=== PATIENT | male | born 1960 | race Caucasian/White ===

== ENCOUNTER 2018-11-24 15:53 | Emergency (ER) | payer BC, SELFPAY ==
[2018-11-24 16:02] VITALS: BP 199/86; PULSE 47; RESP 18; TEMP 36.5; O2SAT 98
--- NOTE | 2018-11-24 16:02 | DI.COMBO_ITS ---
SYMPTOM/DIAGNOSIS: SOB, ELEVATED D DIMER, ? PE PE CHEST CT: CT scan of the chest was performed according to the pulmonary embolus protocol. There are no priors for comparison. The thoracic aorta is intact. There is mild ectasia. No evidence of thoracic aortic dissection is seen. There is no evidence of a pulmonary embolus. Heart size is within normal limits. No significant pericardial effusion is seen. No evidence of right ventricular dysfunction is present. No thoracic adenopathy, pleural effusion or pneumothorax is present. In the lungs, there are ground glass opacities in the right upper lobe anteriorly with a tree and bud configuration noted. There is a 1 cm., pleural based nodular opacity in the right lower lobe laterally. There is a mild surrounding patchy ground glass opacity associated with it. The tracheobronchial tree is unremarkable. Upper abdominal images show small amount of abdominal ascites in the perihepatic region in the gallbladder fossa. No acute osseous abnormality is identified. IMPRESSION: 1. No evidence of a pulmonary embolus or thoracic aortic dissection. 2. Ground glass opacity in the anterior aspect of the right upper lobe suspicious for an infectious bronchiolitis. 3. Indeterminate 1 cm. pleural based density. Differential considerations include focal atelectasis or pneumonia. Neoplasm cannot be excluded. 4. Small amount of abdominal ascites. PA AND LATERAL CHEST: Comparison is made with 07/21/17. The heart is normal in size. The lungs are clear. The mediastinal structures and pleura appear intact. CONCLUSION: Normal chest.
--- NOTE | 2018-11-24 16:25 | ED.GENADUL_ITS ---
Discharge Plan Disposition Patient Disposition: HOME Condition: Good Discharge Details Chief Complaint: GenMedical Clinical Impression: Atypical pneumonia, Bradycardia, Breath shortness, Acute kidney injury, Incidental pulmonary nodule Primary Care Provider: Sonal Sorensen ED Provider: Ynois Rodriges Home Meds and New Rx's Prescriptions: New prednisone 20 mg tablet 40 mg PO DAILY 4 Days Qty: 8 RF: 0 azithromycin 250 mg tablet 250 mg PO DAILY 4 Days Qty: 4 RF: 0 No Action ibuprofen 200 MG tablet 200 mg PO DIRECTED PRNRF: 0 Discharge Instructions Instructions: Pulmonary Nodules (ED), Pneumonia (ED) Additional Instructions: You will be contacted tomorrow for the administration of Zio patch. Please take the antibiotic and the steroid as directed. Please follow-up with your primary care provider for reevaluation. Please drink 10-12 cups of water minimum per day to stay well-hydrated. You will need your renal function rechecked by your PCP and your prompt follow-up. If you notice any worsening of your symptoms any lightheadedness, dizziness, fainting, chest pain, worsening shortness of breath, fever, chills, vomiting, diarrhea, or abdominal pain, please return immediately for reassessment. As always is a pleasure participating in your care today. Referrals: Sonal Sorensen, [facility] [Primary Care Provider] - Medical Decision Making This is a 58-year-old male with no past medical history who presents today for evaluation of subjective shortness of breath over the last 2 days. He states that the symptoms came on suddenly, he has no associated cough, pleuritic chest pain, arm neck or shoulder pain. He denies a history of cardiac disease but does have a notable family history of cardiac disease. He has no significant PE risk factors. Patient symptoms are not necessarily worsened by exertion. Physical exam is otherwise benign, lungs are clear, no swelling or calf tenderness. No other abnormality. Differential is broad but includes atypical cardiac etiology, pulmonary embolism, or musculoskeletal component. We will get a d-dimer, evaluate for cardiology components, get a chest x-ray and reassess. 6:33 PM Patient's laboratory workup has returned, troponin is normal, d-dimer is notably elevated at 1100, pro BNP is also elevated at 1000 which is atypical for the patient. Unexpectedly the patient's creatinine is notably high at 1.91, with a GFR of 36.37. This does not appear to be in his normal range compared to his previous creatinine of 0.9 in 2017. The patient has not had any excessive NSAIDs, and denies any other significant risk factors that could have caused th is. He denies any wood alcohol ingestion, or other potential toxic component. While waiting for the repeat 4-hour troponin we will notably rehydrate the patient with 2 L normal saline. I did discuss with the patient the risks and benefits of his elevated d-dimer, concern for potential PE. We will reassess the creatinine after rehydration. Additionally we did contact radiology and we do not have the availability of VQ scan at this time. 9:22 PM Patient was rehydrated with 2.5 L of normal saline, repeat labs demonstrate a notable improvement in his renal function, GFR has improved over 40, creatinine is 1.7, I had a repeat long discussion with the patient regarding the risks and benefits of radiographic CT imaging in the risk of contrast, as well as the new literature within the past 5 years demonstrating that there is a minimal risk with IV contrast the scenarios. We also discussed the risks and benefits of missing a potential pulmonary embolism. There is shared decision-making process between the risks and benefits we have decided to go ahead with a CT scan. We will continue to rehydrate the patient with a total of 3 L. Repeat troponin is normal, repeat EKG continues to be benign with continue mild bradycardia of 55. CT scan results have returned and does show evidence of infectious bronchiolitis, as well as patchy groundglass nodular component in the right lower lobe with a differential including atelectasis, small infiltrate, and a vascular anomaly or neoplasm. Notable recommendation for CT follow-up for reevaluation in 3 months. There is also a small amount of abdominal ascites. Repeat abdominal exam continues to demonstrate no significant pain or tenderness. No guarding or rebound or signs of an acute abdomen. Patient's blood pressure is notably improved here in the ED. His pulse continues to be in the mid 40s. He will occasionally jump up to the 60s, while laying in bed. He continues to deny any symptoms of syncope or significant lightheadedness. He did get up and ambulate well without any signs of lightheadedness or near syncope. Although the patient's bradycardia is certainly atypical, do not feel that he needs emergent cardiac evaluation at this time, however he certainly does require close follow-up. We will place a zio patch on the patient, he does have close follow-up scheduled with his PCP we will place him on the referral list for this. I do suspect that this bradycardia may be secondary to an atypical bacterial etiology causing his CT scan findings in conjunction with his shortness of breath. We will add azithromycin for coverage of atypical component, as well as short dose of burst steroids. First dose of azithromycin and prednisone will be given here in the ED. With the patient having a low risk heart score category, as well as negative serial troponins and serial EKGs, I do feel that it is reasonable for discharge with close follow-up with his PCP. In regards to the patient's acute kidney injury I did further discuss his regular fluid intake he states that he really only drinks 2-3 cups of fluid per day at max. Feels that this may be because of his mild kidney injury, as he had a notable improvement with the IV hydration here. I discussed with the patient the importance of regular hydration drinking of 10-12 cups of fluid per day minimum. Also discussed with him the importance of close follow-up with his PCP for repeat CT scan in 3 months to evaluate for any change in the atypical lesion in his lungs. On discussion with him regarding red flags for which to return, the importance of close follow-up, and having a low threshold for return and the patient understands. I have extensively reviewed the treatment plan and discharge instructions with the patient. I have addressed all patient concerns at this time. The patient was made aware of what symptoms to monitor for that would warrant a return to the emergency department. Discussed the plan with the patient, they demonstrate verbal understanding and agreement with our assessment and plan at this time. EKG 16: 11 Rate 58, intervals normal, sinus bradycardia, no evidence of block, no significant ST elevations or depressions inverted T wave in V1 which is normal. No Q waves. No evidence of STEMI EKG 19: 37 Rate 54, intervals normal, sinus bradycardia, no significant ST elevations or depressions, inverted T waves in V1 consistent with prior EKG, no Q waves. No signs of MA prolongation, first-degree block, second-degree block or third- degree block. No evidence of STEMI. IMPRESSION: 1. No pulmonary arterial embolism. 2. Findings suspicious for infectious bronchiolitis within the anterior segment of the right upper lobe. 3. Indeterminate pleural-based density with patchy groundglass and nodular components within the right lower lobe. Differential diagnosis includes atelectasis, small infiltrate, vascular anomaly and neoplasm. Followup CT scan in 3 months is recommended. 4. Small abdominal ascites. Thank you for allowing us to participate in the care of your patient. Dictated and Authenticated by: Michael Hunt MD [facility] General Date/Time Provider Initiated Documentation: 11/24/18 15:58 . HPI Narrative: This is a he does admit to mild abdominal bloating but denies any significant abdominal pain, nausea vomiting or diarrhea. Patient also admits to palpating a notably decreased heart rate at home in the 40s over the last 2 days which he says is very atypical for him. He exercises 3 times per day, he does drink 2 beers per night but denies any alcohol otherwise or IV or illicit drug use. He did take naproxen 48 hours ago but that was the only use of NSAIDs at that time. He denies any previous history of cardiac disease or stroke. He denies any history of blood clots or PEs denies PE risk factors such as recent long car rides, immobilization, recent surgery, prior history of DVT or PE, family history of PE or DVT, morbid obesity, exogenous estrogen and smoking, hemoptysis, history of cancer. Made to a strong family history of cardiac disease in his father had a CABG at the age of 52. His uncle also of a massive heart attack at the age of 50. Patient does not smoke. He has no other complaints or modifying factors. He denies any fevers, chills, numbness, tin gling or weakness. He denies any tearing sensation in his chest or abdomen. 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 . Related Data Home Medications Medication Instructions Recorded Confirmed ibuprofen 200 mg PO DIRECTED PRN 09/27/13 11/24/18 azithromycin 250 mg PO DAILY 4 Days #4 tab 11/24/18 prednisone 40 mg PO DAILY 4 Days #8 tab 11/24/18 Previous Rx's Medication Instructions Recorded azithromycin 250 mg PO DAILY 4 Days #4 tab 11/24/18 prednisone 40 mg PO DAILY 4 Days #8 tab 11/24/18 Allergies Allergy/AdvReac Type Severity Reaction Status Date / Time pseudoephedrine HCl Allergy Heart Unverified 07/21/17 13:13 [From Sudafed] palpatations Review of Systems Review of Systems All systems reviewed & are unremarkable except as noted in HPI and below PFSH Family History Mother Essential hypertension Father Essential hypertension Heart disease Sister No problems noted. Sister No problems noted. Brother No problems noted. Social History Smoking/Tobacco Use Status: Never Substance use type: does not use Do you feel safe at home: Yes Do you feel safe in your relationship?: Yes Exam Narrative Exam Narrative: 1.Const: Well-nourished, Well-developed, appearing stated age 2.Eyes: PERRL, no conjunctival injection, and symmetrical lids. 3.ENT: Atraumatic external nose and ears. Moist MM. Neck: Symmetric, trachea midline, No thyromegaly. 4.CVS: +S1/S2, No murmurs or gallops. Peripheral pulses 2+ and equal in all extremities. Brisk capillary refill in all extremities. Radial pulses are +2 and equal bilaterally. 5.RESP: Unlabored respiratory effort. Clear to auscultation bilaterally. No wheezes rales or rhonchi 6.GI: Soft, Nontender/Nondistended, No hepatosplenomegaly. No guarding or rebound. No pulsatile abdominal mass, or significant abdominal tenderness. 7.MSK: Normocephalic/Atraumatic, Extremities w/o deformity or ttp No cyanosis or clubbing, Normal movement of all extremities. No calf swelling or tenderness. 8.Skin: Warm, Dry. No rashes or lesions. 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 Sensation grossly intact, no focal neurologic deficits. 10.Psych: (AAO) x3. Appropriate mood and affect
[2018-11-24 16:41] LABS: Abs Immature Grans 0.01 k/cumm (0.0-0.09); Absolute Basophil Count 0.04 k/cumm (0.0-0.2); Absolute Eosinophil Count 0.16 k/cumm (0.0-0.7); Absolute Neutrophil Count 2.95 k/cumm (1.2-6.7); Basophils % 0.7; Eosinophils % 2.9; HCT 39.8 % (40.0-50.0); HGB 13.6 g/dL (13.5-17.5); Immature Grans % 0.2; Lymphocytes % 29.3; Mean Corp. HGB Concentration 34.2 g/dL (32.0-36.0); Mean Corpuscular Hemoglobin 31.3 pg (27.0-33.0); Mean Corpuscular Volume 91.5 fL (80-95); Mean Platelet Volume 11.7 fL (8.0-11.0); Monocytes % 12.8; Neutrophils % 54.1; Platelet Count 128 x1000/uL (130-400); RBC 4.35 m/cumm (4.50-6.00); RBC Distribution Width 12.2 % (11.8-14.1); White Blood Cell Count 5.46 k/cumm (4.4-10.8)
[2018-11-24 17:03] LABS: ALT 27 U/L (12-78); AST 23 U/L (15-37); Albumin 3.9 g/dL (3.4-5.0); Alkaline Phosphatase 68 U/L (46-116); Anion Gap 9.3 mmol/L (3-11); BUN 23 mg/dL (7-18); Bilirubin, Total 0.8 mg/dL (0.2-1.0); CO2 28.7 mmol/L (21.0-32.0); CREATININE 1.91 mg/dL (0.70-1.30); Calcium 8.8 mg/dL (8.5-10.1); Chloride 102 mmol/L (98-107); Estimated GFR 36.37 (mL/min/1.73m2); Glucose 75 mg/dL (70-100); Magnesium 2.2 mg/dL (1.8-2.4); Potassium 3.5 mmol/L (3.5-5.1); Sodium 140 mmol/L (136-145); Total Protein 6.8 g/dL (6.4-8.2)
--- NOTE | 2018-11-24 17:12 | DI.VRAD_ITS ---
EXAM: XR Chest, 2 Views EXAM DATE/TIME: 11/24/2018 4:18 PM CLINICAL HISTORY: 58 years old, male; Signs and symptoms; Shortness of breath; Patient HX: PT sts SOB upon resting for 2 days, non smoker. TECHNIQUE: Imaging protocol: XR of the chest, 2 views. COMPARISON: CR CHEST 2 VIEWS PA,LAT 07/21/2017 2:39 PM FINDINGS: The cardiomediastinal silhouette and pulmonary vasculature are within normal limits. The lungs are clear. No pleural effusion or pneumothorax is identified. IMPRESSION: No acute process. Dictated and Authenticated by: Michael Hunt MD. Ordering:EDGAR Somers MD
[2018-11-24 17:14] LABS: D-Dimer 1110 ng/mlFEU (<500)
[2018-11-24 17:17] LABS: Troponin I < 0.02 ng/mL (0.00-0.06)
[2018-11-24] MEDS: Normal Saline 1,000 ML 1000 ML IV ×3 (17:34→19:25)
[2018-11-24 17:52] LABS: NT-proBNP 1057 pg/mL
[2018-11-24 17:53] LABS: Bilirubin Negative (Negative); Blood Negative (Negative); Clarity Clear; Glucose Negative (Negative); Ketones Negative (Negative); Leukocyte Esterase Negative (Negative); Nitrite Negative (Negative); Urobilinogen 0.2 EU/dL (Up TO 0.2)
[2018-11-24 19:51] LABS: ALT 24 U/L (12-78); AST 21 U/L (15-37); Albumin 3.4 g/dL (3.4-5.0); Alkaline Phosphatase 62 U/L (46-116); Anion Gap 8.3 mmol/L (3-11); BUN 23 mg/dL (7-18); Bilirubin, Total 0.7 mg/dL (0.2-1.0); CO2 26.7 mmol/L (21.0-32.0); Chloride 105 mmol/L (98-107); Glucose 110 mg/dL (70-100); Potassium 4.2 mmol/L (3.5-5.1); Sodium 140 mmol/L (136-145)
[2018-11-24 19:52] LABS: Troponin I < 0.02 ng/mL (0.00-0.06)
[2018-11-24 19:55] VITALS: BP 134/80; PULSE 46; RESP 16; TEMP 36.6; O2SAT 100
[2018-11-24] MEDS: Omnipaque 350 MG/ML 100 ML BTL IJ (20:24)
--- NOTE | 2018-11-24 20:46 | DI.VRAD_ITS ---
EXAM: CT Angiography Chest With Contrast EXAM DATE/TIME: 11/24/2018 8:09 PM CLINICAL HISTORY: 58 years old, male; Signs and symptoms; Shortness of breath; Patient HX: Elevated d-dimer TECHNIQUE: Imaging protocol: Axial computed tomographic angiography images of the chest with intravenous contrast using CT angiography protocol. Coronal and sagittal reformatted images were created and reviewed. 3D rendering: MIP reconstructed images were created and reviewed. Radiation optimization: All CT scans at this facility use at least one of these dose optimization techniques: automated exposure control; mA and/or kV adjustment per patient size (includes targeted exams where dose is matched to clinical indication); or iterative reconstruction. Contrast material: [id number] Contrast volume: 61 ml Contrast route: iv COMPARISON: CR XR CHEST 2V PA LATERAL 11/24/2018 4:59 PM FINDINGS: Pulmonary arteries: Normal. No pulmonary emboli. Aorta: Mild atherosclerosis of the thoracic aorta. Mild dilatation of the ascending thoracic aorta, measuring 3.6 cm in AP diameter. No aortic dissection. Lungs: Small patchy density and micronodules with a tree in bud configuration within the anterior right upper lobe on axial images 42-45, which is likely secondary to infectious bronchiolitis. Pleural-based density with patchy groundglass and nodular components within the posterior lateral right lower lobe on axial images 86 through 98 is nonspecific and may be secondary to atelectasis, small infiltrate, vascular anomaly and neoplasm. Followup CT scan in 3 months is recommended. Pleural space: Normal. No pneumothorax. No pleural effusion. Heart: Normal. No cardiomegaly. No pericardial effusion. Intraperitoneal space: Limited scans of the upper abdomen demonstrate a small amount of ascites beneath the right diaphragm, within the dante hepatis and within the fissure for the ligamentum teres. Lymph nodes: Unremarkable. No enlarged lymph nodes. Bones/joints: Unremarkable. No acute fracture. Soft tissues: Unremarkable. IMPRESSION: 1. No pulmonary arterial embolism. 2. Findings suspicious for infectious bronchiolitis within the anterior segment of the right upper lobe. 3. Indeterminate pleural-based density with patchy groundglass and nodular components within the right lower lobe. Differential diagnosis includes atelectasis, small infiltrate, vascular anomaly and neoplasm. Followup CT scan in 3 months is recommended. 4. Small abdominal ascites. Dictated and Authenticated by: Michael Hunt MD. Ordering:EDGAR Somers MD
[2018-11-24] MEDS: predniSONE 20 MG TAB 40 MG PO (21:26)
[2018-11-24] MEDS: Azithromycin 250 MG TAB 500 MG PO (21:26)
[2018-11-24 21:40] VITALS: BP 154/91; PULSE 42; RESP 16; TEMP 36.8; O2SAT 99
--- NOTE | 2018-11-25 08:19 | PDOC.ERCMPRO ---
Care Management Progress Note 11/25-Dr. Rodriges requested assistance with a PCP (Cody) f/u within two weeks for shortness of breath, holter monitor and lung infection. Referral faxed to [facility] this am.
--- NOTE | 2018-11-26 00:19 | W.ED.FU ---
Date of service: 11/24/18 Follow Up Plan: Patient called ED requesting callback from doctor. Patient was seen on the . I have reviewed Dr. Rodriges's notes. When I contacted the patient he was concerned because he is gained about 10 pounds. He feels like his belly is bloated but he is not having pain, vomiting or diarrhea. He feels that his breathing is stable. He has had no fever. He has had no chest pain or pressure. He continues to make urine. He did get a fairly significant saline load because of his elevated creatinine and the need to get CTA of the chest. Suspect that this will redistribute and patient should normalize his fluid balance over the next day. As he has had no increase in shortness of breath, chest pain/pressure, abdominal pain and continues to make urine, I have asked him to see how he does overnight into tomorrow. If there is any issues especially decreased urination, increasing shortness of breath or chest pain then he should return to the ED this weekend.
== END 2018-11-24 21:43 | disposition home or self-care (01) ==
PROVIDERS: Emergency Provider Student in an Organized Health Care Education/Training Program; PCP Nurse Practitioner Family
DX: J18.9 Pneumonia, unspecified organism (principal); R00.1 Bradycardia, unspecified; R06.02 Shortness of breath; R91.1 Solitary pulmonary nodule; N17.9 Acute kidney failure, unspecified; I10 Essential (primary) hypertension
CPT/HCPCS: 36415; 71275; 80053; 93005; 96360; 96361; 99285; 71046; 81003; 83735; 83880; 84484; 85025; 85379; 93010; J3490; J7512

== ENCOUNTER 2018-11-26 15:01 | Observation (INO) | payer BC, SELFPAY ==
[2018-11-26 15:13] VITALS: BP 165/89; PULSE 58; RESP 16; TEMP 37.4; O2SAT 100
--- NOTE | 2018-11-26 15:30 | W.ED.GENAD ---
Discharge Plan Disposition Patient Disposition: [facility] INPATIENT Condition: Stable Discharge Details Chief Complaint: FlankPain Clinical Impression: Acute kidney injury, Body fluid retention Primary Care Provider: Sonal Sorensen ED Provider: Yonis Rodriges Home Meds and New Rx's Prescriptions: No Action ibuprofen 200 MG tablet 200 mg PO DIRECTED PRNRF: 0 prednisone 20 mg tablet 40 mg PO DAILY 4 Days Qty: 8 RF: 0 azithromycin 250 mg tablet 250 mg PO DAILY 4 Days Qty: 4 RF: 0 Medical Decision Making This is a 58-year-old male with no significant past medical history who presented here 2 days ago for evaluation of shortness of breath, who was noted to have an acute kidney injury, which improved with IV fluids, however his d-dimer was notably elevated at that time, after discussing the risks and benefits through shared decision making process it was decided to perform a CT angiogram, which showed evidence of pneumonia as well as a questionable pulmonary nodule, atypical vasculature, or atypical secondary pneumonia component. Because of the patient's acute kidney injury he was given 3 L of normal saline total for rehydration. He was discharged with an order for outpatient placement of a zio patch, recommendations for close follow-up with his PCP and repeat CT scan in 3 months. The patient did note a 10-12 pound which would correlate nearly exactly with the 3 L of normal saline which would equal roughly 12-1/2 pounds of additional weight. He called the emergency department yesterday out of concern for this, was instructed to come back in the morning if he had continued concern. At the time of the phone, the patient had no other complaints of chest pain significant abdominal pain, shortness of breath, and was still urinating well. This morning the patient noted a 2-3 pound weight loss, still urinating well. He does complain of mild epigastric and right-sided abdominal pain, worse with movement, made slightly worse with yogurt this morning. He does feel mild bloating in his abdomen. Physical exam demonstrates mild epigastric and right upper quadrant tenderness. Minimal trace edema in the right lower extremity, no signs of anasarca or severe bloating. No severe ascites on exam. Patient's mild abdominal pain we will get a CT scan to rule out any other acute process, will repeat laboratory workup to reassess kidney function was improving last time on reexam. Will assess for any significant urinary abnormalities. 4:17 PM Laboratory workup is returned, creatinine is still elevated at 1.97, BUN is 25, electrolytes are normal except for slightly low potassium at 3.2. AST, ALT, and lipase are all within normal limits. ProBNP is elevated at 3000, however with the patient's continued urination, and decrease in weight this morning, I do not think that diuretics would be indicated due to his elevated creatinine. Still pending CT results at this time. 7:[address] scan results have returned, findings are notably atypical with evidence of trace pleural effusions, moderate ascites, and also interestingly there is notable contrast still present in the left kidney only. Additionally the patients urine has returned and there is no evidence of casts, significant proteinuria, altered urine specific gravity, or large hemoglobin. There is trace lysed hemoglobin, however this seems to not correlate well with severe microangiopathic hemolytic anemia certainly no RBC casts, or other significant abnormalities. With the CT scan findings, the patient's unexpected return of elevated creatinine levels in spite of excellent fluid rehydration at home and is previously improving creatinine levels, I did contact nephrology at [facility] and discussed the case with Dr Ernie Garrett. After a long discussion the differential remains broad, however he was concerned with the patient's increasing renal function and recommended admission at our facility with close nephrology consult at [facility]. He does not recommend immediate transfer to [facility] at this time. Differential includes renal artery stenosis causing the unilateral retention of contrast media in the renal cortex, which would explain his elevated blood pressure. However differential certainly includes vasculitis versus infectious etiology. Dr. Garrett was also concerned that the pulmonary findings found on the previous CT may in fact actually be a vasculitis component reflective of pulmonary renal syndrome. He recommended ordering complement factors, DELON, ANCA, sed rate, CRP, hepatitis profile, with repeat urinalysis and repeat chest x-ray tomorrow. He requests to be called back at [facility] Wednesday or Wednesday when the results have returned. He would like to be kept in the loop for the patient. I did discuss this with the patient and he agrees with the plan. I contacted Dr. Mccartney, he agrees the assessment and plan. I have extensively reviewed the treatment plan with the patient. I have addressed all patient concerns at this time. I have also discussed the plan with the admitting physician and they agree with the current assessment and plan and have agreed to assume responsibility for the patient. All parties demonstrate verbal understanding and agreement with our assessment and plan at this time. FINDINGS: Lower thorax: Trace pleural effusions and bibasilar atelectasis. Moderate scrotal hydrocele. ABDOMEN: Liver: Normal. No mass. Gallbladder and bile ducts: There is vicarious gallbladder contrast excretion. Pancreas: Normal. No ductal dilation. Spleen: Normal. No splenomegaly. Adrenals: Normal. No mass. Kidneys and ureters: Contrast material in the left kidney presumably related to end-stage renal disease. Moderate volume of ascites. Bilateral renal cortical atrophy. There is no hydronephrosis. Stomach and bowel: Normal. No obstruction. No mucosal thickening. Appendix: A normal appendix is identified. PELVIS: Bladder: Unremarkable as visualized. Reproductive: See Lower Thorax Finding. ABDOMEN and PELVIS: Intraperitoneal space: See Kidneys And Ureters Finding. No free air. Bones/joints: No acute fracture. No dislocation. Soft tissues: Unremarkable. Vasculature: Normal. No abdominal aortic aneurysm. Lymph nodes: Normal. No enlarged lymph nodes. IMPRESSION: Fluid overload with trace pleural effusions and moderate ascites secondary to renal failure. No other acute findings. Thank you for allowing us to participate in the care of your patient. Dictated and Authenticated by: Lola Lombardi MD 11/26/2018 5:15 PM Eastern Time ([place] & [place]) HPI General Date/Time Provider Initiated Documentation: 11/26/18 15:05. HPI Narrative: This is a 58-year-old male with no significant past medical history who presented here 2 days ago for evaluation of shortness of breath, who was noted to have an acute kidney injury, which improved with IV fluids, however his d-dimer was notably elevated at that time, after discussing the risks and benefits through shared decision making process it was decided to perform a CT angiogram, which showed evidence of pneumonia as well as a questionable pulmonary nodule, atypical vasculature, or atypical secondary pneumonia component. Because of the patient's acute kidney injury he was given 3 L of normal saline total for rehydration. He was discharged with an order for outpatient placement of a zio patch, recommendations for close follow-up with his PCP and repeat CT scan in 3 months. The patient did note a 10-12 pound which would correlate nearly exactly with the 3 L of normal saline which would equal roughly 12-1/2 pounds of additional weight. He called the emergency department yesterday out of concern for this, was instructed to come back in the morning if he had continued concern. At the time of the phone, the patient had no other complaints of chest pain significant abdominal pain, shortness of breath, and was still urinating well. This morning the patient noted a 2-3 pound weight loss, still urinating well. He does complain of mild epigastric and right-sided abdominal pain, worse with movement, made slightly worse with yogurt this morning. He does feel mild bloating in his abdomen. Patient denies any other complaints. He states that his shortness of breath has improved. He is taking the antibiotic as directed. And is continuing to take the steroids as directed. Patient denies any other complaints at this time. No other modifying factors. Related Data Home Medications Medication Instructions Recorded Confirmed ibuprofen 200 mg PO DIRECTED PRN 09/27/13 11/26/18 azithromycin 250 mg PO DAILY 4 Days #4 tab 11/24/18 11/26/18 prednisone 40 mg PO DAILY 4 Days #8 tab 11/24/18 11/26/18 Previous Rx's Medication Instructions Recorded azithromycin 250 mg PO DAILY 4 Days #4 tab 11/24/18 prednisone 40 mg PO DAILY 4 Days #8 tab 11/24/18 Allergies Allergy/AdvReac Type Severity Reaction Status Date / Time pseudoephedrine HCl Allergy Heart Unverified 11/26/18 15:37 [From [facility]] palpatations General Stated Complaint: FlankPain IVETTE: 3 Review of Systems Review of Systems All systems reviewed & are unremarkable except as noted in HPI and below PFSH Family History Mother Essential hypertension Father Essential hypertension Heart disease Sister No problems noted. Sister No problems noted. Brother No problems noted. Social History Smoking/Tobacco Use Status: Never Substance use type: does not use Do you feel safe at home: Yes Do you feel safe in your relationship?: Yes Exam Narrative Exam Narrative: 1.Const: Well-nourished, Well-developed, appearing stated age 2.Eyes: PERRL, no conjunctival injection, and symmetrical lids. 3.ENT: Atraumatic external nose and ears. Moist MM. Neck: Symmetric, trachea midline, No thyromegaly. 4.CVS: +S1/S2, No murmurs or gallops. Peripheral pulses 2+ and equal in all extremities. Brisk capillary refill in all extremities. 5.RESP: Unlabored respiratory effort. Clear to auscultation bilaterally. No wheezes rales or rhonchi 6.GI: Soft, Nondistended, No hepatosplenomegaly. No guarding or rebound. No signs of abdominal distention or severe ascites. Mild pain in the epigastric region, and right upper quadrant. No pain at McBurney's point, negative Simpson sign. No flank or CVA tenderness. No evidence of anasarca 7.MSK: Normocephalic/Atraumatic, Extremities w/o deformity or ttp No cyanosis or clubbing, Normal movement of all extremities. Minimal trace pitting edema in the right bates. No calf tenderness. No significant pitting edema on the left bates. 8.Skin: Warm, Dry. No rashes or lesions. 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 Sensation grossly intact, no focal neurologic deficits. 10.Psych: (AAO) x3. Appropriate mood and affect Course Vital Signs Temperature 37.4 C 11/26/18 15:13 Pulse 58 L 11/26/18 15:13 Respiratory Rate 16 11/26/18 15:13 Blood Pressure 165/89 H 11/26/18 15:13 Pulse Oximetry 100 11/26/18 15:13 Temperature 37.4 C 11/26/18 15:13 Temperature Source Skin 11/26/18 15:13 Pulse 58 L 11/26/18 15:13 Respiratory Rate 16 11/26/18 15:13 Blood Pressure 165/89 H 11/26/18 15:13 Blood Pressure Position Sitting 11/26/18 15:13 Pulse Oximetry 100 11/26/18 15:13 Oxygen Delivery Method Room Air 11/26/18 15:13 Oxygen Flow Rate 0 11/26/18 15:13
[2018-11-26 15:32] LABS: Bilirubin Negative (Negative); Blood Trace-lysed (Negative); Clarity Clear; Glucose Negative (Negative); Ketones Negative (Negative); Leukocyte Esterase Negative (Negative); Nitrite Negative (Negative); Specific Gravity <= 1.005 (1.005-1.025); Urobilinogen 0.2 EU/dL (Up TO 0.2)
[2018-11-26 15:38] LABS: Abs Immature Grans 0.03 k/cumm (0.0-0.09); HCT 37.8 % (40.0-50.0); HGB 13.3 g/dL (13.5-17.5); Mean Corp. HGB Concentration 35.2 g/dL (32.0-36.0); Mean Corpuscular Hemoglobin 32.2 pg (27.0-33.0); Mean Corpuscular Volume 91.5 fL (80-95); Mean Platelet Volume 11.9 fL (8.0-11.0); RBC 4.13 m/cumm (4.50-6.00); RBC Distribution Width 12.3 % (11.8-14.1); White Blood Cell Count 10.68 k/cumm (4.4-10.8)
[2018-11-26 15:46] LABS: Bacteria Negative HPF (Negative); C & S Indicated? No; Casts Negative LPF (Negative); Crystals Negative HPF (Negative); Epithelial Cells Negative HPF (Negative); Mucus Negative (Negative); RBC 0-2 (0-2); WBC Negative HPF (0-5)
[2018-11-26 15:59] LABS: ALT 32 U/L (12-78); AST 35 U/L (15-37); Alkaline Phosphatase 63 U/L (46-116); Anion Gap 8.5 mmol/L (3-11); BUN 25 mg/dL (7-18); Bilirubin, Total 0.8 mg/dL (0.2-1.0); CO2 26.5 mmol/L (21.0-32.0); CREATININE 1.97 mg/dL (0.70-1.30); Calcium 8.9 mg/dL (8.5-10.1); Chloride 103 mmol/L (98-107); Glucose 92 mg/dL (70-100); Lipase 214 U/L (73-393); NT-proBNP 3360 pg/mL; Sodium 138 mmol/L (136-145); Total Protein 6.7 g/dL (6.4-8.2)
[2018-11-26 16:02] LABS: Platelet Count 116 x1000/uL (130-400)
[2018-11-26 16:03] LABS: Absolute Lymphocyte Count 2.24 k/cumm (1.2-3.4); Absolute Monocyte Count 1.28 k/cumm (0.11-0.7); Absolute Neutrophil Count 7.16 k/cumm (1.2-6.7); Atypical Lymphocytes % 6
[2018-11-26 16:13] LABS: Potassium 3.2 mmol/L (3.5-5.1)
--- NOTE | 2018-11-26 16:49 | DI.CT_ITS ---
SYMPTOMS/DIAGNOSIS: BLOATING, RIGHT-SIDED ABDOMINAL PAIN CT OF THE ABDOMEN AND PELVIS: A noncontrast exam was performed. The patient had a PE chest CT November,. There is residual contrast seen within the left renal parenchyma on the current exam. A severe stenosis of the origin of the left renal artery is noted on the prior PE CT. No hydronephrosis or perinephric collections are seen. There is a moderate quantity of ascites seen around the liver, as well as spleen and within the mesentery and pelvis. The liver, spleen, adrenals and pancreas are unremarkable. The appendix appears normal. The prostate is mildly enlarged. The urinary bladder is unremarkable. There is a small fatty-containing left inguinal hernia. The lung bases show tiny effusions and minimal dependent changes. IMPRESSION: 1. Residual contrast in the left renal parenchyma. No contrast excretion into the collecting system is seen at this time. A severe stenosis of the proximal left renal artery was demonstrated on the previous chest CT. 2. Ascites. No evidence of bowel obstruction or appendicitis.
--- NOTE | 2018-11-26 17:15 | DI.VRAD_ITS ---
EXAM: CT Abdomen and Pelvis Without Contrast EXAM DATE/TIME: 11/26/2018 4:49 PM CLINICAL HISTORY: 58 years old, male; Pain; Abdominal pain; Flank; Right; Patient HX: Bloating, right sided abdominal pain. TECHNIQUE: Imaging protocol: Axial computed tomography images of the abdomen and pelvis without contrast. Coronal and sagittal reformatted images were created and reviewed. Radiation optimization: All CT scans at this facility use at least one of these dose optimization techniques: automated exposure control; mA and/or kV adjustment per patient size (includes targeted exams where dose is matched to clinical indication); or iterative reconstruction. COMPARISON: No relevant prior studies available. FINDINGS: Lower thorax: Trace pleural effusions and bibasilar atelectasis. Moderate scrotal hydrocele. ABDOMEN: Liver: Normal. No mass. Gallbladder and bile ducts: There is vicarious gallbladder contrast excretion. Pancreas: Normal. No ductal dilation. Spleen: Normal. No splenomegaly. Adrenals: Normal. No mass. Kidneys and ureters: Contrast material in the left kidney presumably related to end-stage renal disease. Moderate volume of ascites. Bilateral renal cortical atrophy. There is no hydronephrosis. Stomach and bowel: Normal. No obstruction. No mucosal thickening. Appendix: A normal appendix is identified. PELVIS: Bladder: Unremarkable as visualized. Reproductive: See Lower Thorax Finding. ABDOMEN and PELVIS: Intraperitoneal space: See Kidneys And Ureters Finding. No free air. Bones/joints: No acute fracture. No dislocation. Soft tissues: Unremarkable. Vasculature: Normal. No abdominal aortic aneurysm. Lymph nodes: Normal. No enlarged lymph nodes. IMPRESSION: Fluid overload with trace pleural effusions and moderate ascites secondary to renal failure. No other acute findings. Dictated and Authenticated by: Lola Lombardi MD. Ordering:EDGAR Somers MD
--- NOTE | 2018-11-26 18:38 | HPE_ITS ---
Date of service: 11/26/18 Time of Service: 18:38 Assessment and Plan (1) MUSA (acute kidney injury): Start date: 11/26/18 Current visit: No Status: Acute This is a 58-year-old gentleman who has new onset increase in creatinine which was not responding to IV fluid resuscitation by ED visit previously and was to be observed with nephrology to follow-up by phone consultation in the morning. He did not want to stay at this facility and was leaving AMA to be seen at [facility] with his friends and family to bring him to the ED at that facility. I did discuss the safety of this and the rationale of staying for observation with him by phone and wished him a safe travels with the knowledge that after being seen at [facility] ED he may not be admitted directly. (2) Acute right flank pain: Start date: 11/26/18 Current visit: No Status: Acute The patient was having waxing and waning right flank pain which was what concerned him about staying at [facility] rather than being at a tertiary care center facility. (3) HTN (hypertension): Start date: 11/26/18 Current visit: No Status: Chronic Patient did not have a history of hypertension as an outpatient and this may be associated with his right kidney dysfunction as seen by retained IV contrast indicating some dysfunction without obstruction. He need to be evaluated for renal artery stenosis. 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 He agreed to stay for observation simply to monitor his blood pressure and follow-up on his lab with rediscussion with a tertiary care center in the morning. He was on prednisone and Zithromax for bronchitis and groundglass lung opacities which were found at his first emergency room visit. With his right flank discomfort persisting he return to the ER for evaluation was found to have probable decreased function of the right kidney with no obstructive signs by CT scan. His creatinine was rising rather than decreased after IV fluid resuscitation with his previous ER visit. The ER physician did consult with nephrology who wanted us to observe him overnight with no further IV fluid resuscitation or diuresis and continue coverage for his probable bronchitis and lung opacities. Once patient came to the floor and had talked to his family and friends, he decided to sign out AGAINST MEDICAL ADVICE with persistence after conversing with me by phone as to his rationale. His friends told him that he should be at [facility] in case something emergent happened that could not be taken care of at this hospital. He did not feel comfortable staying at [facility] with observation and was to have his friends drive him to [facility] emergency room for evaluation. I told him that is not a guarantee that he would be admitted but at least they can evaluate him further with nephrology services available and possible imaging of his right kidney available at their facility that could not be done at [facility] as to whether he had renal artery stenosis, though this would not be deemed an emergency. What was concerning him was his recurrent right flank pain which was not subsiding and present when I was conversing with him. If this was from his right kidney dysfunction, more emergent evaluation is not unreasonable, though the dowel pin man by consultation with our ED physician did not think it was emergent. The patient left the facility after his conversation with me by phone and without being physically seen or evaluated by me. It was AGAINST MEDICAL ADVICE since he had already been admitted for observation. [facility] Family History Mother Essential hypertension Father Essential hypertension Heart disease Sister No problems noted. Sister No problems noted. Brother No problems noted. Social History Smoking/Tobacco Use Status: Never Substance use type: does not use Do you feel safe at home: Yes Do you feel safe in your relationship?: Yes Meds Home Medications Medication Instructions Recorded Confirmed Type ibuprofen 200 mg PO DIRECTED PRN 09/27/13 11/26/18 History azithromycin 250 mg PO DAILY 4 Days #4 tab 11/24/18 11/26/18 Rx prednisone 40 mg PO DAILY 4 Days #8 tab 11/24/18 11/26/18 Rx Allergies Allergy/AdvReac Type Severity Reaction Status Date / Time pseudoephedrine HCl Allergy Heart Unverified 11/26/18 15:37 [From [facility]] palpatations Results Labs : 11/26/18 15:35 11/26/18 15:35 Laboratory Results - last 24 hr 11/26/18 11/26/18 11/26/18 15:17 15:35 15:35 WBC 10.68 RBC 4.13 L Hgb 13.3 L Hct 37.8 L MCV 91.5 MCH 32.2 MCHC 35.2 RDW 12.3 Plt Count 116 L MPV 11.9 H Immature Gran % 0.0 Neutrophils % 66.0 Band Neutrophils % 1.0 Lymphocytes % 15.0 Atypical Lymphs % 6 Monocytes % 12.0 Eosinophils % 0.0 Basophils % 0.0 Absolute Neutrophils 7.16 H Absolute Lymphocytes 2.24 Absolute Monocytes 1.28 H Absolute Eosinophils 0.00 Absolute Basophils 0.00 Sodium 138 Potassium 3.2 L D Chloride 103 Carbon Dioxide 26.5 Anion Gap 8.5 BUN 25 H Creatinine 1.97 H Estimated GFR/1.73 m2 35.10 Glucose 92 Calcium 8.9 Total Bilirubin 0.8 AST 35 ALT 32 Alkaline Phosphatase 63 NT-Pro-B Natriuret Pep 3360 H Total Protein 6.7 Albumin 4.0 Lipase 214 Urine Color Yellow Urine Clarity Clear Urine pH 6.0 Ur Specific [place] <= 1.005 Urine Protein Negative Urine Ketones Negative Urine Blood Trace-lysed H Urine Nitrite Negative Urine Bilirubin Negative Urine Urobilinogen 0.2 Ur Leukocyte Esterase Negative Urine RBC 0-2 Urine WBC Negative Ur Epithelial Cells Negative Urine Crystals Negative Urine Bacteria Negative Urine Casts Negative Urine Mucus Negative Ur Culture Indicated? No Urine Glucose Negative Last Vital Signs Temp 37.4 C 11/26/18 15:13 Pulse 58 L 11/26/18 15:13 Resp 16 11/26/18 15:13 BP 165/89 H 11/26/18 15:13 Pulse Ox 100 11/26/18 15:13
[2018-11-26 18:46] LABS: C-Reactive Protein 0.19 mg/dL (0.0-0.3)
[2018-11-26] MEDS: Acetaminophen 325 MG TAB PO (18:50)
[2018-11-26 19:09] VITALS: BP 160/94; PULSE 61; RESP 16; TEMP 37.4; O2SAT 97
[2018-11-26 19:28] LABS: ESR 9 MM/HR (1-20); FREE T4 0.84 ng/dL (0.76-1.46)
--- NOTE | 2018-11-28 08:09 | PDOC.ERCMPRO ---
Care Management Progress Note 11/28-Dr. Rodriges requested assistance with a PCP ([facility]) f/u this week for acute kidney injury. Patient was admitted observation to the med/surg unit. Referral faxed to [facility] this am.
[2018-11-28 10:04] LABS: C3 Complement 92 mg/dL (81-157); C4 Complement 32 mg/dL (13-39)
[2018-11-28 12:13] LABS: Hepatitis A Antibody IgM Negative (NEGAT); Hepatitis B Core Antibody Negative (NEGAT); Hepatitis B surface Ag Negative (NEGAT); Hepatitis C Ab w Rflx HCV PCR Negative (NEGAT)
[2018-11-28 14:40] LABS: ANA Interpretation Negative (NEGAT)
[2018-11-28 16:25] LABS: Myeloperoxidase Ab IgG <0.2 U; Proteinase 3 Ab (PR3) <0.2 U
[2018-11-29 13:23] LABS: Complement C1q, S 17 mg/dL (12 - 22)
[2018-11-29 17:15] LABS: C2 Complement, Functional 67 U/mL (25 - 47); C4 Complement,Functional 54 U/mL (22 - 45); Complement, Total >75 U/mL (30 - 75)
== END 2018-11-26 19:45 | disposition left against medical advice (07) ==
LOC: ER 19:13 → MS 19:17
PROVIDERS: Admitting Provider Family Medicine; Emergency Provider Student in an Organized Health Care Education/Training Program; PCP Nurse Practitioner Family; Visit Provider Family Medicine
DX: N17.9 Acute kidney failure, unspecified (principal); R10.12 Left upper quadrant pain; R03.0 Elevated blood-pressure reading, without diagnosis of hypertension; R93.422 Abnormal radiologic findings on diagnostic imaging of left kidney; R18.8 Other ascites; Z53.29 Procedure and treatment not carried out because of patient's decision for other reasons
CPT/HCPCS: 36415; 80053; 83690; 85652; 86161; 86704; 86709; 86803; 87340; 99284; 74176; 81003; 81015; 83516; 83880; 84439; 84443; 85025; 86038; 86140; 86160; 86162; 99285; G0378

== ENCOUNTER 2020-08-12 12:45 | Outpatient (REF) | payer BC, SELFPAY ==
[2020-08-14 09:42] LABS: COVID-19 RT-PCR Result NEGATIVE (Negative)
== END 2020-08-12 13:05 ==
LOC: LBO 12:45
PROVIDERS: PCP Pediatrics; Visit Provider Pediatrics
DX: Z03.818 Encounter for observation for suspected exposure to other biological agents ruled out (principal)
CPT/HCPCS: U0003

== ENCOUNTER 2021-10-20 01:37 | Outpatient (CLI) | payer BC, SELFPAY | END 2021-10-20 01:38 | disposition home or self-care (01) | LOC: LBO 01:38 | PROVIDERS: Visit Provider Internal Medicine Nephrology ==

== ENCOUNTER 2021-11-07 03:53 | Outpatient (CLI) | payer BC, SELFPAY ==
[2021-11-07 16:22] LABS: Abs Immature Grans 0.01 10^3/uL (0.0-0.06); Absolute Basophil Count 0.06 10^3/uL (0.0-0.2); Absolute Eosinophil Count 0.15 10^3/uL (0.0-0.7); Absolute Monocyte Count 0.59 10^3/uL (0.1-0.8); Absolute Neutrophil Count 2.75 10^3/uL (1.2-6.7); Basophils % 1.2; Eosinophils % 2.9; HCT 42.1 % (40.0-50.0); Immature Grans % 0.2; MCH 31.2 pg (27.0-33.0); MCHC 33.3 % (32.0-36.0); MCV 93.8 fL (80-95); MPV 10.8 fL (8.0-11.0); Monocytes % 11.4; Neutrophils % 53.3; Nucleated RBC 0 %; Platelet Count 169 10^3/uL (130-400); RBC 4.49 10^6/uL (4.36-5.78); RDW-SD 41.6 fL; WBC 5.16 10^3/uL (4.4-10.8)
[2021-11-07 16:26] LABS: Bilirubin Negative (Negative); Blood Negative (Negative); Clarity Clear (Clear); Glucose Negative (Negative); Ketones Negative (Negative); Leukocyte Esterase Negative (Negative); Nitrite Negative (Negative); Urobilinogen 0.2 EU/dL (Up TO 0.2)
[2021-11-07 17:17] LABS: Anion Gap 5.4 mmol/L (3-11); BUN 17 mg/dL (7-18); CO2 29.6 mmol/L (21.0-32.0); CREATININE 1.5 mg/dL (0.70-1.30); Calcium 8.7 mg/dL (8.5-10.1); Chloride 107 mmol/L (98-107); Estimated GFR 47.58 (mL/min/1.73m2); Glucose 131 mg/dL (74-106); Potassium 4.6 mmol/L (3.5-5.1); Sodium 142 mmol/L (136-145)
[2021-11-07 17:18] LABS: COMMENT (LAB VIEW ONLY) 73.21 mg/dL; PROTEIN 10.1 mg/dL; Prot/Crea Ur Ratio 0.13
== END 2021-11-07 03:54 | disposition home or self-care (01) ==
LOC: LBO 03:53
PROVIDERS: Visit Provider Nurse Practitioner
DX: N28.0 Ischemia and infarction of kidney (principal)
CPT/HCPCS: 36415; 80048; 81003; 82565; 84156; 85025

== ENCOUNTER 2022-04-23 03:49 | Outpatient (CLI) | payer BC, SELFPAY ==
[2022-04-23 07:50] LABS: Abs Immature Grans 0.01 10^3/uL (0.0-0.06); Absolute Basophil Count 0.09 10^3/uL (0.0-0.2); Absolute Eosinophil Count 0.36 10^3/uL (0.0-0.7); Absolute Lymphocyte Count 1.78 10^3/uL (1.2-3.4); Absolute Monocyte Count 0.69 10^3/uL (0.1-0.8); Absolute Neutrophil Count 2.86 10^3/uL (1.2-6.7); Basophils % 1.6; Eosinophils % 6.2; HCT 47.2 % (40.0-50.0); HGB 15.6 g/dL (13.5-17.5); Immature Grans % 0.2; Lymphocytes % 30.7; MCH 31.1 pg (27.0-33.0); MCHC 33.1 % (32.0-36.0); MCV 94 fL (80-95); Monocytes % 11.9; Neutrophils % 49.4; Platelet Count 170 10^3/uL (130-400); RBC 5.02 10^6/uL (4.36-5.78); RDW 11.9 % (11.8-14.1); RDW-SD 41.4 fL; WBC 5.79 10^3/uL (4.4-10.8)
[2022-04-23 08:22] LABS: ALT 27 U/L (16-63); AST 23 U/L (15-37); Albumin 4.2 g/dL (3.4-5.0); Alkaline Phosphatase 72 U/L (46-116); Anion Gap 8.8 mmol/L (3-11); BUN 19 mg/dL (7-18); Bilirubin, Total 0.6 mg/dL (0.2-1.0); CO2 30.2 mmol/L (21.0-32.0); CREATININE 1.4 mg/dL (0.70-1.30); Calcium 9.1 mg/dL (8.5-10.1); Calculated LDL 126 mg/dL (<100); Chloride 103 mmol/L (98-107); Cholesterol 200 mg/dL (<200); Estimated GFR 51.52 (mL/min/1.73m2); Glucose 97 mg/dL (74-106); HDL Cholesterol 62 mg/dL (40-60); Potassium 4.4 mmol/L (3.5-5.1); Sodium 142 mmol/L (136-145); Total Protein 7.7 g/dL (6.4-8.2); Triglyceride 60 mg/dL (<150)
[2022-04-24 09:29] LABS: Hepatitis B Surface Ag Negative (Negative)
[2022-04-24 10:21] LABS: Hepatitis C Ab w Rflx HCV PCR Negative (Negative)
[2022-04-24 10:32] LABS: HIV-1/2 Ag & Ab Screen Negative (Negative)
[2022-04-24 19:08] LABS: Syphilis IgG w/Reflex Nonreactive (Nonreactive)
[2022-04-27 12:51] LABS: TB Interpretation Negative (Negative)
== END 2022-04-23 03:50 | disposition home or self-care (01) ==
LOC: LBO 03:50
PROVIDERS: Visit Provider Student in an Organized Health Care Education/Training Program
DX: Z00.00 Encounter for general adult medical examination without abnormal findings (principal); Z11.3 Encounter for screening for infections with a predominantly sexual mode of transmission; Z11.59 Encounter for screening for other viral diseases; Z01.84 Encounter for antibody response examination; Z11.4 Encounter for screening for human immunodeficiency virus [HIV]; Z11.1 Encounter for screening for respiratory tuberculosis; Z13.220 Encounter for screening for lipoid disorders; Z13.0 Encounter for screening for diseases of the blood and blood-forming organs and certain disorders involving the immune mechanism; Z13.228 Encounter for screening for other metabolic disorders
CPT/HCPCS: 36415; 80053; 80061; 86803; 87340; 87389; 85025; 86480; 86780

== ENCOUNTER 2022-06-24 02:43 | Outpatient (CLI) | payer BC, SELFPAY ==
[2022-06-24 16:49] LABS: Bilirubin Negative (Negative); Blood Negative (Negative); Clarity Clear (Clear); Glucose Negative (Negative); Ketones Negative (Negative); Leukocyte Esterase Negative (Negative); Nitrite Negative (Negative); Specific Gravity 1.015 (1.005-1.025); Urobilinogen 0.2 EU/dL (Up TO 0.2); pH 6.5 (5-8)
[2022-06-24 17:09] LABS: COMMENT (LAB VIEW ONLY) 45.41 mg/dL; PROTEIN < 6.0 mg/dL
[2022-06-26 09:58] LABS: HIV-1/2 Ag & Ab Screen Negative (Negative)
== END 2022-06-24 02:44 | disposition home or self-care (01) ==
PROVIDERS: Visit Provider Student in an Organized Health Care Education/Training Program
DX: N28.0 Ischemia and infarction of kidney (principal); Z00.00 Encounter for general adult medical examination without abnormal findings; Z11.4 Encounter for screening for human immunodeficiency virus [HIV]
CPT/HCPCS: 36415; 87389; 81003; 82565; 84156

== ENCOUNTER 2023-01-15 17:34 | Outpatient (CLI) | payer BC, SELFPAY ==
[2023-01-15 17:01] LABS: Abs Immature Grans 0.01 10^3/uL (0.0-0.06); Absolute Basophil Count 0.08 10^3/uL (0.0-0.2); Absolute Eosinophil Count 0.29 10^3/uL (0.0-0.7); Absolute Monocyte Count 0.61 10^3/uL (0.1-0.8); Absolute Neutrophil Count 2.85 10^3/uL (1.2-6.7); Basophils % 1.4; Eosinophils % 5.1; HCT 43.6 % (40.0-50.0); HGB 14.8 g/dL (13.5-17.5); Immature Grans % 0.2; Lymphocytes % 31.9; MCH 31.4 pg (27.0-33.0); MCHC 33.9 % (32.0-36.0); MCV 93 fL (80-95); MPV 10.5 fL (8.0-11.0); Monocytes % 10.8; Neutrophils % 50.6; Platelet Count 172 10^3/uL (130-400); RBC 4.71 10^6/uL (4.36-5.78); RDW-SD 41.5 fL; WBC 5.64 10^3/uL (4.4-10.8)
[2023-01-15 17:03] LABS: Bilirubin Negative (Negative); Blood Negative (Negative); Clarity Clear (Clear); Glucose Negative (Negative); Ketones Negative (Negative); Leukocyte Esterase Negative (Negative); Nitrite Negative (Negative); Specific Gravity 1.015 (1.005-1.025); Urobilinogen 0.2 mg/dL (Up to 0.2)
[2023-01-15 17:39] LABS: COMMENT (LAB VIEW ONLY) 101.04 mg/dL; PROTEIN 7.9 mg/dL; Prot/Crea Ur Ratio 0.07
[2023-01-15 17:41] LABS: Albumin 3.9 g/dL (3.4-5.0); Anion Gap 5.8 mmol/L (3-11); BUN 25 mg/dL (7-18); CO2 30.2 mmol/L (21.0-32.0); CREATININE 1.7 mg/dL (0.70-1.30); Chloride 106 mmol/L (98-107); Estimated GFR 45.02 (mL/min/1.73m2); Glucose 126 mg/dL (74-106); PHOSPHORUS 3.7 mg/dL (2.6-4.7); Potassium 4.4 mmol/L (3.5-5.1); Sodium 142 mmol/L (136-145)
[2023-01-15 17:41] LABS: COMMENT (LAB VIEW ONLY) 100.62 mg/dL; Microalb ug/mg Crea 4.4 ug/mg Cr
[2023-01-15 18:30] LABS: Vitamin D 25 Total 28.6 ng/mL (30-100)
[2023-01-18 10:22] LABS: Parathyroid Hormone,Intact 65 pg/mL (19-88)
== END 2023-01-15 17:35 | disposition home or self-care (01) ==
LOC: LBO 17:35
PROVIDERS: Visit Provider Nurse Practitioner
DX: I70.1 Atherosclerosis of renal artery (principal); R79.89 Other specified abnormal findings of blood chemistry; E55.9 Vitamin D deficiency, unspecified; R73.09 Other abnormal glucose; I10 Essential (primary) hypertension
CPT/HCPCS: 36415; 80048; 82306; 81003; 82040; 82043; 82565; 82570; 83970; 84100; 84156; 85025

== ENCOUNTER 2024-03-03 01:38 | Outpatient (CLI) | payer BC, SELFPAY ==
[2024-03-03 11:35] LABS: Calculated LDL 65 mg/dL (<100); Cholesterol 134 mg/dL (<200); HDL Cholesterol 60 mg/dL (40-60); Triglyceride 49 mg/dL (<150)
== END 2024-03-03 01:39 | disposition home or self-care (01) ==
LOC: LBO 01:38
PROVIDERS: Visit Provider Internal Medicine Cardiovascular Disease
DX: I10 Essential (primary) hypertension (principal); I77.819 Aortic ectasia, unspecified site
CPT/HCPCS: 36415; 80061

== ENCOUNTER 2024-06-09 02:50 | Outpatient (CLI) | payer BC, SELFPAY ==
--- OUTSIDE RECORDS SUMMARY | 2024-06-09 02:52 | XMS_ITS | Encounter Summary ---
Author Organization [facility] Address [address] [place] [address] Care Team Providers Care Hoistman Name Role Phone Unavailable Primary Care Provider Unavailabl e Encounter Details Date Type Department Care Team (Late st Contact Info) Description 04/24/2022 Lab Requisition [facility] Pathology & Laboratory Medicine - [facility] [address] [place] [address] Outr Resulting Lab, Provider Social History Tobacco Use Types Packs/Day Years Used Date Smoking Tobacco: Never Assessed Interpersonal Safety Answer Date Record ed Physically Hurt Never 08/14/2020 Verbally Threaten Not on file 08/14/2020 Sex and Gender Information Value Date Recorded Sex Assigned at Not on file Gender Identity Not on file Sexual Orientation Not on file documented as of this encounter Plan of Treatment Not on file documented as of this encounter Procedures Procedure Name Priority Date/Time Associated Diagnosis Comments QUANTIFERON MITOGEN (PERFORMABLE) Today 04/23/2022 7:37 EDT QUANTIFERON TB2 (PERFORMABLE) Today 04/23/2022 7:37 EDT QUANTIFERON TB1 (PERFORMABLE) Today 04/23/2022 7:37 EDT QUANTIFERON NIL (PERFORMABLE) Today 04/23/2022 7:37 EDT QUANTIFERON INTERPRETATION (PERFORMABLE) Today 04/23/2022 7:37 EDT QUANTIFERON TB GOLD PLUS Routine 04/23/2022 7:37 EDT documented in this encounter Results * QUANTIFERON INTERPRETATION (PERFORMABLE) (04/23/2022 7:37 EDT) Quantiferon Interpretation Negative Negative 04/27/2022 12:46 EDT [facility] Comment:No interferon-gamma response to M. tuberculosis antigens was detected. ??Infection with M. tuberculosis is unlikely. A single negative result does not exclude infection with M. tuberculosis. ??In patients at high risk for M. tuberculosis infection, a second test should be considered. TB1 Ag minus Nil 0.00 IU/ml 04/27/20 12:46 EDT [facility] TB2 Ag minus Nil 0.00 IU/mL 04/27/20 12:46 EDT [facility] Blood VENOUS BLOOD / Unknown 04/23/2022 7:37 EDT 04/27/2022 12:38 EDT Narrative [facility] - 04/27/2022 12:46 EDT Results were obtained with the Qiagen QuantiFERON-TB Gold Plus CLIA. New platform in use 05/14/2021 Provider Outr Resulting Lab IMMUNOLOGY A ND SEROLOGY ORDERABLES Performing Organization Address [facility] [[email or web address]] de Phone Number [facility] [address] [place] [address] * QUANTIFERON MITOGEN (PERFORMABLE) (04/23/2022 7:37 EDT) Blood VENOUS BLOOD / Unknown 04/23/2022 7:37 EDT 04/24/2022 17:16 EDT Provider Outr Resulting Lab IMMUNOLOGY A ND SEROLOGY ORDERABLES Performing Organization Address [facility] Co de Phone Number [facility] [address] [place] [phone] * QUANTIFERON TB2 (PERFORMABLE) (04/23/2022 7:37 EDT) Blood VENOUS BLOOD / Unknown 04/23/2022 7:37 EDT 04/24/2022 17:16 EDT Provider Outr Resulting Lab IMMUNOLOGY A ND SEROLOGY ORDERABLES Performing Organization Address [facility] Co de Phone Number [facility] [address] [place] [phone] * QUANTIFERON TB1 (PERFORMABLE) (04/23/2022 7:37 EDT) Blood VENOUS BLOOD / Unknown 04/23/2022 7:37 EDT 04/24/2022 17:16 EDT Provider Outr Resulting Lab IMMUNOLOGY A ND SEROLOGY ORDERABLES Performing Organization Address [facility] Co de Phone Number [facility] [address] [place] [address] * QUANTIFERON NIL (PERFORMABLE) (04/23/2022 7:37 EDT) Blood VENOUS BLOOD / Unknown 04/23/2022 7:37 EDT 04/24/2022 17:16 EDT Provider Outr Resulting Lab IMMUNOLOGY A ND SEROLOGY ORDERABLES Performing Organization Address [facility] Co de Phone Number [facility] [address] [place] [address] documented in this encounter Visit Diagnoses Not on filedocumented in this encounter
--- OUTSIDE RECORDS SUMMARY | 2024-06-09 02:52 | XMS_ITS | Encounter Summary ---
Author Organization [facility] Address [address] [place] [address] Care Team Providers Care Paper Processing Machine Helper Name Role Phone Unavailable Primary Care Provider Unavailabl e Encounter Details Date Type Department Care Team (Late st Contact Info) Description 06/25/2022 Lab Requisition [facility] Pathology & Laboratory Medicine - [facility] [address] [place] [address] Outr Resulting Lab, Provider Social History Tobacco [...] Procedure Name Priority Date/Time Associated Diagnosis Comments HIV 1/2 ANTIGEN AND ANTIBODY, 4TH GENERATION Routine 06/24/2022 16:38 EDT documented in this encounter Results * HIV 1/2 ANTIGEN AND ANTIBODY, 4TH GENERATION (06/24/2022 16:38 EDT) HIV 1 and 2 Antibody/p24 Antigen, 4th Generation Negative Negative 06/26/2022 9:53 EDT [facility] Comment:If acute HIV-1 infec tion is suspected in a high risk patient, submit plasma specimen for HIV-1 RNA quantitation test. Blood VENOUS BLOOD / Unknown 06/24/2022 16:38 EDT 06/25/2022 17:08 EDT Narrative [facility] - 06/26/2022 9:53 EDT Fourth Generation assay performed on the Siemens Beepaur XPT. Provider Outr Resulting Lab IMMUNOLOGY A ND SEROLOGY ORDERABLES [facility] [address] [place] [address] documented in this encounter Visit Diagnoses Not on filedocumented in this encounter
--- OUTSIDE RECORDS SUMMARY | 2024-06-09 02:52 | XMS_ITS | Encounter Summary ---
Author Organization [facility] Address [address] [place] [address] Care Team Providers Care Transportation Broker Name Role Phone Unavailable Primary Care Provider Unavailabl e Encounter Details Date Type Department Care Team (Late st Contact Info) Description 01/16/2023 Lab Requisition [facility] Pathology & Laboratory Medicine - [facility] [address] [place] [address] Outr Resulting Lab, Provider Social History Tobacco [...] Procedure Name Priority Date/Time Associated Diagnosis Comments PTH INTACT Routine 01/15/2023 16:53 EDT documented in this encounter Results * PTH INTACT (01/15/2023 16:53 EDT) Intact PTH 65 19 - 88 pg/mL 01/18/2023 10:17 EDT [facility] Blood VENOUS BLOOD / Unknown 01/15/2023 16:53 EDT 01/16/2023 21:42 EDT Provider Outr Resulting Lab CHEMISTRY & BLOOD GAS ORDERABLES [facility] [address] [place] [address] documented in this encounter Visit Diagnoses Not on filedocumented in this encounter
--- OUTSIDE RECORDS SUMMARY | 2024-06-09 02:52 | XMS_ITS | Clinical Summary ---
Author Organization [facility] Address [address] [place] [address] Care Team Providers Care Casing Builder Name Role Phone Unavailable Primary Care Provider Unavailabl e Social History Tobacco Use Types Packs/Day Years Used Date Smoking Tobacco: Never Assessed Interpersonal Safety Answer Date Record ed Physically Hurt Never 08/14/2020 Verbally Threaten Not on file 08/14/2020 Sex and Gender Information Value Date Recorded Sex Assigned at Not on file Gender Identity Not on file Sexual Orientation Not on file Plan of Treatment Health Maintenance Due Date Last Done Comments RSV Immunization ( o r 60+ Years) (1 - 1-dose 60+ series) 2020 COVID-19 Vaccine (2022-24 season) 2023 Hepatitis C Screen Completed 04/23/2022 Procedures Procedure Name Priority Date/Time Associated Diagnosis Comments HEPATITIS C AB W REFLEX TO HCV RNA BY PCR Routine 04/23/2022 7:37 EDT from Last 3 Months or Most Recently Relevant to Health Maintenance Results * HEPATITIS C AB W REFLEX TO HCV RNA BY PCR (04/23/2022 7:37 EDT) Hep C Antibody Negative Negative 04/24/2022 10:17 EDT [facility] Blood VENOUS BLOOD / Unknown 04/23/2022 7:37 EDT 04/23/2022 17:19 EDT Provider Outr Resulting Lab CHEMISTRY & BLOOD GAS ORDERABLES [facility] [address] [place] [address] from Last 3 Months or Most Recently Relevant to Health Maintenance
--- OUTSIDE RECORDS SUMMARY | 2024-06-09 02:52 | XMS_ITS | Referral Summary ---
Author Organization [facility] Address [address] [place] [address] Care Team Providers Care Dump Attendant Name Role Phone Unavailable Primary Care Provider [...] Orientation Not on file Plan of Treatment Not on file Procedures Procedure Name Priority Date/Time Associated Diagnosis Comments HEPATITIS C AB W REFLEX TO HCV RNA BY PCR Routine 04/23/2022 7:37 EDT from Last 3 Months or Most Recently Relevant to Health Maintenance Results * HEPATITIS C AB W REFLEX TO HCV RNA BY PCR (04/23/2022 7:37 EDT) Hep C Antibody Negative Negative 04/24/2022 10:17 EDT [facility] Blood VENOUS BLOOD / Unknown 04/23/2022 7:37 EDT 04/23/2022 17:19 EDT Provider Outr Resulting Lab CHEMISTRY & BLOOD GAS ORDERABLES [facility] [address] [place] [address] from Last 3 Months or Most Recently Relevant to Health Maintenance
--- OUTSIDE RECORDS SUMMARY | 2024-06-09 02:53 | XMS_ITS | Clinical Summary ---
Author Organization [facility] Address [facility] [place] [address] Care Team Providers Care [employer] Group Leader Name Role Phone Andi Thomas MD Primary Care Provider [phone] Allergies Active Allergy Reactions Criticality Noted Date Comments Amlodipine Other (See Comments) 02/14/2019 CHEST DISCOMFORT Pseudoephedrine Hcl Other (See Comments) 2013 Heart races Medications Medication Sig Dispensed Refills Start Date End Date Status ibuprofen (Advil) 200 mg tablet Take 200 mg by mouth every 6 hours as needed for Pain. Active cholecalciferol, Vitamin D3, 25 mcg (1,000 unit) Capsule Take 1 capsule by mouth daily. 90 capsule 3 01/23/2023 Active aspirin EC 81 mg EC (DR) tabletIndications: Atypical chest pain Take 1 tablet by mouth daily. 90 tablet 5 07/03/2023 Active oxyCODONE (Roxicodone) 5 mg tablet Take 1 tablet by mouth every 6 hours as needed for Pain. 10 tablet 11/26/2023 Active Additional Information Patient not taking.Reported on 01/24/2024 atorvastatin (Lipitor) 20 mg tablet Take 1 tablet by mouth daily. 90 tablet 3 01/31/2024 Active lisinopriL (Zestril) 10 mg tablet Take 1 tablet by mouth daily. 90 tablet 3 06/05/2024 Active Active Problems Problem Noted Date Diagnosed Date Stage 3a chronic kidney disease (CKD) 01/23/2023 HTN (hypertension) 11/14/2021 Lung nodule, solitary 08/12/2019 Overview (08/12/2019): RLL, seen incidentally on CT chest 11/2018. 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 Etiology unclear, with no evidence of embolic source or vasculitis and no other significant arterial stenosis on MRA head/neck/chest/abdomen. Nevus 10/31/2013 Family history of malignant melanoma 10/31/2013 Resolved Problems Problem Noted Date Diagnosed Date Resolved Date Flank pain 11/27/2018 08/12/2019 Encounters Date Type Department Care Team Description 06/02/2024 [place] [address] Andi Thomas MD 04/27/2024 Refill Cardiology at [address] [address] Owen Correia MD Medication Refill 04/27/2024 Telephone [place] [address] Anitra Sherman from Last 3 Months Immunizations Name Administration Dates Next Due Influenza (FluBlok) Trivalent, Preservative Free 07/01/2022 Influenza Quadrivalent, Preservative Free 2018 Tdap 02/22/2020 Zoster (ShingRix), Recombinant 02/22/2020,2019 Family History Medical History Relation Comments Myocardial Infarction Father Relation Status Comments Father Social History Tobacco Use Types Packs/Day Years Used Date Smoking Tobacco: Never Smokeless Tobacco: Never Alcohol Use Standard Drinks/Week Comments Yes 7 (1 standard drink = 0.6 oz pur e alcohol) Overall Financial Resource Strain (CARDIA) Answe r Date Recorded How hard is it for you to pa y for the very basics like food, housing, medical care, and heating? Not very hard 04/11/2022 Exercise Vital Sign Answer Date Recorde d On average, how many days pe r week do you engage in moderate to strenuous exercise (like a brisk walk)? 4 days 04/11/2022 On average, how many minutes do you engage in exercise at this level? 40 min 04/11/2022 Hunger Vital Sign Answer Date Recorded Within the past 12 months, y ou worried that your food would run out before you got the money to buy more. Never true 04/11/20 22 Within the past 12 months, t he food you bought just didn't last and you didn't have money to get more. Never true 04/11/2022 PRAPARE - Transportation Answer Date Re corded In the past 12 months, has l ack of transportation kept you from medical appointments or from getting medications? No 02/2022 In the past 12 months, has l ack of transportation kept you from meetings, work, or from getting things needed for daily living? No 04/11/2022 Housing Stability Vital Sign Answer David e Recorded In the last 12 months, was t here a time when you were not able to pay the mortgage or rent on time? No 04/11/2022 In the last 12 months, how many places have you lived? 1 04/11/2022 In the last 12 months, was t here a time when you did not have a steady place to sleep or slept in a fpc (including now)? No 04/11/2022 DH IPV Inpatient Questions Answer Date Recorded Does Anyone Try to Keep You From Having Contact with Others or Doing Things Outside Your Home? no 11/26/2023 Feels Threatened by Someone no 11/05 Feels Unsafe at Home or Work/School no 11/26/2023 Physical Signs of Abuse Present no 11/26/2023 Sex and Gender Information Value Date Recorded Sex Assigned at Not on file Gender Identity Not on file Sexual Orientation Not on file Last Filed Vital Signs Vital Sign Reading Time Taken Comments Blood Pressure 125/79 01/24/2024 4:04 PM EDT Pulse 56 01/24/2024 4:04 PM EDT Temperature 36 ??C (96.8 ??F) 11/26/2023 1:55 PM EDT Respiratory Rate 16 11/26/2023 2:30 PM EDT Oxygen Saturation 100% 01/24/2024 4:04 PM EDT Inhaled Oxygen Concentration - - Weight 61.7 kg (136 lb) 01/24/2024 4:04 PM EDT Height 170.2 cm (5' 7) 01/24/2024 4:04 PM EDT Body Mass Index 21.3 01/24/2024 4:04 PM EDT Plan of Treatment Upcoming Encounters Date Type Department Care Team (Late st Contact Info) Description 06/16/2024 4:00 PM EDT Office Visit [place]ph[place] [phone] Betzaida Cope, [facility] [place] [address] 06/23/2024 2:00 PM EDT Appointment [place] [address] Owen Correia MD [facility] [place], [place] [id number] Health Maintenance Due Date Last Done Comments CT Colonography 1960 FIT DNA 1960 FIT 1960 Sigmoidoscopy 1960 Covid-19 Vaccine (1 - season) 2024 Influenza (Flu) vaccine (1 o f 1 - Influenza standard series) 05/07/2024 07/01/2022, 08/11/2019 Tetanus/Diphtheria/Pertussis Vaccines (2 - Td or Tdap) 02/21/2030 02/22/2020 Colonoscopy 03/05/2030 03/05/2020, 03/05/2020 Colorectal Cancer Screening 03/05/2030 Sigmoidoscopy (10 year) with FIT yearly 03/05/2030 0 03/05/2020, 03/05/2020 Hepatitis C Screening Completed 11/28/2018, 019 Zoster vaccine Completed 02/22/2020, 10/31/2019 HIV screen Completed 12/08/2023 Lipid Screening Discontinued 12/08/2023, 11/27/2018 Procedures Procedure Name Priority Date/Time Associated Diagnosis Comments HIV SCREEN, 4TH GENERATION ([facility]/CGP/APD/NLH) Routine 12/08/2023 1:56 PM EDT Healthcare maintenance LIPID PANEL (REFLEX DIRECT LDL) Routine 12/08/2023 1:56 PM EDT Healthcare maintenance COLONOSCOPY Routine 03/05/2020 1:38 PM EDT HEPATITIS C ANTIBODY Routine 11/28/2018 6:56 AM EDT from Last 3 Months or Most Recently Relevant to Health Maintenance Results * HIV Screen, 4th Generation ([facility]/CGP/APD/NLH) (12/08/2023 1:56 PM EDT) [facility] HIV Ab/Ag Screen Negative Negative [facility] Comment: This 4th Generation HIV test screens for the presence of the HIV-1 p24 antigen as well as antibodies reactive against HIV-1 and HIV-2. A negative screen does not rule out an acute HIV infection. If acute HIV infection is suspected, testing should be repeated in 2 - 3 weeks or HIV nucleic acid testing performed. HIV Comment Low Risk of HIV Infection [facility] Blood 12/08/2023 1:56 PM EDT 12/08/2023 2:02 PM EDT Narrative Resulting Agency Comment Spec In Lab Zahraa Hansen MD CHEMISTRY ORDERABLES [facility] [place] [address] * Lipid Panel (Reflex Direct LDL) (12/08/2023 1:56 PM EDT) Pathologist [facility] Cholesterol, Total 202 mg/dL [facility] Comment: Desirable: ? <200 mg/dL Borderline High: 200-239 mg/dL Higher: ?>nc=239 mg/dL Triglyceride 90 mg/dL [facility] Comment: Normal: ?<150 mg/dL Borderline High: 150-199 mg/dL High: ?200-499 mg/dL Very High: ? >bi=257 mg/dL HDL Cholesterol 52 mg/dL [facility] Comment: Females: High Risk: <50 mg/dL Males: High Risk: <40 mg/dL LDL Cholesterol 132 mg/dL [facility] Comment: Desirable: ? <100 mg/dL Above Desirable: 100-129 mg/dL Borderline High: 130-159 mg/dL High: ?160-189 mg/dL Very High: ? >xq=959 mg/dL Lipid Interpretation See Note [facility] Comment: It is important to review the results of your lipid panel with your health care provider. You can compare your lipid results to the ranges below and whether they are in the desirable range. These ranges are only meant to be used for people without known cardiac disease, history of stroke, or peripheral vascular disease (blockages in the leg arteries or diabetes). If ??you have one of these conditions, your desirable LDL-C (bad cholesterol) will likely be even lower. ACC/AHA Guidelines (most recently Toma et al. [facility] 06/09/22): For individuals with atherosclerotic cardiovascular disease (ASCVD)or LDL >tw=329 mg/dL, use a high-intensity statin (40-80 mg atorvastatin or 20-40 mg rosuvastatin with goal >or=50% LDL reduction) For individuals with diabetes, age 40-75 without ASCVD, moderate-intensity statin (goal 30-49% LDL reduction); consider high intensity statin for those with increased risk. For adults without diabetes or ASCVD, aged 40-75 with LDL 70-189 mg/dL, estimate 10 year ASCVD risk with smartphrase .ASCVDRISK or Dynamed Decisions. If 10 year risk is 7.5%-19.9% (intermediate risk), consider moderate intensity statin based on risk enhancers and patient preference. Consider coronary artery calcium test (CT) if there is concern regarding the benefit of a statin. If ten year risk is >or=20%, initiate high-intensity statin. Evaluate for secondary causes of triglycerides >500 mg/dL or LDL >190 mg/dL. Lifestyle modification is a critical component of ASCVD risk reduction. If not reaching LDL goals on maximally tolerated statin, consider ezetimibe and/or a PCSK9 inhibitor: Target for primary prevention: LDL<100 Target for those with ASCVD or diabetes and 10-year risk >or=20%: LDL<70 Target for those with very high risk ASCVD: LDL<55 (Very high risk being the presence of 2 or more of: recent acute coronary syndrome, past myocardial infarction, ischemic stroke, symptomatic peripheral artery disease) Blood 12/08/2023 1:56 PM EDT 12/08/2023 2:02 PM EDT Narrative Resulting Agency Comment Spec In Lab Zahraa Hansen MD CHEMISTRY ORDERABLES [facility] [place] [address] * COLONOSCOPY (03/05/2020 1:38 PM EDT) COLONOSCOPY [facility] Endoscopy Procedure Date: 03/05/2020 1:38 PM ? Patient Name: Moshe Castillo ? N: [id number] ? Date of : 1960 ? Age: 59 ? Order #: [id number] ? Instrument Name: [id number] ? Procedure: ? Colonoscopy Indications: ? Screening for colorectal malignant ? neoplasm Providers: ? Damion Mike MD, Arley Valdivia ? Moshe Coffey Autumn ? Zackery Reyes MD: ?Luther Garrison Medicines: ? Midazolam 4 mg IV, Fentanyl 200 ? micrograms IV Complications: ? No immediate complications. Procedure: ? Pre-Anesthesia Assessment: ? - Prior to the procedure, a History ? and Physical was performed, and ? patient medications and allergies ? were reviewed. The patient is ? competent. The risks and benefits of ? the procedure and the sedation ? options and risks were discussed with ? the patient. All questions were ? answered and informed consent was ? obtained. Patient identification and ? proposed procedure were verified by ? the physician in the pre-procedure ? area in the endoscopy suite. Mental ? Status Examination: alert and ? oriented. Airway Examination: normal ? oropharyngeal airway and neck ? mobility. Respiratory Examination: ? clear to auscultation. CV ? Examination: normal. ASA Grade ? Assessment: II - A patient with mild ? systemic disease. After reviewing the ? risks and benefits, the patient was ? deemed in satisfactory condition to ? undergo the procedure. The anesthesia ? plan was to use moderate sedation / ? analgesia (conscious sedation). ? Immediately prior to administration ? of medications, the patient was ? re-assessed for adequacy to receive ? sedatives. The heart rate, ? respiratory rate, oxygen saturations, ? blood pressure, adequacy of pulmonary ? ventilation, and response to care ? were monitored throughout the ? procedure. The physical status of the ? patient was re-assessed after the ? procedure. ? The procedure, indications, benefits, ? risks and alternatives were explained ? to the patient. Specifically ? discussed were potential ? complications including, but not ? limited to, bleeding, perforation, ? infection, missing a cancer, and ? adverse medication reactions. The ? patient was placed in the left ? lateral decubitus position, and a ? digital rectal exam was performed. ? The Colonoscope was inserted in the ? anus and under direct visualization, ? advanced to the terminal ileum, with ? identification of the appendiceal ? orifice and IC valve. Careful ? inspection was made as the ? colonoscope was withdrawn. The ? colonoscopy was performed without ? difficulty. The patient tolerated the ? procedure well. The quality of the ? bowel preparation was evaluated using ? the BBPS ([place] Bowel Preparation ? Scale) with scores of: Right Colon = ? 3 (entire mucosa seen well with no ? residual staining, small fragments of ? stool or opaque liquid), Transverse ? Colon = 3 (entire mucosa seen well ? with no residual staining, small ? fragments of stool or opaque liquid) ? and Left Colon = 3 (entire mucosa ? seen well with no residual staining, ? small fragments of stool or opaque ? liquid). The total BBPS score equals ? 9. The quality of the bowel ? preparation was excellent. Scope ? withdrawal time was 12 minutes. ? Findings: ? Skin tags were found on perianal exam. ? The exam was otherwise normal throughout the examined ? colon. ? The terminal ileum appeared normal. ? Moderate Sedation: ? I was present during the intraservice time as ? documented by the sedation RN. Impression: ?- Perianal skin tags found on ? perianal exam. ? - The examined portion of the ileum ? was normal. ? - No specimens collected. Recommendation: ?- Repeat colonoscopy in 10 years for ? screening purposes. ? Attending Participation: ? I personally performed the entire procedure. ? __ L. Willam Mike MD 03/05/2020 2:27:02 PM Number of Addenda: 0 Note Initiated On: 03/05/2020 1:38 PM PROVATION 03/05/2020 1:38 PM EDT Luther Garrison DO GENERAL SURGICAL ORD ERABLES [employer]ATION * Hepatitis C Antibody (11/28/2018 6:56 AM EDT) Hepatitis C Antibody Negative Negative [facility] Blood specimen (specimen) 11/28/2018 6:56 AM EDT 11/28/2018 7:11 AM EDT Narrative Resulting Agency Comment Spec In Lab Parth Frias MD CHEMISTRY ORDERABLES [facility] [place] [address] from Last 3 Months or Most Recently Relevant to Health Maintenance Advance Directives Documents on File Type Date Recorded Patient Portainer Operator Expl anation Advance Directives and Living Will 09/01/2019 12:57 PM 09/01/2019 Personal Portainer Operator 08/11/2019 8:13 AM gardenia castillo * Full Code (Latest Code Status on File) Date Activated Date Inactivated Comments 12/18/2018 10:01 PM 12/19/2018 1:55 PM Question Answer Comments Does patient have capacity to make decision: Yes * Full Code Date Activated Date Inactivated Comments 11/27/2018 4:48 AM 12/01/2018 5:11 PM Question Answer Comments Does patient have capacity to make decision: Yes Care Teams [employer] Group Leader Relationship Specialty Start Date End Date Andi Thomas MD [facility] [place] [address] PCP - General General Internal Medicine 03/01/22
--- OUTSIDE RECORDS SUMMARY | 2024-06-09 02:53 | XMS_ITS | Encounter Summary ---
Author Organization [facility] Address [address] [place] [address] Care Team Providers Care Dairy Helper Name Role Phone Unavailable Primary Care Provider Unavailabl e Encounter Details Date Type Department Care Team (Late st Contact Info) Description 08/12/2020 Lab Requisition [facility] Pathology & Laboratory Medicine - [facility] [address] [place] [address] Outr Resulting Lab, Provider Social History Tobacco [...] Procedure Name Priority Date/Time Associated Diagnosis Comments DO NOT ORDER STANDALONE - [facility] COVID TEST Today 08/12/2020 10:20 EST COVID-19 TESTING Routine 08/12/2020 10:2 0 EST documented in this encounter Results * DO NOT ORDER STANDALONE - [facility] COVID TEST (08/12/2020 10:20 EST) COVID-19 rt-PCR Result NEGATIVE Negative 08/14/2020 9:36 EST [facility] Comment: 2019-novel Coronavirus (2019-nCoV) not detected by the qRT-PCR assay. Consider testing for other respiratory viruses or re-collecting for 2019-nCoV testing. Note: Optimum timing for peak viral levels during infections caused by 2019-nCoV have not been determined. Collection of multiple specimens from the same patient may be necessary to detect the virus. Limitations Positive results are indicative of active infection with SARS-CoV-2 but do not rule out bacterial infection or co-infection with other viruses. The agent detected may not be the definite cause of disease. In addition, detection of viral RNA may not indicate the presence of infectious virus or that SARS-CoV-2 is the causative agent for clinical symptoms. Negative results do not preclude SARS-CoV-2 infection and should not be used as the sole basis for patient management decisions. Negative results must be combined with clinical observations, patient history, and epidemiological information. False negative results may also occur if amplification inhibitors are present in the specimen or if inadequate numbers of organisms are present in the specimen. Optimum specimen types and timing for peak viral levels during infections caused by SARS-CoV-2 have not been fully determined. Collection of multiple specimens (types and time points) from the same patient may be necessary to detect the virus. The test was validated for use with upper respiratory specimens obtained via nasopharyngeal or oropharyngeal swabs in VTM, UTM, M4, M5, M6, saline, and MTM media. The performance of this test has not been established for other specimens. Specimens collected using other FDA recommended Specimen Collection Materials listed in the FDA COVID-19 [employer] communication (November 30, 2019) are processed with the caveat that they were not all validated for use with this test and the result must be interpreted in this context. Furthermore, a false negative results may occur if a specimen is improperly collected, transported or handled. If the virus mutates in the RT-PCR target region, SARS-CoV-2 may not be detected or may be detected less predictably. Inhibitors or other types of interference may produce a false negative result. An interference study evaluating the effect of common cold medications was not performed. This test is not FDA-cleared but its performance characteristics were established by our CLIA-certified, CAP-accredited, high complexity laboratory in accordance with CLIA regulations, [employer] [place] [employer] (CAP) guidelines (Nov 23, 2019), and FDA guidance (Nov 04, 2019). This test is only for use under the Food and Drug Administration's Emergency Use Authorization. Swab ENTIRE NASOPHARYNX / Unknown 08/12/2020 10:20 EST 08/12/2020 21:11 EST Provider Outr Resulting Lab MICROBIOLOGY - GENERAL ORDERABLES [place] * COVID-19 TESTING (08/12/2020 10:20 EST) [facility] COVID-19 rt-PCR Result NEGATIVE Negative 08/14/2020 9:36 EST [facility] Comment: 2019-novel Coronavirus (2019-nCoV) not detected by the qRT-PCR assay. Consider testing for other respiratory viruses or re-collecting for 2019-nCoV testing. Note: Optimum timing for peak viral levels during infections caused by 2019-nCoV have not been determined. Collection of multiple specimens from the same patient may be necessary to detect the virus. Limitations Positive results are indicative of active infection with SARS-CoV-2 but do not rule out bacterial infection or co-infection with other viruses. The agent detected may not be the definite cause of disease. In addition, detection of viral RNA may not indicate the presence of infectious virus or that SARS-CoV-2 is the causative agent for clinical symptoms. Negative results do not preclude SARS-CoV-2 infection and should not be used as the sole basis for patient management decisions. Negative results must be combined with clinical observations, patient history, and epidemiological information. False negative results may also occur if amplification inhibitors are present in the specimen or if inadequate numbers of organisms are present in the specimen. Optimum specimen types and timing for peak viral levels during infections caused by SARS-CoV-2 have not been fully determined. Collection of multiple specimens (types and time points) from the same patient may be necessary to detect the virus. The test was validated for use with upper respiratory specimens obtained via nasopharyngeal or oropharyngeal swabs in VTM, UTM, M4, M5, M6, saline, and MTM media. The performance of this test has not been established for other specimens. Specimens collected using other FDA recommended Specimen Collection Materials listed in the FDA COVID-19 [employer] communication (November 30, 2019) are processed with the caveat that they were not all validated for use with this test and the result must be interpreted in this context. Furthermore, a false negative results may occur if a specimen is improperly collected, transported or handled. If the virus mutates in the RT-PCR target region, SARS-CoV-2 may not be detected or may be detected less predictably. Inhibitors or other types of interference may produce a false negative result. An interference study evaluating the effect of common cold medications was not performed. This test is not FDA-cleared but its performance characteristics were established by our CLIA-certified, CAP-accredited, high complexity laboratory in accordance with CLIA regulations, [employer] [place] [employer] (CAP) guidelines (Nov 23, 2019), and FDA guidance (Nov 04, 2019). This test is only for use under the Food and Drug Administration's Emergency Use Authorization. Performing Lab [facility] [place] 08/14/2020 9:36 EST [facility] Swab 08/12/2020 10:2 0 EST 08/12/2020 21:11 EST Provider Outr Resulting Lab MICROBIOLOGY - GENERAL ORDERABLES [facility] [address] [place] [address] [facility] [place] documented in this encounter Visit Diagnoses Not on filedocumented in this encounter
--- OUTSIDE RECORDS SUMMARY | 2024-06-09 02:53 | XMS_ITS | Encounter Summary ---
Author Organization [facility] Address [address] [place] [address] Care Team Providers Care Warp Knitter Helper Name Role Phone Unavailable Primary Care Provider Unavailabl e Encounter Details Date Type Department Care Team (Late st Contact Info) Description 04/23/2022 Lab Requisition [facility] Pathology & Laboratory Medicine - [address] [address] Outr Resulting Lab, Provider Social History Tobacco [...] RNA BY PCR Routine 04/23/2022 7:37 EDT HEPATITIS B SURFACE ANTIGEN Routine 04/23/2022 7:37 EDT documented in this encounter Results * HEPATITIS B SURFACE ANTIGEN (04/23/2022 7:37 EDT) Hep B Surface Ag Negative Negative 04/24/2022 9:23 EDT [facility] Blood VENOUS BLOOD / Unknown 04/23/2022 7:37 EDT 04/23/2022 17:19 EDT Provider Outr Resulting Lab CHEMISTRY & BLOOD GAS ORDERABLES [facility] [address] [place] [address] * HEPATITIS C AB W REFLEX TO HCV RNA BY PCR (04/23/2022 7:37 EDT) Hep C Antibody Negative Negative 04/24/2022 10:17 EDT [facility] Blood VENOUS BLOOD / Unknown 04/23/2022 7:37 EDT 04/23/2022 17:19 EDT Provider Outr Resulting Lab CHEMISTRY & BLOOD GAS ORDERABLES [facility] [address] [place] [address] documented in this encounter Visit Diagnoses Not on filedocumented in this encounter
--- OUTSIDE RECORDS SUMMARY | 2024-06-09 02:53 | XMS_ITS | Encounter Summary ---
[place] [address] Care Team Providers Care Ebay Reseller Name Role Phone Andi Thomas MD Primary Care Provider [phone] Encounter Details Date Type Department Care Team (Latest Contact Info) Description 12/08/2023 1:50 PM EDT Laboratory Appointment Lab [address] [place] [phone] Healthcare maintenance Social History Tobacco Use Types Packs/Day Years [...] place to sleep or slept in a correction (including now)? No 04/11/2022 IPV Inpatient Questions Answer Date Recorded Does [...] on file documented as of this encounter Progress Notes * Andi Thomas MD - 12/08/2023 1:50 PM EDT Hi, We have received the lab results. The HIV screen was negative. The current levels of cholesterol will place the risk of strokes/heart attacks or other atherosclerotic cardiovascular risks in the next10 years to be 9.8%. At this point we recommend starting a medication call atorvastatin to help lower this risk. We can discuss further on risks and benefit with you in an appointment. Sincerely, Andi Thomas MD documented in this encounter Plan of Treatment Upcoming Encounters Date Type Department Care Team (Late st Contact Info) Description 06/16/2024 4:00 PM EDT Office Visit Ne[place] [address] Betzaida Cope APRN [facility] [place] [address] 06/23/2024 2:00 PM EDT Appointment [place] [address] Owen Correia MD [facility] [place] [address] documented as of this encounter Procedures Procedure Name Priority Date/Time Associated Diagnosis Comments HIV SCREEN, 4TH GENERATION ([facility]/CGP/APD/NLH) Routine 12/08/2023 1:56 PM EDT Healthcare maintenance LIPID PANEL (REFLEX DIRECT LDL) Routine 12/08/2023 1:56 PM EDT Healthcare maintenance documented in this encounter Results * HIV Screen, 4th Generation ([facility]/CGP/APD/NLH) (12/08/2023 1:56 PM EDT) Pathologist [facility] HIV Ab/Ag Screen Negative Negative [facility] Comment: This 4th Generation HIV test [...] HIV Comment Low Risk of HIV Infection [facility] Blood 12/08/2023 1:56 PM EDT 12/08/2023 2:02 PM EDT Narrative Resulting Agency Comment Spec In Lab Zahraa Hansen MD CHEMISTRY ORDERABLES [facility] [place] [address] * Lipid Panel (Reflex Direct LDL) (12/08/2023 1:56 PM EDT) Pathologist [facility] Cholesterol, Total 202 mg/dL [facility] Comment: Desirable: ? <200 mg/dL Borderline High: 200-239 mg/dL Higher: ?>hj=784 mg/dL Triglyceride 90 mg/dL [facility] Comment: Normal: ?<150 mg/dL Borderline High: 150-199 mg/dL High: ?200-499 mg/dL Very High: ? >xl=446 mg/dL HDL Cholesterol 52 mg/dL [facility] Comment: Females: High Risk: <50 mg/dL Males: High Risk: <40 mg/dL LDL Cholesterol 132 mg/dL [facility] Comment: Desirable: ? <100 mg/dL Above Desirable: 100-129 mg/dL Borderline High: 130-159 mg/dL High: ?160-189 mg/dL Very High: ? >rf=367 mg/dL Lipid Interpretation See Note [facility] Comment: It is important to review [...] ACC/AHA Guidelines (most recently Toma et al. [facility] 06/09/22): For individuals with atherosclerotic cardiovascular disease (ASCVD)or LDL >qf=905 mg/dL, use a high-intensity statin (40-80 mg [...] In Lab Zahraa Hansen MD CHEMISTRY ORDERABLES [facility] [place] [address] documented in this encounter Visit Diagnoses Diagnosis Healthcare maintenance Routine general medical examination at a health care facility documented in this encounter Care Teams Ebay Reseller Relationship Specialty Start Date End Date Andi Thomas MD [facility] GENERAL [place] [address] PCP - General General Internal Medicine 03/01/22 documented as of this encounter
--- OUTSIDE RECORDS SUMMARY | 2024-06-09 02:53 | XMS_ITS | Encounter Summary ---
Author Organization [facility] Address [facility] [place] [address] Care Team Providers Care Bag Shaker Name Role Phone Andi Thomas MD Primary Care Provider [phone] Reason for Visit * Reason Onset Date Comments Medication Refill 06/02/2024 Encounter Details Date Type Department Care Team (Late st Contact Info) Description 06/02/2024 [place] [address] Andi Thomas MD [facility] [place] [address] Social History Tobacco Use Types Packs/Day Years [...] money to buy more. Never true 04/11/20 Within the past 12 months, t he [...] place to sleep or slept in a assisted (including now)? No 04/11/2022 DH IPV Inpatient [...] on file documented as of this encounter Miscellaneous Notes * Telephone Encounter - Arline Benoit CCMA - 06/05/2024 8:24 AM EDT Prescription Renewal Request Name: Moshe Castillo : 1960 Prescription(s) Requested: Requested Prescriptions Pending Prescriptions Disp Refills lisinopriL (Zestril) 10 mg tablet 90 tablet 3 Sig: Take 1 tablet by mouth daily. Date of Encounter last in This Dept (If need an appointment send to secretaries to schedule): 09/15/23 Next Encounter in This Dept: Visit date not found Date of Last Refill (for each medication): 05/25/23 90x3 Medication category requirements (labs etc): Lab Results Component Value Date NA 139 11/24/2023 K 4.3 11/24/2023 CL 103 11/24/2023 CO2 26 11/24/2023 BUN 16 11/24/2023 CREATININE 1.37 11/24/2023 GLUCOSE 91 11/24/2023 GLUCFASTING 111 (H) 12/01/2018 CALCIUM 9.5 11/24/2023 ESTGFR 58 (L) 11/24/2023 Status of request: Pended Allergies Allergen Reactions Amlodipine Other (See Comments) CHEST DISCOMFORT Pseudafen [Pseudoephedrine Hcl] Other (See Comments) Heart races TITI Garza 06/05/24 8:24 AM documented in this encounter Plan of Treatment Upcoming Encounters Date Type Department Care Team (Late st Contact Info) Description 06/16/2024 4:00 PM EDT Office Visit Nephrology Hypertension at [place] [phone] Betzaida Cope, [facility] [place] [address] 06/23/2024 2:00 PM EDT Appointment Non-Invasive [place] [address] Owen Correia MD [facility] [place] [address] documented as of this encounter Visit Diagnoses Not on filedocumented in this encounter Care Teams Bag Shaker Relationship Specialty Start Date End Date Andi Thomas MD [facility] [place] [address] PCP - General General Internal Medicine 03/01/22 documented as of this encounter
--- OUTSIDE RECORDS SUMMARY | 2024-06-09 02:53 | XMS_ITS | Encounter Summary ---
[place] [address] Care Team Providers Care Intermodal Owner Operator Truck Driver Name Role Phone nAdi Thomas MD Primary Care Provider [phone] Reason for Referral * Diagnostic Test (Routine) - Closed Specialty Diagnoses / Procedures Referred By Contac t Referred To Contact Radiology Diagnoses Chronic pain of left knee Procedures MRI Knee wo Contrast Left (Generic) Dwayne Galicia MD [facility] [place] [address] [place] [address] Referral ID Status Reason Start Date Expiration Date V isits Requested Visits Authorized [id number] Closed Specialty Service Requested 09/15/2023 03/15/2025 1 1 Reason for Visit * Diagnostic Test (Routine) - Closed Specialty Diagnoses / Procedures Referred By Contac t Referred To Contact Radiology Diagnoses Chronic pain of left knee Procedures MRI Knee wo Contrast Left (Generic) Dwayne Galicia MD [facility] [place] [address] [place] [address] Referral ID Status Reason Start Date Expiration Date V isits Requested Visits Authorized [id number] Closed Specialty Service Requested 09/15/2023 03/15/2025 1 1 Encounter Details Date Type Department Care Team (Latest Contact Info) Description 10/13/2023 11:47 AM EST - 10/13/2023 11:59 PM EST Hospital Encounter MRI at [facility] [place] [address] Sotero Gr MD [facility] [place] [address] Chronic pain of left knee Discharge Disposition: Home Social History Tobacco Use Types Packs/Day Years [...] place to sleep or slept in a [place] health care facility (including now)? No 04/11/2022 Sex and Gender Information Value Date Recorded Sex Assigned at Not on file Gender Identity Not on file Sexual Orientation Not on file documented as of this encounter Medications at Time of Discharge Medication Sig Dispensed Refills Start Date End Date aspirin EC 81 mg EC () tabletIndications:Atypi dave chest pain Take 1 tablet by mouth daily. 90 tablet 5 07/03/2023 cholecalciferol, Vitamin D3, 25 mcg (1,000 unit) Capsule Take 1 capsule by mouth daily. 90 capsule 3 01/23/2023 ibuprofen (Advil) 200 mg tablet Take 200 mg by mouth every 6 hours as needed for Pain. lisinopriL (Zestril) 10 mg tablet TAKE 1 TABLET BY MOUTH DAILY 90 tablet 3 05/25/2023 06/02/2024 documented as of this encounter Plan of Treatment Upcoming Encounters Date Type Department Care Team (Late st Contact Info) Description 06/16/2024 4:00 PM EDT Office Visit [place] [phone] Betzaida Cope APRN [facility] [place] [address] 06/23/2024 2:00 PM EDT Appointment Non-[place] [phone] Owen Correia MD [facility] [place] [address] documented as of this encounter Procedures Procedure Name Priority Date/Time Associated Diagnosis Comments MRI KNEE LEFT WO CONTRAST Routine 10/13/2023 1:01 PM EST Chronic pain of left knee documented in this encounter Results * MRI Knee wo Contrast Left (Generic) (10/13/2023 1:01 PM EST) Anatomical Region Laterality Modality Knee Left Magnetic Resonan ce Impressions 10/13/2023 5:33 PM EST 1. ??Large complex tear of the medial meniscus extending from body into the entirety of the posterior horn. ??The posterior root is intact 2. ??Well-corticated ossification in the superolateral patellar pole with adjacent quadriceps tendinosis. ??This could represent a bipartite patella, or old injury to the patella, or the quadriceps tendon. ??No marrow edema of the ossification. 3. 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 I have personally reviewed the image(s) and the resident's interpretation and agree with the findings, Vasuqez Santos MD at 10/13/2023 5:33 PM Thank you for letting us participate in the care of this patient. ??If you are a health care provider and have any questions regarding this report, please contact the number below. ??For patients who have questions please contact the health day care worker that requested your imaging first. ? Electronically signed by: Vasquez Santos MD, [facility] ([phone]), at 10/13/2023 5:33 PM Narrative 10/13/2023 5:33 PM EST EXAMINATION: MRI KNEE WO CONTRAST LEFT (GENERIC) CLINICAL HISTORY: L knee c/f meniscal injury M25.562, Pain in left knee - G89.29, Other chronic pain TECHNIQUE: Noncontrast MRI of the left knee was performed using axial T1, T2 FS; coronal PD, PD FS; sagittal PD and PD FS sequences. COMPARISON: Left knee radiograph 09/10/2023 FINDINGS: Limitation: Study is degraded by motion artifact ACL: Intact PCL: Intact MCL: Intact LCL: Intact. Medial Meniscus: A large complex tear of the medial meniscus extending from the meniscal body into the entirety of the posterior horn. ??The posterior root is intact Lateral Meniscus: Intact Extensor Mechanism: Quadriceps insertional tendinosis with an adjacent the well-corticated ossific body measuring. Normal patellar tendon. Normal bilateral retinacula. Posterolateral Corner: Intact Posteromedial Corner: Intact. No Stacy cyst. Bone: Well-corticated 1.6 cm ossification immediately adjacent to the superior patellar pole, correlating with radiographic findings. ??No acute fracture.No marrow edema Cartilage: Patellofemoral: Diffuse low-grade chondral thinning, and surface fraying. ??No focal full-thickness chondral defect Medial: Diffuse chondral thinning along the weightbearing aspect of the femoral condyle and tibial plateau Lateral: Intact Tibiofibular: Intact Effusion: No joint effusion or edema of Hoffa fat pad. Muscle: Normal bulk and signal. Neurovascular Structures: Normal course, caliber and signal. Procedure Note Vasquez Santos MD - 10/13/2023 EXAMINATION: MRI KNEE WO CONTRAST LEFT (GENERIC) CLINICAL HISTORY: L knee c/f meniscal injury M25.562, Pain in left knee - G89.29, Other chronic pain TECHNIQUE: Noncontrast MRI of the left knee was performed using axial T1,T2 FS; coronal PD, PD FS; sagittal PD and PD FS sequences. COMPARISON: Left knee radiograph 09/10/2023 FINDINGS: Limitation: Study is degraded by motion artifact ACL: Intact PCL: Intact MCL: Intact LCL: Intact. Medial Meniscus: A large complex tear of the medial meniscus extendingfrom the meniscal body into the entirety of the posterior horn. The posterior rootis intact Lateral Meniscus: Intact Extensor Mechanism: Quadriceps insertional tendinosis with an adjacentthe well-corticated ossific body measuring. Normal patellar tendon. Normalbilateral retinacula. Posterolateral Corner: Intact Posteromedial Corner: Intact. No Stacy cyst. Bone: Well-corticated 1.6 cm ossification immediately adjacent to thesuperior patellar pole, correlating with radiographic findings. No acutefracture.No marrow edema Cartilage: Patellofemoral: Diffuse low-grade chondral thinning, and surface fraying.No focal full-thickness chondral defect Medial: Diffuse chondral thinning along the weightbearing aspect of thefemoral condyle and tibial plateau Lateral: Intact Tibiofibular: Intact Effusion: No joint effusion or edema of Hoffa fat pad. Muscle: Normal bulk and signal. Neurovascular Structures: Normal course, caliber and signal. IMPRESSION 1. Large complex tear of the medial meniscus extending from body intothe entirety of the posterior horn. The posterior root is intact 2. Well-corticated ossification in the superolateral patellar pole with adjacent quadriceps tendinosis. This could represent a bipartite patella,or old injury to the patella, or the quadriceps tendon. No marrow edema ofthe ossification. 3. 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 I have personally reviewed the image(s) and the resident's interpretationand agree with the findings, Vasquez Santos MD at 10/13/2023 5:33 PM Thank you for letting us participate in the care of this patient. If youare a health care provider and have any questions regarding this report,please contact the number below. For patients who have questions please contactthe health day care worker that requested your imaging first. Electronically signed by: Vasquez Santos MD, [facility]([phone]), at 10/13/2023 5:33 PM Sotero Gr MD IMG MRI ORDERABLES documented in this encounter Visit Diagnoses Diagnosis Chronic pain of left knee Pain in joint, lower leg documented in this encounter Care Teams Intermodal Owner Operator Truck Driver Relationship Specialty Start Date End Date Andi Thomas MD [facility] [place] [address] PCP - General General Internal Medicine 03/01/22 documented as of this encounter
--- OUTSIDE RECORDS SUMMARY | 2024-06-09 02:53 | XMS_ITS | Encounter Summary ---
Author Organization [facility] Address [facility] [place] [address] Care Team Providers Care Mailroom Personnel Name Role Phone Andi Thomas MD Primary Care Provider [phone] Encounter Details Date Type Department Care Team (Latest Contact Info) Description 11/24/2023 Travel Social History Tobacco Use Types Packs/Day Years [...] place to sleep or slept in a long term (including now)? No 04/11/2022 Sex and Gender Information Value Date Recorded Sex Assigned at Not on file Gender Identity Not on file Sexual Orientation Not on file documented as of this encounter Plan of Treatment Upcoming Encounters Date Type Department Care Team (Late st Contact Info) Description 06/16/2024 4:00 PM EDT Office Visit Neph[place] [phone] Betzaida Cope APRN [facility] [place] [address] 06/23/2024 2:00 PM EDT Appointment Non-Invasive Cardiology Lab [place] [phone] Owen Correia MD [facility] [place] [address] documented as of this encounter Visit Diagnoses Not on filedocumented in this encounter Additional Health Concerns Infection Onset Date Last Indicated Resolved Time Rule Out Respiratory 11/24/2023 11/25/2023 024 2:51 AM EDT Rule Out COVID-19 11/24/2023 11/25/2023 11/25/2023 2:51 AM EDT documented as of this encounter Care Teams Mailroom Personnel Relationship Specialty Start Date End Date Andi Thomas MD [facility] [place] [address] PCP - General General Internal Medicine 03/01/22 documented as of this encounter
--- OUTSIDE RECORDS SUMMARY | 2024-06-09 02:53 | XMS_ITS | Encounter Summary ---
Author Organization [facility] Address [facility] [place] [address] Care Team Providers Care Cool Roofing Installer Name Role Phone Andi Thomas MD Primary Care Provider [phone] Reason for Visit * Reason Onset Date Comments Medication Refill 04/27/2024 Encounter Details Date Type Department Care Team (Late st Contact Info) Description 04/27/2024 Refill Cardiology at [address] [address] Owen Correia MD [facility] [place] [address] Medication Refill Social History Tobacco Use Types Packs/Day Years [...] place to sleep or slept in a residential (including now)? No 04/11/2022 IPV Inpatient Questions [...] PM EDT Office Visit [place] [address] Betzaida Cope APRN [facility] [place] [address] 06/23/2024 2:00 PM EDT Appointment Non-[place] [address] Owen Correia MD [facility] [place] [address] documented as of this encounter Visit Diagnoses Not on filedocumented in this encounter Care Teams Cool Roofing Installer Relationship Specialty Start Date End Date Andi Thomas MD [facility] [place] [address] PCP - General General Internal Medicine 03/01/22 documented as of this encounter
--- OUTSIDE RECORDS SUMMARY | 2024-06-09 02:53 | XMS_ITS | Encounter Summary ---
Author Organization [facility] Address [facility] [place] [address] Care Team Providers Care Wreath And Garland Maker Name Role Phone Andi Thomas MD Primary Care Provider [phone] Encounter Details Date Type Department Care Team (Latest Contact Info) Description 09/15/2023 Travel Social History Tobacco Use Types Packs/Day [...] in a correction (including now)? No 04/11/2022 Sex and Gender Information Value Date Recorded Sex Assigned at Not on file Gender Identity Not on file Sexual Orientation Not on file documented as of this encounter Plan of Treatment Upcoming Encounters Date Type Department Care Team (Late st Contact Info) Description 06/16/2024 4:00 PM EDT Office Visit Nephrology Hypertension at [place] [phone] Betzaida Cope APRN [facility] [place] [address] 06/23/2024 2:00 PM EDT Appointment Non-Invasive Cardiology Lab [address] Owen Correia MD [facility] [place] [address] documented as of this encounter Visit Diagnoses Not on filedocumented in this encounter Care Teams Wreath And Garland Maker Relationship Specialty Start Date End Date Andi Thomas MD [facility] GENERAL [place] [address] PCP - General General Internal Medicine 03/01/22 documented as of this encounter
--- OUTSIDE RECORDS SUMMARY | 2024-06-09 02:53 | XMS_ITS | Encounter Summary ---
Author Organization [facility] Address [facility] [place] [address] Care Team Providers Care Clinical Assistant Name Role Phone Andi Thomas MD Primary Care Provider [phone] Reason for Visit * Reason Onset Date Comments Medication Refill 01/24/2024 Encounter Details Date Type Department Care Team (Late st Contact Info) Description 01/24/2024 Refill Cardiology at [address] [address] Owen Correia MD [facility] [place] [address] Medication Refill Social History Tobacco Use Types [...] place to sleep or slept in a penitentiary (including now)? No 04/11/2022 IPV Inpatient Questions [...] PM EDT Office Visit Nephrology [place] [address] Betzaida Cope APRN [facility] [place] [address] 06/23/2024 2:00 PM EDT Appointment Non[place] [address] Owen Correia MD [facility] [place] [address] documented as of this encounter Visit Diagnoses Not on filedocumented in this encounter Care Teams Clinical Assistant Relationship Specialty Start Date End Date Andi Thomas MD [facility] GENERAL [place] [address] PCP - General General Internal Medicine 03/01/22 documented as of this encounter
--- OUTSIDE RECORDS SUMMARY | 2024-06-09 02:53 | XMS_ITS | Encounter Summary ---
Author Organization [facility] Address [facility] [place] [address] Care Team Providers Care Dog Food Dough Mixer Name Role Phone Andi Thomas MD Primary Care Provider [phone] Encounter Details Date Type Department Care Team (Latest Contact Info) Description 12/08/2023 Travel Social History Tobacco Use Types Packs/Day [...] PM EDT Office Visit [place] [address] Betzaida Cope APRN [facility] [place] [address] 06/23/2024 2:00 PM EDT Appointment Non-[place] [address] Owen Correia MD [facility] [place] [address] documented as of this encounter Visit Diagnoses Not on filedocumented in this encounter Care Teams Dog Food Dough Mixer Relationship Specialty Start Date End Date Andi Thomas MD [facility] [place] [address] PCP - General General Internal Medicine 03/01/22 documented as of this encounter
--- OUTSIDE RECORDS SUMMARY | 2024-06-09 02:53 | XMS_ITS | Encounter Summary ---
Author Organization [facility] Address [facility] [place] [address] Care Team Providers Care Meeting Planner Name Role Phone Andi Thomas MD Primary Care Provider [phone] Encounter Details Date Type Department Care Team (Late st Contact Info) Description 11/26/2023 Interpretation Only Radiology 1 [facility] [place] [phone] Unknown None Social History Tobacco Use Types Packs/Day Years [...] place to sleep or slept in a usp (including now)? No 04/11/2022 DH IPV Inpatient [...] PM EDT Office Visit Ne[place] [phone] Betzaida Cope APRN [facility] [place] [address] 06/23/2024 2:00 PM EDT Appointment Non-[place] [phone] Owen Correia MD [facility] [place] [address] documented as of this encounter Procedures Procedure Name Priority Date/Time Associated Diagnosis Comments DH OR ENDOSCOPY Routine 11/26/2023 documented in this encounter Results * DH OR Endoscopy (11/26/2023) Anatomical Region Laterality Modality Other 11/26/2023 Narrative 11/26/2023 12:00 AM EDT Photographs - Images Procedure Note Unknown - 11/29/2023 Photographs - Images Unknown EA IMAGES documented in this encounter Visit Diagnoses Not on filedocumented in this encounter Care Teams Meeting Planner Relationship Specialty Start Date End Date Andi Thomas MD [facility] [place] [address] PCP - General General Internal Medicine 03/01/22 documented as of this encounter
--- OUTSIDE RECORDS SUMMARY | 2024-06-09 02:53 | XMS_ITS | Encounter Summary ---
[place] [address] Care Team Providers Care Block Bolter Mule Operator Name Role Phone Andi Thomas MD Primary Care Provider [phone] Reason for Visit * Reason Onset Date Comments Tachycardia 11/24/2023 Encounter Details Date Type Department Care Team (Late st Contact Info) Description 11/24/2023 Nurse [place]riage [place] [phone] Krystyna Adler RN Tachycardia Social History Tobacco Use Types Packs/Day Years [...] place to sleep or slept in a long-term (including now)? No 04/11/2022 Sex and Gender Information Value Date Recorded Sex Assigned at Not on file Gender Identity Not on file Sexual Orientation Not on file documented as of this encounter Miscellaneous Notes * Telephone Encounter - Krystyna Adler RN - 11/24/2023 4:44 PM EDT Reason for Call: Tachycardia Brief Health History (Onset, Location, Duration, Characteristics, Aggravating Factors, Relieving Factors/Radiation,Timing, and Severity): Live call Spoke with patient who reports last night in the middle of the night after going to the bathroom and getting back into bed his heart started racing, he didn't check HR but thinks it was going at least double his usual HR 60. He got dressed and went downstairs thinking of going to ED, he sat and waited and after 45 mins-1 hr it went away, hasn't happened again. He is also currently having a headache all day, brain fogginess doesn't feel totally with it, feelsa little bit off, not having chest pain but he does report chest feels odd since last night, hard to explain but doesn't feel quite normal. Also reports for the past 5 days has been having a constant sensation in pelvic area like a hummingor vibrating feeling, like a cat purring, feels like soft muscle spasms deep inside, not painful. He is scheduled for surgery Wednesday morning for a knee, he called surgeon and they advised he would need to be evaluated to determine if they can proceed with surgery as scheduled. Denies palpitations, SOB, weakness, dizziness, any other symptoms at this time. Worsening Symptoms: Emphasized symptoms that require emergent/urgent care according to EPIC protocol utilized or other documented decision support tool. Patient able to teach back worsening symptoms and action to take. Patient/Caregiver demonstrates understanding via teach back: Yes Disposition: See Today in Office With odd chest sensation, headache, and foggy feeling recommend ED eval now instead of waiting for OV tomorrow, he verbalized understanding and agrees with plan. Reason for Disposition Heart beating very rapidly (e.g., > 140 / minute) and not present now (Exception: During exercise.) Protocols used: Heart Rate and Heartbeat [id number] documented in this encounter Plan of Treatment Upcoming Encounters Date Type Department Care Team (Late st Contact Info) Description 06/16/2024 4:00 PM EDT Office Visit Nephrology Hypertension at [place] [phone] Betzaida Cope APRN [facility] [place] [address] 06/23/2024 2:00 PM EDT Appointment Non-Invasive Cardiology Lab [place] [phone] Owen Correia MD [facility] [place] [address] documented as of this encounter Visit Diagnoses Not on filedocumented in this encounter Care Teams Block Bolter Mule Operator Relationship Specialty Start Date End Date Andi Thomas MD [facility] [place] [address] PCP - General General Internal Medicine 03/01/22 documented as of this encounter
--- OUTSIDE RECORDS SUMMARY | 2024-06-09 02:53 | XMS_ITS | Encounter Summary ---
[place] [address] Care Team Providers Care Television Maintenance Man Name Role Phone Andi Thomas MD Primary Care Provider [phone] Reason for Referral * Diagnostic Test (Routine) - Closed Specialty Diagnoses / Procedures Referred By Contac t Referred To Contact Cardiology Diagnoses Palpitations Procedures Ziopatch 48 Hrs-15 Days Kelvin Mesa MD [facility] DR [place]ER[place] [address] [facility] [place] [address] Referral ID Status Reason Start Date Expiration Date V isits Requested Visits Authorized [id number] Closed Specialty Service Requested 11/25/2023 11/24/2024 1 1 Reason for Visit * Diagnostic Test (Routine) - Closed Specialty Diagnoses / Procedures Referred By Contac t Referred To Contact Cardiology Diagnoses Palpitations Procedures Ziopatch 48 Hrs-15 Days Kelvin Mesa MD [facility] [address] [place] [address] [facility] [place] [address] Referral ID Status Reason Start Date Expiration Date V isits Requested Visits Authorized [id number] Closed Specialty Service Requested 11/25/2023 11/24/2024 1 1 Encounter Details Date Type Department Care Team (Latest Contact Info) Description 12/16/2023 6:29 AM EDT - 12/16/2023 11:59 PM EDT Hospital Encounter Non-[place] [address] Jp Cardozo MD [address] [place] [address] Palpitations Discharge Disposition: Home Social History Tobacco Use [...] place to sleep or slept in a custodial (including now)? No 04/11/2022 IPV Inpatient Questions [...] Sig Dispensed Refills Start Date End Date oxyCODONE (Roxicodone) 5 mg tablet Take 1 tablet by mouth every 6 hours as needed for Pain. 10 tablet 11/26/2023 aspirin EC 81 mg EC () tabletIndications:Atypi [...] PM EDT Office Visit [place] [address] Betzaida Cope, CABLE OPERATOR [facility] NEPHROLOGY [place], [place] [phone] 06/23/2024 2:00 PM EDT Appointment Non-[place] [address] Owen Correia MD [facility] [place] [address] documented as of this encounter Procedures Procedure Name Priority Date/Time Associated Diagnosis Comments ZIOPATCH 48 HRS-15 DAYS Routine 12/16/2023 6:30 AM EDT Palpitations documented in this encounter Results * Ziopatch 48 Hrs-15 Days (12/16/2023 6:30 AM EDT) Total Enrollment Period [id number] Anatomical Region Laterality Modality Other 12/16/2023 Narrative 01/15/2024 9:43 PM EDT [facility] ? Zio Patch? Ambulatory Cardiac Event Monitor Report Duration of recordin days, 8 hours Summary Data Predominant rhythm: ??Sinus bradycardia Minimum sinus rate: 36 Maximum sinus rate: 140 Average heart rate: 58 Atrial fibrillation: None Pauses: ?? None Ectopic beats Isolated SVEs were rare (<1.0%), SVE Couplets were rare (<1.0%), and SVE Triplets were rare (<1.0%). Isolated VEs were rare (<1.0%), and no VE Couplets or VE Triplets were present. Abnormal Tachycardias 1 run of Supraventricular Tachycardia occurred lasting 4 beats with a max rate of 146 bpm (avg 137 bpm). Triggered and Patient Diary Events There were 2 triggered and 0 patient diary events. Both triggered events were associated with a normal sinus rhythm. Conclusion(s): ?? Rare ectopic beats. No reported symptoms. 2 triggered events associated with a normal sinus rhythm. Dominant rhythm was a sinus bradycardia. Jp Cardozo MD [facility] ORD ERABLES documented in this encounter Visit Diagnoses Diagnosis Palpitations documented in this encounter Care Teams Television Maintenance Man Relationship Specialty Start Date End Date Andi Tohmas MD [facility] GENERAL [place] [address] PCP - General General Internal Medicine 03/01/22 documented as of this encounter
--- OUTSIDE RECORDS SUMMARY | 2024-06-09 02:53 | XMS_ITS | Encounter Summary ---
Author Organization [facility] Address [facility] [place] [address] Care Team Providers Care Circulation Supervisor Name Role Phone Andi Thomas MD Primary Care Provider [phone] Encounter Details Date Type Department Care Team (Latest Contact Info) Description 09/10/2023 Travel Social History Tobacco Use Types Packs/Day [...] in a custodial (including now)? No 04/11/2022 Sex and Gender Information Value Date Recorded Sex Assigned at Not on file Gender Identity Not on file Sexual Orientation Not on file documented as of this encounter Plan of Treatment Upcoming Encounters Date Type Department Care Team (Late st Contact Info) Description 06/16/2024 4:00 PM EDT Office Visit Nephrology Hypertension at [place] [phone] Betzaida Cope APRN [facility] [place] [address] 06/23/2024 2:00 PM EDT Appointment Non-Invasive Cardiology Lab [address] Owen Correia MD [facility] [place] [address] documented as of this encounter Visit Diagnoses Not on filedocumented in this encounter Care Teams Circulation Supervisor Relationship Specialty Start Date End Date Andi Thomas MD [facility] GENERAL [place] [address] PCP - General General Internal Medicine 03/01/22 documented as of this encounter
--- OUTSIDE RECORDS SUMMARY | 2024-06-09 02:53 | XMS_ITS | Encounter Summary ---
Author Organization [facility] [place] [address] Care Team Providers Care Brim Plater Name Role Phone Andi Thomas MD Primary Care Provider Encounter Details Date Type Department Care Team (Late st Contact Info) Description 12/30/2023 Telephone Cardiology at [address] [address] Zandra Clark Social History Tobacco Use Types Packs/Day Years [...] a long term (including now)? No 04/11/2022 IPV Inpatient Questions [...] encounter Miscellaneous Notes * Telephone Encounter - Zandra Clark - 12/30/2023 8:12 AM EDT Insurance approval for Zio faxed to [facility] at [phone]. Zandra Clark Sr. Clinical Procedure Job Press Operator/Stitcher Hand documented in this encounter Plan of Treatment Upcoming Encounters Date Type Department Care Team (Late st Contact Info) Description 06/16/2024 4:00 PM EDT Office Visit [place] [address] Betzaida Cope APRN [facility] [place] [address] 06/23/2024 2:00 PM EDT Appointment Non-Invasive [place] [address] Owen Correia MD [facility] [place] [address] documented as of this encounter Visit Diagnoses Not on filedocumented in this encounter Care Teams Brim Plater Relationship Specialty Start Date End Date Andi Thomas MD [facility] [place] [address] PCP - General General Internal Medicine 03/01/22 documented as of this encounter
--- OUTSIDE RECORDS SUMMARY | 2024-06-09 02:53 | XMS_ITS | Encounter Summary ---
Author Organization [facility] [place] [address] Care Team Providers Care Sock Liner Name Role Phone Andi Thomas MD Primary Care Provider [phone] Encounter Details Date Type Department Care Team (Late st Contact Info) Description 10/15/2023 Telephone [place] [phone] Sotero Gr MD [facility] [place] [address] Social History Tobacco Use Types Packs/Day Years [...] place to sleep or slept in a snf (including now)? No 04/11/2022 Sex and Gender Information Value Date Recorded Sex Assigned at Not on file Gender Identity Not on file Sexual Orientation Not on file documented as of this encounter Miscellaneous Notes * Telephone Encounter - Zahraa Zarate - 10/15/2023 9:24 AM EST Left a message to schedule surgery with Dr Gr documented in this encounter Plan of Treatment Upcoming Encounters Date Type Department Care Team (Late st Contact Info) Description 06/16/2024 4:00 PM EDT Office Visit [place] [address] Betzaida Cope APRN [facility] [place] [address] 06/23/2024 2:00 PM EDT Appointment Non[place] [address] Owen Correia MD [facility] [place] [address] documented as of this encounter Visit Diagnoses Not on filedocumented in this encounter Care Teams Sock Liner Relationship Specialty Start Date End Date Andi Thomas MD [facility] GENERAL [place] [address] PCP - General General Internal Medicine 03/01/22 documented as of this encounter
--- OUTSIDE RECORDS SUMMARY | 2024-06-09 02:53 | XMS_ITS | Encounter Summary ---
Author Organization [facility] [place] [address] Care Team Providers Care Payroll Consultant Name Role Phone Andi Thomas MD Primary Care Provider [phone] Reason for Referral * Consultation (Urgent) - Closed Specialty Diagnoses / Procedures Referred By Contac t Referred To Contact Cardiology Diagnoses Palpitations S/P ED @ for palpitations. Ziopatch pending. PMH left renal infarct and hypertension. Former [place] pt, last seen 02/11/22. Kelvin Mesa MD [facility] [address] [place] [address] [facility] Card[facility] [address] [place] [phone] Referral ID Status Reason Start Date Expiration Date V isits Requested Visits Authorized [id number] Closed Consult, Test & Treat 11/25/2023 11/24/2024 1 1 * Diagnostic Test (Routine) - Closed Specialty Diagnoses / Procedures Referred By Contac t Referred To Contact Cardiology Diagnoses Palpitations Procedures Ziopatch 48 Hrs-15 Days Kelvin Mesa MD [facility] [place] [address] [facility] [place] [address] Referral ID Status Reason Start Date Expiration Date V isits Requested Visits Authorized [id number] Closed Specialty Service Requested 11/25/2023 11/24/2024 1 1 Reason for Visit * Reason Comments Palpitations Headache Encounter Details Date Type Department Care Team (Late st Contact Info) Description 11/24/2023 9:05 PM EDT - 11/25/2023 12:53 AM EDT [place] [address] Jp Cardozo MD [address] [place] [address] Palpitations (Primary Dx) Discharge Disposition: Home Social History Tobacco Use [...] place to sleep or slept in a mcc (including now)? No 04/11/2022 IPV Inpatient Questions [...] on file documented as of this encounter Last Filed Vital Signs Vital Sign Reading Time Taken Comments Blood Pressure 106/93 11/25/2023 12:42 AM EDT Pulse 46 11/24/2023 10:48 PM EDT Temperature 36.7 ??C (98.1 ??F) 11/24/2023 7:14 PM ED T Respiratory Rate 18 11/24/2023 10:48 PM EDT Oxygen Saturation 100% 11/24/2023 10:48 PM EDT Inhaled Oxygen Concentration - - Weight 61.2 kg (135 lb) 11/24/2023 7:14 PM EDT Height - - Body Mass Index 21.19 09/15/2023 2:56 PM EST documented in this encounter Discharge Instructions * Discharge Instructions* Kelvin Mesa MD - 11/25/2023 12:17 AM EDT You were seen in the emergency department for palpitations. Please return to the emergency department if you have worsening or continuous palpitations, shortness of breath, lightheadedness, or any other symptoms that are concerning to you. We have ordered a ZioPatch which you can forklift picker at [facility] clinics. Please call to discuss where to pick this up. Please call you primary care provider to schedule a follow up appointment and if you need a pre-op evaluation. * Attachments The following attachments cannot be sent through Care Everywhere. * Palpitations (Kenyan) documented in this encounter Medications at Time of Discharge Medication Sig Dispensed Refills Start Date End Date oxyCODONE (Roxicodone) 5 mg tablet Take 1 tablet by mouth every 6 hours as needed for Pain. 10 tablet 11/26/2023 aspirin EC 81 mg EC (DR) tabletIndications:Atypi dave chest pain Take 1 tablet by mouth daily. 90 tablet 5 07/03/2023 cholecalciferol, Vitamin D3, 25 mcg (1,000 unit) Capsule Take 1 capsule by mouth daily. 90 capsule 3 01/23/2023 ibuprofen (Advil) 200 mg tablet Take 200 mg by mouth every 6 hours as needed for Pain. aspirin EC 81 mg EC (DR) tablet Take 1 tablet by mouth 2 times daily for 14 days. 28 tablet 11/26/2023 12/10/2023 lisinopriL (Zestril) 10 mg tablet TAKE 1 TABLET BY MOUTH DAILY 90 tablet 3 05/25/2023 06/02/2024 documented as of this encounter ED Notes * Marya Brennan RN - 11/25/2023 12:44 AM EDT Pt up for d/c at this time. MD at bedside reviewing d/c instructions. Instructions reviewed by MD and RN. Pt declines any questions or concerns. IV removed prior to d/c. * Jp Cardozo MD - 11/24/2023 11:54 PM EDT ED Attending Brief Note The patient was seen in conjunction with the resident physician. I have independently performed thekey portions of the history and physical exam. I have reviewed the diagnostic studies including labs, imaging studies and EKGs. I have discussed the details of the case with the resident. Brief Summary: 63 y.o. male with mild thoracic aortic dilation, renal artery stenosis who is presenting with episode of palpitations. Patient states he woke up to use the restroom overnight and began having palpitations. Alleene his pulse was in the 120s. This lasted for 30 to 60 minutes and then resolved spontaneously. He denied any associated chest pain, abdominal pain, back pain, shortness of breath, dizziness,lightheadedness, unusual numbness/tingling/weakness during this episode. He states that today he felt a little more fatigued, but otherwise no additional symptoms other than he reports having roughlya week of a vibratory sensation in his groin. There is no pain or diminished sensation with the vibr atory sensation and he has no issues with urination or bowel function. No saddle anesthesia. No testicular or scrotal pain. On exam, well-appearing. Cardiopulmonary exam unremarkable. exam showed testicles with normal lie, no scrotal erythema/edema, no palpable masses and cremasteric reflexes were present bilaterally. Abdomen soft nontender. Peripheral pulses intact bilaterally. EKG showed mild sinus bradycardia without evidence of acute ischemic changes specifically no ST elevation/ST depression/T wave inversion. No evidence of dysrhythmia, epsilon wave, delta wave, Brugada pattern. Blood work thus far has been unremarkable and reassuring waiting on a delta troponin. Chest x-ray was unremarkable my dependent review confirmed by radiology. At this point has been asymptomatic with regards to his palpitations since this morning. 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 If delta troponin is flat then anticipate he can be discharged home with order for Holter and PCP follow-up. Repeat troponin was flat in the limb out for ACS/AMI. At this point, patient okay for discharge home. Following discharge his viral testing was subsequently negative. Did this case involve critical care? No Jp Cardozo MD 11/25/23 1448 documented in this encounter Plan of Treatment Upcoming Encounters Date Type Department Care Team (Late st Contact Info) Description 06/16/2024 4:00 PM EDT Office Visit Neph[place] [address] Betzaida Cope, [facility] [place] [address] 06/23/2024 2:00 PM EDT Appointment Non-[place] [phone] Owen Correia MD [facility] [place] [address] Scheduled Referrals Name Type Priority Associated Diagnoses Order Schedule Referral to Cardiology Outpatient Referral Urgent Palpitations Ordered: 11/25/2023 documented as of this encounter Procedures Procedure Name Priority Date/Time Associated Diagnosis Comments RAPID COVID-19 PCR ([facility]/APD/NL) STAT 11/25/2023 12:01 AM EDT RAPID INFLUENZA A/B AND RSV PCR ([facility]/P/APD/NL) STAT 11/25/2023 12:01 AM EDT HC TROPONIN T STAT 11/24/2023 11:19 PM EDT URINALYSIS WITH REFLEX CULTURE STAT 11/24/2023 7:37 PM EDT HC TROPONIN T STAT 11/24/2023 7:32 PM EDT HEMOGRAM STAT 11/24/2023 7:32 PM EDT DIFFERENTIAL, AUTOMATED STAT 11/24/2023 7:32 PM EDT CBC (WITH DIFF) STAT 11/24/2023 7:32 PM EDT TSH STAT 11/24/2023 7:32 PM EDT MAGNESIUM STAT 11/24/2023 7:32 PM EDT COMPREHENSIVE METABOLIC PANEL STAT 11/24/2023 7:32 PM EDT XR CHEST ONE VIEW STAT 11/24/2023 7:2 6 PM EDT EKG 12-LEAD STAT 11/24/2023 7:16 PM EDT documented in this encounter Results * Ziopatch 48 Hrs-15 Days (12/16/2023 6:30 AM EDT) Total Enrollment Period [id number] IRHYTHM Anatomical Region Laterality Modality Other 12/16/2023 Narrative 01/15/2024 9:43 PM EDT [facility] ? Zio Patch? Ambulatory Cardiac Event [...] Jp Cardozo MD CARDIAC SERVICES ORD ERABLES * COVID-19 PCR (11/25/2023 12:01 AM EDT) SARS-CoV-2 RNA (Rapid) Not Detected Not Detected [facility] Comment: This result should be interpreted in combination with the clinical observations, patient history and epidemiological information. For testing of asymptomatic individuals, assay performance characteristics and clinical utility have not been evaluated. Testing for SARS-CoV-2 (Severe acute respiratory syndrome coronavirus 2, formerly known as 2019 novel coronavirus or 2019-nCoV) to aid in the diagnosis of COVID-19 is performed using the Aviacodea COVID-19 Direct Assay by shenzhoufu as authorized by the FDA issued Emergency Use Authorization (EUA). This assay is intended for In-vitro Diagnostic (IVD) use with nasopharyngeal swabs collected from individuals meeting the CDC criteria for testing. The assay is performed based on the instructions for use and additional guidance provided by the FDA. Testing is performed in the Microbiology Laboratory within the Department of Pathology and Laboratory Medicine at [facility], certified under the Clinical Laboratory Improvement Amendments of 1988 (CLIA), 42 U.S.C. section 263a, to perform high complexity tests. Assay performance has been verified according to clinical laboratory regulatory requirements. Test results are provided above. A result of Not Detected indicates that the viral RNA target is not present but does not preclude SARS-CoV-2 infection. False negative results may occur if a specimen is improperly collected, transported or handled; if amplification inhibitors are present; or if inadequate numbers of viral particles are present in the specimen. A result of Detected suggests a current or recent infection and the patient is presumed to be infected. Positive and negative predictive values for this test are highly dependent on disease prevalence. A result of Invalid indicates the inability to conclusively determine the presence or absence of SARS-CoV-2 RNA in the sample which can be due to a variety of factors. Recollection is recommended in the case of an invalid result. CDC COVID-19 criteria for testing on human specimens and clinical management guidance information are available at the CDC Coronavirus Disease 2019 (COVID-19) webpage under Information for Healthcare Professionals (https://www.cdc.gov/coronavirus/2019-ncov/hcp/index.html). Additional information about this and other EUA tests can be found in provider and patient fact sheets at the following FDA website: https://www.fda.gov/medical-devices/nfsrcjfoiwk-swiwojh-1049-uhdmm-91-bzmlijyuo- use-a ekvjblddzjfxg-oyoqkid-fbzliqn/ulkpk-gxzwqvnlrxz-ubne SARS-CoV-2 Source EMPLOYEE'S REPRESENTATIVE Swab [facility] Nasopharyngeal Swab 11/25/19 12:01 AM EDT 11/25/2023 1:08 AM EDT Comment:Symptoms->Fever / Re spiratory Symptoms Narrative Resulting Agency Comment Spec In Lab Jp Cardozo MD MICROBIOLOGY - GENER AL ORDERABLES [facility] [place] [address] * Rapid Influenza A/B and RSV PCR ([facility]/APD/NLH) (11/25/2023 12:01 AM EDT) Influenza A PCR Not Detected Not Detected [facility] Influenza B PCR Not Detected Not Detected [facility] RSV PCR Not Detected Not Detected [facility] Resp PCR Source [employer]OYEE[employer]S REPRESENT[employer] Swab [facility] Nasopharyngeal Swab 11/25/19 12:01 AM EDT 11/25/2023 1:08 AM EDT Narrative Resulting Agency Comment Spec In Lab Jp Cardozo MD MICROBIOLOGY - GENER AL ORDERABLES Performing Organization Address City/[facility]/ZIP Co de Phone Number [facility] [place] [address] * Troponin (11/24/2023 11:19 PM EDT) Troponin-T, High Sensitivity 15 <=22 ng/L [facility] Comment: This patient's troponin T concentration was determined using the Deion 5th Generation troponin T assay. The 99th percentile for Troponin T for this test is 14 ng/L for females, and 22 ng/L for males. According to the fourth universal definition of myocardial infarction, the term acute myocardial infarction should be used when there is acute myocardial injury with clinical evidence of acute myocardial ischemia and with detection of a rise and/or fall of cardiac troponin values with at least one value above the 99th percentile and at least one of the following: - Symptoms of myocardial ischemia; - New ischemic ECG changes; - Development of pathological Q waves; - Imaging evidence of new loss of viable myocardium or new regional wall motion abnormality in a pattern consistent with an ischemic etiology; - Identification of a coronary thrombus by angiography or autopsy (not for type 2 or 3 MIs) Serial measurement of troponin and the change in troponin concentration over time (delta) is crucial for the diagnosis of acute myocardial infarction. Guidance on the interpretation of the new 5th Generation Troponin T values and the delta troponin value can be found in the [facility] Test Catalog Troponin - [facility] Test Catalog Reference: Fourth [place] Definition of Myocardial Infarction. Journal of the [place] College [employer] 2018;72:0924-0566 Blood 11/24/2023 11:1 9 PM EDT 11/24/2023 11:24 PM EDT Narrative Resulting Agency Comment Spec In Lab Jp Cardozo MD CHEMISTRY ORDERABLES Performing Organization Address [facility]/ZIP Co de Phone Number [facility] [place] [address] * Urinalysis with reflex Culture (11/24/2023 7:37 PM EDT) Glucose, Urine Dipstick Negative Negative mg/dL [facility] Protein, Urine Dipstick Negative Negative mg/dL [facility] Bilirubin, Urine Dipstick Negative Negative mg/dL [facility] Comment: Clinical correlation required for positive Urine Bilirubin results as false positive may occur with some drugs and drug related products. If a false positive is suspected a serum total bilirubin should be considered if clinically indicated. Urobilinogen, Urine Dipstick Normal Normal mg/dL [facility] pH, Urn (dipstick) 7.0 5.0 - 8.0 [facility] Blood, Urine Dipstick Negative Negative mg/dL [facility] Ketone, Urine Dipstick Negative Negative mg/dL [facility] Nitrite, Urine Dipstick Negative Negative [facility] Leukocytes, Urine Dipstick Negative Negative mcL [facility] Appearance, Urine Dipstick Clear Clear [facility] Specific [place] Urine Automated 1.006 1.005 - 1.030 [facility] Color, Urine Dipstick Yellow Yellow [facility] Reflex to Culture No [facility] Urine 11/24/2023 7:37 PM EDT 11/24/2023 7:42 PM EDT Narrative Resulting Agency Comment Spec In Lab Brian Euceda APRN URINE ORDERABLES Performing Organization Address [facility]/ZIP Co de Phone Number [facility] [place] [address] * Differential, Automated (11/24/2023 7:32 PM EDT) Neutrophil % 52.1 % [facility] Neutrophil Absolute 2.85 1.70 - 6.10 x10(3)/[facility] LABOR[facility] Lymph % 29.9 % [facility] Lymphocytes Abs 1.6 0.9 - 3.2 x10(3)/[facility] LABOR[facility] Monocyte % 12.0 % [facility] Monocyte Abs 0.7 0.3 - 0.9 x10(3)/[facility] LAB[facility] Eos % 4.0 % [facility] Eosinophils Abs 0.2 0.0 - 0.4 x10(3)/[facility] LAB[facility] Basophil % 1.8 % [facility] Baso Absolute 0.1 0.0 - 0.1 x10(3)/[facility] LABORATORY Immature Gran % 0.20 % [facility] Comment: Immature granulocytes(IG's)percentage and absolute count will include metamyelocytes, myelocytes, and promyelocytes. Blood smears from CBCs yielding IG's will be scanned manually for concordance. If this scan disagrees with the automated IG or if promyelocytes are noted, a manual differential will be performed. Immature Gran Absolute 0.01 0.00 - 0.04 x10(3)/[facility] LAB[facility] Blood 11/24/2023 7:32 PM EDT 11/24/2023 7:38 PM EDT Narrative Resulting Agency Comment Spec In Lab Brian Euceda TRAFFIC CONTROL SIGNALER HEMATOLOGY ORDERABLE S [facility] [place] [address] * (ABNORMAL) Hemogram (11/24/2023 7:32 PM EDT) Pathologist [facility] White Blood Cell 5.5 4.0 - 9.5 x10(3)/mc L [facility] Red Blood Cell 4.55(L) 4.58 - 5.54 x10(6)/mc L [facility] Hemoglobin 14.5 13.7 - 16.5 g/dL [facility] Hematocrit 41.6 40.5 - 48.5 % [facility] Mean Cell Volume 91.4 82.9 - 93.1 fL [facility] Mean Cell Hemoglobin 31.9 27.5 - 32.1 pg [facility] Mean Cell Hemoglobin Concentration 34.9 32.0 - 35.7 g/dL [facility] Platelet 168 145 - 357 x10(3)/mc L [facility] RDW Standard Deviation 40.4 36.0 - 45.0 fL [facility] RDW coefficient of variation 12.0 11.4 - 13.8 % [facility] Mean Platelet Volume 11.3 7.6 - 12.9 fL [facility] NRBC% auto 0.0 % [facility] NRBC Absolute 0.000 0.000 - 0.000 x10(3)/mc L [facility] Blood 11/24/2023 7:32 PM EDT 11/24/2023 7:38 PM EDT Narrative Resulting Agency Comment Spec In Lab Brian Euceda TRAFFIC CONTROL SIGNALER HEMATOLOGY ORDERABLE S Performing Organization Address City/State/[facility] Co de Phone Number [facility] [place] [address] * Troponin (11/24/2023 7:32 PM EDT) Troponin-T, High Sensitivity 13 <=22 ng/L [facility] Comment: This patient's troponin T concentration was determined using the Deion 5th Generation troponin T assay. The 99th percentile for Troponin T for this test is 14 ng/L for females, and 22 ng/L for males. According to the fourth universal definition of myocardial infarction, the term acute myocardial infarction should be used when there is acute myocardial injury with clinical evidence of acute myocardial ischemia and with detection of a rise and/or fall of cardiac troponin values with at least one value above the 99th percentile and at least one of the following: - Symptoms of myocardial ischemia; - New ischemic ECG changes; - Development of pathological Q waves; - Imaging evidence of new loss of viable myocardium or new regional wall motion abnormality in a pattern consistent with an ischemic etiology; - Identification of a coronary thrombus by angiography or autopsy (not for type 2 or 3 MIs) Serial measurement of troponin and the change in troponin concentration over time (delta) is crucial for the diagnosis of acute myocardial infarction. Guidance on the interpretation of the new 5th Generation Troponin T values and the delta troponin value can be found in the [facility] Test Catalog Troponin - [facility] Test Catalog Reference: Fourth [place] Definition of Myocardial Infarction. Journal of the [place] College [employer] 2018;72:0599-5178 Blood 11/24/2023 7:32 PM EDT 11/24/2023 7:38 PM EDT Narrative Resulting Agency Comment Spec In Lab Brian [place] Ok HENDERSON CHEMISTRY ORDERABLES [facility] [place] [address] * Magnesium (11/24/2023 7:32 PM EDT) Magnesium 0.99 0.69 - 1.07 mmol/L [facility] Blood 11/24/2023 7:32 PM EDT 11/24/2023 7:38 PM EDT Narrative Resulting Agency Comment Spec In Lab Brian Bartholomew Ok HENDERSON CHEMISTRY ORDERABLES Performing Organization Address [facility] Co de Phone Number [facility] [place] [address] * TSH (11/24/2023 7:32 PM EDT) Thyroid Stimulating Hormone 2.30 0.27 - 4.20 mcIU/mL [facility] Comment: Reference Interval (mcIU/mL): Females: ??First Trimester: 0.23-3.88 ??Second Trimester: 0.22-3.90 ??Third Trimester: 0.44-4.66 Blood 11/24/2023 7:32 PM EDT 11/24/2023 7:38 PM EDT Narrative Resulting Agency Comment Spec In Lab Brian Euceda SANTIAGO CHEMISTRY ORDERABLES Performing Organization Address City/[facility]/ZIP Co de Phone Number [facility] [place] [address] * (ABNORMAL) Comprehensive metabolic panel (non-fasting) (11/24/2023 7:32 PM EDT) Glucose 91 65 - 199 mg/dL [facility] Comment:Diabetes: >=200 mg/d L plus symptoms Blood Urea Nitrogen 16 10 - 20 mg/dL [facility] Creatinine 1.37 0.80 - 1.50 mg/dL [facility] Sodium 139 135 - 145 mmol/L [facility] Potassium 4.3 3.5 - 5.0 mmol/L [facility] Comment: Please note: ??Patients with WBC >100,000 may have falsely elevated Potassium levels. ??For accurate Potassium quantification in these patients send serum separator tube (gold top) for subsequent determinations. ??Contact the Clinical Chemistry Laboratory if there are any questions. Chloride 103 98 - 107 mmol/L [facility] Carbon Dioxide 26 22 - 31 mmol/L [facility] Anion Gap 10 5 - 15 mmol/L [facility] Calcium 9.5 8.5 - 10.5 mg/dL [facility] Protein, Total 6.6 6.1 - 8.0 g/dL [facility] Albumin 4.5 3.2 - 5.2 g/dL [facility] Aspartate Aminotransferase 21 0 - 39 unit/L [facility] Alanine Aminotransferase 13 0 - 55 unit/L [facility] Alkaline Phosphatase 65 40 - 130 unit/L [facility] Bilirubin, Total 0.4 0.2 - 1.3 mg/dL [facility] Est Glomerular Filtration Rate 58(L) >=60 mL/min/1. 73 m?? [facility] Comment: This patient's estimated GFR was calculated using the 2020 CKD-EPI equation. The estimated GFR can vary from the measured GFR by up to 30% in the absence of rapidly changing kidney function. Assessment of the estimated GFR is not appropriate when creatinine concentrations are rapidly changing. For clinical situations in which a more precise estimate of GFR is necessary, consider alternative methods of GFR estimation such as a 24-hour urine creatinine clearance. Assignment of CKD stage 1-5 for patients with an eGFR near the transition point between stages may be based on clinical assessment of muscle mass and symptoms in addition to eGFR. Blood 11/24/2023 7:32 PM EDT 11/24/2023 7:38 PM EDT Narrative Resulting Agency Comment Spec In Lab Brian Euceda TRAFFIC CONTROL SIGNALER [place] [address] * XR Chest One View (11/24/2023 7:26 PM EDT) Anatomical Region Laterality Modality Chest N/A Digital Radiogra phy Impressions 11/24/2023 7:37 PM EDT No acute abnormality. Thank you for letting us participate in the care of this patient. ??If you are a health care provider and have any questions regarding this report, please contact the number below. ??For patients who have questions please contact the health infant caregiver that requested your imaging first. ? Electronically signed by: Savannah Voss MD, [facility] ([phone]), at 11/24/2023 7:37 PM Narrative 11/24/2023 7:37 PM EDT EXAMINATION: XR CHEST ONE VIEW CLINICAL HISTORY: CP TECHNIQUE: 1 view of the chest , PA standing COMPARISON: 09/13/2021 FINDINGS: The lungs are well-inflated. No focal airspace opacity, nodule or interstitial abnormality. Linear density in the inferolateral right lung base is unchanged and may be scarring. Normal heart size. Normal, stable mediastinal configuration. Normal hilar structures. No acute osseous findings. Procedure Note Savannah Voss MD - 11/24/2023 EXAMINATION: XR CHEST ONE VIEW CLINICAL HISTORY: CP TECHNIQUE: 1 view of the chest , PA standing COMPARISON: 09/13/2021 FINDINGS: The lungs are well-inflated. No focal airspace opacity, nodule orinterstitial abnormality. Linear density in the inferolateral right lung base isunchanged and may be scarring. Normal heart size. Normal, stable mediastinal configuration. Normalhilar structures. No acute osseous findings. IMPRESSION No acute abnormality. Thank you for letting us participate in the care of this patient. If youare a health care provider and have any questions regarding this report,please contact the number below. For patients who have questions please contactthe health infant caregiver that requested your imaging first. Electronically signed by: Savannah Voss MD, [facility]([phone]), at 11/24/2023 7:37 PM Brian Euceda APRN IMG DX ORDERABLES * EKG 12 Lead (11/24/2023 7:16 PM EDT) Ventricular rate 54 BPM MUSE SYSTEM Atrial Rate 54 BPM MUSE SYSTEM P-R Interval 150 ms MUSE SYSTEM QRS Duration 86 ms MUSE SYSTEM Q-T Interval 424 ms MUSE SYSTEM QTC Calculated (Bezet) 402 ms MUSE SYSTEM Calculated P [place] 74 degrees MUSE SYSTEM Calculated R [place] 76 degrees MUSE SYSTEM Calculated T [place] 50 degrees MUSE SYSTEM INTERPRETATION Sinus bradycardia Otherwise normal ECG When compared with ECG of 13-SEP-2021 10:31, No significant change was found Confirmed by MD Lucinda, Venu ([id number]) on 11/25/2023 5:04:59 PM MUSE SYSTEM 11/24/2023 7:16 PM EDT 11/25/2023 5:04 PM EDT Brian Euceda APRN ECG ORDERABLES MUSE SYSTEM documented in this encounter Visit Diagnoses Diagnosis Palpitations- Primary Palpitations documented in this encounter Additional Health Concerns Infection Onset Date Last Indicated Resolved Time Rule Out Respiratory 11/24/2023 11/25/2023 024 2:51 AM EDT Rule Out COVID-19 11/24/2023 11/25/2023 11/25/2023 2:51 AM EDT documented as of this encounter Care Teams Payroll Consultant Relationship Specialty Start Date End Date Andi Thomas MD [facility] [place] [address] PCP - General General Internal Medicine 03/01/22 documented as of this encounter
--- OUTSIDE RECORDS SUMMARY | 2024-06-09 02:53 | XMS_ITS | Encounter Summary ---
[place] [address] Care Team Providers Care Regional Clinical Research Associate Name Role Phone Andi Thomas MD Primary Care Provider [phone] Reason for Visit * Reason Onset Date Comments Bumped Appointment 12/06/2023 Encounter Details Date Type Department Care Team (Late st Contact Info) Description 12/06/2023 Telephone [place] [address] Clinic, Dr Gr Team None Bumped Appointment Social History Tobacco Use Types Packs/Day Years [...] a long term (including now)? No 04/11/2022 DH IPV Inpatient [...] encounter Miscellaneous Notes * Telephone Encounter - Soto Lopez - 12/06/2023 12:56 PM EDT Moshe called back and rescheduled fo rthis week on Wed in the noon hour. * Telephone Encounter - Brneda Zarco - 12/06/2023 11:09 AM EDT LM#1 to reschedule bumped appointment with [facility] scheduled on 12/08/23. Please reschedule to SAME Day noon hour if slots are still available or with florencio 12/13,12/14,12/15 inheld slot. documented in this encounter Plan of Treatment Upcoming Encounters Date Type Department Care Team (Late st Contact Info) Description 06/16/2024 4:00 PM EDT Office Visit Nephrology [place] [phone] Betzaida Cope APRN [facility] [address] 06/23/2024 2:00 PM EDT Appointment Non-Invasive [place] [phone] Owen Correia MD [facility] [place] [address] documented as of this encounter Visit Diagnoses Not on filedocumented in this encounter Care Teams Regional Clinical Research Associate Relationship Specialty Start Date End Date Andi Thomas MD [facility] [place] [address] PCP - General General Internal Medicine 03/01/22 documented as of this encounter
--- OUTSIDE RECORDS SUMMARY | 2024-06-09 02:53 | XMS_ITS | Encounter Summary ---
[place] [address] Care Team Providers Care Typo Machine Operator Name Role Phone Andi Thomas MD Primary Care Provider [phone] Reason for Visit * Auth/Cert (Routine) Specialty Diagnoses / Procedures Referred By Contac t Referred To Contact Diagnoses Acute medial meniscus tear of left knee, sequela Mensicus tear Procedures PRO KNEE SCOPE, MED/LAT MENISECTOMY ARTHROSCOPY KNEE, MENISCECTOMY SINGLE W/ SHAVING (WRVU 7.03) Sotero Gr MD [facility] [place] [address] [facility] Referral ID Status Reason Start Date Expiration Date Visits Re quested Visits Authorized [id number] 1 1 Encounter Details Date Type Department Care Team (Late st Contact Info) Description 11/26/2023 1:05 PM EDT Anesthesia Event [place] [address] Benigno Borja MD [facility] [place] [address] Anesthesia Record Procedure Summary Procedure Name Responsible Anesthesiologist Anesthesia Start Time Anesthesia Stop Time ARTHROSCOPY KNEE, MENISCECTOMY SINGLE W/ SHAVING (WRVU 7.03) (Left: Knee) Benigno Borja MD 11/26/23 1305 11/26/23 1359 Events Date Time Event Comment 11/26/2023 0729 1305 Start 1309 AN Verify 1309 An Start Data 1313 An Induction 1314 An Intubation 1315 Anesthesia Ready 1330 Procedure Start 1354 an stop data 1359 Recovery or ICU Handoff Cata ent care was transferred to the destination unit staff after review of the patient's medical history, current anesthetic/surgical status and plan, according to the Provider Handoff Checklist. 1359 Stop Meds Name Total Propofol 200 mg Propofol INF 94.86 mg fentaNYL 50 mcg Midazolam 2 mg IV Lidocaine 100 mg Dexamethasone 8 mg Ondansetron 8 mg ceFAZolin (Ancef) (100 mg/mL) injection solution 2 g 2 g ketorolac 30 mg lactated ringers infusion 600 mL * Agents Name O2 * Blood No blood administrations on file. Lines, Drains, and Airways Type Details Placement Removal Supraglottic Mask Ventilation: No t Attempted (0); LMA Type: iGel; LMA Size: 4; Inserted by: Nestor Augustin CRNA 11/26/23 1314 by Nestor Augustin CRNA Incision 11/26/23; 1330; Left , anterior; knee 11/26/23 1330 by Janelle Aguirre RN PIV 11/26/23; 1210; 20 g auge; cephalic vein (lateral side of arm), right; Anatomical Landmarks; Sandra Chu RN; distraction, topical anesthetic spray applied, tolerated well, appears comfortable; 0; no longer indicated; 11/26/23; 1505 11/26/23 1210 by Ashwin Chu RN 11/26/23 1505 by Ida Goldberg RN documented in this encounter Social History Tobacco Use Types Packs/Day Years [...] in a snf (including now)? No 04/11/2022 DH IPV Inpatient [...] on file documented as of this encounter OR Notes * Anesthesia Postprocedure Evaluation - Benigno Borja MD - 11/26/2023 2:16 PM EDT Department of Anesthesiology Post-procedure Note Patient: Moshe Castillo Procedure Summary Date: 11/26/23 Room / Location: [address] [facility] Anesthesia Start: 1305 Anesthesia Stop: 1359 Procedure: ARTHROSCOPY KNEE, MENISCECTOMY SINGLE W/ SHAVING (WRVU 7.03) (Left: Knee) Diagnosis: Acute medial meniscus tear of left knee, sequela (Mensicus tear) Surgeons: Sotero Gr MD Responsible Provider: Benigno Borja MD Anesthesia Type: general ASA Status: 3 All Anesthesia Providers: Anesthesiologist: Benigno Borja MD RETAIL ASSISTANT MANAGER: Nestor Augustin CRNA Vitals Value Taken Time BP 108/74 11/26/23 1411 Temp 36 ??C (96.8 ??F) 11/26/23 1355 Pulse 56 11/26/23 1415 Resp 16 11/26/23 1355 SpO2 98 % 11/26/23 1415 Pain Level 0 11/26/23 1355 Vitals shown include unfiled device data. Patient Location: PACU[facility] Level of Consciousness: Awake and Alert Pain Management: Satisfactory Analgesia PONV: None Cardiovascular Status: At Baseline and Hemodynamically Stable Respiratory Status: At Baseline and Room Air Postoperative Fluid Status: Intravascular EUvolemia Possible Anesthetic Complications: NONE apparent at time of evaluation Final Primary Anesthesia Type: General (The anesthetic type performed was the same as planned.) Comments: Benigno Borja MD * Anesthesia Preprocedure Evaluation - Benigno Borja MD - 11/26/2023 7:27 AM EDT Pre-Anesthesia Evaluation for: Moshe Castillo a 63 y.o. male. Procedure(s): ARTHROSCOPY KNEE, MENISCECTOMY SINGLE W/ SHAVING (WRVU 7.03) Patient Active Problem List Diagnosis Date Noted ??? Stage 3a chronic kidney disease (CKD) 01/23/2023 ??? HTN (hypertension) 11/14/2021 ??? Lung nodule, solitary 08/12/2019 ??? Atypical chest pain 12/18/2018 ??? Elevated serum creatinine 11/27/2018 ??? Renal artery stenosis 11/27/2018 ??? Nevus 10/31/2013 ??? Family history of malignant melanoma 10/31/2013 Past Medical History: Diagnosis Date ??? 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 HTN (hypertension) ??? Renal artery stenosis left renal artery Past Surgical History: Procedure Laterality Date ??? PRO COLONOSCOPY, DIAGNOSTIC N/A 03/05/2020 COLONOSCOPY, DIAGNOSTIC performed by Sonny Mike MD at [facility] Social History Tobacco Use ??? Smoking status: Never ??? Smokeless tobacco: Never Substance Use Topics ??? Alcohol use: Yes Alcohol/week: 7.0 standard drinks of alcohol Types: 7 Cans of beer per week Social History Substance and Sexual Activity Drug Use Never Allergies Allergen Reactions ??? Amlodipine Other (See Comments) CHEST DISCOMFORT ??? Pseudafen [Pseudoephedrine Hcl] Other (See Comments) Heart races Medications: MAR and/or home medications have been reviewed. Physical Exam: Preprocedure Vitals Current as of 11/26/23 0727 No BP, pulse, respiration, SpO2, or temperature recorded. Height: Weight: BMI: IBW: Airway Assessment: Mallampati: II TM distance: <3 FB Neck ROM: full Cardiovascular Assessment: Rhythm: regular Rate: normal system normal Pulmonary Assessment: unlabored breathing pulmonary exam normal Dental Assessment: - normal exam Misc Assessment: Patient is wearing No contact(s). IV access: Peripheral line Last Filed Perioperative Cognitive Screening None Anesthesia Plan: ASA 3 general, with a(n) intravenous induction 63-year-old 61.2 kg M with PMH: HTN (lisinopril), renal artery stenosis, patient presents here today for arthroscopy and meniscectomy of his left knee. Allergies: Amlodipine, Sudafed [pseudoephedrine HCl] NPO status: Appropriate Plan: GA LMA, PIV x 1, standard ASA monitors, GETA backup Region - Other Informed Consent: Anesthetic plan and risks discussed with patient. Plan discussed with RETAIL ASSISTANT MANAGER and attending. Anesthesia Screening documented in this encounter Plan of Treatment Upcoming Encounters Date Type Department Care Team (Late st Contact Info) Description 06/16/2024 4:00 PM EDT Office Visit Ne[place] [phone] Betzaida Cope, [facility] [place] [address] 06/23/2024 2:00 PM EDT Appointment Non-Invasive Cardiology [place] [address] Owen Correia MD [facility] [place] [address] documented as of this encounter Visit Diagnoses Not on filedocumented in this encounter Administered Medications Inactive Administered Medications - up to 3 most recent administrations Medication Order MAR Action Action Date Dose Rate Site ceFAZolin (Ancef) (100 mg/mL) injection solution 2 g 2 g, Intravenous, EVERY 4 HOURS, 1 dose, First dose on Wed11/26/23 at 1145, Redose after 4 hours. To be prepared by and administered by Anesthesia. Reconstitute each ceFAZolin 1 gram vial with 10 mL of NS or SWFI = 100 mg/mL May inject IV without further dilution over 3 to 5 minutes., Day of Surgery (Day of Procedure), Indication for (Active or Suspected): Prophylaxis Given 11/26/2023 1:17 PM EDT 2 g dexAMETHasone (Decadron) injection Intravenous, PRN, Starting on Wed11/26/23 at 1315, Until Wed11/26/23 at 1359, Anesthesia Intra-op, Routine Given 11/26/2023 1:15 PM EDT 8 mg fentaNYL (pf) (50 mcg/mL) multi-dose injection Intravenous, PRN, Starting on Wed11/26/23 at 1305, Until Wed11/26/23 at 1359, Anesthesia Intra-op, Routine Given 11/26/2023 1:30 PM EDT 25 mcg Given 11/26/2023 1:05 PM EDT 25 mcg ketorolac (Toradol) (30 mg/mL) injection Intravenous, PRN, Starting on Wed11/26/23 at 1346, Until Wed11/26/23 at 1359, Anesthesia Intra-op, Routine Given 11/26/2023 1:46 PM EDT 30 mg lactated ringers infusion 1,000 mL, at 100 mL/hr, Intravenous, CONTINUOUS, Starting on Wed11/26/23 at 1145, Until Wed11/26/23 at 1510, Day of Surgery (Day of Procedure) New Bag 11/26/2023 1:05 PM EDT lidocaine (pf) (Xylocaine) (20 mg/mL) 2% injection syringe Intravenous, PRN, Starting on Wed11/26/23 at 1313, Until Wed11/26/23 at 1359, Anesthesia Intra-op, Routine Given 11/26/2023 1:13 PM EDT 100 mg midazolam (pf) (Versed) (1 mg/mL) multi-dose injection Intravenous, PRN, Starting on Wed11/26/23 at 1305, Until Wed11/26/23 at 1359, Anesthesia Intra-op, Routine Given 11/26/2023 1:05 PM EDT 2 mg ondansetron (pf) (Zofran) (2 mg/mL) injection Intravenous, PRN, Starting on Wed11/26/23 at 1315, Until Wed11/26/23 at 1359, Anesthesia Intra-op, Routine Given 11/26/2023 1:46 PM EDT 4 mg Given 11/26/2023 1:15 PM EDT 4 mg propofoL (Diprivan) (10 mg/mL) infusion Intravenous, CONTINUOUS PRN, Starting on Wed11/26/23 at 1315, Until Wed11/26/23 at 1359, Anesthesia Intra-op, Routine New Bag 11/26/2023 1:15 PM EDT 50 mcg/kg/min 18.36 mL/hr propofoL (Diprivan) 10 mg/mL bolus injection (Anesthesia) Intravenous, PRN, Starting on Wed11/26/23 at 1313, Until Wed11/26/23 at 1359, Anesthesia Intra-op Given 11/26/2023 1:13 PM EDT 200 mg documented in this encounter Care Teams Typo Machine Operator Relationship Specialty Start Date End Date Andi Thomas MD [facility] [place] [address] PCP - General General Internal Medicine 03/01/22 documented as of this encounter
--- OUTSIDE RECORDS SUMMARY | 2024-06-09 02:53 | XMS_ITS | Encounter Summary ---
Author Organization [facility] [place] [address] Care Team Providers Care Hotel Recreational Facilities Manager Name Role Phone Andi Thomas MD Primary Care Provider [phone] Encounter Details Date Type Department Care Team (Latest Contact Info) Description 01/24/2024 Travel Social History Tobacco Use Types Packs/Day [...] place to sleep or slept in a detention (including now)? No 04/11/2022 IPV Inpatient Questions [...] PM EDT Office Visit [place] [address] Betzaida Cope APRN [facility] [place] [address] 06/23/2024 2:00 PM EDT Appointment Non-Invasive [place] [address] Owen Correia MD [facility] [place] [address] documented as of this encounter Visit Diagnoses Not on filedocumented in this encounter Care Teams Hotel Recreational Facilities Manager Relationship Specialty Start Date End Date Andi Thomas MD [facility] [place] [address] PCP - General General Internal Medicine 03/01/22 documented as of this encounter
--- OUTSIDE RECORDS SUMMARY | 2024-06-09 02:53 | XMS_ITS | Encounter Summary ---
[place] [address] Care Team Providers Care Financial Reporting Director Name Role Phone Andi Thomas MD Primary Care Provider [phone] Reason for Visit * Reason Comments Follow-up MRI L KNEE MRI RE VIEW Encounter Details Date Type Department Care Team (Late st Contact Info) Description 10/13/2023 2:00 PM EST Office [place] [phone] Clinic, Dr Gr Team None Acute medial meniscus tear of left knee, sequela; Pain of left lower extremity Social History Tobacco Use Types Packs/Day Years [...] place to sleep or slept in a care home (including now)? No 04/11/2022 Sex and Gender Information Value Date Recorded Sex Assigned at Not on file Gender Identity Not on file Sexual Orientation Not on file documented as of this encounter Progress Notes * Sotero Gr MD - 10/13/2023 2:00 PM EST Patient ID: Moshe Castillo Chief Complaint Patient presents with Follow-up MRI L KNEE MRI REVIEW HPI the patient is here today for follow-up of his knee. He did obtain his MR and presents for discussion on the findings and potential interventions. His knee does continue to bother him at this point and he feels like it is limiting. For review of his previous history:He states that he injured his right knee originally from October 2022 playing basketball when he states that he sustained an extension and twisting injury of the left knee which resulted in immediate onset of posterior thigh/knee pain which persisted for several weeks at which point he began to notice medial sided knee pain in the posterior knee/thigh pain began to subside. The left medial sided knee pain has persisted up till the present time and has worsened. He has remained extremely active and continues playing basketball and running up to 3 miles at a time, however has had increasing difficulty over the past couple months with these activities due tothe pain. She has done physical therapy since April which she says has helped moderately. Has not used any medications or received any injections. He saw his PCP several times for this issue and hisPCP believes that he had evidence of a meniscal injury and an MRI was ordered but not performed as the patient's insurance would not cover the MRI because x-ray had not been done yet. Patient Active Problem List Diagnosis Code Nevus D22.9 Family history of malignant melanoma Z80.8 Elevated serum creatinine R79.89 Renal artery stenosis I70.1 Atypical chest pain R07.89 Lung nodule, solitary R91.1 HTN (hypertension) I10 Stage 3a chronic kidney disease (CKD) N18.31 Allergies Allergen Reactions Amlodipine Other (See Comments) CHEST DISCOMFORT Pseudafen [Pseudoephedrine Hcl] Other (See Comments) Heart races Current Outpatient Medications on File Prior to Visit Medication Sig Dispense Refill aspirin EC 81 mg EC (DR) tablet Take 1 tablet by mouth daily. 90 tablet 5 lisinopriL (Zestril) 10 mg tablet TAKE 1 TABLET BY MOUTH DAILY 90 tablet 3 cholecalciferol, Vitamin D3, 25 mcg (1,000 unit) Capsule Take 1 capsule by mouth daily. 90 capsule 3 ibuprofen (Advil) 200 mg tablet Take 200 mg by mouth every 6 hours as needed for Pain. No current facility-administered medications on file prior to visit. Review of Systems 09/15/2023 [facility] Non-surgical Followup Visit PROMIS-10 General Health Very Good PROMIS-10 Quality of Life Very Good PROMIS-10 Physical Health Very Good PROMIS-10 Mental Health Very Good PROMIS-10 Social Activity Very Good PROMIS-10 Everyday Activities Mostly PROMIS-10 Pain 2 PROMIS-10 Fatigue None PROMIS-10 Social Roles Excellent PROMIS-10 Anxious or Depressed Never PROMIS PHYSICAL SCORE (range 16-68) 54.1 PROMIS MENTAL SCORE (range 21-68) 56 Treatments Tried Regular exercise Physical therapy Over the counter anti-inflammatory drugs (e.g Advil, Aspirin, Aleve) KOOS JRScores 61.58 TKA Grade 2 09/15/2023 [facility] Response KOOS JR Scores 61.58 09/15/2023 [facility] Response KOOS JR Scores 61.58 Objective There were no vitals taken for this visit. Physical Exam No change in his physical exam. Small effusion present. Range of motion: 0-115. No calf tenderness Distal motor and sensory exams intact. Imaging: Multiple radiographic views were obtained at my request. I personally reviewed the images and shared them with the patient. The MRI reveals minimal degenerative changes present with no bone edema though some thinning of cartilage. He has a complex medial meniscus tear with a small effusionpresent. Assessment & Plan Left Knee Medial meniscus tear The patient I reviewed the findings together. I reviewed the images with him. I showed him what a normal meniscus looks like on the lateral side of his knee compared to the torn meniscus on the medial side. He feels that he has been trying to treat this nonoperatively for quite some time and he continues to be limited by that. We did review his previous patient reported outcome measures which confirm a poor functioning knee. We talked about the potential of having more arthritic change in the knee than what is evidenced onthe MR and that he may not see the same significant benefit from meniscal debridement as a younger person without changes. We also talked about the fact that the meniscal intervention would not change the natural history which is progression of arthritic change in his knee. The reason to do the arthroscopy is to decrease his pain and dysfunction. Discussed risks, The risks and benefits of the procedure were discussed with the patient. We discussed: bleeding, infection, blood clots, scar formation, persistent pain, stiffness, bursitis, fracture, nerve palsy, compartment syndrome, skin numbness, need for further surgery, prominent hardware, an esthetic risk and/or medical complications. The need for participation in PT and additional hard work on his/her own was discussed. He would not be a candidate for the ICG meniscal study given his single kidney. Discussed [id number] Discussed some early recovery SILVA done in case he would like to proceed documented in this encounter Plan of Treatment Upcoming Encounters Date Type Department Care Team (Late st Contact Info) Description 06/16/2024 4:00 PM EDT Office Visit Neph[place] [phone] Betzaida Cope APRN [facility] [place] [address] 06/23/2024 2:00 PM EDT Appointment Non-[place]vasive [place] [address] Owen Correia MD [facility] [place] [address] documented as of this encounter Visit Diagnoses Diagnosis Acute medial meniscus tear of left knee, sequela Pain of left lower extremity documented in this encounter Care Teams Financial Reporting Director Relationship Specialty Start Date End Date Andi Thomas MD [facility] [place] [address] PCP - General General Internal Medicine 03/01/22 documented as of this encounter
--- OUTSIDE RECORDS SUMMARY | 2024-06-09 02:53 | XMS_ITS | Encounter Summary ---
Author Organization [facility] Address [facility] [place] [address] Care Team Providers Care Ski Technician Name Role Phone Andi Thomas MD Primary Care Provider [phone] Encounter Details Date Type Department Care Team (Latest Contact Info) Description 10/13/2023 Travel Social History Tobacco Use Types Packs/Day [...] PM EDT Office Visit Nephrology Hypertension at [place] [phone] Betzaida Cope APRN [facility] [address] 06/23/2024 2:00 PM EDT Appointment Non-Invasive Cardiology Lab [address] Owen Correia MD [facility] [place] [address] documented as of this encounter Visit Diagnoses Not on filedocumented in this encounter Care Teams Ski Technician Relationship Specialty Start Date End Date Andi Thomas MD [facility] [place] [address] PCP - General General Internal Medicine 03/01/22 documented as of this encounter
--- OUTSIDE RECORDS SUMMARY | 2024-06-09 02:53 | XMS_ITS | Encounter Summary ---
[place] [address] Care Team Providers Care Estimator Project Manager Name Role Phone Andi Thomas MD Primary Care Provider [phone] Reason for Referral * Diagnostic Test (Routine) - Closed Specialty Diagnoses / Procedures Referred By Contac t Referred To Contact Radiology Diagnoses Chronic pain of left knee Procedures MRI Knee wo Contrast Left (Generic) Dwayne Longoria MD [facility] OR[place]OP[place]IC [place] [address] [place] [address] Referral ID Status Reason Start Date Expiration Date V isits Requested Visits Authorized [id number] Closed Specialty Service Requested 09/15/2023 03/15/2025 1 1 Reason for Visit * Reason Comments Left Knee Pain LEFT KNEE MENISCUS I NJURY DOI ~OCT 2022 * Surgical (Routine) - Closed Specialty Diagnoses / Procedures Referred By Contac t Referred To Contact Orthopaedics Diagnoses Injury of meniscus of left knee, initial encounter Andi Thomas MD [facility] GENERAL INTER[place] [address] [facility] [address] [place] [id number] Referral ID Status Reason Start Date Expiration Date V isits Requested Visits Authorized [id number] Closed Specialty Service Requested 08/31/2023 08/30/2024 1 1 Encounter Details Date Type Department Care Team (Raphael st Contact Info) Description 09/15/2023 1:40 PM EST Office Visit Orthopaedics at [facility] [place] [address] Clinic, Dr Gr Team None Chronic pain of left knee Social History Tobacco Use Types Packs/Day Years [...] place to sleep or slept in a skilled nursing (including now)? No 04/11/2022 Sex and Gender Information Value Date Recorded Sex Assigned at Not on file Gender Identity Not on file Sexual Orientation Not on file documented as of this encounter Last Filed Vital Signs Vital Sign Reading Time Taken Comments Blood Pressure - - Pulse - - Temperature - - Respiratory Rate - - Oxygen Saturation - - Inhaled Oxygen Concentration - - Weight 61.2 kg (135 lb) 09/15/2023 1:27 PM EST Height 170.2 cm (5' 7) 09/15/2023 1:27 PM EST Body Mass Index 21.14 09/15/2023 1:27 PM EST documented in this encounter Progress Notes * Dwayne Longoria MD - 09/15/2023 1:40 PM EST Images from the original note were not included. Department of Orthopaedics Division of Adult Joint Reconstructive Surgery Subjective: RE: Moshe Castillo CC: Chief Complaint Patient presents with Left Knee Pain LEFT KNEE MENISCUS INJURY DOI ~OCT 2022 DIAGNOSIS: Pain, RIGHT knee. ARTHROPLASTY PROCEDURES: (mm/dd/yyyy: left/right procedure, hospital, surgeon) None Moshe Castillo was referred from Andi Thomas MD [facility] [place] [address] HISTORY OF PRESENT ILLNESS: Moshe Castillo who is a 62 y.o. male TAA tx w/ serial monitoring, renal a stenosis s/p infarction w/1 functional kidney currently, who has a history of right knee pain over the past year. He states that he injured his right knee [...] past couple months with these activities due to the pain. She has done physical therapy since April which she says has helped moderately. Has not used any medications or received any injections. He saw his PCP several times for this issue and his PCP believes that he had evidence of a meniscal injury and an MRI was ordered but not performed as the patient's insurance would not cover the MRIbecause x-ray had not been done yet. X-ray today shows evidence of mild osteoarthritis of the left knee with significant patellofemoral disease. Patient denies fevers, chills, night sweats, nausea, or vomiting. He does not endorse a history of DVT/PE or clotting disorder. QUESTIONNAIRE RESPONSES: 09/15/2023 General Health, Prior Treatments, PreExisting Condition, Health Habits, About You PROMIS-10 General Health Very Good PROMIS-10 Quality [...] anti-inflammatory drugs (e.g Advil, Aspirin, Aleve) KOOS JR Scores 61.58 TKA Grade 2 Alzheimers or dementia No Cirrohosis or liver disease No HIV/AIDS No Pain in more than one joint in legs No Back or neck pain Yes Heart attack No Heart failure No Unclog/bypass leg arteries No Stroke, blood clot, TIA No Asthma No Emphysema, chronic bronchities, or COPD No Stomach ulcers/peptic ulcer disease No Diabetes No Poor kidney function Yes Dialysis No Kidney transplant No Rheumatic condtions No Cancer No Weight (lbs) 135 Height (feet) 5 feet Height (Inches) 7 BMI 21.14 (Normal) Ever used tobacco products No Ever used alcoholic beverages Yes Alcohol frequency Daily or almost daily WHO - Alcohol Advice 6 (You are at risk of health and other problems from your current pattern of alcohol use.) Live Alone No Marital situation Schooling More than 4 - year college Combined Household Income $75,000 or more # People Supported 3 Mongolian, , No, not Mongolian// Race White Health Literacy Extremely Currently working Yes Current job situation Full-time 09/15/2023 [facility] Response KOOS JR Scores 61.58 09/15/2023 [facility] Response KOOS JR Scores 61.58 ALLERGIES: Allergies Allergen Reactions Amlodipine Other (See Comments) CHEST DISCOMFORT Pseudafen [Pseudoephedrine Hcl] Other (See Comments) Heart races SOCIAL HISTORY: reports that he has never smoked. He has never used smokeless tobacco. He reports current alcohol use of about 7.0 standard drinks of alcohol per week. He reports that he does not usedrugs. SIGNIFICANT MEDICAL COMORBIDITIES: Patient Active Problem List Diagnosis Code Nevus D22.9 Family history of malignant melanoma Z80.8 Elevated serum creatinine R79.89 Renal artery stenosis I70.1 Atypical chest pain R07.89 Lung nodule, solitary R91.1 HTN (hypertension) I10 Stage 3a chronic kidney disease (CKD) N18.31 Past Surgical History: Procedure Laterality Date PRO COLONOSCOPY, DIAGNOSTIC N/A 03/05/2020 COLONOSCOPY, DIAGNOSTIC performed by Sonny Mike MD at [facility] ENDOSCOPY FAMILY HISTORY: Family history was reviewed with patient and is as listed below. There is not a family history of bleeding or anesthetic complications. Family History Problem Relation Age of Onset Myocardial Infarction Father 52 REVIEW OF SYSTEMS: A detailed review of systems was performed and is as reviewed with the patient and indicated in thechart. Review of Systems Constitutional: Negative. HENT: Negative. Eyes: Negative. Respiratory: Negative. Negative for shortness of breath. Cardiovascular: Negative for chest pain. Gastrointestinal: Negative. Genitourinary: Negative. Musculoskeletal: Positive for joint pain. Skin: Negative. Neurological: Negative. Endo/Heme/Allergies: Negative. Psychiatric/Behavioral: Negative. All other systems reviewed and are negative. Patient denies fevers, chills, night sweats, nausea, or vomiting. Objective: VITALS: BP Readings from Last 1 Encounters: 04/08/23 108/79 Pulse Readings from Last 1 Encounters: 04/08/23 63 Height: 170.2 cm (5' 7) Weight: 61.2 kg (135 lb) Body mass index is 21.14 kg/m??. PHYSICAL EXAMINATION: Constitution: Moshe Castillo sits in the clinic today alert, appears stated age, and cooperative. Heis alert and oriented. I have made the following determinations: Walks with a Normal gait. Knee Exam: LEFT Prior surgery on this joint: No Knee ROM: Extension:0 Flexion: 140 Alignment: 0-4 degrees Neutral Stability: A/P Translation <5mm. Varus (lateral stability) <5mm Valgus (medial stability) <5mm Extension La degrees or less Patella Tracking: Normal Skin Integrity: Normal Pulses Palpable: Right PT: Yes Right DP:Yes Motor/Sensory: Distal Motor: Normal Distal Sensory: Normal Quadriceps Strength: 5 Knee Effusion: None. Ecchymosis: none Tenderness: Mild medial sided TTP IMAGING: I personally reviewed and interpreted the radiographs obtained on 09/15/23 of the left knee which showed mild osteoarthritis with medial joint space narrowing and significant patellofemoral arthritis. REVIEW OF OUTSIDE RECORDS: None Assessment & Plan: IMPRESSION: Mr. Castillo is a 62 y.o. year old male with mild osteoarthritis of his LEFT knee. He has been referred to [facility] for possible meniscal injury in the setting of his approximately 1 year history of medial sided left knee pain. Patient does have a positive Homer's test illustrated by ability to reproduce his medial sided pain on exam in the absence of catching or locking. X-rays as above with mild OA. He is yet to obtain an MRI but hopefully will have this done soon pending insurance authorization (Ordered by me today 09/15/23), and we discussed that this is the next step to evaluate for meniscal pathology. We discussed managing his pain conservatively in the interim with continuation of PT, OTC medications with Tylenol and NSAIDs (discussed risks of NSAIDS in age >50). He may be considered for steroid injection down the line as well. Discussed with patient obtaining MRI L knee and following up in afternoon following completion of that study. We discussed that it is unlikely that he would have meniscal pathology amenable to repair, more likely would be pathology amenable to debridement or conservative management. He confirmed understanding and agreed to proceed with MRI and f/u after completion. PLAN: - AAT - MRI L knee to eval for meniscal pathology - Clinic f/u in afternoon following MRI to discuss results -Conservative measures for pain management in the interim as above, continuation of PT and additionof Tylenol/NSAIDs (discussed risks of NSAIDS in age >50) STACEY Longoria MD * Rony Gr MD - 09/15/2023 1:40 PM EST I saw and evaluated the patient. I was integral in formulating the plan as outlined. RONY GR MD documented in this encounter Miscellaneous Notes * Addendum Note - Dwayne Longoria MD - 09/15/2023 1:40 PM ESTAddended by: DWAYNE LONGORIA on: 09/15/2023 02:33 PM Modules accepted: Orders documented in this encounter Plan of Treatment Upcoming Encounters Date Type Department Care Team (Late st Contact Info) Description 06/16/2024 4:00 PM EDT Office Visit Nephrology [place] [phone] Betzaida Cope APRN [facility] [place] [address] 06/23/2024 2:00 PM EDT Appointment Non-Invasive [place] [phone] Owen Correia MD [facility] [place] [address] documented as of this encounter Results * MRI Knee wo [...] resident's interpretation and agree with the findings, Vasquez Santos MD at 10/13/2023 5:33 PM Thank you for letting us participate in the care of this patient. ??If you are a health care provider and have any questions regarding this report, please contact the number below. ??For patients who have questions please contact the health wound care specialist that requested your imaging first. ? Electronically signed by: Vasquez Santos MD, [facility] ([phone]), at 10/13/2023 5:33 PM Narrative 10/13/2023 5:33 [...] patients who have questions please contactthe health wound care specialist that requested your imaging first. Rony Gr MD IMG MRI ORDERABLES documented in this encounter Visit Diagnoses Diagnosis Chronic pain of left knee Pain in joint, lower leg Chronic pain of left knee Pain in joint, lower leg documented in this encounter Care Teams Estimator Project Manager Relationship Specialty Start Date End Date Andi Thomas MD [facility] GENERAL [place] [address] PCP - General General Internal Medicine 03/01/22 documented as of this encounter
--- OUTSIDE RECORDS SUMMARY | 2024-06-09 02:53 | XMS_ITS | Encounter Summary ---
Author Organization [facility] Address [address] [place] [address] Care Team Providers Care Podiatric Foot And Ankle Specialist Name Role Phone Unavailable Primary Care Provider Unavailabl e Encounter Details Date Type Department Care Team (Late st Contact Info) Description 04/23/2022 Lab Requisition [facility] Pathology & Laboratory Medicine - [facility] [address] [place], [place] [phone] Outr Resulting Lab, Provider Social History Tobacco [...] 1/2 ANTIGEN AND ANTIBODY, 4TH GENERATION Routine 04/23/2022 7:37 EDT documented in this encounter Results * HIV 1/2 ANTIGEN AND ANTIBODY, 4TH GENERATION (04/23/2022 7:37 EDT) HIV 1 and 2 Antibody/p24 Antigen, 4th Generation Negative Negative 04/24/2022 10:27 EDT [facility] Comment:If acute HIV-1 infec tion is suspected in a high risk patient, submit plasma specimen for HIV-1 RNA quantitation test. Blood VENOUS BLOOD / Unknown 04/23/2022 7:37 EDT 04/23/2022 17:18 EDT Narrative [facility] - 04/24/2022 10:27 EDT Fourth Generation assay performed on the [employer] XPT. Provider Outr Resulting Lab IMMUNOLOGY A ND SEROLOGY ORDERABLES [facility] [address] [place] [address] documented in this encounter Visit Diagnoses Not on filedocumented in this encounter
--- OUTSIDE RECORDS SUMMARY | 2024-06-09 02:53 | XMS_ITS | Encounter Summary ---
Author Organization [facility] Address [facility] [place] [address] Care Team Providers Care Quality Assurance Engineer Name Role Phone Andi Thomas MD Primary Care Provider [phone] Encounter Details Date Type Department Care Team (Late st Contact Info) Description 11/24/2023 Telephone [place] [phone] Jj, VAL Fernández [facility] [place] [address] Social History Tobacco Use Types Packs/Day Years [...] in a penitentiary (including now)? No 04/11/2022 Sex and Gender Information Value Date Recorded Sex Assigned at Not on file Gender Identity Not on file Sexual Orientation Not on file documented as of this encounter Miscellaneous Notes * Telephone Encounter - Patsy Hong - 11/24/2023 4:11 PM EDT Reached out to Moshe once more through his work number. I was able to get in touch with him. He states his normal resting HR is about 60, but it was double at 120. He is feeling a cat purring/motor like feeling at the center of his torso up to his chest. It's not painful, but it's just a sensation of vibration like a motor. He doesn't feel quite as lucid and present as he normally doeswith a slight headache. Wants some advice. Reviewed with Dr. Gr who recommended further workup with PCP or urgent care for his symptoms prior to moving forward with surgery. He is going to follow up with PCP office by calling adam. Pending further workup prior to surgery on 11/26/23. I will follow up with Moshe tomorrow for an update. * Telephone Encounter - Patsy Hong - 11/24/2023 3:49 PM EDT Received message from OR schedulers who got a call from [facility] nursing. Said that when she called him he told her he was having palpitations. She's unsure if the patient should have surgery on Wednesday ,she said he also talks very slow and is hard to understand. LVM for Moshe on mobile number for call back. No answer on work number. Called spouse (emergency contact) and spoke to Katrina. She reports that he woke up 11/24/23 AM with palpitations and heart racing. He did go to work. He has had this happen before and was seen at [facility]. Anxiety due to chest pain and possible pinched nerve in back. She is going to email my direct phone number to Moshe for him to call for further discussion. documented in this encounter Plan of Treatment Upcoming Encounters Date Type Department Care Team (Late st Contact Info) Description 06/16/2024 4:00 PM EDT Office Visit Nephrology Hypertension at [place] [phone] Betzaida Cope APRN [facility] [place] [address] 06/23/2024 2:00 PM EDT Appointment Non-Invasive Cardiology Lab [place] [phone] Owen Correia MD [facility] [place] [address] documented as of this encounter Visit Diagnoses Not on filedocumented in this encounter Care Teams Quality Assurance Engineer Relationship Specialty Start Date End Date Andi Thomas MD [facility] [place] [address] PCP - General General Internal Medicine 03/01/22 documented as of this encounter
--- OUTSIDE RECORDS SUMMARY | 2024-06-09 02:53 | XMS_ITS | Encounter Summary ---
[place] [address] Care Team Providers Care Member Service Representative Name Role Phone Andi Thomas MD Primary Care Provider [phone] Reason for Referral * Diagnostic Test (Routine) - Authorized Specialty Diagnoses / Procedures Referred By Contac t Referred To Contact Cardiology Diagnoses Primary hypertension Aortic dilatation Procedures Echocardiogram Transthoracic Owen Correia MD [facility] [place] [address] [facility] [place] [address] Referral ID Status Reason Start Date Expiration Date Visits Requested Visits Authorized [id number] Authorized Specialty Service Requested 06/07/2024 08/05/2024 1 1 Encounter Details Date Type Department Care Team (Late st Contact Info) Description 01/24/2024 4:20 PM EDT Office Visit Cardiology at [address] [address] Owen Correia MD [facility] [place] [address] Primary hypertension; Aortic dilatation Social History Tobacco Use Types Packs/Day Years [...] place to sleep or slept in a nursing home (including now)? No 04/11/2022 DH IPV Inpatient [...] Pulse 56 01/24/2024 4:04 PM EDT Temperature - - Respiratory Rate - - Oxygen Saturation 100% 01/24/2024 4:04 PM EDT Inhaled Oxygen Concentration - - Weight 61.7 kg (136 lb) 01/24/2024 4:04 PM EDT Height 170.2 cm (5' 7) 01/24/2024 4:04 PM EDT Body Mass Index 21.3 01/24/2024 4:04 PM EDT documented in this encounter Progress Notes * Owen Correia MD - 01/24/2024 4:20 PM EDT HPI: Moshe Castillo is a 63 y.o. 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 Previous patient of Dr. Phan'margo. Comes in for follow up today. Creatinine @ 1.37cm on november 2023. PMHX Patient Active Problem List Diagnosis Code Nevus D22.9 Family history of malignant melanoma Z80.8 Elevated serum creatinine R79.89 Renal artery stenosis I70.1 Atypical chest pain R07.89 Lung nodule, solitary R91.1 HTN (hypertension) I10 Stage 3a chronic kidney disease (CKD) N18.31 MEDS: Current Outpatient Medications on File Prior to [...] every 6 hours as needed for Pain. oxyCODONE (Roxicodone) 5 mg tablet Take 1 tablet by mouth every 6 hours as needed for Pain. (Patient not taking: Reported on 01/24/2024) 10 tablet 0 No current facility-administered medications on file prior to visit. reviewed ROS Negative for blood in stool or urine. No fevers or chills. No recent syncope. Otherwise all other systems were reviewed and found to be negative. Physical Examination Patient Vitals for the past 24 hrs: Pulse BP SpO2 01/24/24 1604 56 125/79 100 % General: no acute distress Behavioral: Alert and oriented to person place and time Heent: Cranial nerves 2-12 grossly intact, JVP not elevated, no carotid bruits CV: RRR normal s1 and s2 without murmurs present Lungs: CTA bilaterally Abd: soft, nt, bs positive, no pulsatile masses Extrem: no lower extremity edema Pulses: radial Pulses = bilaterally Skin: warm, dry without rashes Neuro: muscle strength grossly = bilaterally Assessement and Plan: 63 year old male with left renal infarct and stenosis coming in for follow up today. Hx of ascending aorta enlargement @ 4.1cm. Hx of renal stenosis s/p infarction HTN: Continue medical management Hx of ascending aorta dilation: check echocardiogram documented in this encounter Plan of Treatment Upcoming Encounters Date Type Department Care Team (Late st Contact Info) Description 06/16/2024 4:00 PM EDT Office Visit Neph[place] [phone] Betzaida Cope, [facility] [place] [address] 06/23/2024 2:00 PM EDT Appointment Non-[place]vasive [place] [phone] Owen Correia MD [facility] [place] [address] Scheduled Orders Name Type Priority Associated Diagnoses Order Schedule Echocardiogram Transthoracic Echocardiography Routine Primary hypertension Aortic dilatation Expected: 01/24/2024, Expires: 01/23/2025 Lipid Panel (Reflex Direct LDL) Lab Routine Primary hypertension Aortic dilatation Expected: 02/24/2024, Expires: 01/23/2025 documented as of this encounter Visit Diagnoses Diagnosis Primary hypertension Unspecified essential hypertension Aortic dilatation Aortic ectasia, unspecified site documented in this encounter Care Teams Member Service Representative Relationship Specialty Start Date End Date Andi Thomas MD [facility] GENER[facility] [place] [address] PCP - General General Internal Medicine 03/01/22 documented as of this encounter
--- OUTSIDE RECORDS SUMMARY | 2024-06-09 02:53 | XMS_ITS | Encounter Summary ---
[place] [address] Care Team Providers Care Arbor Press Operator Name Role Phone Andi Thomas MD Primary Care Provider [phone] Reason for Visit * Reason Comments Establish Care 11-26-23 LEFT KNEE SC OPE Encounter Details Date Type Department Care Team (Late st Contact Info) Description 12/08/2023 12:40 PM EDT Office [place] [address] Clinic, Dr Gr Team None Acute medial meniscus tear of left knee, sequela Social History Tobacco Use Types Packs/Day Years [...] place to sleep or slept in a jail (including now)? No 04/11/2022 DH IPV Inpatient [...] Progress Notes * Sotero Gr MD - 12/08/2023 12:40 PM EDT Patient ID: Moshe Nino Anna Chief Complaint Patient presents with [facility] 11-26-23 LEFT KNEE SCOPE HPI Overall doing well. No issues and is recovering nicely. Happy with how things are going. Patient Active Problem List Diagnosis Code Nevus [...] Prior to Visit Medication Sig Dispense Refill oxyCODONE (Roxicodone) 5 mg tablet Take 1 tablet by mouth every 6 hours as needed for Pain. 10 tablet 0 aspirin EC 81 mg EC (DR) tablet [...] file prior to visit. Review of Systems Objective There were no vitals taken for this visit. Physical Exam LEFT LOWER EXTREMITY No calf tenderness Normal gait Wounds well healed No effusion Assessment & Plan Doing well S/P Partial meniscectomy LEFT KNEE Discussed findings Reviewed his intra-op images Knows to call with questions RTC PRN documented in this encounter Plan of Treatment Upcoming Encounters Date Type Department Care Team (Late st Contact Info) Description 06/16/2024 4:00 PM EDT Office Visit Neph[place] [address] Betzaida Cope, HVAC REFRIGERATION TECHNICIAN [facility] [place] [address] 06/23/2024 2:00 PM EDT Appointment Non-Invasive Cardiology Lab [place] [phone] Owen Correia MD [facility] [place] [address] documented as of this encounter Visit Diagnoses Diagnosis Acute medial meniscus tear of left knee, sequela documented in this encounter Care Teams Arbor Press Operator Relationship Specialty Start Date End Date Andi Thomas MD [facility] [place] [address] PCP - General General Internal Medicine 03/01/22 documented as of this encounter
--- OUTSIDE RECORDS SUMMARY | 2024-06-09 02:53 | XMS_ITS | Encounter Summary ---
Author Organization [facility] [place] [address] Care Team Providers Care Certified Scrub Tech Name Role Phone Andi Thomas MD Primary Care Provider [phone] Encounter Details Date Type Department Care Team (Late st Contact Info) Description 04/27/2024 Telephone [place] [address] Anitra Sherman Social History Tobacco Use Types Packs/Day Years [...] in a long-term (including now)? No 04/11/2022 IPV Inpatient Questions [...] encounter Miscellaneous Notes * Telephone Encounter - Anitra Sherman - 04/27/2024 12:19 PM EDT LM for patient to call and schedule a follow up appointment. Will send out reminder letter documented in this encounter Plan of Treatment Upcoming Encounters Date Type Department Care Team (Late st Contact Info) Description 06/16/2024 4:00 PM EDT Office Visit [place] [phone] [facility] [place] [address] 06/23/2024 2:00 PM EDT Appointment Non-Invasive [place] [address] [facility] [place] [address] documented as of this encounter Visit Diagnoses Not on filedocumented in this encounter Care Teams Certified Scrub Tech Relationship Specialty Start Date End Date Andi Thomas MD [facility] [place] [address] PCP - General General Internal Medicine 03/01/22 documented as of this encounter
--- OUTSIDE RECORDS SUMMARY | 2024-06-09 02:53 | XMS_ITS | Encounter Summary ---
[place] [address] Care Team Providers Care Auto Care Center Manager Name Role Phone Andi Thomas MD Primary Care Provider [phone] Encounter Details Date Type Department Care Team (Late st Contact Info) Description 12/08/2023 1:40 PM EDT Laboratory Appointment Lab [address] [place] [phone] Social History Tobacco Use Types Packs/Day Years [...] in a usp (including now)? No 04/11/2022 IPV Inpatient Questions [...] PM EDT Office Visit Neph[place] [address] Betzaida Cope, [facility] [place] [address] 06/23/2024 2:00 PM EDT Appointment Non-[place] [address] Owen Correia MD [facility] [place] [address] documented as of this encounter Visit Diagnoses Not on filedocumented in this encounter Care Teams Auto Care Center Manager Relationship Specialty Start Date End Date Andi Thomas MD [facility] GENERAL INTERNAL [place] [address] PCP - General General Internal Medicine 03/01/22 documented as of this encounter
--- OUTSIDE RECORDS SUMMARY | 2024-06-09 02:53 | XMS_ITS | Encounter Summary ---
Author Organization [facility] [place] [address] Care Team Providers Care Fruit Or Nut Farm Worker Name Role Phone Andi Thomas MD Primary Care Provider [phone] Encounter Details Date Type Department Care Team (Late st Contact Info) Description 12/10/2023 Telephone [place] [address] Shady Bah Social History Tobacco Use Types Packs/Day Years [...] place to sleep or slept in a prison (including now)? No 04/11/2022 DH IPV Inpatient [...] encounter Miscellaneous Notes * Telephone Encounter - Shady Bah - 12/10/2023 11:31 AM EDT 1st attempt to contact Pt at Reason for call: OV to discuss cardiovascular prevention. What type of visit is needed: OV - with PCP [x] Left Message for Pt to return call to the Office [x] PSC ok to schedule documented in this encounter Plan of Treatment Upcoming Encounters Date Type Department Care Team (Late st Contact Info) Description 06/16/2024 4:00 PM EDT Office Visit [place] [address] Betzaida Cope APRN [facility] [place] [address] 06/23/2024 2:00 PM EDT Appointment Non-[place] [address] Owen Correia MD [facility] [place] [address] documented as of this encounter Visit Diagnoses Not on filedocumented in this encounter Care Teams Fruit Or Nut Farm Worker Relationship Specialty Start Date End Date Andi Thomas MD [facility] [place] [address] PCP - General General Internal Medicine 03/01/22 documented as of this encounter
--- OUTSIDE RECORDS SUMMARY | 2024-06-09 02:53 | XMS_ITS | Encounter Summary ---
[place] [address] Care Team Providers Care Film Historian Name Role Phone Andi Thomas MD Primary Care Provider [phone] Reason for Visit * Auth/Cert (Routine) Specialty Diagnoses / Procedures Referred By Contjanay t Referred To Contact Diagnoses Acute medial meniscus tear of left knee, sequela Mensicus tear Procedures PRO KNEE SCOPE, MED/LAT MENISECTOMY ARTHROSCOPY KNEE, MENISCECTOMY SINGLE W/ SHAVING (WRVU 7.03) Rony Walters MD [facility] [place] [address] [facility] [place] Referral ID Status Reason Start Date Expiration Date Visits Re quested Visits Authorized [id number] 1 1 Encounter Details Date Type Department Care Team (Latest Contact Info) Description 11/26/2023 11:22 AM EDT - 11/26/2023 3:08 PM EDT Hospital Encounter Outpatient [place] [address] Rony Walters MD [facility] [place] [address] Acute medial meniscus tear of left knee, sequela Discharge Disposition: Home Social History Tobacco Use [...] Sign Reading Time Taken Comments Blood Pressure 111/77 11/26/2023 2:30 PM EDT Pulse 53 11/26/2023 2:30 PM EDT Temperature 36 ??C (96.8 ??F) 11/26/2023 1:55 PM EDT Respiratory Rate 16 11/26/2023 2:30 PM EDT Oxygen Saturation 100% 11/26/2023 2:30 PM EDT Inhaled Oxygen Concentration - - Weight 61.2 kg (135 lb) 11/26/2023 11:48 AM EDT Height 170.2 cm (5' 7) 11/26/2023 11:48 AM EDT Body Mass Index 21.14 11/26/2023 11:48 AM EDT documented in this encounter Discharge Instructions * Discharge Instructions* Ida Goldberg RN - 11/26/2023 11:57 AM EDT At 12PM you received 975 mg of acetaminophen- Your next dose should not be taken before 8 hours have passed or as advised by your provider. Next dose not before- 8PM You should not take more than a total of 3000 mg of acetaminophen in a 24 hour period. General Anesthesia Discharge Instructions Go home and rest. You may be sleepy for several hours. Take it easy as sudden position changes may cause nausea and/or dizziness. Use caution on stairs. Do not smoke if you are alone. Follow a light to regular diet as tolerated today. If nausea occurs, start with clear liquids, and progress slowly to a regular diet. Do not drive, operate machinery, drink alcoholic beverages or make any legal decisions after havinggeneral anesthesia. The medications given change your reaction time and alter your judgement. IV site -- slight redness is normal, you can use warm compresses. If tenderness and redness increases or foul drainage occurs, please contact your M.D. Patients who have had endotracheal tubes/LMA (tubes used by the anesthesia staff to ensure a safe airway during your operation) may have a sore throat. This is normal and cold liquids or soothing lozenges will help ease this discomfort. Narcotic pain medications can cause constipation, please ask the surgeons office what they recommend for prevention of this. Some non-pharmaceutical means of constipation prevention include increasing intake of fluids, eating more fruits and vegetables as well as fruit juices. If you are uncomfortable and/or unable to urinate within 8 hours of discharge and it is before 5 pm, call your physician. If it is after 5pm go to the closest emergency room or call the hospital electronic typesetting machine operator at [phone] and ask for physician fire battalion chief covering for your physician. Questions or problems after 5pm or on a weekend: Call the [facility] electronic typesetting machine operator at and ask for the physician fire battalion chief covering for your doctor. You received an nsaid medication at 1:45pm. Your next dose should not be taken before 7:45pm today. At 12pm you received 975 mg of acetaminophen- Your next dose should not be taken before 8 hours have passed or as advised by your provider. Next dose not before- 8pm. You should not take more than a total of 3000 mg of acetaminophen in a 24 hour period. * Patient Instructions* Jj, VAL Fernández - 11/26/2023 1:42 PM EDT Images from the original note were not included. DISCHARGE INSTRUCTIONS FOR KNEE ARTHROSCOPY Activity: Please keep affected extremity elevated and ice as needed. WEIGHT BEARING: as tolerated with crutches unless otherwise instructed. Do not drive until instructed to do so by your Surgeon. Pain Medication Protocol: Oxycodone 5 mg every 4 hours as needed. Take this medication with a small amount of food to help prevent nausea. This medication is a short acting narcotic pain medication. Hync-axb-wwuhphs Tylenol (acetaminophen) should be taken in addition to narcotic. This will allow the narcotic to work more effectively, and may make it easier to discontinue the narcotic sooner. Follow the instructions on the Tylenol package for dosage and frequency. Do not exceed 3000mg acetaminophen per day. Anti-Coagulation Plan: 1) Aspirin - You have been discharged on enteric-coated Aspirin 81 mg by mouth twice daily. Continue this for 2 weeks from surgery or until your mobility improves and surgeon instructs you to stop. Take with meals to minimize gastrointestinal (stomach) irritation. This is to help prevent a blood clot. Post-operative constipation: Constipation is common after surgery. Drinking plenty of water is important in helping to prevent this. An cjct-suy-qktnhji stool softener can also help prevent or treat constipation. Colace 100mg tablets can be obtained at most pharmacies and can be taken 2 - 3 times a day. The pain medication may also cause nausea. If you have significant nausea, we can provide a prescription for an anti-nausea medication. Cryotherapy: Ice is a highly effective anti-inflammatory in the postoperative period. It helps reduce inflammation and pain. Apply an ice pack to the surgical area for 20-30 minutes every 1-[address]. [address] ice directlyon the skin as this can cause frostbite; place a towel/rag between the ice and skin. Specific cooling machines have been designed to help with icing. Your physical therapist may use this during therapy sessions Dressing: The compression dressing helps control swelling and should remain on your leg for the first 48 hours after surgery. You may adjust it as needed to keep it neat and in good position. After the first 48 hours you can remove all the dressings. After this simply cover your incisions with small sterile dressings or band aids. Limiting swelling: Ice, elevation and compression are effective ways to control both swelling and pain. When you are not up and about, please keep your knee elevated as much as possible for the first 48 hours after surgery. Ice 20 minutes at a time, 3-4 times daily. Ice and elevation can be helpful after exercise as well. Discomfort: You will be given a prescription for pain medication. Many of you will find that your pain is minimal and is controlled with over the counter anti-inflammatory medications (e.g. ibuprofen) or Tylenol. Because it is difficult to predict who will and who won???t have discomfort and when, we urge you to obtain keep the prescription and have it available if needed. Please let us know if the discomfort persists or becomes more severe after the first few days. Showering: You may shower after 48 hours. Remove the initial dressing, take your shower, but do not scrub or soak your knee. Pat the area dry and place clean dressings. Activity: You may bear weight as tolerated with crutches for the first 2-3 days. Discontinue crutches when comfortable and able to walk without a limp. If swelling or discomfort increases it is okay to return to crutch use until symptoms improve and you are able to walk comfortably. When to call: Please call the clinic if you develop fever, greater than 100F, chills, night sweats, nausea, vomiting, discharge from your incision, numbness/tingling in your foot on your surgical side. Also call with any other questions or concerns. Exercise Program: Below are the recommended exercises to restore motion to your knee. Walking and stationary biking are excellent early phase exercises after knee arthroscopy. Listen to your knee and slow down if you experience swelling or pain in the knee. Call our office if you develop: Fever greater than 100.5 Severe nausea or vomiting Increasing pain that is not controlled by pain medications Increasing redness, swelling, or drainage from incisions Change in sensation Future Appointments Date Time Provider Department Center 12/08/2023 3:20 PM Clinic, Dr Walters Team [facility] [address] [place] [address] If you have questions or concerns please contact our [facility] [place] Wednesday through Wednesday, 8 AM - 5 PM, at . If it is after 5 PM or on the weekend, please call and ask to speak with the Orthopedic resident on-call. documented in this encounter Medications at Time [...] 05/25/2023 06/02/2024 documented as of this encounter Progress Notes * Ida Goldberg RN - 11/26/2023 3:08 PM EDT IV removed, site benign. Discussed pain management with patient and spouse, pain tolerable (09/15). Pt has all belongings and supplies needed. Patient received discharge summary and prescriptions. These were reviewed with his , she verbalizes understanding of AVS. All questions answered. Pt encouraged to call with questions or concerns. Pt discharged to home with family. Patient ambulated to car for discharge accompanied by [facility] staff member. * Misa Flores RN - 11/24/2023 2:06 PM EDT Mr. Castillo left a phone massage asking to be advised, what to do? As he explained he had heart palpitations all last night, he did not seek medical help. I have forwarded this to Orthopedics SchedulerKelchapincito Zarate & to Anesthesia Dr Koch documented in this encounter H&P Notes * Rony Walters MD - 11/26/2023 1:10 PM EDT Patient Name: Moshe Castillo Patient Age: 63 y.o. Birthdate: 1960 Admit date: 11/26/2023 Attending Physician: Rony Walters MD See outp[atint note for full details. Pain in the left knee consistent with meniscus path. Patient Active Problem List Diagnosis Code Nevus D22.9 Family history of malignant melanoma Z80.8 Elevated serum creatinine R79.89 Renal artery stenosis I70.1 Atypical chest pain R07.89 Lung nodule, solitary R91.1 HTN (hypertension) I10 Stage 3a chronic kidney disease (CKD) N18.31 Allergies Allergen Reactions Amlodipine Other (See Comments) CHEST DISCOMFORT Pseudafen [Pseudoephedrine Hcl] Other (See Comments) Heart races No current facility-administered medications on file prior to encounter. Current Outpatient Medications on File Prior to Encounter Medication Sig Dispense Refill aspirin EC 81 [...] every 6 hours as needed for Pain. EXAM: Blood pressure 135/90, pulse 60, temperature 36.9 ??C (98.4 ??F), temperature source Temporal, resp. rate 16, height 170.2 cm (5' 7), weight 61.2 kg (135 lb), SpO2 100%. GEN: WDWN NAD PUL: CTA CAR: RRR ABD: SOFT EXT: SKIN INTACT A/P: INTERNAL DERANGEMENT LEFT KNEE PROCEED WITH ARTHROSCOPY. The risks and benefits of the procedure were discussed with the patient. We discussed: bleeding, infection, blood clots, scar formation, persistent pain, stiffness, bursitis, fracture, nerve palsy, compartment syndrome, skin numbness, need for further surgery, prominent hardware, anesthetic risk and/or medical complications. The need for participation in PT and additional hard work on his/her ownwas discussed. documented in this encounter Miscellaneous Notes * Op Note - Rony Walters MD - 11/26/2023 1:30 PM EDT [facility] [place] [place] Patient Name: Moshe Castillo : [id number] MR#: [id number] Case Date: 11/26/2023 Surgeon: Surgeon(s) and Role: * Rony Walters MD - Primary * Jj, VAL Fernández - Physician Car Blocker Preoperative diagnosis: Mensicus tear Postoperative diagnosis: MEDIAL Mensicus tear Procedure(s) (LRB): ARTHROSCOPY KNEE, MENISCECTOMY SINGLE W/ SHAVING (WRVU 7.03) (Left) Modifiers: : PA/ADVISORY INTERN assistant professor of sociology surgeon (no qualified resident available) Anesthesia: General Estimated Blood Loss: 5 cc Specimens removed during surgery: None Drains: * No LDAs found * Operative Findings: Suprapatellar pouch: SYNOVITIS Medial and lateral gutters: SYNOVITIS Patellofemoral Joint: Patella: GRADE II Trochlea: GRADE II Lateral Compartment: Meniscus: INTACT Femoral condyle: GRADE I Tibial plateau: GRADE I Medial Compartment: Meniscus: COMPLEX POSTERIOR HORN TEAR Femoral condyle: GRADE II Tibial plateau: GRADE II Interconylar notch: INTACT NO TOURNIQUET USED INDICATIONS: The patient is a 3 y.o. male who presented with symptoms, imaging, and exam findings consistent with a meniscal tear. Being refractory to non-operative measures, the patient elected to undergo surgical intervention. DESCRIPTION OF PROCEDURE: After the patient was properly identified in the pre-operative holding area, the patient was taken to the operating room where a clinical time out was held prior to proceeding with the procedure. Pre-operative antibiotics were given within one hour of the procedure. A pneumatic tourniquet was not applied. The knee was injected with 60 cc of a 1:250,000 epinephrine solution after sterile prep with chloraprep. The patient's lower extremity was prepped and draped in the sterile fashion. We began by making a standard anterior lateral portal. We entered the patellofemoral joint with thearthroscopic cannula. A complete arthroscopic exam was performed in a standard fashion and findingswere as noted above. A standard anterior medial portal was then made with a spinal needle and a #15blade. We then inserted a probe to inspect the medial meniscus. We then inserted an arthroscopic punch and debrided the medial mensicus followed by a 3.5 mm full radius shaver. The mensicus was debrided back to a stable base. The notch was then visualized followed by the lateral compartment. The knee was then irrigated. Portal sites were closed with 4.0 Monocryl. A sterile dressing was then applied consisting of xeroform, gauze, Kerlix, followed by an reshma wrap. The patient was then extubated, transferred to a stretcher, then brought to the Same Day Surgery holding area having tolerated the procedure well. There appeared to be no operative complications and all sponge and needle counts were correct at the end of the case. Post-operative plan: Weight bear as tolerated with range of motion as tolerated. Crutches for comfort. Aspirin 81mg PO BID for 2 weeks for DVT prophylaxis until fully ambulatory. Follow-up in 10-14 days for hospital check. Surgical Closure: Primary Closure - skin incision is completely closed without any wires, campbell, drains or other devices Disposition: awakened from anesthesia, extubated and taken to the recovery room in a stable condition, having suffered no apparent untoward event. Condition: doing well without problems Surgical Infection Prevention Bundle Used? N/A Attestation: Case Date: 11/26/2023 I performed this procedure without the involvement of a resident. RONY WALTERS MD 11/26/2023 documented in this encounter Plan of Treatment Upcoming Encounters Date Type Department Care Team (Late st Contact Info) Description 06/16/2024 4:00 PM EDT Office Visit Neph[place] [phone] Betzaida Cope APRN [facility] [place] [address] 06/23/2024 2:00 PM EDT Appointment Non-Invasive [place] [phone] Owen Correia MD [facility] [place] [address] documented as of this encounter Procedures Procedure Name Priority Date/Time Associated Diagnosis Comments Knee Scope, Med/Lat Menisectomy (08820) 11/26/2023 1:08 PM EDT Acute medial meniscus tear of left knee, sequela ARTHROSCOPY KNEE, MENISCECTOMY SINGLE W/ SHAVING Routine 11/26/2023 7:29 AM EDT Acute medial meniscus tear of left knee, sequela documented in this encounter Visit Diagnoses Diagnosis Acute medial meniscus tear of left knee, sequela documented in this encounter Administered Medications Inactive Administered Medications - up to 3 most recent administrations Medication Order MAR Action Action Date Dose Rate Site acetaminophen (Tylenol) tablet 975 mg 975 mg, Oral, ONCE, 1 dose, On Wed11/26/23 at 1145, Administer with a SIP of water only. Maximum dose of acetaminophen is 4,000 mg from all sources in 24 hours., Day of Surgery (Day of Procedure), Routine Given 11/26/2023 11:54 AM EDT 975 mg oxyCODONE (Roxicodone) tablet 5 mg 5 mg, Oral, ONCE PRN, 1 dose, Starting on Wed11/26/23 at 1342, Until Wed11/26/23 at 1711, Pain, Routine documented in this encounter Active and Recently Administered Medications Times are shown in EDT. Scheduled Medication Order 11/24/2023 11/25/2023 11/26/2023 acetaminophen (Tylenol) tablet 975 mg (COMPLETED) 975 mg, Oral, ONCE, 1 dose, On Wed11/26/23 at 1145, Administer with a SIP of water only. Maximum dose of acetaminophen is 4,000 mg from all sources in 24 hours., Day of Surgery (Day of Procedure), Routine 1154 (Given - Provid er: Ashwin Chu RN) ceFAZolin (Ancef) (100 mg/mL) injection solution 2 g (COMPLETED) 2 g, Intravenous, EVERY 4 HOURS, 1 [...] Procedure), Indication for (Active or Suspected): Prophylaxis 1317 (Given - Provid er: Nestor Augustin CRNA) Continuous Medication Order 11/24/2023 11/25/2023 11/26/2023 lactated ringers infusion (CANCELED) 1,000 mL, at 100 mL/hr, Intravenous, CONTINUOUS, Starting on Wed11/26/23 at 1145, Until Wed11/26/23 at 1510, Day of Surgery (Day of Procedure) 1305 (New Bag - Prov ider: Nestor Augustin CRNA)1333 (Anesthesia Volume Adjustment - Provider: Nestor Augustin CRNA)1346 (Anesthesia Volume Adjustment - Provider: Nestor Augustin CRNA) PRN Medication Order 11/24/2023 11/25/2023 11/26/2023 EPINEPHrine (Adrenalin) (1 mg/mL) injection (CANCELED) PRN, Starting on Wed11/26/23 at 1337, Until Wed11/26/23 at 1711, Intra-Operative (Intra-Procedure), Routine 1323 (Given - Provid er: Rony Walters MD - Comment: 0.25 mL epi in 50 mL injectable NS) oxyCODONE (Roxicodone) tablet 5 mg 5 mg, Oral, ONCE PRN, 1 dose, Starting on Wed11/26/23 at 1342, Until Wed11/26/23 at 1711, Pain, Routine documented in this encounter Care Teams Film Historian Relationship Specialty Start Date End Date Andi Thomas MD [facility] [place] [address] PCP - General General Internal Medicine 03/01/22 documented as of this encounter
--- OUTSIDE RECORDS SUMMARY | 2024-06-09 02:53 | XMS_ITS | Encounter Summary ---
Author Organization [facility] [place] [address] Care Team Providers Care Ferryboat Pilot Name Role Phone Andi Thomas MD Primary Care Provider Reason for Visit * Reason Comments Follow-up Encounter Details Date Type Department Care Team (Late st Contact Info) Description 09/15/2023 3:00 PM EST Office [place] [address] Andi Thomas MD [facility] GENERAL INTERNAL [place] [address] Healthcare maintenance; Left knee pain, unspecified chronicity Social History Tobacco Use Types Packs/Day Years [...] Sign Reading Time Taken Comments Blood Pressure 98/79 09/15/2023 2:56 PM EST Pulse 61 09/15/2023 2:56 PM EST Temperature - - Respiratory Rate 16 09/15/2023 2:56 PM EST Oxygen Saturation 99% 09/15/2023 2:56 PM EST Inhaled Oxygen Concentration - - Weight 61.2 kg (135 lb) 09/15/2023 2:56 PM EST r eported Height 170 cm (5' 6.93) 09/15/2023 2:56 PM EST reported Body Mass Index 21.19 09/15/2023 2:56 PM EST documented in this encounter Progress Notes * Andi Thomas MD - 09/15/2023 3:00 PM EST General Internal Medicine Follow Up Note Patient Active Problem List Diagnosis Code Nevus D22.9 Family history of malignant melanoma Z80.8 Elevated serum creatinine R79.89 Renal artery stenosis I70.1 Atypical chest pain R07.89 Lung nodule, solitary R91.1 HTN (hypertension) I10 Stage 3a chronic kidney disease (CKD) N18.31 HPI: Moshe Castillo is a 62 y.o. 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 We last saw him for his knee pain on 04/2023. Since then he has trialed physical therapy without any benefit. Reports there are random, sporadic, episodic distal thigh proximal patellar throbbing pain that onsets with 8 out of 10 in severity. When he walks there is a sore dull pain 4 out of 10 in severity. He is still exercising regularly now using machine to avoid weightbearing on the leg. Recent knee x-ray was not very conclusive. He was seen by orthopedics this morning and they recommended MRI and continuing PT. 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 No facility-administered encounter medications on file as of 09/15/2023. Allergies Allergen Reactions Amlodipine Other (See Comments) CHEST DISCOMFORT Pseudafen [Pseudoephedrine Hcl] Other (See Comments) Heart races Physical Exam Patient Vitals for the past 24 hrs: Pulse Resp BP SpO2 09/15/23 1456 61 16 98/79 99 % Constitutional/General: well-appearing, NAD Lungs: CTA b/l no W/R/C Heart: RRR S1S2 no M/R/G MSK: Left knee without swelling, erythema, extra warmth. No tenderness to palpation of the knee. Homer is still positive Assessment Orders Placed This Encounter Procedures HIV Screen, 4th Generation ([facility]/CGP/APD/[facility]) Lipid Panel (Reflex Direct LDL) 1. Healthcare maintenance Plan: Moshe Castillo is a 62 y.o. 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 Patient is currently still reporting left knee pain. He was last seen on 04/2023. Since then he hastrialed 5 months of physical therapy, ice, wraps, ibuprofen without efficacy. Examination is still positive for Homer. Recent x-ray was inconclusive. He has now seen orthopedics. They agreed on obtaining an MRI of his knee. In the meantime we advised patient to use Tylenol as needed and can add ibuprofen if symptoms worsen. However we did discuss for him to come back to clinic if his symptoms worsen. Patient has a 4.1 cm ascending aorta dilation. He was previously following with cardiology for this. Last visualization was back in 2020 which was stable. He currently does not have any worsening symptoms. Blood pressure is at goal. We can consider repeat imaging during next visit since he will be heading the 3 to 5-year unqiue for monitoring as recommended by cardiology. #Left knee pain concern for left meniscal tear - Obtain MRI - Continue to follow with orthopedics - Continue PT - Tylenol and ibuprofen as needed - Ice/heat as needed #Health maintenance - Lipid panel - HIV screen Andi Thomas MD 09/15/2023 * Zahraa Hansen MD - 09/15/2023 3:00 PM EST The case was discussed in person at the time of the visit or immediately after the visit. The assessment and plan were formulated in discussion with me, and I agree with them as documented. I have reviewed the history, physical exam, assessment and plan with the resident. Major issues discussed today: Follow up for left anterior knee/distal thigh pain, not improved with PT. Xray with possible old patellar fracture. Seen in ortho today, continued concern for possible meniscal tear Plan: MRI knee; conservative management in interim, use tylenol as first line pain control HIV and lipid screening documented in this encounter Plan of Treatment Upcoming Encounters Date Type Department Care Team (Late st Contact Info) Description 06/16/2024 4:00 PM EDT Office Visit Neph[place] [phone] Betzaida Cope APRN [facility] [place] [address] 06/23/2024 2:00 PM EDT Appointment Non-[place] [address] Owen Correia MD [facility] [place] [address] documented as of this encounter Results * Lipid Panel (Reflex Direct LDL) (12/08/2023 1:56 PM EDT) [facility] Cholesterol, Total 202 mg/dL [facility] Comment: Desirable: ? <200 mg/dL Borderline High: 200-239 mg/dL Higher: ?>gk=144 mg/dL Triglyceride 90 mg/dL [facility] Comment: Normal: ?<150 mg/dL Borderline High: 150-199 mg/dL High: ?200-499 mg/dL Very High: ? >sb=758 mg/dL HDL Cholesterol 52 mg/dL [facility] Comment: Females: High Risk: <50 mg/dL Males: High Risk: <40 mg/dL LDL Cholesterol 132 mg/dL [facility] Comment: Desirable: ? <100 mg/dL Above Desirable: 100-129 mg/dL Borderline High: 130-159 mg/dL High: ?160-189 mg/dL Very High: ? >kb=277 mg/dL Lipid Interpretation See Note [facility] Comment: It is important [...] ACC/AHA Guidelines (most recently Toma et al. [facility] 06/09/22): For individuals with atherosclerotic cardiovascular disease (ASCVD)or LDL >rp=112 mg/dL, use a high-intensity statin (40-80 mg [...] In Lab Zahraa Hansen MD CHEMISTRY ORDERABLES Performing Organization Address [facility] Co de Phone Number [facility] [place] [address] * HIV Screen, 4th Generation ([facility]/CGP/APD/[facility]) (12/08/2023 1:56 PM EDT) HIV Ab/Ag Screen Negative Negative [facility] Comment: This 4th Generation [...] HIV Comment Low Risk of HIV Infection [facility] Blood 12/08/2023 1:56 PM EDT 12/08/2023 2:02 PM EDT Narrative Resulting Agency Comment Spec In Lab Zahraa Hansen MD CHEMISTRY ORDERABLES Performing Organization Address [facility] Co de Phone Number [facility] [place] [address] documented in this encounter Visit Diagnoses Diagnosis Healthcare maintenance Routine general medical examination at a health care facility Left knee pain, unspecified chronicity documented in this encounter Care Teams Ferryboat Pilot Relationship Specialty Start Date End Date Andi Thomas MD [facility] GENER[facility] INTERNAL [place] [address] PCP - General General Internal Medicine 03/01/22 documented as of this encounter
--- OUTSIDE RECORDS SUMMARY | 2024-06-09 02:53 | XMS_ITS | Encounter Summary ---
[place] [address] Care Team Providers Care Ampoule Washing Machine Operator Name Role Phone Andi Thomas MD Primary Care Provider [phone] Reason for Visit * Auth/Cert (Routine) Specialty Diagnoses / Procedures Referred By Contjanay t Referred To Contact Diagnoses Acute medial meniscus tear of left knee, sequela Mensicus tear Procedures PRO KNEE SCOPE, MED/LAT MENISECTOMY ARTHROSCOPY KNEE, MENISCECTOMY SINGLE W/ SHAVING (WRVU 7.03) Rony Walters MD [facility] [place] [address] [facility] Referral ID Status Reason Start Date Expiration Date Visits Re quested Visits Authorized [id number] 1 1 Encounter Details Date Type Department Care Team (Late st Contact Info) Description 11/26/2023 2:25 PM EDT - 11/26/2023 3:45 PM EDT Surgery [place] [address] Rony Walters MD [facility] [place] [address] ARTHROSCOPY KNEE, MENISCECTOMY SINGLE W/ SHAVING (WRVU 7.03) Social History Tobacco Use Types Packs/Day Years [...] place to sleep or slept in a half-way (including now)? No 04/11/2022 DH IPV Inpatient [...] closest emergency room or call the hospital beam press operator at [phone] and ask for physician nonprofit financial controller covering for your physician. Questions or problems after 5pm or on a weekend: Call the [facility] beam press operator at and ask for the physician nonprofit financial controller covering for your doctor. You received an [...] is a short acting narcotic pain medication. Hdsy-tdv-szilwrm Tylenol (acetaminophen) should be taken in addition [...] important in helping to prevent this. An lnjh-aco-cazsqls stool softener can also help prevent or [...] 12/08/2023 3:20 PM Clinic, Dr Walters Team [facility] [address] [place] [address] If you have questions or concerns please contact our [facility] office Wednesday through Wednesday, 8 AM - [...] Walters MD - 11/26/2023 1:30 PM EDT [facility] Operative Note Patient Name: Moshe Castillo : [id number] MR#: [id number] Case Date: 11/26/2023 Surgeon: Surgeon(s) and Role: * Rony Walters MD - Primary * Jj, VAL Fernández - Physician Outside Parts Sales Preoperative diagnosis: Mensicus tear Postoperative diagnosis: MEDIAL Mensicus tear Procedure(s) (LRB): ARTHROSCOPY KNEE, MENISCECTOMY SINGLE W/ SHAVING (WRVU 7.03) (Left) Modifiers: : PA/FIRE ASSISTANT operator/assistant foreman surgeon (no qualified resident available) Anesthesia: General [...] PM EDT Office Visit Neph[place] [address] Betzaida Cope APRN [facility] [place] [address] 06/23/2024 2:00 PM EDT Appointment Non-[place] [phone] Owen Correia MD [facility] [place] [address] documented as of this encounter Procedures Procedure Name Priority Date/Time Associated Diagnosis Comments Knee Scope, Med/Lat Menisectomy (30872) 11/26/2023 1:08 PM EDT Acute medial meniscus tear of left knee, sequela ARTHROSCOPY KNEE, MENISCECTOMY SINGLE W/ SHAVING Routine 11/26/2023 7:29 AM EDT Acute medial meniscus tear of left knee, sequela documented in this encounter Visit Diagnoses Diagnosis Acute medial meniscus tear of left knee, sequela Acute medial meniscus tear of left knee, [...] Given 11/26/2023 11:54 AM EDT 975 mg EPINEPHrine (Adrenalin) (1 mg/mL) injection PRN, Starting on Wed11/26/23 at 1337, Until Wed11/26/23 at 1711, Intra-Operative (Intra-Procedure), Routine Given 11/26/2023 1:23 PM EDT 0.25 mcg 19- Surgical Site oxyCODONE (Roxicodone) tablet 5 mg 5 mg, [...] Routine documented in this encounter Care Teams Ampoule Washing Machine Operator Relationship Specialty Start Date End Date Andi Thomas MD [facility] GENERAL [place] [address] PCP - General General Internal Medicine 03/01/22 documented as of this encounter
--- OUTSIDE RECORDS SUMMARY | 2024-06-09 02:54 | XMS_ITS | Encounter Summary ---
Author Organization [facility] [place] [address] Care Team Providers Care Shipwright Helper Name Role Phone Luther Garrison DO Primary Care Provider [phone] Reason for Visit * Reason Comments Medication Refill Encounter Details Date Type Department Care Team (Late st Contact Info) Description 01/31/2022 [place]ill [place] [address] Luther Garrison, DO [facility] GENER[place] [address] Social History Tobacco Use Types Packs/Day Years Used Date Smoking Tobacco: Never Smokeless Tobacco: Never Alcohol Use Standard Drinks/Week Comments Yes 7 (1 standard drink = 0.6 oz pur e alcohol) Sex and Gender Information Value Date Recorded Sex Assigned at Not on file Gender Identity Not on file Sexual Orientation Not on file documented as of this encounter Miscellaneous Notes * Telephone Encounter - Mago Matamoros CMA - 02/03/2022 4:24 PM EDT Prescription Refill Request Prescription(s) Requested: Requested Prescriptions Pending Prescriptions Disp Refills ??? verapamiL SR (Calan-SR) 180 mg Tablet Sustained Release [Pharmacy Med Name: VERAPAMIL ER 180MG TABLETS] 90 tablet 3 Sig: TAKE 1 TABLET BY MOUTH DAILY Date of Encounter last in This Dept (If over a year and no apt scheduled send to secretaries to schedule): 03/19/2021 Next Encounter in This Dept: Visit date not found Date of Last Refill (for each medication): 02/07/2021 Medication category req. lab studies Lab Results Component Value Date NA 138 09/13/2021 K 4.6 09/13/2021 CL 102 09/13/2021 CO2 24 09/13/2021 BUN 20 09/13/2021 CREATININE 1.46 09/13/2021 GLUCOSE 110 09/13/2021 GLUCFASTING 111 (H) 12/01/2018 CALCIUM 9.8 09/13/2021 ESTGFR 52 (L) 09/13/2021 See also scanned documents on 11/07/21 documented in this encounter Plan of Treatment Upcoming Encounters Date Type Department Care Team (Late st Contact Info) Description 06/16/2024 4:00 PM EDT Office Visit [place] [phone] Betzaida Cope, [facility] [place] [address] 06/23/2024 2:00 PM EDT Appointment Non-[place] [phone] Owen Correia MD [facility] [place] [address] documented as of this encounter Visit Diagnoses Not on filedocumented in this encounter Care Teams Shipwright Helper Relationship Specialty Start Date End Date Luther Garrison DO [facility] [place] [address] PCP - General General Internal Medicine 09/01/19 601/25 documented as of this encounter
--- OUTSIDE RECORDS SUMMARY | 2024-06-09 02:54 | XMS_ITS | Encounter Summary ---
[place] [address] Care Team Providers Care Legal Administrator Name Role Phone Luther Garrison DO Primary Care Provider [phone] Reason for Referral * Diagnostic Test (Emergency) - Closed Specialty Diagnoses / Procedures Referred By Contac t Referred To Contact Radiology Diagnoses Transient global amnesia Procedures MRI Brain wwo Contrast (Generic) Arley Owen MD [facility] [place] [address] [place] [address] Referral ID Status Reason Start Date Expiration Date V isits Requested Visits Authorized [id number] Closed Specialty Service Requested 09/23/2021 11/21/2021 1 1 Reason for Visit * Reason Comments Altered Mental Status Procedure Encounter Details Date Type Department Care Team (Late st Contact Info) Description 09/13/2021 10:06 AM EST - 09/13/2021 6:40 PM EST [place] [address] Danica Burgos MD [facility] [place] [address] Jp Joel MD [facility] [place] [address] Transient global amnesia Discharge Disposition: Home Social History Tobacco Use [...] Sign Reading Time Taken Comments Blood Pressure 160/96 09/13/2021 10:02 AM EST Pulse 66 09/13/2021 4:00 PM EST Temperature 36.8 ??C (98.3 ??F) 09/13/2021 10:[address] Respiratory Rate 18 09/13/2021 4:00 PM EST Oxygen Saturation 100% 09/13/2021 4:00 PM EST Inhaled Oxygen Concentration - - Weight 61.2 kg (135 lb) 09/13/2021 10:02 AM EST Height 170.2 cm (5' 7) 09/13/2021 10:02 AM EST Body Mass Index 21.14 09/13/2021 10:02 AM EST documented in this encounter Discharge Instructions * Discharge Instructions* Lambert Casey MD - 09/13/2021 2:37 PM EST Why you were in the Emergency department: You came to the Emergency Department because you had an episode of confusion. Here in the emergencydepartment we did lab work and scan your head which did not demonstrate any acute causes of this episode. We did reach out to neurology who evaluated you and will be arranged for an outpatient MRI aswell as follow-up with them in the near future. When to call your doctor: - Chest pain, shortness of breath, fatigue with usual exertion, or new rest/night time symptoms. - Call if you develop a temp >100.5 - Your pain is not under control Future Appointments Date Time Provider Department Center 10/23/2021 4:00 PM Teri Agarwal MD [facility] NEPH [facility] PCP: Luther Garrison, DO at [phone] Your Doctor(s) at [facility]: Danica Burgos MD - Attending physician Lambert Casey MD - Resident * Attachments The following attachments cannot be sent through Care Everywhere. * Transient Global Amnesia (Kazakh) documented in this encounter Medications at Time of Discharge Medication Sig Dispensed Refills Start Date End Date lisinopriL (Prinivil;Zestril) 10 mg Tablet Take 1 tablet by mouth daily. 90 tablet 02/20/2021 11/28/2021 verapamiL SR (Calan-SR) 180 mg Tablet Sustained Release Take 1 tablet by mouth daily. 90 tablet 3 02/07/2021 02/04/2022 aspirin EC 81 mg Tablet, Delayed Release (E.C.)Indications:Atypic al chest pain Take 1 tablet by mouth daily. 90 tablet 3 11/15/2020 10/31/2021 documented as of this encounter Procedure Notes * Rohit Correia - 09/13/2021 6:27 PM ESTAssociated Order(s): EEG AWAKE, ASLEEP, DROWSY [facility] Department of Neurology Routine Inpatient EEG Report Name of the Patient: Moshe Castillo Date of : 1960 Date of Service: 09/13/2021 Referring physician: Danica Burgos MD Interpreting physician: Rohti Correia MD BRIEF HISTORY: Moshe Castillo is a 60 y.o. patient with episode of AMS. MEDICATIONS: No current facility-administered medications for this encounter. Current Outpatient Medications: ??? lisinopriL (Prinivil;Zestril) 10 mg Tablet, Take 1 tablet by mouth daily., Disp: 90 tablet, Rfl: 0 ??? verapamiL SR (Calan-SR) 180 mg Tablet Sustained Release, Take 1 tablet by mouth daily., Disp: 90 tablet, Rfl: 3 ??? aspirin EC 81 mg Tablet, Delayed Release (E.C.), Take 1 tablet by mouth daily., Disp: 90 tablet, Rfl: 3 METHODS: A 21 channel digitized electroencephalogram was performed in the [facility]phys[facility]. The 10/20 international system of electrode placement was used and bipolar and referential electrode montages were recorded. In addition to EEG the patient was monitored for EKGand lateral/vertical eye movements. Video was recorded during the session. The duration of the recording was 01:03:47 minutes. YOUTH WORKER'S REPORT: Performed by: NCG Patient was not sleep deprived. Patient's mental state during recording was alert, oriented and cooperative. Sleep was attained. Photic stimulation was performed. Hyperventilation was not performed. Movement and other artifact was not significant Comments: None ELECTROENCEPHALOGRAPHER'S REPORT 1. Background: The background was continuous and spontaneously reactive composed of normal voltage, 10 to 60 ??V, frontally predominant beta and posterior alpha frequencies. There was a 10 Hz posterior dominant rhythm. The anterior-posterior gradient was normal. 2. Focal asymmetries: There was no persistent focal slowing. 3. Epileptiform discharges: There were no epileptiform discharges. 4. Patient events or seizures: No patient events or electrographic seizures were recorded. 5. Provocative maneuvers: Photic stimulation did not provoke abnormalities. Symmetric driving was seen with photic stimulation. 6. Sleep: Sleep was characterized by decreased myogenic artifact and increased slowing. Symmetric sleep spindles were seen. 7: EKG: Single lead EKG was regular. 8: Technical Limitations There were none. Impression and clinical correlation: This routine EEG of approximately 1 hour and 3 minutes was normal awake and asleep. Rohit Correia MD 09/14/21 Associated attestation - Denia Rodriguez MD - 09/26/2021 11:34 AM EST Epilepsy Attending I was the attending physician supervising the fellow in the care as noted. The videoEEG was reviewed in detail by me together with the fellow. I agree with the report. Denia Rodriguez MD [facility] Neurology documented in this encounter ED Notes * Ana Luisa Montes De Oca RN - 09/13/2021 6:30 PM EST Pt refusing DC VS. * Ana Luisa Montes De Oca RN - 09/13/2021 3:59 PM EST EEG here * Danica Root MD - 09/13/2021 3:25 PM EST ED RESIDENT FOLLOW-UP NOTE: Time of transfer of care: 3:25 PM Care transferred from: Dr. Lambert Casey Condition at time of transfer: stable Clinical Summary: 60 y.o. old male in the process of being evaluated for altered mental status. Please see Dr. Wolf's notes for initial evaluation, assessment and plan. ED Course as of 09/13/21 1526 Sat Sep 13, 2021 1452 60 yo with an episode of amnesia this morning. Was confused, didn't know where he was. Has subsequently resolved. Neuro evaluating, wants a 1 hr EEG. Will likely be discharged with outpatient MRI and neuro follow-up. Subsequent ED Course: His 1 hr EEG was normal. Neuro recommended discharge and will get urgent outpatient MRI at [facility] this evening and will follow-up with neuro as an outpatient. Patient was discharged home in a stable condition. Danica Root MD Resident 09/13/21 2244 Associated attestation - Jp Joel MD - 09/14/2021 9:46 AM EST ED ATTENDING ATTESTATION The patient was seen in conjunction with the resident physician. I have independently performed thekey portions of the history and physical exam. I have personally reviewed nursing notes, vital signs, and diagnostic studies including labs, imaging studies and EKGs. I have discussed the details of the case with the resident and agree with the assessment and plan as described in the resident's note, unless stated otherwise in my separate note. Did this case involve critical care? No * Lambert Casey MD - 09/13/2021 2:11 PM EST ED PROVIDER NOTE Patient: Moshe Castillo Age (): 60 y.o. (1960) SUBJECTIVE CC: Chief Complaint Patient presents with ??? Altered Mental Status HPI: Moshe Castillo is a 60 y.o. male who presented to the ED for confusion. Patient was okay at 6 AM in the morning when his left him. Around 630 his daughter called his because he presented to her room asking where he was and what was happening. His picked him up at area and he was stillconfused and could not recall what had happened. In the emergency department he continues to not remember those 2 hours but otherwise is back to baseline. ROS: A 10 point review of systems was performed and was negative aside from pertinent positives listed in HPI. OBJECTIVE VS: BP (!) 160/96 Pulse 71 Temp 36.8 ??C (98.3 ??F) Resp 18 Ht 170.2 cm (5' 7) Wt 61.2 kg (135 lb) SpO2 100% BMI 21.14 kg/m?? PE: General: This is a well-nourished, well-developed male who appears his stated age. Skin: Color and turgor appropriate. Head: Atraumatic and normocephalic. Neck: Symmetrical with midline trachea. Eyes: Visual acuity grossly intact. Sclera anicteric. Ears: Hearing grossly intact to normal conversation. Nose: No bleeding or discharge. Chest/Pulmonary: No respiratory distress. Breathing unlabored. Cardiovascular: Warm extremities. Normal rate. Abdomen: Non-tender to palpation in all quadrants. No rebound or guarding. Musculoskeletal: No gross deformities to the extremities. Neurological: Attention, concentration, language, and fund of knowledge are within expected range. Speech is fluent with normal content. Psychiatric: Patient cooperative with appropriate behavior, thought content, and affect. ED Course: - Medications and fluid administered: Medications iohexoL (Omnipaque) (350 mg/mL) solution 0-200 mL (65 mLs Intravenous Given 09/13/21 1125) - I have reviewed the labs, which are significant for: Recent Results (from the past 24 hour(s)) POCT Glucose Result Value Ref Range POC Glucose 98 65 - 199 mg/dL Basic Metabolic Panel (non-fasting) Result Value Ref Range Glucose Lvl 110 65 - 199 mg/dL BUN 20 10 - 20 mg/dL Creatinine 1.46 0.80 - 1.50 mg/dL Sodium 138 135 - 145 mmol/L Potassium 4.6 3.5 - 5.0 mmol/L Chloride 102 98 - 107 mmol/L CO2 24 22 - 31 mmol/L Anion Gap 12 5 - 15 mmol/L Calcium 9.8 8.5 - 10.5 mg/dL Estimated GFR 52 (L) >=60 mL/min/1.73 m?? Troponin Result Value Ref Range Troponin-T <0.01 0.00 - 0.00 ng/mL Hemogram Result Value Ref Range WBC 7.0 4.0 - 9.5 x10(3)/mcL RBC 5.08 4.58 - 5.54 x10(6)/mcL Hemoglobin 16.2 13.7 - 16.5 g/dL Hematocrit 47.1 40.5 - 48.5 % MCV 92.7 82.9 - 93.1 fL MCH 31.9 27.5 - 32.1 pg MCHC 34.4 32.0 - 35.7 g/dL Platelets 198 145 - 357 x10(3)/mcL RDWSD 41.8 36.0 - 45.0 fL RDWCV 12.1 11.4 - 13.8 % MPV 11.3 7.6 - 12.9 fL nRBC % Auto 0.0 % nRBC Abs Auto 0.000 0.000 - 0.000 x10(3)/mcL Differential, Automated Result Value Ref Range Neutrophils % 81.4 % Neutr Abs (ANC) 5.66 1.70 - 6.10 x10(3)/mcL Lymphocytes % 9.2 % Lymphocytes Abs 0.6 (L) 0.9 - 3.2 x10(3)/mcL Monocytes % 7.8 % Monocyte Abs 0.5 0.3 - 0.9 x10(3)/mcL Eosinophils % 0.3 % Eosinophils Abs 0.0 0.0 - 0.4 x10(3)/mcL Basophils % 1.0 % Basophils Abs 0.1 0.0 - 0.1 x10(3)/mcL Immature Gran % 0.30 % [place] Gran Abs 0.02 0.00 - 0.04 x10(3)/mcL Blue Tube HOLD Result Value Ref Range Blue Hold Sample in lab. Gold Tube HOLD Result Value Ref Range Gold Hold Sample in lab. Urinalysis with reflex Culture Specimen: Urine Result Value Ref Range Glucose UA Negative Negative mg/dL Protein UA Negative Negative mg/dL Bilirubin UA Negative Negative mg/dL Urobilinogen UA Normal Normal mg/dL pH UA 7.0 5.0 - 8.0 Blood UA Negative Negative mg/dL Ketones UA Negative Negative mg/dL Nitrite UA Negative Negative Leukocytes UA Negative Negative mcL Appearance UA Clear Clear Spec [place] UA 1.009 1.005 - 1.030 Color UA Yellow Yellow Culture Reflexed No BLOOD GAS 2 VENOUS Result Value Ref Range pH Anthony 7.38 7.32 - 7.42 pCO2 Anthony 42 41 - 51 mmHg pO2 Anthony 25 25 - 40 mmHg HCO3 Anthony 24.2 mmol/L BE Anthony -0.9 mmol/L Hgb Blood Gas 14.3 13.7 - 16.5 g/dL O2HB Anthony 48.4 % COHB Anthony 1.3 % METHB Anthony 0.8 <=1.5 % Na Whole Blood 137 135 - 145 mmol/L K Whole Blood 5.7 (H) 3.5 - 5.0 mmol/L ICa Whole Blood 1.16 1.15 - 1.33 mmol/L CL Whole Blood 98 98 - 107 mmol/L Gluc Whole Bld 90 65 - 199 mg/dL Lactate WB 1.2 0.5 - 2.2 mmol/L BGas Source Venous - I have reviewed the imaging, which is significant for: XR Chest PA & Lateral (Generic) Final Result No acute process. Evidence of hyperinflation may reflect COPD. Thank you for letting us participate in the care of this patient. If you are a health care provider and have any questions regarding this report, please contact the number below. For patients who have questions please contact the health child caregiver that requested your imaging first. Electronically signed by: SAVANNAH WILSON [facility] ([phone]), at 09/13/2021 1:[address] Head wo Contrast (Generic) Final Result No acute intracranial process. Thank you for letting us participate in the care of this patient. If you are a health care provider and have any questions regarding this report, please contact the number below. For patients who have questions please contact the health child caregiver that requested your imaging first. Angiogram Carotids & [place] Final Result No significant arterial vascular abnormalities. Thank you for letting us participate in the care of this patient. If you are a health care provider and have any questions regarding this report, please contact the number below. For patients who have questions please contact the health child caregiver that requested your imaging first. - I have reviewed the EKG, which is significant for: Normal sinus rhythm ASSESSMENT & PLAN MDM: Moshe Castillo is a 60 y.o. male with limited past medical history who presents with single episode of admission. In the emergency department he was hemodynamically stable with an unremarkable physical exam and NIH stroke scale of 0. EKG nonischemic, no troponin leak. Chest x-ray unremarkable. CT and CT angiogram of the head did not demonstrate any acute processes. No lab work abnormalities. At this point we do not have a cardiac or neurologic cause of his transient paralysis. Given the description of the event, concern for transient global amnesia for which neurology is consulted. Neurology will evaluate the patient and will be getting an expedited outpatient MRI with follow-up. PLAN: DC home, expedited outpatient MRI/neuro follow Lambert Casey MD Resident 09/13/21 1421 Associated attestation - Danica Burgos MD - 09/13/2021 2:38 PM EST ED ATTENDING ATTESTATION The patient was seen in conjunction with the resident physician. I have independently performed thekey portions of the history and physical exam. I have personally reviewed nursing notes, vital signs, and diagnostic studies including labs, imaging studies and EKGs. I have discussed the details of the case with the resident and agree with the assessment and plan as described in the resident's note, unless stated otherwise in my separate note. Did this case involve critical care? No * Ana Luisa Montes De Oca RN - 09/13/2021 10:38 AM EST Pt has <30 second memory recall. Pt perseverating on why he is here and is this Covid related * Danica Burgos MD - 09/13/2021 10:25 AM EST Brief Attending Not I cared for the patient with the resident physician. Please see Dr. Klaus Jerry's note, associated with the encounter, for more details. HPI: Moshe Castillo is a 60 y.o. who presents to the ED 2 hours of mental confusion from 6a to 8a as noted by his daughter. His brought him to the ED. Per he was confused, perseverating and asking repetitive questions. ED Course: No focal deficits. NIH stroke scale is 0. But is confused about the year. Thinks it is 2020. Unableto recall events Results for orders placed or performed during the hospital encounter of 09/13/21 CT Head wo Contrast (Generic) (Exam End: 09/13/2021 11:36 AM) Impression No acute intracranial process. Thank you for letting us participate in the care of this patient. If you are a health care provider and have any questions regarding this report, please contact the number below. For patients who have questions please contact the health child caregiver that requested your imaging first. Angiogram Carotids & [place] (Exam End: 09/13/2021 11:36 AM) Impression No significant arterial vascular abnormalities. Thank you for letting us participate in the care of this patient. If you are a health care provider and have any questions regarding this report, please contact the number below. For patients who have questions please contact the health child caregiver that requested your imaging first. Chest PA & Lateral (Generic) (Exam End: 09/13/2021 12:57 PM) Impression No acute process. Evidence of hyperinflation may reflect COPD. Thank you for letting us participate in the care of this patient. If you are a health care provider and have any questions regarding this report, please contact the number below. For patients who have questions please contact the health child caregiver that requested your imaging first. Electronically signed by: SAVANNAH WILSON [facility] ([phone]), at 09/13/2021 1:15 PM Recent Results (from the past 12 hour(s)) POCT Glucose Result Value POC Glucose 98 Basic Metabolic Panel (non-fasting) Result Value Glucose Lvl 110 BUN 20 Creatinine 1.46 Sodium 138 Potassium 4.6 Chloride 102 CO2 24 Anion Gap 12 Calcium 9.8 Estimated GFR 52 (L) Troponin Result Value Troponin-T <0.01 Hemogram Result Value WBC 7.0 RBC 5.08 Hemoglobin 16.2 Hematocrit 47.1 MCV 92.7 MCH 31.9 MCHC 34.4 Platelets 198 RDWSD 41.8 RDWCV 12.1 MPV 11.3 nRBC % Auto 0.0 nRBC Abs Auto 0.000 Differential, Automated Result Value Neutrophils % 81.4 Neutr Abs (ANC) 5.66 Lymphocytes % 9.2 Lymphocytes Abs 0.6 (L) Monocytes % 7.8 Monocyte Abs 0.5 Eosinophils % 0.3 Eosinophils Abs 0.0 Basophils % 1.0 Basophils Abs 0.1 Immature Gran % 0.30 [place] Gran Abs 0.02 Blue Tube HOLD Result Value Blue Hold Sample in lab. Gold Tube HOLD Result Value Gold Hold Sample in lab. Urinalysis with reflex Culture Specimen: Urine Result Value Glucose UA Negative Protein UA Negative Bilirubin UA Negative Urobilinogen UA Normal pH UA 7.0 Blood UA Negative Ketones UA Negative Nitrite UA Negative Leukocytes UA Negative Appearance UA Clear Spec [place] UA 1.009 Color UA Yellow Culture Reflexed No BLOOD GAS 2 VENOUS Result Value pH Anthony 7.38 pCO2 Anthony 42 pO2 Anthony 25 HCO3 Anthony 24.2 BE Anthony -0.9 Hgb Blood Gas 14.3 O2HB Anthony 48.4 COHB Anthony 1.3 METHB Anthony 0.8 Na Whole Blood 137 K Whole Blood 5.7 (H) ICa Whole Blood 1.16 CL Whole Blood 98 Gluc Whole Bld 90 Lactate WB 1.2 BGas Source Venous Assessment/plan: Transient Global Amnesia Neurology consult Care to oncoming team at shift change Danica Burgos MD 09/13/21 1433 documented in this encounter Miscellaneous Notes * Consult Note - Arley Owen MD - 09/13/2021 5:20 PM EST Images from the original note were not included. Admit Date 09/13/2021 ( Hospital Day 0 days ) Responsible Attending: Jp Joel MD Primary Provider: Luther Garrison DO [phone] Consult Question TGA vs. Seizure Patient ID 60 yo M with pmhx of renal artery stenosis and HTN presenting with episode of AMS. History of Presenting Illness His night prior was normal - went for a run 4-5pm with his dog, drank two beers and went to sleep. This morning woke up and remembers having oatmeal around 6am, was normal until around 8am when his daughter found him in the room asking repetitive questions about if there was someone visiting, if hehad embarrassed himself. She called her mother who then came home and found him to be confused. There was some concern about him lying on the floor and having a strange taste in his mouth during thisevent but no overt LOC or fall, no urinary incontinence, no tongue biting. No recent medication changes. No prior history of seizures, TBI, meningitis, intracranial surgery, awareness of related complications. There is some improvement in memory formation in the ED. Denies illicit substance aside from 1 beer per day. ROS (+) confusion, retrograde amnesia ROS (-) weight loss, fevers, chills, night sweats, headache, photophobia, rhinitis, sore throat, neck stiffness, chest pain, cough, dyspnea, abdominal pain, nausea, vomiting, diarrhea, hematemesis, hematochezia, melena, dysuria, edema. Allergies Allergen Reactions ??? Amlodipine Other (See Comments) CHEST DISCOMFORT ??? Pseudafen [Pseudoephedrine Hcl] Other (See Comments) Heart races Past Medical History: Diagnosis Date ??? 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 HTN (hypertension) ??? Renal artery stenosis left renal artery Past Surgical History: Procedure Laterality Date ??? PRO COLONOSCOPY, DIAGNOSTIC N/A 03/05/2020 COLONOSCOPY, DIAGNOSTIC performed by Sonny Mike MD at [facility] Family History Problem Relation Age of Onset ??? Myocardial Infarction Father 52 Social History Socioeconomic History ??? Marital status: Spouse name: Not on file ??? Number of children: Not on file ??? Years of education: Not on file ??? Highest education level: Not on file Occupational History ??? Not on file Tobacco Use ??? Smoking status: Never Smoker ??? Smokeless tobacco: Never Used Vaping Use ??? Vaping Use: Never used Substance and Sexual Activity ??? Alcohol use: Yes Alcohol/week: 7.0 standard drinks Types: 7 Cans of beer per week ??? Drug use: Never ??? Sexual activity: Not Currently Other Topics Concern ??? Do You live alone? Not Asked ??? 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 with 3 children (2 high school age, one college-age). Enjoys exercise (running, basketball). Social Determinants of Health Financial Resource Strain: Not on file Food Insecurity: Not on file Transportation Needs: Not on file Physical Activity: Not on file Housing Stability: Not on file Physical Exam BP (!) 160/96 Pulse 66 Temp 36.8 ??C (98.3 ??F) Resp 18 Ht 170.2 cm (5' 7) Wt 61.2 kg (135 lb) SpO2 100% BMI 21.14 kg/m?? Gen: Patient of apparent stated age, well nourished, well developed, awake, alert, NAD Neck: Supple, no meningismus Resp: normal respiratory effort Abd: soft, nontender, nondistended Ext: No edema. No bony deformity Neuro Exam: MS: AAOx4, clear language, no dysarthria, follows commands. Memory seems to be improving since being in the ED. Able to do serial sevens when slows down to correctly subtract. Able to recount recent events - cryptocurrencey alvarez drop, Biden's speech on 09/11 CN: PERRL, EOMI, visual yanes full Facial sensation intact, no facial asymmetry Hearing intact to conversation Palate elevates symmetrically, tongue protrudes midline SCM and trap strength intact Motor: Normal bulk and tone. Fasciculations seen in bilateral calves Segment Muscle Action Left Right C5 Deltoid Shoulder Abduction 5 5 C6 Biceps Elbow flexion 5 5 C6 Extensor carpi radialis Wrist extension 5 5 C7 Triceps Elbow extension 5 5 C8 Finger flexors Grasp 5 5 T1 Interossei Finger abduction 5 5 L2 Iliopsoas Hip flexion 5 5 L3 Quadriceps Knee extension 5 5 L4 Tibialis anterior Dorsiflexion 5 5 L5 Extensor hallucis Great toe extension 5 5 S1 Gastrocnemius Plantar flexion 5 5 Sensation: Intact to light touch throughout Reflexes: DTRs 2+ R, 2+ L Biceps 2+ R, 2+ L Brachioradialis 2+ R, 2+ L Triceps 2+ R, 2+ L Patellar 2+ R, 2+ L Achilles tendon Hill's negative Toes - R down, L down Coordination: Finger to nose intact, no dysmetria Rapid alternating movements & finger tapping smooth and symmetric Heel-bates intact No tremor Gait: Stable, steady Weight: Patient Vitals for the past 168 hrs: Weight 09/13/21 1002 61.2 kg (135 lb) Intake/Output Trend: No intake/output data recorded. No intake/output data recorded. BMP Recent Labs 09/13/21 1030 NA 138 K 4.6 CL 102 CO2 24 BUN 20 CREATININE 1.46 GLUCOSE 110 Recent Labs 09/13/21 1030 CALCIUM 9.8 CBC Recent Labs 09/13/21 1030 WBC 7.0 HGB 16.2 HCT 47.1 PLATELET 198 MCV 92.7 NEUTROABS 5.66 Hepatic Function Tests and Coags No results for input(s): AST, ALT, ALKPHOS, BILITOT, BILIDIR, LDH in the last 168 hours. No results for input(s): INR, PT, PTT in the last 72 hours. Diabetes and Lipids No results for input(s): HA1C, GLKYD8T, NJB5HFEK, LABGLUC2, MICROALBUR in the last 168 hours. No results for input(s): CHLPL, HDL, TRIG, LDLDIRECT in the last 168 hours. Additional Testing No results for input(s): PHART, QRC9QDO, PO2ART, ZRY7QDM in the last 168 hours. No results for input(s): LDH, HAPTOGLOBIN, URICACID in the last 168 hours. Micro Microbiology Results (Last 30 days) Procedure Component Value Units Date/Time COVID-19 PCR [[id number]] Collected: 09/13/21 1235 Lab Status: Final result Specimen: Nasopharyngeal Swab Updated: 09/13/21 1509 SARS-CoV-2 RNA PCR Not Detected Comment: This result should be interpreted in combination with the clinical observations, patient history and epidemiological information. For testing of asymptomatic individuals, assay performance characteristics and clinical utility have not been evaluated. Testing for SARS-CoV-2 (Severe acute respiratory syndrome coronavirus 2, formerly known as 2019 novel coronavirus or 2019-nCoV) to aid in the diagnosis of COVID-19 is performed using the Simplexa COVID-19 Direct Assay by [employer] as authorized by the FDA issued Emergency [...] Department of Pathology and Laboratory Medicine at [facility], certified under the Clinical Laboratory Improvement [...] fact sheets at the following FDA website: https://www.fda.gov/medical-devices/sglggoybqqo-qrlrluj-5912-omyxq-31-yudxyufcw- kad-ubfnmacyzkrfnz-ratjndd-devices/folhg-yplyhebvbwi-myiy SARS-CoV-2 Source 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 XR Chest PA & Lateral (Generic): 09/13/2021 No acute process. Evidence of hyperinflation may reflect COPD. CT Angiogram Carotids & [place]: 09/13/2021 No significant arterial vascular abnormalities. Assessment/Plan 60 yo M with pmhx of renal artery stenosis and HTN presenting with episode of AMS. Overall impression is episode of TGA. We can forgo imaging at this time, eval with EEG at this time given strange taste in tongue and some residual perseverative questioning. Fasciculations are incidental and symmetric, likely benign but can consider further evaluation in clinic. Discussed driving with him and recommended to avoid it until follow up, able to return to normal level of activities otherwise. # Suspected TGA - 1hr EEG - no driving until neurologic follow up - will order MRI wwo in urgent scan - neurologic follow up for results of MRI and fasciculations in LE bilaterally - no driving until neurologic follow up For urgent MRI - at discharge from ED I will put ED patient for urgent MRI in order - patient should call [phone] to schedule the MRI,goal is within 48hrs Arley Owen PGY-[address] Dillon Associated attestation - Jp Dillon III, MD - 09/13/2021 8:33 PM EST Neurology Attending Attestation I saw and evaluated Moshe Castillo with Dr. Owen, neurology resident. I have reviewed the medical records and the patient's history and I agree with the details as written. My physical examination confirms the findings. The assessment and plan were formulated in discussion with me and I agree with them as documented. Attending Summary/Plan Probable TGA - would recommend EEG to evaluate for predisposition for seizure. Agree with additional recommendations as per Dr. Owen. Jp Dillon III, MD [employer] Department of Neurology [facility] Pager: [phone] 8:31 PM 09/13/2021 * ED Triage - Dottie Fink RN - 09/13/2021 10:05 AM EST Pt arrives ambulatory with stable gait. A&Ox4 speaking in full sentences. Pt arrives with . reports she woke up at 0530 with pt and pt was normal. She left for work at 0630. Got call from daughter at 0800 reporting pt was acting odd. He had woken daughter up reporting a bad dream. Unable to recall the date, day of the week or other everyday activities. Repetitive questioning. Pt states it is Wednesday but unsure of month or date. Denies numbness and tingling. 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 Nofacial droop. Moving all four extremities. Pupils equal and reactive. Respirations even and non labored. Skin p/w/d. NAD at this time. Pt's daughter tested positive for covid on 08/27. Negative testsfor pt and on Wednesday. documented in this encounter Plan of Treatment Upcoming Encounters Date Type Department Care Team (Late st Contact Info) Description 06/16/2024 4:00 PM EDT Office Visit Neph[place] [address] Betzaida Cope APRN [facility] [place] [address] 06/23/2024 2:00 PM EDT Appointment Non-[place] [address] Owen Correia MD [facility] [place] [address] documented as of this encounter Procedures Procedure Name Priority Date/Time Associated Diagnosis Comments ZEEG AWAKE, ASLEEP, DROWSY Routine 09/13/2021 6:27 PM EST XR CHEST PA AND LATERAL STAT 09/13/2021 12:57 PM EST BLOOD GAS VENOUS POC Routine 09/13/2021 12:50 PM EST RAPID COVID-19 PCR ([facility]) STAT 09/13/2021 12:[address] CAROTIDS AND [place] W CONTRAST STAT 09/13/2021 11:[address] HEAD WO CONTRAST (GENERIC) STAT 09/13/2021 11:36 AM EST URINALYSIS WITH REFLEX CULTURE STAT 09/13/2021 11:36 AM EST EKG 12-LEAD STAT 09/13/2021 10:31 AM EST HEMOGRAM STAT 09/13/2021 10:30 AM EST DIFFERENTIAL, AUTOMATED STAT 09/13/2021 10:30 AM EST GOLD TUBE HOLD STAT 09/13/2021 10:30 AM EST BLUE TUBE HOLD STAT 09/13/2021 10:30 AM EST HC CBC,PLT & AUTO DIFF STAT 09/13/2021 10:30 AM EST HC TROPONIN T STAT 09/13/2021 10:30 AM EST BASIC METABOLIC PANEL STAT 09/13/2021 10:30 AM EST POCT GLUCOSE Routine 09/13/2021 10:23 AM EST documented in this encounter Results * MRI Brain wwo Contrast (Generic) (09/26/2021 7:55 PM EST) Anatomical Region Laterality Modality Head Magnetic Resonan ce Impressions 09/26/2021 8:13 PM EST 1. ??No acute infarction, mass or mass effect. 2. ??No abnormal signal within the hippocampi. 3. ??No abnormal enhancement. Thank you for letting us participate in the care of this patient. ??If you are a health care provider and have any questions regarding this report, please contact the number below. ??For patients who have questions please contact the health child caregiver that requested your imaging first. ? Narrative 09/26/2021 8:13 PM EST EXAMINATION: MRI BRAIN WWO CONTRAST (GENERIC) CLINICAL HISTORY: Transient global amnesia 60yo M with TGA vs. ??- ED patient for Urgent Outpatient MRI at or [facility] TECHNIQUE: MRI of the brain was performed before and after the intravenous administration of 12cc Dotarem. COMPARISON: Head CT 09/13/2021 FINDINGS: Ventricles are normal in size. Basal cisterns are patent. No mass or mass effect. No abnormal restricted diffusion. No evidence of acute cortical infarction. Specifically no abnormal restricted diffusion within the hippocampus. There is a small focus of T2 prolongation in the subcortical white matter of the right frontal lobe (axial series 5 image 30). Additional punctate focus of T2 prolongation within the subcortical white matter of the more superior right frontal lobe (axial series 5 image 36 ). These 2 foci are nonspecific and are of uncertain clinical significance and are a common finding on MRI in patients of this age. No susceptibility related signal loss to suggest microhemorrhage. No abnormal brain parenchymal or meningeal enhancement. Orbits are unremarkable. There is mild mucosal thickening within the left maxillary sinus and a mucus retention cyst in the inferior right maxillary sinus. No abnormal signal in the mastoid air cells. Normal intracranial intravascular flow voids. Normal marrow space signal. Procedure Note Dom Grace MD - 09/26/2021 EXAMINATION: MRI BRAIN WWO CONTRAST (GENERIC) CLINICAL HISTORY: Transient global amnesia 60yo M with TGA vs. - ED patient for Urgent Outpatient MRI at or [facility] TECHNIQUE: MRI of the brain was performed before and after the intravenousadministration of 12cc Dotarem. COMPARISON: Head CT 09/13/2021 FINDINGS: Ventricles are normal in size. Basal cisterns are patent. No mass ormass effect. No abnormal restricted diffusion. No evidence of acute corticalinfarction. Specifically no abnormal restricted diffusion within the hippocampus. There is a small focus of T2 prolongation in the subcortical white matterof the right frontal lobe (axial series 5 image 30). Additional punctate focus ofT2 prolongation within the subcortical white matter of the more superiorright frontal lobe (axial series 5 image 36 ). These 2 foci are nonspecific andare of uncertain clinical significance and are a common finding on MRI inpatients of this age. No susceptibility related signal loss to suggest microhemorrhage. Noabnormal brain parenchymal or meningeal enhancement. Orbits are unremarkable. There is mild mucosal thickening within theleft maxillary sinus and a mucus retention cyst in the inferior rightmaxillary sinus. No abnormal signal in the mastoid air cells. Normal intracranial intravascular flow voids. Normal marrow space signal. IMPRESSION 1. No acute infarction, mass or mass effect. 2. No abnormal signal within the hippocampi. 3. No abnormal enhancement. Thank you for letting us participate in the care of this patient. If youare a health care provider and have any questions regarding this report,please contact the number below. For patients who have questions please contactthe health child caregiver that requested your imaging first. Jp Joel MD IMG MRI ORDERABLES * EEG awake, asleep, drowsy, routine (09/13/2021 6:27 PM EST) Narrative Denia Rodriguez MD - 09/13/2021 6:27 PM EST Rohit Correia MD ? 09/14/2021 ??5:08 PM [facility] Department of Neurology Routine Inpatient EEG Report Name of the Patient: ??Moshe Castillo Date of : ?1960 Date of Service: ?09/13/2021 Referring physician: ?Danica Burgos MD Interpreting physician: ??Rohit Correia MD BRIEF HISTORY: Moshe Castillo is a 60 y.o. patient with episode of AMS. MEDICATIONS: No current facility-administered medications for this encounter. Current Outpatient Medications: ?lisinopriL (Prinivil;Zestril) 10 mg Tablet, Take 1 tablet by mouth daily., Disp: 90 tablet, Rfl: 0 ?verapamiL SR (Calan-SR) 180 mg Tablet Sustained Release, Take 1 tablet by mouth daily., Disp: 90 tablet, Rfl: 3 ?aspirin EC 81 mg Tablet, Delayed Release (E.C.), Take 1 tablet by mouth daily., Disp: 90 tablet, Rfl: 3 METHODS: A 21 channel digitized electroencephalogram was performed in the [facility] Clinical Neurophysiology Laboratory. The 10/20 international system of electrode placement was used and bipolar and referential electrode montages were recorded. ??In addition to EEG the patient was monitored for EKG and lateral/vertical eye movements. Video was recorded during the session. The duration of the recording was 01:03:47 minutes. YOUTH WORKER'S REPORT: Performed by: [facility] Patient was not sleep deprived. Patient's mental state during recording was alert, oriented and cooperative. Sleep was attained. Photic stimulation was performed. Hyperventilation was not performed. Movement and other artifact was not significant Comments: None ELECTROENCEPHALOGRAPHER'S REPORT 1. Background: The background was continuous and spontaneously reactive composed of normal voltage, 10 to 60 ??V, frontally predominant beta and posterior alpha frequencies. ??There was a 10 Hz posterior dominant rhythm. ??The anterior-posterior gradient was normal. 2. Focal asymmetries: There was no persistent focal slowing. 3. Epileptiform discharges: There were no epileptiform discharges. 4. Patient events or seizures: No patient events or electrographic seizures were recorded. 5. Provocative maneuvers: Photic stimulation did not provoke abnormalities. Symmetric driving was seen with photic stimulation. 6. Sleep: Sleep was characterized by decreased myogenic artifact and increased slowing. ??Symmetric sleep spindles were seen. 7: EKG: Single lead EKG was regular. 8: ??Technical Limitations There were none. Impression and clinical correlation: This routine EEG of approximately 1 hour and 3 minutes was normal awake and asleep. Rohit Correia MD 09/14/21 Danica Burgos MD NEUROLOGY ORDERABLES * XR Chest PA & Lateral (Generic) (09/13/2021 12:57 PM EST) Anatomical Region Laterality Modality Chest N/A Digital Radiogra phy Impressions 09/13/2021 1:15 PM EST No acute process. Evidence of hyperinflation may reflect COPD. Thank you for letting us participate in the care of this patient. ??If you are a health care provider and have any questions regarding this report, please contact the number below. ??For patients who have questions please contact the health child caregiver that requested your imaging first. ? Narrative 09/13/2021 1:15 PM EST EXAMINATION: XR CHEST PA AND LATERAL (GENERIC) CLINICAL HISTORY: pneumonia. Hx CLL TECHNIQUE: PA and lateral views of the chest COMPARISON: CT chest 03/08/2019. FINDINGS: The lungs are clear. There is evidence of hyperinflation with flattening of the diaphragm. There is no pneumothorax or pleural effusion. ??The cardiomediastinal silhouette is unremarkable. There is no acute osseous abnormality. Procedure Note Savannah Wilson MD - 09/13/2021 EXAMINATION: XR CHEST PA AND LATERAL (GENERIC) CLINICAL HISTORY: pneumonia. Hx CLL TECHNIQUE: PA and lateral views of the chest COMPARISON: CT chest 03/08/2019. FINDINGS: The lungs are clear. There is evidence of hyperinflation with flatteningof the diaphragm. There is no pneumothorax or pleural effusion. Thecardiomediastinal silhouette is unremarkable. There is no acute osseous abnormality. IMPRESSION No acute process. Evidence of hyperinflation may reflect COPD. Thank you for letting us participate in the care of this patient. If youare a health care provider and have any questions regarding this report,please contact the number below. For patients who have questions please contactthe health child caregiver that requested your imaging first. Electronically signed by: SAVANNAH WILSON [facility] ([phone]),at 09/13/2021 1:15 PM Danica Burgos MD IMG DX ORDERABLES * (ABNORMAL) BLOOD GAS 2 VENOUS (09/13/2021 12:50 PM EST) pH, Venous 7.38 7.32 - 7.42 [facility] PCO2, Venous 42 41 - 51 mmHg [facility] PO2, Venous 25 25 - 40 mmHg [facility] Bicarbonate, Venous 24.2 mmol/L [facility] Base Excess, Venous -0.9 mmol/L [facility] Hgb Blood Gas 14.3 13.7 - 16.5 g/dL [facility] Oxyhemoglobin, Venous 48.4 % [facility] Carboxyhemoglob in, Venous 1.3 % [facility] Comment: Nonsmokers: 0.5-1.5% COHB Smokers: Variable, but usually less than 10% Toxic: 20-30% COHB Lethal: Greater than 60% COHB Methemoglobin, Venous 0.8 <=1.5 % [facility] Na Whole Blood 137 135 - 145 mmol/L [facility] K Whole Blood 5.7(H) 3.5 - 5.0 mmol/L [facility] Comment: Please note: Patients with WBC >100,000 may have falsely elevated Potassium levels. Contact the Clinical Chemistry Laboratory if there are any questions. ICa Whole Blood 1.16 1.15 - 1.33 mmol/L [facility] Comment: Note: ??Total bilirubin higher than 20 mg/dL may lead to falsely low ionized calcium. CL Whole Blood 98 98 - 107 mmol/L [facility] Gluc Whole Bld 90 65 - 199 mg/dL [facility] Comment:Diabetes: >=200 mg/d L plus symptoms Lactate WB 1.2 0.5 - 2.2 mmol/L [facility] Blood Gas Source Venous [facility] Blood 09/13/2021 12:5 0 PM EST 09/13/2021 12:50 PM EST Danica Burgos MD POINT OF CARE TEST O RDERABLES [facility] [place] [address] * COVID-19 PCR (09/13/2021 12:35 PM EST) SARS-CoV-2 RNA (Rapid) Not Detected Not Detected [facility] Comment: This result should be interpreted in combination with the clinical observations, patient history and epidemiological information. For testing of asymptomatic individuals, assay performance characteristics and clinical utility have not been evaluated. Testing for SARS-CoV-2 (Severe acute respiratory syndrome coronavirus 2, formerly known as 2019 novel coronavirus or 2019-nCoV) to aid in the diagnosis of COVID-19 is performed using the Simplexa COVID-19 Direct Assay by [employer] as authorized by the FDA issued Emergency [...] Department of Pathology and Laboratory Medicine at [facility], certified under the Clinical Laboratory Improvement [...] fact sheets at the following FDA website: https://www.fda.gov/medical-devices/wjdptposmzx-pnkznoy-6723-cctgt-69-wynqpcwee- use-a ktxmlmovesquh-iegrtqh-ghobbqx/lcxzt-uihqmeragwc-bunw SARS-CoV-2 Source 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 Thank you for letting us participate in the care of this patient. ??If you are a health care provider and have any questions regarding this report, please contact the number below. ??For patients who have questions please contact the health child caregiver that requested your imaging first. ? Narrative 09/13/2021 11:55 AM EST EXAMINATION: CT ANGIOGRAM CAROTIDS AND [place] CLINICAL HISTORY: TIA, initial exam TECHNIQUE: CTA of the head and neck performed after the intravenous administration contrast. . MIP and 3-D volumetric reconstructions were created. COMPARISON: None FINDINGS: CTA neck: Patency of the major aortic branch vessels. Mild narrowing at the origin of the left vertebral artery on an atherosclerotic basis. Right vertebral artery origin is patent. Above their origins no narrowing along the course of the extradural vertebral arteries. Normal caliber of the bilateral carotid arteries. Lung apices are clear. Thyroid gland is normal as are the bilateral parotid glands. No masses along the visualized upper aerodigestive tract. No lymphadenopathy. CTA HEAD: Intracranial vessels are of normal course and caliber without stenoses, proximal large vessel occlusions or aneurysms identified. Procedure Note Nestor Turcios MD - 09/13/2021 EXAMINATION: CT ANGIOGRAM CAROTIDS AND [place] CLINICAL HISTORY: TIA, initial exam TECHNIQUE: CTA of the head and neck performed after the intravenous administration contrast. . MIP and 3-D volumetric reconstructions were created. COMPARISON: None FINDINGS: CTA neck: Patency of the major aortic branch vessels. Mild narrowing atthe origin of the left vertebral artery on an atherosclerotic basis. Rightvertebral artery origin is patent. Above their origins no narrowing along the course of the extraduralvertebral arteries. Normal caliber of the bilateral carotid arteries. Lung apices are clear. Thyroid gland is normal as are the bilateralparotid glands. No masses along the visualized upper aerodigestive tract. No lymphadenopathy. CTA HEAD: Intracranial vessels are of normal course and caliber without stenoses, proximal large vessel occlusions or aneurysms identified. IMPRESSION No significant arterial vascular abnormalities. Thank you for letting us participate in the care of this patient. If youare a health care provider and have any questions regarding this report,please contact the number below. For patients who have questions please contactthe health child caregiver that requested your imaging first. Danica Burgos MD IMG CT ORDERABLES * CT Head wo Contrast (Generic) (09/13/2021 11:36 AM EST) Anatomical Region Laterality Modality Head Computed Tomogra phy 09/13/2021 11:5 9 AM EST Impressions 09/13/2021 11:55 AM EST No acute intracranial process. Thank you for letting us participate in the care of this patient. ??If you are a health care provider and have any questions regarding this report, please contact the number below. ??For patients who have questions please contact the health child caregiver that requested your imaging first. ? Electronically signed by: YASMIN Schuler [facility] ([phone]), at 09/13/2021 11:55 AM Narrative 09/13/2021 11:55 AM EST EXAMINATION: CT HEAD WO CONTRAST (GENERIC) CLINICAL HISTORY: TIA, initial exam TECHNIQUE: CT Head was performed without contrast COMPARISON: None FINDINGS: There is no acute intracranial hemorrhage. ??There is no mass effect, midline shift or extra-axial fluid collection. The ventricles are normal in size. The small-white differentiation is preserved. Ill-defined hypoattenuation within the inferior right frontal lobe is likely artifactual. Mucosal thickening within the antrum of the maxillary sinuses associated with periapical lucencies indicating the present of endodontal disease. Mastoid air cells are clear. Procedure Note Nestor Turcios MD - 09/13/2021 EXAMINATION: CT HEAD WO CONTRAST (GENERIC) CLINICAL HISTORY: TIA, initial exam TECHNIQUE: CT Head was performed without contrast COMPARISON: None FINDINGS: There is no acute intracranial hemorrhage. There is no masseffect, midline shift or extra-axial fluid collection. The ventricles are normalin size. The small-white differentiation is preserved. Ill-definedhypoattenuation within the inferior right frontal lobe is likely artifactual. Mucosalthickening within the antrum of the maxillary sinuses associated with periapicallucencies indicating the present of endodontal disease. Mastoid air cells areclear. IMPRESSION No acute intracranial process. Thank you for letting us participate in the care of this patient. If youare a health care provider and have any questions regarding this report,please contact the number below. For patients who have questions please contactthe health child caregiver that requested your imaging first. Danica Burgos MD [facility] CT ORDERABLES * Urinalysis with reflex Culture (09/13/2021 11:36 AM EST) Glucose, Urine Dipstick Negative Negative mg/dL [facility] Protein, Urine Dipstick Negative Negative mg/dL [facility] Bilirubin, Urine Dipstick Negative Negative mg/dL [facility] Comment: Clinical correlation required for positive Urine Bilirubin results as false positive may occur with some drugs and drug related products. If a false positive is suspected a serum total bilirubin should be considered if clinically indicated. Urobilinogen, Urine Dipstick Normal Normal mg/dL [facility] pH, Urn (dipstick) 7.0 5.0 - 8.0 [facility] Blood, Urine Dipstick Negative Negative mg/dL [facility] Ketone, Urine Dipstick Negative Negative mg/dL [facility] Nitrite, Urine Dipstick Negative Negative [facility] Leukocytes, Urine Dipstick Negative Negative [facility] Appearance, Urine Dipstick Clear Clear [facility] Specific [place] Urine Automated 1.009 1.005 - 1.030 [facility] Color, Urine Dipstick Yellow Yellow [facility] Reflex to Culture No [facility] Urine 09/13/2021 11:3 6 AM EST 09/13/2021 12:31 PM EST Narrative Resulting Agency Comment Spec In Lab Danica Burgos MD URINE ORDERABLES Performing Organization Address [facility] Co de Phone Number [facility] [place] [address] * EKG 12 Lead (09/13/2021 10:31 AM EST) Ventricular rate 77 BPM MUSE SYSTEM Atrial Rate 77 BPM MUSE SYSTEM P-R Interval 132 ms MUSE SYSTEM QRS Duration 80 ms MUSE SYSTEM Q-T Interval 396 ms MUSE SYSTEM QTC Calculated (Bezet) 448 ms MUSE SYSTEM Calculated P [place] 68 degrees MUSE SYSTEM Calculated R [place] 78 degrees MUSE SYSTEM Calculated T [place] 56 degrees MUSE SYSTEM INTERPRETATION Normal sinus rhythm Biatrial enlargement Abnormal ECG When compared with ECG of 19-DEC-2018 01:05, No significant change was found Confirmed by Tati Armenta MD ([id number]) on 09/13/2021 3:41:34 PM MUSE SYSTEM 09/13/2021 10:3 1 AM EST 09/13/2021 3:41 PM EST Danica Burgos MD ECG ORDERABLES MUSE SYSTEM * Gold Tube HOLD (09/13/2021 10:30 AM EST) Gold Hold Sample in lab. [facility] Blood Venous Draw / Unknown 09/13/2021 10:30 AM EST 09/13/2021 11:05 AM EST Lambert Casey MD CHEMISTRY ORD ERABLES Performing Organization Address City/[facility]/ZIP Co de Phone Number [facility] [place] [address] * Blue Tube HOLD (09/13/2021 10:30 AM EST) Blue Hold Sample in lab. [facility] Blood Venous Draw / Unknown 09/13/2021 10:30 AM EST 09/13/2021 11:06 AM EST Lambert Casey MD HEMATOLOGY OR DERABLES Performing Organization Address City/[facility] Co de Phone Number [facility] [place] [address] * (ABNORMAL) Differential, Automated (09/13/2021 10:30 AM EST) Neutrophil % 81.4 % [facility] Neutrophil Absolute 5.66 1.70 - 6.10 x10(3)/mc L [facility] Lymph % 9.2 % [facility] Lymphocytes Abs 0.6(L) 0.9 - 3.2 x10(3)/mc L [facility] Monocyte % 7.8 % [facility] Monocyte Abs 0.5 0.3 - 0.9 x10(3)/mc L [facility] Eos % 0.3 % [facility] Eosinophils Abs 0.0 0.0 - 0.4 x10(3)/mc L [facility] Basophil % 1.0 % [facility] Baso Absolute 0.1 0.0 - 0.1 x10(3)/mc L [facility] Immature Gran % 0.30 % [facility] Comment: Immature granulocytes(IG's)percentage and absolute count will include metamyelocytes, myelocytes, and promyelocytes. Blood smears from CBCs yielding IG's will be scanned manually for concordance. If this scan disagrees with the automated IG or if promyelocytes are noted, a manual differential will be performed. Immature Gran Absolute 0.02 0.00 - 0.04 x10(3)/mc L [facility] Blood 09/13/2021 10:3 0 AM EST 09/13/2021 11:04 AM EST Narrative Resulting Agency Comment Spec In Lab Lambert Casey MD HEMATOLOGY OR DERABLES [facility] [place] [address] * Hemogram (09/13/2021 10:30 AM EST) White Blood Cell 7.0 4.0 - 9.5 x10(3)/[facility] Red Blood Cell 5.08 4.58 - 5.54 x10(6)/[facility] Hemoglobin 16.2 13.7 - 16.5 g/dL [facility] Hematocrit 47.1 40.5 - 48.5 % [facility] Mean Cell Volume 92.7 82.9 - 93.1 fL [facility] Mean Cell Hemoglobin 31.9 27.5 - 32.1 pg [facility] Mean Cell Hemoglobin Concentration 34.4 32.0 - 35.7 g/dL [facility] Platelet 198 145 - 357 x10(3)/[facility] RDW Standard Deviation 41.8 36.0 - 45.0 fL [facility] RDW coefficient of variation 12.1 11.4 - 13.8 % [facility] Mean Platelet Volume 11.3 7.6 - 12.9 fL [facility] NRBC% auto 0.0 % [facility] NRBC Absolute 0.000 0.000 - 0.000 x10(3)/mcL [facility] Blood 09/13/2021 10:3 0 AM EST 09/13/2021 11:04 AM EST Narrative Resulting Agency Comment Spec In Lab Lambert Casey MD HEMATOLOGY OR DERABLES [facility] [place] [address] * Troponin (09/13/2021 10:30 AM EST) Troponin-T <0.01 0.00 - 0.00 ng/mL [facility] Comment: The 99th percentile for Troponin T is less than 0.01 ng/mL, any detectable cTnT concentration using this assay should be considered elevated. According to the third universal definition of myocardial infarction the following criteria with a clinical presentation consistent with acute myocardial ischemia meets the diagnosis for a myocardial infarction (MT). Detection of a rise and/or fall of cTnT, with at least one value greater than the 99th percentile (> or = 0.01) and with at least one of the following ?? Symptoms of ischemia ?? New or presumed new significant YH-oupfylj-R wave (ST-T) changes or new left bundle branch block (LBBB) ?? Development of pathologic Q waves in the ECG ?? Imaging evidence of new loss of viable myocardium or new regional wall motion abnormality ?? Identification of an intracoronary thrombus by angiography or autopsy Samples for cTnT testing should be obtained serially upon first assessment and again 3 to 6 hours later. If the clinical suspicion is high and previous samples have been negative an additional sample may be indicated. Reference: Third [place] Definition of Myocardial Infarction. Journal of the [place] [employer] 2012;60:1581-98 Blood 09/13/2021 10:3 0 AM EST 09/13/2021 11:04 AM EST Narrative Resulting Agency Comment Spec In Lab Danica Burgos MD CHEMISTRY ORDERABLES [facility] [place] [address] * (ABNORMAL) Basic Metabolic Panel (non-fasting) (09/13/2021 10:30 AM EST) Glucose 110 65 - 199 mg/dL [facility] Comment:Diabetes: >=200 mg/d L plus symptoms Blood Urea Nitrogen 20 10 - 20 mg/dL [facility] Creatinine 1.46 0.80 - 1.50 mg/dL [facility] Sodium 138 135 - 145 mmol/L [facility] Potassium 4.6 3.5 - 5.0 mmol/L [facility] Comment: Please note: ??Patients with WBC >100,000 may have falsely elevated Potassium levels. ??For accurate Potassium quantification in these patients send serum separator tube (gold top) for subsequent determinations. ??Contact the Clinical Chemistry Laboratory if there are any questions. Chloride 102 98 - 107 mmol/L [facility] Carbon Dioxide 24 22 - 31 mmol/L [facility] Anion Gap 12 5 - 15 mmol/L [facility] Calcium 9.8 8.5 - 10.5 mg/dL [facility] Est Glomerular Filtration Rate 52(L) >=60 mL/min/1. 73 m?? [facility] Comment: This patient? s estimated glomerular filtration rate (eGFR) is between 52 mL/min/1.73 m2 (patients with less muscle mass per kg body weight) and 60 mL/min/1.73 m2 (patients with more muscle mass per kg body weight) as determined by the CKD-EPI equation. Assessment of eGFR is not appropriate when creatinine concentrations are rapidly changing. For clinical decisions where creatinine clearance will affect therapy, a 24-hour urine creatinine clearance may be advised. Assignment of CKD stage 1 - 5 for patients with an eGFR near the transition point between stages may be based on clinical assessment of muscle mass and symptoms in addition to eGFR. Blood 09/13/2021 10:3 0 AM EST 09/13/2021 11:04 AM EST Narrative Resulting Agency Comment Spec In Lab Danica Burgos MD CHEMISTRY ORDERABLES Performing Organization Address City/[facility]/ZIP Co de Phone Number [facility] [place] [address] * POCT Glucose (09/13/2021 10:23 AM EST) Glucose, POC 98 65 - 199 mg/dL [facility] Comment: Supplemental ranges: <140 mg/dL before meals <180 mg/dL all other times of the day Blood 09/13/2021 10:2 3 AM EST 09/13/2021 10:23 AM EST Emergency Dept POINT OF CARE TEST ORDERABLES Performing Organization Address [facility] Co de Phone Number [facility] [place] [address] documented in this encounter Visit Diagnoses Diagnosis Transient global amnesia Transient global amnesia documented in this encounter Administered Medications Inactive Administered Medications - up to 3 most recent administrations Medication Order MAR Action Action Date Dose Rate Site iohexoL (Omnipaque) (350 mg/mL) solution 0-200 mL 0-200 mL, Intravenous, ONCE PRN, 1 dose, Starting on 09/13/21 at 1125, Until 09/13/21 at 1125, Per Protocol, Warning Vesicant/Irritant Medication , Radiology Contrast, Routine Given 09/13/2021 11:25 AM EST 65 mLs documented in this encounter Active and Recently Administered Medications Times are shown in EST. PRN Medication Order 09/11/2021 09/12/2021 09/13/2021 iohexoL (Omnipaque) (350 mg/mL) solution 0-200 mL (COMPLETED) 0-200 mL, Intravenous, ONCE PRN, 1 dose, Starting on 09/13/21 at 1125, Until 09/13/21 at 1125, Per Protocol, Warning Vesicant/Irritant Medication , Radiology Contrast, Routine 1125 (Given - Provid er: Edin J Snide Jr.) documented in this encounter Care Teams Legal Administrator Relationship Specialty Start Date End Date Luther Garrison DO [facility] [place] [place] [address] PCP - General General Internal Medicine 09/01/1902/05 documented as of this encounter
--- OUTSIDE RECORDS SUMMARY | 2024-06-09 02:54 | XMS_ITS | Encounter Summary ---
[place] [address] Care Team Providers Care Materials Analyst Name Role Phone Luther Garrison DO Primary Care Provider [phone] Reason for Visit * Reason Onset Date Comments Medication Problem 02/19/2021 Encounter Details Date Type Department Care Team (Late st Contact Info) Description 02/19/2021 [place] [address] Zenobia Caal Social History Tobacco Use Types Packs/Day Years [...] encounter Miscellaneous Notes * Telephone Encounter - Zenobia Caal - 02/19/2021 4:46 PM EDT Pharmacy or caller: [facility] Medication: lisinopriL (Prinivil;Zestril) 10 mg Tablet Message: Patient is calling stating he is on vacation in [place] and would like this prescription to be forwarded to the following pharmacy as he is now out of the medication: [facility] [id number] [place] [address] Did you contact your pharmacy?: yes documented in this encounter Plan of Treatment Upcoming Encounters Date Type Department Care Team (Late st Contact Info) Description 06/16/2024 4:00 PM EDT Office Visit [place] [phone] Betzaida Cope APRN [facility] [place] [address] 06/23/2024 2:00 PM EDT Appointment Non-[place]vasive [place] [phone] Owen Correia MD [facility] [place] [address] documented as of this encounter Visit Diagnoses Not on filedocumented in this encounter Care Teams Materials Analyst Relationship Specialty Start Date End Date Luther Garrison DO [facility] [place] [address] PCP - General General Internal Medicine 09/01/1902/05 documented as of this encounter
--- OUTSIDE RECORDS SUMMARY | 2024-06-09 02:54 | XMS_ITS | Encounter Summary ---
Author Organization [facility] [place] [address] Care Team Providers Care Bearing Inspector Name Role Phone Luther Garrison DO Primary Care Provider [phone] Reason for Visit * Reason Onset Date Comments Medication Refill 11/28/2021 Encounter Details Date Type Department Care Team (Late st Contact Info) Description 11/28/2021 Refill [place] [phone] Luther Garrison [facility] [place] [address] Social History Tobacco Use Types Packs/Day Years [...] PM EDT Office Visit Neph[place] [phone] Betzaida Cope APRN [facility] [place] [address] 06/23/2024 2:00 PM EDT Appointment Non-[place] [address] Owen Correia MD [facility] [place] [address] documented as of this encounter Visit Diagnoses Not on filedocumented in this encounter Care Teams Bearing Inspector Relationship Specialty Start Date End Date Luther Garrison DO [facility] [place] [address] PCP - General General Internal Medicine 09/01/1902/05 documented as of this encounter
--- OUTSIDE RECORDS SUMMARY | 2024-06-09 02:54 | XMS_ITS | Encounter Summary ---
Author Organization [facility] [place] [address] Care Team Providers Care Manager Functional Name Role Phone Luther Garrison DO Primary Care Provider [phone] Reason for Visit * Diagnostic Test (Routine) - Closed Specialty Diagnoses / Procedures Referred By Contac t Referred To Contact Radiology Diagnoses Ascending aortic aneurysm Procedures MRI Angiogram Chest wwo Contrast MRI Angiogram Chest w Contrast Geovani Phan MD [facility] [place] [address] [place] [address] Referral ID Status Reason Start Date Expiration Date V isits Requested Visits Authorized [id number] Closed Specialty Service Requested 04/11/2021 06/09/2021 1 1 Encounter Details Date Type Department Care Team (Latest Contact Info) Description 04/17/2021 9:25 AM EDT - 04/17/2021 11:59 PM EDT Hospital [place] [address] Geovani Phan MD [facility] [place] [address] Ascending aortic aneurysm Discharge Disposition: Home Social History Tobacco Use [...] 11/15/2020 10/31/2021 documented as of this encounter Plan of Treatment Upcoming Encounters Date Type Department Care Team (Late st Contact Info) Description 06/16/2024 4:00 PM EDT Office Visit [place] [address] Betzaida Cope APRN [facility] [place] [place] [address] 06/23/2024 2:00 PM EDT Appointment Non-[place] [phone] Owen Correia MD [facility] [place] [address] documented as of this encounter Procedures Procedure Name Priority Date/Time Associated Diagnosis Comments MRI CHEST ANGIOGRAM WITH AND WITHOUT CONTRAST Routine 04/17/2021 10:55 AM EDT Ascending aortic aneurysm documented in this encounter Results * MRI Angiogram Chest wwo Contrast (04/17/2021 10:55 AM EDT) Anatomical Region Laterality Modality Chest Magnetic Resonan ce Impressions 04/17/2021 3:09 PM EDT Stable dilatation of ascending thoracic aorta, mid ascending diameter 41 mm. Thank you for letting us participate in the care of this patient. ??If you are a health care provider and have any questions regarding this report, please contact the number below. ??For patients who have questions please contact the health campground caretaker that requested your imaging first. ? Electronically signed by: Estephania Campos MD, [facility] ([phone]), at 04/17/2021 3:09 PM Narrative 04/17/2021 3:09 PM EDT EXAMINATION: MRI ANGIOGRAM CHEST W CONTRAST CLINICAL HISTORY: Thoracic aortic aneurysm suspected, initial exam f/u aortic aneurysm size TECHNIQUE: Axial HASTE without intravenous contrast. Multiplanar cine steady-state free precession without intravenous contrast. Sagittal oblique, contrast-enhanced, 3-dimensional MR angiography after the intravenous administration of 12 mL Dotarem. Image subtraction was performed. Rotating MIP reconstructions and axial reformatted images were generated. COMPARISON: 07/06/2019. FINDINGS: Aortic root/sinuses of Valsalva: 35 mm (measured cusp to commissure, as on prior) Sinotubular ridge: Not effaced. 33 mm Mid ascending aorta: 41 mm Mid aortic arch: 27 mm Mid descending aorta: 24 mm Distal descending aorta, near hiatus: 22 mm Aortic arch branch vessels: Configuration: 3 vessels in classic configuration. Patency: Widely patent. Other cardiovascular findings: Trileaflet tricuspid aortic valve with opening area 3.1 cm^2. Noncardiovascular findings:Small curved opacity by the right lateral costophrenic sulcus, unchanged from 07/06/2019 MRI and, allowing for modality differences, from 03/08/[address] [facility] [address] Geovani Phan MD [facility] [place] ORDERABLES documented in this encounter Visit Diagnoses Diagnosis Ascending aortic aneurysm Thoracic aneurysm without mention of rupture documented in this encounter Administered Medications Inactive Administered Medications - up to 3 most recent administrations Medication Order MAR Action Action Date Dose Rate Site gadoterate meglumine (Dotarem) (0.5 mMol/mL) injection solution 0-100 mL 0-100 mL, Intravenous, ONCE PRN, 1 dose, Starting on Charlene 04/17/21 at 1100, Until Charlene 04/17/21 at 1100, Per Protocol, Radiology Contrast, Routine Given 04/17/2021 11:00 AM EDT 12 mLs documented in this encounter Care Teams Manager Functional Relationship Specialty Start Date End Date Luther Garrison DO [facility] [place] [address] PCP - General General Internal Medicine 09/01/1902/05 documented as of this encounter
--- OUTSIDE RECORDS SUMMARY | 2024-06-09 02:54 | XMS_ITS | Encounter Summary ---
Author Organization [facility] [place] [address] Care Team Providers Care Eeg Technician Name Role Phone Luther Garrison DO Primary Care Provider Reason for Referral * Physical Therapy (Routine) - Closed Specialty Diagnoses / Procedures Referred By Laura t Referred To Contact Physical Therapy Diagnoses Shoulder pain, unspecified chronicity, unspecified laterality Shoulder pain, unspecified chronicity, unspecified laterality Procedures Evaluate and Treat Luther Garrison [facility] [place] [address] [address] [place] [address] Referral ID Status Reason Start Date Expiration Date V isits Requested Visits Authorized [id number] Closed Evaluate and Treat 03/19/2021 03/19/2022 12 12 Reason for Visit * Reason Comments Annual Exam has some things to rashad milton with the provider. Encounter Details Date Type Department Care Team (Late st Contact Info) Description 03/19/2021 3:30 PM EDT Office [place] [address] Luther Garrison [facility] [place] [address] Renal artery stenosis; Shoulder pain, unspecified chronicity, unspecified laterality Social History Tobacco Use Types Packs/Day Years [...] Sign Reading Time Taken Comments Blood Pressure 113/76 03/19/2021 3:50 PM EDT Pulse 61 03/19/2021 3:50 PM EDT Temperature 37.1 ??C (98.7 ??F) 03/19/2021 3:50 PM ED T Respiratory Rate 16 03/19/2021 3:50 PM EDT Oxygen Saturation 100% 03/19/2021 3:50 PM EDT Inhaled Oxygen Concentration - - Weight 61.2 kg (135 lb) 03/19/2021 3:50 PM EDT a s stated Height 170.2 cm (5' 7) 03/19/2021 3:50 PM EDT a s stated Body Mass Index 21.14 03/19/2021 3:50 PM EDT documented in this encounter Progress Notes * Luther Garrison S, DO - 03/19/2021 3:30 PM EDT Patient ID: Moshe Castillo is a 60 y.o. male who has a past medical history of Dilation of thoracic aorta, HTN (hypertension), and Renal artery stenosis. Chief Complaint Patient presents with ??? Annual Exam has some things to discuss with the provider. Subjective: Patient is here for his annual and as well as some questions. Will list through them as the patientsays overall he has felt he is in good health. 1. Patient has been somewhat preoccupied about his single kidney and if he should have his creatinine levels checked and if he should see nephrology again. He denies any new symptoms such as fluid overload or swelling of his legs. 2. The patient is also concerned about his shoulder pain. He says when he sleeps on his side he will wake up with pain in the shoulder that he is lying on and he will be required to switch to left shoulder to relieve the pain. However, several hours later he will wake up again with pain down the new shoulder and he will switch again. He does say originally he was too weak to throw a ball however after he has started yoga the strength has improved somewhat. Is also got a new bed, however he does not know to what extent this treatment has helped. 3. The patient does state that he wakes up 2-3 times a night to go urinate. He is curious if this is normal there is anything that needs to be done. He denies any difficulty initiating a stream, denies any weak stream and feels that he empties his bladder appropriately. He does say that he has a single beer at about 8:30 PM as well as 6 ounces of water when taking his nighttime medications. 4. The patient confesses that he is not a huge fan of medications and is always looking to reduce his medication burden as possible. Stating that, he is wondering if the verapamil is completely necessary as his blood pressure has been really well controlled these past couple years. Not have any symptoms of high blood pressure such as headache or vision changes or chest pain or shortness of breath. Current Medications ??? lisinopriL (Prinivil;Zestril) 10 mg Tablet ??? verapamiL SR (Calan-SR) 180 mg Tablet Sustained Release ??? aspirin EC 81 mg Tablet, Delayed Release (E.C.) Family History Problem Relation Age of Onset ??? Myocardial Infarction Father 52 Social History Tobacco Use ??? Smoking status: Never Smoker ??? Smokeless tobacco: Never Used Vaping Use ??? Vaping Use: Never used Substance Use Topics ??? Alcohol use: Yes Alcohol/week: 7.0 standard drinks Types: 7 Cans of beer per week ??? Drug use: Never Past Medical History: Diagnosis Date ??? 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 HTN (hypertension) ??? Renal artery stenosis left renal artery Past Surgical History: Procedure Laterality Date ??? PRO COLONOSCOPY, DIAGNOSTIC N/A 03/05/2020 COLONOSCOPY, DIAGNOSTIC performed by Sonny Mike MD at [facility] Review of Systems: See HPI above Objective: BP 113/76 (BP Location (NBP): Right arm, Patient Position: Sitting, BP Cuff Sizes: Adult (25-34 cm)) Pulse 61 Temp 37.1 ??C (98.7 ??F) (Oral) Resp 16 Ht 170.2 cm (5' 7) Comment: as stated Wt 61.2 kg (135 lb) Comment: as stated SpO2 100% BMI 21.14 kg/m?? Examination: Gen: pleasant, in NAD, appropriate, AAOx3 HEENT: moist mucous membranes, PEERL, EOMI, sclera non-icteric and non-injected, oropharynx clear without lesions Neck: supple CV: RRR, normal S1 and S2, no m/r/g Resp: chest symmetric, breathing comfortably, CTABL, no wheezes Abd: +BS, soft, nontender, nondistended, no obvious masses Ext: warm, well-perfused, 2+ PT/DP pulses Neuro: CN II-XII grossly intact. Assessment and Plan: #Shoulder pain -Recommend physical therapy for now as patient does have full movement of his limbs. Likely needs some strength increase and potentially needs to change the way he did sleep, recommend adjusting to lying on his back completely worn his abdomen distended on his side. Failing that, can explore the use of support pillows. #Singular kidney -We will repeat a BMP. Patient has not seen nephrology in over a year, advised patient not unreasonable to reach out to nephrology clinic and schedule appointment. Advised that he should discuss verapamil stoppage with his commodities requirements analyst as he only has 1 kidney and any hypertension will put that 1 kidney at risk. #Nocturia -Does not sound like BPH, most likely due to sleep time habits of drinking beer before bed. Recommended either moving of your several hours or cutting the alcohol out altogether and see the result. If it does not improve, will explore possible BPH medications. * Kyler Syed MD - 03/19/2021 3:30 PM EDT I was physically present in the clinic and discussed the case with the resident [id number] at thetime of the visit or immediately after the visit. The assessment and plan were formulated in discussion with me and I agree with them as documented. I have reviewed the discussion, observations/physical exam, assessment and plan with the resident. Major issues discussed today: Moshe Castillo is a 60 year old male who presents today for an annual exam. He has CKD and previously was followed by nephrology but he hasn't seen Dr. Garrett in over a year. He also reports bilateral shoulder pain that is worse at night while sleeping on his side. On exam: Patient Vitals for the past 24 hrs: Temp Pulse Resp BP SpO2 03/19/21 1550 37.1 ??C (98.7 ??F) 61 16 113/76 100 % Plan: #CKD with history of renal artery stenosis -he plans to f/u with nephrology -repeat BMP today #bilateral shoulder pain -referral to PT documented in this encounter Plan of Treatment Upcoming Encounters Date Type Department Care Team (Late st Contact Info) Description 06/16/2024 4:00 PM EDT Office Visit [place] [phone] Betzaida Cope APRN [facility] [place] [address] 06/23/2024 2:00 PM EDT Appointment Non[place] [phone] Owen Correia MD [facility] [place] [address] Scheduled Referrals Name Type Priority Associated Diagnoses Orde r Schedule Referral to Physical Therapy Outpatient Referral Routine Shoulder pain, unspecified chronicity, unspecified laterality Ordered: 03/19/2021 documented as of this encounter Results * (ABNORMAL) Basic Metabolic Panel (non-fasting) (04/17/2021 7:45 AM EDT) Glucose 70 65 - 199 mg/dL [facility] Comment:Diabetes: >=200 mg/d L plus symptoms Blood Urea Nitrogen 16 10 - 20 mg/dL [facility] Creatinine 1.39 0.80 - 1.50 mg/dL [facility] Sodium 141 135 - 145 mmol/L [facility] Potassium 5.4(H) 3.5 - 5.0 mmol/L [facility] Comment: Please note: ??Patients with WBC >100,000 may have falsely elevated Potassium levels. ??For accurate Potassium quantification in these patients send serum separator tube (gold top) for subsequent determinations. ??Contact the Clinical Chemistry Laboratory if there are any questions. Chloride 104 98 - 107 mmol/L [facility] Carbon Dioxide 29 22 - 31 mmol/L [facility] Anion Gap 8 5 - 15 mmol/L [facility] Calcium 9.7 8.5 - 10.5 mg/dL [facility] Est Glomerular Filtration Rate 55(L) >=60 mL/min/1. 73 m?? [facility] Comment: This patient? s estimated glomerular filtration rate (eGFR) is between 55 mL/min/1.73 m2 (patients with less muscle mass per kg body weight) and 63 mL/min/1.73 m2 (patients with more muscle mass [...] and symptoms in addition to eGFR. Blood 04/17/2021 7:45 AM EDT 04/17/2021 7:48 AM EDT Narrative Resulting Agency Comment Spec In Lab Kyler Syed MD CHEMISTRY ORDERABLES [facility] [place] [address] documented in this encounter Visit Diagnoses Diagnosis Renal artery stenosis Atherosclerosis of renal artery Shoulder pain, unspecified chronicity, unspecified laterality documented in this encounter Care Teams Eeg Technician Relationship Specialty Start Date End Date Luther Garrison DO [facility] [place] [address] PCP - General General Internal Medicine 09/01/1902/05 documented as of this encounter
--- OUTSIDE RECORDS SUMMARY | 2024-06-09 02:54 | XMS_ITS | Encounter Summary ---
[place] [address] Care Team Providers Care Clinical Psychologist Private Practice Name Role Phone Luther Garrison DO Primary Care Provider [phone] Encounter Details Date Type Department Care Team (Late st Contact Info) Description 04/18/2021 Telephone [place] [phone] Lola Godfrey RN Social History Tobacco Use Types Packs/Day Years [...] encounter Miscellaneous Notes * Telephone Encounter - Lola Godfrey RN - 04/18/2021 5:24 PM EDT [facility] at [facility] Lab fax # [phone]. Pended lab order faxed to [facility] Lab. * Telephone Encounter - Lola Godfrey RN - 04/18/2021 4:12 PM EDT Please call this patient and ask him to avoid high potassium foods (bananas, oranges) and stay hydrated and that I will be ordering a recheck BMP that he should swing by the lab and get in the next 24 hours. -K+ 5.4. Spoke with patient-relayed above Provider message. Patient thankful for call. States he will have blood drawn tomorrow if we could sent the order over to [facility] at [place], [place]. Discussed dietary fruits, vegetables high in Potassium to avoid. Patient states He will do some research & check the foods He has planned to eat- to avoid high Potassium items. Discussed for any symptoms such as palpitations, lightheaded/dizziness to please be evaluated at nearest ER. Encouraged to Please continue to call or message with any questions, concerns or changes. Advised Dr Garrison will be in touch or one of nurses to update on repeat lab work results. Patient agrees with plan & will call with any needs, questions or concerns. documented in this encounter Plan of Treatment Upcoming Encounters Date Type Department Care Team (Late st Contact Info) Description 06/16/2024 4:00 PM EDT Office Visit [place] [phone] Betzaida Cope APRN [facility] [place] [address] 06/23/2024 2:00 PM EDT Appointment Non-[place]vasive [place] [phone] Owen Correia MD [facility] [place] [address] documented as of this encounter Results * (ABNORMAL) Basic Metabolic Panel (non-fasting) (04/19/2021 11:23 AM EDT) Glucose 89 65 - 199 mg/dL [facility] Comment:Diabetes: >=200 mg/d L plus symptoms Blood Urea Nitrogen 16 10 - 20 mg/dL [facility] Creatinine 1.41 0.80 - 1.50 mg/dL [facility] Sodium 140 135 - 145 mmol/L [facility] Potassium 4.8 3.5 - 5.0 mmol/L [facility] Comment: Please note: ??Patients with WBC >100,000 may have falsely elevated Potassium levels. ??For accurate Potassium quantification in these patients send serum separator tube (gold top) for subsequent determinations. ??Contact the Clinical Chemistry Laboratory if there are any questions. Chloride 103 98 - 107 mmol/L [facility] Carbon Dioxide 28 22 - 31 mmol/L [facility] Anion Gap 9 5 - 15 mmol/L [facility] Calcium 9.1 8.5 - 10.5 mg/dL [facility] Est Glomerular Filtration Rate 54(L) >=60 mL/min/1. 73 m?? [facility] Comment: This patient? s estimated glomerular filtration rate (eGFR) is between 54 mL/min/1.73 m2 (patients with less muscle mass per kg body weight) and 62 mL/min/1.73 m2 (patients with more muscle mass [...] and symptoms in addition to eGFR. Blood 04/19/2021 11:2 3 AM EDT 04/19/2021 12:39 PM EDT Narrative Resulting Agency Comment Spec In Lab Kyler Syed MD CHEMISTRY ORDERABLES [facility] [place] [address] documented in this encounter Visit Diagnoses Diagnosis Hyperkalemia Hyperpotassemia documented in this encounter Care Teams Clinical Psychologist Private Practice Relationship Specialty Start Date End Date Luther Garrison DO [facility] [place] [address] PCP - General General Internal Medicine 09/01/19/01/25 documented as of this encounter
--- OUTSIDE RECORDS SUMMARY | 2024-06-09 02:54 | XMS_ITS | Encounter Summary ---
Author Organization [facility] Address [facility] [place] [address] Care Team Providers Care Criminal Justice Teacher Name Role Phone Andi Thomas MD Primary Care Provider [phone] Encounter Details Date Type Department Care Team (Latest Contact Info) Description 04/08/2023 Travel Social History Tobacco Use Types Packs/Day [...] in a fpc (including now)? No 04/11/2022 Sex and Gender Information Value Date Recorded Sex Assigned at Not on file Gender Identity Not on file Sexual Orientation Not on file documented as of this encounter Plan of Treatment Upcoming Encounters Date Type Department Care Team (Late st Contact Info) Description 06/16/2024 4:00 PM EDT Office Visit Nephrology Hypertension at [place] [phone] Betzaida Cope APRN [facility] [place] [address] 06/23/2024 2:00 PM EDT Appointment Non-Invasive Cardiology Lab [address] Owen Correia MD [facility] [place] [address] documented as of this encounter Visit Diagnoses Not on filedocumented in this encounter Care Teams Criminal Justice Teacher Relationship Specialty Start Date End Date Andi Thomas MD [facility] [place] [address] PCP - General General Internal Medicine 03/01/22 documented as of this encounter
--- OUTSIDE RECORDS SUMMARY | 2024-06-09 02:54 | XMS_ITS | Encounter Summary ---
Author Organization [facility] [place] [address] Care Team Providers Care Road Mixer Operator Name Role Phone Luther Garrison DO Primary Care Provider [phone] Encounter Details Date Type Department Care Team (Late st Contact Info) Description 10/06/2021 2:00 PM EST Office [place] [address] Jp Dillon III, MD [facility] [place] [address] Arley Owen MD [facility] [place] [address] TGA (transient global amnesia) Social History Tobacco Use Types Packs/Day Years [...] Sign Reading Time Taken Comments Blood Pressure 118/85 10/06/2021 1:50 PM EST Pulse 69 10/06/2021 1:50 PM EST Temperature - - Respiratory Rate - - Oxygen Saturation - - Inhaled Oxygen Concentration - - Weight 62 kg (136 lb 11 oz) 10/06/2021 1:[address] Height 170.2 cm (5' 7) 10/06/2021 1:50 PM EST r eported Body Mass Index 21.41 10/06/2021 1:50 PM EST documented in this encounter Progress Notes * Arley Owen MD - 10/06/2021 2:00 PM EST Images from the original note were not included. Admit Date (Not on file) ( Hospital Day 0 days ) Responsible Attending: No att. providers found Primary Provider: Luther GarrisonDO [phone] Patient ID 60 yo M with pmhx [...] substance aside from 1 beer per day. Interval Events No return of symptoms and he has been at his baseline level of function. He has questions regardingprevention and risk of recurrence. He was curious about cognitive decline and risk factors for this. We reviewed his MRI with him. 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 with 3 children (2 high school age, one college-age). Enjoys exercise (running, basketball). Social Determinants of Health Financial Resource Strain: Not on file Food Insecurity: Not on file Transportation Needs: Not on file Physical Activity: Not on file Housing Stability: Not on file Physical Exam BP 118/85 Pulse 69 Ht 170.2 cm (5' 7) Comment: reported Wt 62 kg (136 lb 11 oz) BMI 21.41 kg/m?? Gen: Patient of apparent stated age, well nourished, well developed, awake, alert, NAD Neck: Supple, no meningismus Resp: normal respiratory effort Abd: soft, nontender, nondistended Ext: No edema. No bony deformity Neuro Exam: MS: AAOx4, clear language, no dysarthria, follows commands CN: PERRL, EOMI, visual yanes full Facial sensation intact, no facial asymmetry Hearing intact to conversation Palate elevates symmetrically, tongue protrudes midline SCM and trap strength intact Motor: Normal bulk and tone. Segment Muscle Action Left Right C5 Deltoid Shoulder Abduction 5 5 C6 Biceps Elbow flexion 5 5 C6 Extensor carpi radialis Wrist extension 5 5 C7 Triceps Elbow extension 5 5 C8 Finger flexors Grasp 5 5 T1 Interossei Finger abduction 5 5 L2 Iliopsoas Hip flexion 5 5 L3 Quadriceps Knee extension 5 5 L4 Tibialis anterior Dorsiflexion 5 5 L5 S1 Gastrocnemius Plantar flexion 5 5 Sensation: Intact to light touch throughout Reflexes: DTRs 2+ R, 2+ L Biceps 2+ R, 2+ L Brachioradialis 2+ R, 2+ L Triceps 2+ R, 2+ L Patellar 2+ R, 2+ L Achilles tendon Hill's negative Toes - deferred Coordination: Finger to nose intact, no dysmetria Rapid alternating movements & finger tapping smooth and symmetric No tremor Gait: Stable, steady BMP No results for input(s): NA, K, CL, CO2, BUN, CREATININE, GLUCOSE in the last 168 hours. No results for input(s): CALCIUM, MAGNESIUM, PHOS in the last 168 hours. CBC No results for input(s): WBC, HGB, HCT, PLATELET, MCV, NEUTROABS in the last 168 hours. Hepatic Function Tests and Coags No results for input(s): AST, ALT, ALKPHOS, BILITOT, BILIDIR, LDH in the last 168 hours. No results for input(s): INR, PT, PTT in the last 72 hours. Diabetes and Lipids No results for input(s): HA1C, EDUEW1A, BVW5EGPT, LABGLUC2, MICROALBUR in the last 168 hours. No results for input(s): CHLPL, HDL, TRIG, LDLDIRECT in the last 168 hours. Additional Testing No results for input(s): PHART, VPJ0VAB, PO2ART, BCO4VFS in the last 168 hours. No results for input(s): LDH, HAPTOGLOBIN, URICACID in the last 168 hours. Micro Microbiology Results (Last 30 days) Procedure Component Value Units Date/Time COVID-19 PCR [[id number]] Collected: 09/13/21 1235 Lab Status: Final result [...] using the Simplexa COVID-19 Direct Assay by [employer] as authorized by the FDA issued Emergency [...] Department of Pathology and Laboratory Medicine at [facility], certified under the Clinical Laboratory Improvement Amendments [...] fact sheets at the following FDA website: https://www.fda.gov/medical-devices/gowykjscvze-jolckxh-4855-ekssm-39-enwziioqb- swr-xipnpnxyluxjly-kaqftbo-devices/enelc-pquosumelzt-ymxu SARS-CoV-2 Source [facility] 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 MRI Brain wwo Contrast (Generic): 09/26/2021 1. No acute infarction, mass or mass effect. 2. No abnormal signal within the hippocampi. 3. No abnormal enhancement. XR Chest PA & Lateral (Generic): 09/13/2021 No acute process. Evidence of hyperinflation may reflect COPD. CT Angiogram Carotids & [place] of [place]: 09/13/2021 EXAMINATION: CT ANGIOGRAM CAROTIDS AND [place] OF [place] CLINICAL HISTORY: TIA, initial exam TECHNIQUE: CTA [...] proximal large vessel occlusions or aneurysms identified. No significant arterial vascular abnormalities. Assessment/Plan 60 yo M with pmhx of renal artery stenosis and HTN presenting with episode of AMS. Events are very unlikely to recur, he is extremely active and living a very healthy lifestyle. There are no additional risk factors aside from the usual HTN, cholesterol, healthy diet with variety of foods, routine oncologic screening and social living. It was a pleasure seeing him in clinic. # TGA - no further evaluation - follow up as needed if events return Arley Owen PGY-[address] Dillon * Jp Dillon III, MD - 10/06/2021 2:00 PM EST Neurology Attending Attestation I saw and evaluated Moshe Catsillo with Dr. Owen, neurology resident. I have reviewed the medical records and the patient's history during the visit and I agree with the details as written. My physical examination confirms the findings. The assessment and plan were formulated in discussion with me at the time of the visit and I agree with them as documented. Jp Dillon III, MD Die Drawing Checker Department of Neurology [facility] [address] P F 5:35 PM 10/13/2021 documented in this encounter Plan of Treatment Upcoming Encounters Date Type Department Care Team (Late st Contact Info) Description 06/16/2024 4:00 PM EDT Office Visit Ne[place] [phone] Betzaida Cope APRN [facility] [place] [address] 06/23/2024 2:00 PM EDT Appointment Non-Invasive [place] [phone] Owen Correia MD [facility] [place] [address] documented as of this encounter Visit Diagnoses Diagnosis TGA (transient global amnesia) Transient global amnesia documented in this encounter Care Teams Road Mixer Operator Relationship Specialty Start Date End Date Luther Garrison DO [facility] [place] [address] PCP - General General Internal Medicine 09/01/1902/05 documented as of this encounter
--- OUTSIDE RECORDS SUMMARY | 2024-06-09 02:54 | XMS_ITS | Encounter Summary ---
Author Organization [facility] Address [facility] [place] [address] Care Team Providers Care Geological Manager Name Role Phone Andi Thomas MD Primary Care Provider [phone] Reason for Referral * Physical Therapy (Routine) - Closed Specialty Diagnoses / Procedures Referred By Contac t Referred To Contact Physical Therapy Diagnoses Injury of meniscus of left knee, initial encounter Andi Thomas MD [facility] [place] [address] Unknown None Referral ID Status Reason Start Date Expiration Date V isits Requested Visits Authorized [id number] Closed Evaluate and Treat PCP Updated and/or Approved 04/08/2023 04/07/2024 12 12 Reason for Visit * Reason Comments Knee Pain Ongoing since November did have an injury to left hamstring however knee pain started several weeks after Encounter Details Date Type Department Care Team (Late st Contact Info) Description 04/08/2023 2:30 PM EDT Office [place] [address] Andi Thomas MD [facility] [place] [address] Injury of meniscus of left knee, initial encounter Social History Tobacco Use Types Packs/Day [...] in a residential (including now)? No 04/11/2022 Sex and Gender Information Value Date Recorded Sex Assigned at Not on file Gender Identity Not on file Sexual Orientation Not on file documented as of this encounter Last Filed Vital Signs Vital Sign Reading Time Taken Comments Blood Pressure 108/79 04/08/2023 2:33 PM EDT Pulse 63 04/08/2023 2:33 PM EDT Temperature 36.9 ??C (98.4 ??F) 04/08/2023 2:33 PM ED T Respiratory Rate 16 04/08/2023 2:33 PM EDT Oxygen Saturation 99% 04/08/2023 2:33 PM EDT Inhaled Oxygen Concentration - - Weight 61.1 kg (134 lb 9.6 oz) 04/08/2023 2:33 P M EDT Height - - Body Mass Index 21.08 11/14/2021 3:26 PM EST documented in this encounter Progress Notes * Moshe Valencia MD - 04/08/2023 2:30 PM EDT The case was discussed in person at the time of the visit or immediately after the visit. The assessment and plan were formulated in discussion with me and I agree with them as documented. I have reviewed the history, physical exam, assessment and plan with the resident. Major issues discussed today: 62 YOM here for left knee pain. Present since Oct and come on gradually following game of basketball during which he made a sudden direction change to intercept a pass. No effusion, pain is medially located. +subjective instability. No trauma. PE notable for neg brie,ant/post drawer and no varus or valgus laxity. + McmUrrays on deep flexion. Plan: Mild meniscal tear. Plan for PT and conservative management. If no improvement then would pursue imaging and Ortho referral * Andi Thomas MD - 04/08/2023 2:30 PM EDT General Internal Medicine Follow Up Note Patient [...] 2/2 renal artery stenosis, HTN, aortic dilatation here for left knee pain. Patient reported history of progressive worsening left knee pain and stiffness since November. His symptoms initially started in November with tightness and discomfort of the bilateral left knee especiallywhen he flexes his knee fully to his chest. His symptoms progressed to stiffness after sitting/lying down for a while. He also experienced feeling of unsteadiness when running. The symptoms graduallyworsened to pounding medial knee pain that onsets at random intervals. Of note he had a previous trauma history while playing basketball where he pivoted too fast a month prior to symptom onset. Patient has been using ice with good relief. He denied any fever, chills, nausea, vomiting, swelling, erythema, drainage, direct trauma. Review of Systems as per HPI Past Medical History: Diagnosis Date Dilation of thoracic aorta 4.1cm HTN (hypertension) Renal artery stenosis left renal artery Past Surgical History: Procedure Laterality Date PRO COLONOSCOPY, DIAGNOSTIC N/A 03/05/2020 COLONOSCOPY, DIAGNOSTIC performed by Sonny Mike MD at [facility] END[facility]COPY Outpatient Encounter Medications as of 04/08/2023 Medication Sig Dispense Refill cholecalciferol, Vitamin D3, 25 mcg (1,000 unit) Capsule Take 1 capsule by mouth daily. 90 capsule 3 ibuprofen (Advil) 200 mg tablet Take 200 mg by mouth every 6 hours as needed for Pain. lisinopriL (Zestril) 10 mg Tablet TAKE 1 TABLET BY MOUTH DAILY 90 tablet 3 aspirin EC 81 mg Tablet, Delayed Release (E.C.) Take 1 tablet by mouth daily. 90 tablet 5 No facility-administered encounter medications on file as of 04/08/2023. Allergies Allergen Reactions Amlodipine Other (See Comments) CHEST DISCOMFORT Pseudafen [Pseudoephedrine Hcl] Other (See Comments) Heart races Physical Exam Patient Vitals for the past 24 hrs: Temp Pulse Resp BP SpO2 04/08/23 1433 36.9 ??C (98.4 ??F) 63 16 108/79 99 % Constitutional/General: well-appearing, NAD EENT and Mouth: EOMI Lungs: CTA b/l no W/R/C Heart: RRR S1S2 no M/R/G Skin: no rashes noted ,no lesions MSK: Negative straight leg test bilaterally, no crepitus of the knees bilaterally, negative anterior and posterior drawer sign, positive Homer's test of the left. No tenderness to palpation, erythema, swelling, extra warmth, open lesion, drainage. Assessment Orders Placed This Encounter Procedures Referral to Physical Therapy 1. Injury of meniscus of left knee, initial encounter Plan: Moshe Castillo is a 62 y.o. 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 Patient presented with history of left knee pain/stiffness that proceeded with trauma month prior. Examination was positive for Homer. Based on this history and exam DDx include medial meniscal tear versus OA. Patient's positive Homer's test and history of prior trauma is more consistent withmedial meniscal tear. We have recommended RICE, Tylenol, and PT. We have discussed if these conservative therapies are not efficacious, we will consider pursuing other imaging modalities including MRI and as well as referral to orthopedic surgery. #Left knee pain #Medial meniscal tear versus OA - PT - RICE - Tylenol RTC as needed Andi Thomas MD 04/08/2023 documented in this encounter Plan of Treatment Upcoming Encounters Date Type Department Care Team (Late st Contact Info) Description 06/16/2024 4:00 PM EDT Office Visit Neph[place] [phone] Betzaida Cope APRN [facility] [address] 06/23/2024 2:00 PM EDT Appointment Non-Invasive Cardiology Lab [place] [phone] Owen Correia MD [facility] [address] Scheduled Referrals Name Type Priority Associated Diagnoses Orde r Schedule Referral to Physical Therapy Outpatient Referral Routine Injury of meniscus of left knee, initial encounter Ordered: 04/08/2023 documented as of this encounter Visit Diagnoses Diagnosis Injury of meniscus of left knee, initial encounter documented in this encounter Care Teams Geological Manager Relationship Specialty Start Date End Date Andi Thomas MD [facility] [place] [address] PCP - General General Internal Medicine 03/01/22 documented as of this encounter
--- OUTSIDE RECORDS SUMMARY | 2024-06-09 02:54 | XMS_ITS | Encounter Summary ---
Author Organization [facility] [place] [address] Care Team Providers Care Environmental Services Attendant Name Role Phone Luther Garrison DO Primary Care Provider [phone] Reason for Visit * Reason Comments Medication Refill Encounter Details Date Type Department Care Team (Late st Contact Info) Description 10/31/2021 Refill Cardiology at [address] [phone] Geovani Phan MD [facility] [place] [address] Medication Refill Social History Tobacco Use Types [...] PM EDT Office Visit Nephrology [place] [phone] Betzaida Cope APRN [facility] [place] [address] 06/23/2024 2:00 PM EDT Appointment Non-Invasive [place] [address] Owen Correia MD [facility] [place] [address] documented as of this encounter Visit Diagnoses Diagnosis Atypical chest pain- Primary Other chest pain documented in this encounter Care Teams Environmental Services Attendant Relationship Specialty Start Date End Date Luther Garrison DO [facility] [place] [address] PCP - General General Internal Medicine 09/01/1902/05 documented as of this encounter
--- OUTSIDE RECORDS SUMMARY | 2024-06-09 02:54 | XMS_ITS | Encounter Summary ---
[place] [address] Care Team Providers Care Supervisor Specialty Plant Name Role Phone Luther Garrison DO Primary Care Provider [phone] Reason for Visit * Reason Comments Medication Refill Encounter Details Date Type Department Care Team (Late st Contact Info) Description 01/31/2022 Refill Cardiology at [address] [address] Geovani Phan MD [facility] [place] [address] Medication Refill Social History Tobacco Use Types [...] encounter Miscellaneous Notes * Telephone Encounter - Brianna Cobian RN - 02/03/2022 6:27 AM EDT DIYA 01-03-20 FUV 02-11-22 No noted change to this med Requested Prescriptions Pending Prescriptions Disp Refills ??? aspirin EC 81 mg Tablet, Delayed Release (E.C.) [Pharmacy Med Name: ASPIRIN 81MG EC LOW DOSE TABLETS] 30 tablet 0 Sig: TAKE 1 TABLET BY MOUTH DAILY Brianna Cobian RN 4A Cardiology documented in this encounter Plan of Treatment Upcoming Encounters Date Type Department Care Team (Late st Contact Info) Description 06/16/2024 4:00 PM EDT Office Visit Neph[place] [phone] Betzaida Cope APRN [facility] NEPHR[facility] [place], [place] [phone] 06/23/2024 2:00 PM EDT Appointment Non-Invasive [place] [address] Owen Correia MD [facility] [place] [address] documented as of this encounter Visit Diagnoses Diagnosis Atypical chest pain Other chest pain documented in this encounter Care Teams Supervisor Specialty Plant Relationship Specialty Start Date End Date Luther Garrison DO [facility] [place] [address] PCP - General General Internal Medicine [birth year]02[birth year] documented as of this encounter
--- OUTSIDE RECORDS SUMMARY | 2024-06-09 02:54 | XMS_ITS | Encounter Summary ---
Author Organization [facility] Address [facility] [place] [address] Care Team Providers Care Aviation Maintenance Technician Name Role Phone Andi Thomas MD Primary Care Provider [phone] Reason for Visit * Reason Comments Annual Exam Forms that need to b e filled out. Spot on left arm. Muscle twitch below the knee of both legs. Muscle cramping all over. 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 No 04/11/2022 Sex and Gender Information Value Date Recorded Sex Assigned at Not on file Gender Identity Not on file Sexual Orientation Not on file documented as of this encounter Last Filed Vital Signs Vital Sign Reading Time Taken Comments Blood Pressure 112/85 04/14/2022 3:28 PM EDT Pulse 61 04/14/2022 3:28 PM EDT Temperature 37 ??C (98.6 ??F) 04/14/2022 3:28 PM EDT Respiratory Rate - - Oxygen Saturation 98% 04/14/2022 3:28 PM EDT Inhaled Oxygen Concentration - - Weight 60.2 kg (132 lb 12.8 oz) 04/14/2022 3:28 PM EDT Height - - Body Mass Index 20.8 11/14/2021 3:26 PM EST documented in this encounter Progress Notes * Andi Thomas MD - 04/14/2022 3:30 PM EDT General Internal Medicine Follow Up Note Patient Active Problem List Diagnosis Code ??? Nevus D22.9 ??? Family history of malignant melanoma Z80.8 ??? Elevated serum creatinine R79.89 ??? Renal artery stenosis I70.1 ??? Atypical chest pain R07.89 ??? Lung nodule, solitary R91.1 ??? HTN (hypertension) I10 HPI: Moshe Castillo is a 61 y.o. 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 Patient coming in for skin lesion on L forearm and pre employment screening. Patient reported new skin lesion starting on his Left forearm that initially was not raised and reddish pink colored. The lesion has progressively become raised but w/o bleed/ooze/pain/puritis. Pt denied similar lesions in the past and denied its presence on last visit with dermatology on 04/2021. Patient denied SILVA, dizziness, f/c, n/v, falls, changes in vision, SOB, CP, diarrhea, dysuria. Review of Systems (as above) Past Medical History: Diagnosis Date ??? 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 HTN (hypertension) ??? Renal artery stenosis left renal artery Past Surgical History: Procedure Laterality Date ??? PRO COLONOSCOPY, DIAGNOSTIC N/A 03/05/2020 COLONOSCOPY, DIAGNOSTIC performed by Sonny Mike MD at [facility] ENDOSCOPY Outpatient Encounter Medications as of 04/14/2022 Medication Sig Dispense Refill ??? lisinopriL (Zestril) 10 mg Tablet Take 1 tablet by mouth daily. 90 tablet 0 ??? aspirin EC 81 mg Tablet, Delayed Release (E.C.) Take 1 tablet by mouth daily. 90 tablet 5 No facility-administered encounter medications on file as of 04/14/2022. Allergies Allergen Reactions ??? Amlodipine Other (See Comments) CHEST DISCOMFORT ??? Pseudafen [Pseudoephedrine Hcl] Other (See Comments) Heart races Physical Exam Patient Vitals for the past 24 hrs: Temp Pulse BP SpO2 04/14/22 1528 37 ??C (98.6 ??F) 61 112/85 98 % Constitutional/General: well-appearing, NAD Heart: RRR S1S2 no M/R/G Abdomen: NABS; soft, nontender to palpation, no masses or organomegaly. Neurologic: non-focal and appears grossly intact Skin: no rashes noted, L forearm raised lesion rough whitish center w/ smooth reddish/pink borders w/o tenderness, bleed, ooze. No other lesions noted. Assessment Orders Placed This Encounter Procedures ??? CBC (with Diff) ??? Hepatitis B Surface Antigen ??? Hepatitis C Antibody ??? Comprehensive metabolic panel (non-fasting) ??? Lipid Panel (Reflex Direct LDL) ??? QuantiFERON-TB Gold ??? HIV Screen, 4th Generation ([facility]) ??? Syphilis Screening Antibody with reflex RPR ??? EKG 12 Lead 1. Annual physical exam 2. Acquired dilation of ascending aorta and aortic root Plan: Moshe Castillo is a 61 y.o. 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 Patient coming in for skin lesion on L forearm and pre employment screening Skin lesion likely actinic keratosis vs Basal cell carcinoma vs Squamous cell carcinoma Patient advised to call his hospital liaison for evaluation. HTN Well controlled on lisinopril 10mg daily Aortic dilation ~4.1 cm MRA in 3-5 years Following with cardiology Continue lisinopril for HTN control Renal artery Stenosis w/ infarcted left kidney Following with cardiology Pre employment screening CBC, CMP, HEP B, HEP C, RPR, HIV, Lipid panel, TB Gold Andi Thomas MD 04/14/2022 * Zahraa Hansen MD - 04/14/2022 3:30 PM EDT I have seen the patient in clinic and reviewed the resident's above history and I agree with the details as written. The assessment and plan were formulated in discussion with me and I agree with them as documented. 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 Escamilla's note for exam findings Major issues addressed: AK v BCC HTN, adequately controlled (systolic well in range, diastolic borderline) Dilated thoracic aorta (4.1 cm) Pre-employment physical Plan: Schedule appt with hospital liaison Continue lisinopril 3-5 year follow up MRA Check labs required for physical - CBC, CMP, HgbA1C, HBV, HCV, RPR, HIV, lipids, interferon gold; EKG documented in this encounter Plan of Treatment Upcoming Encounters Date Type Department Care Team (Late st Contact Info) Description 06/16/2024 4:00 PM EDT Office Visit [place] [phone] Betzaida Cope, [facility] [place] [address] 06/23/2024 2:00 PM EDT Appointment Non-Invasive [place] [phone] Owen Correia MD [facility] [place] [address] Scheduled Orders Name Type Priority Associated Diagnoses Orde r Schedule EKG 12 Lead ECG Routine Annual physical exam Expected: 04/14/2022 (Approximate), Expires: 04/14/2023 documented as of this encounter Visit Diagnoses Diagnosis Annual physical exam- Primary Routine general medical examination at a health care facility 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
--- OUTSIDE RECORDS SUMMARY | 2024-06-09 02:54 | XMS_ITS | Encounter Summary ---
Author Organization [facility] [place] [address] Care Team Providers Care Saturation Diver Name Role Phone Bladimir Luther Hernandez DO Primary Care Provider [phone] Encounter Details Date Type Department Care Team (Late st Contact Info) Description 01/30/2022 Orders Only Cardiology at [address] [phone] Geovani Phan MD [facility] [place] [address] Renal artery stenosis (Primary Dx); Hypertension, unspecified type; Ascending Aortic dilatation Social History Tobacco Use Types [...] PM EDT Office Visit Neph[place] [address] Betzaida Cope APRN [facility] [place] [address] 06/23/2024 2:00 PM EDT Appointment Non-Invasive [place] [address] Owen Correia MD [facility] [place] [address] documented as of this encounter Visit Diagnoses Diagnosis Renal artery stenosis- Primary Atherosclerosis of renal artery Hypertension, unspecified type Ascending Aortic dilatation Aortic ectasia, unspecified site documented in this encounter Care Teams Saturation Diver Relationship Specialty Start Date End Date Luther Garrison DO [facility] [place] [address] PCP - General General Internal Medicine 09/[birth year]/1902/05 documented as of this encounter
--- OUTSIDE RECORDS SUMMARY | 2024-06-09 02:54 | XMS_ITS | Encounter Summary ---
Author Organization [facility] [place] [address] Care Team Providers Care Certified Medical Records Coder Name Role Phone Andi Thomas MD Primary Care Provider Encounter Details Date Type Department Care Team (Late st Contact Info) Description 10/27/2022 Telephone Ne[place] [address] Anitra Sherman Social History Tobacco [...] place to sleep or slept in a retirement (including now)? No 04/11/2022 Sex and Gender Information Value Date Recorded Sex Assigned at Not on file Gender Identity Not on file Sexual Orientation Not on file documented as of this encounter Miscellaneous Notes * Telephone Encounter - Anitra Sherman - 10/27/2022 9:18 AM EST LM for patient to call and schedule a follow up appointment with Haylee Ta APRN documented in this encounter Plan of Treatment Upcoming Encounters Date Type Department Care Team (Late st Contact Info) Description 06/16/2024 4:00 PM EDT Office Visit [place] [phone] Betzaida Cope APRN [facility] [place] [address] 06/23/2024 2:00 PM EDT Appointment Non[place] [address] Owen Correia MD [facility] [place] [address] documented as of this encounter Visit Diagnoses Not on filedocumented in this encounter Care Teams Certified Medical Records Coder Relationship Specialty Start Date End Date Andi Thomas MD [facility] [place] [address] PCP - General General Internal Medicine 03/01/22 documented as of this encounter
--- OUTSIDE RECORDS SUMMARY | 2024-06-09 02:54 | XMS_ITS | Encounter Summary ---
Author Organization [facility] [place] [address] Care Team Providers Care Lithographed Plate Inspector Name Role Phone Luther Garrison DO Primary Care Provider [phone] Encounter Details Date Type Department Care Team (Latest Contact Info) Description 11/14/2021 3:30 PM EST Office Visit Neph[place] [address] Haylee Ta OIL PIPELINE DISPATCHER [facility] [place] [address] Renal infarction; Renal artery stenosis; Hypertension, unspecified type Social History Tobacco Use Types Packs/Day Years [...] Sign Reading Time Taken Comments Blood Pressure 126/82 11/14/2021 3:26 PM EST Pulse 89 11/14/2021 3:26 PM EST Temperature - - Respiratory Rate - - Oxygen Saturation - - Inhaled Oxygen Concentration - - Weight 62.6 kg (138 lb) 11/14/2021 3:26 PM EST Height 170.2 cm (5' 7) 11/14/2021 3:26 PM EST Body Mass Index 21.61 11/14/2021 3:26 PM EST documented in this encounter Progress Notes * Haylee Ta, OIL PIPELINE DISPATCHER - 11/14/2021 3:30 PM EST Nephrology/Hypertension Clinic Follow-up Note [id number] ID: 61 y.o.year-old male for follow up of 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 Past Medical History: Patient Active Problem List Diagnosis Code ??? Nevus D22.9 ??? Family history of malignant melanoma Z80.8 ??? Elevated serum creatinine R79.89 ??? Renal artery stenosis I70.1 ??? Atypical chest pain R07.89 ??? Lung nodule, solitary R91.1 ??? HTN (hypertension) I10 Outpatient Encounter Medications as of 11/14/2021 Medication Sig Dispense Refill ??? aspirin EC 81 mg Tablet, Delayed Release (E.C.) Take 1 tablet by mouth daily. 90 tablet 0 ??? lisinopriL (Prinivil;Zestril) 10 mg Tablet Take 1 tablet by mouth daily. 90 tablet 0 ??? verapamiL SR (Calan-SR) 180 mg Tablet Sustained Release Take 1 tablet by mouth daily. 90 tablet3 No facility-administered encounter medications on file as of 11/14/2021. Allergies Allergen Reactions ??? Amlodipine Other (See Comments) CHEST DISCOMFORT ??? Pseudafen [Pseudoephedrine Hcl] Other (See Comments) Heart races S: He was last seen by nephrology on 01/03/2020. Interval history - No recent hospitalizations, surgeries, new diagnoses. 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 Today he reports feeling well. Energy level been good, he is exercising regularly. Wakes often at night, is able to get back to sleep. Nocturia 1-2 times per night. He feels he is able to empty his bladder. No SOB or cough. No chset pain/pressure. Appetite great. No N/V. No changes in urination. Tries to stay hydrated. No joint pain/muscle pain. O: UA: SG 1.020, pH 5, no heme, no leuk, no protein, no gluc BP 126/82 Pulse 89 Ht 170.2 cm (5' 7) Wt 62.6 kg (138 lb) BMI 21.61 kg/m?? General: ??Alert, comfortable.??Cooperative with exam. HEENT - Sclera white. Mucous membranes moist.??No lymphadenopathy. CV: ??S1 and S2, no murmur, gallop or rub.??HR??irregular.??JVP not elevated. Resp: ??Lungs clear. ??Respirations non labored. Abd: ??Soft. ??+ BS. ??No bruit. ??Non tender.?? : No CVA tenderness. Ext: ??Warm. ??No cyanosis. ??No edema. Skin: No rash. No pruritis. ?? Neuro: Intact.??No asterixis. Psych: ??Mood appropriate Labs: Labs drawn at OSH and located in media. Significant for BUN 17, Cre 1.5, eGFR 47. 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 Normal renal function with no sequela such as anemia or secondary hyperparathyroidism. BP well controlled. No proteinuria. Recommend continuing current medications. Pt inquired whether he could stop one of his antihypertensives. We discussed that if he felt strongly about stopping a medication, would recommend stopping Verapamil and monitoring BP at home for at least 2 weeks. After discussion, he will continue current medications. Follow up in 1 year >the total time spent [id number] AND total time the provider spent counseling was 30 minutes. CC: Luther Garrison, DO @[email or web address]@ documented in this encounter Plan of Treatment Upcoming Encounters Date Type Department Care Team (Late st Contact Info) Description 06/16/2024 4:00 PM EDT Office Visit Nephrology [place] [phone] Betzaida Cope APRN [facility] [place] [address] 06/23/2024 2:00 PM EDT Appointment [place] [phone] Owen Correia MD [facility] [place] [address] documented as of this encounter Visit Diagnoses Diagnosis Renal infarction Vascular disorders of kidney Renal artery stenosis Atherosclerosis of renal artery Hypertension, unspecified type documented in this encounter Care Teams Lithographed Plate Inspector Relationship Specialty Start Date End Date Luther Garrison DO [facility] [place] [address] PCP - General General Internal Medicine 09/[birth year]/1902/05 documented as of this encounter
--- OUTSIDE RECORDS SUMMARY | 2024-06-09 02:54 | XMS_ITS | Encounter Summary ---
[place] [address] Care Team Providers Care Senior Site Manager Name Role Phone Luther Garrison DO Primary Care Provider [phone] Reason for Visit * Reason Onset Date Comments Appointment 09/15/2021 Encounter Details Date Type Department Care Team (Late st Contact Info) Description 09/15/2021 [place] [address] Arley Owen MD [facility] [place] [address] Appointment Social History Tobacco Use Types Packs/Day [...] encounter Miscellaneous Notes * Telephone Encounter - María Elena Zuñiga - 09/22/2021 3:35 PM EST LVM to book MRI before his upcoming appointment with Dr Owen. Letter sent * Telephone Encounter - María Elena Zuñiga - 09/17/2021 8:45 AM EST Patient needs to book MRI before his appt with Dr Owen on 10/06/21. * Telephone Encounter - María Elena Zuñiga - 09/15/2021 9:37 AM EST Scheduling Instructions Provider: Arley Owen Visit Type (paste JOSÉ MIGUEL Instructions or manually enter): Hospital Check Appt Note: Hospital Check Transient global amnesia Additional Info Needed: Patient needs first avaliable hospital check appt with [facility] or any PGY4 in the next 2-3 weeks. documented in this encounter Plan of Treatment Upcoming Encounters Date Type Department Care Team (Late st Contact Info) Description 06/16/2024 4:00 PM EDT Office Visit Neph[place] [phone] Betzaida Cope, [facility] [place] [address] 06/23/2024 2:00 PM EDT Appointment Non-Invasive Cardiology Lab [place] [phone] Owen Correia MD [facility] [place] [address] documented as of this encounter Visit Diagnoses Not on filedocumented in this encounter Care Teams Senior Site Manager Relationship Specialty Start Date End Date Luther Garrison DO [facility] [address] PCP - General General Internal Medicine 09/[birth year]/1902/05 documented as of this encounter
--- OUTSIDE RECORDS SUMMARY | 2024-06-09 02:54 | XMS_ITS | Encounter Summary ---
Author Organization [facility] [address] Care Team Providers Care Sail Maker Name Role Phone Andi Thomas MD Primary Care Provider Reason for Referral * Physical Therapy (Routine) - Closed Specialty Diagnoses / Procedures Referred By Laura ca Referred To Contact Diagnoses Low back pain, non-specific Lucia Christian APRN [facility] [place] [address] Unknown None Referral ID Status Reason Start Date Expiration Date V isits Requested Visits Authorized [id number] Closed Evaluate and Treat 10/23/2022 04/21/2023 12 12 Reason for Visit * Reason Comments Follow-up Encounter Details Date Type Department Care Team (Late st Contact Info) Description 10/23/2022 5:00 PM EST Office [place] [address] Lucia Christian APRN [facility] [place] [address] Screening for prostate cancer; Low back pain, non-specific Social History Tobacco Use Types Packs/Day Years [...] in a detention (including now)? No 04/11/2022 Sex and Gender Information Value Date Recorded Sex Assigned at Not on file Gender Identity Not on file Sexual Orientation Not on file documented as of this encounter Last Filed Vital Signs Vital Sign Reading Time Taken Comments Blood Pressure 122/88 10/23/2022 5:06 PM EST Pulse 75 10/23/2022 5:06 PM EST Temperature - - Respiratory Rate 16 10/23/2022 5:06 PM EST Oxygen Saturation 100% 10/23/2022 5:06 PM EST Inhaled Oxygen Concentration - - Weight - - Height - - Body Mass Index - - documented in this encounter Patient Instructions * Attachments The following attachments cannot be sent through Care Everywhere. * Low Back Pain: Exercises (Nigerien) * Tremor: Essential (Nigerien) documented in this encounter Progress Notes * Raven Gill RN - 10/23/2022 5:00 PM EST Subjective Patient ID: Moshe Castillo is a 61 y.o. male. HPI Evaluation today was performed: [] By video conference [x] In-person PPE used during in-person evaluation: [] Gloves [] Gown [] Goggles [] Face-shield [x] Level 2 mask [] N-95 [] PAPR Over the last few months, pt has noticed he has an intermittent tremor to his left hand which seemsto be most noticeable when he is holding something in that hand. No other neurologic complaints. Whereby his left is not his dominant hand, he often does not use it frequently but does recall it happening about 20% of the time when picking something up. Concerned after having a friend pass away from prostate cancer and requesting PSA screening. Does report frequent voiding. 3 - 4 weeks of worsening low back pain after turning a certain way while playing basketball. After getting up in the am, feels the need to lie on hard surface. Yoga seems to help. Denies any urinary complaints. Review of Systems Genitourinary: Concerned re: prostate cancer yet no urinary complaints. Musculoskeletal: Positive for back pain. Neurological: Positive for tremors. All other systems reviewed and are negative. Objective Physical Exam Vitals reviewed. Constitutional: Appearance: Normal appearance. He is normal weight. HENT: Head: Normocephalic. Pulmonary: Effort: Pulmonary effort is normal. Abdominal: General: Abdomen is flat. Musculoskeletal: General: Normal range of motion. Cervical back: Normal range of motion. Skin: General: Skin is warm. Capillary Refill: Capillary refill takes less than 2 seconds. Neurological: General: No focal deficit present. Mental Status: He is alert and oriented to person, place, and time. Psychiatric: Mood and Affect: Mood normal. Behavior: Behavior normal. Thought Content: Thought content normal. Judgment: Judgment normal. Assessment and Plan Moshe was seen today for follow-up . Diagnoses and all orders for this visit: Screening for prostate cancer - PSA (Ultrasensitive); Future - PSA (Ultrasensitive) Low back pain, non-specific - Referral to Physical Therapy * Lucia Christian APRN - 10/23/2022 5:00 PM EST This visit was performed jointly with student Raven Gill RN, TRANSPLANT CASE MANAGER student. The patient???s history was validated in the patient???s presence. I performed the full exam as documented by the student I personally reviewed all applicable documented studies and diagnostic images. The assessment and plan was formulated at my direction, in summary Moshe was seen today for follow-up . Diagnoses and all orders for this visit: Screening for prostate cancer - PSA (Ultrasensitive); Future - PSA (Ultrasensitive) Low back pain, non-specific - Referral to Physical Therapy documented in this encounter Plan of Treatment Upcoming Encounters Date Type Department Care Team (Late st Contact Info) Description 06/16/2024 4:00 PM EDT Office Visit Nephrology [place] [address] Betzaida Cope APRN [facility] [address] 06/23/2024 2:00 PM EDT Appointment Non-[place] [phone] Owen Correia MD [facility] [place] [address] Scheduled Referrals Name Type Priority Associated Diagnoses Orde r Schedule Referral to Physical Therapy Outpatient Referral Routine Low back pain, non-specific Ordered: 10/23/2022 documented as of this encounter Procedures Procedure Name Priority Date/Time Associated Diagnosis Comments HC VENIPUNCTURE Routine 10/23/2022 5:38 PM EST Screening for prostate cancer documented in this encounter Results * PSA (Ultrasensitive) (10/23/2022 5:38 PM EST) Prostate Specific Antigen (Ultrasensitive) 0.73 0.00 - 4.00 ng/mL [facility] Comment: PLEASE NOTE: The above reference interval is intended for healthy males with an intact prostate. Values within this reference interval may indicate recurrence in men who have undergone radical prostatectomy. This result was generated using a Deion Mnoique immunoassay. ??Results obtained from other methods or manufacturers cannot be used interchangeably with this method. Blood 10/23/2022 5:38 PM EST 10/23/2022 5:41 PM EST Narrative Resulting Agency Comment Spec In Lab Lucia Christian APRN CHEMISTRY ORDERABLES [facility] [place] [address] documented in this encounter Visit Diagnoses Diagnosis Screening for prostate cancer Special screening for malignant neoplasm of prostate Low back pain, non-specific documented in this encounter Care Teams Sail Maker Relationship Specialty Start Date End Date Andi Thomas MD [facility] [place] [address] PCP - General General Internal Medicine 03/01/22 documented as of this encounter
--- OUTSIDE RECORDS SUMMARY | 2024-06-09 02:54 | XMS_ITS | Encounter Summary ---
Author Organization [facility] [place] [address] Care Team Providers Care Quality Assurance Representative Name Role Phone Andi Thomas MD Primary Care Provider [phone] Encounter Details Date Type Department Care Team (Late st Contact Info) Description 03/17/2022 Telephone [place] [phone] Andi Thomas MD [facility] [place] [address] Social History Tobacco Use Types Packs/Day Years [...] encounter Miscellaneous Notes * Telephone Encounter - Sadie Roque - 03/17/2022 11:57 AM EDT Requested test or order: Physical Labs Reason requesting test or order: Physical Date patient wants to come in: Walk in Location where patient wants it to be performed (if an outside facility, please include name of facility and phone/fax number): [facility] lab Caller and relationship (if other than patient-full name): Self Moshe Castillo Best time to call back: Any Ok to leave a message: Yes Ok to send my- message no documented in this encounter Plan of Treatment Upcoming Encounters Date Type Department Care Team (Late st Contact Info) Description 06/16/2024 4:00 PM EDT Office Visit Neph[place] [phone] Betzaida Cope APRN [facility] [place] [address] 06/23/2024 2:00 PM EDT Appointment Non-Invasive [place] [phone] Owen Correia MD [facility] [place] [address] documented as of this encounter Visit Diagnoses Diagnosis Renal infarct Vascular disorders of kidney Lightheadedness Dizziness and giddiness documented in this encounter Care Teams Quality Assurance Representative Relationship Specialty Start Date End Date Andi Thomas MD [facility] [place] [address] PCP - General General Internal Medicine 03/01/22 documented as of this encounter
--- OUTSIDE RECORDS SUMMARY | 2024-06-09 02:54 | XMS_ITS | Encounter Summary ---
Author Organization [facility] [address] Care Team Providers Care Factory Laborer Name Role Phone Luther Garrison DO Primary Care Provider [phone] Encounter Details Date Type Department Care Team (Latest Contact Info) Description 02/11/2022 3:00 PM EDT TH Visit (TeleHealth) Cardiology at [address] [address] Geovani Phan MD [facility] [place] [address] Segmental arterial mediolysis; Hypertension, unspecified type Social History Tobacco Use [...] as of this encounter Progress Notes * Geovani Phan MD - 02/11/2022 3:00 PM EDT CARDIOLOGY/VASCULAR MEDICINE TELE VISIT NOTE Moshe Trung Castillo 02/10/22 The patient consented to this being a virtual visit. HPI: Mr. Castillo is a very pleasant 60 year old man whom I met on 04/03/19 for an opinion regarding left renal artery stenosis and infract. He was admitted to [facility] medicine service from 11/26-12/01/18 due to bloating and left flank pain after being diagnosed with PNA; his initial work-up showed severe left renal artery stenosis c/b renal infarct. He had extensive work-up including TTE, DELON/ANCA, Ziopatch w/o atrial arrhythmia, renal study with nonfunctioning kidney (this is reason he was not intervened upon). We had obtained MRA head/neck and chest/abdomen/pelvis to look for dissections or other vascular abnormalities as I wondered whether his presentation could be due to FMD or segmental arterial mediolysis. MRA head/neck unremarkable. MRA abdomen showed enhancement of left renal cortex on delayedpostcontrast images, suggestive of critical left renal artery stenosis rather than total occlusion (this was previously seen on prior MRA although functional study showed non-functioning kidney twice). MRA chest showed no evidence of dissections; ascending thoracic aorta is 4.1 cm. I last talked to him via telehealth on 01/03/2020. Repeat MRA chest in April 2021 with 4.1 cm ascending aorta. In September 2021, he presented with altered mental status - work-up was unrevealing, thought to be transient global amnemia. Very active, running 2-3 times/week, playing basketball - no chest pain or shortness of breath. Lightheaded once in a while if stands up too quickly. Brief ROS: Activity level: Very active on every day basis No new orthopnea, PND, LE edema. No lightheadedness, dizziness, syncope/pre- syncope. No new CP. Medications: Current Outpatient Medications Medication Sig Dispense Refill ??? verapamiL SR (Calan-SR) 180 mg Tablet Sustained Release TAKE 1 TABLET BY MOUTH DAILY 90 tablet 3 ??? aspirin EC 81 mg Tablet, Delayed Release (E.C.) TAKE 1 TABLET BY MOUTH DAILY 30 tablet 0 ??? lisinopriL (Zestril) 10 mg Tablet Take 1 tablet by mouth daily. 90 tablet 0 Medications were reviewed with patient. Objective Data: VS at home: 110s-120s. Labs: Lab Results Component Value Date WBC 7.0 09/13/2021 HGB 16.2 09/13/2021 HCT 47.1 09/13/2021 MCV 92.7 09/13/2021 PLATELET 198 09/13/2021 No results for input(s): NA, K, CL, CO2, BUN, CREATININE, GLUCOSE in the last 168 hours. Lab Results Component Value Date INR 1.1 11/26/2018 Lab Results Component Value Date CHLPL 139 11/27/2018 HDL 41 11/27/2018 CHOLHDL 3.4 11/27/2018 LDLDIRECT 99 11/27/2018 EKG??12/19/18:??NSR 61 bpm, non-specific ST-T wave abnormality ?? Stress??TTE??12/19/18: 1. BASELINE ECHO: There is normal global left ventricular systolic function. ??Ejection fraction is estimated to be 65%. There are no left ventricular segmental wall motion abnormalities. Right ventricular global systolic function is normal. There is no evidence of aortic valve stenosis. Mild (1+/4+) aortic valve regurgitation is present. There is mild (1+/4+) mitral regurgitation present. There is mild (1+/4+) tricuspid regurgitation present. The pericardium appears normal and there is no evidence of a pericardial effusion. There is mild dilatation of the ascending aorta. 2. PEAK STRESS ECHO: Global left ventricular systolic function appears hyperdynamic. LVEF 70%. There are no left ventricular segmental wall motion abnormalities. 3. STRESS TEST: Patient followed a Adam protocol. The patient exercised into stage 4. The total exercise duration was:10:45 min:sec. The patient achieved a level of 13 METS. Peak HR 160 BPM, which is 98% max predicted. Max BP 152/80 mmHg. The study was terminated because of fatigue, dyspnea and mild lightheadedness. The patient did not express feelings of chest discomfort. There were rare atrial premature beat and rare ventricular premature beats. There was up to 1.0 mm of horizontal to downsloping ST segment depressions; borderline positive ECG for ischemia. 4. CONCLUSIONS: Patient achieved adequate exercise workload; no chest discomfort. Normal baseline and stress echo images. Borderline positive ECG for ischemia. ?? Ziopatch 01/20/19: Conclusion: This monitor study was remarkable for sinus rhythm. Infrequent nonsustained supraventricular tachycardia runs (without any atrial flutter/fibrillation) and a low overall burden of ectopy were detected. ?? MRA abdomen 11/28/18: IMPRESSION 1. ??Critical stenosis at the origin of the left renal artery, with segmental areas of decreased perfusion/nonenhancement predominantly involving the mid to upper pole as well as wedge-shaped segmental focus in the lower pole representing renal infarcts. 2. ??Small to moderate ascites. ?? Renal artery duplex 11/27/18: Right: Patent main renal artery with no evidence of hemodynamically significant stenosis. Left: There is no identifiable flow by duplex in what is suspected to be the main renal artery; suspect occlusion. No arterial flow identified within the kidney. Patent renal vein.? Renal anatomic scan 12/05/18: IMPRESSION Nonfunctioning left kidney. ?? Renal anatomic scan 09/01/19: IMPRESSION No functioning left kidney. ?? MRA head/neck 06/05/19: IMPRESSION MRA head: Negative exam MRA NECK: Negative exam ?? MRA abdomen 06/23/19: IMPRESSION 1. ??No visible perfusion of the LEFT kidney on the arterial phase angiogram images. However, the LEFT renal cortex exhibits enhancement on the delayed postcontrast images. These results likely indicate a critical stenosis of the LEFT renal artery rather than total occlusion. ?? MRA chest 07/06/19: IMPRESSION Borderline dilatation of the ascending thoracic aorta measuring 41 mm. No dissection. UNEXPECTED FINDING of persistence of a mildly nodular opacity at the right lateral lung base. Evaluation on MRI is inherently limited and the follow-up CT imaging suggested in the prior chest CT reinterpretation report from 11/30/2018 has not yet been obtained. Recommend repeat low-dose, noncontrast chest CT for direct comparison with the prior CT from 11/24/2018 to excluded interval increase in size that may raise concern for malignancy. MRA chest 04/17/2021: IMPRESSION Stable dilatation of ascending thoracic aorta, mid ascending diameter [address] ?? CT chest 03/08/19: IMPRESSION 1. ??Interval decrease in size of the subpleural right lower lobe subpleural nodule. The decreased size, linear shape and overlying rib fracture deformity all support this finding as benign scarring. No further follow-up CT recommended. 2. ??No new nodules or adenopathy. Assessment: #1 Left renal infarct #2 Hypertension #3 4.1 cm ascending aortic dilatation Mr. Castillo is a 61 year old man with left renal infarct and hypertension who presents for follow-up.He has been doing quite well, active, without recurrent symptoms. Whole-body imaging fairly unrevealing except 4.1 cm ascending thoracic aorta, which has been stable in size with imaging. As previously discussed, this likely occurred in the setting of segmental arterial mediolysis. Continue mg daily. I don't see a reason for verapamil at this point, especially as he has some lightheadedness with changing position. Will keep a close eye on blood pressure. Can wait for 3-5 years to reimage with MRI, unless new symptoms develop. Plan 1. Stop verapamil. 2. Continue aspirin 81 mg daily and lisinopril 10 mg daily. 3. Repeat MRA in 3-5 years, can be ordered by PCP. I spent a total of 20 minutes associated with this encounter including chart review, the patient encounter, and documentation, of which more than 50% was with direct patient contact. Geovani Phan MD, MPH, RPVI, FACC, [facility] Cardiovascular Logging Equipment MechanicApartment Maintenance Workerspecial forces [place] [address] documented in this encounter Plan of Treatment Upcoming Encounters Date Type Department Care Team (Late st Contact Info) Description 06/16/2024 4:00 PM EDT Office Visit Neph[place] [phone] Betzaida Cope APRN [facility] [place] [address] 06/23/2024 2:00 PM EDT Appointment Non-[place] [phone] Owen Correia MD [facility] [place] [address] documented as of this encounter Visit Diagnoses Diagnosis Segmental arterial mediolysis Hypertension, unspecified type documented in this encounter Care Teams Factory Laborer Relationship Specialty Start Date End Date Luther Garrison DO [facility] [place] [address] PCP - General General Internal Medicine 09/01/1902/05 documented as of this encounter
--- OUTSIDE RECORDS SUMMARY | 2024-06-09 02:54 | XMS_ITS | Encounter Summary ---
Author Organization [facility] Address [facility] [place] [address] Care Team Providers Care Manager Financial Planning Name Role Phone Andi Thomas MD Primary Care Provider [phone] Reason for Visit * Reason Onset Date Comments Medication Refill 05/11/2022 Encounter Details Date Type Department Care Team (Late st Contact Info) Description 05/11/2022 Refill Cardiology at [address] [address] Geovani Phan MD [facility] [place] [address] Medication Refill Social History Tobacco Use Types [...] Telephone Encounter - Brianna Cobian RN - 05/12/2022 8:34 AM EDT 1. LV 02-11-22 Continue aspirin 81 mg daily and lisinopril 10 mg daily FUV planned for 3 years Requested Prescriptions Pending Prescriptions Disp Refills ??? aspirin EC 81 mg Tablet, Delayed Release (E.C.) 90 tablet 5 Sig: Take 1 tablet by mouth daily. Brianna Cobian RN 4A Cardiology documented in this encounter Plan of Treatment Upcoming Encounters Date Type Department Care Team (Late st Contact Info) Description 06/16/2024 4:00 PM EDT Office Visit [place] [address] Betzaida Cope, SANDER OPERATOR [facility] [place] [address] 06/23/2024 2:00 PM EDT Appointment Non-[place]vasive [place] [address] Owen Correia MD [facility] [place] [address] documented as of this encounter Visit Diagnoses Diagnosis Atypical chest pain Other chest pain documented in this encounter Care Teams Manager Financial Planning Relationship Specialty Start Date End Date Andi Thomas MD [facility] [place] [address] PCP - General General Internal Medicine 03/01/22 documented as of this encounter
--- OUTSIDE RECORDS SUMMARY | 2024-06-09 02:54 | XMS_ITS | Encounter Summary ---
Author Organization [facility] [place] [address] Care Team Providers Care Life Care Planner Name Role Phone Andi Thomas MD Primary Care Provider [phone] Reason for Visit * Reason Comments Medication Refill Encounter Details Date Type Department Care Team (Late st Contact Info) Description 05/24/2023 Refill [place] [address] Andi Thomas MD [facility] [place] [address] Social History Tobacco Use Types Packs/Day Years [...] place to sleep or slept in a group home (including now)? No 04/11/2022 Sex and Gender Information Value Date Recorded Sex Assigned at Not on file Gender Identity Not on file Sexual Orientation Not on file documented as of this encounter Miscellaneous Notes * Telephone Encounter - Yulia Dc MA - 05/25/2023 3:42 PM EDT Prescription Renewal Request Name: Moshe Castillo : 1960 Prescription(s) Requested: Requested Prescriptions Pending Prescriptions Disp Refills lisinopriL (Zestril) 10 mg tablet [Pharmacy Med Name: LISINOPRIL 10MG TABLETS] 90 tablet 3 Sig: TAKE 1 TABLET BY MOUTH DAILY Date of Encounter last in This Dept (If need an appointment send to secretaries to schedule): 04/08/2023 Fang Next Encounter in This Dept: Visit date not found Date of Last Refill (for each medication): 06/11/2022 90 w 3 refill Medication category requirements (labs etc): Lab Results Component Value Date NA 142 01/21/2023 K 4.7 01/21/2023 CL 106 01/21/2023 CO2 28 01/21/2023 BUN 23 (H) 01/21/2023 CREATININE 1.66 (H) 01/21/2023 GLUCOSE 73 01/21/2023 GLUCFASTING 111 (H) 12/01/2018 CALCIUM 9.2 01/21/2023 ESTGFR 46 (L) 01/21/2023 Status of request: Pended Allergies Allergen Reactions Amlodipine Other (See Comments) CHEST DISCOMFORT Pseudafen [Pseudoephedrine Hcl] Other (See Comments) Heart races Yulia Dc MA 05/25/23 3:45 PM documented in this encounter Plan of Treatment Upcoming Encounters Date Type Department Care Team (Late st Contact Info) Description 06/16/2024 4:00 PM EDT Office Visit Neph[place] [address] Betzaida Cope APRN [facility] [place] [address] 06/23/2024 2:00 PM EDT Appointment Non-Invasive Cardiology Lab [place] [phone] Owen Correia MD [facility] [place] [address] documented as of this encounter Visit Diagnoses Not on filedocumented in this encounter Care Teams Life Care Planner Relationship Specialty Start Date End Date Andi Thomas MD [facility] [place] [address] PCP - General General Internal Medicine 03/01/22 documented as of this encounter
--- OUTSIDE RECORDS SUMMARY | 2024-06-09 02:54 | XMS_ITS | Encounter Summary ---
Author Organization Count Includes [facility] Address [facility] [place] [address] Care Team Providers Care Cashier Associate Name Role Phone Andi Thomas MD Primary Care Provider [phone] Encounter Details Date Type Department Care Team (Latest Contact Info) Description 01/20/2023 Travel Social History Tobacco Use Types Packs/Day [...] in a half-way (including now)? No 04/11/2022 Sex and Gender Information Value Date Recorded Sex Assigned at Not on file Gender Identity Not on file Sexual Orientation Not on file documented as of this encounter Plan of Treatment Upcoming Encounters Date Type Department Care Team (Late st Contact Info) Description 06/16/2024 4:00 PM EDT Office Visit Nephrology Hypertension at [place] [phone] Betzaida Cope APRN [facility] [place] [address] 06/23/2024 2:00 PM EDT Appointment Non-Invasive Cardiology Lab [address] Owen Correia MD [facility] [place] [address] documented as of this encounter Visit Diagnoses Not on filedocumented in this encounter Care Teams Cashier Associate Relationship Specialty Start Date End Date Andi Thomas MD [facility] [place] [address] PCP - General General Internal Medicine 03/01/22 documented as of this encounter
--- OUTSIDE RECORDS SUMMARY | 2024-06-09 02:54 | XMS_ITS | Encounter Summary ---
[place] [address] Care Team Providers Care Pony Ride Attendant Name Role Phone Luther Garrison DO Primary Care Provider [phone] Reason for Referral * Diagnostic Test (Emergency) - Closed Specialty Diagnoses / Procedures Referred By Contac t Referred To Contact Radiology Diagnoses Transient global amnesia Procedures MRI Brain wwo Contrast (Generic) Arley Owen MD [facility] [place] [address] [place] [address] Referral ID Status Reason Start Date Expiration Date V isits Requested Visits Authorized [id number] Closed Specialty Service Requested 09/23/2021 11/21/2021 1 1 Reason for Visit * Diagnostic Test (Emergency) - Closed Specialty Diagnoses / Procedures Referred By Contac t Referred To Contact Radiology Diagnoses Transient global amnesia Procedures MRI Brain wwo Contrast (Generic) Arley Owen MD [facility] [place] [place] [address] [place] [address] Referral ID Status Reason Start Date Expiration Date V isits Requested Visits Authorized [id number] Closed Specialty Service Requested 09/23/2021 11/21/2021 1 1 Encounter Details Date Type Department Care Team (Latest Contact Info) Description 09/26/2021 6:37 PM EST - 09/26/2021 11:59 PM EST [place] [address] Jp Joel MD [facility] [place] [address] Transient global amnesia Discharge Disposition: Home Social [...] PM EDT Office Visit [place] [address] Betzaida Cope APRN [facility] [place] [address] 06/23/2024 2:00 PM EDT Appointment Non-[place] [address] Owen Correia MD [facility] [place] [address] documented as of this encounter Procedures Procedure Name Priority Date/Time Associated Diagnosis Comments MRI BRAIN WWO CONTRAST (GENERIC) STAT 09/26/2021 7:55 PM EST Transient global amnesia documented in this encounter Results * MRI [...] questions please contact the health wound care coordinator that requested your imaging first. ? Narrative 09/26/2021 8:13 PM EST EXAMINATION: MRI BRAIN WWO CONTRAST (GENERIC) CLINICAL HISTORY: Transient global amnesia 60yo M with TGA vs. ??- ED patient for Urgent Outpatient MRI at or [facility] TECHNIQUE: MRI of the brain was performed [...] patient for Urgent Outpatient MRI at or [facility] TECHNIQUE: MRI of the brain was performed [...] have questions please contactthe health wound care coordinator that requested your imaging first. Jp Joel MD IMG MRI ORDERABLES documented in this encounter Visit Diagnoses Diagnosis Transient global amnesia documented in this encounter Administered Medications Inactive Administered Medications - up to 3 most recent administrations Medication Order MAR Action Action Date Dose Rate Site gadoterate meglumine (Dotarem) (0.5 mMol/mL) injection solution 0-100 mL 0-100 mL, Intravenous, ONCE PRN, 1 dose, Starting on Wed09/26/21 at 1915, Until Wed09/26/21 at 1955, Per Protocol, Radiology Contrast, Routine Given 09/26/2021 7:55 PM EST 12 mLs documented in this encounter Care Teams Pony Ride Attendant Relationship Specialty Start Date End Date Luther Garrison DO [facility] GENERAL [place] [address] PCP - General General Internal Medicine 09/01/1902/05 documented as of this encounter
--- OUTSIDE RECORDS SUMMARY | 2024-06-09 02:54 | XMS_ITS | Encounter Summary ---
Author Organization [facility] [place] [address] Care Team Providers Care Balance Truing Inspector Name Role Phone Luther Garrison DO Primary Care Provider [phone] Encounter Details Date Type Department Care Team (Latest Contact Info) Description 04/17/2021 7:35 AM EDT Laboratory Appointment Lab [address] [place] [phone] Renal artery stenosis Social History Tobacco Use Types Packs/Day Years [...] PM EDT Office Visit [place] [phone] Betzaida Cope, [facility] [place] [address] 06/23/2024 2:00 PM EDT Appointment Non-[place] [address] Owen Correia MD [facility] [place] [address] documented as of this encounter Procedures Procedure Name Priority Date/Time Associated Diagnosis Comments HC VENIPUNCTURE Routine 04/17/2021 7:45 AM EDT Renal artery stenosis documented in this encounter Results * (ABNORMAL) Basic Metabolic Panel (non-fasting) (04/17/2021 7:45 AM EDT) Glucose 70 65 - 199 mg/dL [facility] Comment:Diabetes: >=200 mg/d L plus symptoms Blood Urea Nitrogen 16 10 - 20 mg/dL [facility] Creatinine 1.39 0.80 - 1.50 mg/dL [facility] Sodium 141 135 - 145 mmol/L [facility] Potassium 5.4(H) 3.5 - 5.0 mmol/L [facility] Comment: Please note: ??Patients with WBC >100,000 may have falsely elevated Potassium levels. ??For accurate Potassium quantification in these patients send serum separator tube (gold top) for subsequent determinations. ??Contact the Clinical Chemistry Laboratory if there are any questions. Chloride 104 98 - 107 mmol/L [facility] Carbon Dioxide 29 22 - 31 mmol/L [facility] Anion Gap 8 5 - 15 mmol/L [facility] Calcium 9.7 8.5 - 10.5 mg/dL [facility] Est Glomerular Filtration Rate 55(L) >=60 mL/min/1. 73 m?? [facility] Comment: This patient? s estimated [...] In Lab Kyler Syed MD CHEMISTRY ORDERABLES [facility] [place] [address] documented in this encounter Visit Diagnoses Diagnosis Renal artery stenosis Atherosclerosis of renal artery documented in this encounter Care Teams Balance Truing Inspector Relationship Specialty Start Date End Date Luther Garrison DO [facility] GENERAL [place] [address] PCP - General General Internal Medicine 09/01/1902/05 documented as of this encounter
--- OUTSIDE RECORDS SUMMARY | 2024-06-09 02:54 | XMS_ITS | Encounter Summary ---
Author Organization [facility] [place] [address] Care Team Providers Care Airport Guide Name Role Phone Andi Thomas MD Primary Care Provider [phone] Reason for Visit * Reason Onset Date Comments Other 06/22/2022 Lab orders Encounter Details Date Type Department Care Team (Late st Contact Info) Description 06/22/2022 Telephone [place] [phone] Andi Thomas MD [facility] [place] [address] Other (Lab orders) Social History Tobacco Use Types Packs/Day Years [...] Telephone Encounter - Lola Godfrey RN - 06/22/2022 10:47 AM EDT All future lab orders faxed to [facility] lab per request. * Telephone Encounter - Selma Flores - 06/22/2022 10:29 AM EDT Requested test or order: lab Reason requesting test or order: Please see TrendMD message dated 06/17/22. Lilian with [facility] lab requests that orders be re-faxed as they still have not received them. Date patient wants to come in: Location where patient wants it to be performed (if an outside facility, please include name of facility and phone/fax number): [facility] lab Address: [address] [place] [address] Phone #: [phone] Fax #: [phone] Caller and relationship (if other than patient-full name): Lilian - [facility] lab Best time to call back: Ok to leave a message: Ok to send my- message documented in this encounter Plan of Treatment Upcoming Encounters Date Type Department Care Team (Late st Contact Info) Description 06/16/2024 4:00 PM EDT Office Visit Ne[place] [phone] Betzaida Cope APRN [facility] [place] [address] 06/23/2024 2:00 PM EDT Appointment Non-Invasive Cardiology Lab [place] [phone] Owen Correia MD [facility] [place] [address] documented as of this encounter Visit Diagnoses Not on filedocumented in this encounter Care Teams Airport Guide Relationship Specialty Start Date End Date Andi Thomas MD [facility] [place] [address] PCP - General General Internal Medicine 03/01/22 documented as of this encounter
--- OUTSIDE RECORDS SUMMARY | 2024-06-09 02:54 | XMS_ITS | Encounter Summary ---
Author Organization Formerly [facility] [place] [address] Care Team Providers Care Innovation Manager Name Role Phone Andi Thomas MD Primary Care Provider [phone] Reason for Visit * Reason Comments Medication Refill Encounter Details Date Type Department Care Team (Late st Contact Info) Description 03/02/2022 Refill Cardiology at [address] [address] Geovani Phan MD [facility] [place] [address] Medication Refill Social History Tobacco Use Types [...] PM EDT Office Visit [place] [phone] Betzaida Cope APRN [facility] [place] [address] 06/23/2024 2:00 PM EDT Appointment Non-Invasive [place] [address] Owen Correia MD [facility] [place] [address] documented as of this encounter Visit Diagnoses Diagnosis Atypical chest pain- Primary Other chest pain documented in this encounter Care Teams Innovation Manager Relationship Specialty Start Date End Date Andi Thomas MD [facility] GENERAL [place] [address] PCP - General General Internal Medicine 03/01/22 documented as of this encounter
--- OUTSIDE RECORDS SUMMARY | 2024-06-09 02:54 | XMS_ITS | Encounter Summary ---
[place] [address] Care Team Providers Care Combatant Diver Officer Name Role Phone Luther Garrison DO Primary Care Provider [phone] Reason for Visit * Reason Comments Skin Check Encounter Details Date Type Department Care Team (Late st Contact Info) Description 04/28/2021 3:45 PM EDT Office Visit Dermatology at [address] [address] Michael Arellano MD [address] [facility] [place] [address] Family history of malignant melanoma; Seborrheic keratosis; Nevus Social History Tobacco Use Types Packs/Day Years Used Date Smoking Tobacco: Never Smokeless Tobacco: Never Alcohol Use Standard Drinks/Week Comments Yes 7 (1 standard drink = 0.6 oz pur e alcohol) Sex and Gender Information Value Date Recorded Sex Assigned at Not on file Gender Identity Not on file Sexual Orientation Not on file documented as of this encounter Progress Notes * Michael Arellano MD - 04/28/2021 3:45 PM EDT Problem 1. 3 year skin checkup. 2. 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 Family history of malignant melanoma Moshe follows up for a repeat 3-year skin checkup. He has been doing well. He has not noted any newlesions of concern. Physical examination reveals a pleasant 60-year-old gentleman who has benign examination of the central scalp the face the neck the chest the back the hands the arms of forearms thighs and the calvesand the buttocks. He has small corns present on both distal soles of the feet. His nose of any malignant lesions Assessment plan: Benign skin examination the patient with history of sun exposure and many pierre in [place] and family history of malignant melanoma 1. Patient reassured about benign skin examination 2. Recommend we continue with sun avoidance precautions 3. Return to clinic in another 3 years for repeat check. CC: Luther Garrison DO documented in this encounter Plan of Treatment Upcoming Encounters Date Type Department Care Team (Late st Contact Info) Description 06/16/2024 4:00 PM EDT Office Visit Nephrology [place] [phone] Betzaida Cope APRN [facility] [place] [address] 06/23/2024 2:00 PM EDT Appointment Non-Invasive [place] [phone] Owen Correia MD [facility] [place] [address] documented as of this encounter Visit Diagnoses Diagnosis Family history of malignant melanoma Family history of other specified malignant neoplasm Seborrheic keratosis Other seborrheic keratosis Nevus Benign neoplasm of skin, site unspecified documented in this encounter Care Teams Combatant Diver Officer Relationship Specialty Start Date End Date Luther Garrison DO [facility] GENERAL INTERNAL [place] [address] PCP - General General Internal Medicine 09/01/19 601/25 documented as of this encounter
--- OUTSIDE RECORDS SUMMARY | 2024-06-09 02:54 | XMS_ITS | Encounter Summary ---
Author Organization [facility] Address [facility] [place] [address] Care Team Providers Care Chainstitch Seat Joiner Name Role Phone Andi Thomas MD Primary Care Provider [phone] Encounter Details Date Type Department Care Team (Latest Contact Info) Description 04/01/2023 Travel Social History Tobacco Use Types Packs/Day [...] Office Visit Nephrology Hypertension at [place] [phone] Betzaida Cope APRN [facility] [place] [address] 06/23/2024 2:00 PM EDT Appointment Non-Invasive Cardiology Lab [address] Owen Correia MD [facility] [place] [address] documented as of this encounter Visit Diagnoses Not on filedocumented in this encounter Care Teams Chainstitch Seat Joiner Relationship Specialty Start Date End Date Andi Thomas MD [facility] GENERAL INTER[place] [address] PCP - General General Internal Medicine 03/01/22 documented as of this encounter
--- OUTSIDE RECORDS SUMMARY | 2024-06-09 02:54 | XMS_ITS | Encounter Summary ---
Author Organization [facility] Address [facility] [place] [address] Care Team Providers Care Soil Sampler Name Role Phone Andi Thomas MD Primary Care Provider [phone] Encounter Details Date Type Department Care Team (Latest Contact Info) Description 09/10/2023 4:13 PM EST - 09/10/2023 11:59 PM [facility] Hospital Encounter XRay at [address] [place] [address] Moshe [place] MD [facility] [place] [address] Injury of meniscus of left knee, initial encounter Discharge Disposition: Home Social History Tobacco Use [...] Progress Notes * Andi Thomas MD - 09/10/2023 11:59 PM EST Hi, We have received the Knee Xray result. Doesn't seem to have very prominent findings. I will try andput in another MRI. Sincerely, Andi Thomas documented in this encounter Plan of Treatment Upcoming Encounters Date Type Department Care Team (Late st Contact Info) Description 06/16/2024 4:00 PM EDT Office Visit Nephrology [place] [address] Betzaida Cope APRN [facility] [place] [address] 06/23/2024 2:00 PM EDT Appointment Non-[place] [address] Owen Correia MD [facility] CARDIOLOGY [place], [place] [phone] documented as of this encounter Procedures Procedure Name Priority Date/Time Associated Diagnosis Comments XR KNEE AP & LAT LEFT Routine 09/10/2023 4:27 PM EST Injury of meniscus of left knee, initial encounter documented in this encounter Results * XR Knee 1-2 Views Left (Generic) (09/10/2023 4:27 PM EST) Anatomical Region Laterality Modality Knee Left Digital Radiogra phy Impressions 09/13/2023 9:11 AM EST 1. ??No definite acute fracture of the left knee. Well-corticated fragment along the superolateral margin of the left patella is favored to represent a bipartite patella. However, if there was a history of trauma at this site and focal pain at this site on physical examination, this finding could represent an age-indeterminate patellar fracture. 2. ??Possible right bipartite patella. 3. ??Mild bilateral knee osteoarthropathy. Thank you for letting us participate in the care of this patient. ??If you are a health care provider and have any questions regarding this report, please contact the number below. ??For patients who have questions please contact the health home care attendant that requested your imaging first. ? Electronically signed by: Consuelo Cortes MD, [facility] ([phone]), at 09/13/2023 9:11 AM Narrative 09/13/2023 9:11 AM EST EXAMINATION: XR KNEE 1-2 VIEWS LEFT (GENERIC) CLINICAL HISTORY: Chronic L knee pain s/p mild trauma refractory to PT r/o meniscal tear (as entered by ordering provider in the order requisition) TECHNIQUE: AP and lateral views of the right knee COMPARISON: None FINDINGS: Left: No focal soft tissue swelling. ??No joint effusion or lipohemarthrosis. No radiodense foreign body. ??No soft tissue gas. Normal alignment of the right knee. No acute fracture. Probable bipartite patella. Mild medial compartment narrowing. No destructive bone lesion. No osseous erosion. Right: Possible bipartite patella. Mild medial compartment narrowing. Procedure Note Consuelo Cortes MD - 09/13/2023 EXAMINATION: XR KNEE 1-2 VIEWS LEFT (GENERIC) CLINICAL HISTORY: Chronic L knee pain s/p mild trauma refractory to PTr/o meniscal tear (as entered by ordering provider in the order requisition) TECHNIQUE: AP and lateral views of the right knee COMPARISON: None FINDINGS: Left: No focal soft tissue swelling. No joint effusion or lipohemarthrosis. No radiodense foreign body. No soft tissue gas. Normal alignment of the right knee. No acute fracture. Probablebipartite patella. Mild medial compartment narrowing. No destructive bone lesion. No osseous erosion. Right: Possible bipartite patella. Mild medial compartment narrowing. IMPRESSION 1. No definite acute fracture of the left knee. Well-corticated fragmentalong the superolateral margin of the left patella is favored to represent abipartite patella. However, if there was a history of trauma at this site and focalpain at this site on physical examination, this finding could represent an age-indeterminate patellar fracture. 2. Possible right bipartite patella. 3. Mild bilateral knee osteoarthropathy. Thank you for letting us participate in the care of this patient. If youare a health care provider and have any questions regarding this report,please contact the number below. For patients who have questions please contactthe health home care attendant that requested your imaging first. Electronically signed by: Consuelo Cortes MD, [facility]([phone]), at 09/13/2023 9:11 AM Moshe [place] MD IMG DX ORDERABLES documented in this encounter Visit Diagnoses Diagnosis Injury of meniscus of left knee, initial encounter documented in this encounter Care Teams Soil Sampler Relationship Specialty Start Date End Date Andi Thomas MD [facility] [place] [address] PCP - General General Internal Medicine 03/01/22 documented as of this encounter
--- OUTSIDE RECORDS SUMMARY | 2024-06-09 02:54 | XMS_ITS | Encounter Summary ---
Author Organization [facility] Address [facility] [place] [address] Care Team Providers Care Multiple Spindle Screw Machine Operator Name Role Phone Andi Thomas MD Primary Care Provider [phone] Encounter Details Date Type Department Care Team (Latest Contact Info) Description 10/23/2022 Travel Social History Tobacco Use Types Packs/Day [...] in a usp (including now)? No 04/11/2022 Sex and Gender Information Value Date Recorded Sex Assigned at Not on file Gender Identity Not on file Sexual Orientation Not on file documented as of this encounter Plan of Treatment Upcoming Encounters Date Type Department Care Team (Late st Contact Info) Description 06/16/2024 4:00 PM EDT Office Visit Nephrology Hypertension at [place] [phone] Betzaida Cope APRN [facility] [place] [address] 06/23/2024 2:00 PM EDT Appointment Non-Invasive Cardiology Lab [address] Owen Correia MD [facility] [place] [address] documented as of this encounter Visit Diagnoses Not on filedocumented in this encounter Care Teams Multiple Spindle Screw Machine Operator Relationship Specialty Start Date End Date Andi Thomas MD [facility] [place] [address] PCP - General General Internal Medicine 03/01/22 documented as of this encounter
--- OUTSIDE RECORDS SUMMARY | 2024-06-09 02:54 | XMS_ITS | Encounter Summary ---
Author Organization [facility] Address [facility] [place] [address] Care Team Providers Care Press Setter Name Role Phone Andi Thomas MD Primary Care Provider [phone] Encounter Details Date Type Department Care Team (Latest Contact Info) Description 01/21/2023 4:30 PM EDT Office Visit Neph[place] [address] Haylee Ta APRN [facility] [place] [address] Renal artery stenosis; Elevated serum creatinine Social History Tobacco Use Types Packs/Day Years [...] medical appointments or from getting medications? 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 Nevus D22.9 ??? Family history of malignant melanoma Z80.8 ??? Elevated serum creatinine R79.89 ??? Renal artery stenosis I70.1 ??? Atypical chest pain R07.89 ??? Lung nodule, solitary R91.1 ??? HTN (hypertension) I10 Outpatient Encounter Medications as of 01/21/2023 Medication Sig Dispense Refill ??? ibuprofen (Advil) 200 mg tablet Take 200 mg by mouth every 6 hours as needed for Pain. ??? lisinopriL (Zestril) 10 mg Tablet TAKE 1 TABLET BY MOUTH DAILY 90 tablet 3 ??? aspirin EC 81 mg Tablet, Delayed Release (E.C.) Take 1 tablet by mouth daily. 90 tablet 5 No facility-administered encounter medications on file as of 01/21/2023. Allergies Allergen Reactions ??? Amlodipine Other (See Comments) CHEST DISCOMFORT ??? Pseudafen [Pseudoephedrine Hcl] Other (See Comments) Heart races Interim history - Patient was last seen by nephrology on 11/14/2021, when at that time his Creat was1.5 and GFR 47. No hospitalizations, surgeries, or new diagnoses since last visit. S: Today, Moshe shares that his energy level is good. No lightheadedness or dizziness. No SOB. No chest pain/pressure. Appetite good. 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 No N/V/D. No changes in urination. Voiding several times a day. Nocturia X2. No bloody or foamy urine. No dysuria. He is able to empty his bladder. O: Vitals: 01/21/23 1638 BP: 107/75 BP Location (NB): Left arm Patient Position: Sitting BP Cuff Sizes: Adult (25-34 cm) Pulse: 71 SpO2: 100% Weight: 61.8 kg (136 lb 3.2 oz) General: Arrived ambulatory. Alert, comfortable. Cooperative with exam. HEENT: Sclera white. Mucous membranes moist. No lymphadenopathy. CV: S1 and S2. HR regular. JVP not elevated. Resp: Lungs clear with no crackles or wheezes. Respirations non labored. Abd: Soft. + BS. No bruit. Non tender. : No CVA tenderness. Ext: Warm. No cyanosis. No edema. Skin: No rash. Neuro: Intact. Psych: Mood appropriate Labs: Recent Results (from the past 72 hour(s)) Vitamin D, 25-Hydroxy Result Value Ref Range 25-OH Vit D Total 24 21 - 100 ng/mL 25-OH Vit D Interp Insufficient PTH Result Value Ref Range PTH 97 (H) 15 - 65 pg/mL Phosphorus Result Value Ref Range Phosphorus 3.3 2.5 - 4.5 mg/dL Basic Metabolic Panel (non-fasting) Result Value Ref Range Glucose Lvl 73 65 - 199 mg/dL BUN 23 (H) 10 - 20 mg/dL Creatinine 1.66 (H) 0.80 - 1.50 mg/dL Sodium 142 135 - 145 mmol/L Potassium 4.7 3.5 - 5.0 mmol/L Chloride 106 98 - 107 mmol/L CO2 28 22 - 31 mmol/L Anion Gap 8 5 - 15 mmol/L Calcium 9.2 8.5 - 10.5 mg/dL Estimated GFR 46 (L) >=60 mL/min/1.73 m?? Albumin Level Result Value Ref Range Albumin 4.3 3.2 - 5.2 g/dL Hemogram Result Value Ref Range WBC 4.8 4.0 - 9.5 x10(3)/mcL RBC 4.46 (L) 4.58 - 5.54 x10(6)/mcL Hemoglobin 13.9 13.7 - 16.5 g/dL Hematocrit 41.4 40.5 - 48.5 % MCV 92.8 82.9 - 93.1 fL MCH 31.2 27.5 - 32.1 pg MCHC 33.6 32.0 - 35.7 g/dL Platelets 188 145 - 357 x10(3)/mcL RDWSD 41.6 36.0 - 45.0 fL RDWCV 12.0 11.4 - 13.8 % MPV 11.2 7.6 - 12.9 fL nRBC % Auto 0.0 % nRBC Abs Auto 0.000 0.000 - 0.000 x10(3)/mcL Differential, Automated Result Value Ref Range Neutrophils % 46.3 % Neutr Abs (ANC) 2.24 1.70 - 6.10 x10(3)/mcL Lymphocytes % 34.0 % Lymphocytes Abs 1.6 0.9 - 3.2 x10(3)/mcL Monocytes % 13.0 % Monocyte Abs 0.6 0.3 - 0.9 x10(3)/mcL Eosinophils % 4.8 % Eosinophils Abs 0.2 0.0 - 0.4 x10(3)/mcL Basophils % 1.7 % Basophils Abs 0.1 0.0 - 0.1 x10(3)/mcL Immature Gran % 0.20 % [place] Gran Abs 0.01 0.00 - 0.04 x10(3)/mcL U Albumin/Cre Ratio Result Value Ref Range Alb/Cr Ratio, Random Not Calculated 0 - 29 mcg/mg Cr U Albumin Conc, Random <3.0 mg/L U Creatinine 63 mg/dL Protein/Creatinine Ratio, urine Result Value Ref Range U Creatinine 63 mg/dL U Protein Ran <6 0 - 12 mg/dL Prot/Cre Ratio <0.1 ratio _Urinalysis with microscopic Result Value Ref Range Glucose UA Negative Negative mg/dL Protein UA Negative Negative mg/dL Bilirubin UA Negative Negative mg/dL Urobilinogen UA Normal Normal mg/dL pH UA 6.0 5.0 - 8.0 Blood UA Negative Negative mg/dL Ketones UA Negative Negative mg/dL Nitrite UA Negative Negative Leukocytes UA Negative Negative mcL Appearance UA Clear Clear Spec [place] UA 1.012 1.005 - 1.030 Color UA Yellow Yellow RBC UA 0 0 - 3 /HPF WBC UA 0 0 - 3 /HPF A/P: 62 y.o.year-old male for CKD related to 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 ??? CKD Stage 3a with GFR of 46, consistent with trends since 2019. Expect fluctuations in GFR are related to hydration. Risk factors for worsening renal function reviewed. Discussed importance of continued good blood pressure control, adequate hydration, and avoidance of NSAIDs. No clinical indication for INFORMATICS SCIENTIST. ?? HTN - BP well controlled on current regime. No proteinuria. ??? Diabetes - Not present. ??? Anemia - No anemia related to chronic disease. KDIGO Hgb goal in CKD is 10.0-11.5g/dL. ??? Bone and mineral - Evidence of secondary hyperparathyroidism related to CKD with PTH of 97. 25-OH Vit D level insufficient. Will add cholecalciferol 1,000u daily. Calcium and phos in range. KDIGO PTH goals in CKD: Stage 3 - PTH 35-70pg/ml Stage 4 - PTH 70-110pg/ml Stage 5 - PTH 150-300pg/ml ??? Acid-base - Metabolic acidosis is not present. ??? Electrolytes - Potassium and sodium are in range. ??? Nutrition - Normal albumin suggests adequate protein intake. ??? Transplant/access referral - Not indicated. ??? Return to clinic - Will return in approximately 1 year for follow-up. Patient encouraged to reach out with any questions or concerns. >the total time spent [id number] AND total time the provider spent counseling was 20 minutes. CC: Andi Thomas MD @[email or web address] documented in this encounter Plan of Treatment Upcoming Encounters Date Type Department Care Team (Late st Contact Info) Description 06/16/2024 4:00 PM EDT Office Visit Neph[place] [address] Betzaida Cope APRN [facility] [place] [address] 06/23/2024 2:00 PM EDT Appointment Non-Invasive [place] [address] Owen Correia MD [facility] [place] [address] Scheduled Orders Name Type Priority Associated Diagnoses Orde r Schedule Basic Metabolic Panel (non-fasting) Lab Routine Renal artery stenosis Elevated serum creatinine Expected: 01/21/2023, Expires: 01/22/2024 CBC (with Diff) Lab Routine Renal artery stenosis Elevated serum creatinine Expected: 01/21/2023, Expires: 01/22/2024 Albumin Level Lab Routine Renal artery stenosis Elevated serum creatinine Expected: 01/21/2023, Expires: 01/22/2024 Phosphorus Lab Routine Renal artery stenosis Elevated serum creatinine Expected: 01/21/2023, Expires: 01/22/2024 Vitamin D, 25-Hydroxy Lab Routine Renal artery stenosis Elevated serum creatinine Expected: 01/21/2023, Expires: 01/22/2024 documented as of this encounter Procedures Procedure Name Priority Date/Time Associated Diagnosis Comments HC URINALYSIS ROUTINE Routine 01/21/2023 5:36 PM EDT Renal artery stenosis Elevated serum creatinine PROTEIN/CREATININE RATIO, URINE Routine 01/21/2023 5:36 PM EDT Renal artery stenosis Elevated serum creatinine U ALBUMIN/CRE RATIO Routine 01/21/2023 5 :36 PM EDT Renal artery stenosis Elevated serum creatinine PTH Routine 01/21/2023 5:23 PM EDT Renal artery stenosis Elevated serum creatinine HEMOGRAM Routine 01/21/2023 5:23 PM EDT Renal artery stenosis Elevated serum creatinine DIFFERENTIAL, AUTOMATED Routine 01/21/2023 5:23 PM EDT Renal artery stenosis Elevated serum creatinine VITAMIN D, 25-HYDROXY Routine 01/21/2023 5:23 PM EDT Renal artery stenosis Elevated serum creatinine CBC (WITH DIFF) Routine 01/21/2023 5:23 PM EDT Renal artery stenosis Elevated serum creatinine PHOSPHORUS Routine 01/21/2023 5:23 PM EDT Renal artery stenosis Elevated serum creatinine ALBUMIN LEVEL Routine 01/21/2023 5:23 PM EDT Renal artery stenosis Elevated serum creatinine BASIC METABOLIC PANEL Routine 01/21/2023 5:23 PM EDT Renal artery stenosis Elevated serum creatinine documented in this encounter Results * U Albumin/Cre Ratio (01/21/2023 5:36 PM EDT) Albumin / Creatinin Ratio, Urine Not Calculated 0 - 29 mcg/mg Cr [facility] Comment: Reference Ranges: <30 mcg/mg: Normal 30-300 mcg/mg: Moderately increased albuminuria.* >300 mcg/mg: Severely increased albuminuria. * ACEI or ARB recommended if diabetic; suggested if BP>130/80 without diabetes ACEI or ARB strongly recommended if diabetic; recommended if BP>130/80 without diabetes Two of three specimens collected within a 3 to 6 month period should be abnormal before considering a patient to have albuminuria. Transient causes: exercise, fever, infection, CHF, marked hyperglycemia or hypertension. Persistent albuminuria indicates CKD and is an independent risk factor for ASCVD. ADA Standards of Medical Care in Diabetes-2016; KDIGO: Kidney International Supplements (2012) 2, 357? 362 Albumin, Urine <3.0 mg/L [facility] Creatinine, Urine 63 mg/dL [facility] Urine 01/21/2023 5:36 PM EDT 01/21/2023 5:57 PM EDT Narrative Resulting Agency Comment Spec In Lab Haylee Ta [employer] URINE ORDERABLES Performing Organization Address City/[facility]/ZIP Co de Phone Number [facility] [place] [address] * Protein/Creatinine Ratio, urine (01/21/2023 5:36 PM EDT) Creatinine, Urine 63 mg/dL [facility] Protein, Urine <6 0 - 12 mg/dL [facility] Protein / Creatinine Ratio, Urine <0.1 ratio [facility] Urine 01/21/2023 5:36 PM EDT 01/21/2023 5:57 PM EDT Narrative Resulting Agency Comment Spec In Lab Hayleeramu Ta [employer] [place] URINE ORDERABLES Performing Organization Address City/[facility]/ZIP Co de Phone Number [facility] [place] [address] * _Urinalysis with microscopic (01/21/2023 5:36 PM EDT) Glucose, Urine Dipstick Negative Negative mg/dL [facility] Protein, Urine Dipstick Negative Negative mg/dL [facility] Bilirubin, Urine Dipstick Negative Negative mg/dL [facility] Comment: Clinical correlation required for positive Urine Bilirubin results as false positive may occur with some drugs and drug related products. If a false positive is suspected a serum total bilirubin should be considered if clinically indicated. Urobilinogen, Urine Dipstick Normal Normal mg/dL [facility] pH, Urn (dipstick) 6.0 5.0 - 8.0 [facility] Blood, Urine Dipstick Negative Negative mg/dL [facility] Ketone, Urine Dipstick Negative Negative mg/dL [facility] Nitrite, Urine Dipstick Negative Negative [facility] Leukocytes, Urine Dipstick Negative Negative [facility] [place] [facility] Appearance, Urine Dipstick Clear Clear [facility] Specific [place] Urine Automated 1.012 1.005 - 1.030 [facility] Color, Urine Dipstick Yellow Yellow [facility] RBC, Urine 0 0 - 3 /HPF [facility] WBC, Urine 0 0 - 3 /HPF [facility] Urine 01/21/2023 5:36 PM EDT 01/21/2023 5:57 PM EDT Narrative Resulting Agency Comment Spec In Lab Haylee Ta [employer] [place] URINE ORDERABLES [facility] [address] * Differential, Automated (01/21/2023 5:23 PM EDT) Neutrophil % 46.3 % [facility] Neutrophil Absolute 2.24 1.70 - 6.10 x10(3)/[facility] [place] [facility] Lymph % 34.0 % [facility] Lymphocytes Abs 1.6 0.9 - 3.2 x10(3)/[facility] [place] [facility] Monocyte % 13.0 % [facility] Monocyte Abs 0.6 0.3 - 0.9 x10(3)/[facility] [place] [facility] Eos % 4.8 % [facility] Eosinophils Abs 0.2 0.0 - 0.4 x10(3)/[facility] [place] [facility] Basophil % 1.7 % [facility] Baso Absolute 0.1 0.0 - 0.1 x10(3)/[facility] [place] [facility] Immature Gran % 0.20 % [facility] Comment: Immature granulocytes(IG's)percentage and absolute count will include metamyelocytes, myelocytes, and promyelocytes. Blood smears from CBCs yielding IG's will be scanned manually for concordance. If this scan disagrees with the automated IG or if promyelocytes are noted, a manual differential will be performed. Immature Gran Absolute 0.01 0.00 - 0.04 x10(3)/mcL [facility] Blood 01/21/2023 5:23 PM EDT 01/21/2023 5:32 PM EDT Narrative Resulting Agency Comment Spec In Lab Haylee L Keyon [employer] HEMATOLOGY ORDERA BLES [facility] [address] * (ABNORMAL) Hemogram (01/21/2023 5:23 PM EDT) White Blood Cell 4.8 4.0 - 9.5 x10(3)/mc L [facility] Red Blood Cell 4.46(L) 4.58 - 5.54 x10(6)/mc L [facility] Hemoglobin 13.9 13.7 - 16.5 g/dL [facility] Hematocrit 41.4 40.5 - 48.5 % [facility] Mean Cell Volume 92.8 82.9 - 93.1 fL [facility] Mean Cell Hemoglobin 31.2 27.5 - 32.1 pg [facility] Mean Cell Hemoglobin Concentration 33.6 32.0 - 35.7 g/dL [facility] Platelet 188 145 - 357 x10(3)/mc L [facility] RDW Standard Deviation 41.6 36.0 - 45.0 fL [facility] RDW coefficient of variation 12.0 11.4 - 13.8 % [facility] Mean Platelet Volume 11.2 7.6 - 12.9 fL [facility] NRBC% auto 0.0 % [facility] NRBC Absolute 0.000 0.000 - 0.000 x10(3)/mc L [facility] Blood 01/21/2023 5:23 PM EDT 01/21/2023 5:32 PM EDT Narrative Resulting Agency Comment Spec In Lab Haylee L Keyon [employer] [facility] HEMATOLOGY ORDERA BLES [facility] [address] * Vitamin D, 25-Hydroxy (01/21/2023 5:23 PM EDT) Vitamin D Total 25 OH 24 21 - 100 ng/mL [facility] Vit D Interp Insufficient [facility] Blood 01/21/2023 5:23 PM EDT 01/21/2023 5:32 PM EDT Narrative Resulting Agency Comment Spec In Lab Haylee L Keyon [employer] CHEMISTRY ORDERAB LES [facility] [address] * (ABNORMAL) PTH (01/21/2023 5:23 PM EDT) Parathyroid Hormone 97(H) 15 - 65 pg/mL [facility] Blood 01/21/2023 5:23 PM EDT 01/21/2023 5:32 PM EDT Narrative Resulting Agency Comment Spec In Lab Haylee L Keyon [employer] [facility] CHEMISTRY ORDERAB LES Performing Organization Address City/[facility]/ZIP Co de Phone Number [facility] [address] * Phosphorus (01/21/2023 5:23 PM EDT) Phosphorus 3.3 2.5 - 4.5 mg/dL [facility] Blood 01/21/2023 5:23 PM EDT 01/21/2023 5:32 PM EDT Narrative Resulting Agency Comment Spec In Lab Haylee L Keyon [employer] CHEMISTRY ORDERAB LES Performing Organization Address City/[facility]/ZIP Co de Phone Number [facility] [address] * (ABNORMAL) Basic Metabolic Panel (non-fasting) (01/21/2023 5:23 PM EDT) Glucose 73 65 - 199 mg/dL [facility] Comment:Diabetes: >=200 mg/d L plus symptoms Blood Urea Nitrogen 23(H) 10 - 20 mg/dL [facility] Creatinine 1.66(H) 0.80 - 1.50 mg/dL [facility] Sodium 142 135 - 145 mmol/L [facility] Potassium 4.7 3.5 - 5.0 mmol/L [facility] Comment: Please note: ??Patients with WBC >100,000 may have falsely elevated Potassium levels. ??For accurate Potassium quantification in these patients send serum separator tube (gold top) for subsequent determinations. ??Contact the Clinical Chemistry Laboratory if there are any questions. Chloride 106 98 - 107 mmol/L [facility] Carbon Dioxide 28 22 - 31 mmol/L [facility] Anion Gap 8 5 - 15 mmol/L [facility] Calcium 9.2 8.5 - 10.5 mg/dL [facility] Est Glomerular Filtration Rate 46(L) >=60 mL/min/1. 73 m?? [facility] Comment: This patient's estimated GFR was [...] and symptoms in addition to eGFR. Blood 01/21/2023 5:23 PM EDT 01/21/2023 5:32 PM EDT Narrative Resulting Agency Comment Spec In Lab Haylee Ta [employer] [place] CHEMISTRY ORDERAB LES [facility] [place] [address] * Albumin Level (01/21/2023 5:23 PM EDT) Albumin 4.3 3.2 - 5.2 g/dL [facility] Blood 01/21/2023 5:23 PM EDT 01/21/2023 5:32 PM EDT Narrative Resulting Agency Comment Spec In Lab Haylee Ta [employer] [facility] CHEMISTRY ORDERAB LES [facility] [place] [address] documented in this encounter Visit Diagnoses Diagnosis Renal artery stenosis Atherosclerosis of renal artery Elevated serum creatinine Other nonspecific findings on examination of blood documented in this encounter Care Teams Press Setter Relationship Specialty Start Date End Date Andi Thomas MD [facility] [place] [address] PCP - General General Internal Medicine 03/01/22 documented as of this encounter
--- OUTSIDE RECORDS SUMMARY | 2024-06-09 02:54 | XMS_ITS | Encounter Summary ---
Author Organization [facility] [place] [address] Care Team Providers Care Assessment Director Name Role Phone Andi Thomas MD Primary Care Provider [phone] Encounter Details Date Type Department Care Team (Late st Contact Info) Description 11/25/2022 Telephone [place] [address] Anitra Sherman Social History Tobacco [...] * Telephone Encounter - Anitra Sherman - 11/25/2022 11:23 AM EDT LM for patient to call and schedule a follow up appointment with Haylee Ta APRN. Will send out reminder letter. documented in this encounter Plan of Treatment Upcoming Encounters Date Type Department Care Team (Late st Contact Info) Description 06/16/2024 4:00 PM EDT Office Visit [place] [address] Betzaida Cope APRN [facility] [place] [address] 06/23/2024 2:00 PM EDT Appointment Non-[place]vasive [place] [address] Owen Correia MD [facility] [address] documented as of this encounter Visit Diagnoses Not on filedocumented in this encounter Care Teams Assessment Director Relationship Specialty Start Date End Date Andi Thomas MD [facility] [place] [address] PCP - General General Internal Medicine 03/01/22 documented as of this encounter
--- OUTSIDE RECORDS SUMMARY | 2024-06-09 02:54 | XMS_ITS | Encounter Summary ---
Author Organization [facility] [place] [address] Care Team Providers Care Tobacco Stemmer Name Role Phone Andi Thomas MD Primary Care Provider [phone] Reason for Visit * Reason Onset Date Comments Medication Refill 03/17/2022 Encounter Details Date Type Department Care Team (Late st Contact Info) Description 03/17/2022 Refill [place] [address] Andi Thomas MD [facility] [place] [address] Social History Tobacco Use Types Packs/Day Years [...] Telephone Encounter - Sadie Roque - 03/17/2022 12:00 PM EDT Patient only has 3 pills left or 3 days documented in this encounter Plan of Treatment Upcoming Encounters Date Type Department Care Team (Late st Contact Info) Description 06/16/2024 4:00 PM EDT Office Visit [place] [address] Betzaida Cope APRN [facility] [place] [address] 06/23/2024 2:00 PM EDT Appointment Non-Invasive Cardiology Lab [address] Owen Correia MD [facility] [place] [address] documented as of this encounter Visit Diagnoses Not on filedocumented in this encounter Care Teams Tobacco Stemmer Relationship Specialty Start Date End Date Andi Thomas MD [facility] [place] [address] PCP - General General Internal Medicine 03/01/22 documented as of this encounter
--- OUTSIDE RECORDS SUMMARY | 2024-06-09 02:54 | XMS_ITS | Encounter Summary ---
Author Organization Formerly [facility] [place] [address] Care Team Providers Care Cook House Supervisor Name Role Phone Rajiv Thomas MD Primary Care Provider [phone] Reason for Visit * Reason Onset Date Comments Prior Authorization 09/03/2023 Encounter Details Date Type Department Care Team (Late st Contact Info) Description 09/03/2023 Telephone [place] [phone] Rajiv Thomas MD [facility] [place] [address] Prior Authorization Social History Tobacco Use Types Packs/Day Years [...] Telephone Encounter - Krystyna Adler RN - 09/03/2023 2:23 PM EST Copied from [facility] #[id number]. Topic: Generic Non-Symptom Based - Generic Call >> Sep 03, 2023 1:22 PM Jeannette Bartholomew wrote: Reason: Unidentified call for MRI instructions PCP: RAJIV THOMAS Reason for Call: Patient called and advised he got a VM from someone who said that he needs to reach out to his primary care physician as they left some instructions with his PCP and it may be something he needs to follow up with. He reported it seems to be related to his MRI scheduled for next week and he got the impression that it might have to do with needing some pre qualifying condition, butwasn't able to get any other information. He reported the caller ID was from [place]. Please call to advise if applicable. documented in this encounter Plan of Treatment Upcoming Encounters Date Type Department Care Team (Late st Contact Info) Description 06/16/2024 4:00 PM EDT Office Visit Ne[place] [address] Betzaida Cope APRN [facility] [place] [address] 06/23/2024 2:00 PM EDT Appointment Non-Invasive Cardiology Lab [place] [phone] Owen Correia MD [facility] [place] [address] documented as of this encounter Visit Diagnoses Not on filedocumented in this encounter Care Teams Cook House Supervisor Relationship Specialty Start Date End Date Rajiv Thomas MD [facility] [place] [address] PCP - General General Internal Medicine 03/01/22 documented as of this encounter
--- OUTSIDE RECORDS SUMMARY | 2024-06-09 02:54 | XMS_ITS | Encounter Summary ---
Author Organization [facility] [place] [address] Care Team Providers Care Academic Coordinator Name Role Phone Andi Thomas MD Primary Care Provider [phone] Reason for Visit * Reason Comments Medication Refill Encounter Details Date Type Department Care Team (Late st Contact Info) Description 06/10/2022 Refill [place] [address] Andi Thomas MD [facility] [place] [address] Social History Tobacco Use Types Packs/Day Years [...] PM EDT Office Visit Neph[place] [address] Betzaida Cope APRN [facility] [place] [address] 06/23/2024 2:00 PM EDT Appointment Non-[place] [address] Owen Correia MD [facility] [place] [address] documented as of this encounter Visit Diagnoses Not on filedocumented in this encounter Care Teams Academic Coordinator Relationship Specialty Start Date End Date Andi Thomas MD [facility] [place] [address] PCP - General General Internal Medicine 03/01/22 documented as of this encounter
--- OUTSIDE RECORDS SUMMARY | 2024-06-09 02:54 | XMS_ITS | Encounter Summary ---
Author Organization [facility] [place] [address] Care Team Providers Care Nut Dehydrator Operator Name Role Phone Luther Garrison DO Primary Care Provider [phone] Encounter Details Date Type Department Care Team (Late st Contact Info) Description 04/19/2021 11:10 AM EDT Laboratory Appointment Lab at [facility] [address] [place] [address] Hyperkalemia Social History Tobacco Use Types Packs/Day Years [...] PM EDT Office Visit [place] [phone] Betzaida Cope APRN [facility] [place] [address] 06/23/2024 2:00 PM EDT Appointment [place] [phone] Owen Correia MD [facility] [place] [address] documented as of this encounter Procedures Procedure Name Priority Date/Time Associated Diagnosis Comments HC VENIPUNCTURE Routine 04/19/2021 11:23 AM EDT Hyperkalemia documented in this encounter Results * (ABNORMAL) Basic Metabolic Panel (non-fasting) (04/19/2021 11:23 AM EDT) Glucose 89 65 - 199 mg/dL [facility] Comment:Diabetes: >=200 mg/d L plus symptoms Blood Urea Nitrogen 16 10 - 20 mg/dL [facility] Creatinine 1.41 0.80 - 1.50 mg/dL [facility] Sodium 140 135 - 145 mmol/L [facility] Potassium 4.8 3.5 - 5.0 mmol/L [facility] Comment: Please note: ??Patients with WBC >100,000 may have falsely elevated Potassium levels. ??For accurate Potassium quantification in these patients send serum separator tube (gold top) for subsequent determinations. ??Contact the Clinical Chemistry Laboratory if there are any questions. Chloride 103 98 - 107 mmol/L [facility] Carbon Dioxide 28 22 - 31 mmol/L [facility] Anion Gap 9 5 - 15 mmol/L [facility] Calcium 9.1 8.5 - 10.5 mg/dL [facility] Est Glomerular Filtration Rate 54(L) >=60 mL/min/1. 73 m?? [facility] Comment: This patient? s estimated [...] In Lab Kyler Syed MD CHEMISTRY ORDERABLES [facility] [place] [address] documented in this encounter Visit Diagnoses Diagnosis Hyperkalemia Hyperpotassemia documented in this encounter Care Teams Nut Dehydrator Operator Relationship Specialty Start Date End Date Luther Garrison DO [facility] [place] [address] PCP - General General Internal Medicine 09/01/1902/05 documented as of this encounter
--- OUTSIDE RECORDS SUMMARY | 2024-06-09 02:55 | XMS_ITS | Encounter Summary ---
Author Organization [facility] [place] [address] Care Team Providers Care Children'S Service Supervisor Name Role Phone Rohit Anderson MD Primary Care Provider [phone] Reason for Referral * Diagnostic Test (Routine) - Closed Specialty Diagnoses / Procedures Referred By Contac t Referred To Contact Radiology Diagnoses Left renal artery stenosis Procedures MRI Angiogram Chest wwo Contrast MRI Angiogram Chest Abdomen wwo Contrast Mri Angiogram Chest and Abdomen W Contrast (aka MRA) Geovani Phan MD [facility] [address] [place] [address] Referral ID Status Reason Start Date Expiration Date V isits Requested Visits Authorized [id number] Closed Specialty Service Requested 05/29/2019 07/27/2019 1 1 Reason for Visit * Diagnostic Test (Routine) - Closed Specialty Diagnoses / Procedures Referred By Contac t Referred To Contact Radiology Diagnoses Left renal artery stenosis Procedures MRI Angiogram Chest wwo Contrast MRI Angiogram Chest Abdomen wwo Contrast Mri Angiogram Chest and Abdomen W Contrast (aka MRA) Geovani Phan MD [facility] [address] [place] [address] Referral ID Status Reason Start Date Expiration Date V isits Requested Visits Authorized [id number] Closed Specialty Service Requested 05/29/2019 07/27/2019 1 1 Encounter Details Date Type Department Care Team (Latest Contact Info) Description 07/06/2019 1:15 PM EDT - 07/06/2019 11:59 PM EDT Hospital [place] [address] Geovani Phan MD [facility] [place] [address] Left renal artery stenosis Discharge Disposition: Home Social History Tobacco Use Types Packs/Day Years Used Date Smoking Tobacco: Never Smokeless Tobacco: Never Alcohol Use Standard Drinks/Week Comments Yes 14 (1 standard drink = 0.6 oz pu re alcohol) Sex and Gender Information Value Date Recorded Sex Assigned at Not on file Gender Identity Not on file Sexual Orientation Not on file documented as of this encounter Medications at Time of Discharge Medication Sig Dispensed Refills Start Date End Date aspirin 81 mg Tablet, Delayed Release (E.C.) Take 1 tablet by mouth daily. 30 tablet 3 07/06/2019 10/30/2019 verapamil (CALAN-SR) 180 mg Tablet Sustained Release take 1 tablet by mouth once daily 0 01/05/2019 02/01/2020 lisinopril (PRINIVIL;ZESTRIL) 10 mg Tablet take 1 tablet by mouth once daily 0 01/19/2019 02/01/2020 documented as of this encounter Plan of Treatment Upcoming Encounters Date Type Department Care Team (Late st Contact Info) Description 06/16/2024 4:00 PM EDT Office Visit Nephrology [place] [address] Betzaida Cope APRN [facility] [place] [address] 06/23/2024 2:00 PM EDT Appointment Non-[place] [address] Owen Correia MD [facility] [place] [address] documented as of this encounter Procedures Procedure Name Priority Date/Time Associated Diagnosis Comments MRI CHEST ANGIOGRAM WITH AND WITHOUT CONTRAST Routine 07/06/2019 2:29 PM EDT Left renal artery stenosis documented in this encounter Results * (ABNORMAL) MRI Angiogram Chest wwo Contrast (07/06/2019 2:29 PM EDT) Anatomical Region Laterality Modality Chest Magnetic Resonan ce Impressions 07/07/2019 9:36 AM EDT Borderline dilatation of the ascending thoracic aorta [...] size that may raise concern for malignancy. Thank you for letting us participate in the care of this patient. For questions regarding this report, please contact the number below. ? Narrative 07/07/2019 9:36 AM EDT EXAMINATION: MRI ANGIOGRAM CHEST WWO CONTRAST CLINICAL HISTORY: ?aneurysm or dissection per Dr. Phan TECHNIQUE: Axial HASTE without contrast. 3-chamber, LVOT, aortic valve plane, and sagittal oblique thoracic aorta steady-state free precession without contrast. ?? Axial T1-weighted imaging with fat saturation. Sagittal oblique MRA of the thoracic aorta after intravenous administration of 12 cc of Dotarem. Axial reformation and 3-D MIP projection generated. Axial T1-weighted imaging with fat saturation after contrast. COMPARISON: Abdominal MRA 06/23/2019. CT chest 11/24/2018. FINDINGS: VASCULAR Heart: Limited images of the heart show that the heart is grossly normal in size. Normal findings of the left ventricular outflow tract. Aortic valve: Tricuspid trileaflet aortic valve. Normal opening area of the aortic valve. Diameters of the thoracic aorta are as follows. Aortic root: 35 mm (cusp to commissure) Sinotubular junction: 33 mm Ascending aorta: 41 mm Mid aortic arch: 26 mm Mid descending aorta: 23 mm Aorta at the level of the diaphragm: 22 mm Normal origin of the right brachiocephalic trunk, left common carotid artery, and left subclavian artery. All 3 are widely patent. NON-VASCULAR Pulmonary parenchyma: Evaluation on MR images is quite limited. Note is made of a small persistent nodularity at the right lateral base (series 3, image 25). Pleura: No effusion. Lymph nodes: No lymphadenopathy in the chest. Limited upper abdomen: Better evaluated on the dedicated images from 06/23/2019. Atrophic left kidney seen again. Skeleton: Within normal limits. Resulting Agency Comment Unexpected Finding Geovani Phan MD IMG MRI ORDERABLES documented in this encounter Visit Diagnoses Diagnosis Left renal artery stenosis Atherosclerosis of renal artery documented in this encounter Administered Medications Inactive Administered Medications - up to 3 most recent administrations Medication Order MAR Action Action Date Dose Rate Site gadoterate meglumine (DOTAREM) 0.5 mmol/mL (376.9 mg/mL) injection 0-100 mL 0-100 mL, Intravenous, ONCE PRN, 1 dose, Starting on Charlene 07/06/19 at 1430, Until Charlene 07/06/19 at 1420, Per Protocol, Radiology Contrast, Routine Given 07/06/2019 2:20 PM EDT 12 mLs documented in this encounter Care Teams Children'S Service Supervisor Relationship Specialty Start Date End Date Rohit Anderson MD [address] [facility] [address] [phone] PCP - General General Internal Medicine 12/18/18 documented as of this encounter
--- OUTSIDE RECORDS SUMMARY | 2024-06-09 02:55 | XMS_ITS | Encounter Summary ---
Author Organization Formerly [facility] [place] [address] Care Team Providers Care Survey Research Professor Name Role Phone Andi Thomas MD Primary Care Provider [phone] Encounter Details Date Type Department Care Team (Late st Contact Info) Description 02/19/2021 Refill [place] [phone] Zahraa Hansen MD [facility] GENER[facility] [place] [address] Social History Tobacco Use Types Packs/Day Years [...] PM EDT Office Visit Neph[place] [phone] Betzaida Cope APRN [facility] [place] [address] 06/23/2024 2:00 PM EDT Appointment Non-Invasive Cardiology [place] [facility] [address] Owen Correia MD [facility] [address] documented as of this encounter Visit Diagnoses Not on filedocumented in this encounter Additional Health Concerns Infection Onset Date Last Indicated Resolved Time Rule Out Respiratory 11/24/2023 11/25/2023 024 2:51 AM EDT Rule Out COVID-19 11/24/2023 11/25/2023 11/25/2023 2:51 AM EDT documented as of this encounter Care Teams Survey Research Professor Relationship Specialty Start Date End Date Andi Thomas MD [facility] [place] [address] PCP - General General Internal Medicine 03/01/22 documented as of this encounter
--- OUTSIDE RECORDS SUMMARY | 2024-06-09 02:55 | XMS_ITS | Encounter Summary ---
[place] [address] Care Team Providers Care Desk Pen Set Assembler Name Role Phone Luther Garrison DO Primary Care Provider [phone] Encounter Details Date Type Department Care Team (Latest Contact Info) Description 01/04/2020 3:30 PM EDT Clinical Support [place] [address] Renal infarction Social History Tobacco Use Types Packs/Day Years Used Date Smoking Tobacco: Never Smokeless Tobacco: Never Alcohol Use Standard Drinks/Week Comments Yes 7 (1 standard drink = 0.6 oz pur e alcohol) Sex and Gender Information Value Date Recorded Sex Assigned at Not on file Gender Identity Not on file Sexual Orientation Not on file documented as of this encounter Progress Notes * Maxine Mirza LPN - 01/04/2020 3:30 PM EDT Per request Dr Garrett, 24 hour Blood Pressure monitor put on patient. Patient given instruction about monitor, and will call if has questions/problems. Patient given box with paid UPS label to return monitor via UPS for download of report from monitor. Patient verbalized understanding, and was in agreement with this plan. documented in this encounter Plan of Treatment Upcoming Encounters Date Type Department Care Team (Late st Contact Info) Description 06/16/2024 4:00 PM EDT Office Visit [place] [address] Betzaida Cope APRN [facility] NEPHROLOGY [place] [phone] 06/23/2024 2:00 PM EDT Appointment Non-Invasive Cardiology Lab [facility] [place] [address] Owen Correia MD [facility] [place] [address] documented as of this encounter Procedures Procedure Name Priority Date/Time Associated Diagnosis Comments HC PROTEIN, QUANTITATIVE, URINE Routine 01/04/2020 3:30 PM EDT Renal infarction URINALYSIS WITH REFLEX CULTURE Routine 01/04/2020 3:30 PM EDT Renal infarction documented in this encounter Results * Urinalysis with reflex Culture (01/04/2020 3:30 PM EDT) Glucose, Urine Dipstick Negative Negative mg/dL [facility] Protein, Urine Dipstick Negative Negative mg/dL [facility] Bilirubin, Urine Dipstick Negative Negative mg/dL [facility] Comment: Clinical correlation required for positive Urine Bilirubin results as false positive may occur with some drugs and drug related products. If a false positive is suspected a serum total bilirubin should be considered if clinically indicated. Urobilinogen, Urine Dipstick Normal Normal mg/dL [facility] pH, Urn (dipstick) 6.0 5.0 - 8.0 [facility] Blood, Urine Dipstick Negative Negative mg/dL [facility] Ketone, Urine Dipstick Negative Negative mg/dL [facility] Nitrite, Urine Dipstick Negative Negative [facility] Leukocytes, Urine Dipstick Negative Negative [facility] Appearance, Urine Dipstick Clear Clear [facility] Specific [place] Urine Automated 1.014 1.002 - 1.030 [facility] Color, Urine Dipstick Yellow Yellow [facility] Reflex to Culture No [facility] Urine specimen (specimen) 01/04/2020 3:30 PM EDT 01/04/2020 3:59 PM EDT Narrative Resulting Agency Comment Spec In Lab Ernie Garrett MD URINE ORDERABLES Performing Organization Address City/[facility] Co de Phone Number [facility] [place] [address] * Protein/Creatinine Ratio, urine (01/04/2020 3:30 PM EDT) Creatinine, Urine 62 mg/dL [facility] Protein, Urine <6 0 - 12 mg/dL [facility] Protein / Creatinine Ratio, Urine <0.1 ratio [facility] Urine specimen (specimen) 01/04/2020 3:30 PM EDT 01/04/2020 3:59 PM EDT Narrative Resulting Agency Comment Spec In Lab Ernie Garrett MD URINE ORDERABLES Performing Organization Address [facility] Co de Phone Number [facility] [place] [address] documented in this encounter Visit Diagnoses Diagnosis Renal infarction Vascular disorders of kidney documented in this encounter Care Teams Desk Pen Set Assembler Relationship Specialty Start Date End Date Luther Garrison DO [facility] [place] [address] PCP - General General Internal Medicine [birth year]1902[birth year] documented as of this encounter
--- OUTSIDE RECORDS SUMMARY | 2024-06-09 02:55 | XMS_ITS | Encounter Summary ---
Author Organization [facility] [place] [address] Care Team Providers Care State Farm Agent Name Role Phone Bladimir Luther Hernandez DO Primary Care Provider [phone] Reason for Visit * Reason Onset Date Comments Medication Refill 02/15/2021 Encounter Details Date Type Department Care Team (Late st Contact Info) Description 02/15/2021 Refill [place] [phone] Zahraa Hansen MD [facility] [place] [address] Elevated serum creatinine Social History Tobacco Use [...] PM EDT Office Visit Neph[place] [phone] Betzaida Cope APRN [facility] [place] [address] 06/23/2024 2:00 PM EDT Appointment Non-[place] [address] Owen Correia MD [facility] [place] [address] documented as of this encounter Visit Diagnoses Diagnosis Elevated serum creatinine Other nonspecific findings on examination of blood documented in this encounter Care Teams State Farm Agent Relationship Specialty Start Date End Date Luther Garrison DO [facility] [place] [address] PCP - General General Internal Medicine [birth year]02/[birth year] documented as of this encounter
--- OUTSIDE RECORDS SUMMARY | 2024-06-09 02:55 | XMS_ITS | Encounter Summary ---
[place] [address] Care Team Providers Care Director Of Global Sales Name Role Phone Luther Garrison DO Primary Care Provider [phone] Encounter Details Date Type Department Care Team (Late st Contact Info) Description 08/07/2020 Telephone [place] [phone] Zahraa Deleon Social History Tobacco Use Types Packs/Day Years [...] encounter Miscellaneous Notes * Telephone Encounter - Consuelo Castillo RN - 08/09/2020 8:19 AM EST Called to let pt know order for COVID test has been faxed to [facility] * Telephone Encounter - Zahraa Deleon - 08/07/2020 1:47 PM EST Requested test or order: Covid Reason requesting test or order: direct exposure from 2 of their children Date patient wants to come in: 08-12-20 Location where patient wants it to be performed (if an outside facility, please include name of facility and phone/fax number): [facility] Please fax order. State ordered. Caller and relationship (if other than patient-full name): Patient Best time to call back: any Ok to leave a message: yes Ok to send - message no documented in this encounter Plan of Treatment Upcoming Encounters Date Type Department Care Team (Late st Contact Info) Description 06/16/2024 4:00 PM EDT Office Visit Nephrology [place] [phone] Betzaida Cope, [facility] [place] [address] 06/23/2024 2:00 PM EDT Appointment Non-Invasive Cardiology Lab [place] [phone] Owen Correia MD [facility] [place] [address] documented as of this encounter Visit Diagnoses Diagnosis COVID-19 ruled out documented in this encounter Care Teams Director Of Global Sales Relationship Specialty Start Date End Date Luther Garrison DO [facility] [place] [address] PCP - General General Internal Medicine 09/[birth year]/1902/05 documented as of this encounter
--- OUTSIDE RECORDS SUMMARY | 2024-06-09 02:55 | XMS_ITS | Encounter Summary ---
[place] [address] Care Team Providers Care Senior Automation Engineer Name Role Phone Luther Garrison DO Primary Care Provider [phone] Reason for Referral * Diagnostic Test (Routine) - Closed Specialty Diagnoses / Procedures Referred By Contac t Referred To Contact Cardiology Diagnoses Palpitations Procedures Geovani Posey MD [facility] [place] [address] [facility] [place] [address] Referral ID Status Reason Start Date Expiration Date V isits Requested Visits Authorized [id number] Closed Specialty Service Requested 08/21/2020 02/19/2021 1 1 Reason for Visit * Diagnostic Test (Routine) - Closed Specialty Diagnoses / Procedures Referred By Contac t Referred To Contact Cardiology Diagnoses Palpitations Procedures Geovani Posey MD [facility] [place] [address] [facility] [place] [address] Referral ID Status Reason Start Date Expiration Date V isits Requested Visits Authorized [id number] Closed Specialty Service Requested 08/21/2020 02/19/2021 1 1 Encounter Details Date Type Department Care Team (Latest Contact Info) Description 08/21/2020 7:48 AM EST - 08/21/2020 11:59 PM EST Hospital Encounter Non-Invasive [place] [address] Geovani Phan MD [facility] [place] [address] Palpitations Discharge Disposition: Home Social History Tobacco [...] tablet by mouth daily. 90 tablet 3 02/02/2020 02/15/2021 verapamil SR (Calan-SR) 180 mg Tablet Sustained Release Take 1 tablet by mouth daily. 90 tablet 3 02/02/2020 02/04/2021 aspirin EC 81 mg Tablet, Delayed Release (E.C.)Indications:Atypic al chest pain Take 1 tablet by mouth daily. 30 tablet 11 10/30/2019 11/15/2020 documented as of this encounter Plan of Treatment Upcoming Encounters Date Type Department Care Team (Late st Contact Info) Description 06/16/2024 4:00 PM EDT Office Visit [place] [address] Betzaida Cope, [facility] [place] [address] 06/23/2024 2:00 PM EDT Appointment Non-[place] [address] Owen Correia MD [facility] [place] [address] documented as of this encounter Procedures Procedure Name Priority Date/Time Associated Diagnosis Comments ZIOPATCH Routine 08/21/2020 7:53 AM EST Palpitations documented in this encounter Results * Ziopatch (08/21/2020 7:53 AM EST) Anatomical Region Laterality Modality Other Narrative 09/11/2020 5:16 PM EST [facility] ? Zio Patch? Ambulatory Cardiac Event Monitor Report Study Dates: 08/24/2020-08/31/2020 Analysis Time: 6 days and 15 hours (after artifact removed) Indication(s) provided: ??Palpitations Technical Quality: Fair, artifact was noted on some strips. ?? Summary Data Predominant rhythm: Normal sinus rhythm with somewhat blunted heart rate variation and a tendency for sinus bradycardia. ?HR Range 35- 141 BPM , average rate 58 BPM. ??During the slowest HR, during night time/sleeping hours, sinus bradycardia was noted. ??During the fastest HR, sinus tachycardia was noted. ?? Selected HR histogram: ?? Intervals: ??Normal Heart Block: ??None Pauses: ??None Atrial fibrillation : ??No atrial fibrillation or atrial flutter was observed. Ectopic beats There were rare ??( <1% of total beats) supraventricular premature beats consisting of primarily premature atrial contractions (PACs), with rare couplets and triplets ( <1 % each). ?? There was 1 supraventricular runs, the fastest lasting 7 beats reaching a maximum rate of 115 BPM, and are runs of PACs. There were rare ??(<1 % of total beats) ventricular premature beats, and rare ventricular couplets (<1%), no triplets. ?? No ventricular bigeminy and/or trigeminy episodes were seen. There were 1 run of ??5-beat non-sustained ventricular tachycardia averaging 137 BPM. Triggered and Patient Diary Events There were 3 patient-triggered events and no diary entries recorded. ?? Sinus rhythm with no ectopy or arrhythmia was observed during these events. Selected Asymptomatic Strips: Conclusion(s): ?? The predominant rhythm was sinus rhythm with average HR= 58 BPM,with relatively blunted heart rate variation (on Verapamil) and a tendency for sinus bradycardia. ?? There is rare supraventricular ectopy and rare ??ventricular generally lowgrade ambient ectopy. Patient triggered events and diary entries: ??3 events, associated with normal sinus rhythm and no ectopy or arrhythmias. No atrial fibrillation or atrial flutter was detected. ?? No sustained tachyarrhythmias nor any pathologic pauses detected. JABARI PARKS MD. Cardiovascular Medicine Geovani Phan MD CARDIAC SERVICES ORD ERABLES documented in this encounter Visit Diagnoses Diagnosis Palpitations documented in this encounter Care Teams Senior Automation Engineer Relationship Specialty Start Date End Date Luther Garrison DO [facility] [place] [address] PCP - General General Internal Medicine 09/01/1902/05 documented as of this encounter
--- OUTSIDE RECORDS SUMMARY | 2024-06-09 02:55 | XMS_ITS | Encounter Summary ---
Author Organization [facility] Address [facility] [place] [address] Care Team Providers Care Control Systems Designer Name Role Phone Rohit Anderson MD Primary Care Provider [phone] Encounter Details Date Type Department Care Team (Late st Contact Info) Description 02/14/2019 4:30 PM EDT Office Visit [place] [address] Ernie Garrett MD [facility] [place] [address] Renal infarction Social History Tobacco Use Types [...] Sign Reading Time Taken Comments Blood Pressure 119/86 02/14/2019 4:19 PM EDT Pulse 70 02/14/2019 4:19 PM EDT Temperature - - Respiratory Rate - - Oxygen Saturation 100% 02/14/2019 4:19 PM EDT Inhaled Oxygen Concentration - - Weight 61.7 kg (136 lb) 02/14/2019 4:19 PM EDT Height 170.2 cm (5' 7) 02/14/2019 4:19 PM EDT Body Mass Index 21.3 02/14/2019 4:19 PM EDT documented in this encounter Progress Notes * Ernie Garrett MD - 02/14/2019 4:30 PM EDT 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 No source for emboli were identified. He did have a recent ZIO Patch which is in the process of beingread by cardiology. The patient overall is doing much better. His blood pressure on average is in the 120/80 range at home. He is no longer having any pain or other abdominal symptoms. The patient denies any hematuria. He continues to take his Lovenox twice daily subcutaneously. The plan duration of anticoagulation therapy was 6 months. This of course will be tempered by the results of his cardiac monitoring. Physical exam: BP 119/86 Pulse 70 Ht 170.2 cm (5' 7) Wt 61.7 kg (136 lb) SpO2 100% BMI 21.30 kg/m?? Skin unremarkable, HEENT unremarkable, lungs clear, cardiac exam regular rhythm, abdomen benign, extremities without edema, no CVA tenderness. Recent Results (from the past 24 hour(s)) Creatinine Result Value Ref Range Creatinine 1.53 (H) 0.80 - 1.50 mg/dL eGFR 49 (L) >=60 mL/min/1.73 m?? eGFR 57 (L) >=60 mL/min/1.73 m?? Basic Metabolic Panel (non-fasting) Result Value Ref Range Glucose Lvl 82 65 - 199 mg/dL BUN 20 10 - 20 mg/dL Creatinine 1.53 (H) 0.80 - 1.50 mg/dL Sodium 142 135 - 145 mmol/L Potassium 4.5 3.5 - 5.0 mmol/L Chloride 102 98 - 107 mmol/L CO2 28 22 - 31 mmol/L Anion Gap 12 5 - 15 mmol/L Calcium 9.3 8.5 - 10.5 mg/dL eGFR 49 (L) >=60 mL/min/1.73 m?? eGFR 57 (L) >=60 mL/min/1.73 m? verapamil (CALAN-SR) 180 mg Tablet Sustained Release ??? lisinopril (PRINIVIL;ZESTRIL) 10 mg Tablet ??? acetaminophen (TYLENOL) 325 mg Tablet ??? enoxaparin (LOVENOX) 80 mg/0.8 mL Syringe Cardiac Electrophysiology Zio Monitor Study Initiated: 20 Jan 2019 ?? Duration: 12 days 21 hours (after removal of ~22 hours of artifact) Indication: Palpitations Result: The overall sinus rhythm rate range was 38-143/minute, and averaged 61/minute. The predominant underlying rhythm throughout the monitoring period was conducted sinus rhythm. The slowest heart rates tended to occur overnight, when also the least amount of heart rate variation tended to be manifest. ?? No pauses >3 seconds were seen, and there was no high grade atrioventricular conduction block reported or observed at normal sinus rates. There was a <1.0% burden of isolated ectopic supraventricular beats detected, and rare couplets and triplets were detected as well. There were 7 supraventricular runs detected (the run with the fastest interval lasted 6 beats with a maximum rate of 154/minute, and the longest lasted 7 beats at amean rate of 112/minute); the mean rate of all of these runs was 114/minute. ?? There was a <1.0% burden of isolated ectopic ventricular beats detected, and rare couplets (no triplets) were detected as well. There were no ventricular runs detected. The patient wrote in no timed diary entries for symptoms. There were 3 patient- triggered events that corresponded to normal sinus rhythm. ?? Conclusion: ?? This monitor study was remarkable for sinus rhythm. Infrequent nonsustained supraventricular tachycardia runs (without any atrial flutter/fibrillation) and a low overall burden of ectopy were detected. ____ Interpreted by Mario Hart MD, [facility] ? Assessment and plan: I discussed the role of the AKUA inhibitor in delaying progression of renal insufficiency. The recent increase in creatinine most likely reflects improve muscle mass as he is backto exercising. I will wait for the results of his cardiac monitoring and then we can discuss what to do with his anticoagulation for the next several months. The patient had trace heme and trace protein on urine dipstick but otherwise seems to have recovered from his renal infarction. Psychologically he seems to be feeling better. Unfortunately his daughter had been hit by a car recently althoughshe is doing okay this is certainly another stress in a fairly short period of time. I will plan onseeing him back in 2 months to readdress the anticoagulation issue and follow-up on his renal function. The patient's cardiac monitoring study did not show any episodes of atrial fibrillation or flutter. I assume this means he would need any long- term anticoagulation so it looks like based on the vascular surgery opinion we should plan for 6 months of anticoagulation. I do not believe this needs to be done with the current Meekx, he could either go on to Coumadin or another oral anticoagulant. I would believe this to his primary care doctor documented in this encounter Plan of Treatment Upcoming Encounters Date Type Department Care Team (Late st Contact Info) Description 06/16/2024 4:00 PM EDT Office Visit Ne[place] [phone] Betzaida Cope APRN [facility] [place] [address] 06/23/2024 2:00 PM EDT Appointment Non-Invasive [place] [address] Owen Correia MD [facility] [place] [address] documented as of this encounter Visit Diagnoses Diagnosis Renal infarction Vascular disorders of kidney documented in this encounter Care Teams Control Systems Designer Relationship Specialty Start Date End Date Rohit Anderson MD [address] [facility] [address] [place] [address] PCP - General General Internal Medicine 12/18/18 documented as of this encounter
--- OUTSIDE RECORDS SUMMARY | 2024-06-09 02:55 | XMS_ITS | Encounter Summary ---
[place] [address] Care Team Providers Care Assistant Property Manager Name Role Phone Luther Garrison DO Primary Care Provider [phone] Reason for Referral * Diagnostic Test (Routine) - Closed Specialty Diagnoses / Procedures Referred By Contac t Referred To Contact Cardiology Diagnoses Palpitations Procedures Geovani Posey MD [facility] [address] [facility] [place] [address] Referral ID Status Reason Start Date Expiration Date V isits Requested Visits Authorized [id number] Closed Specialty Service Requested 08/21/2020 02/19/2021 1 1 Encounter Details Date Type Department Care Team (Late st Contact Info) Description 08/15/2020 Orders Only Cardiology at [address] [address] Geovani Phan MD [facility] [place] [address] Palpitations Social History Tobacco Use Types Packs/Day Years [...] PM EDT Office Visit [place] [phone] Betzaida Cope APRN [facility] NEPHROLOGY [place], [place] [id number] 06/23/2024 2:00 PM EDT Appointment Non-Invasive [place] [address] Owen Correia MD [facility] [place] [address] documented as of this encounter Results * Ziopatch (08/21/2020 7:53 AM EST) Anatomical Region Laterality Modality Other Narrative 09/11/2020 5:16 PM EST [facility] ? Zio Patch? Ambulatory Cardiac Event [...] in this encounter Visit Diagnoses Diagnosis Palpitations Palpitations documented in this encounter Care Teams Assistant Property Manager Relationship Specialty Start Date End Date Luther Garrison DO [facility] [place] [address] PCP - General General Internal Medicine 09/[birth year]02[birth year] documented as of this encounter
--- OUTSIDE RECORDS SUMMARY | 2024-06-09 02:55 | XMS_ITS | Encounter Summary ---
[facility] Organization [facility] [place] [address] Care Team Providers Care Comber Fixer Name Role Phone Rohit Anderson MD Primary Care Provider [phone] Reason for Visit * Reason Comments Hypertension Encounter Details Date Type Department Care Team (Late st Contact Info) Description 07/27/2019 8:56 PM EST - 07/27/2019 10:51 PM EST [place] [address] Shabbir Chua MD [facility] [place] [address] Hypertension, unspecified type Discharge Disposition: Home Social History Tobacco Use [...] Sign Reading Time Taken Comments Blood Pressure 129/92 07/27/2019 10:30 PM EST Pulse 67 07/27/2019 10:45 PM EST Temperature 37.1 ??C (98.8 ??F) 07/27/2019 8:38 PM ES T Respiratory Rate 19 07/27/2019 10:45 PM EST Oxygen Saturation 99% 07/27/2019 10:45 PM EST Inhaled Oxygen Concentration - - Weight 60.8 kg (134 lb) 07/27/2019 8:38 PM EST Height 170.2 cm (5' 7) 07/27/2019 8:38 PM EST Body Mass Index 20.99 07/27/2019 8:38 PM EST documented in this encounter Discharge Instructions * Discharge Instructions* Benigno Atkins MD - 07/27/2019 10:25 PM EST You were seen in the emergency department today for your hypertension. Your EKG and laboratory work-up is reassuring. Please follow-up with your primary care doctor. documented in this encounter Medications at Time [...] 01/19/2019 02/01/2020 documented as of this encounter ED Notes * Karlene Alba RN - 07/27/2019 10:41 PM EST 2134; EKG completed and viewed by Dr. Chua. Patient with clear lung sounds bilaterally, heart rate regular in the 50's. Reports when episode came on he felt flush and cold, and noted that his chest was uncomfortable/rapid heart rate. He reports he was sitting and not exerting himself when this occurred. He has no cardiac history, has had a similar episode in the past. Has history of kidney issuesand he is very cautious in regards to this and his blood pressure. No changes in blood pressure medications, did recently stop his blood thinner that he has taken since he had the kidney failure due to a clot. 2139; IV access established to right antecubital, blood work obtained as ordered. Patient toleratedwell. Patient verified with two identifiers and labeled at the bedside. Call cervantes placed within reach, oriented to usage with understanding verbalized. Instructed to call for assistance when getting out of bed. All side rails up. 4; Patient up to the bathroom with steady gait and is asymptomatic. SBP in the 130's. 2240; Dr. Chua at bedside. * Benigno Atkins MD - 07/27/2019 9:11 PM EST Moshe Castillo is an 58 y.o. male who presents to the ED with: Chief Complaint Patient presents with ??? Hypertension I saw this patient 07/27/2019 at ~ 9:11 PM HPI Moshe Castillo is a 58 y.o. male with a PMH significant for renal artery stenosis who presents to the Emergency Department with concern about hypertension with max systolic blood pressure of 160s overmax diastolic blood pressure of 100s at home over the last 2 days. He thinks he may have felt a twinge of chest discomfort yesterday. No shortness of breath. No sustained chest discomfort. He states it only lasted for about 3 seconds. He cannot describe it. He cannot remember any exacerbating factors. It went away spontaneously. He is pain-free today. He is worried about his systolic blood pressure of 150 stating the last time my blood pressure was this high 1 of my kidneys shut down. He states this was earlier this year. He denies flank pain. He denies change in urine output. He denies abdominal pain. He denies recent illness. He denies palpitations with this. Social History Socioeconomic History ??? Marital status: Spouse name: Not on file ??? Number of children: Not on file ??? Years of education: Not on file ??? Highest education level: Not on file Occupational History ??? Not on file Social Needs ??? Financial resource strain: Not on file ??? Food insecurity: Worry: Not on file Inability: Not on file ??? Transportation needs: Medical: Not on file Non-medical: Not on file Tobacco Use ??? Smoking status: Never Smoker ??? Smokeless tobacco: Never Used Substance and Sexual Activity ??? Alcohol use: Yes Alcohol/week: 14.0 standard drinks Types: 14 Cans of beer per week Frequency: 4 or more times a week Drinks per session: 1 or 2 ??? Drug use: Never ??? Sexual activity: Not Currently Lifestyle ??? Physical activity: Days per week: Not on file Minutes per session: Not on file ??? Stress: Not on file Relationships ??? Social connections: Talks on phone: Not on file Gets together: Not on file Attends faith service: Not on file Active member of club or organization: Not on file Attends meetings of clubs or organizations: Not on file Relationship status: Not on file ??? Intimate partner violence: Fear of current or ex partner: Not on file Emotionally abused: Not on file Physically abused: Not on file Forced sexual activity: Not on file Other Topics Concern ??? Do You live alone? Not Asked ??? Tobacco in Home Not Asked Social History Narrative ??? Not on file Review of Systems: Review of Systems Constitutional: Negative for appetite change, diaphoresis and fever. HENT: Negative for hearing loss and sore throat. Eyes: Negative for photophobia and pain. Respiratory: Negative for chest tightness and shortness of breath. Cardiovascular: Negative for chest pain. Gastrointestinal: Negative for abdominal pain and diarrhea. Endocrine: Negative for cold intolerance. Genitourinary: Negative for dysuria. Musculoskeletal: Negative for myalgias and neck pain. Skin: Negative for rash. Neurological: Negative for weakness and headaches. Psychiatric/Behavioral: Negative for confusion. Vital Signs: Patient Vitals for the past 24 hrs: BP Temp Temp src Pulse Resp SpO2 Height Weight 07/27/19 2245 -- -- -- 67 19 99 % -- -- 07/27/19 2230 (!) 129/92 -- -- 51 14 100 % -- -- 07/27/19 2200 130/87 -- -- 56 12 96 % -- -- 07/27/19 2145 -- -- -- 54 15 96 % -- -- 07/27/19 2038 (!) 153/100 37.1 ??C (98.8 ??F) Oral 59 18 100 % 170.2 cm (5' 7) 60.8 kg (134 lb) I have reviewed the vital signs, which demonstrates resolving mild hypertension, otherwise afebrilewith vss and within normal limits Physical Exam: Physical Exam Constitutional: He is oriented to person, place, and time. He appears well- developed and well-nourished. No distress. Well developed, pleasant male sitting up in bed in no apparent distress. HENT: Head: Normocephalic and atraumatic. Eyes: Pupils are equal, round, and reactive to light. Conjunctivae and EOM are normal. Neck: Neck supple. Cardiovascular: Normal rate, regular rhythm, normal heart sounds and intact distal pulses. Exam reveals no gallop and no friction rub. No murmur heard. Pulmonary/Chest: Effort normal and breath sounds normal. No respiratory distress. Abdominal: Soft. Bowel sounds are normal. He exhibits no distension. There is no tenderness. Musculoskeletal: Normal range of motion. He exhibits no edema or deformity. Neurological: He is alert and oriented to person, place, and time. Skin: Skin is warm and dry. No rash noted. He is not diaphoretic. No erythema. Psychiatric: He has a normal mood and affect. His behavior is normal. Nursing note and vitals reviewed. ED Course: - Patient was evaluated and discussed with Dr. Chua - Medications, allergies and past medical history reviewed - Nursing notes and vital signs reviewed - I have reviewed the labs, which are significant for: Recent Results (from the past 24 hour(s)) Basic Metabolic Panel (non-fasting) Result Value Ref Range Glucose Lvl 86 65 - 199 mg/dL BUN 18 10 - 20 mg/dL Creatinine 1.31 0.80 - 1.50 mg/dL Sodium 142 135 - 145 mmol/L Potassium 4.4 3.5 - 5.0 mmol/L Chloride 106 98 - 107 mmol/L CO2 25 22 - 31 mmol/L Anion Gap 11 5 - 15 mmol/L Calcium 9.1 8.5 - 10.5 mg/dL eGFR 60 >=60 mL/min/1.73 m?? eGFR 69 >=60 mL/min/1.73 m?? Troponin Result Value Ref Range Troponin-T <0.01 0.00 - 0.00 ng/mL Hemogram Result Value Ref Range WBC 4.3 4.0 - 9.5 x10(3)/mcL RBC 4.58 4.58 - 5.54 x10(6)/mcL Hemoglobin 14.5 13.7 - 16.5 gm/dL Hematocrit 42.4 40.5 - 48.5 % MCV 92.6 82.9 - 93.1 fL MCH 31.7 27.5 - 32.1 pg MCHC 34.2 32.0 - 35.7 gm/dL Platelets 170 145 - 357 x10(3)/mcL RDWSD 41.2 36.0 - 45.0 fL RDWCV 12.0 11.4 - 13.8 % MPV 11.4 7.6 - 12.9 fL nRBC % Auto 0.0 % nRBC Abs Auto 0.000 0.000 - 0.000 x10(3)/mcL Differential, Automated Result Value Ref Range Neutrophils % 50.3 % Neutr Abs (ANC) 2.16 1.70 - 6.10 x10(3)/mcL Lymphocytes % 30.9 % Lymphocytes Abs 1.3 0.9 - 3.2 x10(3)/mcL Monocytes % 11.9 % Monocyte Abs 0.5 0.3 - 0.9 x10(3)/mcL Eosinophils % 5.3 % Eosinophils Abs 0.2 0.0 - 0.4 x10(3)/mcL Basophils % 1.4 % Basophils Abs 0.1 0.0 - 0.1 x10(3)/mcL Immature Gran % 0.20 % [place] Gran Abs 0.01 0.00 - 0.04 x10(3)/mcL Blue Tube HOLD Result Value Ref Range Blue Hold Sample in lab. Gold Tube HOLD Result Value Ref Range Gold Hold Sample in lab. - I have reviewed the EKG, which is significant for: Normal sinus rhythm, normal axis, [place], QRS and QTC are within normal limits. There is no evidence of arrhythmia or ischemic changes. Assessment and Plan: MDM: Patient presents essentially with asymptomatic hypertension. Given his considerable anxiety surrounding his anecdote of having an acute kidney injury associated with relatively mild hypertension in the past, I offered to obtain renal function. As he had symptoms over 24 hours ago a troponin was sent as a screening labs as well. Given a negative troponin will be on 6 hours out from onset of any symptoms, patient is asymptomatic here and I do not think that this story is congruent with typical ACS I do not think any further work-up or provocative testing needs to be done. He does not have any infectious symptoms. Renal function is within his normal limits. He is reassured by this. He will be discharged home with instructions to follow-up with his primary care provider to discuss his hypertension further. Return precautions were verbally discussed with the patient. The patient expressed understanding that they could come back to the ED at any time and agreed to the follow-up plan. Assessment: Asymptomatic hypertension Plan: - Discharge home - Follow up with PCP - Return precautions were discussed with the pt Benigno Atkins MD EM Resident, PGY-3 07/27/19 9:11 PM Benigno Atkins MD Resident 07/28/19 0100 Associated attestation - Shabbir Chua MD - 07/29/2019 5:30 PM EST ED ATTENDING ATTESTATION NOTE The patient was seen in conjunction with Dr. Atkins, the resident physician. I have independently performed the oneil portions of the history and physical exam. I have reviewed the nursing notes, vitalsigns, and all diagnostic studies personally including labs, imaging studies and EKGs. I have discussed the details of the case with the resident and agree with the assessment and plan as described in the resident note unless noted otherwise. documented in this encounter Plan of Treatment Upcoming Encounters Date Type Department Care Team (Late st Contact Info) Description 06/16/2024 4:00 PM EDT Office Visit [place] [address] Betzaida Cope APRN [facility] [place] [address] 06/23/2024 2:00 PM EDT Appointment Non-[place]vasive [place] [address] Owen Correia MD [facility] [place] [address] Pending Results Name Type Priority Associated Diagnoses Date /Time EKG 12 Lead ECG STAT 07/27/2019 9: 35 PM EST documented as of this encounter Procedures Procedure Name Priority Date/Time Associated Diagnosis Comments HEMOGRAM STAT 07/27/2019 9:40 PM EST DIFFERENTIAL, AUTOMATED STAT 07/27/2019 9:40 PM EST GOLD TUBE HOLD STAT 07/27/2019 9:40 PM EST BLUE TUBE HOLD STAT 07/27/2019 9:40 PM EST HC CBC,PLT & AUTO DIFF STAT 07/27/2019 9:40 PM EST HC TROPONIN T STAT 07/27/2019 9:40 PM EST BASIC METABOLIC PANEL STAT 07/27/2019 9:40 PM EST EKG 12-LEAD STAT 07/27/2019 9:35 PM EST documented in this encounter Results * Gold Tube HOLD (07/27/2019 9:40 PM EST) [facility] Gold Hold Sample in lab. [facility] Blood specimen (specimen) Venous Draw / Unknown 07/27/2019 9:40 PM EST 07/27/2019 9:54 PM EST Benigno Atkins MD CHEMISTRY ORDERABLES Performing Organization Address City/[facility]/ZIP Co de Phone Number [facility] [place] [address] * Blue Tube HOLD (07/27/2019 9:40 PM EST) [facility] Blue Hold Sample in lab. [facility] Blood specimen (specimen) Venous Draw / Unknown 07/27/2019 9:40 PM EST 07/27/2019 9:54 PM EST Benigno Atkins MD HEMATOLOGY ORDERABLE S [facility] [place] [address] * Differential, Automated (07/27/2019 9:40 PM EST) Pathologist [facility] Neutrophil % 50.3 % [facility] Neutrophil Absolute 2.16 1.70 - 6.10 x10(3)/mcL [facility] Lymph % 30.9 % [facility] Lymphocytes Abs 1.3 0.9 - 3.2 x10(3)/[facility] Monocyte % 11.9 % [facility] Monocyte Abs 0.5 0.3 - 0.9 x10(3)/[facility] Eos % 5.3 % [facility] Eosinophils Abs 0.2 0.0 - 0.4 x10(3)/[facility] Basophil % 1.4 % [facility] Baso Absolute 0.1 0.0 - 0.1 x10(3)/[facility] Immature Gran % 0.20 % [facility] Comment: Immature granulocytes(IG's)percentage and absolute count will include metamyelocytes, myelocytes, and promyelocytes. Blood smears from CBCs yielding IG's will be scanned manually for concordance. If this scan disagrees with the automated IG or if promyelocytes are noted, a manual differential will be performed. Immature Gran Absolute 0.01 0.00 - 0.04 x10(3)/[facility] Blood specimen (specimen) 07/27/2019 9:40 PM EST 07/27/2019 9:53 PM EST Narrative Resulting Agency Comment Spec In Lab Benigno Atkins MD HEMATOLOGY ORDERABLE S Performing Organization Address City/State/[facility] Co de Phone Number [facility] [place] [address] * Hemogram (07/27/2019 9:40 PM EST) White Blood Cell 4.3 4.0 - 9.5 x10(3)/[facility] Red Blood Cell 4.58 4.58 - 5.54 x10(6)/[facility] Hemoglobin 14.5 13.7 - 16.5 gm/dL [facility] Hematocrit 42.4 40.5 - 48.5 % [facility] Mean Cell Volume 92.6 82.9 - 93.1 fL [facility] Mean Cell Hemoglobin 31.7 27.5 - 32.1 pg [facility] Mean Cell Hemoglobin Concentration 34.2 32.0 - 35.7 gm/dL [facility] Platelet 170 145 - 357 x10(3)/[facility] RDW Standard Deviation 41.2 36.0 - 45.0 fL [facility] RDW coefficient of variation 12.0 11.4 - 13.8 % [facility] Mean Platelet Volume 11.4 7.6 - 12.9 fL [facility] NRBC% auto 0.0 % [facility] NRBC Absolute 0.000 0.000 - 0.000 x10(3)/[facility] Blood specimen (specimen) 07/27/2019 9:40 PM EST 07/27/2019 9:53 PM EST Narrative Resulting Agency Comment Spec In Lab Benigno Atkins MD HEMATOLOGY ORDERABLE S [facility] [place] [address] * Troponin (07/27/2019 9:40 PM EST) Troponin-T <0.01 0.00 - 0.00 ng/mL [facility] Comment: The 99th percentile for Troponin T is less than 0.01 ng/mL, any detectable cTnT concentration using this assay should be considered elevated. According to the third universal definition of myocardial infarction the following criteria with a clinical presentation consistent with acute myocardial ischemia meets the diagnosis for a myocardial infarction (RI). Detection of a rise and/or fall of cTnT, with at least one value greater than the 99th percentile (> or = 0.01) and with at least one of the following ?? Symptoms of ischemia ?? New or presumed new significant [id number] wave (ST-T) changes or new left bundle [...] additional sample may be indicated. Reference: Third [place] Definition of Myocardial Infarction. Journal of the [employer] 2012;60:1581-98 Blood specimen (specimen) 07/27/2019 9:40 PM EST 07/27/2019 9:53 PM EST Narrative Resulting Agency Comment Spec In Lab Anitra Gamble MD CHEMISTRY ORDERABLES [facility] [place] [address] * Basic Metabolic Panel (non-fasting) (07/27/2019 9:40 PM EST) Glucose 86 65 - 199 mg/dL [facility] Comment:Diabetes: >=200 mg/d L plus symptoms Blood Urea Nitrogen 18 10 - 20 mg/dL [facility] Creatinine 1.31 0.80 - 1.50 mg/dL [facility] Sodium 142 135 - 145 mmol/L [facility] Potassium 4.4 3.5 - 5.0 mmol/L [facility] Comment: Please note: ??Patients with WBC >100,000 may have falsely elevated Potassium levels. ??For accurate Potassium quantification in these patients send serum separator tube (gold top) for subsequent determinations. ??Contact the Clinical Chemistry Laboratory if there are any questions. Chloride 106 98 - 107 mmol/L [facility] Carbon Dioxide 25 22 - 31 mmol/L [facility] Anion Gap 11 5 - 15 mmol/L [facility] Calcium 9.1 8.5 - 10.5 mg/dL [facility] Est Glomerular Filtration Rate 60 >=60 mL/min/1. 73 m?? [facility] Comment: The eGFR was calculated using the CKD-EPI equation. As with all creatinine based estimates of kidney function, eGFR values calculated with the CKD-EPI equation are not accurate in patients with acute kidney failure, extremes of body mass or the acutely ill. [email or web address] eGFR 69 >=60 mL/min/1. 73 m?? [facility] Comment: The eGFR was calculated using the CKD-EPI equation. As with all creatinine based estimates of kidney function, eGFR values calculated with the CKD-EPI equation are not accurate in patients with acute kidney failure, extremes of body mass or the acutely ill. [email or web address] Blood specimen (specimen) 07/27/2019 9:40 PM EST 07/27/2019 9:53 PM EST Narrative Resulting Agency Comment Spec In Lab Anitra Gamble MD CHEMISTRY ORDERABLES [facility] [place] [address] documented in this encounter Visit Diagnoses Diagnosis Hypertension, unspecified type documented in this encounter Care Teams Comber Fixer Relationship Specialty Start Date End Date Rohit Anderson MD [address] [facility] [address] [place] [address] PCP - General General Internal Medicine 12/18/18 documented as of this encounter
--- OUTSIDE RECORDS SUMMARY | 2024-06-09 02:55 | XMS_ITS | Encounter Summary ---
Author Organization [facility] Address [facility] [place] [address] Care Team Providers Care Skin Care Consultant Name Role Phone Unavailable Primary Care Provider Unavailabl e Reason for Visit * Reason Comments Establish Care Would like someone daria palacios works well with his nephrology and cardiology team. Would like help finding a PCP. Annual Exam XRoughly 2 weeks ago . Blood pressure being high. Pt stated all related to admission from November 2018 where pt stated lost function of a kidney Encounter Details Date Type Department Care Team (Late st Contact Info) Description 08/11/2019 3:30 PM EST Office [place] [address] Flaco Adamson MD [facility] [place] [address] Renal artery stenosis; Atypical chest pain; Lung nodule, solitary Social History Tobacco Use Types Packs/Day Years [...] Sign Reading Time Taken Comments Blood Pressure 122/86 08/11/2019 3:36 PM EST Pulse 65 08/11/2019 3:36 PM EST Temperature 36.9 ??C (98.5 ??F) 08/11/2019 3:36 PM ES T Respiratory Rate 18 08/11/2019 3:36 PM EST Oxygen Saturation 100% 08/11/2019 3:36 PM EST Inhaled Oxygen Concentration - - Weight 61.2 kg (135 lb) 08/11/2019 3:36 PM EST Height 169.4 cm (5' 6.69) 08/11/2019 3:36 PM ES T Body Mass Index 21.34 08/11/2019 3:36 PM EST documented in this encounter Progress Notes * Flaco Adamson - 08/11/2019 3:30 PM EST NEW PATIENT VISIT I. HISTORY a. Reason(s) for Visit: Moshe Castillo 58 y.o. male who presents today due to complaint(s) of: Chief Complaint Patient presents with ??? Establish Care Would like someone who works well with his nephrology and cardiology team. Would like help finding a PCP. ??? Annual Exam XRoughly 2 weeks ago. Blood pressure being high. Pt stated all related to admission from November 2018where pt stated lost function of a kidney b. History of Present Illness: Pt presents to establish care with PCP at [facility]. He was previously seen at [facility] for primary care until hospital admission in November 2018 (to hospital medicine at [facility]) when he was admitted for MUSA and found to have critical left renal artery stenosis. 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 Following diagnosis of DON, there was initially a plan for angiogram and possible intervention by vascular surgery; however, a NM scan revealed the left kidney was non-functioning so the angiogram was cancelled. Workup for embolic source (TTE, ziopatch), vasculitis (ANCAs/MPO/PR3, DELON, complement studies) was negative. He was referred to cardiology/vascular medicine and MRI angiogram of head, neck, chest, and abdomen revealed no other areas of arterial stenosis (though did show borderline ascending aorta dilation). He is planned for repeat NM scan of the kidney in August. He also had an incidental finding of a small RLL nodule on CT chest in 11/2018 and underwent follow up CT chest at OSH on 03/08/2019. After his hospitalization he was seen in December in the [facility] ED for chest pressure and palpitations and underwent CDU protocol (ruled out) and stress echocardiogram which was borderline for ischemia with 1.[address] depressions but no echocardiographic signs of ischemia. He was seen again in the ED on 07/27 with chest symptoms. He states over the month of June he was intermittently having heartburn-like sensations in his chest and radiating into his neck, sometimes lasting an entire afternoon. He would check BP after symptom onset and find that it was higher than usual (e.g. 145/95). These symptoms were all non-exertional and not associated with diaphoresis, nausea, or dyspnea. He never had any chest symptom he would describe as pain. Then on 07/27 he was athome and was planning to go for a run but checked BP at home and it was 160/100 so he decided not to run and instead remained sitting at home. He had an intense rushing sensation over his chest and head, as well as some chest discomfort similar to during prior episodes. These symptoms lasted 3 minutes and then resolved, but because they were very different from baseline he presented to ED where EKG was reportedly WNL and troponin negative. He has had no further chest symptoms since then. He is very active throughout his life and enjoys exercise such as running and basketball. Yesterdaywas his first time playing a full game of full-court basketball (~45 minutes) since his hospitalization, and he tolerated it well without any chest symptoms. Otherwise he has no significant past medical history and no other concerns today. c. Review of Systems: Constitutional - no fevers, chills, fatigue Cardiovascular - See HPI Respiratory - No SOB, HONG, cough Gastrointestinal - No abdominal pain, nausea Musculoskeletal - No weakness, pain at rest or with movement All other systems negative d. [facility] Patient Active Problem List Diagnosis ??? Chest pain ??? Flank pain ??? Elevated serum creatinine ??? Renal artery stenosis ??? Nevus ??? Family history of malignant melanoma Soc: Social History Tobacco Use ??? Smoking status: Never Smoker ??? Smokeless tobacco: Never Used Substance Use Topics ??? Alcohol use: Yes Alcohol/week: 14.0 standard drinks Types: 14 Cans of beer per week Frequency: 4 or more times a week Drinks per session: 1 or 2 II. PHYSICAL EXAM: BP 122/86 (BP Location (NBP): Right arm, Patient Position: Sitting, BP Cuff Sizes: Adult (25-34 cm)) Pulse 65 Temp 36.9 ??C (98.5 ??F) (Oral) Resp 18 Ht 169.4 cm (5' 6.69) Wt 61.2 kg (135 lb) SpO2 100% BMI 21.34 kg/m?? General - No acute distress, conversing without difficulty. ENT - oropharynx without lesions. Eyes - EOMI. No scleral icterus Neck - No JVD or bruits. Lungs - Clear to auscultation and percussion. Heart - RRR, S1,S2, no murmur, gallop or rub. Abdomen/GI - Soft, nontender, normal active bowel sounds, neg hsm or masses. Extremities - No clubbing, cyanosis or edema. Pulses intact. III. ASSESSMENT/PLAN:Moshe Castillo 58 y.o. male presenting to establish care and discuss recent episodes of chest discomfort. #Atypical chest pain Overall I believe it is very unlikely that these episodes represent cardiac ischemia given they arenon-exertional and atypical in nature and given his excellent exercise tolerance outside of these episodes. He did have stress TTE that was borderline for ischemia. Differential includes esophageal etiology such as GERD vs. Panic attacks. 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 By my read was decreased in size on follow up CT in 03/2019. Appearsradiology was not aware of this follow up imaging, again recommended follow up CT on read of MRI chest in 06/2019, which is scheduled for 08/2019. - Will order 2nd read of OSH CT chest from March - If no indication for further imaging, will cancel CT chest in 08/2019 #HCM - Flu vaccine today - Pt to check with local pharmacy on availability of Shingrix Follow up for annual with new PCP in 6 months Flaco Adamson MD PGY-3, Internal Medicine Meds reconciled * Aydin Adler MD - 08/11/2019 3:30 PM EST The case was discussed at the time of the visit or immediately after the visit. The assessment and plan were formulated in discussion with me and I agree with them as documented. I have reviewed the history, physical exam, assessment and plan with the resident. Major issues discussed today: Moshe Castillo, 58 yo M, presenting to access clinic to establish care. [place] [facility] [place] [facility] he is seeing cardiology and nephrology here. He was recently diagnosed with severe left renal artery stenosis after presenting with left flank pain with unrevealing inflammatory / vasculitis workup. 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 He has had multiple ED visits (most recently 07/27/19) for chest pain and palpitations with workup for ACS including a stress echocardiogram on 12/19/18 which reported borderline EKG findings but no segmental wall motion abnormalities. He remains active as above noted and just yesterday enjoyed a 45 min game of basketball with nochest discomfort. His symptoms are not consistently at night time or post-prandial. He has not measured his pulse during one of these episodes. Currently he feels well with ROS as noted in Dr Adamson's note. Most Recent Vitals: 08/11/19 1536 BP: 122/86 Pulse: 65 Resp: 18 Temp: 36.9 ??C (98.5 ??F) SpO2: 100% CV: Regular, no M/R/G, no carotid bruits Pulm: CTAB Plan: Obtain records from prior PCP in [facility] Dr Adamson will cc cardiology in review of syndrome of palpitations, hypertension and chest discomfort that have happened periodically over past summer. Differential in this context includes GERD,panic attack (should be considered a diagnosis of exclusion), and or pheochromocytoma. Establish care with one of our interns. Aydin Adler MD documented in this encounter Plan of Treatment Upcoming Encounters Date Type Department Care Team (Late st Contact Info) Description 06/16/2024 4:00 PM EDT Office Visit Nephrology [place] [address] Betzaida Cope APRN [facility] [place] [address] 06/23/2024 2:00 PM EDT Appointment Non-Invasive Cardiology Lab [facility] [place] [address] Owen Correia MD [facility] [place] [address] documented as of this encounter Results * Request For 2nd Read CT Chest (08/12/2019 9:23 AM EST) Anatomical Region Laterality Modality Chest SO Impressions 08/14/2019 3:11 PM EST 1. ??Interval decrease in size of the subpleural right lower lobe subpleural nodule. The decreased size, linear shape and overlying rib fracture deformity all support this finding as benign scarring. No further follow-up CT recommended. 2. ??No new nodules or adenopathy. I have personally reviewed the image(s) and the resident's interpretation and agree with the findings, Raffaele Baker at 08/14/2019 3:11 PM Thank you for letting us participate in the care of this patient. For questions regarding this report, please contact the number below. ? Narrative 08/14/2019 3:11 PM EST EXAMINATION: REQUEST FOR 2ND READ CT CHEST CLINICAL HISTORY: Pt with incidental RLL lung nodule seen 11/2018, follow up CT obtained at OSH 03/08/2019; Is this lung nodule suspicious for malignancy and should it be followed with additional imaging?; What Modality is the exam? CT Scan; Body Part (please add comments as necessary): chest; I believe a reinterpretation of this exam may alter care of Patient. Yes TECHNIQUE: Outside hospital CT of the chest without contrast performed at [facility] on 03/14/2019 at 10:44 AM. Reinterpretation requested by the ordering provider, Dr. Aydin Adler. COMPARISON: 11/24/2018 CT chest FINDINGS: Pulmonary parenchyma: Decreased size of subcentimeter subpleural linear nodule within the right lower lobe with adjacent haziness and architectural distortion are compatible with focal fibrosis, likely related to underlying remote rib fracture deformity. No consolidative process. Airways: No significant findings. Pleura: No pleural effusion or pneumothorax. Lymph nodes: No thoracic adenopathy. Heart, pericardium, and great vessels: Normal heart size. No pericardial effusion. Nonaneurysmal ascending thoracic aorta. Mild LAD and circumflex coronary artery calcifications. Other mediastinal structures: No significant findings. Upper abdomen: LEFT renal atrophy. Body wall soft tissues: No significant findings. Skeletal structures: Remote rib fracture deformities of the posterolateral right ninth and 10th ribs. Procedure Note Raffaele Baker MD - 08/14/2019 EXAMINATION: REQUEST FOR 2ND READ CT CHEST CLINICAL HISTORY: Pt with incidental RLL lung nodule seen 11/2018, followup CT obtained at OSH 03/08/2019; Is this lung nodule suspicious for malignancyand should it be followed with additional imaging?; What Modality is the exam?CT Scan; Body Part (please add comments as necessary): chest; I believe a reinterpretation of this exam may alter care of Patient. Yes TECHNIQUE: Outside hospital CT of the chest without contrast performed at [facility] on 03/14/2019 at 10:44 AM. Reinterpretation requested bythe ordering provider, Dr. Aydin Adler. COMPARISON: 11/24/2018 CT chest FINDINGS: Pulmonary parenchyma: Decreased size of subcentimeter subpleural linearnodule within the right lower lobe with adjacent haziness and architecturaldistortion are compatible with focal fibrosis, likely related to underlying remoterib fracture deformity. No consolidative process. Airways: No significant findings. Pleura: No pleural effusion or pneumothorax. Lymph nodes: No thoracic adenopathy. Heart, pericardium, and great vessels: Normal heart size. No pericardial effusion. Nonaneurysmal ascending thoracic aorta. Mild LAD andcircumflex coronary artery calcifications. Other mediastinal structures: No significant findings. Upper abdomen: LEFT renal atrophy. Body wall soft tissues: No significant findings. Skeletal structures: Remote rib fracture deformities of the posterolateralright ninth and 10th ribs. IMPRESSION 1. Interval decrease in size of the subpleural right lower lobesubpleural nodule. The decreased size, linear shape and overlying rib fracturedeformity all support this finding as benign scarring. No further follow-up CT recommended. 2. No new nodules or adenopathy. I have personally reviewed the image(s) and the resident's interpretationand agree with the findings, Raffaele Baker at 08/14/2019 3:11 PM Thank you for letting us participate in the care of this patient. Forquestions regarding this report, please contact the number below. Aydin Adler MD IMG OUTSIDE INTERPRE TATION ORDERABLES documented in this encounter Visit Diagnoses Diagnosis Renal artery stenosis Atherosclerosis of renal artery Atypical chest pain Other chest pain Lung nodule, solitary Solitary pulmonary nodule Lung nodule, solitary Solitary pulmonary nodule documented in this encounter
--- OUTSIDE RECORDS SUMMARY | 2024-06-09 02:55 | XMS_ITS | Encounter Summary ---
Author Organization [facility] [place] [address] Care Team Providers Care Collator Hand Name Role Phone Unavailable Primary Care Provider Unavailabl e Encounter Details Date Type Department Care Team (Latest Contact Info) Description 08/12/2019 9:30 AM EST Ancillary Procedure Radiology Library at [facility] [place] [phone] Aydin Adler MD [facility] [address] Lung nodule, solitary Social History Tobacco Use [...] PM EDT Office Visit [place]ph[place] [address] Betzaida Cope APRN [facility] [place] [address] 06/23/2024 2:00 PM EDT Appointment Non-Invasive [place] [address] Owen Correia MD [facility] [place] [address] documented as of this encounter Procedures Procedure Name Priority Date/Time Associated Diagnosis Comments REQUEST FOR 2ND READ CT CHEST Routine 08/12/2019 9:23 AM EST Lung nodule, solitary documented in this encounter Results * Request For 2nd [...] of the chest without contrast performed at [facility] on 03/14/2019 at 10:44 AM. Reinterpretation requested [...] of the chest without contrast performed at [facility] on 03/14/2019 at 10:44 AM. Reinterpretation requested [...] this report, please contact the number below. Electronically signed by: Raffaele Baker [facility]([phone]), at 08/14/2019 3:11 PM Aydin Adler MD IMG OUTSIDE INTERPRE TATION ORDERABLES documented in this encounter Visit Diagnoses Diagnosis Lung nodule, solitary Solitary pulmonary nodule documented in this encounter
--- OUTSIDE RECORDS SUMMARY | 2024-06-09 02:55 | XMS_ITS | Encounter Summary ---
[place] [address] Care Team Providers Care Animal Behaviourist Name Role Phone Luther Garrison DO Primary Care Provider [phone] Encounter Details Date Type Department Care Team (Late st Contact Info) Description 07/07/2019 Telephone [place] [address] Mariposa Stokes Social History Tobacco Use Types Packs/Day Years [...] PM EDT Office Visit [place] [address] Betzaida Cope APRN [facility] [place] [address] 06/23/2024 2:00 PM EDT Appointment Non[place] [address] Owen Correia MD [facility] [place] [address] documented as of this encounter Visit Diagnoses Not on filedocumented in this encounter Care Teams Animal Behaviourist Relationship Specialty Start Date End Date Luther Garrison DO [facility] [place] [address] PCP - General General Internal Medicine 09/01/1902/05 documented as of this encounter
--- OUTSIDE RECORDS SUMMARY | 2024-06-09 02:55 | XMS_ITS | Encounter Summary ---
Author Organization [facility] [place] [address] Care Team Providers Care Armored Car Messenger Name Role Phone Rohit Anderson MD Primary Care Provider [phone] Reason for Referral * Diagnostic Test (Routine) - Closed Specialty Diagnoses / Procedures Referred By Contac t Referred To Contact Radiology Diagnoses Left renal artery stenosis Procedures MRI Angiogram Chest wwo Contrast MRI Angiogram Chest Abdomen wwo Contrast Mri Angiogram Chest and Abdomen W Contrast (aka MRA) Geovani Phan MD [facility] [place] [address] [place] [address] Referral ID Status Reason Start Date Expiration Date V isits Requested Visits Authorized [id number] Closed Specialty Service Requested 05/29/2019 07/27/2019 1 1 * Diagnostic Test (Routine) - Specialty Diagnoses / Procedures Referred By Contac t Referred To Contact Radiology Diagnoses Left renal artery stenosis Procedures MRI Angiogram Head wo Contrast (Generic) MRI Angiogram Head wwo Contrast Geovani Phan MD [facility] [place] [address] [place] [address] Referral ID Status Reason Start Date Expiration Date Visits Requested Visits Authorized [id number] Specialty Service Requested 05/29/2019 07/27/2019 1 1 * Diagnostic Test (Routine) - Closed Specialty Diagnoses / Procedures Referred By Contac t Referred To Contact Radiology Diagnoses Left renal artery stenosis Procedures MRI Angiogram Neck wwo Contrast (Generic) Geovani Phan MD [facility] [place] [address] [facility] [place] [address] Referral ID Status Reason Start Date Expiration Date V isits Requested Visits Authorized [id number] Closed Specialty Service Requested 05/29/2019 07/27/2019 1 1 Reason for Visit * Reason Comments Renal Artery Stenosis Follow-up Encounter Details Date Type Department Care Team (Late st Contact Info) Description 04/03/2019 11:20 AM EDT Office Visit Cardiology at [address] [address] Geovani Phan MD [facility] DR [place], [place] [id number] Left renal artery stenosis; Hypertension secondary to other renal disorders Social History Tobacco Use Types Packs/Day Years [...] Sign Reading Time Taken Comments Blood Pressure 124/87 04/03/2019 11:21 AM EDT Pulse 55 04/03/2019 11:21 AM EDT Temperature - - Respiratory Rate - - Oxygen Saturation 100% 04/03/2019 11:21 AM EDT Inhaled Oxygen Concentration - - Weight 60.8 kg (134 lb) 04/03/2019 11:21 AM EDT Height 170.2 cm (5' 7) 04/03/2019 11:21 AM EDT Body Mass Index 20.99 04/03/2019 11:21 AM EDT documented in this encounter Progress Notes * Geovani Phan MD - 04/03/2019 11:20 AM EDT Images from the original note were not included. [facility] [place] [address] CARDIOVASCULAR MEDICINE OUTPATIENT CONSULTATION Moshe Castillo [id number] 04/03/2019 REFERRING PROVIDER: Rohit Anderson CHIEF COMPLAINT: Chief Complaint Patient presents with ??? Renal Artery Stenosis ??? Follow-up PROBLEM LIST Patient Active Problem List Diagnosis ??? Chest pain ??? Flank pain ??? Elevated serum creatinine ??? Renal artery stenosis ??? Nevus ??? Family history of malignant melanoma HISTORY OF PRESENT ILLNESS: Mr. Castillo is a very pleasant 58 year old man who was admitted to [facility] Medicine service from 11/26-12/01/18 because of bloating and left flank pain, a few days after being diagnosed with PNA, treated with steroids and antibiotics. Initial work-up showed acute renal failure and hypertension in the setting of severe left renal artery stenosis, complicated by left renal infarct. He has been anticoagulated, and recently switched to apixaban. Work-up has been negative with TTE, DELON/ANCA, ziopatch without atrial arrhythmia. He has undergone renal study, wich showed nonfunctioning left kidney. His hypertension has been treated with lisinopril and verapamil. He was seen by Dr. Huffman on 01/20/19 and Ziopatch was applied at that time, which has since returned negative. Since that visit, he has been feeling reasonably well without any chest pain, shortness of breath, palpitations, CHF symptoms, pre-syncope, syncope, claudication, or symptoms of TIA/stroke. He has not had recurrent pain. Of note, he has not had pain like this flank pain in the past. No family history of similar issues. No personal h istory of VTE. REVIEW OF SYSTEMS: All others negative except as stated in the HPI. PAST MEDICAL HISTORY: No past medical history on file. SOCIAL HISTORY: Social History Tobacco Use ??? Smoking status: Never Smoker ??? Smokeless tobacco: Never Used Substance Use Topics ??? Alcohol use: Yes Alcohol/week: 8.4 oz Types: 14 Cans of beer per week Frequency: 4 or more times a week Drinks per session: 1 or 2 MEDICATIONS: Current Outpatient Medications Medication Sig Dispense Refill ??? ELIQUIS 5 mg Tablet Take 5 mg by mouth 2 times daily. 0 ??? verapamil (CALAN-SR) 180 mg Tablet Sustained Release take 1 tablet by mouth once daily 0 ??? lisinopril (PRINIVIL;ZESTRIL) 10 mg Tablet take 1 tablet by mouth once daily 0 No current facility-administered medications for this visit. ALLERGIES: Amlodipine and Pseudafen [pseudoephedrine hcl] PHYSICAL EXAMINATION: Vital Signs: BP 124/87 Pulse 55 Ht 170.2 cm (5' 7) Wt 60.8 kg (134 lb) SpO2 100% BMI 20.99 kg/m?? Exam Details: General: Pleasant 58 y.o. man in no acute distress Eyes: No scleral icterus ENT: Moist mucous membranes Lymph: No cervical or supraclavicular lymphadenopathy Heart: Regular rate and rhythm, normal S1/S2, no murmurs/rubs/gallops appreciated, PMI non-displaced Lungs: Clear to ascultation bilaterally Abdomen: Soft, non-tender, non-distended, normoactive bowel sounds noted. No hepatosplenomegaly Extremities: No peripheral edema noted. No ulcerations noted. Vessels: No carotid bruits appreciated. Neuro: No gross abnormalities noted Psych: Alert and oriented 3 x, normal affect DATA PERSONALLY REVIEWED: Last 3 wbc, hgb, hct plt Recent Labs 12/18/18 1900 12/01/18 0600 11/30/18 0456 WBC 4.4 8.2 10.9* HGB 14.5 11.3* 11.4* HCT 43.0 33.8* 33.0* PLATELET 243 124* 104* Last 3 Lytes Recent Labs 02/14/19 1529 12/18/18 1900 12/01/18 0600 NA 142 140 140 K 4.5 4.2 3.8 CL 102 99 104 CO2 28 28 25 BUN 20 14 14 CREATININE 1.53* 1.53* 1.30 1.32 EKG 12/19/18: NSR 61 bpm, non-specific ST-T wave abnormality Stress TTE 12/19/18: 1. BASELINE ECHO: There is normal global left ventricular systolic function. Ejection fraction is estimated to be 65%. There [...] echo images. Borderline positive ECG for ischemia. Ziopatch 01/20/19: Conclusion: This monitor study was remarkable for sinus rhythm. Infrequent nonsustained supraventricular tachycardia runs (without any atrial flutter/fibrillation) and a low overall burden of ectopy were detected. MRA abdomen 11/28/18: IMPRESSION 1. Critical stenosis at the origin of the left renal artery, with segmental areas of decreased perfusion/nonenhancement predominantly involving the mid to upper pole as well as wedge-shaped segmental focus in the lower pole representing renal infarcts. 2. Small to moderate ascites. Renal artery duplex 11/27/18: Right: Patent main renal artery with no evidence of hemodynamically significant stenosis. Left: There is no identifiable flow by duplex in what is suspected to be the main renal artery; suspect occlusion. No arterial flow identified within the kidney. Patent renal vein. ASSESSMENT AND PLAN: #1 Left renal artery stenosis # 2 Hypertension Mr. Castillo is a 58 year old man with no significant past medical history who was recently diagnosed with left renal artery stenosis with renal infarct and hypertension who presents for follow-up. So far, work-up of renal infarct has been negative with no evidence of vasculitis or cardioembolism, or PFO. We discussed additional possibilities including non-inflammatory non- atherosclerotic entities such as FMD or segmental arterial mediolysis (BELLA); or genetic vascular abnormalities (Kristen-Danlos,etc). Hypercoagulable disorder less likely but also on differential. Given age and gender, BELLA is more likely. I think it is important to evaluate the whole vasculature to evaluate for other prior dissections or aneurysms. Given elevated Cr, MRA is more favorable than CTA. In terms of treatment, I think it is reasonable to complete 6 months of AC and then to switch to ASA 81 mg daily. We discussed about future risk of events and it is hard to know at this point what the exact risk is but also that there's no specific medication to reduce the risk. Plan: 1. MRA brain/neck/chest/abdomen/pelvis in 2 months (6 months from initial event) to evaluate vasculature. 2. Consider switching apixaban to ASA 81 mg daily in 2 months (6 months of treatment). 3. Return to clinic after MRA. 4. Can return to moderate exercise activity, including basketball, although discussed about trying to make it as low contact as possible. Thank you for allowing me to participate in the care of your patient. Please do not hesitate to contact me with any questions or concerns. Geovani Phan MD, MPH, [facility] Contact [place] [address] documented in this encounter Plan of Treatment Upcoming Encounters Date Type Department Care Team (Late st Contact Info) Description 06/16/2024 4:00 PM EDT Office Visit [place] [address] Betzaida Cope APRN [facility] [place] [address] 06/23/2024 2:00 PM EDT Appointment Non[place] [address] Owen Correia MD [facility] [place] [address] documented as of this encounter Results * (ABNORMAL) MRI Angiogram [...] Finding Geovani Phan MD IMG MRI ORDERABLES * MRI Angiogram Head wo Contrast (Generic) (06/05/2019 3:50 PM EDT) Anatomical Region Laterality Modality Head Magnetic Resonan ce Impressions 06/05/2019 9:25 PM EDT MRA head: Negative exam MRA NECK: Negative exam Thank you for letting us participate in the care of this patient. For questions regarding this report, please contact the number below. ? Narrative 06/05/2019 9:25 PM EDT EXAMINATION: MRI ANGIOGRAM HEAD WO CONTRAST (GENERIC), MRI ANGIOGRAM NECK WWO CONTRAST (GENERIC) CLINICAL HISTORY: history of left renal artery thrombus, ?brain aneurysms or prior dissection TECHNIQUE: MRA of the head performed without contrast. 3-D MIP reconstructions were created. MRA neck without with gadolinium. 12 cc dotarem COMPARISON: None FINDINGS: MRA head: Normal appearance of the intracranial portion of the vertebrobasilar system and posterior circulation branches. Normal appearance of the intracranial portion of the internal carotid arteries and anterior circulation branches. No focal stenosis caliber change or aneurysm. MRA NECK: Normal appearance of the three-vessel arch and great vessels. There is normal appearance of the vertebral artery origins. Cervical vertebral arteries are normal in caliber. Right carotid: Normal appearance right cervical common and internal carotid artery. Left carotid: Normal appearance cervical left common and internal carotid artery. Procedure Note Aydin Cheng MD - 06/05/2019 EXAMINATION: MRI ANGIOGRAM HEAD WO CONTRAST (GENERIC), MRI ANGIOGRAM NECKWWO CONTRAST (GENERIC) CLINICAL HISTORY: history of left renal artery thrombus, ?brain aneurysmsor prior dissection TECHNIQUE: MRA of the head performed without contrast. 3-D MIP reconstructions were created. MRA neck without with gadolinium. 12 cc dotarem COMPARISON: None FINDINGS: MRA head: Normal appearance of the intracranial portion of thevertebrobasilar system and posterior circulation branches. Normal appearance of the intracranial portion of the internal carotidarteries and anterior circulation branches. No focal stenosis caliber change oraneurysm. MRA NECK: Normal appearance of the three-vessel arch and great vessels.There is normal appearance of the vertebral artery origins. Cervical vertebralarteries are normal in caliber. Right carotid: Normal appearance right cervical common and internalcarotid artery. Left carotid: Normal appearance cervical left common and internalcarotid artery. IMPRESSION MRA head: Negative exam MRA NECK: Negative exam Thank you for letting us participate in the care of this patient. Forquestions regarding this report, please contact the number below. Geovani Phan MD IM MRI ORDERABLES * MRI Angiogram Neck wwo Contrast (Generic) (06/05/2019 3:50 PM EDT) Anatomical Region Laterality Modality Neck Magnetic Resonan ce Impressions 06/05/2019 9:25 PM EDT MRA head: Negative exam MRA NECK: Negative exam Thank you for letting us participate in the care of this patient. For questions regarding this report, please contact the number below. ? Narrative 06/05/2019 9:25 PM EDT EXAMINATION: MRI ANGIOGRAM HEAD WO CONTRAST (GENERIC), MRI ANGIOGRAM NECK WWO CONTRAST (GENERIC) CLINICAL HISTORY: history of left renal artery thrombus, ?brain aneurysms or prior dissection TECHNIQUE: MRA of the head performed without contrast. 3-D MIP reconstructions were created. MRA neck without with gadolinium. 12 cc dotarem COMPARISON: None FINDINGS: MRA head: Normal appearance of the intracranial portion of the vertebrobasilar system and posterior circulation branches. Normal appearance of the intracranial portion of the internal carotid arteries and anterior circulation branches. No focal stenosis caliber change or aneurysm. MRA NECK: Normal appearance of the three-vessel arch and great vessels. There is normal appearance of the vertebral artery origins. Cervical vertebral arteries are normal in caliber. Right carotid: Normal appearance right cervical common and internal carotid artery. Left carotid: Normal appearance cervical left common and internal carotid artery. Procedure Note Aydin Cheng MD - 06/05/2019 EXAMINATION: MRI ANGIOGRAM HEAD WO CONTRAST (GENERIC), MRI ANGIOGRAM NECKWWO CONTRAST (GENERIC) CLINICAL HISTORY: history of left renal artery thrombus, ?brain aneurysmsor prior dissection TECHNIQUE: MRA of the head performed without contrast. 3-D MIP reconstructions were created. MRA neck without with gadolinium. 12 cc dotarem COMPARISON: None FINDINGS: MRA head: Normal appearance of the intracranial portion of thevertebrobasilar system and posterior circulation branches. Normal appearance of the intracranial portion of the internal carotidarteries and anterior circulation branches. No focal stenosis caliber change oraneurysm. MRA NECK: Normal appearance of the three-vessel arch and great vessels.There is normal appearance of the vertebral artery origins. Cervical vertebralarteries are normal in caliber. Right carotid: Normal appearance right cervical common and internalcarotid artery. Left carotid: Normal appearance cervical left common and internalcarotid artery. IMPRESSION MRA head: Negative exam MRA NECK: Negative exam Thank you for letting us participate in the care of this patient. Forquestions regarding this report, please contact the number below. Geovani Phan MD IMG MRI ORDERABLES documented in this encounter Visit Diagnoses Diagnosis Left renal artery stenosis Atherosclerosis of renal artery Hypertension secondary to other renal disorders Left renal artery stenosis Atherosclerosis of renal artery Left renal artery stenosis Atherosclerosis of renal artery documented in this encounter Care Teams Armored Car Messenger Relationship Specialty Start Date End Date Rohit Anderson MD [address] [place] [address] PCP - General General Internal Medicine 12/18/18 documented as of this encounter
--- OUTSIDE RECORDS SUMMARY | 2024-06-09 02:55 | XMS_ITS | Encounter Summary ---
Author Organization [facility] [place] [address] Care Team Providers Care Engine Specialist Name Role Phone Luther Garrison DO Primary Care Provider [phone] Reason for Visit * Reason Comments Medication Refill Encounter Details Date Type Department Care Team (Late st Contact Info) Description 10/28/2019 Refill Cardiology at [address] [phone] Geovani Phan MD [facility] [place] [address] Medication Refill Social History Tobacco Use Types [...] PM EDT Office Visit Nephrology [place] [phone] Betzaida Cope APRN [facility] [place] [address] 06/23/2024 2:00 PM EDT Appointment Non-[place] [address] Owen Correia MD [facility] [place] [address] documented as of this encounter Visit Diagnoses Diagnosis Atypical chest pain- Primary Other chest pain documented in this encounter Care Teams Engine Specialist Relationship Specialty Start Date End Date Luther Garrison DO [facility] [address] PCP - General General Internal Medicine 09/01/1902/05 documented as of this encounter
--- OUTSIDE RECORDS SUMMARY | 2024-06-09 02:55 | XMS_ITS | Encounter Summary ---
Author Organization [facility] [place] [address] Care Team Providers Care Oracle Database Analyst Name Role Phone Luther Garrison DO Primary Care Provider [phone] Reason for Visit * Reason Comments Establish Care annual, update histo ry, failed kidney Encounter Details Date Type Department Care Team (Late st Contact Info) Description 02/22/2020 8:30 AM EDT Office [place] [address] Luther Garrison, [facility] GENER[facility] [place] [address] Special screening for malignant neoplasms, colon; Tick bite of thoracic region, initial encounter; Pain in left wrist; Healthcare maintenance Social History Tobacco Use Types [...] Sign Reading Time Taken Comments Blood Pressure 124/86 02/22/2020 8:45 AM EDT Pulse 68 02/22/2020 8:45 AM EDT Temperature 36.9 ??C (98.5 ??F) 02/22/2020 8:45 AM ED T Respiratory Rate 16 02/22/2020 8:45 AM EDT Oxygen Saturation 100% 02/22/2020 8:45 AM EDT Inhaled Oxygen Concentration - - Weight 61.2 kg (135 lb) 02/22/2020 8:45 AM EDT Height 169.7 cm (5' 6.83) 02/22/2020 8:45 AM ED T Body Mass Index 21.25 02/22/2020 8:45 AM EDT documented in this encounter Progress Notes * Lutehr Garrison, DO - 02/22/2020 8:30 AM EDT Patient ID: Moshe Castillo is a 59 y.o. male with a PMH of renal artery stenosis of the left kidney (nonfunctioning), HTN and thoracic dilatation of 4.1cm. Chief Complaint Patient presents with ??? Establish Care annual, update history, failed kidney Subjective: HPI Moshe Castillo presents today in the clinic for establish of care and current follow up for his nephrology and cardiac issues. The patient states that they have been doing very well since his last visit to the clinic 6 months ago. He states that he recently completed a 24 hour ambulatory BP monitoring. He doesn't have the report wih him however nephrology saw it and he states that the average BP was below 120. States that overall he is feeling very well regarding everything and would like to potentially explore possibility of stopping the verapamil if possible. He has 2 issues to discuss. He mentions that his left hand sometimes gets a sharp pain in dorsal aspect of the wrist with flexion or extension. He states there is no numbness and tingling or loss of strength associated with this or any loss of range of motion. He states that this is been going on for 4 to 6 weeks. He also mentions that this originally occurred in his right hand as well but that only lasted for 2 weeks and is now better. When asked about use of the hand, he mentions that he likes to do pull-ups and push-ups for exercise and that he plays the guitar daily and holds the neck of the guitar in a flexed position with a hand. Additionally, he mentions he has got a couple tick bites the past couple weeks. The last 1 was 4 days ago and the tick was located in his skin for 48 hours before he pulled it out. He states that that has a tick remain embedded in the skin. He has noticed no rash nor had any fevers or chills or other symptoms of Lyme disease. He states that the bite just itches at this point. Current Medications ??? lisinopriL (Prinivil;Zestril) 10 mg Tablet ??? verapamil SR (Calan-SR) 180 mg Tablet Sustained Release ??? aspirin EC 81 mg Tablet, Delayed Release (E.C.) Social History Tobacco Use ??? Smoking status: Never Smoker ??? Smokeless tobacco: Never Used Substance Use Topics ??? Alcohol use: Yes Alcohol/week: 7.0 standard drinks Types: 7 Cans of beer per week Frequency: 4 or more times a week Drinks per session: 1 or 2 ??? Drug use: Never Past Medical History: Diagnosis Date ??? 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 HTN (hypertension) ??? Renal artery stenosis left renal artery has no past surgical history on file. Family History Problem Relation Age of Onset ??? Myocardial Infarction Father 52 Health Maintenance Summary Colonoscopy Overdue 2010 Zoster vaccine Overdue 2010 Tdap adult Overdue 1979 Tetanus vaccine Overdue 1979 HIV screen Postponed 02/21/2021 Originally 1978. Patient Declined Lipid Screening Next Due 11/28/2023 Done 11/27/2018 HDL/CHOL PROFILE Chol, Total Hepatitis C Screening This plan is no longer active. Done 11/28/2018 HEPATITIS C ANTIBODY Hepatitis C Ab Patient has more history with this topic... Influenza (Flu) vaccine This plan is no longer active. Done 08/11/2019 Imm Admin: Influenza Vaccine PF, Quadrivalent Review of Systems Constitutional: Negative for chills and fever. Respiratory: Negative for cough and shortness of breath. Musculoskeletal: Negative for arthralgias, joint swelling and myalgias. Skin: Negative for color change and rash. Neurological: Negative for headaches. Objective: BP 124/86 (BP Location (NBP): Left arm, Patient Position: Sitting, BP Cuff Sizes: Adult (25-34 cm)) Pulse 68 Temp 36.9 ??C (98.5 ??F) (Oral) Resp 16 Ht 169.7 cm (5' 6.83) Wt 61.2 kg (135 lb) SpO2 100% BMI 21.25 kg/m?? Patient reported measures: Pain: Physical Health: Fall: No flowsheet data found. Wt Readings from Last 3 Encounters: 02/22/20 61.2 kg (135 lb) 01/03/20 60.8 kg (134 lb) 01/02/20 60.8 kg (134 lb) Physical Exam Vitals signs reviewed. Constitutional: Appearance: Normal appearance. He is normal weight. HENT: Head: Normocephalic and atraumatic. Eyes: Extraocular Movements: Extraocular movements intact. Conjunctiva/sclera: Conjunctivae normal. Cardiovascular: Rate and Rhythm: Normal rate. Pulses: Normal pulses. Pulmonary: Effort: Pulmonary effort is normal. Breath sounds: Normal breath sounds. Skin: General: Skin is warm and dry. Capillary Refill: Capillary refill takes less than 2 seconds. Findings: Lesion (welt on left leg, improving) present. No erythema or rash. Neurological: General: No focal deficit present. Mental Status: He is alert and oriented to person, place, and time. Mental status is at baseline. Psychiatric: Mood and Affect: Mood normal. Behavior: Behavior normal. Thought Content: Thought content normal. Judgment: Judgment normal. Assessment and Plan: #left renal artery stenosis #HTN #ascending thoracic dilatation -Advised that his blood pressures been doing well so he should stay on the verapamil since he only has 1 functioning kidney left. Patient understood and agreed. #Tick bite -Advised to monitor for symptoms but this time he is outside the prophylaxis window for Lyme however if he developed any symptoms of Lyme disease to let the office know and we would prescribe doxycycline treatment empirically -Advised that the end of the tick can remain embedded for several weeks to several months and they can use hydrocortisone cream for itching otherwise it will work itself out #Wrist pain The pain itself seems most likely due to an overuse of the wrist. It is not constant and is instigated with flexion and extension when he is doing activities at home. No numbness or tingling, unlikely to be carpal tunnel or fracture. -Advised heat or ice packs -Tylenol as needed -Wrist splint at night - Respite from playing guitar or push ups for the next two weeks -If no improvement over the next couple weeks we will get x-ray of the wrist #Health maintenance -We will get records of colonoscopy from outside hospital -Tdap -Shingrix * Jaz Benavides MD - 02/22/2020 8:30 AM EDT The case was discussed at the time of the visit or immediately after the visit. The assessment and plan were formulated in discussion with me and I agree with them as documented. I have reviewed the history, physical exam, assessment and plan with the resident. 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 Nonsmoker, 1 alcoholic beverage/day Fh father with mI PE: See Dr Garrison's note for details of the exam Plan: Probable overuse injury for his wrists->rest wrist, splint at night Educated re: lyme disease Continue current antihypertensive Immunizations and colo documented in this encounter Plan of Treatment Upcoming Encounters Date Type Department Care Team (Late st Contact Info) Description 06/16/2024 4:00 PM EDT Office Visit Neph[place] [phone] Betzaida Cope APRN [facility] [place] [address] 06/23/2024 2:00 PM EDT Appointment Non-Invasive [place] [phone] Owen Correia MD [facility] [place] [address] documented as of this encounter Visit Diagnoses Diagnosis Special screening for malignant neoplasms, colon Tick bite of thoracic region, initial encounter Pain in left wrist Pain in joint, forearm Healthcare maintenance Routine general medical examination at a health care facility documented in this encounter Care Teams Oracle Database Analyst Relationship Specialty Start Date End Date Luther Garrison DO [facility] GENER[facility] [place] [address] PCP - General General Internal Medicine 09/01/1902/05 documented as of this encounter
--- OUTSIDE RECORDS SUMMARY | 2024-06-09 02:55 | XMS_ITS | Encounter Summary ---
[place] [address] Care Team Providers Care Resin Coater Name Role Phone Luther Garrison DO Primary Care Provider [phone] Reason for Visit * Reason Onset Date Comments Medication Refill 02/01/2020 Encounter Details Date Type Department Care Team (Late st Contact Info) Description 02/01/2020 Refill [place] [address] Elba Jesus Social History Tobacco Use Types Packs/Day Years [...] encounter Miscellaneous Notes * Telephone Encounter - Elba Jesus - 02/01/2020 12:46 PM EDT Patient will be all out of the Verapamil in two days. Please call patient once sent to the pharmacy. documented in this encounter Plan of Treatment Upcoming Encounters Date Type Department Care Team (Late st Contact Info) Description 06/16/2024 4:00 PM EDT Office Visit Nephrology [place] [phone] Betzaida Cope APRN [facility] [address] 06/23/2024 2:00 PM EDT Appointment Non-Invasive [place] [address] Owen Correia MD [facility] [address] documented as of this encounter Visit Diagnoses Not on filedocumented in this encounter Care Teams Resin Coater Relationship Specialty Start Date End Date Luther Garrison DO [facility] [place] [address] PCP - General General Internal Medicine 09/01/1902/05 documented as of this encounter
--- OUTSIDE RECORDS SUMMARY | 2024-06-09 02:55 | XMS_ITS | Encounter Summary ---
Author Organization [place] [place] [address] Care Team Providers Care Conservation Science Officer Name Role Phone Luther Garrison DO Primary Care Provider [phone] Reason for Visit * Reason Comments Follow-up endoscopy results an d a couple other things that may be related. Encounter Details Date Type Department Care Team (Late st Contact Info) Description 04/16/2020 3:00 PM EDT Office [place] [address] Luther Garrison, DO [facility] [place] [address] Constipation, unspecified constipation type Social History Tobacco Use Types Packs/Day [...] Sign Reading Time Taken Comments Blood Pressure 125/76 04/16/2020 3:07 PM EDT Pulse 57 04/16/2020 3:07 PM EDT Temperature 37.2 ??C (98.9 ??F) 04/16/2020 3 :07 PM EDT Respiratory Rate 16 04/16/2020 3:07 PM EDT Oxygen Saturation 100% 04/16/2020 3:0 7 PM EDT Inhaled Oxygen Concentration - - Weight 60.7 kg (133 lb 12.8 oz) 020 3:07 PM EDT with shoes Height - - Body Mass Index 21.06 02/22/2020 8:45 AM EDT documented in this encounter Progress Notes * Aisha Hill MD - 04/16/2020 3:00 PM EDT The case was discussed at the time of the visit or immediately after the visit. The assessment and plan were formulated in discussion with me and I agree with them as documented. I have reviewed the history, physical exam, assessment and plan with the resident. Major issues discussed today: 59 year old man with HTN, DON, recent negative colo 5 weeks ago -concerns of constipation since then and felt he needed to disimpact himself, taking preparation H even though he does not have hemorrhoids; wonders if he disrupted his microbiome and needs to restore and PE: BP 125/76 (BP Location (NBP): Right arm, Patient Position: Sitting, BP Cuff Sizes: Adult (25-34cm)) Pulse 57 Temp 37.2 ??C (98.9 ??F) (Oral) Resp 16 Wt 60.7 kg (133 lb 12.8 oz) Comment: with shoes SpO2 100% BMI 21.06 kg/m?? Plan: 1. Recent new constipation: trial probiotic, stool softener, avoid laxatives RTC orn * Luther Garrison DO - 04/16/2020 3:00 PM EDT Patient ID: Moshe Castillo is a 59 y.o. male who has a past medical history of Dilation of thoracic aorta, HTN (hypertension), and Renal artery stenosis. Chief Complaint Patient presents with ??? Follow-up endoscopy results and a couple other things that may be related. Subjective: HPI Moshe Castillo presents today in the clinic for follow-up after his colonoscopy. His colonoscopy wasclean and only showed some anal skin tags and nothing else. He is concerned because he states that he was a regular once a day stool however since the colonoscopy he experienced one day without stool, and since then near daily difficulty with strained and painful bowel movements. He states that at one point he was straining very hard and as can be seen in the messaging he sent to the municipal firefighter, he reached up and felt why it was so hard and felt some sort of bulging mass that he is concerned is not hemorrhoids due to its upward location. He denies any blood in his stools or any diarrhea. He does state that he goes at least every other day if not once in 3 days at this point. He states he has been taking some preparation H and this has improved as well. He is ultimately concernedwith the strained and painful nature of these stools. Current Medications ??? lisinopriL (Prinivil;Zestril) 10 mg Tablet ??? verapamil SR (Calan-SR) 180 mg Tablet Sustained Release ??? aspirin EC 81 mg Tablet, Delayed Release (E.C.) Review of Systems Constitutional: Negative for chills and fever. Gastrointestinal: Positive for constipation. Negative for abdominal pain, diarrhea, nausea and vomiting. Objective: BP 125/76 (BP Location (NBP): Right arm, Patient Position: Sitting, BP Cuff Sizes: Adult (25-34 cm)) Pulse 57 Temp 37.2 ??C (98.9 ??F) (Oral) Resp 16 Wt 60.7 kg (133 lb 12.8 oz) Comment: withshoes SpO2 100% BMI 21.06 kg/m?? Patient reported measures: Pain: Physical Health: Fall: No flowsheet data found. Wt Readings from Last 3 Encounters: 04/16/20 60.7 kg (133 lb 12.8 oz) 03/05/20 60.3 kg (133 lb) 02/22/20 61.2 kg (135 lb) Physical Exam Vitals signs reviewed. Constitutional: Appearance: Normal appearance. He is normal weight. HENT: Head: Normocephalic and atraumatic. Eyes: Extraocular Movements: Extraocular movements intact. Conjunctiva/sclera: Conjunctivae normal. Abdominal: General: Abdomen is flat. Bowel sounds are normal. There is no distension. Palpations: Abdomen is soft. Tenderness: There is no abdominal tenderness. Neurological: General: No focal deficit present. Mental Status: He is alert and oriented to person, place, and time. Mental status is at baseline. Psychiatric: Mood and Affect: Mood normal. Behavior: Behavior normal. Thought Content: Thought content normal. Judgment: Judgment normal. Assessment and Plan: #Constipation His change in bowel movements is probably due to the disruption of his gut micro-biome after takingthe colon prep for his colonoscopy earlier this month. I explained to the patient that probiotics could help if he is really concerned about this can take stool softeners as well or drink some prune juice to help with the movements. Also explained to the patient that it is normal to pass stool every other day and that he does not need to worry if it is not every single day. I also explained to the patient that sometimes anesthesia can cause some constipation and that there is multiple days worth of stool in his bowels so if he was constipated for some time his stool was backed up and he may still be somewhat feeling the effects to this day. I advised against trying to feel inside for the stool and stated that if he continues to get worse to let us know and we would help facilitate him seeing a municipal firefighter. Advised that there is no mass or hemorrhoids as none were seen on the colonoscopy itself. - stool softeners - prune juice as needed documented in this encounter Plan of Treatment Upcoming Encounters Date Type Department Care Team (Late st Contact Info) Description 06/16/2024 4:00 PM EDT Office Visit Neph[place] [phone] Betzaida Cope APRN [facility] [place] [address] 06/23/2024 2:00 PM EDT Appointment Non-[place]vasive [place] [address] Owen Correia MD [facility] [place] [address] documented as of this encounter Visit Diagnoses Diagnosis Constipation, unspecified constipation type documented in this encounter Care Teams Conservation Science Officer Relationship Specialty Start Date End Date Luther Garrison DO [facility] [place] [address] PCP - General General Internal Medicine 09/[birth year]02[birth year]05 documented as of this encounter
--- OUTSIDE RECORDS SUMMARY | 2024-06-09 02:55 | XMS_ITS | Encounter Summary ---
[place] [address] Care Team Providers Care Publicity Manager Name Role Phone Luther Garrison DO Primary Care Provider [phone] Encounter Details Date Type Department Care Team (Late st Contact Info) Description 07/07/2019 Telephone [place] [address] Mariposa Stokes Social History Tobacco [...] PM EDT Office Visit [place] [address] Betzaida Cope APRN [facility] [place] [address] 06/23/2024 2:00 PM EDT Appointment Non-Invasive [place] [address] Owen Correia MD [facility] [place] [address] documented as of this encounter Visit Diagnoses Not on filedocumented in this encounter Care Teams Publicity Manager Relationship Specialty Start Date End Date Luther Garrison DO [facility] [place] [address] PCP - General General Internal Medicine [birth year]02/[birth year] documented as of this encounter
--- OUTSIDE RECORDS SUMMARY | 2024-06-09 02:55 | XMS_ITS | Encounter Summary ---
Author Organization [facility] [place] [address] Care Team Providers Care Customs Investigator Name Role Phone Luther Garrison DO Primary Care Provider [phone] Reason for Visit * Reason Comments Renal Artery Stenosis Encounter Details Date Type Department Care Team (Latest Contact Info) Description 01/03/2020 2:00 PM EDT TH Visit (TeleHealth) Cardiology at [address] [address] Geovani Phan MD [facility] [place] [address] Segmental arterial mediolysis; Renal infarct; Renovascular hypertension; Ascending aortic aneurysm Social History Tobacco Use Types Packs/Day Years [...] Progress Notes * Geovani Phan MD - 01/03/2020 2:00 PM EDT CARDIOLOGY/VASCULAR MEDICINE TELE VISIT NOTE Moshe Nino Anan 01/03/20 The patient consented to this being a virtual visit. HPI: Moshe Castillo is a 59 y.o. year old male whom I met on 04/03/19 for an opinion regarding left renal artery stenosis and infract. He was admitted to [facility] medicine service from 11/26-12/01/18 due to bloating [...] be due to FMD or segmental arterial me diolysis. MRA head/neck unremarkable. MRA abdomen showed enhancement of left renal cortex on delayed postcontrast images, suggestive of critical left renal artery stenosis rather than total occlusion(this was previously seen on prior MRA although functional study showed non-functioning kidney twice). MRA chest showed no evidence of dissections; ascending thoracic aorta is 4.1 cm. I last saw him on 07/06/19; at that time, switched from apixaban to aspirin. Since then, he has been feeling quite well. Running 3 miles on a regular basis, no chest pain or shortness of breath. No abdominal pain or flank pain, PND, orthopnea, lower extremity edema, hematuria. Taking medications w/o issues. Measured BP recently, was 130s/80s. Brief ROS: Activity level: Exercises regularly No new orthopnea, PND, LE edema. No lightheadedness, dizziness, syncope/pre- syncope. No new CP. Medications: Current Outpatient Medications Medication Sig Dispense Refill ??? aspirin EC 81 mg Tablet, Delayed Release (E.C.) Take 1 tablet by mouth daily. 30 tablet 11 ??? verapamil (CALAN-SR) 180 mg Tablet Sustained Release take 1 tablet by mouth once daily 0 ??? lisinopril (PRINIVIL;ZESTRIL) 10 mg Tablet take 1 tablet by mouth once daily 0 Medications were reviewed with patient. Objective Data: VS at home: 134/83 Labs: Lab Results Component Value Date WBC 4.3 07/27/2019 HGB 14.5 07/27/2019 HCT 42.4 07/27/2019 MCV 92.6 07/27/2019 PLATELET 170 07/27/2019 No results for input(s): NA, K, CL, [...] anatomic scan 12/05/18: IMPRESSION Nonfunctioning left kidney. Renal anatomic scan 09/01/19: IMPRESSION No functioning [...] size that may raise concern for malignancy. CT chest 03/08/19: IMPRESSION 1. Interval decrease in size of the subpleural right lower lobe subpleural nodule. The decreased size, linear shape and overlying rib fracture deformity all support this finding as benign scarring. No further follow-up CT recommended. 2. No new nodules or adenopathy. ?? Assessment: #1 Left renal infarct #2 Hypertension #3 4.1 cm ascending aortic dilatation Mr. Castillo is a 59 year old man with left renal infarct and hypertension who presents for follow-up.He has been doing quite well, active, without recurrent symptoms. Whole-body imaging fairly unrevealing except 4.1 cm ascending thoracic aorta. As previously discussed, this likely occurred in the setting of segmental arterial mediolysis. Ongoing hypertension management and antiplatelet therapy 81 mg daily is mainstay of therapy. He will have 24 hour BP monitor soon. We will continue to monitor his aorta on a regular basis, otherwise no other imaging necessary. Plan 1. Continue aspirin 81 mg daily, verapamil, lisinopril. 2. MRA chest in 1 year to monitor aortic size. 3. Return to clinic in 1 year, or sooner if necessary. I spent a total of 20 minutes associated with this encounter including chart review, the patient encounter, and documentation, of which more than 50% was with direct patient contact. Geovani Phan MD, MPH, VI [facility] St[facility] HelperGrey Inspectorlabor [place] [address] documented in this encounter Plan of Treatment Upcoming Encounters Date Type Department Care Team (Late st Contact Info) Description 06/16/2024 4:00 PM EDT Office Visit Neph[place] [address] Betzaida Cope APRN [facility] [place] [address] 06/23/2024 2:00 PM EDT Appointment Non-Invasive Cardiology Lab [place] [phone] Owen Correia MD [facility] [place] [address] documented as of this encounter Visit Diagnoses Diagnosis Segmental arterial mediolysis Renal infarct Vascular disorders of kidney Renovascular hypertension Secondary renovascular hypertension, unspecified Ascending aortic aneurysm Thoracic aneurysm without mention of rupture documented in this encounter Care Teams Customs Investigator Relationship Specialty Start Date End Date Luther Garrison DO [facility] [place] [address] PCP - General General Internal Medicine 09/[birth year]/1902/05 documented as of this encounter
--- OUTSIDE RECORDS SUMMARY | 2024-06-09 02:55 | XMS_ITS | Encounter Summary ---
[place] [address] Care Team Providers Care Assembly Riveter Name Role Phone Luther Garrison DO Primary Care Provider [phone] Encounter Details Date Type Department Care Team (Late st Contact Info) Description 07/14/2019 Telephone [place] [address] Mariposa Stokes Social History Tobacco [...] PM EDT Office Visit Ne[place] [address] Betzadia Cope APRN [facility] [place] [address] 06/23/2024 2:00 PM EDT Appointment Non-Invasive [place] [address] Owen Correia MD [facility] [place] [address] documented as of this encounter Visit Diagnoses Not on filedocumented in this encounter Care Teams Assembly Riveter Relationship Specialty Start Date End Date Luther Garrison DO [facility] GENERAL [place] [address] PCP - General General Internal Medicine 09/[birth year]02[birth year]05 documented as of this encounter
--- OUTSIDE RECORDS SUMMARY | 2024-06-09 02:55 | XMS_ITS | Encounter Summary ---
Author Organization Formerly [facility] Address [facility] [place] [address] Care Team Providers Care Media Services Coordinator Name Role Phone Luther Garrison DO Primary Care Provider [phone] Reason for Visit * Auth/Cert Specialty Diagnoses / Procedures Referred By Contjanay t Referred To Contact Diagnoses Encounter for screening for malignant neoplasm of colon srceening Procedures PRO COLONOSCOPY, DIAGNOSTIC COLONOSCOPY, DIAGNOSTIC Referral ID Status Reason Start Date Expiration Date Visits Re quested Visits Authorized [id number] 1 1 Encounter Details Date Type Department Care Team (Latest Contact Info) Description 03/05/2020 12:52 PM EDT - 03/05/2020 3:11 PM EDT Hospital Encounter [place] [address] Sonny Mike MD [facility] [place] [address] Discharge Disposition: Home Social History Tobacco Use [...] Sign Reading Time Taken Comments Blood Pressure 109/68 03/05/2020 2:40 PM EDT Pulse 58 03/05/2020 2:25 PM EDT Temperature 37.1 ??C (98.7 ??F) 03/05/2020 1:18 PM ED T Respiratory Rate 14 03/05/2020 2:31 PM EDT Oxygen Saturation 95% 03/05/2020 2:40 PM EDT Inhaled Oxygen Concentration - - Weight 60.3 kg (133 lb) 03/05/2020 1:18 PM EDT Height - - Body Mass Index 20.94 02/22/2020 8:45 AM EDT documented in this encounter Discharge Instructions * Discharge Instructions* Ramona Sam RN - 03/05/2020 3:04 PM EDT Colonoscopy What to expect after the procedure You may feel a little more gassy or bloated than usual. This is normal. You should expect the return of normal bowel function in the 2 to 3 days. Activity Because of the sedation that you received your judgement and reaction time are effected ?? Go home and rest quietly for the remainder of the day. You may resume your normal activities tomorrow. ?? Change from one position to the next slowly. You may lose your balance unexpectedly ?? Be careful on stairs, as you may be unsteady on your feet FOR THE NEXT 24 HRS ?? DO NOT DRIVE OR OPERATE ANY MACHINERY ?? DO NOT DRINK ALCOHOLIC BEVERAGES ?? DO NOT SIGN LEGAL DOCUMENTS ?? If you are a smoker: DO NOT SMOKE WHILE YOU ARE ALONE Diet ?? Start by eating small portions of foods that ordinarily will not upset your stomach . Avoid gas producing foods for the next few days ?? Be gentle with what you choose to start with ?? Drink plenty of fluids ( unless your doctor has told you not to). IV SITE-- slight redness, or tenderness is normal. You can use warm compresses if you become concerned. If the tenderness +/or redness increases or foul drainage and a red streak occurs, please contact your PCP immediately When shoud you call for help? Call 911 anytime you think you may need emergency care. For example If you pass out ( loss of consciousness) If you pass maroon or bloody stools If you have severe belly pain Call your doctor now or seek immediate medical care If your stools are black and tarlike If your stools have streaks of blood, but you did not have a biopsy or any polyps removed If you have belly pain, or your belly is swollen and firm If you vomit If you have a fever If you are very dizzy Watch closely for changes in your health, and be sure to contact your doctor if you have any problems Your doctor will let you know when you will need your next colonoscopy. The results of your test and your risk for colorectal cancer will help your doctor decide how often you need to be checked. Wednesday-Wednesday Same Day Endo [phone] 7a-8p Otherwise contact [phone] and ask to speak to the documentation manager location director Follow up care is a oneil part of your treatment and safety. Be sure to make and go to all appointments, and call your doctor if you are having problems. Discharge instructions reviewed with patient who expresses understanding documented in this encounter Medications at Time [...] 10/30/2019 11/15/2020 documented as of this encounter H&P Notes * Sonny Mike MD - 03/05/2020 1:34 PM EDT Gastroenterology and Hepatology Pre-Procedure History and Physical Exam Procedure: Colonoscopy: Indication: Screening 59 y.o. yo healthy male for avg risk screening. No family history of colon cancer or polyps. No diarrhea, constipation, or rectal bleeding. Patient Active Problem List Diagnosis Code ??? Nevus D22.9 ??? Family history of malignant melanoma Z80.8 ??? Elevated serum creatinine R79.89 ??? Renal artery stenosis I70.1 ??? Atypical chest pain R07.89 ??? Lung nodule, solitary R91.1 EXAM: HEENT: Airway examined, oropharynx clear Mallampati Score: II (soft palate, uvula, fauces visible) LUNGS: Clear to auscultation HEART: Regular rate and rhythm, normal S1, S2 ABDOMEN: Normal bowel sounds, soft, non tender, non distended, A/P Proceed with the planned endoscopic procedure. ASA 2 - Patient with mild systemic disease with no functional limitations Sedation Plan: moderate (conscious sedation) Risks and benefits of the procedure explained to the patient. Consent signed. documented in this encounter Plan of Treatment Upcoming Encounters Date Type Department Care Team (Late st Contact Info) Description 06/16/2024 4:00 PM EDT Office Visit Neph[place] [phone] Betzaida Cope APRN [facility] [place] [address] 06/23/2024 2:00 PM EDT Appointment Non-[place] [address] Owen Correia MD [facility] [place] [address] documented as of this encounter Procedures Procedure Name Priority Date/Time Associated Diagnosis Comments Colonoscopy, Diagnostic (81477) 03/05/2020 1:51 PM EDT srceening COLONOSCOPY Routine 03/05/2020 1:38 PM EDT documented in this encounter Results * COLONOSCOPY (03/05/2020 1:38 PM EDT) COLONOSCOPY [facility] Endoscopy Procedure Date: 03/05/2020 1:38 PM ? Patient Name: Moshe Castillo ? Date of : 1960 ? Age: 59 ? Order #: [id number] ? Instrument Name: [id number] ? Procedure: ? Colonoscopy Indications: ? Screening for colorectal malignant ? neoplasm Providers: ? L. Willam Mike MD, Arley Valdivia ? Moshe Coffey Autumn ? Zackery Referring MD: ?Luther Garrison Medicines: ? Midazolam 4 [...] preparation was evaluated using ? the BBPS ([place] Bowel Preparation ? Scale) with scores of: [...] personally performed the entire procedure. ? __ LJesus Mike MD 03/05/2020 2:27:02 PM Number of Addenda: 0 Note Initiated On: 03/05/2020 1:38 PM PROVATION 03/05/2020 1:38 PM EDT Luther Garrison DO GENERAL SURGICAL ORD ERABLES PROVATION documented in this encounter Visit Diagnoses Not on filedocumented in this encounter Administered Medications Inactive Administered Medications - up to 3 most recent administrations Medication Order MAR Action Action Date Dose Rate Site lactated ringers infusion 100 mL/hr, Intravenous, CONTINUOUS, Starting on 03/05/20 at 1330, Until 03/05/20 at 1711, Endoscopy (Day of Procedure) documented in this encounter Active and Recently Administered Medications Times are shown in EDT. Continuous Medication Order 03/03/2020 03/04/2020 03/05/2020 lactated ringers infusion 100 mL/hr, Intravenous, CONTINUOUS, Starting on 03/05/20 at 1330, Until 03/05/20 at 1711, Endoscopy (Day of Procedure) 1330 (Due) PRN Medication Order 03/03/2020 03/04/2020 03/05/2020 fentaNYL 50 mcg/mL multi-dose injection (CANCELED) ONCE PRN, Starting on 03/05/20 at 1354, Until 03/05/20 at 1711, Intra-Operative (Intra-Procedure), Routine 1354 (Given - Provid er: Arley Coffey RN)1357 (Given - Provider: Arley Coffey RN)1400 (Given - Provider: Arley Coffey RN)1403 (Given - Provider: Arley Coffey RN) midazolam (PF) (VERSED) multi-dose injection (CANCELED) ONCE PRN, Starting on 03/05/20 at 1354, Until 03/05/20 at 1711, Intra-Operative (Intra-Procedure), Routine 1354 (Given - Provid er: Arley Coffey RN)1357 (Given - Provider: Arley Coffey, COLE)1400 (Given - Provider: Arley Coffey, COLE)1403 (Given - Provider: Arlye Coffey, COLE) documented in this encounter Care Teams Media Services Coordinator Relationship Specialty Start Date End Date Luther Garrison DO [facility] [place] [address] PCP - General General Internal Medicine 09/01/1902/05 documented as of this encounter
--- OUTSIDE RECORDS SUMMARY | 2024-06-09 02:55 | XMS_ITS | Encounter Summary ---
[place] [address] Care Team Providers Care Web Operations Manager Name Role Phone Luther Garrison DO Primary Care Provider [phone] Reason for Referral * Diagnostic Test (Routine) - Closed Specialty Diagnoses / Procedures Referred By Contac t Referred To Contact Radiology Diagnoses Segmental arterial mediolysis Procedures NM Renal Scan Geovani Pan MD [facility] [address] [place] [address] Referral ID Status Reason Start Date Expiration Date V isits Requested Visits Authorized [id number] Closed Specialty Service Requested 07/06/2019 07/05/2020 1 1 Reason for Visit * Diagnostic Test (Routine) - Closed Specialty Diagnoses / Procedures Referred By Contac t Referred To Contact Radiology Diagnoses Segmental arterial mediolysis Procedures NM Renal Scan Geovani Pan MD [facility] [address] [place] [address] Referral ID Status Reason Start Date Expiration Date V isits Requested Visits Authorized [id number] Closed Specialty Service Requested 07/06/2019 07/05/2020 1 1 Encounter Details Date Type Department Care Team (Latest Contact Info) Description 09/01/2019 8:48 AM EST - 09/01/2019 11:27 AM EST Hospital Encounter Nuclear Medicine at [place] [phone] Geovani Phan MD [facility] [place] [address] Segmental arterial mediolysis Discharge Disposition: Home Social History Tobacco Use [...] PM EDT Office Visit [place] [address] Betzaida Cope APRN [facility] [place] [address] 06/23/2024 2:00 PM EDT Appointment Non-[place]vasive [place] [address] Owen Correia MD [facility] [place] [address] documented as of this encounter Procedures Procedure Name Priority Date/Time Associated Diagnosis Comments NM RENAL SCAN ANATOMIC(DMSA) Routine 09/01/2019 11:53 AM EST Segmental arterial mediolysis documented in this encounter Results * NM Renal Scan Anatomic (09/01/2019 11:53 AM EST) Anatomical Region Laterality Modality Nuclear Medicine Impressions 09/01/2019 2:32 PM EST No functioning left kidney. Thank you for letting us participate in the care of this patient. For questions regarding this report, please contact the number below. ? Electronically signed by: YASMIN Pacheco [facility] ([phone]), at 09/01/2019 2:32 PM Narrative 09/01/2019 2:32 PM EST EXAMINATION: NM RENAL SCAN ANATOMIC CLINICAL HISTORY: h/o possible left renal artery dissection vs stenosis, ?has kidney function improved compared to prior TECHNIQUE: Two hours following the intravenous administration of 4.5 mCi Tc-99m DMSA, planar images of the kidneys were obtained in the anterior, and posterior projections. COMPARISON: December 05, 2018 FINDINGS: The right kidney is normal in size and configuration. There is no left renal activity. There has been no change in appearance since the prior examination. Procedure Note Te Weiss MD - 09/01/2019 EXAMINATION: NM RENAL SCAN ANATOMIC CLINICAL HISTORY: h/o possible left renal artery dissection vs stenosis,?has kidney function improved compared to prior TECHNIQUE: Two hours following the intravenous administration of 4.5 mCiTc-99m DMSA, planar images of the kidneys were obtained in the anterior, andposterior projections. COMPARISON: December 05, 2018 FINDINGS: The right kidney is normal in size and configuration. There is no leftrenal activity. There has been no change in appearance since the prior examination. 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 Thank you for letting us participate in the care of this patient. Forquestions regarding this report, please contact the number below. Geovani Phan MD IM NM ORDERABLES documented in this encounter Visit Diagnoses Diagnosis Segmental arterial mediolysis documented in this encounter Administered Medications Inactive Administered Medications - up to 3 most recent administrations Medication Order MAR Action Action Date Dose Rate Site technetium (Tc-99m) DMSA injection 4.5 mCi 4.5 mCi, Intravenous, ONCE PRN, 1 dose, Starting on Wed09/01/19 at 1000, Until Wed09/01/19 at 1000, Per Protocol, Routine Given 09/01/2019 10:00 AM EST 4.5 mCi Right Arm documented in this encounter Care Teams Web Operations Manager Relationship Specialty Start Date End Date Luther Garrison DO [facility] [place] [address] PCP - General General Internal Medicine 09/01/1902/05 documented as of this encounter
--- OUTSIDE RECORDS SUMMARY | 2024-06-09 02:55 | XMS_ITS | Encounter Summary ---
Author Organization Formerly [facility], Later [facility] [place] [address] Care Team Providers Care Turbine Measurements Engineer Name Role Phone Luther Garrison DO Primary Care Provider [phone] Reason for Visit * Diagnostic Test (Routine) - Closed Specialty Diagnoses / Procedures Referred By Contjanay t Referred To Contact Radiology Diagnoses Segmental arterial mediolysis Procedures NM Renal Scan Anatomic Geovani Phan MD [facility] [place] [address] [place] [address] Referral ID Status Reason Start Date Expiration Date V isits Requested Visits Authorized [id number] Closed Specialty Service Requested 07/06/2019 07/05/2020 1 1 Encounter Details Date Type Department Care Team (Latest Contact Info) Description 09/01/2019 11:28 AM EST - 09/01/2019 11:59 PM [facility] Hospital Encounter [place] [address] Geovani Phan MD [facility] [place] [address] Discharge Disposition: Home Social History Tobacco Use [...] PM EDT Office Visit Neph[place] [phone] Betzaida Cope APRN [facility] [place] [address] 06/23/2024 2:00 PM EDT Appointment Non-Invasive [place] [phone] Owen Correia MD [facility] [place] [address] documented as of this encounter Procedures Procedure [...] please contact the number below. ? Narrative 09/01/2019 2:32 PM EST EXAMINATION: NM [...] contact the number below. Geovani Phan MD [facility] [place] ORDERABLES documented in this encounter Visit Diagnoses Not on filedocumented in this encounter Care Teams Turbine Measurements Engineer Relationship Specialty Start Date End Date Luther Garrison DO [facility] [place] [address] PCP - General General Internal Medicine 09/[birth year]/1902/05 documented as of this encounter
--- OUTSIDE RECORDS SUMMARY | 2024-06-09 02:55 | XMS_ITS | Encounter Summary ---
[place] [address] Care Team Providers Care Commission Clerk Name Role Phone Rohit Anderson MD Primary Care Provider [phone] Reason for Referral * Diagnostic Test (Routine) - Specialty Diagnoses / Procedures Referred By Contac t Referred To Contact Radiology Diagnoses Left renal artery stenosis Procedures MRI Angiogram Head wo Contrast (Generic) MRI Angiogram Head wwo Contrast Geovani Phan MD [facility] [place] [address] [place] [address] Referral ID Status Reason Start Date Expiration Date Visits Requested Visits Authorized [id number] Specialty Service Requested 05/29/2019 07/27/2019 1 1 * Diagnostic Test (Routine) - Closed Specialty Diagnoses / Procedures Referred By Contac t Referred To Contact Radiology Diagnoses Left renal artery stenosis Procedures MRI Angiogram Neck wwo Contrast (Generic) Geovani Phan MD [facility] [place] [address] [place] [address] Referral ID Status Reason Start Date Expiration Date V isits Requested Visits Authorized [id number] Closed Specialty Service Requested 05/29/2019 07/27/2019 1 1 Reason for Visit * Diagnostic Test (Routine) - Closed Specialty Diagnoses / Procedures Referred By Laura ca Referred To Contact Radiology Diagnoses Left renal artery stenosis Procedures MRI Angiogram Neck wwo Contrast (Generic) Geovani Phan MD [facility] [place] [address] [facility] [place] [address] Referral ID Status Reason Start Date Expiration Date V isits Requested Visits Authorized [id number] Closed Specialty Service Requested 05/29/2019 07/27/2019 1 1 Encounter Details Date Type Department Care Team (Latest Contact Info) Description 06/05/2019 3:10 PM EDT - 06/05/2019 11:59 PM EDT Hospital [place] [address] Geovani Phan MD [facility] DR CARDIOLOGY DEPT [place], [place] [id number] Left renal artery stenosis Discharge Disposition: Home [...] Sig Dispensed Refills Start Date End Date ELIQUIS 5 mg Tablet Take 5 mg by mouth 2 times daily. 0 03/20/2019 07/06/2019 verapamil (CALAN-SR) 180 mg Tablet Sustained Release take 1 tablet by mouth once daily 0 01/05/2019 02/01/2020 lisinopril (PRINIVIL;ZESTRIL) 10 mg Tablet take 1 tablet by mouth once daily 0 01/19/2019 02/01/2020 documented as of this encounter Plan of Treatment Upcoming Encounters Date Type Department Care Team (Late st Contact Info) Description 06/16/2024 4:00 PM EDT Office Visit Nephrology [place] [phone] Betzaida Cope APRN [facility] [place] [address] 06/23/2024 2:00 PM EDT Appointment Non-[place] [address] Owen Correia MD [facility] [place] [address] documented as of this encounter Procedures Procedure Name Priority Date/Time Associated Diagnosis Comments MRI HEAD ANGIOGRAM WO CONTRAST Routine 06/05/2019 3:50 PM EDT Left renal artery stenosis MRI NECK ANGIOGRAM WWO CONTRAST Routine 06/05/2019 3:50 PM EDT Left renal artery stenosis documented in this encounter Results * MRI Angiogram Head wo Contrast (Generic) (06/05/2019 3:50 PM EDT) Anatomical Region Laterality Modality Head Magnetic Resonan ce Impressions 06/05/2019 9:25 PM EDT MRA head: Negative exam MRA NECK: Negative exam Thank you for letting us participate in the care of this patient. For questions regarding this report, please contact the number below. ? Electronically signed by: Aydin Flores MD, [facility] ([phone]), at 06/05/2019 9:25 PM Narrative 06/05/2019 9:25 PM EDT EXAMINATION: MRI [...] contact the number below. Electronically signed by: Aydin Flores MD, [facility]([phone]), at 06/05/2019 9:25 PM Geovani Phan MD IMG MRI ORDERABLES * MRI Angiogram Neck wwo Contrast (Generic) (06/05/2019 3:50 PM EDT) Anatomical Region Laterality Modality Neck Magnetic Resonan ce Impressions 06/05/2019 9:25 PM EDT MRA head: Negative exam MRA NECK: Negative exam Thank you for letting us participate in the care of this patient. For questions regarding this report, please contact the number below. ? Electronically signed by: Aydin Flores MD, [facility] ([phone]), at 06/05/2019 9:25 PM Narrative 06/05/2019 9:25 PM EDT EXAMINATION: MRI [...] contact the number below. Electronically signed by: Aydin Flores MD, [facility]([phone]), at 06/05/2019 9:25 PM Geovani Phan MD IM MRI ORDERABLES documented in this encounter Visit Diagnoses Diagnosis Left renal artery stenosis Atherosclerosis of renal artery documented in this encounter Administered Medications Inactive Administered Medications - up to 3 most recent administrations Medication Order MAR Action Action Date Dose Rate Site gadoterate meglumine (DOTAREM) 0.5 mmol/mL (376.9 mg/mL) injection 0-100 mL 0-100 mL, Intravenous, ONCE PRN, 1 dose, Starting on Wed06/05/19 at 1943, Until Wed06/05/19 at 1545, Per Protocol, Radiology Contrast, Routine Given 06/05/2019 3:45 PM EDT 13 mLs documented in this encounter Care Teams Commission Clerk Relationship Specialty Start Date End Date Rohit Anderson MD [address] [facility] [address] [place] [address] PCP - General General Internal Medicine 12/18/18 documented as of this encounter
--- OUTSIDE RECORDS SUMMARY | 2024-06-09 02:55 | XMS_ITS | Encounter Summary ---
Author [facility] [place] [address] Care Team Providers Care Parts Representative Name Role Phone Luther Garrison DO Primary Care Provider [phone] Encounter Details Date Type Department Care Team (Late st Contact Info) Description 02/23/2020 Telephone [place] [address] Stephany Fan Social History Tobacco Use Types Packs/Day Years [...] PM EDT Office Visit Nephrology [place] [address] Betzaida Cope APRN [facility] [place] [address] 06/23/2024 2:00 PM EDT Appointment Non-[place] [address] Owen Correia MD [facility] [place] [address] documented as of this encounter Visit Diagnoses Not on filedocumented in this encounter Care Teams Parts Representative Relationship Specialty Start Date End Date Luther Garrison DO [facility] [place] [address] PCP - General General Internal Medicine 09/01/1902/05 documented as of this encounter
--- OUTSIDE RECORDS SUMMARY | 2024-06-09 02:55 | XMS_ITS | Encounter Summary ---
Author Organization [facility] Address [facility] [place] [address] Care Team Providers Care Industrial Management Teacher Name Role Phone Luther Garrison DO Primary Care Provider [phone] Encounter Details Date Type Department Care Team (Late st Contact Info) Description 01/03/2020 8:00 AM EDT TH Visit (TeleHealth) [place] [address] Ernie Garrett MD [facility] [place] [address] Renal infarction Social History Tobacco Use Types [...] Sign Reading Time Taken Comments Blood Pressure 134/83 01/03/2020 7:56 AM EDT Pulse 58 01/03/2020 7:56 AM EDT Temperature - - Respiratory Rate - - Oxygen Saturation - - Inhaled Oxygen Concentration - - Weight 60.8 kg (134 lb) 01/03/2020 7:56 AM EDT Height - - Body Mass Index 20.99 01/02/2020 10:20 AM EDT documented in this encounter Progress Notes * Ernie Garrett MD - 01/03/2020 8:00 AM EDT Patient visit by telephone. 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 The etiology of this was never determined precisely. He had a ZIO Patch which did not show any arrhythmias. Since the eventhe is continued to do well. We reviewed his creatinine over the past year which has been stable and in the 1.3-1.5 range. On one urinalysis he had some modest proteinuria but this was very proximate to the event and may have reflected protein from the infarcted kidney. Otherwise he is tolerating the current blood pressure meds which include verapamil and lisinopril. The verapamil was changed from amlodipine when he felt theamlodipine was causing some chest discomfort/anxiety. Recent Results (from the past 72 hour(s)) Protein/Creatinine Ratio, urine Result Value Ref Range U Creatinine 62 mg/dL U Protein Ran <6 0 - 12 mg/dL Prot/Cre Ratio <0.1 ratio Urinalysis with reflex Culture Result Value Ref Range Glucose UA Negative Negative mg/dL Protein UA Negative Negative mg/dL Bilirubin UA Negative Negative mg/dL Urobilinogen UA Normal Normal mg/dL pH UA 6.0 5.0 - 8.0 Blood UA Negative Negative mg/dL Ketones UA Negative Negative mg/dL Nitrite UA Negative Negative Leukocytes UA Negative Negative mcL Appearance UA Clear Clear Spec Flushing UA 1.014 1.002 - 1.030 Color UA Yellow Yellow Culture Reflexed No Assessment and plan: I think it would be helpful to get a 24-hour blood pressure monitor as he has some anxiety with taking his own blood pressure. He will arrange to come in and have the monitor placed and then return it by mail. In addition we will check his urine for protein at this time. Depending on the results of these we may either modify his AKUA inhibitor or his calcium brown. I reassured him that in some ways, he is like a kidney transplant donor and should not let the anxiety of having lost his left kidney impair his ability to enjoy life. He seems to be doing well overall at this point however. documented in this encounter Plan of Treatment Upcoming Encounters Date Type Department Care Team (Late st Contact Info) Description 06/16/2024 4:00 PM EDT Office Visit [place] [address] Betzaida Cope APRN [facility] [place] [address] 06/23/2024 2:00 PM EDT Appointment Non[place] [address] Owen Correia MD [facility] CARDIOLOGY [place], [place] [id number] documented as of this encounter Results * Protein/Creatinine Ratio, urine (01/04/2020 3:30 PM EDT) Creatinine, Urine 62 mg/dL [facility] Protein, Urine <6 0 - 12 mg/dL [facility] Protein / Creatinine Ratio, Urine <0.1 ratio [facility] Urine specimen (specimen) 01/04/2020 3:30 PM EDT 01/04/2020 3:59 PM EDT Narrative Resulting Agency Comment Spec In Lab Ernie Garrett MD URINE ORDERABLES [facility] [place] [address] * Urinalysis with reflex Culture (01/04/2020 3:30 PM EDT) Glucose, Urine Dipstick Negative Negative mg/dL [facility] Protein, Urine Dipstick Negative Negative mg/dL [facility] Bilirubin, Urine Dipstick Negative Negative mg/dL [facility] Comment: Clinical correlation required for positive Urine Bilirubin results as false positive may occur with some drugs and drug related products. If a false positive is suspected a serum total bilirubin should be considered if clinically indicated. Urobilinogen, Urine Dipstick Normal Normal mg/dL [facility] pH, Urn (dipstick) 6.0 5.0 - 8.0 [facility] Blood, Urine Dipstick Negative Negative mg/dL [facility] Ketone, Urine Dipstick Negative Negative mg/dL [facility] Nitrite, Urine Dipstick Negative Negative [facility] Leukocytes, Urine Dipstick Negative Negative [facility] Appearance, Urine Dipstick Clear Clear [facility] Specific Flushing Urine Automated 1.014 1.002 - 1.030 [facility] Color, Urine Dipstick Yellow Yellow [facility] Reflex to Culture No [facility] Urine specimen (specimen) 01/04/2020 3:30 PM EDT 01/04/2020 3:59 PM EDT Narrative Resulting Agency Comment Spec In Lab Ernie Garrett MD URINE ORDERABLES [facility] [place] [address] documented in this encounter Visit Diagnoses Diagnosis Renal infarction Vascular disorders of kidney documented in this encounter Care Teams Industrial Management Teacher Relationship Specialty Start Date End Date Luther Garrison DO [facility] [place] [address] PCP - General General Internal Medicine 09/01/1902/05 documented as of this encounter
--- OUTSIDE RECORDS SUMMARY | 2024-06-09 02:55 | XMS_ITS | Encounter Summary ---
[place] [address] Care Team Providers Care Flatwork Feeder Name Role Phone Rohit Anderson MD Primary Care Provider [phone] Reason for Referral * Diagnostic Test (Routine) - Closed Specialty Diagnoses / Procedures Referred By Contac t Referred To Contact Radiology Diagnoses Left renal artery stenosis Procedures MRI Angiogram Abdomen Geovani Walker MD [facility] [place] [address] [place] [address] Referral ID Status Reason Start Date Expiration Date V isits Requested Visits Authorized [id number] Closed Specialty Service Requested 05/29/2019 07/27/2019 1 1 Reason for Visit * Diagnostic Test (Routine) - Closed Specialty Diagnoses / Procedures Referred By Contac t Referred To Contact Radiology Diagnoses Left renal artery stenosis Procedures MRI Angiogram Abdomen Geovani Walker MD [facility] [place] [address] [place] [address] Referral ID Status Reason Start Date Expiration Date V isits Requested Visits Authorized [id number] Closed Specialty Service Requested 05/29/2019 07/27/2019 1 1 Encounter Details Date Type Department Care Team (Latest Contact Info) Description 06/23/2019 3:04 PM EDT - 06/23/2019 11:59 PM EDT Hospital Encounter MRI at [place] [phone] Geovani Phan MD [facility] [place] [address] Left renal artery stenosis Discharge Disposition: Home [...] PM EDT Office Visit [place] [address] Betzaida Cope, [place] [facility] [place] [address] 06/23/2024 2:00 PM EDT Appointment Non-[place] [address] Owen Correia MD [facility] [place] [address] documented as of this encounter Procedures Procedure Name Priority Date/Time Associated Diagnosis Comments MRI ANGIOGRAM ABDOMEN WWO CONTRAST Routine 06/23/2019 3:53 PM EDT Left renal artery stenosis documented in this encounter Results * MRI Angiogram Abdomen wwo Contrast (06/23/2019 3:53 PM EDT) Anatomical Region Laterality Modality Abdomen Magnetic Resonan ce Impressions 06/23/2019 4:11 PM EDT 1. ??No visible perfusion of the LEFT kidney on the arterial phase angiogram images. However, the LEFT renal cortex exhibits enhancement on the delayed postcontrast images. These results likely indicate a critical stenosis of the LEFT renal artery rather than total occlusion. Thank you for letting us participate in the care of this patient. For questions regarding this report, please contact the number below. ? Electronically signed by: Sotero Cazares [facility] ([phone]), at 06/23/2019 4:11 PM Narrative 06/23/2019 4:11 PM EDT EXAMINATION: MRI ANGIOGRAM ABDOMEN WWO CONTRAST CLINICAL HISTORY: Dx: Left renal artery stenosis TECHNIQUE: Multiplanar, multisequence MRA of the abdomen was performed with imaging obtained prior to and following the intravenous administration of 12ml Dotarem. COMPARISON: MRI from 11/28/2018 FINDINGS: Vasculature: Abdominal aorta: Normal caliber. No aneurysm. Celiac axis: Normal. SMA: Normal. ANT: Normal. Right renal artery: Normal. Left renal artery: The LEFT renal artery does not opacify any of the postcontrast angiogram acquisitions (series 609 through 612) however, on the three-minute delayed postcontrast axial and coronal images (series 7, 8) the renal LEFT renal parenchyma is perfused but to a lesser intensity/extent compared to the RIGHT. The LEFT kidney is also atrophic compared to the RIGHT. Thus, there is low level of perfusion to the LEFT kidney, which is not visible on the angiogram portion of the exam, likely due to a critical stenosis of the LEFT renal artery Lower chest: Normal. Liver: Scattered small T2 hyperintense foci are noted in the RIGHT hepatic lobe, compatible with small cysts. Bile ducts: Nondilated. Gallbladder: No gallstones. Normal caliber wall. Pancreas: Normal. Spleen: Normal. Adrenals: Normal. Kidneys: Normal enhancement of the RIGHT kidney. Decreased enhancement of the LEFT kidney and visible on the delayed postcontrast images, as described above. Lymph nodes: No enlarged lymph nodes. Bowel: Nondilated, no inflammatory changes. Peritoneum and mesentery: No ascites or loculated fluid collection. Marrow Signal: Normal. Procedure Note Sotero Cazares MD - 06/23/2019 EXAMINATION: MRI ANGIOGRAM ABDOMEN WWO CONTRAST CLINICAL HISTORY: Dx: Left renal artery stenosis TECHNIQUE: Multiplanar, multisequence MRA of the abdomen was performedwith imaging obtained prior to and following the intravenous administration of12ml Dotarem. COMPARISON: MRI from 11/28/2018 FINDINGS: Vasculature: Abdominal aorta: Normal caliber. No aneurysm. Celiac axis: Normal. SMA: Normal. ANT: Normal. Right renal artery: Normal. Left renal artery: The LEFT renal artery does not opacify any of the postcontrast angiogram acquisitions (series 609 through 612) however, onthe three-minute delayed postcontrast axial and coronal images (series 7, 8)the renal LEFT renal parenchyma is perfused but to a lesser intensity/extent compared to the RIGHT. The LEFT kidney is also atrophic compared to theRIGHT. Thus, there is low level of perfusion to the LEFT kidney, which is notvisible on the angiogram portion of the exam, likely due to a critical stenosis ofthe LEFT renal artery Lower chest: Normal. Liver: Scattered small T2 hyperintense foci are noted in the RIGHT hepaticlobe, compatible with small cysts. Bile ducts: Nondilated. Gallbladder: No gallstones. Normal caliber wall. Pancreas: Normal. Spleen: Normal. Adrenals: Normal. Kidneys: Normal enhancement of the RIGHT kidney. Decreased enhancement ofthe LEFT kidney and visible on the delayed postcontrast images, as describedabove. Lymph nodes: No enlarged lymph nodes. Bowel: Nondilated, no inflammatory changes. Peritoneum and mesentery: No ascites or loculated fluid collection. Marrow Signal: Normal. IMPRESSION 1. No visible perfusion of the LEFT kidney on the arterial phaseangiogram images. However, the LEFT renal cortex exhibits enhancement on thedelayed postcontrast images. These results likely indicate a critical stenosis ofthe LEFT renal artery rather than total occlusion. Thank you for letting us participate in [...] Intravenous, ONCE PRN, 1 dose, Starting on Wed06/23/19 at 1515, Until Wed06/23/19 at 1545, Per Protocol, Radiology Contrast, Routine Given 06/23/2019 3:45 PM EDT 12 mLs documented in this encounter Care Teams Flatwork Feeder Relationship Specialty Start Date End Date Rohit Anderson MD [address] [place] [address] PCP - General General Internal Medicine 12/18/18 documented as of this encounter
--- OUTSIDE RECORDS SUMMARY | 2024-06-09 02:55 | XMS_ITS | Encounter Summary ---
Author Organization [facility] [place] [address] Care Team Providers Care Corporate Operations Compliance Manager Name Role Phone Andi Thomas MD Primary Care Provider [phone] Reason for Visit * Reason Onset Date Comments Medication Refill 02/18/2021 Encounter Details Date Type Department Care Team (Late st Contact Info) Description 02/18/2021 Ref[place] [phone] Zahraa Hansen MD [facility] [place] [address] Social History Tobacco Use Types Packs/Day Years [...] PM EDT Office Visit [place] [phone] Betzaida Cope APRN [facility] [place] [address] 06/23/2024 2:00 PM EDT Appointment Non-[place]vasive [place] [address] Owen Correia MD [facility] [place] [address] documented as of this encounter Visit Diagnoses Not on filedocumented in this encounter Additional Health Concerns Infection Onset Date Last Indicated Resolved Time Rule Out Respiratory 11/24/2023 11/25/2023 024 2:51 AM EDT Rule Out COVID-19 11/24/2023 11/25/2023 11/25/2023 2:51 AM EDT documented as of this encounter Care Teams Corporate Operations Compliance Manager Relationship Specialty Start Date End Date Andi Thomas MD [facility] [place] [address] PCP - General General Internal Medicine 03/01/22 documented as of this encounter
--- OUTSIDE RECORDS SUMMARY | 2024-06-09 02:55 | XMS_ITS | Encounter Summary ---
[place] [address] Care Team Providers Care Exterminator Helper Name Role Phone Luther Garrison DO Primary Care Provider [phone] Reason for Referral * Consultation (Routine) - Closed Specialty Diagnoses / Procedures Referred By Laura ca Referred To Contact Gastroenterology Diagnoses Annual physical exam Luther Garrison DO [facility] GENER[facility] INTER[place] [address] [facility] End[address] [place] [address] Referral ID Status Reason Start Date Expiration Date V isits Requested Visits Authorized [id number] Closed Test Only 02/22/2020 02/21/2021 1 1 Encounter Details Date Type Department Care Team (Late st Contact Info) Description 02/22/2020 Orders [place] [address] Luther Garrison [facility] [address] [facility] [place] [address] Annual physical exam Social History Tobacco Use Types Packs/Day Years [...] PM EDT Office Visit Ne[place] [phone] Betzaida Cope APRN [facility] [place] [address] 06/23/2024 2:00 PM EDT Appointment Non-[place]vasive [place] [address] Owen Correia MD [facility] [place] [address] Scheduled Referrals Name Type Priority Associated Diagnoses Order Schedule Referral to Gastroenterology Outpatient Referral Routine Annual physical exam Ordered: 02/22/2020 documented as of this encounter Visit Diagnoses Diagnosis Annual physical exam Routine general medical examination at a health care facility documented in this encounter Care Teams Exterminator Helper Relationship Specialty Start Date End Date Luther Garrison DO [facility] GENER[facility] INTER[place] [address] PCP - General General Internal Medicine 09/01/1902/05 documented as of this encounter
--- OUTSIDE RECORDS SUMMARY | 2024-06-09 02:55 | XMS_ITS | Encounter Summary ---
[place] [address] Care Team Providers Care Cafe Worker Name Role Phone Luther Garrison DO Primary Care Provider [phone] Encounter Details Date Type Department Care Team (Late st Contact Info) Description 02/23/2020 Telephone [place] [phone] Teri Sommers Social History Tobacco Use Types Packs/Day Years [...] encounter Miscellaneous Notes * Telephone Encounter - Teri Sommers - 02/23/2020 4:34 PM EDT Last colo done at [facility] 11 years ago * Telephone Encounter - Teri Sommers - 02/23/2020 4:31 PM EDT Moshe Castillo [id number] Diagnosis/Indication: colonoscopy ? 1. Have you ever had a/an Colonoscopy before? Yes: Date 11 years ago If yes, did you have any problems with the procedure? No What type of sedation was used: IV Conscious Sedation ?? 2. Do you take any Blood Thinners? No ?? 3. Do you have a Pacemaker or Defibrillator device? No ?? 4. Are you a diabetic? No ?? 5. Do you have any Allergies to Eggs, Latex or Medications? Yes: pseudophed 6. Do you take any Oral Iron Supplements (Including multi-vitamins)? No ?? 7. Do you have a history of three or more abdominal surgeries? No ?? 8. Have you had a problem with sedation or anesthesia? No 9. Do you have a c-pap machine or oxygen tank? Neither 10. Do you take prescription narcotic pain medications, including suboxone or methodone? No ?? 11. Do you have a preference regarding the gender of your provider? No Preference ?? 12. Is there any other information you would like to give us to aid in scheduling? Yes: has lost function in one kidney ?? 13. Say to patient: You must have a responsible green party who will drive you to your procedure, stay [place] for the entire duration of your procedure, and drive you home from your procedure? ?? *Please Verify the height and weight, and adjust if height and/or weight have changed* Estimated body mass index is 21.25 kg/m?? as calculated from the following: Height as of 02/22/20: 169.7 cm (5' 6.83). Weight as of 02/22/20: 61.2 kg (135 lb). ?? Age:59 documented in this encounter Plan of Treatment Upcoming Encounters Date Type Department Care Team (Late st Contact Info) Description 06/16/2024 4:00 PM EDT Office Visit [place] [phone] Betzaida Cope APRN [facility] [place] [address] 06/23/2024 2:00 PM EDT Appointment Non-[place] [address] Owen Correia MD [facility] [place] [address] documented as of this encounter Visit Diagnoses Not on filedocumented in this encounter Care Teams Cafe Worker Relationship Specialty Start Date End Date uLther Garrison DO [facility] [place] [address] PCP - General General Internal Medicine [birth year]02/05 documented as of this encounter
--- OUTSIDE RECORDS SUMMARY | 2024-06-09 02:55 | XMS_ITS | Encounter Summary ---
Author Organization [facility] [place] [address] Care Team Providers Care Logging Assistant Name Role Phone Bladimir Luther Hernandez DO Primary Care Provider [phone] Reason for Visit * Reason Onset Date Comments Medication Refill 02/04/2021 Encounter Details Date Type Department Care Team (Late st Contact Info) Description 02/04/2021 Ref[place] [phone] Zahraa Hansen MD [facility] [place] [address] Social History Tobacco Use Types Packs/Day Years [...] PM EDT Office Visit [place] [phone] Betzaida Cope APRN [facility] [place] [address] 06/23/2024 2:00 PM EDT Appointment Non-[place]vasive [place] [address] Owen Correia MD [facility] [place] [address] documented as of this encounter Visit Diagnoses Not on filedocumented in this encounter Care Teams Logging Assistant Relationship Specialty Start Date End Date Luther Garrison DO [facility] [place] [address] PCP - General General Internal Medicine [birth year]02/[birth year] documented as of this encounter
--- OUTSIDE RECORDS SUMMARY | 2024-06-09 02:55 | XMS_ITS | Encounter Summary ---
[place] [address] Care Team Providers Care Frame Operator Name Role Phone Rohit Anderson MD Primary Care Provider [phone] Reason for Referral * Diagnostic Test (Routine) - Closed Specialty Diagnoses / Procedures Referred By Contac t Referred To Contact Radiology Diagnoses Segmental arterial mediolysis Procedures NM Renal Scan Anatomic Geovani Phan MD [facility] [address] [place] [address] Referral ID Status Reason Start Date Expiration Date V isits Requested Visits Authorized [id number] Closed Specialty Service Requested 07/06/2019 07/05/2020 1 1 * Consultation (Routine) - Closed Specialty Diagnoses / Procedures Referred By Contac t Referred To Contact Internal Medicine Diagnoses CKD (chronic kidney disease) stage 2, GFR 60-89 ml/min Hypertension, essential, benign Goevani Phan MD [facility] [address] [address] Referral ID Status Reason Start Date Expiration Date V isits Requested Visits Authorized [id number] Closed Consult, Test & Treat 07/06/2019 07/05/2020 1 1 Reason for Visit * Reason Comments Renal Artery Stenosis Encounter Details Date Type Department Care Team (Late st Contact Info) Description 07/06/2019 4:40 PM EDT Office Visit Cardiology at [address] [address] Geovani Phan MD [facility] [address] Segmental arterial mediolysis; CKD (chronic kidney disease) stage 2, GFR 60-89 ml/min; Hypertension, essential, benign; Lung nodule Social History Tobacco Use Types Packs/Day Years [...] Sign Reading Time Taken Comments Blood Pressure 131/89 07/06/2019 4:22 PM EDT Pulse 62 07/06/2019 4:22 PM EDT Temperature - - Respiratory Rate - - Oxygen Saturation 100% 07/06/2019 4:22 PM EDT Inhaled Oxygen Concentration - - Weight 60.8 kg (134 lb) 07/06/2019 4:22 PM EDT Height 170.2 cm (5' 7) 07/06/2019 4:22 PM EDT Body Mass Index 20.99 07/06/2019 4:22 PM EDT documented in this encounter Progress Notes * Geovani Phan MD - 07/06/2019 4:40 PM EDT Images from the original note were not included. [facility] JOANA Millard [address] CARDIOVASCULAR MEDICINE OUTPATIENT CONSULTATION Moshe Castillo [id number] 07/06/19 REFERRING PROVIDER: Rohit Anderson CHIEF COMPLAINT: Chief Complaint Patient presents with ??? Renal Artery Stenosis PROBLEM LIST Patient Active Problem List Diagnosis ??? Chest pain ??? Flank pain ??? Elevated serum creatinine ??? Renal artery stenosis ??? Nevus ??? Family history of malignant melanoma HISTORY OF PRESENT ILLNESS: Mr. Castillo is a very pleasant 58 year old man whom I met on 04/03/19 for an opinion regarding left renal artery stenosis and infract. He was admitted to [facility] medicine service from 11/26-12/01/18 due to bloating and left flank pain after being diagnosed with PNA; his initial work-up showed severe left renal artery stenosis c/b renal infarct. He had extensive work-up including TTE, DELON/ANCA, Ziopatch w/o atrial arrhythmia, renal study with nonfunctioning kidney (this is reason he was not intervened upon). He has been anticoagulated with apixaban. We had obtained MRA head/neck and chest/abdomen/pelvis to look for dissections or other vascular abnormalities as I wondered whether his presentation could be due to FMD or segmental arterial mediolysis. MRA head/neck unremarkable. MRA abdomen showed enhancement of left renal cortex on delayed postcontrast images, suggestive of critical left renal artery stenosis rather than total occlusion (thiswas previously seen on prior MRA although functional study showed non- functioning kidney). MRA chest showed no evidence of dissections; ascending thoracic aorta is 4.1 cm; also, there is a nodular opacity at right lateral lung base. On discussion with Mr. Castillo, he has not had any flank or abdominal pain. He describes a weird sensation in his chest radiating to neck - not pain. It is difficult to describe. There are no specific features that provoke or improve it. He denies other symptoms including chest pain, shortness of breath, PND, orthopnea, lower extremity edema, pre-syncope or syncope. No hematuria. He has been activebut has not gone back to playing basketball yet. REVIEW OF SYSTEMS: All others negative except as stated in the HPI. CardioVascular Pre Appointment Symptom Review 07/06/2019 Angina (chest discomfort) Frequency: None Shortness of breath: Almost never Palpitations (skipped beats): No Leg swelling: No Dizziness/light headedness: No Loss of consciousness: No Difficulty lying flat (because of breathing): No Chills: No Fatigue: No Fever: No Unintended weight change: No Nosebleeds: No Difficulty swallowing: No Visual disturbances: No Frequent cough: No Wheezing: No Snoring: No Abdominal pain: No Diarrhea: No Blood in bowel movement: No Black, tarry bowel movement: No Nausea/vomiting: No Heat/cold intolerance: No Problems urinating: No Joint pains: No Muscle pain: No Rash: No Weakness/numbness: No Speech problems: No Easy bruising/bleeding: No Depression: No Anxiety: No Poor sleep: No PAST MEDICAL HISTORY: No past medical history [...] Outpatient Medications Medication Sig Dispense Refill ??? verapamil (CALAN-SR) 180 mg Tablet Sustained Release take 1 tablet by mouth once daily 0 ??? lisinopril (PRINIVIL;ZESTRIL) 10 mg Tablet take 1 tablet by mouth once daily 0 ??? aspirin 81 mg Tablet, Delayed Release (E.C.) Take 1 tablet by mouth daily. 30 tablet 3 No current facility-administered medications for this visit. ALLERGIES: Amlodipine and Pseudafen [pseudoephedrine hcl] PHYSICAL EXAMINATION: Vital Signs: BP 131/89 Pulse 62 Ht 170.2 cm (5' 7) Wt 60.8 [...] 124* 104* Last 3 Lytes Recent Labs 07/05/19 1756 02/14/19 1529 12/18/18 1900 NA 143 142 140 K 4.4 4.5 4.2 CL 103 102 99 CO2 28 28 28 BUN 17 20 14 CREATININE 1.48 1.53* 1.53* 1.30 EKG 12/19/18: NSR 61 bpm, non-specific ST-T wave abnormality ?? Stress TTE 12/19/18: 1. BASELINE ECHO: There [...] identified within the kidney. Patent renal vein. Renal anatomic scan 12/05/18: IMPRESSION Nonfunctioning left kidney. MRA head/neck 06/05/19: IMPRESSION MRA head: Negative exam MRA NECK: Negative exam MRA abdomen 06/23/19: IMPRESSION 1. No visible perfusion of the LEFT kidney on the arterial phase angiogram images. However, the LEFT renal cortex exhibits enhancement on the delayed postcontrast images. These results likely indicate a critical stenosis of the LEFT renal artery rather than total occlusion. MRA chest 07/06/19: IMPRESSION Borderline dilatation of the ascending thoracic aorta measuring 41 mm. No dissection. ?? UNEXPECTED FINDING of persistence of a mildly [...] size that may raise concern for malignancy. ASSESSMENT AND PLAN: #1 Left renal infarct #2 Hypertension Mr. Castillo is a 58 year old man with left renal infarct and hypertension who presents for follow-up.Cardiac work-up unrevealing without evidence of PFO, AF; no evidence of vasculitis. His MRA head/neck C/A/P unrevealing. MRA abdomen notes enhancement of left renal cortex on post-contract images, more consistent with critical stenosis rather than total occlusion. Prior anatomic study negative. wonders whether with anticoagulation, he may have had some reconstitution of flow to renal artery; this is possible, especially if there was a dissection there. Repeat functional study is reasonable to compare to previous one. If they kidney is functional, I wonder about role of angiography to better define anatomy, especially with IVUS to better understand the pathophysiology of the lesion. If kidney is non-functioning, I do not think benefits of angiography outweigh the risks. We discussed that the top differential for me is still segmental arterial mediolysis. He does not have any other arterial abnormalities to suggest connective tissue disorder. We discussed what is known and not known about BELLA, and its pathophysiology. At this point, I think switching to ASA 81 mg daily from apixaban is reasonable as anticoagulation does not seem to provide any favorable outcomes compared to antiplatelet agents in BELLA, at least at the initial event. We discussed things to look out for, including severe abdominal pain, flank pain, hematuria, new claudication, signs/symptoms of stroke. I believe he can go back to playing basketball. His HTN is well controlled today. MRA chest also noted persistent opacity at right lateral lung base - we will repeat CT chest as would be able to compared to images from 11/24/18. In terms of borderline ascending thoracic aorta dilatation, we can follow with imaging annually. Plan: 1. Repeat renal functional study. 2. Discontinue apixaban. Start aspirin 81 mg daily. 3. Continue lisinopril and verapamil. 4. CT chest. 5. Imaging of aorta in 1 year. 6. Return to clinic in 6 months, or sooner if necessary. Thank you for allowing me to participate in the care of your patient. Please do not hesitate to contact me with any questions or concerns. Geovani Phan MD, MPH, [facility] Cardiovascular Apple Peeler OperatorSlate [place] [address] documented in this encounter Plan of Treatment Upcoming Encounters Date Type Department Care Team (Late st Contact Info) Description 06/16/2024 4:00 PM EDT Office Visit Nephrology [place] [address] Betzaida Cope APRN [facility] [place] [address] 06/23/2024 2:00 PM EDT Appointment Non-Invasive [place] [address] Owen Correia MD [facility] [place] [address] Scheduled Referrals Name Type Priority Associated Diagnoses Orde r Schedule Referral to General Internal Medicine Outpatient Referral Routine CKD (chronic kidney disease) stage 2, GFR 60-89 ml/min Hypertension, essential, benign Ordered: 07/06/2019 documented as of this encounter Results * NM Renal Scan [...] contact the number below. Geovani Phan MD [facility] [place] ORDERABLES documented in this encounter Visit Diagnoses Diagnosis Segmental arterial mediolysis CKD (chronic kidney disease) stage 2, GFR 60-89 ml/min Chronic kidney disease, Stage II (mild) Hypertension, essential, benign Essential hypertension, benign Lung nodule Solitary pulmonary nodule Segmental arterial mediolysis documented in this encounter Care Teams Frame Operator Relationship Specialty Start Date End Date Rohit Anderson MD [address] [address] PCP - General General Internal Medicine 12/18/18 documented as of this encounter
--- OUTSIDE RECORDS SUMMARY | 2024-06-09 02:55 | XMS_ITS | Encounter Summary ---
Author Organization [facility] [place] [address] Care Team Providers Care Volunteer Recruiter Name Role Phone Rohit Anderson MD Primary Care Provider [phone] Encounter Details Date Type Department Care Team (Latest Contact Info) Description 07/05/2019 5:50 PM EDT Laboratory Appointment Lab [address] [place] [phone] Renovascular hypertension Social History Tobacco Use Types Packs/Day Years [...] PM EDT Office Visit Nephrology [place] [phone] Betzaida Cope, [facility] [place] [address] 06/23/2024 2:00 PM EDT Appointment Non-[place] [phone] Owen Correia MD [facility] [place] [address] documented as of this encounter Procedures Procedure Name Priority Date/Time Associated Diagnosis Comments HC VENIPUNCTURE Routine 07/05/2019 5:56 PM EDT Renovascular hypertension documented in this encounter Results * (ABNORMAL) Basic Metabolic Panel (non-fasting) (07/05/2019 5:56 PM EDT) Glucose 77 65 - 199 mg/dL [facility] Comment:Diabetes: >=200 mg/d L plus symptoms Blood Urea Nitrogen 17 10 - 20 mg/dL [facility] Creatinine 1.48 0.80 - 1.50 mg/dL [facility] Sodium 143 135 - 145 mmol/L [facility] Potassium 4.4 3.5 - 5.0 mmol/L [facility] Comment: Please note: ??Patients with WBC >100,000 may have falsely elevated Potassium levels. ??For accurate Potassium quantification in these patients send serum separator tube (gold top) for subsequent determinations. ??Contact the Clinical Chemistry Laboratory if there are any questions. Chloride 103 98 - 107 mmol/L [facility] Carbon Dioxide 28 22 - 31 mmol/L [facility] Anion Gap 12 5 - 15 mmol/L [facility] Calcium 9.3 8.5 - 10.5 mg/dL [facility] Est Glomerular Filtration Rate 51(L) >=60 mL/min/1. 73 m?? [facility] Comment: The eGFR was calculated using the CKD-EPI equation. As with all creatinine based estimates of kidney function, eGFR values calculated with the CKD-EPI equation are not accurate in patients with acute kidney failure, extremes of body mass or the acutely ill. [email or web address].[email or web address]/DHMCnkf eGFR 60 >=60 mL/min/1. 73 m?? [facility] Comment: The eGFR was calculated using the CKD-EPI equation. As with all creatinine based estimates of kidney function, eGFR values calculated with the CKD-EPI equation are not accurate in patients with acute kidney failure, extremes of body mass or the acutely ill. [email or web address].com/[email or web address] Blood specimen (specimen) 07/05/2019 5:56 PM EDT 07/05/2019 6:01 PM EDT Narrative Resulting Agency Comment Spec In Lab Geovani Phan MD CHEMISTRY ORDERABLES Performing Organization Address [facility]/State/[facility] Co de Phone Number [facility] [place] [address] documented in this encounter Visit Diagnoses Diagnosis Renovascular hypertension Secondary renovascular hypertension, unspecified documented in this encounter Care Teams Volunteer Recruiter Relationship Specialty Start Date End Date Rohit Anderson MD [address] [address] PCP - General General Internal Medicine 12/18/18 documented as of this encounter
--- OUTSIDE RECORDS SUMMARY | 2024-06-09 02:55 | XMS_ITS | Encounter Summary ---
Author Organization [facility] [place] [address] Care Team Providers Care Nanoelectronics Engineer Name Role Phone Rohit Anderson MD Primary Care Provider [phone] Encounter Details Date Type Department Care Team (Latest Contact Info) Description 02/14/2019 3:30 PM EDT Laboratory Appointment Lab [address] [place] [address] Pre-op testing; Renal artery stenosis Social History Tobacco Use [...] EDT Office Visit Nephrology [place] [address] Betzaida Cope, [facility] NEPHROLOGY [place], [place] [phone] 06/23/2024 2:00 PM EDT Appointment Non-[place] [address] Owen Correia MD [facility] [place] [address] documented as of this encounter Procedures Procedure Name Priority Date/Time Associated Diagnosis Comments CREATININE STAT 02/14/2019 3:29 PM EDT Pre-op testing Renal artery stenosis BASIC METABOLIC PANEL STAT 02/14/2019 3:29 PM EDT Renal artery stenosis documented in this encounter Results * (ABNORMAL) Basic Metabolic Panel (non-fasting) (02/14/2019 3:29 PM EDT) Glucose 82 65 - 199 mg/dL [facility] Comment:Diabetes: >=200 mg/d L plus symptoms Blood Urea Nitrogen 20 10 - 20 mg/dL [facility] Creatinine 1.53(H) 0.80 - 1.50 mg/dL [facility] Sodium 142 135 - 145 mmol/L [facility] Potassium 4.5 3.5 - 5.0 mmol/L [facility] Comment: Please note: ??Patients with WBC >100,000 may have falsely elevated Potassium levels. ??For accurate Potassium quantification in these patients send serum separator tube (gold top) for subsequent determinations. ??Contact the Clinical Chemistry Laboratory if there are any questions. Chloride 102 98 - 107 mmol/L [facility] Carbon Dioxide 28 22 - 31 mmol/L [facility] Anion Gap 12 5 - 15 mmol/L [facility] Calcium 9.3 8.5 - 10.5 mg/dL [facility] Est Glomerular Filtration Rate 49(L) >=60 mL/min/1. 73 m?? [facility] Comment: The eGFR was calculated using the CKD-EPI equation. As with all creatinine based estimates of kidney function, eGFR values calculated with the CKD-EPI equation are not accurate in patients with acute kidney failure, extremes of body mass or the acutely ill. http://Novi/[facility] CITY[facility] eGFR 57(L) >=60 mL/min/1. 73 m?? [facility] Comment: The eGFR was calculated using the CKD-EPI equation. As with all creatinine based estimates of kidney function, eGFR values calculated with the CKD-EPI equation are not accurate in patients with acute kidney failure, extremes of body mass or the acutely ill. http://Novi/[facility] Blood specimen (specimen) 02/14/2019 3:29 PM EDT 02/14/2019 3:36 PM EDT Narrative Resulting Agency Comment Spec In Lab Ernie Garrett MD CHEMISTRY ORDERABLE S Performing Organization Address [facility]/ZIP Co de Phone Number [facility] [place] [address] * (ABNORMAL) Creatinine (02/14/2019 3:29 PM EDT) Creatinine 1.53(H) 0.80 - 1.50 mg/dL [facility] Est Glomerular Filtration Rate 49(L) >=60 mL/min/1.7 3 m?? [facility] Comment: The eGFR was calculated using the CKD-EPI equation. As with all creatinine based estimates of kidney function, eGFR values calculated with the CKD-EPI equation are not accurate in patients with acute kidney failure, extremes of body mass or the acutely ill. http://Novi/[facility] eGFR 57(L) >=60 mL/min/1.7 3 m?? [facility] Comment: The eGFR was calculated using the CKD-EPI equation. As with all creatinine based estimates of kidney function, eGFR values calculated with the CKD-EPI equation are not accurate in patients with acute kidney failure, extremes of body mass or the acutely ill. http://Novi/[facility] Blood specimen (specimen) 02/14/2019 3:29 PM EDT 02/14/2019 3:36 PM EDT Narrative Resulting Agency Comment Spec In Lab Nestor Leslie MD CHEMISTRY ORDERABLES Performing Organization Address City/[facility]/ZIP Co de [place] [address] documented in this encounter Visit Diagnoses Diagnosis Pre-op testing Preoperative examination, unspecified Renal artery stenosis Atherosclerosis of renal artery documented in this encounter Care Teams Nanoelectronics Engineer Relationship Specialty Start Date End Date Rohit Anderson MD [address] [facility] [address] [address] [place] [address] PCP - General General Internal Medicine 12/18/18 documented as of this encounter
--- OUTSIDE RECORDS SUMMARY | 2024-06-09 02:55 | XMS_ITS | Encounter Summary ---
Author Organization [facility] [place] [address] Care Team Providers Care Value Stream Leader Name Role Phone Rohit Anderson MD Primary Care Provider [phone] Encounter Details Date Type Department Care Team (Late st Contact Info) Description 03/08/2019 Ancillary Procedure Radiology Library at [facility] [place] [phone] Geovani Phan MD [facility] [place] [address] Social History Tobacco Use Types Packs/Day Years [...] PM EDT Office Visit [place] [address] Betzaida Cope APRN [facility] NEPHROLOGY [place], [place] [phone] 06/23/2024 2:00 PM EDT Appointment Non-Invasive [place] [address] Owen Correia MD [facility] [place] [address] documented as of this encounter Procedures Procedure Name Priority Date/Time Associated Diagnosis Comments FILM LIBRARY STORAGE ONLY CT CHEST Routine 03/08/2019 12:00 AM EDT documented in this encounter Results * Film Library- Storage Only CT Chest (03/08/2019 12:00 AM EDT) Narrative [facility] - 07/21/2019 7:36 PM EST This exam is auto-finalizing. It's purpose is for storage only. Geovani Phan MD G FILM LIBRARY ORD ERABLES [place] documented in this encounter Visit Diagnoses Not on filedocumented in this encounter Care Teams Value Stream Leader Relationship Specialty Start Date End Date Rohit Anderson MD [address] [facility] [address] [place] [address] PCP - General General Internal Medicine 12/18/18 documented as of this encounter
--- OUTSIDE RECORDS SUMMARY | 2024-06-09 02:55 | XMS_ITS | Encounter Summary ---
Author Organization [facility] [place] [address] Care Team Providers Care Twist Packer Name Role Phone Luther Garrison DO Primary Care Provider [phone] Reason for Visit * Reason Onset Date Comments Establish Care 07/14/2019 Encounter Details Date Type Department Care Team (Late st Contact Info) Description 07/14/2019 Telephone Family Medicine at [facility] [address] [place] [phone] Zenobia Caal Establish Care Social History Tobacco Use Types Packs/Day Years [...] encounter Miscellaneous Notes * Telephone Encounter - Jose Rowland - 07/17/2019 11:40 AM EST This speech writer called patient left message to establish care * Telephone Encounter - Zenobia Powell - 07/14/2019 3:20 PM EST Caller and Relationship (if other than patient-full name): patient Call Back Number: work(ask for patient)- [phone] Best Time to Call Back: any OK to Leave Message: yes Requested Site/Provider: Prefers male- not imperative Immediate Needs: N/a Comments: There is a referral in the referral tab. Patient is stating if no answer on work number, please call cell phone to leave a message [phone] documented in this encounter Plan of Treatment Upcoming Encounters Date Type Department Care Team (Late st Contact Info) Description 06/16/2024 4:00 PM EDT Office Visit [place] [address] Betzaida Cope APRN [facility] [place] [address] 06/23/2024 2:00 PM EDT Appointment Non[place] [address] Owen Correia MD [facility] [place] [address] documented as of this encounter Visit Diagnoses Not on filedocumented in this encounter Care Teams Twist Packer Relationship Specialty Start Date End Date Luther Garrison DO [facility] GENERAL [place] [address] PCP - General General Internal Medicine 09/01/1902/05 documented as of this encounter
--- OUTSIDE RECORDS SUMMARY | 2024-06-09 02:55 | XMS_ITS | Encounter Summary ---
[place] [address] Care Team Providers Care Bar Catcher Name Role Phone Luther Garrison DO Primary Care Provider [phone] Encounter Details Date Type Department Care Team (Late st Contact Info) Description 01/02/2020 Telephone Ne[place] [address] Anitra Sherman Social History Tobacco [...] * Telephone Encounter - Anitra Sherman - 01/02/2020 9:10 AM EDT Called Pt to verify apt on 12/31 with . Wanted to see if Pt would like to do telehealth or telephone call documented in this encounter Plan of Treatment Upcoming Encounters Date Type Department Care Team (Late st Contact Info) Description 06/16/2024 4:00 PM EDT Office Visit Ne[place] [address] Betzaida Cope W, APPLICATION DEVELOPER [facility] [place] [address] 06/23/2024 2:00 PM EDT Appointment Non-Invasive [place] [address] Owen Correia MD [facility] [place] [address] documented as of this encounter Visit Diagnoses Not on filedocumented in this encounter Care Teams Bar Catcher Relationship Specialty Start Date End Date Luther Garrison DO [facility] [place] [address] PCP - General General Internal Medicine 09/01/19 6/2 01/25 documented as of this encounter
--- OUTSIDE RECORDS SUMMARY | 2024-06-09 02:55 | XMS_ITS | Encounter Summary ---
Author Organization [facility] [place] [address] Care Team Providers Care Prosthetics Lab Technician Name Role Phone Luther Garrison DO Primary Care Provider [phone] Reason for Visit * Reason Comments Medication Refill Encounter Details Date Type Department Care Team (Late st Contact Info) Description 11/14/2020 Refill Cardiology at [address] [phone] Geovani Phan MD [facility] [place] [address] Medication Refill Social History Tobacco Use Types [...] EDT Office Visit Nephrology [place] [phone] Betzaida Cope APRN [facility] [place] [address] 06/23/2024 2:00 PM EDT Appointment Non[place] [address] Owen Correia MD [facility] [place] [address] documented as of this encounter Visit Diagnoses Diagnosis Atypical chest pain- Primary Other chest pain documented in this encounter Care Teams Prosthetics Lab Technician Relationship Specialty Start Date End Date Luther Garrison DO [facility] [place] [address] PCP - General General Internal Medicine 09/01/1902/05 documented as of this encounter
--- OUTSIDE RECORDS SUMMARY | 2024-06-09 02:55 | XMS_ITS | Encounter Summary ---
Author Organization [facility] [place] [address] Care Team Providers Care Kiln Car Repairer Name Role Phone Luther Garrison DO Primary Care Provider Reason for Visit * Auth/Cert Specialty Diagnoses / Procedures Referred By Contajnay t Referred To Contact Diagnoses Encounter for screening for malignant neoplasm of colon srceening Procedures PRO COLONOSCOPY, DIAGNOSTIC COLONOSCOPY, DIAGNOSTIC Referral ID Status Reason Start Date Expiration Date Visits Re quested Visits Authorized [id number] 1 1 Encounter Details Date Type Department Care Team (Late st Contact Info) Description 03/05/2020 1:45 PM EDT - 03/05/2020 2:45 PM EDT [place] [address] Sonny Mike MD [facility] [place] [address] COLONOSCOPY, DIAGNOSTIC (WRVU 3.26) Social History Tobacco Use Types Packs/Day Years [...] to be checked. Wednesday-Wednesday Same Day Endo [phone] Otherwise contact [phone] and ask to speak to the truck trailer final inspector superintendent distribution Follow up care is a oneil part [...] PM EDT Office Visit [place] [address] Betzaida Cope APRN [facility] [place] [address] 06/23/2024 2:00 PM EDT Appointment Non-Invasive [place] [phone] Owen Correia MD [facility] [place] [address] documented as of this encounter Procedures Procedure Name Priority Date/Time Associated Diagnosis Comments Colonoscopy, Diagnostic (92385) 03/05/2020 1:51 PM EDT srceening COLONOSCOPY Routine 03/05/2020 1:38 PM EDT documented in this encounter Results * COLONOSCOPY (03/05/2020 1:38 PM EDT) COLONOSCOPY [facility] Endoscopy Procedure Date: 03/05/2020 1:38 PM ? Patient Name: Moshe Castillo ? Date of : 1960 ? Age: 59 ? Order #: [id number] ? Instrument Name: [id number] ? Procedure: ? Colonoscopy Indications: ? Screening [...] preparation was evaluated using ? the BBPS ([place] Bowel Preparation ? Scale) with scores of: [...] MAR Action Action Date Dose Rate Site fentaNYL 50 mcg/mL multi-dose injection ONCE PRN, Starting on 03/05/20 at 1354, Until 03/05/20 at 1711, Intra-Operative (Intra-Procedure), Routine Given 03/05/2020 2:03 PM EDT 50 mcg Given 03/05/2020 2:00 PM EDT 50 mcg Given 03/05/2020 1:57 PM EDT 50 mcg lactated ringers infusion 100 mL/hr, Intravenous, CONTINUOUS, Starting on 03/05/20 at 1330, Until 03/05/20 at 1711, Endoscopy (Day of Procedure) midazolam (PF) (VERSED) multi-dose injection ONCE PRN, Starting on 03/05/20 at 1354, Until 03/05/20 at 1711, Intra-Operative (Intra-Procedure), Routine Given 03/05/2020 2:03 PM EDT 1 mg Given 03/05/2020 2:00 PM EDT 1 mg Given 03/05/2020 1:57 PM EDT 1 mg documented in this encounter Active and Recently Administered Medications Times are shown in EDT. Continuous Medication Order 03/03/2020 03/04/2020 03/05/2020 lactated ringers infusion 100 mL/hr, Intravenous, CONTINUOUS, Starting on 03/05/20 at 1330, Until 03/05/20 at 1711, Endoscopy (Day of Procedure) 1330 (Due) PRN Medication Order 03/03/2020 03/04/2020 03/05/2020 fentaNYL 50 mcg/mL multi-dose injection (CANCELED) ONCE PRN, Starting on Wed03/05/20 at 1354, Until Wed03/05/20 at 1711, Intra-Operative (Intra-Procedure), Routine 1354 (Given - Provid er: Arley Coffey RN)1357 (Given - Provider: Arley Coffey RN)1400 (Given - Provider: Arley Coffey RN)1403 (Given - Provider: Arley Coffey RN) midazolam (PF) (VERSED) multi-dose injection (CANCELED) ONCE PRN, Starting on Wed03/05/20 at 1354, Until Wed03/05/20 at 1711, Intra-Operative (Intra-Procedure), Routine 1354 (Given - Provid er: Arley Coffey RN)1357 (Given - Provider: Arley Coffey RN)1400 (Given - Provider: Arley Coffey RN)1403 (Given - Provider: Arley Coffey RN) documented in this encounter Care Teams Kiln Car Repairer Relationship Specialty Start Date End Date Luther Garrison DO [facility] [place] [address] PCP - General General Internal Medicine 09/[birth year]02[birth year]05 documented as of this encounter
--- OUTSIDE RECORDS SUMMARY | 2024-06-09 02:55 | XMS_ITS | Encounter Summary ---
Author Organization [facility] [place] [address] Care Team Providers Care Chairman And Ceo Name Role Phone Rohit Anderson MD Primary Care Provider [phone] Encounter Details Date Type Department Care Team (Late st Contact Info) Description 07/05/2019 Orders Only Cardiology at [address] [phone] Geovani Phan MD [facility] [place] [address] Renovascular hypertension Social History Tobacco Use Types [...] PM EDT Office Visit [place] [address] Betzaida Cope APRN [facility] [place] [address] 06/23/2024 2:00 PM EDT Appointment Non-[place] [address] Owen Correia MD [facility] [place] [address] documented as of this encounter Results * (ABNORMAL) Basic Metabolic Panel (non-fasting) (07/05/2019 5:56 PM EDT) Glucose 77 65 - 199 mg/dL [facility] Comment:Diabetes: >=200 mg/d L plus symptoms Blood Urea Nitrogen 17 10 - 20 mg/dL [facility] Creatinine 1.48 0.80 - 1.50 mg/dL [facility] Sodium 143 135 - 145 mmol/L [facility] Potassium 4.4 3.5 - 5.0 mmol/L [facility] Comment: Please note: ??Patients with WBC >100,000 may have falsely elevated Potassium levels. ??For accurate Potassium quantification in these patients send serum separator tube (gold top) for subsequent determinations. ??Contact the Clinical Chemistry Laboratory if there are any questions. Chloride 103 98 - 107 mmol/L [facility] Carbon Dioxide 28 22 - 31 mmol/L [facility] Anion Gap 12 5 - 15 mmol/L [facility] Calcium 9.3 8.5 - 10.5 mg/dL [facility] Est Glomerular Filtration Rate 51(L) >=60 mL/min/1. 73 m?? [facility] Comment: The eGFR was calculated using the CKD-EPI equation. As with all creatinine based estimates of kidney function, eGFR values calculated with the CKD-EPI equation are not accurate in patients with acute kidney failure, extremes of body mass or the acutely ill. http://anchor.travel/DHMCnkf eGFR 60 >=60 mL/min/1. 73 m?? [facility] Comment: The eGFR was calculated using the CKD-EPI equation. As with all creatinine based estimates of kidney function, eGFR values calculated with the CKD-EPI equation are not accurate in patients with acute kidney failure, extremes of body mass or the acutely ill. [email or web address].Anonymous You/DHMCnkf Blood specimen (specimen) 07/05/2019 5:56 PM EDT 07/05/2019 6:01 PM EDT Narrative Resulting Agency Comment Spec In Lab Geovani Phan MD CHEMISTRY ORDERABLES [facility] [place] [address] documented in this encounter Visit Diagnoses Diagnosis Renovascular hypertension Secondary renovascular hypertension, unspecified documented in this encounter Care Teams Chairman And Ceo Relationship Specialty Start Date End Date Rohit Anderson MD [address] [facility] [address] [place] [address] PCP - General General Internal Medicine 12/18/18 documented as of this encounter
--- OUTSIDE RECORDS SUMMARY | 2024-06-09 02:55 | XMS_ITS | Encounter Summary ---
[place] [address] Care Team Providers Care Senior Procurement Manager Name Role Phone Luther Garrison DO Primary Care Provider [phone] Encounter Details Date Type Department Care Team (Late st Contact Info) Description 12/14/2019 Telephone [place] [phone] Whitney Orr Social History Tobacco Use Types Packs/Day Years [...] encounter Miscellaneous Notes * Telephone Encounter - Whitney Orr - 12/14/2019 2:25 PM EDT Informed patient of canceled appt on 12/21 recall put into system to reschedule in the future documented in this encounter Plan of Treatment Upcoming Encounters Date Type Department Care Team (Late st Contact Info) Description 06/16/2024 4:00 PM EDT Office Visit Neph[place] [phone] Betzaida Cope, ENGINEER GAS PUMPING STATION [facility] [place] [address] 06/23/2024 2:00 PM EDT Appointment Non-Invasive [place] [phone] Owen Correia MD [facility] [place] [address] documented as of this encounter Visit Diagnoses Not on filedocumented in this encounter Care Teams Senior Procurement Manager Relationship Specialty Start Date End Date Luther Garrison DO [facility] [place] [address] PCP - General General Internal Medicine 09/[birth year]/1902/05 documented as of this encounter
--- OUTSIDE RECORDS SUMMARY | 2024-06-09 02:56 | XMS_ITS | Encounter Summary ---
[place] [address] Care Team Providers Care Front Of House Manager Name Role Phone Rohit Anderson MD Primary Care Provider [phone] Reason for Visit * Auth/Cert Specialty Diagnoses / Procedures Referred By Contjanay t Referred To Contact Diagnoses Chest pain Procedures EMERG[facility]BS[facility] Referral ID Status Reason Start Date Expiration Date Visits Re quested Visits Authorized [id number] 1 1 Encounter Details Date Type Department Care Team (Latest Contact Info) Description 12/19/2018 8:00 AM EDT - 12/19/2018 11:59 PM EDT Hospital Encounter Non-[place] [address] Discharge Disposition: Home Social History Tobacco Use [...] Sig Dispensed Refills Start Date End Date amLODIPine (NORVASC) 10 mg Tablet Take 1 tablet by mouth daily for 30 days. 30 tablet 12/19/2018 01/18/2019 lisinopril (PRINIVIL;ZESTRIL) 10 mg Tablet Take 1 tablet by mouth daily for 30 days. 30 tablet 12/19/2018 01/18/2019 acetaminophen (TYLENOL) 325 mg Tablet Take 2 tablets by mouth every 6 hours as needed for Pain or Fever. 90 tablet 1 12/01/2018 04/03/2019 docusate sodium (COLACE) 100 mg Capsule Take 1 capsule by mouth 2 times daily as needed for Constipation. 20 capsule 12/01/2018 12/20/2018 enoxaparin (LOVENOX) 80 mg/0.8 mL Syringe Inject 0.7 mLs subcutaneously 2 times daily. 60 each 5 12/01/2018 04/03/2019 hydrocortisone 1 % Cream Apply 1 each topically 2 times daily. 30 g 12/01/2018 01/20/2019 simethicone (MYLICON) 40 mg/0.6 mL Drops, Suspension Take 0.6 mLs by mouth every 6 hours as needed. 30 mL 12/01/2018 01/20/2019 ketoconazole (NIZORAL) 2 % cream Apply topically daily. 01/20/2019 documented as of this encounter Plan of Treatment Upcoming Encounters Date Type Department Care Team (Late st Contact Info) Description 06/16/2024 4:00 PM EDT Office Visit [place] [phone] Betzaida Cope W, [facility] [place] [address] 06/23/2024 2:00 PM EDT Appointment Non-[place]vasive [place] [phone] Owen Correia MD [facility] [place] [address] documented as of this encounter Procedures Procedure Name Priority Date/Time Associated Diagnosis Comments STRESS ECHO W CONTRAST W LMTD SPEC DOPP COLOR DOPP Routine 12/19/2018 9:06 AM EDT Renal artery stenosis Other forms of angina pectoris documented in this encounter Visit Diagnoses Not on filedocumented in this encounter Administered Medications Inactive Administered Medications - up to 3 most recent administrations Medication Order MAR Action Action Date Dose Rate Site perflutren lipid microspheres (DEFINITY) injection 1.5 mL 1.5 mL, Intravenous, ONCE PRN, 1 dose, Starting on Wed12/19/18 at 0906, Until Wed12/19/18 at 0845, Other, for enhancement of sub-optimal echo images, Echo Lab (Intra-Procedure), Routine Given 12/19/2018 8:45 AM EDT 1.5 mLs documented in this encounter Care Teams Front Of House Manager Relationship Specialty Start Date End Date Rohit Anderson MD [address] [facility] [address] [place] [address] PCP - General General Internal Medicine 12/18/18 documented as of this encounter
--- OUTSIDE RECORDS SUMMARY | 2024-06-09 02:56 | XMS_ITS | Encounter Summary ---
[place] [address] Care Team Providers Care Supervisor Shuttle Veneering Name Role Phone Rohit Anderson MD Primary Care Provider [phone] Encounter Details Date Type Department Care Team (Late st Contact Info) Description 01/16/2019 Telephone Nephrology [place] [phone] Doreen Cowart, RN Social History Tobacco Use Types Packs/Day [...] encounter Miscellaneous Notes * Telephone Encounter - Doreen Cowart RN - 01/16/2019 12:47 PM EDT S/O: Call from Moshe in regard to cardiology appointment. He was concerned that the planner/scheduler didn't know that he was going to have a Zio patch placed. I discussed with Moshe that the referral was placed to consult, test and treat so that Cardiology could evaluate him, order what testing they felt was needed and then treat any issues that they found. We would not limit Cardiology to only placing a Zio patch as there may be other testing Cardiology feels would better help them identify issues. documented in this encounter Plan of Treatment Upcoming Encounters Date Type Department Care Team (Late st Contact Info) Description 06/16/2024 4:00 PM EDT Office Visit Nephrology [place] [phone] Betzaida Cope APRN [facility] [place] [address] 06/23/2024 2:00 PM EDT Appointment Non-Invasive [place] [phone] Owen Correia MD [facility] [place] [address] documented as of this encounter Visit Diagnoses Not on filedocumented in this encounter Care Teams Supervisor Shuttle Veneering Relationship Specialty Start Date End Date Rohit Anderson MD [address] [place] [address] [address] [place] [address] PCP - General General Internal Medicine 12/18/18 documented as of this encounter
--- OUTSIDE RECORDS SUMMARY | 2024-06-09 02:56 | XMS_ITS | Encounter Summary ---
[place] [address] Care Team Providers Care Clinical Exercise Specialist Name Role Phone Rohit Anderson MD Primary Care Provider [phone] Encounter Details Date Type Department Care Team (Late st Contact Info) Description 01/06/2019 Telephone [place] [phone] Doreen Cowart, CO[place] Social History Tobacco Use Types Packs/Day Years [...] Telephone Encounter - Doreen Cowart RN - 01/06/2019 10:39 AM EDT S/O: Received e-mail from [facility] regarding message left by patient's . Patient is not active in the CKD clinic, but LM for patient to call [facility] to assist with questions documented in this encounter Plan of Treatment Upcoming Encounters Date Type Department Care Team (Late st Contact Info) Description 06/16/2024 4:00 PM EDT Office Visit [place] [phone] Betzaida Cope APRN [facility] [place] [address] 06/23/2024 2:00 PM EDT Appointment Non-Invasive Cardiology Lab [facility] [place] [address] Owen Correia MD [facility] [place] [address] documented as of this encounter Visit Diagnoses Not on filedocumented in this encounter Care Teams Clinical Exercise Specialist Relationship Specialty Start Date End Date Rohit Anderson MD [address] [facility] [address] [place] [address] PCP - General General Internal Medicine 12/18/18 documented as of this encounter
--- OUTSIDE RECORDS SUMMARY | 2024-06-09 02:56 | XMS_ITS | Encounter Summary ---
[place] [address] Care Team Providers Care Production Control Supervisor Name Role Phone Sonal Sorensen APRN Primary Care Provider [phone] Reason for Referral * Diagnostic Test (Routine) - Closed Specialty Diagnoses / Procedures Referred By Contac t Referred To Contact Radiology Diagnoses Renal artery stenosis Procedures NM Renal, Anatomic Scan NM Renal w Function Study Karolyn Nicholson MD [facility] [place] [address] [place] [address] Referral ID Status Reason Start Date Expiration Date V isits Requested Visits Authorized [id number] Closed Specialty Service Requested 12/01/2018 12/01/2019 2 2 Reason for Visit * Diagnostic Test (Routine) - Closed Specialty Diagnoses / Procedures Referred By Contac t Referred To Contact Radiology Diagnoses Renal artery stenosis Procedures NM Renal, Anatomic Scan NM Renal w Function Study Karolyn Nicholson MD [facility] [place] [address] [place] [address] Referral ID Status Reason Start Date Expiration Date V isits Requested Visits Authorized [id number] Closed Specialty Service Requested 12/01/2018 12/01/2019 2 2 Encounter Details Date Type Department Care Team (Latest Contact Info) Description 12/05/2018 9:48 AM EDT - 12/05/2018 9:49 AM EDT Hospital Encounter [place] [address] Renal artery stenosis Discharge Disposition: Home Social History [...] Sig Dispensed Refills Start Date End Date acetaminophen (TYLENOL) 325 mg Tablet Take 2 tablets by mouth every 6 hours as needed for Pain or Fever. 90 tablet 1 12/01/2018 04/03/2019 amLODIPine (NORVASC) 5 mg Tablet Take 1 tablet by mouth daily. 90 tablet 3 12/02/2018 12/19/2018 docusate sodium (COLACE) 100 mg Capsule Take [...] PM EDT Office Visit [place] [address] Betzaida Cope, SEWING MACHINE OPERATOR ZIPPER [facility] [place] [address] 06/23/2024 2:00 PM EDT Appointment [place] [address] Owen Correia MD [facility] [place] [address] documented as of this encounter Procedures Procedure Name Priority Date/Time Associated Diagnosis Comments NM RENAL SCAN ANATOMIC(DMSA) Routine 12/05/2018 12:20 PM EDT Renal artery stenosis documented in this encounter Results * NM Renal, Anatomic Scan (12/05/2018 12:20 PM EDT) Anatomical Region Laterality Modality Nuclear Medicine Impressions 12/05/2018 4:34 PM EDT Nonfunctioning left kidney. I have personally reviewed the image(s) and the residents interpretation and agree with the findings, Waldo Doherty at 12/05/2018 4:34 PM Thank you for letting us participate in the care of this patient. For questions regarding this report, please contact the number below. ? Narrative 12/05/2018 4:34 PM EDT EXAMINATION: NM RENAL, ANATOMIC SCAN CLINICAL HISTORY: left renal artery stenosis, unclear utility of arterial stenting or other revascularization, please assess functional mass of left kidney. To be performed in AM prior to arteriogram on 12/09 TECHNIQUE: Two hours following the intravenous administration of 5.4 mCi Tc-99m DMSA, planar images of the kidneys were obtained in the anterior, posterior, COMPARISON: None. FINDINGS: Right kidney has a normal configuration and homogeneous tracer uptake. No visible tracer uptake above adjacent soft tissue background is seen in the left kidney. Procedure Note Waldo Doherty MD - 12/05/2018 EXAMINATION: NM RENAL, ANATOMIC SCAN CLINICAL HISTORY: left renal artery stenosis, unclear utility ofarterial stenting or other revascularization, please assess functional mass ofleft kidney. To be performed in AM prior to arteriogram on 12/09 TECHNIQUE: Two hours following the intravenous administration of 5.4 mCiTc-99m DMSA, planar images of the kidneys were obtained in the anterior,posterior, COMPARISON: None. FINDINGS: Right kidney has a normal configuration and homogeneous tracer uptake.No visible tracer uptake above adjacent soft tissue background is seen in theleft kidney. IMPRESSION Nonfunctioning left kidney. I have personally reviewed the image(s) and the residents interpretationand agree with the findings, Waldo Doherty at 12/05/2018 4:34 PM Thank you for letting us participate in the care of this patient. Forquestions regarding this report, please contact the number below. Parth Frias MD [facility] documented in this encounter Visit Diagnoses Diagnosis Renal artery stenosis Atherosclerosis of renal artery documented in this encounter Administered Medications Inactive Administered Medications - up to 3 most recent administrations Medication Order MAR Action Action Date Dose Rate Site technetium (Tc-99m) DMSA injection 5.4 mCi 5.4 mCi, Intravenous, ONCE PRN, 1 dose, Starting on Wed12/05/18 at 1010, Until Wed12/05/18 at 1010, Per Protocol, Routine Given 12/05/2018 10:10 AM EDT 5.4 mCi documented in this encounter Care Teams Production Control Supervisor Relationship Specialty Start Date End Date Sonal Sorensen, SEWING MACHINE OPERATOR ZIPPER PCP - General Family Medicine 02/21/18 12/17/18 documented as of this encounter
--- OUTSIDE RECORDS SUMMARY | 2024-06-09 02:56 | XMS_ITS | Encounter Summary ---
[place] [address] Care Team Providers Care Fence Installer Foreman Name Role Phone Rohit Anderson MD Primary Care Provider [phone] Encounter Details Date Type Department Care Team (Late st Contact Info) Description 01/06/2019 Telephone Ne[place] [phone] Doreen Cowart, RN Social History Tobacco Use [...] Encounter - Doreen Cowart RN - 01/06/2019 4:32 PM EDT S/O: Call from patient regarding messages they had left. She states that they called Case Management because they wanted someone to help coordinate for them a consult to Cardiology to rule out afib as the 10 day patch is not an option through PCP and to discuss new onset of symptoms with Dr Garrett. 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 Discussed with Katrina that the renal US in November showed no stenosis on the right, and that he is on anticoagulation with Lovenox so even if he was in afib, the risk of clots is low. However, if he was symptomatic and there was concern for a new infarct that he would need to be evaluated in the emergency room. Katrina seemed not as concerned about the Lisinopril and Creatinine as the message I received implied, however, I did explain that we expect a slight increase in creatininewith the medication and a Creatinine rise from 1.3 to 1.45 with a K of 4.2 would not be enough for me to recommend stopping the medication. She reported that they had hoped stopping the medication would relieve his symptoms, but it has not. Again reiterated that if he remains symptomatic that he should be evaluated. P: Above sent to Dr Garrett for review and recommendation. Will follow up with Moshe and Katrina on 01/10/19 once I have had a conversation with Dr Garrett regarding his plan moving forward documented in this encounter Plan of Treatment Upcoming Encounters Date Type Department Care Team (Late st Contact Info) Description 06/16/2024 4:00 PM EDT Office Visit Ne[place] [address] Betzaida Cope APRN [facility] [place] [address] 06/23/2024 2:00 PM EDT Appointment Non-Invasive [place] [address] Owen Correia MD [facility] [place] [address] documented as of this encounter Visit Diagnoses Not on filedocumented in this encounter Care Teams Fence Installer Foreman Relationship Specialty Start Date End Date Rohit Anderson MD [address] [facility] [address] [place] [address] PCP - General General Internal Medicine 12/18/18 documented as of this encounter
--- OUTSIDE RECORDS SUMMARY | 2024-06-09 02:56 | XMS_ITS | Encounter Summary ---
Author Organization [facility] [place] [address] Care Team Providers Care Personnel Security Assistant Name Role Phone Zulema Sorensenbia [place] APRN Primary Care Provider [phone] Reason for Visit * Reason Onset Date Comments Appointment 12/07/2018 Encounter Details Date Type Department Care Team (Late st Contact Info) Description 12/07/2018 Telephone [place] [address] Shashank Castellano MD [facility] [place] [address] Appointment Social History Tobacco Use Types Packs/Day [...] encounter Miscellaneous Notes * Telephone Encounter - Charito Matos - 12/07/2018 3:29 PM EDT Received a call from [facility] about Moshe Castillo. The patient wanted to cancel Hospital Check and IR procedure because it was no longer needed. Dr. Castellano has been emailed regarding this patient. documented in this encounter Plan of Treatment Upcoming Encounters Date Type Department Care Team (Late st Contact Info) Description 06/16/2024 4:00 PM EDT Office Visit Ne[place] [address] Betzaida Cope APRN [facility] [place] [address] 06/23/2024 2:00 PM EDT Appointment Non-Invasive [place] [phone] Owen Correia MD [facility] [place] [address] documented as of this encounter Visit Diagnoses Not on filedocumented in this encounter Care Teams Personnel Security Assistant Relationship Specialty Start Date End Date Soanl Sorensen APRN PCP - General Family Medicine 02/21/18 12/17/18 documented as of this encounter
--- OUTSIDE RECORDS SUMMARY | 2024-06-09 02:56 | XMS_ITS | Encounter Summary ---
Author Organization [facility] Address [facility] [place] [address] Care Team Providers Care Net Manager Name Role Phone Rohit Anderson MD Primary Care Provider [phone] Reason for Visit * Reason Comments Tachycardia * Auth/Cert Specialty Diagnoses / Procedures Referred By Contac t Referred To Contact Diagnoses Chest pain Procedures EMERGENCY OBSVO Referral ID Status Reason Start Date Expiration Date Visits Re quested Visits Authorized [id number] 1 1 Encounter Details Date Type Department Care Team (Late st Contact Info) Description 12/18/2018 6:31 PM EDT - 12/19/2018 11:54 AM EDT [place] [address] Palak Serrano MD [facility] [place] [address] Deedee Edwards MD [facility] [place] [address] Beau Welch DO [facility] [place] [address] Renal artery stenosis; Other forms of angina pectoris Discharge Disposition: Home Social History Tobacco Use [...] Sign Reading Time Taken Comments Blood Pressure 120/87 12/19/2018 11:37 AM EDT Pulse 66 12/19/2018 11:37 AM EDT Temperature 37.2 ??C (99 ??F) 12/19/2018 11:37 AM EDT Respiratory Rate 17 12/19/2018 11:37 AM EDT Oxygen Saturation 97% 12/19/2018 11:37 AM EDT Inhaled Oxygen Concentration - - Weight - - Height - - Body Mass Index - - documented in this encounter Discharge Instructions * Discharge Instructions* Rafael Menezes PA - 12/19/2018 10:56 AM EDT Follow up with your primary care provider within the next three days for reevaluation and follow upregarding your chest discomfort and stress test results. Nephrology recommendations: Have a repeat BMP done next week and send results to nephrology. Pleaseincrease your dose of amlodipine to 10 mg and start taking lisinopril 10 mg daily. Return to the emergency department if you have any of the symptoms we discussed including but not limited to: worsening or changing of current symptoms, chest pain, jaw pain, neck pain, shortness of breath, difficulty breathing, nausea, vomiting. * Attachments The following attachments cannot be sent through Care Everywhere. * Chest Pain (Emirati) documented in this encounter Medications at Time [...] daily. 01/20/2019 documented as of this encounter Progress Notes * Sotero Horne RN - 12/19/2018 11:49 AM EDT AVS reviewed with patient, all questions answered. All belongings with patient. Pt. Left with . documented in this encounter ED Notes * Rafael Menezes PA - 12/19/2018 11:54 AM EDT Patient Name: Moshe Castillo Patient Age: 58 y.o. Birthdate: 1960 Admit date: 12/18/2018 Attending Physician: No att. providers found CLINICAL DECISION UNIT - DISCHARGE SUMMARY Patient Name: Moshe Castillo Patient Age: 58 y.o. Birthdate: 1960 Admit date: 12/18/2018 Discharge date and time: 12/19/2018 Attending Physician: No att. providers found Discharge Diagnoses: Chest pain of unclear etiology. ACS ruled out given serial troponins and EKGs. Low suspicion for significant stable CAD given stress testing results. Other causes of chest pain such as PE, aortic dissection, PNA considered and felt to be very unlikely. Given borderline ECG findings during stress patient agrees to follow-up with his primary care provider within the next 2-3 days and possible see cardiology. It is reassuring that he had no wall motion abnormalities on the echocardiogram. Patient is currently chest pain-free with 2- troponins and serial EKGs without ischemia. History of Presentation (from ED Note): Moshe Castillo is a 58 y.o. male with a history of recently diagnosed renal artery stenosis who presents to the Emergency Department for concern of palpitations and chest pressure. Patient was recently hospitalized for flank pain and diagnosed with severe renal artery stenosis. He was discharged on . Please see the discharge summary on that date for complete details of that hospitalization. He was feeling well after that hospitalization and was discharged on amlodipine and Lovenox. He is recently been changing his amlodipine dosing due to hypertension at night. This morning he noticedsome mild chest pressure that radiated up into his neck. This afternoon he noticed an episode of tachycardia associated with some dizziness and lightheadedness which prompted evaluation in the emergency department. He denies any other recent fevers, chills, shortness of breath, cough, abdominal pain, nausea, vomiting, urinary complaints, constipation/diarrhea or peripheral numbness/weakness/swelli ng. He states he has had similar episodes of chest palpitations in the past, although the pressure feeling is new for him. On evaluation in the ED the patient remained chest discomfort at approximately 1/10. Exam at Time of Discharge: BP 120/87 (BP Location (NBP): Right arm, Patient Position: Sitting) Pulse 66 Temp 37.2 ??C (99 ??F) (Oral) Resp 17 SpO2 97% Constitutional: oriented to person, place, and time. Appears well-developed and well-nourished. No distress. Head: Normocephalic and atraumatic. Eyes: EOM are normal. Neck: Normal range of motion. Cardiovascular: Normal rate and regular rhythm. Pulmonary/Chest: Effort normal and breath sounds normal. Musculoskeletal: Exhibits no edema or tenderness. Neurological: Alert and oriented to person, place, and time. Skin: Skin is warm and dry. Emergency Department/Clinical Decision Unit Course: H&P Labs reviewed CXR ekg monitor Evaluation by nephrology Summary of Important Studies and Lab Data: Recent Results (from the past 72 hour(s)) EKG 12 Lead Result Value Ref Range Ventricular rate 71 BPM Atrial Rate 71 BPM P-R Interval 132 ms QRS Duration 86 ms Q-T Interval 418 ms QTC Calculated (Bezet) 454 ms Calculated P [place] 67 degrees Calculated R [place] 64 degrees Calculated T [place] 49 degrees INTERPRETATION Normal sinus rhythm Possible Left atrial enlargement Nonspecific ST abnormality When compared with ECG of 27-NOV-2018 02:10, No significant change was found Confirmed by MD Cortez Michael ([id number]) on 12/19/2018 8:12:53 AM Basic Metabolic Panel (non-fasting) Result Value Ref Range Glucose Lvl 113 65 - 199 mg/dL BUN 14 10 - 20 mg/dL Creatinine 1.30 0.80 - 1.50 mg/dL Sodium 140 135 - 145 mmol/L Potassium 4.2 3.5 - 5.0 mmol/L Chloride 99 98 - 107 mmol/L CO2 28 22 - 31 mmol/L Anion Gap 13 5 - 15 mmol/L Calcium 9.8 8.5 - 10.5 mg/dL eGFR 60 >=60 mL/min/1.73 m?? eGFR 70 >=60 mL/min/1.73 m?? Troponin Result Value Ref Range Troponin-T <0.01 0.00 - 0.00 ng/mL Hemogram Result Value Ref Range WBC 4.4 4.0 - 9.5 x10(3)/mcL RBC 4.87 4.58 - 5.54 x10(6)/mcL Hemoglobin 14.5 13.7 - 16.5 gm/dL Hematocrit 43.0 40.5 - 48.5 % MCV 88.3 82.9 - 93.1 fL MCH 29.8 27.5 - 32.1 pg MCHC 33.7 32.0 - 35.7 gm/dL Platelets 243 145 - 357 x10(3)/mcL RDWSD 38.5 36.0 - 45.0 fL RDWCV 11.9 11.4 - 13.8 % MPV 9.8 7.6 - 12.9 fL nRBC % Auto 0.0 % nRBC Abs Auto 0.000 0.000 - 0.000 x10(3)/mcL Differential, Automated Result Value Ref Range Neutrophils % 57.0 % Neutr Abs (ANC) 2.49 1.70 - 6.10 x10(3)/mcL Lymphocytes % 28.4 % Lymphocytes Abs 1.2 0.9 - 3.2 x10(3)/mcL Monocytes % 10.3 % Monocyte Abs 0.4 0.3 - 0.9 x10(3)/mcL Eosinophils % 3.0 % Eosinophils Abs 0.1 0.0 - 0.4 x10(3)/mcL Basophils % 1.1 % Basophils Abs 0.0 0.0 - 0.1 x10(3)/mcL Immature Gran % 0.20 % [place] Gran Abs 0.01 0.00 - 0.04 x10(3)/mcL Blue Tube HOLD Result Value Ref Range Blue Hold Sample in lab. Gold Tube HOLD Result Value Ref Range Gold Hold Sample in lab. Troponin Result Value Ref Range Troponin-T <0.01 0.00 - 0.00 ng/mL EKG 12 Lead Result Value Ref Range Ventricular rate 61 BPM Atrial Rate 61 BPM P-R Interval 148 ms QRS Duration 88 ms Q-T Interval 456 ms QTC Calculated (Bezet) 459 ms Calculated P [place] 70 degrees Calculated R [place] 66 degrees Calculated T [place] 58 degrees INTERPRETATION Normal sinus rhythm Possible Left atrial enlargement Nonspecific ST and T wave abnormality When compared with ECG of 18-DEC-2018 18:29, (unconfirmed) No significant change was found Confirmed by MD Diego, Sotero ([id number]) on 12/19/2018 8:13:21 AM Echocardiogram Stress (Treadmill) Result Value Ref Range EF 65 CXR Impression: NO RADIOGRAPHIC EVIDENCE OF ACTIVE CARDIOPULMONARY DISEASE. Treadmill stress 1. BASELINE ECHO: There is normal global [...] echo images. Borderline positive ECG for ischemia. Pending Studies and Lab Data: None Discharge Condition: stable Discharge to: Home Discharge Medications: Your Medications New Medications Dose Details lisinopril 10 mg Tab Commonly known as: PRINIVIL;ZESTRIL Take 1 tablet by mouth daily for 30 days. 10 mg Quantity: 30 tablet Refills: 0 Continued medications with new dosing Dose Details amLODIPine 10 mg Tab Commonly known as: NORVASC Take 1 tablet by mouth daily for 30 days. What changed: ?? medication strength ?? how much to take 10 mg Quantity: 30 tablet Refills: 0 UNREVIEWED medications - Discuss With Your Provider Dose Details acetaminophen 325 mg Tab Commonly known as: TYLENOL Take 2 tablets by mouth every 6 hours as needed for Pain or Fever. 650 mg Quantity: 90 tablet Refills: 1 docusate sodium 100 mg Cap Commonly known as: COLACE Take 1 capsule by mouth 2 times daily as needed for Constipation. 100 mg Quantity: 20 capsule Refills: 0 enoxaparin 80 mg/0.8 mL Syrg Commonly known as: LOVENOX Inject 0.7 mLs subcutaneously 2 times daily. 70 mg Quantity: 60 each Refills: 5 hydrocortisone 1 % Crea Apply 1 each topically 2 times daily. 1 each Quantity: 30 g Refills: 0 ketoconazole 2 % Crea Commonly known as: NIZORAL Apply topically daily. Refills: 0 simethicone 40 mg/0.6 mL Drps Commonly known as: Mylicon Take 0.6 mLs by mouth every 6 hours as needed. 40 mg Quantity: 30 mL Refills: 0 Updated Allergies/ADRs: Allergies Allergen Reactions ??? Pseudafen [Pseudoephedrine Hcl] Future Appointments and Orders Future Appointments and Orders Future Appointments Provider Department Dept Phone 12/20/2018 10:00 AM Ernie Garrett MD Nephrology Hypertension at [place] Arrive at: [facility] [phone] 02/25/2021 4:00 PM Michael Arellano MD Dermatology at [place] [phone] General Instructions Follow up with your primary care provider within the next three days for reevaluation and follow upregarding your chest discomfort and stress test results. Nephrology recommendations: Have a repeat BMP done next week and send results to nephrology. Pleaseincrease your dose of amlodipine to 10 mg and start taking lisinopril 10 mg daily. Return to the emergency department if you have any of the symptoms we discussed including but not limited to: worsening or changing of current symptoms, chest pain, jaw pain, neck pain, shortness of breath, difficulty breathing, nausea, vomiting. I have asked Dr. Demarco to see this patient today. For questions regarding this document or issues relating to this admission, please contact the Clinical Decision Unit through the [facility] [place] [facility] . Rafael Menezes PA 12/19/18 1649 * Beau Welch DO - 12/19/2018 11:54 AM EDT Patient Name: Moshe Castillo Patient Age: 58 y.o. Birthdate: 1960 Admit date: 12/18/2018 Attending Physician: No att. providers found Brief Sign Out Note I have accepted care of the patient from the prior treatment team. Please see ED notes for more details. HPI: Moshe Castillo is a 58 y.o. who presents to the ED for CP, sweating episode and elevated BP in setting of DON. I have reviewed the nursing notes, vital signs and labs. Patient Vitals for the past 24 hrs: BP Temp Temp src Pulse Resp SpO2 12/19/18 1137 120/87 37.2 ??C (99 ??F) Oral 66 17 97 % 12/19/18 0910 119/85 36.7 ??C (98 ??F) Oral -- 18 98 % 12/19/18 0426 (!) 145/92 -- -- 58 17 97 % 12/19/18 0100 (!) 145/97 -- -- 59 29 95 % 12/18/187 (!) 144/93 36.8 ??C (98.2 ??F) Oral 67 14 98 % 12/18/182099 -- -- -- 71 17 -- 12/18/181999 (!) 136/94 -- -- 67 10 100 % 12/18/18 190 (!) 153/97 -- -- 63 16 100 % 12/18/18 1837 (!) 154/103 -- -- 71 16 100 % 12/18/18 182 (!) 150/100 37.1 ??C (98.8 ??F) Oral 83 18 100 % Recent Results (from the past 24 hour(s)) Basic Metabolic Panel (non-fasting) Result Value Ref Range Glucose Lvl 113 65 - 199 mg/dL BUN 14 10 - 20 mg/dL Creatinine 1.30 0.80 - 1.50 mg/dL Sodium 140 135 - 145 mmol/L Potassium 4.2 3.5 - 5.0 mmol/L Chloride 99 98 - 107 mmol/L CO2 28 22 - 31 mmol/L Anion Gap 13 5 - 15 mmol/L Calcium 9.8 8.5 - 10.5 mg/dL eGFR 60 >=60 mL/min/1.73 m?? eGFR 70 >=60 mL/min/1.73 m?? Troponin Result Value Ref Range Troponin-T <0.01 0.00 - 0.00 ng/mL Hemogram Result Value Ref Range WBC 4.4 4.0 - 9.5 x10(3)/mcL RBC 4.87 4.58 - 5.54 x10(6)/mcL Hemoglobin 14.5 13.7 - 16.5 gm/dL Hematocrit 43.0 40.5 - 48.5 % MCV 88.3 82.9 - 93.1 fL MCH 29.8 27.5 - 32.1 pg MCHC 33.7 32.0 - 35.7 gm/dL Platelets 243 145 - 357 x10(3)/mcL RDWSD 38.5 36.0 - 45.0 fL RDWCV 11.9 11.4 - 13.8 % MPV 9.8 7.6 - 12.9 fL nRBC % Auto 0.0 % nRBC Abs Auto 0.000 0.000 - 0.000 x10(3)/mcL Differential, Automated Result Value Ref Range Neutrophils % 57.0 % Neutr Abs (ANC) 2.49 1.70 - 6.10 x10(3)/mcL Lymphocytes % 28.4 % Lymphocytes Abs 1.2 0.9 - 3.2 x10(3)/mcL Monocytes % 10.3 % Monocyte Abs 0.4 0.3 - 0.9 x10(3)/mcL Eosinophils % 3.0 % Eosinophils Abs 0.1 0.0 - 0.4 x10(3)/mcL Basophils % 1.1 % Basophils Abs 0.0 0.0 - 0.1 x10(3)/mcL Immature Gran % 0.20 % [place] Gran Abs 0.01 0.00 - 0.04 x10(3)/mcL Blue Tube HOLD Result Value Ref Range Blue Hold Sample in lab. Gold Tube HOLD Result Value Ref Range Gold Hold Sample in lab. Troponin Result Value Ref Range Troponin-T <0.01 0.00 - 0.00 ng/mL Exam: NAD, RRR, CTAB, no pitting edema Assessment: -DON: creatinine at his baseline, seen by nephrology and cleared -Chest pain - Stress did not show wall motion abnormality, some questionable changes, but asymptomatic without CP or SOB beyond that expected. Pain free 12 hours Plan: -Discharge, follow up with primary doctor for reassessment and possible outpt referral or cath if indicated. Beau Welch DO 12/19/18 1422 * Kajal Echavarria - 12/19/2018 9:04 AM EDT Pt returned from treadmill stress * Kajal Echavarria - 12/19/2018 8:05 AM EDT Pt gone to treadmill stress via w/c with Lapel Baster * Rosario Shoemaker - 12/18/2018 7:01 PM EDT ED Resident Note Moshe Castillo is an 58 y.o. male who presents to the ED with: Chief Complaint Patient presents with ??? Tachycardia HPI Moshe Castillo is a 58 y.o. male with a history of recently diagnosed renal artery stenosis who presents to the Emergency Department for concern of palpitations and chest pressure. Patient was recently hospitalized for flank pain and diagnosed with severe renal artery stenosis. He was discharged on . Please see the discharge summary on that date for complete details of that hospitalization. He was feeling well after that hospitalization and was discharged on amlodipine and Lovenox. He is recently been changing his amlodipine dosing due to hypertension at night. This morning he noticedsome mild chest pressure that radiated up into his neck. This afternoon he noticed an episode of tachycardia associated with some dizziness and lightheadedness which prompted evaluation in the emergency department. He denies any other recent fevers, chills, shortness of breath, cough, abdominal pain, nausea, vomiting, urinary complaints, constipation/diarrhea or peripheral numbness/weakness/swelli ng. He states he has had similar episodes of chest palpitations in the past, although the pressure feeling is new for him. On evaluation in the ED the patient remained chest discomfort at approximately 1/10. Allergies Allergen Reactions ??? Pseudafen [Pseudoephedrine Hcl] Current Facility-Administered Medications: ??? [START ON 12/19/2018] amLODIPine (NORVASC) tablet 5 mg, 5 mg, Oral, Daily, Deedee Edwards MD ??? enoxaparin (LOVENOX) injection 70 mg, 70 mg, Subcutaneous, BID, Deedee Edwards MD Current Outpatient Medications: ??? acetaminophen (TYLENOL) 325 mg Tablet, Take 2 tablets by mouth every 6 hours as needed for Painor Fever., Disp: 90 tablet, Rfl: 1 ??? amLODIPine (NORVASC) 5 mg Tablet, Take 1 tablet by mouth daily., Disp: 90 tablet, Rfl: 3 ??? docusate sodium (COLACE) 100 mg Capsule, Take 1 capsule by mouth 2 times daily as needed for Constipation., Disp: 20 capsule, Rfl: 0 ??? enoxaparin (LOVENOX) 80 mg/0.8 mL Syringe, Inject 0.7 mLs subcutaneously 2 times daily., Disp: 60 each, Rfl: 5 ??? hydrocortisone 1 % Cream, Apply 1 each topically 2 times daily., Disp: 30 g, Rfl: 0 ??? simethicone (MYLICON) 40 mg/0.6 mL Drops, Suspension, Take 0.6 mLs by mouth every 6 hours as needed., Disp: 30 mL, Rfl: 0 ??? ketoconazole (NIZORAL) 2 % cream, Apply topically daily., Disp: , Rfl: History reviewed. No pertinent past medical history. Review of Systems: 10 point review of systems performed and negative except as noted in the HPI Physical Exam: Patient Vitals for the past 24 hrs: BP Temp Temp src Pulse Resp SpO2 12/18/18 2257 (!) 144/93 36.8 ??C (98.2 ??F) Oral 67 14 98 % 12/18/18 2100 -- -- -- 71 17 -- 12/18/18 2000 (!) 136/94 -- -- 67 10 100 % 12/18/18 1900 (!) 153/97 -- -- 63 16 100 % 12/18/18 1837 (!) 154/103 -- -- 71 16 100 % 12/18/18 1821 (!) 150/100 37.1 ??C (98.8 ??F) Oral 83 18 100 % Physical Exam Constitutional: He is oriented to person, place, and time. He appears well- developed and well-nourished. No distress. HENT: Mouth/Throat: Oropharynx is clear and moist. Eyes: Conjunctivae are normal. Neck: Neck supple. Cardiovascular: Normal rate, regular rhythm, normal heart sounds and intact distal pulses. Pulmonary/Chest: Effort normal and breath sounds normal. No respiratory distress. He has no wheezes. He has no rales. Abdominal: Soft. Bowel sounds are normal. He exhibits no distension. There is no tenderness. There is no rebound and no guarding. No CVA tenderness Musculoskeletal: Normal range of motion. He exhibits no edema. Neurological: He is alert and oriented to person, place, and time. No cranial nerve deficit. Skin: Skin is warm and dry. He is not diaphoretic. Psychiatric: He has a normal mood and affect. Nursing note and vitals reviewed. Labs Reviewed CBC (WITH DIFF) BASIC METABOLIC PANEL (NON-FASTING) TROPONIN HEMOGRAM DIFFERENTIAL, AUTOMATED BLUE TUBE HOLD GOLD TUBE HOLD TROPONIN TROPONIN ED Course and MDM - Patient seen under the supervision of PALAK Ronquillo - Medications, allergies and past medical history reviewed Assessment: 58 y.o. male with recently diagnosed renal artery stenosis who presents with chest painand tachycardia. Concerns in the patient include ACS, dysrhythmia, electrolyte abnormality, as well as complicationswith his recently diagnosed completely stenotic left kidney. Other considerations including pneumonia, pneumothorax, aortic dissection were considered but were not consistent with the patient's history and physical exam. Patient was treated with 324 of aspirin. The patient's EKG showed sinus rhythm without obvious ischemic or metabolic changes. His initial troponin was negative, which in the setting of several hours of symptoms makes an NSTEMI less likely. The patient's chest x-ray showed no signs of consolidation, pulmonary edema or pleural effusions. The patient's lab work showed no acute metabolic abnormalities. His troponin has been consistently downtrending since discharge and is currently at 1.30. Given the patient's concerning atherosclerotic history, he will be admitted to the CDU for further evaluation. The nephrology service was consulted regarding his ongoing issues with hypertension. They will see him in the morning. The patient remained hemodynamically stable and without further complaints for the remainder of histime in the emergency department. Please see CDU notes for further clinical course and ultimate disposition. Note dictated with [employer] software, please excuse any typos. Rosario Shoemaker MD Resident 12/18/18 4262 Associated attestation - Palak Serrano MD - 12/19/2018 11:03 AM EDT ATTENDING PHYSICIAN I have seen the patient and reviewed the resident's documentation and I agree with the details as written. The assessment and plan were formulated in discussion with me and I agree with them as documented. I also performed my own history and physical examination. Medical decision making in this note is my own. Pleasant 58-year-old male. Recently discharged with presumptive diagnosis of renovascular hypertension. Here with some palpitations and discomfort in his chest. Low risk chest pain but will need CDU rule out protocol. Also, he continues to be hypertensive and with a slightly elevated creatinine - nephrology consultation during this admission. 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 who had recent admission with sudden onset of flank pain when it was found that he had critical stenosis of his left renal artery .He was evaluated by vascular surgery and deemed not a candidate for revascularization but they offered evaluation by arteriogram which he decided to get it done later after discharge.He currently presented to ER with persistent chest pressures associated with ongoing issue with hypertension which is not controlled by Amlodipine .Nephrology is consulted for further assistance..He did keep checking his pressures since discharge and its been elevated >150/90 most of the time .He also noticed nocturia and yesterday hedid have to use restroom frequently and experienced chest pressure with funny feeling in heart thatmade him concerned and came to ER.In ER he was found to be hypertensive and tachycardic ,was given a dose of Amlodipine and scheduled for stress test this morning as there are no EKG changes and trop's are negative .His kidney function is better than last admission ,no increased leg swellings,no fevers or flank pain but did lost a lot of weight since last admission .He denied any chest pain and no Tele issues this morning ,still pressures are in 150/90's. History reviewed. No pertinent past medical history. No past surgical history on file. Family History Problem Relation Age of Onset ??? Myocardial Infarction Father 52 Social History Social History Narrative Not on file Outpatient medications: No current facility-administered medications on file prior to encounter. Current Outpatient Medications on File Prior to Encounter Medication Sig Dispense Refill ??? acetaminophen (TYLENOL) 325 mg Tablet Take 2 tablets by mouth every 6 hours as needed for Pain or Fever. 90 tablet 1 ??? amLODIPine (NORVASC) 5 mg Tablet Take 1 tablet by mouth daily. 90 tablet 3 ??? docusate sodium (COLACE) 100 mg Capsule Take 1 capsule by mouth 2 times daily as needed for Constipation. 20 capsule 0 ??? enoxaparin (LOVENOX) 80 mg/0.8 mL Syringe Inject 0.7 mLs subcutaneously 2 times daily. 60 each 5 ??? hydrocortisone 1 % Cream Apply 1 each topically 2 times daily. 30 g 0 ??? simethicone (MYLICON) 40 mg/0.6 mL Drops, Suspension Take 0.6 mLs by mouth every 6 hours as needed. 30 mL 0 ??? ketoconazole (NIZORAL) 2 % cream Apply topically daily. MEDICATIONS: ??? amLODIPine 5 mg Oral Daily ??? enoxaparin 70 mg Subcutaneous BID Allergies Allergen Reactions ??? Pseudafen [Pseudoephedrine Hcl] ROS: Constitutional - No fevers, chills, weight loss Skin - No rash or itchy skin HEENT - No headaches, visual changes Resp - No cough, shortness of breath CV - No chest pain, leg swelling, difficulty breathing lying flat GI - No nausea, vomiting,change in bowel habits/abdominal pain - No change in urine output. No pain urinating or blood in urine. Neuro - No weakness. No numbness/ tingling in extremities. PHYSICAL EXAM: Last value Range last 24 hrs Temperature Temp: 36.8 ??C (98.2 ??F) Temp: [36.8 ??C (98.2 ??F)-37.1 ??C (98.8 ??F)] Heart Rate Heart Rate: 59 Heart Rate: [59-83] Blood Pressure BP: (!) 145/97 BP: (136-154)/(93-103) Respiratory Rate Resp: 29 Resp: [10-29] SpO2 SpO2: 95 % SpO2: [95 %-100 %] Appearance - Alert, Comfortable. Skin - No exanthem. HEENT - Sclera white. Mucous membranes moist. Chest: Lungs clear to ausculatation w/o wheezes/ rhonchi/ crackles. Heart - S1 and S2 clear w/o murmur, gallop, or rub. JVP not elevated. Abd - Soft. + BS. No bruit. Non tender. ,No CVA tenderness Ext - Warm. No cyanosis. No dependent edema. Neuro - No asterixis. STUDIES: Labs: CBC: Recent Labs 04/14/189912/01/1859911/30/186 WBC 4.4 8.2 10.9* HGB 14.5 11.3* 11.4* PLATELET 243 124* 104* Chemistry: Recent Labs 12/18/18189912/01/1859911/30/1845511/26/18 2350 NA 140 140 138 < > 142 K 4.2 3.8 3.7 < > 3.7 CL 99 104 104 < > 104 CO2 28 25 24 < > 24 BUN 14 14 14 < > 21* CREATININE 1.30 1.32 1.36 < > 1.80* GLUCOSE 113 -- -- -- 114 < > = values in this interval not displayed. Recent Labs 12/18/18189912/01/1859911/30/1845511/29/18455 CALCIUM 9.8 7.9* 7.9* 7.8* MAGNESIUM -- 0.86 0.84 0.88 PHOS -- 2.3* 1.9* 2.0* LFT's: Recent Labs 11/26/180 BILITOT 0.6 BILIDIR 0.2 ALBUMIN 3.9 ALKPHOS 52 ALT 22 AST 34 IMPRESSION/ RECOMMENDATIONS: Hypertension: - Likely related to renal artery stenosis -but we are still not sure of sudden onset (still debating on thrombosis vs critical stenosis).His pressures are not controlled on increased doses of Amlodipine and ACEI is of major role in unilateral stenosis .As his kidney function is much better now ,will consider adding Lisinopril-10 mg to help in blood pressure control.Discussed with him about side effect profile like angioedema and cough ,also expect rise in creatinine with fall in GFR at least 30% is normal .She is going to get repeat labs in one week at [facility] and fax us the report @[phone] -will try to reschedule his appointment.Need home monitoring for further adjustments . - Need UA along with urine lytes and urine protein creatinine ratio to evaluate further . - Need follow up on cardiac status as the cause of renal artery occlusion is not clear -if it is thrombosis -need cardiac evaluation for source of emboli and need heme oncology in put regarding use of NOACS in this case as patient is requesting. Thanks for letting us participate in the care of this patient. Seen and Discussed w/ Dr. Jairo Vazquez MD Nephrology Fellow #[id number] Renal Attending: The patient was discharged before I could examine him, his case was discussed together with the renal fellow and I agree with the above note which accurately reflects our assessment and plan * Plan of Care - Sotero Brasher RN - 12/19/2018 12:50 AM EDT Problem: Patient Care Overview Goal: Plan of Care Review Outcome: Ongoing (Interventions Implemented as Appropriate) 12/18/182302 Coping/Psychosocial Plan Of Care Reviewed With patient;spouse OUTCOME EVALUATION NOTE: OUTCOME SUMMARY: Patient will have a echocardiogram treadmill stress test later today and then be reevaluated by Md. PLAN MOVING FORWARD: Continue monitoring, treatment of patient and encourage independents. Make Md.A wear of any changesContinue monitoring, treatment of patient and encourage independents. Make Md.A wear of any changes INDIVIDUALIZED FALL PREVENTION INTERVENTIONS: Patient-specific fall risk factors per assessment: [current deficits]: Patient is A&O X 4, Knows to call prior to getting out of bed, has call cervantes at patient side. Patient is wearing none skid socks, bed is in lowest position and all wheels locked. Patient ambulates with a steady gait and doesn't need any assistance with ambulation. Assistance [level of assistance required for transfers and ambulation]: Patient is independent and only needs assistance with Monitoring Cables. Supervision [direct monitoring required during toileting and ADLs]: Patient is independent and onlyneeds assistance with Monitoring Cables. Surveillance [continuous indirect monitoring]: Patient is on continuous EKG. SPO2 and respiratory monitoring. Patient-specific fall prevention interventions for sensory deficits provided, if applicable: Patient is A&O X 4, Knows to call prior to getting out of bed, has call cervantes at patient side. Patient is wearing none skid socks, bed is in lowest position and all wheels locked. Patient ambulates with a steady gait and doesn't need any assistance with ambulation. CPG GOAL OUTCOME EVALUATION: Goal: Fall Prevention-Safe Patient Handling Outcome: Ongoing (Interventions Implemented as Appropriate) 12/18/18230212/19/18 0045 Daily Care Interventions Self-Care Promotion -- independence encouraged Lockhart Fall Risk History of Falling 0 -- Secondary Diagnosis 15 -- Ambulatory Aids 0 -- Intravenous Therapy/Heparin/Saline Lock 20 -- Gait/Transferring 0 -- Mental Status 0 -- Score 35 -- OTHER Lockhart Fall Risk Med -- Restraint Interventions Safety Promotion/Fall Prevention activity supervised;fall prevention program maintained;nonskid shoes/slippers when out of bed;safety round/check completed -- Positioning Body Position independent -- Activity Activity Type activity adjusted per tolerance -- Activity Assistance Provided assistance, stand-by -- Assistive Device Utilized none -- Goal: Infection Control Outcome: Ongoing (Interventions Implemented as Appropriate) 12/18/182302 Safety Interventions Isolation Precautions standard precautions maintained Infection Prevention rest/sleep promoted;single patient room provided Coping Strategies Supportive Measures active listening utilized;counseling provided;decision- making supported;goal setting facilitated;self-care encouraged;self-reflection promoted;self-responsibility promoted;verbalization of feelings encouraged;relaxation techniques promoted documented in this encounter Plan of Treatment Upcoming Encounters Date Type Department Care Team (Late st Contact Info) Description 06/16/2024 4:00 PM EDT Office Visit Neph[place] [address] Betzaida Cope APRN [facility] [place], [place] [id number] 06/23/2024 2:00 PM EDT Appointment Non-In[place] [address] Owen Correia MD [facility] [place] [address] Scheduled Orders Name Type Priority Associated Diagnoses Orde r Schedule EKG 12 Lead ECG Routine One Time for 1 Occurrences starting 12/18/2018 until 12/18/2018 documented as of this encounter Procedures Procedure Name Priority Date/Time Associated Diagnosis Comments STRESS ECHO W CONTRAST W LMTD SPEC DOPP COLOR DOPP Routine 12/19/2018 9:06 AM EDT Renal artery stenosis Other forms of angina pectoris EKG 12-LEAD Routine 12/19/2018 1:05 AM EDT TROPONIN STAT 12/19/2018 1:04 AM EDT XR CHEST PA AND LATERAL STAT 12/18/2018 7:16 PM EDT HEMOGRAM STAT 12/18/2018 7:00 PM EDT DIFFERENTIAL, AUTOMATED STAT 12/18/2018 7:00 PM EDT GOLD TUBE HOLD STAT 12/18/2018 7:00 PM EDT BLUE TUBE HOLD STAT 12/18/2018 7:00 PM EDT CBC (WITH DIFF) STAT 12/18/2018 7:00 PM EDT TROPONIN STAT 12/18/2018 7:00 PM EDT BASIC METABOLIC PANEL STAT 12/18/2018 7:00 PM EDT EKG 12-LEAD STAT 12/18/2018 6:29 PM EDT documented in this encounter Results * STRESS ECHO W CONTRAST W LMTD SPEC DOPP COLOR DOPP (12/19/2018 9:06 AM EDT) EF 65 HEARTLAB SYSTEM Anatomical Region Laterality Modality Other 12/19/2018 Narrative 12/19/2018 9:33 AM EDT Procedure: ?Stress Echocardiogram Patient: ?SHELLY Nino ? (Age): 1960(58y) Med Rec#: ? [id number] ?Sex: ?M ? Site Loc: ? [facility] ?Ht / Wt: ??170(cm)/68(kg) Pt. Loc: ?Echo Lab ?BSA: ?1.79 Study Date: ?? 12/19/2018 ?Pt. Type: Tape: ? Referring: Palak Serrano Referring: STEPHANIE Reading: Jose Farah ([id number]) Client Care Consultant: Anitra Maurer Group Worker: Denia Johnson Diagnosis: *Atherosclerosis of renal artery (I70.1) *Other forms of angina pectoris (I20.8) Stage ? BP ?HR ? Rest ?120/88 ?99 ? Peak ?140/86 ?157 ? Recovery ?126/90 ?75 ? SUMMARY: 1. BASELINE ECHO: There is normal global [...] echo images. Borderline positive ECG for ischemia. Findings Rest: Left Ventricle: ? There is normal global left ventricular systolic function. ??Ejection fraction is estimated to be 65%. ?There are no left ventricular segmental wall motion abnormalities. Right Ventricle: ? Right ventricular global systolic function is normal. ?The estimated pulmonary artery systolic pressure is 24 mmHg. Plus RAP. Aortic Valve: ? The aortic valve is tricuspid. ?Systolic excursion of the aortic valve is normal. ?There is no evidence of aortic valve stenosis. ?Mild (1+/4+) aortic valve regurgitation is present. Mitral Valve: ? The mitral valve leaflets appear normal. ?There is mild (1+/4+) mitral regurgitation present. Tricuspid Valve: ? The tricuspid valve leaflets are morphologically normal. ?There is mild (1+/4+) tricuspid regurgitation present. Pericardium: ? The pericardium appears normal and there is no evidence of a pericardial effusion. Aorta: ? The aortic root is normal in size. ?There is mild dilatation of the ascending aorta. Stress: ? EKG: normal sinus rhythm. ?EKG: nondiagnostic ST-T changes. ?The patient's oxygen saturation was ??97%. ?The patient is taking a calcium channel brown. ?The patient is taking aspirin. Findings Peak: Predicted Values:The patient achieved a maximum heart rate of 157 which is 97% of the maximum predicted heart rate (162 beats/min). ??The target heart rate was achieved. Left Ventricle: ? Global left ventricular systolic function appears hyperdynamic. LVEF 70%. ?There are no left ventricular segmental wall motion abnormalities. Stress: ? Patient followed a Adam protocol. ?The patient exercised into stage 4. ?The total exercise duration was:10:45 min:sec. ?The study was terminated because of fatigue. ?The study was terminated because of ?? dyspnea and mild lightheadedness. ?The patient did not express feelings of chest discomfort. ?The patient experienced shortness of breath. ?Exercise capacity was excellent. ?The patient achieved a level of 13 METS. ?There were rare atrial premature beats. ?There were rare ventricular premature beats. ?There was ST segment depression noted. Up to 1.0 mm of horizontal to downsloping ST segment depressions; borderline positive for ischemia. ?EKG: sinus tachycardia. ?The patient's oxygen saturation was 100%. Misc: ? Definity contrast (one 1.5 ml vial)was used to enhance endocardial definition. Excess contrast was discarded. ?Stress echo, limited spectral Doppler, color Doppler and ECG interpretation performed. Findings Recovery: Stress: ? EKG: normal sinus rhythm. Chambers 2D ?Value ?Units (Range) ? Ascending Ao ?3.6 ?cm (2 - 3.5) ? Tricuspid Valve ?Value ?Units (Range) ? RVSP ?24 ? mmHg ? Wall Motion: Segment Name ?Rest ? Peak ? Base-Anteroseptal ?? Normal ? Normal ? Base-Anterior ? Normal ? Normal ? Base-Anterolateral ??Normal ? Normal ? Base-Posterolateral Normal ? Normal ? Base-Inferior ? Normal ? Normal ? Base-Inferoseptal ?? Normal ? Normal ? Mid-Anteroseptal ?Normal ? Normal ? Mid-Anterior ?Normal ? Normal ? Mid-Anterolateral ?? Normal ? Normal ? Mid-Posterolateral ??Normal ? Normal ? Mid-Inferior ?Normal ? Normal ? Mid-Inferoseptal ?Normal ? Normal ? Burke-Septal ? Normal ? Normal ? Burke-Anterior ? Normal ? Normal ? Burke-Lateral ?Normal ? Normal ? Burke-Inferior ? Normal ? Normal ? Burke-Tip ?Normal ? Normal ? This report has been electronically signed by: Jose Yung. MD Sofi ? 12/19/2018 09:21:11 Images reviewed and interpretation verified [facility] Cardiac Ultrasound [facility] Procedure Note Jose Farah MD - 12/19/2018 Procedure: Stress Echocardiogram Patient: SHELLY GUEVARA(Age): 1960(58y) Med Rec#: [id number] Sex: M [place] [facility] [place] / Wt: 170(cm)/68(kg) Pt. Loc: Echo Lab BSA: 1.79 Study Date: 12/19/2018 Pt. Type: Tape: Referring: Palak Serrano Referring: STEPHANIE Reading: Jose Farah ([id number]) Client Care Consultant: Anitra Maurer Group Worker: Denia Johnson [facility] Diagnosis: *Atherosclerosis of renal artery (I70.1) *Other forms of angina pectoris (I20.8) Stage BP HR Rest 120/88 99 Peak 140/86 157 Recovery 126/90 75 SUMMARY: 1. BASELINE ECHO: There is normal global [...] echo images. Borderline positive ECG for ischemia. Findings Rest: Left Ventricle: There is normal global left ventricular systolic function. Ejection fraction is estimated to be 65%. There are no left ventricular segmental wall motion abnormalities. Right Ventricle: Right ventricular global systolic function is normal. The estimated pulmonary artery systolic pressure is 24 mmHg. Plus RAP. Aortic Valve: The aortic valve is tricuspid. Systolic excursion of the aortic valve is normal. There is no evidence of aortic valve stenosis. Mild (1+/4+) aortic valve regurgitation is present. Mitral Valve: The mitral valve leaflets appear normal. There is mild (1+/4+) mitral regurgitation present. Tricuspid Valve: The tricuspid valve leaflets are morphologically normal. There is mild (1+/4+) tricuspid regurgitation present. Pericardium: The pericardium appears normal and there is no evidence of a pericardial effusion. Aorta: The aortic root is normal in size. There is mild dilatation of the ascending aorta. Stress: EKG: normal sinus rhythm. EKG: nondiagnostic ST-T changes. The patient's oxygen saturation was 97%. The patient is taking a calcium channel brown. The patient is taking aspirin. Findings Peak: Predicted Values:The patient achieved a maximum heart rate of 157 which is 97% of the maximum predicted heart rate (162 beats/min). The target heart rate was achieved. Left Ventricle: Global left ventricular systolic function appears hyperdynamic. LVEF 70%. There are no left ventricular segmental wall motion abnormalities. Stress: Patient followed a Adam protocol. The patient exercised into stage 4. The total exercise duration was:10:45 min:sec. The study was terminated because of fatigue. The study was terminated because of dyspnea and mild lightheadedness. The patient did not express feelings of chest discomfort. The patient experienced shortness of breath. Exercise capacity was excellent. The patient achieved a level of 13 METS. There were rare atrial premature beats. There were rare ventricular premature beats. There was ST segment depression noted. Up to 1.0 mm of horizontal to downsloping ST segment depressions; borderline positive for ischemia. EKG: sinus tachycardia. The patient's oxygen saturation was 100%. Misc: Definity contrast (one 1.5 ml vial)was used to enhance endocardial definition. Excess contrast was discarded. Stress echo, limited spectral Doppler, color Doppler and ECG interpretation performed. Findings Recovery: Stress: EKG: normal sinus rhythm. Chambers 2D Value Units (Range) Ascending Ao 3.6 cm (2 - 3.5) Tricuspid Valve Value Units (Range) RVSP 24 mmHg Wall Motion: Segment Name Rest Peak Base-Anteroseptal Normal Normal Base-Anterior Normal Normal Base-Anterolateral Normal Normal Base-Posterolateral Normal Normal Base-Inferior Normal Normal Base-Inferoseptal Normal Normal Mid-Anteroseptal Normal Normal Mid-Anterior Normal Normal Mid-Anterolateral Normal Normal Mid-Posterolateral Normal Normal Mid-Inferior Normal Normal Mid-Inferoseptal Normal Normal Burke-Septal Normal Normal Burke-Anterior Normal Normal Burke-Lateral Normal Normal Burke-Inferior Normal Normal Burke-Tip Normal Normal This report has been electronically signed by: Jose Farah MD 12/19/2018 09:21:11 Images reviewed and interpretation verified [facility] Palak Serrano MD ECHO ORDERABLES * EKG 12 Lead (12/19/2018 1:05 AM EDT) Ventricular rate 61 BPM MUSE SYSTEM Atrial Rate 61 BPM MUSE SYSTEM P-R Interval 148 ms MUSE SYSTEM QRS Duration 88 ms MUSE SYSTEM Q-T Interval 456 ms MUSE SYSTEM QTC Calculated (Bezet) 459 ms MUSE SYSTEM Calculated P [place] 70 degrees MUSE SYSTEM Calculated R [place] 66 degrees MUSE SYSTEM Calculated T [place] 58 degrees MUSE SYSTEM INTERPRETATION Normal sinus rhythm Possible Left atrial enlargement Nonspecific ST and T wave abnormality When compared with ECG of 18-DEC-2018 18:29, (unconfirmed) No significant change was found Confirmed by MD Diego, Sotero ([id number]) on 12/19/2018 8:13:21 AM MUSE SYSTEM 12/19/2018 1:05 AM EDT 12/19/2018 8:13 AM EDT Palak Serrano MD ECG ORDERABLES Performing Organization Address [facility] de Phone Number MUSE SYSTEM * Troponin (12/19/2018 1:04 AM EDT) Troponin-T <0.01 0.00 - 0.00 ng/mL [facility] Comment: The 99th percentile for Troponin T is less than 0.01 ng/mL, any detectable cTnT concentration using this assay should be considered elevated. According to the third universal definition of myocardial infarction the following criteria with a clinical presentation consistent with acute myocardial ischemia meets the diagnosis for a myocardial infarction (MN). Detection of a rise and/or fall of cTnT, with at least one value greater than the 99th percentile (> or = 0.01) and with at least one of the following ?? Symptoms of ischemia ?? New or presumed new significant VS-fmsqfpv-N wave (ST-T) changes or new left bundle [...] additional sample may be indicated. Reference: Third [place] Definition of Myocardial Infarction. Journal of the [place] [employer] 2012;60:1581-98 Blood specimen (specimen) 12/19/2018 1:04 AM EDT 12/19/2018 1:09 AM EDT Narrative Resulting Agency Comment Spec In Lab Palak Serrano MD CHEMISTRY ORDERABLES Performing Organization Address City/[facility]/ZIP Co de Phone Number [facility] [place] [address] * XR Chest PA & Lateral (Generic) (12/18/2018 7:16 PM EDT) Anatomical Region Laterality Modality Chest N/A Digital Radiogra phy Impressions 12/18/2018 7:29 PM EDT NO RADIOGRAPHIC EVIDENCE OF ACTIVE CARDIOPULMONARY DISEASE. Thank you for letting us participate in the care of this patient. For questions regarding this report, please contact the number below. ? Narrative 12/18/2018 7:29 PM EDT EXAMINATION: XR CHEST PA AND LATERAL (GENERIC) CLINICAL HISTORY: Chest pain TECHNIQUE: Frontal and lateral views of the chest COMPARISON: 11/28/2018 FINDINGS: Cardiomediastinal contours are within normal limits. Lungs are clear. There are no pleural effusions. Visualized bony and soft tissue structures are unremarkable. Old rib fracture on the right side is suspected. Procedure Note Della Fuller MD - 12/18/2018 EXAMINATION: XR CHEST PA AND LATERAL (GENERIC) CLINICAL HISTORY: Chest pain TECHNIQUE: Frontal and lateral views of the chest COMPARISON: 11/28/2018 FINDINGS: Cardiomediastinal contours are within normal limits. Lungs are clear. There are no pleural effusions. Visualized bony and soft tissue structures are unremarkable. Old ribfracture on the right side is suspected. IMPRESSION NO RADIOGRAPHIC EVIDENCE OF ACTIVE CARDIOPULMONARY DISEASE. Thank you for letting us participate in the care of this patient. Forquestions regarding this report, please contact the number below. Shabbir Chua MD IMG DX ORDERABLES * Gold Tube HOLD (12/18/2018 7:00 PM EDT) Gold Hold Sample in lab. [facility] Blood specimen (specimen) Venous Draw / Unknown 12/18/2018 7:00 PM EDT 12/18/2018 7:07 PM EDT Rosario Shoemaker MD CHEMISTRY ORDERABLE S Performing Organization Address City/[facility]/ZIP Co de Phone Number [facility] [place] [address] * Blue Tube HOLD (12/18/2018 7:00 PM EDT) Blue Hold Sample in lab. [facility] Blood specimen (specimen) Venous Draw / Unknown 12/18/2018 7:00 PM EDT 12/18/2018 7:07 PM EDT Rosario Shoemaker MD HEMATOLOGY ORDERABL ES Performing Organization Address City/[facility] Co de Phone Number [facility] [place] [address] * Differential, Automated (12/18/2018 7:00 PM EDT) Neutrophil % 57.0 % [facility] Neutrophil Absolute 2.49 1.70 - 6.10 x10(3)/[facility] Lymph % 28.4 % [facility] Lymphocytes Abs 1.2 0.9 - 3.2 x10(3)/[facility] Monocyte % 10.3 % [facility] Monocyte Abs 0.4 0.3 - 0.9 x10(3)/[facility] Eos % 3.0 % [facility] Eosinophils Abs 0.1 0.0 - 0.4 x10(3)/[facility] Basophil % 1.1 % [facility] Baso Absolute 0.0 0.0 - 0.1 x10(3)/[facility] Immature Gran % 0.20 % [facility] Comment: Immature granulocytes(IG's)percentage and absolute count will include metamyelocytes, myelocytes, and promyelocytes. Blood smears from CBCs yielding IG's will be scanned manually for concordance. If this scan disagrees with the automated IG or if promyelocytes are noted, a manual differential will be performed. Immature Gran Absolute 0.01 0.00 - 0.04 x10(3)/[facility] Blood specimen (specimen) 12/18/2018 7:00 PM EDT 12/18/2018 7:07 PM EDT Narrative Resulting Agency Comment Spec In Lab Rosario Shoemaker MD HEMATOLOGY ORDERABL ES [facility] [place] [address] * Hemogram (12/18/2018 7:00 PM EDT) White Blood Cell 4.4 4.0 - 9.5 x10(3)/[facility] Red Blood Cell 4.87 4.58 - 5.54 x10(6)/[facility] Hemoglobin 14.5 13.7 - 16.5 gm/dL [facility] Hematocrit 43.0 40.5 - 48.5 % [facility] Mean Cell Volume 88.3 82.9 - 93.1 fL [facility] Mean Cell Hemoglobin 29.8 27.5 - 32.1 pg [facility] Mean Cell Hemoglobin Concentration 33.7 32.0 - 35.7 gm/dL [facility] Platelet 243 145 - 357 x10(3)/[facility] RDW Standard Deviation 38.5 36.0 - 45.0 fL [facility] RDW coefficient of variation 11.9 11.4 - 13.8 % [facility] Mean Platelet Volume 9.8 7.6 - 12.9 fL [facility] NRBC% auto 0.0 % [facility] NRBC Absolute 0.000 0.000 - 0.000 x10(3)/mcL [facility] Blood specimen (specimen) 12/18/2018 7:00 PM EDT 12/18/2018 7:07 PM EDT Narrative Resulting Agency Comment Spec In Lab Rosario Shoemaker MD HEMATOLOGY ORDERABL ES Performing Organization Address City/[facility]/ZIP Co de Phone Number [facility] [place] [address] * Troponin (12/18/2018 7:00 PM EDT) Troponin-T <0.01 0.00 - 0.00 ng/mL [facility] Comment: The 99th percentile for Troponin T is less than 0.01 ng/mL, any detectable cTnT concentration using this assay should be considered elevated. According to the third universal definition of myocardial infarction the following criteria with a clinical presentation consistent with acute myocardial ischemia meets the diagnosis for a myocardial infarction (MN). Detection of a rise and/or fall of cTnT, with at least one value greater than the 99th percentile (> or = 0.01) and with at least one of the following ?? Symptoms of ischemia ?? New or presumed new significant DW-epohnnf-E wave (ST-T) changes or new left bundle [...] additional sample may be indicated. Reference: Third [place] Definition of Myocardial Infarction. Journal of the [place] [employer] 2012;60:1581-98 Blood specimen (specimen) 12/18/2018 7:00 PM EDT 12/18/2018 7:07 PM EDT Narrative Resulting Agency Comment Spec In Lab Shabbir Chua MD CHEMISTRY ORDERABLES [facility] [place] [address] * Basic Metabolic Panel (non-fasting) (12/18/2018 7:00 PM EDT) Glucose 113 65 - 199 mg/dL [facility] Comment:Diabetes: >=200 mg/d L plus symptoms Blood Urea Nitrogen 14 10 - 20 mg/dL [facility] Creatinine 1.30 0.80 - 1.50 mg/dL [facility] [facility] Sodium 140 135 - 145 mmol/L [facility] Potassium 4.2 3.5 - 5.0 mmol/L [facility] Comment: Please note: ??Patients with WBC >100,000 may have falsely elevated Potassium levels. ??For accurate Potassium quantification in these patients send serum separator tube (gold top) for subsequent determinations. ??Contact the Clinical Chemistry Laboratory if there are any questions. Chloride 99 98 - 107 mmol/L [facility] Carbon Dioxide 28 22 - 31 mmol/L [facility] Anion Gap 13 5 - 15 mmol/L [facility] Calcium 9.8 8.5 - 10.5 mg/dL [facility] Est Glomerular Filtration Rate 60 >=60 mL/min/1. 73 m?? [facility] Comment: The eGFR was calculated using the CKD-EPI equation. As with all creatinine based estimates of kidney function, eGFR values calculated with the CKD-EPI equation are not accurate in patients with acute kidney failure, extremes of body mass or the acutely ill. [email or web address]/[facility] [place] eGFR 70 >=60 mL/min/1. 73 m?? [facility] Comment: The eGFR was calculated using the CKD-EPI equation. As with all creatinine based estimates of kidney function, eGFR values calculated with the CKD-EPI equation are not accurate in patients with acute kidney failure, extremes of body mass or the acutely ill. [email or web address] Blood specimen (specimen) 12/18/2018 7:00 PM EDT 12/18/2018 7:07 PM EDT Narrative Resulting Agency Comment Spec In Lab Shabbir Chua MD CHEMISTRY ORDERABLES [facility] [place] [address] * EKG 12 Lead (12/18/2018 6:29 PM EDT) Ventricular rate 71 BPM MUSE SYSTEM Atrial Rate 71 BPM MUSE SYSTEM P-R Interval 132 ms MUSE SYSTEM QRS Duration 86 ms MUSE SYSTEM Q-T Interval 418 ms MUSE SYSTEM QTC Calculated (Bezet) 454 ms MUSE SYSTEM Calculated P [place] 67 degrees MUSE SYSTEM Calculated R [place] 64 degrees MUSE SYSTEM Calculated T [place] 49 degrees MUSE SYSTEM INTERPRETATION Normal sinus rhythm Possible Left atrial enlargement Nonspecific ST abnormality When compared with ECG of 27-NOV-2018 02:10, No significant change was found Confirmed by MD Diego, Sotero ([id number]) on 12/19/2018 8:12:53 AM MUSE SYSTEM 12/18/2018 6:29 PM EDT 12/19/2018 8:12 AM EDT Palak Serrano MD ECG ORDERABLES MUSE SYSTEM documented in this encounter Visit Diagnoses Diagnosis Renal artery stenosis Atherosclerosis of renal artery Other forms of angina pectoris Chest pain Chest pain, unspecified documented in this encounter Admitting Diagnoses Diagnosis Chest pain Chest pain, unspecified documented in this encounter Administered Medications Inactive Administered Medications - up to 3 most recent administrations Medication Order NOV Action Action Date Dose Rate Site acetaminophen (TYLENOL) tablet 650 mg 650 mg, Oral, ONCE, 1 dose, On Wed12/19/18 at 0758, Maximum dose of acetaminophen is 4000 mg from all sources in 24 hours., STAT Given 12/19/2018 8:01 AM EDT 650 mg amLODIPine (NORVASC) tablet 10 mg 10 mg, Oral, DAILY, First dose (after last modification) on Wed12/19/18 at 0900, Until Discontinued, Routine Given 12/19/2018 9:10 AM EDT 10 mg aspirin chewable tablet 324 mg 324 mg, Oral, ONCE, 1 dose, On Wed12/18/18 at 1903, STAT Given 12/18/2018 7:26 PM EDT 324 mg enoxaparin (LOVENOX) injection 70 mg 70 mg, Subcutaneous, 2 TIMES DAILY, First dose on 12/18/18 at 2257, Until Discontinued, Routine Given 12/19/2018 9:09 AM EDT 70 mg documented in this encounter Active and Recently Administered Medications Times are shown in EDT. Scheduled Medication Order 12/17/2018 12/18/2018 12/19/2018 acetaminophen (TYLENOL) tablet 650 mg (COMPLETED) 650 mg, Oral, ONCE, 1 dose, On 12/19/18 at 0758, Maximum dose of acetaminophen is 4000 mg from all sources in 24 hours., STAT 0801 (Given - Provid er: Sotero Horne, COLE) amLODIPine (NORVASC) tablet 10 mg 10 mg, Oral, DAILY, First dose (after last modification) on 12/19/18 at 0900, Until Discontinued, Routine 0910 (Given - Provid er: Sotero Horne RN) aspirin chewable tablet 324 mg (COMPLETED) 324 mg, Oral, ONCE, 1 dose, On 12/18/18 at 1903, STAT 1926 (Given - Provider: Mario Stanley RN) enoxaparin (LOVENOX) injection 70 mg 70 mg, Subcutaneous, 2 TIMES DAILY, First dose on 12/18/18 at 2257, Until Discontinued, Routine 2257 (Not Given - Provider: Sotero Brasher RN - Reason: See comment - Comment: patient took this evenings dose) 0909 (Given - Provider: Sotero Horne RN) documented in this encounter Care Teams Net Manager Relationship Specialty Start Date End Date Rohit Anderson MD [address] [facility] [address] [place] [address] PCP - General General Internal Medicine 12/18/18 documented as of this encounter
--- OUTSIDE RECORDS SUMMARY | 2024-06-09 02:56 | XMS_ITS | Encounter Summary ---
[place] [address] Care Team Providers Care Sales & Service Associate Name Role Phone Sonal Sorensen APRN Primary Care Provider [phone] Reason for Visit * Diagnostic Test (Routine) - Closed Specialty Diagnoses / Procedures Referred By Contac t Referred To Contact Radiology Diagnoses Renal artery stenosis Procedures NM Renal, Anatomic Scan NM Renal w Function Study Karolyn Nicholson MD [facility] [place] [address] [place] [address] Referral ID Status Reason Start Date Expiration Date V isits Requested Visits Authorized [id number] Closed Specialty Service Requested 12/01/2018 12/01/2019 2 2 Encounter Details Date Type Department Care Team (Latest Contact Info) Description 12/05/2018 9:50 AM EDT - 12/05/2018 11:59 PM EDT Hospital En[place] [address] Discharge Disposition: Home Social History Tobacco Use [...] PM EDT Office Visit Neph[place] [phone] Betzaida Cope APRN [facility] [place] [address] 06/23/2024 2:00 PM EDT Appointment Non-Invasive [place] [phone] Owen Correia MD [facility] [place] [address] documented as of this encounter Procedures Procedure [...] contact the number below. Parth Frias MD IMG NM ORDERABLES documented in this encounter Visit Diagnoses Not on filedocumented in this encounter Care Teams Sales & Service Associate Relationship Specialty Start Date End Date Sonal Sorensen, ACTIVE DIRECTORY SYSTEMS ADMINISTRATOR PCP - General Family Medicine 02/21/18 12/17/18 documented as of this encounter
--- OUTSIDE RECORDS SUMMARY | 2024-06-09 02:56 | XMS_ITS | Encounter Summary ---
Author Organization [facility] [place] [address] Care Team Providers Care Burial Vault Maker Name Role Phone Rohit Anderson MD Primary Care Provider [phone] Encounter Details Date Type Department Care Team (Late st Contact Info) Description 12/23/2018 Orders Only [place] [phone] Ernie Garrett MD [facility] [place] [place] [address] Renal artery stenosis Social History Tobacco Use [...] PM EDT Office Visit [place] [phone] Betzaida Cope, [place] [facility] [place] [address] 06/23/2024 2:00 PM EDT Appointment Non-Invasive [place] [address] Owen Correia MD [facility] [place] [address] documented as of this encounter Results * (ABNORMAL) Basic Metabolic Panel (non-fasting) (02/14/2019 3:29 PM EDT) Glucose 82 65 - 199 mg/dL [facility] Comment:Diabetes: >=200 mg/d L plus symptoms Blood Urea Nitrogen 20 10 - 20 mg/dL [facility] Creatinine 1.53(H) 0.80 - 1.50 mg/dL [facility] Sodium 142 135 - 145 mmol/L [facility] Potassium 4.5 3.5 - 5.0 mmol/L [facility] Comment: Please note: ??Patients with WBC >100,000 may have falsely elevated Potassium levels. ??For accurate Potassium quantification in these patients send serum separator tube (gold top) for subsequent determinations. ??Contact the Clinical Chemistry Laboratory if there are any questions. Chloride 102 98 - 107 mmol/L [facility] Carbon Dioxide 28 22 - 31 mmol/L [facility] Anion Gap 12 5 - 15 mmol/L [facility] Calcium 9.3 8.5 - 10.5 mg/dL [facility] Est Glomerular Filtration Rate 49(L) >=60 mL/min/1. 73 m?? [facility] Comment: The eGFR was calculated using the CKD-EPI equation. As with all creatinine based estimates of kidney function, eGFR values calculated with the CKD-EPI equation are not accurate in patients with acute kidney failure, extremes of body mass or the acutely ill. http://[email or web address] eGFR 57(L) >=60 mL/min/1. 73 m?? [facility] Comment: The eGFR was calculated using the CKD-EPI equation. As with all creatinine based estimates of kidney function, eGFR values calculated with the CKD-EPI equation are not accurate in patients with acute kidney failure, extremes of body mass or the acutely ill. [email or web address] Blood specimen (specimen) 02/14/2019 3:29 PM EDT 02/14/2019 3:36 PM EDT Narrative Resulting Agency Comment Spec In Lab Ernie Garrett MD CHEMISTRY ORDERABLE S Performing Organization Address City/State/[facility] Co de Phone Number [facility] [place] [address] documented in this encounter Visit Diagnoses Diagnosis Renal artery stenosis Atherosclerosis of renal artery documented in this encounter Care Teams Burial Vault Maker Relationship Specialty Start Date End Date Rohit Anderson MD [address] [facility] [address] [place] [address] PCP - General General Internal Medicine 12/18/18 documented as of this encounter
--- OUTSIDE RECORDS SUMMARY | 2024-06-09 02:56 | XMS_ITS | Encounter Summary ---
Author Organization [facility] Address [facility] [place] [address] Care Team Providers Care Horticulture Professor Name Role Phone Rohit Anderson MD Primary Care Provider [phone] Encounter Details Date Type Department Care Team (Latest Contact Info) Description 12/20/2018 10:00 AM EDT Office Visit [place] [address] Ernie Garrett MD [facility] [place] [address] Renal artery stenosis Social History Tobacco Use [...] Sign Reading Time Taken Comments Blood Pressure 145/104 12/20/2018 9:57 AM EDT Pulse 109 12/20/2018 9:57 AM EDT Temperature - - Respiratory Rate - - Oxygen Saturation - - Inhaled Oxygen Concentration - - Weight 59.9 kg (132 lb) 12/20/2018 9:57 AM EDT Height 170.2 cm (5' 7) 12/20/2018 9:57 AM EDT Body Mass Index 20.67 12/20/2018 9:57 AM EDT documented in this encounter Progress Notes * Ernie Garrett MD - 12/20/2018 10:00 AM EDT Images from the original note were not included. 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 The patient was recently hospitalized with on infarction of the left kidney. The etiology is still unclear. He was just in the hospital 2 days ago with some chest pain complaints which resulted in a stress test that was essentially normal.He has had no obvious episodes of atrial fibrillation. The remainder of his work-up in hospital forcoagulation problems etc. was negative. The patient had a number of questions today: He was asking about resuming exercise and I advised him to slowly begin walking and not to stress himself too much at the present time. He was concerned about the AKUA inhibitor and I discussed possible side effects including cough. I indicated to him that this may be a temporary problem as he probably has some small areas of the kidney that are still undergoing remodeling and may be responsible for the hypertension that is currently experiencing. In general however he has no further abdominal and/or flank pain. He is having occasional night sweats but these seem to be improving. He is having nocturia x4-6. Physical exam:BP (!) 145/104 Pulse (!) 109 Ht 170.2 cm (5' 7) Wt 59.9 kg (132 lb) BMI 20.67 kg/m?? Pleasant male in no acute distress, no left CVA tenderness, no abdominal tenderness, cardiac exam is regular rate and rhythm, extremities are without edema, neurologic exam is intact. Assessment and plan: The patient's renal function has continued to improve consistent with hypertrophy of his remaining kidney. He will go ahead and start the AKUA inhibitor given his mild hypertension today, and will have labs checked for potassium and creatinine early next week. We talked about anticoagulation, he is currently on Lovenox but does not like injecting himself. He is going to contact his primary care doctor about getting monitoring for atrial fibrillation to rule this out. Depending on whether this is positive or negative we can decide on further anticoagulation. For the presenttime the patient will continue Lovenox. I will plan on seeing him back in 2 months. documented in this encounter Plan of Treatment Upcoming Encounters Date Type Department Care Team (Late st Contact Info) Description 06/16/2024 4:00 PM EDT Office Visit [place] [phone] Betzaida Cope APRN [facility] [place] [address] 06/23/2024 2:00 PM EDT Appointment Non-[place]vasive [place] [phone] Owen Correia MD [facility] [address] documented as of this encounter Visit Diagnoses Diagnosis Renal artery stenosis Atherosclerosis of renal artery documented in this encounter Care Teams Horticulture Professor Relationship Specialty Start Date End Date Rohit Anderson MD [address] [facility] [address] [place] [address] PCP - General General Internal Medicine 12/18/18 documented as of this encounter
--- OUTSIDE RECORDS SUMMARY | 2024-06-09 02:56 | XMS_ITS | Encounter Summary ---
[place] [address] Care Team Providers Care Telephonic Case Manager Name Role Phone Rohit Anderson MD Primary Care Provider [phone] Reason for Referral * Diagnostic Test (Routine) - Closed Specialty Diagnoses / Procedures Referred By Contac t Referred To Contact Cardiology Diagnoses Heart palpitations Procedures Hussain Elaine MD [facility] [place] [address] [facility] [address] [place] [phone] Referral ID Status Reason Start Date Expiration Date V isits Requested Visits Authorized [id number] Closed Specialty Service Requested 01/20/2019 07/23/2019 1 1 Reason for Visit * Auth/Cert Specialty Diagnoses / Procedures Referred By Contac t Referred To Contact Diagnoses Palpitations Procedures SANJAY Referral ID Status Reason Start Date Expiration Date Visits Re quested Visits Authorized [id number] 1 1 Encounter Details Date Type Department Care Team (Latest Contact Info) Description 01/20/2019 11:00 AM EDT - 01/20/2019 11:59 PM EDT Hospital Encounter Non-[place] [phone] Hussain Huffman MD [facility] [place] [address] Heart palpitations Discharge Disposition: Home Social History Tobacco Use [...] Sig Dispensed Refills Start Date End Date verapamil (CALAN-SR) 180 mg Tablet Sustained Release take 1 tablet by mouth once daily 0 01/05/2019 02/01/2020 lisinopril (PRINIVIL;ZESTRIL) 10 mg Tablet take 1 tablet by mouth once daily 0 01/19/2019 02/01/2020 acetaminophen (TYLENOL) 325 mg Tablet Take 2 tablets by mouth every 6 hours as needed for Pain or Fever. 90 tablet 1 12/01/2018 04/03/2019 enoxaparin (LOVENOX) 80 mg/0.8 mL Syringe Inject 0.7 mLs subcutaneously 2 times daily. 60 each 5 12/01/2018 04/03/2019 documented as of this encounter Plan of Treatment Upcoming Encounters Date Type Department Care Team (Late st Contact Info) Description 06/16/2024 4:00 PM EDT Office Visit Neph[place] [phone] Betzaida Cope APRN [facility] [place] [address] 06/23/2024 2:00 PM EDT Appointment Non-[place] [phone] Owen Correia MD [facility] [place] [address] documented as of this encounter Procedures Procedure Name Priority Date/Time Associated Diagnosis Comments ZIOPATCH Routine 01/20/2019 11:06 AM EDT Heart palpitations documented in this encounter Results * Ziopatch (01/20/2019 11:06 AM EDT) Anatomical Region Laterality Modality Other Narrative 02/15/2019 12:10 PM EDT Cardiac Electrophysiology Zio Monitor Study Initiated: ??20 Jan 2019 Duration: ?? 12 days 21 hours (after removal of ~22 hours of artifact) Indication: Palpitations Result: The overall sinus rhythm rate range was 38-143/minute, and averaged 61/minute. The predominant underlying rhythm throughout the monitoring period was conducted sinus rhythm. The slowest heart rates tended to occur overnight, when also the least amount of heart rate variation tended to be manifest. No pauses >3 seconds were seen, and [...] and the longest lasted 7 beats at a mean rate of 112/minute); the mean rate of all of these runs was 114/minute. There was a <1.0% burden of isolated ectopic ventricular beats detected, and rare couplets (no triplets) were detected as well. There were no ventricular runs detected. The patient wrote in no timed diary entries for symptoms. There were 3 patient-triggered events that corresponded to normal sinus rhythm. Conclusion: This monitor study was remarkable for sinus rhythm. Infrequent nonsustained supraventricular tachycardia runs (without any atrial flutter/fibrillation) and a low overall burden of ectopy were detected. ____ Interpreted by Mario Hart MD, [facility] Hussain Huffman MD CARDIAC SERVICES ORD ERABLES documented in this encounter Visit Diagnoses Diagnosis Heart palpitations Palpitations documented in this encounter Care Teams Telephonic Case Manager Relationship Specialty Start Date End Date Rohit Anderson MD [address] [facility] [address] [place] [address] PCP - General General Internal Medicine 12/18/18 documented as of this encounter
--- OUTSIDE RECORDS SUMMARY | 2024-06-09 02:56 | XMS_ITS | Encounter Summary ---
[place] [address] Care Team Providers Care Shot Fireman Name Role Phone Rohit Anderson MD Primary Care Provider [phone] Reason for Referral * Consultation (Routine) - Closed Specialty Diagnoses / Procedures Referred By Contac t Referred To Contact Cardiology Diagnoses Renal artery stenosis Ernie Garrett MD [facility] [place] [address] [facility] [address] [place] [phone] Referral ID Status Reason Start Date Expiration Date V isits Requested Visits Authorized [id number] Closed Consult, Test & Treat 01/10/2019 01/10/2020 1 1 Encounter Details Date Type Department Care Team (Late st Contact Info) Description 01/10/2019 Telephone [place] [phone] Doreen Cowart RN Social History Tobacco Use Types Packs/Day [...] Miscellaneous Notes * Telephone Encounter - Doreen Cowart, COLE - 01/10/2019 9:35 AM EDT S/O: LM for patient to discuss ongoing plan with Dr Garrett. Consult placed for Cardiology eval to rule out arrhythmia as cause of recent renal infarct documented in this encounter Plan of Treatment Upcoming Encounters Date Type Department Care Team (Late st Contact Info) Description 06/16/2024 4:00 PM EDT Office Visit [place] [address] Betzaida Cope APRN [facility] [place] [address] 06/23/2024 2:00 PM EDT Appointment [place] [address] Owen Correia MD [facility] [place] [address] Scheduled Referrals Name Type Priority Associated Diagnoses Order Schedule Referral to Cardiology Outpatient Referral Routine Renal artery stenosis Ordered: 01/10/2019 documented as of this encounter Visit Diagnoses Diagnosis Renal artery stenosis Atherosclerosis of renal artery documented in this encounter Care Teams Shot Fireman Relationship Specialty Start Date End Date Rohit Anderson MD [address] [facility] [address] [place] [address] PCP - General General Internal Medicine 12/18/18 documented as of this encounter
--- OUTSIDE RECORDS SUMMARY | 2024-06-09 02:56 | XMS_ITS | Encounter Summary ---
[place] [address] Care Team Providers Care Camera Prototyping Engineer Name Role Phone Rohit Anderson MD Primary Care Provider [phone] Reason for Referral * Diagnostic Test (Routine) - Closed Specialty Diagnoses / Procedures Referred By Edithac t Referred To Contact Cardiology Diagnoses Heart palpitations Procedures Hussain Elaine MD [facility] [place] [address] [facility] Cardiology [address] [place] [phone] Referral ID Status Reason Start Date Expiration Date V isits Requested Visits Authorized [id number] Closed Specialty Service Requested 01/20/2019 07/23/2019 1 1 Reason for Visit * Reason Comments Chronic Kidney Disease * Auth/Cert Specialty Diagnoses / Procedures Referred By Contac t Referred To Contact Diagnoses Palpitations Procedures SANJAY Referral ID Status Reason Start Date Expiration Date Visits Re quested Visits Authorized [id number] 1 1 Encounter Details Date Type Department Care Team (Late st Contact Info) Description 01/20/2019 10:00 AM EDT Office Visit Cardiology at [address] [phone] Hussain Huffman MD [facility] [place] [address] Heart palpitations; Renovascular hypertension; Renal artery stenosis Social History Tobacco Use [...] Sign Reading Time Taken Comments Blood Pressure 127/89 01/20/2019 9:53 AM EDT Pulse 61 01/20/2019 9:53 AM EDT Temperature - - Respiratory Rate - - Oxygen Saturation 100% 01/20/2019 9:53 AM EDT Inhaled Oxygen Concentration - - Weight 61.1 kg (134 lb 12.8 oz) 01/20/2019 9:53 AM EDT Height 170.2 cm (5' 7) 01/20/2019 9:53 AM EDT Body Mass Index 21.11 01/20/2019 9:53 AM EDT documented in this encounter Progress Notes * Hussain Huffman MD - 01/20/2019 10:00 AM EDT Images from the original note were not included. [facility] [address] CARDIOLOGY OUTPATIENT FOLLOW-UP NOTE PRIMARY CARE PROVIDER: Rohit Anderson MD Subjective: Patient ID: Moshe Castillo is a 58 y.o. male patient who returns for follow up in the cardiovascularclinic. Chief Complaint Patient presents with ??? 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 Lives with his . 3 kids, ages 14 to 20. No tobacco use. Has 2 beers nightly. Family History: Father had CABG at age 52. Maternal uncle in his 50s due to an [place]. Paternal grandfather of an [place]. Exercise: Quite active. 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 Now runs [address]. Also basketball and yoga. He presents to the clinic after an unexpected hospitalization and 2 subsequent ED visits centering around renal artery pathology. Previously healthy, with essentially no medical history. November 2018 was the initial presentation. This included, most prominently, acute flank pain along with leg swelling, shortness of breath, and leg edema. He was hospitalized, and ultimately arrived at a diagnosis of left renal artery occlusion, which was presumed thromboembolic. Renal nuclear perfusion scan showed no flow to left kidney, so after much discussion, decision was ultimately made to defer angiography / attempt at stent. Anticoagulation and antihypertensive therapy were started. Since then, he presented to the ED twice, in part for symptoms of a fast heartbeat and chest anxiety that occurred several times, including during his son's [employer] basketball game and while eating dinner. Lasted 5-30 minutes each time. Noted increased urination afterward. Ruled out for [place], and a stress echocardiogram did not show ischemia. HTN was noted. Interestingly, the symptoms appear to have resolved since amlodipine was changed to verapamil. Now feeling essentially back to normal. Denies exertional chest discomfort, dyspnea, lightheadedness, syncope, palpitations, orthopnea, PND, and edema. Cr has been noted to be improving. Anticoagulation continues. Review of Systems Constitutional: Negative for chills, diaphoresis, fatigue, fever and unexpected weight change. HENT: Negative for nosebleeds and trouble swallowing. Eyes: Negative for visual disturbance. Respiratory: Negative for apnea, cough and wheezing. Cardiovascular: See HPI. Gastrointestinal: Negative for abdominal pain, blood in stool, diarrhea, nausea and vomiting. Endocrine: Negative for cold intolerance and heat intolerance. Genitourinary: Negative for difficulty urinating. Musculoskeletal: Negative for arthralgias and myalgias. Skin: Negative for rash. Neurological: Negative for speech difficulty, weakness and numbness. Hematological: Does not bruise/bleed easily. Psychiatric/Behavioral: Negative for dysphoric mood. The patient is not nervous/anxious. Current Outpatient Medications Medication Sig Dispense Refill ??? verapamil (CALAN-SR) 180 mg Tablet Sustained Release take 1 tablet by mouth once daily 0 ??? lisinopril (PRINIVIL;ZESTRIL) 10 mg Tablet take 1 tablet by mouth once daily 0 ??? acetaminophen (TYLENOL) 325 mg Tablet Take 2 tablets by mouth every 6 hours as needed for Pain or Fever. 90 tablet 1 ??? enoxaparin (LOVENOX) 80 mg/0.8 mL Syringe Inject 0.7 mLs subcutaneously 2 times daily. 60 each 5 No current facility-administered medications for this visit. Social History Tobacco Use ??? Smoking status: Never Smoker ??? Smokeless tobacco: Never Used Substance Use Topics ??? Alcohol use: Yes Alcohol/week: 8.4 oz Types: 14 Cans of beer per week Frequency: 4 or more times a week Drinks per session: 1 or 2 Objective: Most Recent Vitals: 01/20/19 0953 BP: 127/89 Pulse: 61 SpO2: 100% Physical Exam Constitutional: He appears well-developed and well-nourished. No distress. HENT: Head: Normocephalic and atraumatic. Eyes: No scleral icterus. Neck: No JVD present. Normal carotid upstrokes Cardiovascular: Normal rate, regular rhythm, normal heart sounds and intact distal pulses. Exam reveals no gallop and no friction rub. No murmur heard. Pulmonary/Chest: Effort normal and breath sounds normal. No respiratory distress. He has no wheezes. He has no rales. Abdominal: Soft. Bowel sounds are normal. He exhibits no distension. There is no tenderness. No abdominal bruit auscultated Musculoskeletal: He exhibits no edema. Neurological: He is alert. Skin: Skin is warm and dry. He is not diaphoretic. Psychiatric: He has a normal mood and affect. No results found for this or any previous visit (from the past 72 hour(s)). I have reviewed the pertinent laboratory data and imaging studies. Recent records reviewed as above. Lipid Panel Lab Results Component Value Date CHLPL 139 11/27/2018 HDL 41 11/27/2018 CHOLHDL 3.4 11/27/2018 LDLDIRECT 99 11/27/2018 No results for input(s): NA, K, CL, CO2, BUN, CREATININE, GLUCOSE in the last 168 hours. Assessment and Plan: Discussed his clinical course thus far in detail. Renal artery occlusion; differential diagnosis includes a thromboembolic event. As next step, applyZiopatch to rule out AF, particularly in setting of episodic palpitations. Continue anticoagulation. BP is acceptable. Continue current therapy. He has been waiting to resume exercise. Advised that a graduated exercise program is appropriate atthis point. We plan for a follow up consultation in Dr. René Phan's vascular medicine clinic after the Ziopatch results are available. -Cardiology follow-up scheduled for: ~[address] Phan, vascular clinic. I appreciate the opportunity to participate in this patient's cardiovascular care. Hussain Huffman MD, [facility], [facility] documented in this encounter Plan of Treatment Upcoming Encounters Date Type Department Care Team (Late st Contact Info) Description 06/16/2024 4:00 PM EDT Office Visit [place] [address] Betzaida Cope APRN [facility] [place] [address] 06/23/2024 2:00 PM EDT Appointment Non-[place] [phone] Owen Correia MD [facility] [place] [address] documented as of this encounter Results * Ziopatch (01/20/2019 11:06 [...] detected. ____ Interpreted by Mario Hart MD, [facility] Hussain Huffman MD CARDIAC SERVICES ORD ERABLES documented in this encounter Visit Diagnoses Diagnosis Heart palpitations Palpitations Renovascular hypertension Secondary renovascular hypertension, unspecified Renal artery stenosis Atherosclerosis of renal artery Heart palpitations Palpitations documented in this encounter Care Teams Camera Prototyping Engineer Relationship Specialty Start Date End Date Rohit Anderson MD [address] [facility] [address] [place] [address] PCP - General General Internal Medicine 12/18/18 documented as of this encounter
--- OUTSIDE RECORDS SUMMARY | 2024-06-09 02:57 | XMS_ITS | Encounter Summary ---
Author Organization Formerly [facility] [place] [address] Care Team Providers Care Wood Last Maker Name Role Phone oSnal Sorensen APRN Primary Care Provider [phone] Encounter Details Date Type Department Care Team (Late st Contact Info) Description 11/24/2018 12:05 AM EDT Ancillary Procedure Radiology Library at [facility] [place] [phone] Social History Tobacco Use Types Packs/Day Years Used Date Smoking Tobacco: Never Smokeless Tobacco: Never Sex and Gender Information Value Date Recorded Sex Assigned at Not on file Gender Identity Not on file Sexual Orientation Not on file documented as of this encounter Plan of Treatment Upcoming Encounters Date Type Department Care Team (Late st Contact Info) Description 06/16/2024 4:00 PM EDT Office Visit Ne[place] [phone] Betzaida Cope APRN [facility] [place] [address] 06/23/2024 2:00 PM EDT Appointment Non[place] [phone] Owen Correia MD [facility] [place] [address] documented as of this encounter Procedures Procedure Name Priority Date/Time Associated Diagnosis Comments FILM LIBRARY STORAGE ONLY CT CHEST STAT 11/24/2018 12:05 AM EDT documented in this encounter Results * Film Library- Storage Only CT Chest (11/24/2018 12:05 AM EDT) Narrative RAD - 11/27/2018 12:51 AM EDT This exam is auto-finalizing. It's purpose is for storage only. Mariza Flanagan MD IMG FILM LIBRARY OR DERABLES [place], [place] documented in this encounter Visit Diagnoses Not on filedocumented in this encounter Care Teams Wood Last Maker Relationship Specialty Start Date End Date Sonal Sorensen, FIGHTING VEHICLE SYSTEMS MAINTAINER PCP - General Family Medicine 02/21/18 12/17/18 documented as of this encounter
--- OUTSIDE RECORDS SUMMARY | 2024-06-09 02:57 | XMS_ITS | Encounter Summary ---
[place] [address] Care Team Providers Care Medical Cash Poster Name Role Phone Wilner Leone MD Primary Care Provider + Reason for Visit * Reason Comments Skin Check Encounter Details Date Type Department Care Team (Late st Contact Info) Description 10/31/2013 8:15 AM EST Office Visit Dermatology at [address] [address] Michael Arellano MD [address] [facility], [facility] A DERMATOLOGY [place], [place] [id number] Nevus (Primary Dx); Family history of malignant melanoma Social History Tobacco Use Types Packs/Day Years Used Date Smoking Tobacco: Never Sex and Gender Information Value Date Recorded Sex Assigned at Not on file Gender Identity Not on file Sexual Orientation Not on file documented as of this encounter Progress Notes * Michael Arellano MD - 10/31/2013 8:42 AM EST Problem: Skin check. Moshe is a 53-year-old gentleman who is referred today by Dr. Leone for a general skin check. He states that his mother who now lives in [place] has had a history of malignant melanoma but is alive and well. 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 There in the [facility], he states that he had almost an ongoing sunburn on his back and on his skin for much of the two and a half years. The patient states that there are no particular lesions of concern today. He did have a crusting, scabbing lesion on the underside of his nose that was present for a couple months, but it has now healed. Physical examination reveals a pleasant, 53-year-old gentleman who is blue eyed and has reddish-brown hair and has type II/III Mcintosh pigmentation. He is fair skinned. He has a number of solar lentigos over the upper shoulders and upper back. Fortunately, he has no crusting or scabbing lesions today on the underside of the nose near the nasal orifice. Careful examination of the head and neck, chest, back, hands, arms, forearms, thighs, calves, and the feet including toe web spaces and soles of the feet is benign. He does have a mucoid cyst near the right distal fourth toenail, near the proximal nail fold. He has a relative paucity of nevi on the lower back. Assessment and Plan: Benign skin examination with family history of malignant melanoma in mother. a. Patient reassured about benign examination today. b. Reinforced sun avoidance precautions. c. Informational brochure on skin cancer was given, and we discussed the ABCDs of melanoma. d. I recommended that I see the patient on an lvbvi-bibeg-tjzr basis for routine skin checks. He will do monthly skin checks in the meantime. Note: Half an hour was spent with the patient with more than one-half spent in counseling. COPY: Wilner Leone M.D. documented in this encounter Plan of Treatment Upcoming Encounters Date Type Department Care Team (Late st Contact Info) Description 06/16/2024 4:00 PM EDT Office Visit [place] [address] Betzaida Cope APRN [facility] [address] 06/23/2024 2:00 PM EDT Appointment Non-[place]vasive [place] [address] Owen Correia MD [facility] [place] [address] documented as of this encounter Visit Diagnoses Diagnosis Nevus- Primary Benign neoplasm of skin, site unspecified Family history of malignant melanoma Family history of other specified malignant neoplasm documented in this encounter Care Teams Medical Cash Poster Relationship Specialty Start Date End Date Wilner Leone MD [address] [place] [address] PCP - General 09/29/13 06/15/17 documented as of this encounter
--- OUTSIDE RECORDS SUMMARY | 2024-06-09 02:57 | XMS_ITS | Encounter Summary ---
Author Organization Formerly [facility] [place] [address] Care Team Providers Care Motor Grader Rough Grade Name Role Phone Sonal Sorensen APRN Primary Care Provider [phone] Encounter Details Date Type Department Care Team (Late st Contact Info) Description 11/24/2018 Ancillary Procedure Radiology Library at [facility] [place] [phone] Social History Tobacco Use Types Packs/Day Years [...] PM EDT Office Visit [place] [phone] Betzaida Cope APRN [facility] [place] [address] 06/23/2024 2:00 PM EDT Appointment Non[place] [phone] Owen Correia MD [facility] [place] [address] documented as of this encounter Procedures Procedure Name Priority Date/Time Associated Diagnosis Comments FILM LIBRARY STORAGE ONLY DX CHEST STAT 11/24/2018 12:00 AM EDT documented in this encounter Results * Film Library- Storage Only DX Chest (11/24/2018 12:00 AM EDT) Narrative RAD - 11/27/2018 12:46 AM EDT This exam is auto-finalizing. It's purpose is for storage only. Mariza Flanagan MD IMG FILM LIBRARY OR DERABLES [place], [place] documented in this encounter Visit Diagnoses Not on filedocumented in this encounter Care Teams Motor Grader Rough Grade Relationship Specialty Start Date End Date Sonal Sorensen, PRODUCTION GRAPHIC DESIGNER PCP - General Family Medicine 02/21/18 12/17/18 documented as of this encounter
--- OUTSIDE RECORDS SUMMARY | 2024-06-09 02:57 | XMS_ITS | Encounter Summary ---
[place] [address] Care Team Providers Care Synchro Assembler Name Role Phone Sonal Sorensen SANTIAGO Primary Care Provider [phone] Reason for Visit * Reason Comments Follow-up Skin Check Encounter Details Date Type Department Care Team (Late st Contact Info) Description 02/21/2018 4:00 PM EDT Office Visit Dermatology at [address] [place] [address] Michael Arellano MD [address] [place] [address], [facility] [place] [address] Family history of malignant melanoma; Nevus Social History Tobacco Use Types Packs/Day Years Used Date Smoking Tobacco: Never Smokeless Tobacco: Never Sex and Gender Information Value Date Recorded Sex Assigned at Not on file Gender Identity Not on file Sexual Orientation Not on file documented as of this encounter Progress Notes * Michael Arellano MD - 02/21/2018 4:00 PM EDT Problem 1. 3 year skin checkup. 2. 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 Family history of malignant melanoma Moshe follows up and would like an repeat skin checkup. The examination was a pleasant 57-year-old gentleman who is blue-eyed with reddish-brown hair and has type II/III Mcintosh pigmentation. He has solar lentigo's and ephilids over the upper central back in a v like distribution a bit over the upper shoulders and upper chest. He has no crusting scabbing lesions on the nose although he is complained about this also back in and in 2014. Examinationof the head and the neck the chest the back the hands informs thighs and calves are benign Assessment plan: Benign skin examination the patient with a history of sun exposure in [place] and family history of malignant melanoma 1. Patient reassured about his benign skin examination 2. Recommend that he continues on with precautions 3. Return to clinic in another 3 years for repeat check Staph nasal carriage, probable 1. If recurs, would recommend that we call in a prescription for Bactroban ointment to apply 3 times daily basis for 5 days documented in this encounter Plan of Treatment Upcoming Encounters Date Type Department Care Team (Late st Contact Info) Description 06/16/2024 4:00 PM EDT Office Visit Nephrology Hypertension at [place] [phone] Betzaida Cope APRN [facility] [place] [address] 06/23/2024 2:00 PM EDT Appointment Non-Invasive Cardiology Lab [place] [phone] Owen Correia MD [facility] [place] [address] documented as of this encounter Visit Diagnoses Diagnosis Family history of malignant melanoma Family history of other specified malignant neoplasm Nevus Benign neoplasm of skin, site unspecified documented in this encounter Care Teams Synchro Assembler Relationship Specialty Start Date End Date Sonal Sorensen APRN PCP - General Family Medicine 02/21/18 12/17/18 documented as of this encounter
--- OUTSIDE RECORDS SUMMARY | 2024-06-09 02:57 | XMS_ITS | Encounter Summary ---
Author Organization [facility] [place] [address] Care Team Providers Care Student Loan Counselor Name Role Phone Sonal Sorensen APRN Primary Care Provider [phone]- [phone] Encounter Details Date Type Department Care Team (Late st Contact Info) Description 11/29/2018 2:30 PM EDT Ancillary Procedure Radiology Library at [facility] [place] [phone] Social History Tobacco Use Types Packs/Day Years [...] PM EDT Office Visit Ne[place] [phone] Betzaida Cope APRN [facility] [place] [address] 06/23/2024 2:00 PM EDT Appointment Non[place] [phone] Owen Correia MD [facility] [place] [address] documented as of this encounter Procedures Procedure Name Priority Date/Time Associated Diagnosis Comments REQUEST FOR 2ND READ CT CHEST Routine 11/29/2018 2:02 PM EDT documented in this encounter Results * Request For 2nd Read CT Chest (11/29/2018 2:02 PM EDT) Anatomical Region Laterality Modality Chest SO Impressions 11/30/2018 9:22 AM EDT Subpleural parenchymal opacity in the right lower lobe on axial images is elongate and branching on sagittal reconstruction, likely an area of parenchymal scarring or organizing-type inflammatory/infectious change. ??Noncontrast chest CT follow-up in 6 weeks to 3 months is suggested to ??assess resolution/improvement versus persistence. Thank you for letting us participate in the care of this patient. For questions regarding this report, please contact the number below. ? Narrative 11/30/2018 9:22 AM EDT EXAMINATION: REQUEST FOR 2ND READ CT CHEST CLINICAL HISTORY: 58M with new critical left renal artery stenosis with SOB and findings on CT chest at [facility] with concern for bronchioliitis. We are concerned for vasculitis v malignancy; What Modality is the exam? CT Scan; Body Part (please add comments as necessary): CT Chest; I believe a reinterpretation of this exam may alter care of Patient. Yes TECHNIQUE: Axial contiguous sections were obtained through the chest via helical acquisition after intravenous contrast administration on 11/24/2018 at [facility]. PE protocol was performed. Coronal and sagittal reconstructions were generated. COMPARISON: None FINDINGS: Tiny focal area of tree-in-bud type opacity in the anterior right upper lobe see series 4 images 42 through 44 Tiny area of peripheral bronchiectasis/bronchiolectasis at the base of the medial segment of the right middle lobe, associated with thin linear scarring, see series 4 images 72 through 83. Focal subsegmental atelectasis at the right lung base above a slightly lobulated fat-containing Bochdalek hernia of the diaphragm. Subpleural parenchymal opacity in the right lower lobe extending from series 4 images 86 through 96 is elongate and branching on sagittal reconstruction series 10 image 104, likely an area of parenchymal scarring or organizing-type inflammatory/infectious change. No endobronchial opacities. No thoracic lymphadenopathy. No pulmonary arterial filling defects are seen. Scattered mild mixed density, predominantly calcific, atherosclerotic plaque of aortic arch near branch vessel origins. Eccentric predominantly noncalcified plaque along the proximal descending thoracic aorta. Known severe/critical stenosis of the proximal left renal artery, best demonstrated on coronal series 7 image 40. No pleural or pericardial effusion. Mild to moderate ascites in the imaged portion of the upper abdomen. Mild to moderate endplate degenerative changes of thoracic spine vertebral bodies. Procedure Note Estephania Campos MD - 11/30/2018 EXAMINATION: REQUEST FOR 2ND READ CT CHEST CLINICAL HISTORY: 58M with new critical left renal artery stenosis withSOB and findings on CT chest at [facility] with concern for bronchioliitis. We areconcerned for vasculitis v malignancy; What Modality is the exam? CT Scan; BodyPart (please add comments as necessary): CT Chest; I believe a reinterpretationof this exam may alter care of Patient. Yes TECHNIQUE: Axial contiguous sections were obtained through the chest viahelical acquisition after intravenous contrast administration on 11/24/2018 at [facility]. PE protocol was performed. Coronaland sagittal reconstructions were generated. COMPARISON: None FINDINGS: Tiny focal area of tree-in-bud type opacity in the anterior right upperlobe see series 4 images 42 through 44 Tiny area of peripheral bronchiectasis/bronchiolectasis at the base ofthe medial segment of the right middle lobe, associated with thin linearscarring, see series 4 images 72 through 83. Focal subsegmental atelectasis at the right lung base above a slightlylobulated fat-containing Bochdalek hernia of the diaphragm. Subpleural parenchymal opacity in the right lower lobe extending fromseries 4 images 86 through 96 is elongate and branching on sagittal reconstructionseries 10 image 104, likely an area of parenchymal scarring or organizing-type inflammatory/infectious change. No endobronchial opacities. No thoracic lymphadenopathy. No pulmonary arterial filling defects are seen. Scattered mild mixed density, predominantly calcific, atheroscleroticplaque of aortic arch near branch vessel origins. Eccentric predominantly noncalcified plaque along the proximaldescending thoracic aorta. Known severe/critical stenosis of the proximal left renal artery, best demonstrated on coronal series 7 image 40. No pleural or pericardial effusion. Mild to moderate ascites in the imaged portion of the upper abdomen. Mild to moderate endplate degenerative changes of thoracic spinevertebral bodies. IMPRESSION Subpleural parenchymal opacity in the right lower lobe on axial imagesis elongate and branching on sagittal reconstruction, likely an area ofparenchymal scarring or organizing-type inflammatory/infectious change. Noncontrastchest CT follow-up in 6 weeks to 3 months is suggested to assess resolution/improvement versus persistence. Thank you for letting us participate in the care of this patient. Forquestions regarding this report, please contact the number below. Parth Frias MD IMG OUTSIDE INTERPRE TATION ORDERABLES documented in this encounter Visit Diagnoses Not on filedocumented in this encounter Care Teams Student Loan Counselor Relationship Specialty Start Date End Date Sonal Sorensen APRN PCP - General Family Medicine 02/21/18 12/17/18 documented as of this encounter
--- OUTSIDE RECORDS SUMMARY | 2024-06-09 02:57 | XMS_ITS | Encounter Summary ---
Author Organization [facility] [place] [address] Care Team Providers Care Esthetician Spa Name Role Phone Sonal Sorensen APRN Primary Care Provider [phone]- [phone] Encounter Details Date Type Department Care Team (Late st Contact Info) Description 11/26/2018 Ancillary Procedure Radiology Library at [facility] [place] [phone] Social History Tobacco Use Types Packs/Day Years [...] PM EDT Office Visit Nephrology [place] [phone] Betzaida Cope APRN [facility] [address] 06/23/2024 2:00 PM EDT Appointment Non[place] [phone] Owen Correia MD [facility] [address] documented as of this encounter Procedures Procedure Name Priority Date/Time Associated Diagnosis Comments FILM LIBRARY STORAGE ONLY CT ABDOMEN AND PELVIS STAT 11/26/2018 12:00 AM EDT documented in this encounter Results * Film Library- Storage Only CT Abdomen & Pelvis (11/26/2018 12:00 AM EDT) Narrative RAD - 11/27/2018 12:45 AM EDT This exam is auto-finalizing. It's purpose is for storage only. Mariza Flanagan MD IMG FILM LIBRARY OR DERABLES [place], [place] documented in this encounter Visit Diagnoses Not on filedocumented in this encounter Care Teams Esthetician Spa Relationship Specialty Start Date End Date Sonal Sorensen, ASSISTED LIVING HOUSEKEEPER PCP - General Family Medicine 02/21/18 12/17/18 documented as of this encounter
--- OUTSIDE RECORDS SUMMARY | 2024-06-09 02:57 | XMS_ITS | Encounter Summary ---
Author Organization [facility] [address] Care Team Providers Care Record Press Operator Name Role Phone Sonal Sorensen APRN Primary Care Provider [phone]- [phone] Encounter Details Date Type Department Care Team (Late st Contact Info) Description 11/27/2018 4:30 AM EDT Ancillary Procedure Radiology Library at [facility] [place] [phone] Social History Tobacco Use Types Packs/Day Years [...] PM EDT Office Visit Neph[place] [phone] Betzaida Cope APRN [facility] [place] [address] 06/23/2024 2:00 PM EDT Appointment Non[place] [phone] Owen Correia MD [facility] [place] [address] documented as of this encounter Procedures Procedure Name Priority Date/Time Associated Diagnosis Comments REQUEST FOR 2ND READ CT ABDOMEN AND PELVIS Routine 11/27/2018 4:18 AM EDT documented in this encounter Results * Request For 2nd Read CT Abdomen & Pelvis (11/27/2018 4:18 AM EDT) Anatomical Region Laterality Modality Abdomen, Pelvis SO Impressions 11/27/2018 6:18 AM EDT 1. ??Delayed left nephrogram, secondary to renal artery stenosis, given focal severe narrowing at the origin of the left renal artery on recent comparison study. 2. ??Small to moderate volume low density ascites throughout the abdomen and pelvis. Thank you for letting us participate in the care of this patient. For questions regarding this report, please contact the number below. ? Narrative 11/27/2018 6:18 AM EDT EXAMINATION: REQUEST FOR 2ND READ CT ABDOMEN AND PELVIS CLINICAL HISTORY: 58 y/o M with renal failure, particularly interested in interpretation of the left kidney; What Modality is the exam? CT Scan; Body Part (please add comments as necessary): abdomen/pelvis; I believe a reinterpretation of this exam may alter care of Patient. Yes TECHNIQUE: Outside hospital reinterpretation of CT of the abdomen and pelvis performed without intravenous contrast. Study performed at [facility] at 1645 hours, November 26, 2018 COMPARISON: Correlation made with contrast-enhanced CT PE from November 24, 2018 FINDINGS: The absence of intravenous contrast limits the evaluation of solid viscera and vasculature. Lower chest: Minimal linear atelectasis. Liver: Normal attenuation, no focal lesion. There is mild periportal edema. Bile ducts: ??No intra or extrahepatic bile duct dilation. Gallbladder: Minimally distended gallbladder contains hyperdense material that is likely from residual vicarious excretion of contrast. Pancreas: Normal attenuation. No duct dilation. Spleen: Normal attenuation. Adrenals: Normal. Kidneys: Delayed left nephrogram, with persistent corticomedullary enhancement likely from contrast administered from recent CT study dated November 24, 2018. On that study, there is focal severe narrowing at the origin of the left renal artery, coronal series 7 image 40. Normal unenhanced appearance of the right kidney. Vasculature: Scattered calcified atherosclerosis of a mildly tortuous abdominal aorta and bilateral common iliac arteries.. Lymph Nodes: No enlarged lymph nodes. Bowel and mesentery: There is no abnormal bowel dilation or notable wall thickening. There is a normal air-filled appendix. There is a large volume of stool throughout the otherwise normal large bowel. ?? Peritoneum: Small to moderate volume of low density ascites throughout the abdomen and pelvis. No loculated fluid collection. No free air. Urinary Bladder: Normal distention. No bladder wall thickening. Reproductive organs: Mild predominantly lower body wall edema. Osseous structures: No suspicious lesions. Mild multilevel degenerative changes of the lower thoracic and lumbar spine most severe at L5-S1. Minimal retrolisthesis of L5 on S1. Procedure Note Atiya Fan MD - 11/27/2018 EXAMINATION: REQUEST FOR 2ND READ CT ABDOMEN AND PELVIS CLINICAL HISTORY: 58 y/o M with renal failure, particularly interestedin interpretation of the left kidney; What Modality is the exam? CT Scan;Body Part (please add comments as necessary): abdomen/pelvis; I believe areinterpretation of this exam may alter care of Patient. Yes TECHNIQUE: Outside hospital reinterpretation of CT of the abdomen and pelvisperformed without intravenous contrast. Study performed at [facility] at 1645 hours, November 26, 2018 COMPARISON: Correlation made with contrast-enhanced CT PE from November 24, 2018 FINDINGS: The absence of intravenous contrast limits the evaluation ofsolid viscera and vasculature. Lower chest: Minimal linear atelectasis. Liver: Normal attenuation, no focal lesion. There is mild periportaledema. Bile ducts: No intra or extrahepatic bile duct dilation. Gallbladder: Minimally distended gallbladder contains hyperdense materialthat is likely from residual vicarious excretion of contrast. Pancreas: Normal attenuation. No duct dilation. Spleen: Normal attenuation. Adrenals: Normal. Kidneys: Delayed left nephrogram, with persistent corticomedullaryenhancement likely from contrast administered from recent CT study dated November. On that study, there is focal severe narrowing at the origin of the leftrenal artery, coronal series 7 image 40. Normal unenhanced appearance of the right kidney. Vasculature: Scattered calcified atherosclerosis of a mildly tortuousabdominal aorta and bilateral common iliac arteries.. Lymph Nodes: No enlarged lymph nodes. Bowel and mesentery: There is no abnormal bowel dilation or notable wall thickening. There is a normal air-filled appendix. There is a large volumeof stool throughout the otherwise normal large bowel. Peritoneum: Small to moderate volume of low density ascites throughoutthe abdomen and pelvis. No loculated fluid collection. No free air. Urinary Bladder: Normal distention. No bladder wall thickening. Reproductive organs: Mild predominantly lower body wall edema. Osseous structures: No suspicious lesions. Mild multilevel degenerativechanges of the lower thoracic and lumbar spine most severe at L5-S1. Minimal retrolisthesis of L5 on S1. IMPRESSION 1. Delayed left nephrogram, secondary to renal artery stenosis, givenfocal severe narrowing at the origin of the left renal artery on recentcomparison study. 2. Small to moderate volume low density ascites throughout the abdomenand pelvis. Thank you for letting us participate in the care of this patient. Forquestions regarding this report, please contact the number below. Mariza Flanagan MD IMG OUTSIDE INTERPR ETATION ORDERABLES documented in this encounter Visit Diagnoses Not on filedocumented in this encounter Care Teams Record Press Operator Relationship Specialty Start Date End Date Sonal Sorensen APRN PCP - General Family Medicine 02/21/18 12/17/18 documented as of this encounter
--- OUTSIDE RECORDS SUMMARY | 2024-06-09 02:57 | XMS_ITS | Encounter Summary ---
[place] [address] Care Team Providers Care District Wire Chief Name Role Phone Zulema Sorensenbia [place] APRN Primary Care Provider [phone] Reason for Referral * Diagnostic Test (Routine) - Closed Specialty Diagnoses / Procedures Referred By Contac t Referred To Contact Radiology Diagnoses Renal artery stenosis Procedures NM Renal, Anatomic Scan NM Renal w Function Study Karolyn Nicholson MD [facility] [place] [address] [place] [address] Referral ID Status Reason Start Date Expiration Date V isits Requested Visits Authorized [id number] Closed Specialty Service Requested 12/01/2018 12/01/2019 2 2 Reason for Visit * Reason Comments Flank Pain left * Auth/Cert Specialty Diagnoses / Procedures Referred By Contac t Referred To Contact Diagnoses Elevated serum creatinine Flank pain Procedures EMERGENCY IPI Referral ID Status Reason Start Date Expiration Date Visits Re quested Visits Authorized [id number] 1 1 Encounter Details Date Type Department Care Team (Latest Contact Info) Description 11/26/2018 10:35 PM EDT - 12/01/2018 3:01 PM EDT Hospital Encounter 1 [place] [address] Mariza Flanagan MD [facility] [place] [address] [place] [address] [place] [address] Flank pain; Elevated serum creatinine; Renal artery stenosis Discharge Disposition: Home Social [...] Sign Reading Time Taken Comments Blood Pressure 129/78 12/01/2018 12:50 PM EDT Pulse 68 12/01/2018 12:50 PM EDT Temperature 37.7 ??C (99.9 ??F) 12/01/2018 12:50 PM E DT Respiratory Rate 18 12/01/2018 12:50 PM EDT Oxygen Saturation 96% 12/01/2018 12:50 PM EDT Inhaled Oxygen Concentration - - Weight 68.5 kg (151 lb 1.6 oz) 11/30/2018 7:21 A M EDT Height 170.2 cm (5' 7) 11/26/2018 8:57 PM EDT Body Mass Index 23.67 11/26/2018 8:57 PM EDT documented in this encounter Discharge Summaries * Manuel Martin MD - 12/01/2018 9:09 AM EDT Discharge Summary Patient Name: Levi Bravo Patient Age: 58 y.o. Language: Eritrean Race: White Ethnicity: Not nor Admit date: 11/26/2018 Discharge date and time: 12/01/18 1:38 PM Attending Physician: Manuel Martin MD Discharge Physician: Karolyn Nicholson MD Follow-up Recommendations for Providers: 1.) Patient to follow up with Nephrology and Interventional Radiology on 12/09 for consideration of left renal artery stenting along. Nuclear medicine perfusion scan is scheduled for 12/05. 2.) Patient currently on therapeutic Lovenox (enoxaparin) pending re-evaluation by IR/vascular surgery and discussion of long-term anticoagulation plan. He should remain anticoagulated for at least 6months following discharge. May consider transition to warfarin following evaluation next week. At end of 6 weeks, consider complete hypercoagulable workup. 3.) Several rheumatologic studies (e.g. ANCA panel) still pending at time of discharge. Etiology ofrenal artery stenosis remains unclear. 4.) Bleeding hemorrhoids were evaluated during hospitalization but not intervened upon (as non-emergent). Given these along with possible thrombotic event, he should undergo colonoscopy in the comingweeks/months. Inpatient Provider Contact Information: For questions regarding this document or issues relating to this hospitalization on the Medical Service, please contact your inpatient physician through the [facility] [employer] . Issues afterhours and on weekends will be handled by the Hospitalist staff on-call. Discharge Diagnoses (Hospital Problems) and Secondary Diagnoses (Chronic Problems): Active Hospital Problems Diagnosis ??? Elevated serum creatinine ??? Flank pain ??? Renal artery stenosis Resolved Hospital Problems No resolved problems to display. Active Non-Hospital Problems Diagnosis ??? Nevus ??? Family history of malignant melanoma Operations/Major Procedures: Operations: Other Major Procedures: N/A History of Presentation (per H&P 11/27/18): Levi Bravo is a 58 y.o. male with no significant medical history who presents with a chief complaint of left flank pain. ?? He was in his usual state of health until 5 days ago. He felt his abdomen was distended and uncomfortable. Tums did not help. This was associated with shortness of breath at rest. It was not associated with nausea or vomiting, change in bowel habits, difficulty with urination, hematuria, or pain with urination. He denies swelling in his legs at that time. The SOB has been intermittent and most recently today. It is characterized by tachypnea, no difficulty with inspiration or expiration, no wheezing or pleurisy. He has had a nonproductive cough. ?? The next day, he felt his heart rate was low. The third day (two days ago), he found his blood pressure to be 180, which was high for him. This prompted him to go to his local ED for evaluation. He was diagnosed with MUSA as well as PNA based on imaging of the chest. He received IV fluids and was discharged on steroids and antibiotics. He developed swelling in the legs following discharge from theED as well as a 12 lb weight gain. He says his urine output was normal. ?? He was prompted to seek medical attention again yesterday at his local ED because of bloating, generally not feeling well and left flank pain. The pain is dull in quality with onset in the afternoon.It had a sudden increase to 8/10 in severity later in the day. Radiates around the front. Waxed an waned in severity over time but since coming to the ED here it has been persistently intense. Flexion of the left leg improves the pain. Nothing makes the pain worse. Wanted to seek care at this hospital and so he had took private transportation. ?? He denies any fevers, chills, sweats, chest pain/pressure, blurry or double vision, bruising or easy bleeding, or dark or tarry stools. He had a CHRISTIANSON at the onset of symptoms which resolved promptly with ibuprofen. Denies sick contacts. ?? Lives with and children at home. Never smoker, has 1-2 drinks per day. 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 Hospital Course: Mr. Bravo was admitted to Hospital Medicine on 11/26/18. Nephrology, interventional radiology, and vascular surgery teams were consulted. ?? # Acute renal failure, HTN 2/2 newly dx'd left DON # Fever of unknown origin likely 2/2 left renal necrosis v. infection He was found to have severe left renal artery stenosis complicated by non- oliguric MUSA and hypertensive urgency. CT showed some flow to his left kidney while duplex did not show flow. A subsequent MRA of the kidney showed critical stenosis with downstream infarcts of the superior to third of the left renal cortex. The plan for revascularization was changed a few times because of the complexity ofthis case. Considering the duration of ischemia to the left kidney recovery of renal function in that kidney from a stent is unlikely, though not impossible. Mr. Bravo had a long discussion with Dr. Castellano regarding the risks and benefits of renal angiogram the day before discharge and decided to think more about the procedure as an outpatient. We switched him on Lovenox the day of discharge, and vascular surgery recommended a 6-month course of anticoagulation post discharge. ?? Regarding the etiology of his renal artery stenosis, we were considering atherosclerosis, an embolic event, and vasculitis. TTE did not show thrombi in the LA or LV; it also ruled out PFO. We worked up autoimmune/vasculitis causes. His C3 and C4 were not low, and DELON was negative. ANCA studies werepending on day of discharge. In regards to his fever, patient was consistently febrile starting hospital day 2. Infectious workup overall negative. Most likely etiology is inflammatory response secondary to kidney ischemia from renal artery stenosis. Treated symptomatically with tylenol throughout course. ?? #Shortness of Breath likely 2/2 Atalectasis v PNA v malignancy Patient complained on intermittent SOB on day of admission through hospital day 2. CXR unrevealing and 2nd read of CT Chest suggests small focal finding concerning for infectious v inflammatory response. Though he had received 2 days of azithromycin, this was not continued due to unconvicncing evidence of pulmonary infection overall. He improved without further intervention. Suggest follow up CT Chest in 6 weeks - 3 months. # Hypertension secondary to unilateral renal artery stenosis He needed doses of hydralazine IV PRNson hospital day 1, but his BP has been well-controlled on amlodipine 5mg alone from hospital day 1 to discharge otherwise. He will continue on amlodipine on discharge. #Hemorrhoids - External There was some minor bleeding (staining the hospital gown and toilet paper) on hospital day 3, and colorectal surgery was consulted. These were deemed non- urgent and the risks with sclerosis were thought to outweigh the possible benefit. He should, however undergo a colonoscopy in the coming weeks/months given thrombotic event. Vital Signs at Discharge: BP: 129/78, Heart Rate: 68, Temp: 37.7 ??C (99.9 ??F), Resp: 18, BMI (Calculated): 21.61 Height: 170.2 cm (5' 7) (11/26/182056) Weight: 68.5 kg (151 lb 1.6 oz) (11/30/18 0721) Functional and Cognitive Status: Independent, cognitively intact. Important Studies and Lab Data: Labs: Last wbc, hgb, hct plt Recent Labs 12/01/18 0600 WBC 8.2 HGB 11.3* HCT 33.8* Last 3 Lytes Recent Labs 12/01/18 0600 11/30/18 0456 11/29/18 0456 NA 140 138 137 K 3.8 3.7 3.8 CL 104 104 102 CO2 25 24 24 BUN 14 14 12 CREATININE 1.32 1.36 1.49 Last CRP, SEDRATE Recent Labs 11/29/18 0456 CRP 118.1* SEDRATE 24* Studies: CT Chest 11/30: IMPRESSION Subpleural parenchymal opacity in the right lower lobe on axial images is elongate and branching on sagittal reconstruction, likely an area of parenchymal scarring or organizing-type inflammatory/infectious change. ??Noncontrast chest CT follow-up in 6 weeks to 3 months is suggested to ??assess resolution/improvement versus persistence. ?? CXR 11/28 IMPRESSION Small left pleural effusion with associated left lower lobe opacities favored to represent compressive atelectasis. ?? MRI Angiogram Abdomen wwo Contrast 11/28 IMPRESSION 1. ??Critical stenosis at the origin of the left renal artery, with segmental areas of decreased perfusion/nonenhancement predominantly involving the mid to upper pole as well as wedge-shaped segmental focus in the lower pole representing renal infarcts. 2. ??Small to moderate ascites. ?? TTE with Bubble Study 11/28 SUMMARY: 1. The left ventricular chamber size is normal. Left ventricular wall thickness is normal. There is normal global left ventricular systolic function. The quantitative left ventricular ejection fraction by biplane Brown's method is 63%. There are no left ventricular segmental wall motion abnormalities. Doppler assessment is consistent with normal left sided filling pressure. 2. The right ventricle is probably normal in size. Right ventricular global systolic function is normal. The estimated pulmonary artery systolic pressure is 43 mmHg. The estimated right atrial pressure is 15 mmHg. The inferior vena cava appears dilated. 3. There is no evidence of a patent foramen ovale by either color Doppler or agitated saline injection. There is normal bi-atrial size. 4. There is no hemodynamically significant valve disease. 5. See report above for remainder of findings. ?? Renal Duplex 11/27 Interpretation: Right: Patent main renal artery with no evidence of hemodynamically significant stenosis. ?? Left: There is no identifiable flow by duplex in what is suspected to be the main renal artery; suspect occlusion. No arterial flow identified within the kidney. Patent renal vein. ?? Comparison: ??No previous study in our vascular lab database for comparison. ?? 2nd read CT ab/pelvis 11/27: 1. ??Delayed left nephrogram, secondary to renal artery stenosis, given focal severe narrowing at the origin of the left renal artery on recent comparison study. 2. ??Small to moderate volume low density ascites throughout the abdomen and pelvis. Microbiology Results (Last 30 days) Procedure Component Value Units Date/Time Blood culture [[id number]] Collected: 11/28/18 2304 Lab Status: Preliminary result Specimen: Blood Updated: 12/01/18 0702 Blood Culture No growth at 2 days. Blood culture [[id number]] Collected: 11/28/18 0700 Lab Status: Preliminary result Specimen: Blood Updated: 11/30/18 1502 Blood Culture No growth at 2 days. Blood culture [[id number]] Collected: 11/28/18 0656 Lab Status: Preliminary result Specimen: Blood Updated: 11/30/18 1502 Blood Culture No growth at 2 days. Pending Studies and Lab Data: ANCA studies still pending Discharge Conditions/Prognosis: Upon discharge the patient is hemodynamically stable, fully ambulatory without requiring supplemental oxygen, afebrile and pain controlled with stable oral regimen. Discharge to: Home Updated Allergies/ADRs: Allergies Allergen Reactions ??? Pseudafen [Pseudoephedrine Hcl] Immunizations Given this Hospitalization: There is no immunization history on file for this patient. Discharge Medications: Your Medications New Medications Dose Details acetaminophen 325 mg Tab Commonly known as: TYLENOL Take 2 tablets by mouth every 6 hours as needed for Pain or Fever. 650 mg Quantity: 90 tablet Refills: 1 amLODIPine 5 mg Tab Commonly known as: NORVASC Take 1 tablet by mouth daily. Start taking on: 12/02/2018 5 mg Quantity: 90 tablet Refills: 3 docusate sodium 100 mg Cap Commonly known [...] 1 each Quantity: 30 g Refills: 0 simethicone 40 mg/0.6 mL Drps Commonly known as: Mylicon Take 0.6 mLs by mouth every 6 hours as needed. 40 mg Quantity: 30 mL Refills: 0 Continued medications, unchanged Dose Details ketoconazole 2 % Crea Commonly known as: NIZORAL Apply topically daily. Refills: 0 STOPPED Medications azithromycin 250 mg Tab Commonly known as: ZITHROMAX ibuprofen 400 mg Tab Commonly known as: ADVIL;MOTRIN predniSONE 20 mg Tab Commonly known as: DELTASONE Smoking Status at Discharge: Social History Tobacco Use Smoking Status Never Smoker Smokeless Tobacco Never Used Instructions Given to Patient at Discharge: Patient Instructions Patient Instructions on Discharge to Home It was a pleasure taking care of you and getting to know your family. Why you were hospitalized: You were found to have severe left renal artery stenosis. The plan going forward depends on your decision based on your discussion with Dr. Castellano regarding the risks and benefits of renal angiogram and stenting of the renal artery. The current plan is to look at the kidney function by perfusion scan before the scheduled arteriogram next Wednesday. New Medications: Lovenox 70mg subcutaneously twice daily: this is a anticoagulation medication that you will give yourself through injections as instructed by your nurse while you were in the hospital. Amlodipine 5mg daily - for high blood pressure Docusate - we recommend this as a gentle stool softener for as-needed use. Medication Changes: Azithromycin and prednisone not necessary. When to call your doctor: - Worsening flank pain and/or fever - Chest pain, worsening shortness of breath, fatigue with usual exertion, or new rest/night time symptoms. - Weigh yourself daily and record; if you note an increase of more than 2-3 pounds in 2 days, or 5 pounds over a week, contact your health care provider. - If you become short of breath, cannot lie down to sleep, or have swelling in your legs/ankles or abdomen, contact your health care provider. - Call if you have reduced urination during the day or increased urination at night. - Call for signs of increased wound drainage, redness, swelling, or increased pain at the site of your cardiac cath. If you have non-emergent questions between now and the time of your follow up appointments: Call your primary care provider Activity level: - No heavy lifting (more than five pounds) for 48 hours; no more than 10 pounds for one week. - You may return to work in 1 week. Use common sense. Don't exhaust yourself. - No hunting, skiing, jogging, snow shoveling, snowmobiling, lawn mowing, swimming, golf or tennis until after your return appointment with your family doctor. - Do not ride motorcycles, tractors or horses until cleared by your doctor. Diet: - Heart healthy: low salt, low fat, low concentrated sweets. Remember to avoid added salt, canned foods, processed foods (ie hot dogs, sausage, cold meats), and foods naturally high in salt, such as potato chips or pizza. Exercise: - As tolerated. Follow up Appointments: Nuclear Medicine perfusion scan (no intervention) - Wednesday12/05/18 @ 9:45am arrival time, 12pm scan time @ [facility] Arteriography (with or without intervention) - 12/09/09 - 7:30am appointment Future Appointments Date Time Provider Department Center 12/05/2018 10:00 AM [facility] Nuc Med Leb Rad Clin 12/05/2018 12:00 PM [facility] NM ROOM 1 Nuc Med Leb Rad Clin 12/09/2018 7:30 AM [facility] IR ROOM 1 IR Leb Rad Clin 02/25/2021 4:00 PM Michael Arellano MD [facility] Appointment with PCP: Consuelo Flores APRN, December 05 @ 11am Your Inpatient Doctor(s) at [facility]: Manuel Martin MD - Attending physician Your Primary Care Provider: Sonal Sorensen APRN [address] / [place] [address] For questions regarding issues relating to your hospitalization on the Hospital Medicine Service, please contact your inpatient physician through the [facility] [employer] [phone]. Issues after hours and on weekends will be handled by the Hospitalist staff on-call. General Instructions None Future Appointments and Orders Future Appointments and Orders Future Appointments Provider Department Dept Phone 12/05/2018 10:00 AM [facility] Nuclear Medicine at at [facility] Arrive at: [facility] [phone] 12/05/2018 12:00 PM [facility] ROOM 1 Nuclear Medicine at at [facility] Arrive at: [facility] [phone] 02/25/2021 4:00 PM Michael Arellano MD Dermatology at [place] [phone] Future Orders Complete By [facility] Renal w Function Study [NO CPT CODE Custom] 12/09/2018 06/10/2019 Process Instructions: Scheduling Instructions: Comments: Questions: Where will study be performed?: [facility] Laterality: Left Reason for exam and clinical history: left renal artery stenosis, unclear utility of arterial stenting or other revascularization, please assess functional mass of left kidney. Other pertinent information: To be performed in AM prior to arteriogram on 12/09 Stat read required?: Does patient require sedation?: GA rationale: Date of injury if applicable: Requested Time: Discharge References/Attachments None Karolyn Nicholson MD Hospital Medicine Service Attending Documentation Please see Dr. Nicholson 's note for details of the patient history of presentation and data. I have discussed, reviewed and agree with the documented History, Physical findings, Assessment and Discharge Plan of care. I have examined the patient myself and personally reviewed all studies. Discharge plans were discussed and the family expressed understanding and agreement. Additions to the history, physical, assessment and discharge plan included above. MANUEL MARTIN MD documented in this encounter Discharge Instructions * Patient Instructions* Karolyn Nicholson MD - 12/01/2018 8:28 AM EDT Patient Instructions on Discharge to Home It was a pleasure taking care of you and getting to know your family. Why you were hospitalized: You were found to have severe left renal artery stenosis. The plan going forward depends on your decision based on your discussion with Dr. Castellano regarding the risks and benefits of renal angiogram and stenting of the renal artery. The current plan is to look at the kidney function by perfusion scan before the scheduled arteriogram next Wednesday. New Medications: Lovenox 70mg subcutaneously twice daily: this is a anticoagulation medication that you will give yourself through injections as instructed by your nurse while you were in the hospital. Amlodipine 5mg daily - for high blood pressure Docusate - we recommend this as a gentle stool softener for as-needed use. Medication Changes: Azithromycin and prednisone not necessary. When to call your doctor: - Worsening flank pain and/or fever - Chest pain, worsening shortness of breath, fatigue with usual exertion, or new rest/night time symptoms. - Weigh yourself daily and record; if you note an increase of more than 2-3 pounds in 2 days, or 5 pounds over a week, contact your health care provider. - If you become short of breath, cannot lie down to sleep, or have swelling in your legs/ankles or abdomen, contact your health care provider. - Call if you have reduced urination during the day or increased urination at night. - Call for signs of increased wound drainage, redness, swelling, or increased pain at the site of your cardiac cath. If you have non-emergent questions between now and the time of your follow up appointments: Call your primary care provider Activity level: - No heavy lifting (more than five pounds) for 48 hours; no more than 10 pounds for one week. - You may return to work in 1 week. Use common sense. Don't exhaust yourself. - No hunting, skiing, jogging, snow shoveling, snowmobiling, lawn mowing, swimming, golf or tennis until after your return appointment with your family doctor. - Do not ride motorcycles, tractors or horses until cleared by your doctor. Diet: - Heart healthy: low salt, low fat, low concentrated sweets. Remember to avoid added salt, canned foods, processed foods (ie hot dogs, sausage, cold meats), and foods naturally high in salt, such as potato chips or pizza. Exercise: - As tolerated. Follow up Appointments: Nuclear Medicine perfusion scan (no intervention) - Wednesday12/05/18 @ 9:45am arrival time, 12pm scan time @ [facility] Arteriography (with or without intervention) - 12/09/09 - 7:30am appointment Future Appointments Date Time Provider Department Center 12/05/2018 10:00 AM [facility] Nuc Med Leb Rad Clin 12/05/2018 12:00 PM [facility] NM ROOM 1 Nuc Med Leb Rad Clin 12/09/2018 7:30 AM [facility] IR ROOM 1 IR Leb Rad Clin 02/25/2021 4:00 PM Michael Arellano MD [facility] Appointment with PCP: Consuelo Flores APRN, December 05 @ 11am Your Inpatient Doctor(s) at [facility]: Manuel Martin MD - Attending physician Your Primary Care Provider: Sonal Sorensen, [place] [address] / [place] [address] For questions regarding issues relating to your hospitalization on the Hospital Medicine Service, please contact your inpatient physician through the [facility] [employer] [phone]. Issues after hours and on weekends will be handled by the Hospitalist staff on-call. documented in this encounter Medications at [...] as of this encounter Progress Notes * Hayley Vazquez MD - 12/01/2018 3:01 PM EDT HYPERTENSION/ NEPHROLOGY CONSULT PATIENT: Levi Bravo : 1960 REASON FOR CONSULTATION:Non oliguric MUSA,suspected L renal artetry stenosis with HTN to assist in management ID: Levi Bravo is a 58 years old male with no known past medical history in the past transferred from [facility] for recently found left renal artery stenosis associated with flank pain for whom we are consulted for assist in management of Non oliguric MUSA, possible DON and HTN. S:Still have low grade fevers but kidney function is improving but started to have leg swellings . PHYSICAL EXAM: Intake/Output Summary (Last 24 hours) at 12/01/2018 1539 Last data filed at 12/01/2018 1000 Gross per 24 hour Intake 5 ml Output 1000 ml Net -995 ml Last value Range last 24 hrs Temperature Temp: 37.7 ??C (99.9 ??F) Temp: [37.6 ??C (99.6 ??F)-38.5 ??C (101.3 ??F)] Heart Rate Heart Rate: 68 Heart Rate: [56-84] Blood Pressure BP: 129/78 BP: (117-129)/(68-78) Respiratory Rate Resp: 18 Resp: [18-22] SpO2 SpO2: 96 % SpO2: [96 %-99 %] Appearance - Alert, Comfortable. Skin - No exanthem. HEENT - Sclera white. Mucous membranes moist. Chest: Lungs clear to ausculatation w/o wheezes/ rhonchi/ crackles. Heart - S1 and S2 clear w/o murmur, gallop, or rub. JVP not elevated. Abd - Soft. + BS. No bruit. Non tender,mild CVA tenderness on left flank. Ext - Warm. No cyanosis. Trace dependent edema. Neuro - No focal deficits on exam STUDIES: Labs: CBC: Recent Labs 12/01/18 0600 11/30/18 0456 11/29/18 0456 WBC 8.2 10.9* 11.6* HGB 11.3* 11.4* 12.4* PLATELET 124* 104* 107* Chemistry: Recent Labs 12/01/18 0600 11/30/18 0456 11/29/18 0456 11/26/18 2350 NA 140 138 137 < > 142 K 3.8 3.7 3.8 < > 3.7 CL 104 104 102 < > 104 CO2 25 24 24 < > 24 BUN 14 14 12 < > 21* CREATININE 1.32 1.36 1.49 < > 1.80* GLUCOSE -- -- -- -- 114 < > = values in this interval not displayed. Recent Labs 12/01/18 0600 11/30/18 0456 11/29/18 0456 CALCIUM 7.9* 7.9* 7.8* MAGNESIUM 0.86 0.84 0.88 PHOS 2.3* 1.9* 2.0* LFT's: Recent Labs 11/26/18 2350 BILITOT 0.6 BILIDIR 0.2 ALBUMIN 3.9 ALKPHOS 52 ALT 22 AST 34 RENAL DUPLEX:11/27/18: Right: Patent main renal artery with no evidence of hemodynamically significant stenosis. Left: There is no identifiable flow by duplex in what is suspected to be the main renal artery; suspect occlusion. No arterial flow identified within the kidney. Patent renal vein. ECHO 11/28: 1. The left ventricular chamber size is normal. Left ventricular wall thickness is normal. There is normal global left ventricular systolic Function-63% with no WMA.. 2. The right ventricle is probably normal in size. Right ventricular global systolic function is normal. The estimated pulmonary artery systolic pressure is 43 mmHg. The estimated right atrial pressure is 15 mmHg. The inferior vena cava appears dilated. 3. There is no evidence of a patent forame 4. There is no hemodynamically significant valve disease. ? IMPRESSION/ RECOMMENDATIONS: Levi Bravo is a 58 y/o with no known PMH is now with newly found L renal artery stenosis and elevated BP concerning for renovascular HTN,Non oliguric MUSA possibly from possible ischemic nephropathy secondary to L renal artery occlusion/stenosis.Not on chronic NSAIDs to contribute for MUSA 1,Non oliguric MUSA: -Mostly from ischemic injury from renal artery occlusion/stenosis.Possibly contributed by recent bradycardia leading to hemodynamic MUSA.Urine lytes consistent with intrinsic renal injury(U sodium of 111,FeNa>3).Urine microscopy showed bland sediment-no casts/dysmorphic RBCs suggesting glomerularpathology.UA also showed no protein and very trace heme not suggesting any glomerular pathology.Having good urine out put and clinically eu volemic. Plan: - Creatinine is stabilizing ,maintaining good UOP,expecting hypertrophy of the contralateral kidneyand get to a new baseline. - Pain and fevers likely due to ongoing ischemia for the kidney . - Avoid nephrotoxins,NSAIDs,contrast .Strict I and Os ,daily weights,renal dosing for medications 2,Unilateral L renal artery stenosis/occlusion: - Renal duplex showed no identifiable flow by duplex in L main Renal artery but MRI showing part ofkidney is viable ,vascular planning angiography to evaluate further on possible stenosis vs thrombosis but risks vs benefits were debatable and patient and his are going to think about and planning in one week .Nuclear perfusion scan for functional study is pending . - So far work up negative ,awaiting hyper coagulable work up and not sure wether it is a stenosis or thrombosis as patients blood pressures are optimal . - will continue with amlodipine and hydralazine as needed to help in Bp management . Thanks for letting us participate in the care of this patient. Seen and Discussed w/ Dr.Remillard Taylor Hardy MD Nephrology Fellow #[id number] * Manuel Martin MD - 12/01/2018 3:01 PM EDT Hospital Medicine - Attending Day of Discharge Documentation Discharge diagnosis Active Hospital Problems Diagnosis ??? Elevated serum creatinine ??? Flank pain ??? Renal artery stenosis Resolved Hospital Problems No resolved problems to display. Secondary Issues Active Non-Hospital Problems Diagnosis ??? Nevus ??? Family history of malignant melanoma I have personally seen and examined the patient and they are ready for discharge. I spent >30 minutes (Day of Discharge Code 16158) involved in the final examination of the patient, discussion of the hospital stay, instructions for continuing care to all relevant caregivers, and preparation of discharge records, prescriptions and referral forms. Fever curve trending down; likely 2/2 infarcted kidney and no current concern for infectious process. Hemorrhoidal bleeding improved. Hgb stable. Transitioned from heparin gtt to lovenox and given teaching. BPs OK. Cr slowly improving. Plans ? Discharge to Home ? Follow-up scheduled with PCP, Nephrology, and Vascular Surgery. ? Please see the Discharge Summary for complete details of any medication changes and additional plans. MANUEL MARTIN MD * Jatin Anne MSW - 12/01/2018 2:08 PM EDT Met briefly with pt while present re: SW Consult to address new dx of Anxiety. Pt notes that during the course of his hospitalization there were times in which he felt scared but denies any ofthose feelings at this time. Pt notes being comfortable with dc plan. * Saskia Cohen RN - 12/01/2018 1:35 PM EDT Levi Bravo discharged to home by private care with , Katrina. All belongings sent with patient. PRICE removed, skin free from pressure ulcers. Discharge instructions, medications, and follow-up appointments reviewed, education provided on Lovenox administration and bleeding precautions, all ques tions answered. Patient instructed to call with concerns. * Ernie Garrett MD - 12/01/2018 11:33 AM EDT The patient was seen and examined with the nephrology fellow. Please see the nephrology fellow's note from today for details. I have reviewed the fellow's note including the exam, assessment and plan. My evaluation of the patient is as follows: Patient is seen and examined in his room. He is going to be discharged today. Does have a little bit of edema on exam but I would hold off on diuretics for now. We gave him our card for renal clinic and will arrange for him to follow-up in 3-4 weeks. He can call us in the meantime if he has questions. I asked him to monitor his weight blood pressure and pulse every day so that if he calls us we can have some data to work with. His creatinine is improved today. He will make a decision about whetherhe wishes to go ahead with an angiogram in the next several days. * Earnestine Broussard RN - 12/01/2018 11:01 AM EDT DC to home today. No home care needs. RN to perform Lovenox teaching prior to Discharge and team toconsider potential Lovenox cost prior to discharging (may require prior auth). Earnestine Broussard RN Pager [phone] * Hayley Vazquez MD - 11/30/2018 12:04 PM EDT HYPERTENSION/ NEPHROLOGY CONSULT PATIENT: Levi Bravo : 1960 REASON FOR CONSULTATION:Non oliguric MUSA,suspected L renal artetry stenosis with HTN to assist in management ID: Levi Bravo is a 58 years old male with no known past medical history in the past transferred from [facility] for recently found left renal artery stenosis associated with flank pain for whom we are consulted for assist in management of Non oliguric MUSA, possible DON and HTN. S:Still have ongoing pain and spikes of fever ,denied any nausea or vomiting or chest pain or sob .Have a long discussion with him and his about risks and benefits of angiography PHYSICAL EXAM: Intake/Output Summary (Last 24 hours) at 11/30/2018 1204 Last data filed at 11/30/2018 0800 Gross per 24 hour Intake 735 ml Output 1800 ml Net -1065 ml Last value Range last 24 hrs Temperature Temp: (!) 38.2 ??C (100.8 ??F) Temp: [37.2 ??C (99 ??F)-38.9 ??C (102 ??F)] Heart Rate Heart Rate: 60 Heart Rate: [56-66] Blood Pressure BP: (!) 141/92 BP: (121-150)/(77-92) Respiratory Rate Resp: 20 Resp: [18-22] SpO2 SpO2: 97 % SpO2: [94 %-100 %] Appearance - Alert, Comfortable. Skin - No exanthem. HEENT - Sclera white. Mucous membranes moist. Chest: Lungs clear to ausculatation w/o wheezes/ rhonchi/ crackles. Heart - S1 and S2 clear w/o murmur, gallop, or rub. JVP not elevated. Abd - Soft. + BS. No bruit. Non tender,mild CVA tenderness on left flank. Ext - Warm. No cyanosis. Trace dependent edema. Neuro - No focal deficits on exam STUDIES: Labs: CBC: Recent Labs 11/30/18 0456 11/29/18 0456 11/28/18 0508 WBC 10.9* 11.6* 11.4* HGB 11.4* 12.4* 12.1* PLATELET 104* 107* 108* Chemistry: Recent Labs 11/30/18 0456 11/29/18 0456 11/28/18 1137 11/28/18 0508 11/26/18 2350 NA 138 137 -- 137 < > 142 K 3.7 3.8 4.0 3.0* < > 3.7 CL 104 102 -- 99 < > 104 CO2 24 24 -- 26 < > 24 BUN 14 12 -- 10 < > 21* CREATININE 1.36 1.49 -- 1.46 < > 1.80* GLUCOSE -- -- -- -- -- 114 < > = values in this interval not displayed. Recent Labs 11/30/18 0456 11/29/18 0456 11/28/18 0508 CALCIUM 7.9* 7.8* 8.3* MAGNESIUM 0.84 0.88 0.74 PHOS 1.9* 2.0* 2.5 LFT's: Recent Labs 11/26/18 2350 BILITOT 0.6 BILIDIR 0.2 ALBUMIN 3.9 ALKPHOS 52 ALT 22 AST 34 RENAL DUPLEX:11/27/18: Right: Patent main renal artery with no evidence of hemodynamically significant stenosis. Left: There is no identifiable flow by duplex in what is suspected to be the main renal artery; suspect occlusion. No arterial flow identified within the kidney. Patent renal vein. ECHO 11/28: 1. The left ventricular chamber size is normal. Left ventricular wall thickness is normal. There is normal global left ventricular systolic Function-63% with no WMA.. 2. The right ventricle is probably normal in size. Right ventricular global systolic function is normal. The estimated pulmonary artery systolic pressure is 43 mmHg. The estimated right atrial pressure is 15 mmHg. The inferior vena cava appears dilated. 3. There is no evidence of a patent forame 4. There is no hemodynamically significant valve disease. ? IMPRESSION/ RECOMMENDATIONS: Levi Bravo is a 58 y/o with no known PMH is now with newly found L renal artery stenosis and elevated BP concerning for renovascular HTN,Non oliguric MUSA possibly from possible ischemic nephropathy secondary to L renal artery occlusion/stenosis.Not on chronic NSAIDs to contribute for MUSA 1,Non oliguric MUSA: -Mostly from ischemic injury from renal artery occlusion/stenosis.Possibly contributed by recent bradycardia leading to hemodynamic MUSA.Urine lytes consistent with intrinsic renal injury(U sodium of 111,FeNa>3).Urine microscopy showed bland sediment-no casts/dysmorphic RBCs suggesting glomerularpathology.UA also showed no protein and very trace heme not suggesting any glomerular pathology.Having good urine out put and clinically eu volemic. Plan: - Creatinine is stabilizing ,maintaining good UOP,expecting hypertrophy of the contralateral kidneyand get to a new baseline. - Pain and fevers likely due to ongoing ischemia for the kidney . - Avoid nephrotoxins,NSAIDs,contrast .Strict I and Os ,daily weights,renal dosing for medications 2,Unilateral L renal artery stenosis/occlusion: - Renal duplex showed no identifiable flow by duplex in L main Renal artery but MRI showing part ofkidney is viable ,vascular planning angiography to evaluate further on possible stenosis vs thrombosis but risks vs benefits were debatable and patient and his are going to think about .We explained in detail about risks and benefits. - So far work up negative ,awaiting hyper coagulable work up and not sure wether it is a stenosis or thrombosis as patients blood pressures are optimal . - will continue with amlodipine and hydralazine as needed to help in Bp management . Thanks for letting us participate in the care of this patient. Seen and Discussed w/ Dr.Remillard Taylor Hardy MD Nephrology Fellow #[id number] * Ernie Garrett MD - 11/30/2018 11:38 AM EDT The patient was seen and examined with the nephrology fellow. Please see the nephrology fellow's note from today for details. I have reviewed the fellow's note including the exam, assessment and plan. My evaluation of the patient is as follows: Patient is seen and examined in his room. His creatinine is improved today. I had a long discussionwith the patient and his about the risks and benefits of considering intervening on the stenosis. From the renal point of view he would do fine with one kidney. I think we do not know the exact etiology of his current renal artery stenosis. It may be that he has some type of fibromuscular dysplasia. I doubt this is atherosclerotic in nature. There is not a lot of evidence that this is an embolism. I did review the MRIs with the patient's and showed them the perfusion to the lower part of the left kidney. If we do not intervene the only consequence in the future which I think would be of significance would be hypertension if the remaining parenchyma is deprived the blood flow. We could treat this medically for the most part. I will be sure to discuss this in detail with Dr. Sullivan. My sense is that the patient is are leaning towards nonintervention at this point. * Michael Duggan RN - 11/30/2018 8:22 AM EDT ANGIO NURSING DATABASE Name: LEVI BRAVO Date of : 1960 AGE: 58 y.o. Address: [address] [place] [id number] (home) Mobile: Telephone Information: Referring Provider: Self REASON FOR VISIT: Order Questions Answers Laterality Left Reason for exam and clinical history: L RA occlusion Exam/Procedure requested: Renal arteriogram with possible intervention Is the patient on anticoagulant / anitplatelet therapy ? Heparin Allergies Allergen Reactions ??? Pseudafen [Pseudoephedrine Hcl] Pertinent PMH: Patient Active Problem List Diagnosis Code ??? Nevus D22.9 ??? Family history of malignant melanoma Z80.8 ??? Flank pain R10.9 ??? Elevated serum creatinine R79.89 ??? Renal artery stenosis I70.1 Pertinent PSH: No past surgical history on file. Date/Procedure Meds given/comments No Prior IR procedures Laboratory Results: Lab Results Component Value Date INR 1.1 11/26/2018 Lab Results Component Value Date CREATININE 1.36 11/30/2018 Lab Results Component Value Date K 3.7 11/30/2018 Lab Results Component Value Date PLATELET 104 (L) 11/30/2018 Medications: Prior to Admission medications Medication Sig Start Date End Date Taking? Authorizing Provider azithromycin (ZITHROMAX) 250 mg Tablet take 1 tablet by mouth daily (START ON DAY 2 OF THERAPY 11/25/18 PROVIDER, HISTORICAL predniSONE (DELTASONE) 20 mg Tablet take 2 tablets (40MG) by mouth daily 11/25/18 PROVIDER, HISTORICAL ketoconazole (NIZORAL) 2 % cream Apply topically daily. PROVIDER, HISTORICAL ibuprofen (ADVIL;MOTRIN) 400 mg tablet Take 400 mg by mouth every 6 hours as needed. PROVIDER, HISTORICAL * Manuel Martin MD - 11/30/2018 6:38 AM EDT Medicine Progress Note Patient Name: LEVI BRAVO Date of : 1960 Age: 58 y.o. Hospital Admit Date: 11/26/2018 Inpatient Attending: Dr. Martin PCP: Sonal Sorensen APRN Presenting Diagnosis/Chief Complaint: Left flank pain ID: Levi Bravo is a 58 y.o. male with no significant medical history who presents with a chief complaint of left flank pain found to have left-sided renal artery stenosis/occlusion 24 Hour Events: - C/w amlodipine 5mg qd and hydralazine 10mg q4h PRn SBP >180 MRI abdomen - critical left renal artery stenosis Vascular Surgery - planning for surgical intervention. Will discuss anticoagulation after that. TTE - unrevealing 2nd read of CT Chest today - pending - NAEO - febrile this AM - CXR, blood cultures redrawn - patient says pain has been controlled with tylenol with dilaudid available - had questions about possible surgical intervention planned - Endorses 3 loose BMs - noted bright red blood on gown from rectum - likely hemorrhoid - red on wipe. PHYSICAL EXAM: Last value Range last 24 hrs Temperature Temp: (!) 38.2 ??C (100.8 ??F) Temp: [37.2 ??C (99 ??F)-38.9 ??C (102 ??F)] Heart Rate Heart Rate: 60 Heart Rate: [56-66] Blood Pressure BP: (!) 141/92 BP: (121-150)/(77-92) Respiratory Rate Resp: 20 Resp: [18-22] SpO2 SpO2: 97 % SpO2: [94 %-100 %] Intake/Output Summary (Last 24 hours) at 11/30/2018 1248 Last data filed at 11/30/2018 0800 Gross per 24 hour Intake 735 ml Output 1800 ml Net -1065 ml Gen: Lying supine in bed, appears comfortable, NAD, pleasant and conversant ENT: EOMI, PERRL, MMM CV: regular rate and rhythm, no murmurs/rubs/gallops appreciated Pulm: Mild crackling to left lung base, other yanes clear to auscultation, unlabored without wheeze or cough on deep inspiration/expiration GI: Soft, ND, mild tenderness to palpation of LUQ, moderate tenderness to left flank to palpation and percussion - mild improvement from prior exam Ext: 1+ pitting edema bilaterally in lower extremities Skin: no rashes or lesion noted Psych: Mood anxious, congruent affect LABS: Recent Labs 11/30/18 04511/29/18 0456 11/28/18 0508 WBC 10.9* 11.6* 11.4* HGB 11.4* 12.4* 12.1* HCT 33.0* 36.2* 35.1* PLATELET 104* 107* 108* Recent Labs 11/26/18 2350 INR 1.1 Recent Labs 11/30/18 0456 11/29/18 0456 11/28/18 1137 11/28/18 0508 NA 138 137 -- 137 K 3.7 3.8 4.0 3.0* CL 104 102 -- 99 CO2 24 24 -- 26 BUN 14 12 -- 10 CREATININE 1.36 1.49 -- 1.46 Recent Labs 11/26/18 2350 AST 34 ALT 22 ALKPHOS 52 BILITOT 0.6 BILIDIR 0.2 Recent Labs 11/30/18 0456 11/29/18 0456 11/28/18 0508 CALCIUM 7.9* 7.8* 8.3* MAGNESIUM 0.84 0.88 0.74 PHOS 1.9* 2.0* 2.5 Lab Results Component Value Date CHLPL 139 11/27/2018 HDL 41 11/27/2018 CHOLHDL 3.4 11/27/2018 LDLDIRECT 99 11/27/2018 CK 333 -> 239 Troponin: <0.01 x3 UA showed some blood but no RBCs Urine Na 111, Cr 43 Hepatits A Ab - positive Hep B panel and C Ab: negative Uric Acid: 3.1 LDH: ESR: 24 CRP: pending -DELON: negative -c-ANCA, p-ANCA - pending -Complement C3 (109), C4 (35) Microbiology Results (Last 30 days) Procedure Component Value Units Date/Time Blood culture [[id number]] Collected: 11/28/18 2304 Lab Status: Preliminary result Specimen: Blood Updated: 11/30/18 0702 Blood Culture No growth at 1 day. Blood culture [[id number]] Collected: 11/28/18 0700 Lab Status: Preliminary result Specimen: Blood Updated: 11/29/18 1502 Blood Culture No growth at 1 day. Blood culture [[id number]] Collected: 11/28/18 0656 Lab Status: Preliminary result Specimen: Blood Updated: 11/29/18 1502 Blood Culture No growth at 1 day. Imaging/Diagnostics: CT Chest 11/30: IMPRESSION Subpleural parenchymal opacity in the right lower lobe on axial images is elongate and branching on sagittal reconstruction, likely an area of parenchymal scarring or organizing-type inflammatory/infectious change. Noncontrast chest CT follow-up in 6 weeks to 3 months is suggested to assess resolution/improvement versus persistence. CXR 11/28 IMPRESSION Small left pleural effusion with associated left lower lobe opacities favored to represent compressive atelectasis. MRI Angiogram Abdomen wwo Contrast 11/28 IMPRESSION 1. Critical stenosis at the origin of the left renal artery, with segmental areas of decreased perfusion/nonenhancement predominantly involving the mid to upper pole as well as wedge-shaped segmental focus in the lower pole representing renal infarcts. 2. Small to moderate ascites. TTE with Bubble Study 11/28 SUMMARY: 1. The left ventricular chamber size is normal. Left ventricular wall thickness is normal. There is normal global left ventricular systolic function. The quantitative left ventricular ejection fraction by biplane Brown's method is 63%. There are no left ventricular segmental wall motion abnormalities. Doppler assessment is consistent with normal left sided filling pressure. 2. The right ventricle is probably normal in size. Right ventricular global systolic function is normal. The estimated pulmonary artery systolic pressure is 43 mmHg. The estimated right atrial pressure is 15 mmHg. The inferior vena cava appears dilated. 3. There is no evidence of a patent foramen ovale by either color Doppler or agitated saline injection. There is normal bi-atrial size. 4. There is no hemodynamically significant valve disease. 5. See report above for remainder of findings. Renal Duplex 11/27 Interpretation: Right: Patent main renal artery with no evidence of hemodynamically significant stenosis. ?? Left: There is no identifiable flow by duplex in what is suspected to be the main renal artery; suspect occlusion. No arterial flow identified within the kidney. Patent renal vein. ?? Comparison: ??No previous study in our vascular lab database for comparison. 2nd read CT ab/pelvis 11/27: 1. Delayed left nephrogram, secondary to renal artery stenosis, given focal severe narrowing at the origin of the left renal artery on recent comparison study. 2. Small to moderate volume low density ascites throughout the abdomen and pelvis. ASSESSMENT and PLAN: Levi Bravo is a 58 y.o. male with no significant PMH admitted with left flank pain, renal dysfunction, and HTN. Initially our differential was broad for the renal disease and included primarily intrinsic renal processes. A FENA was 3.3%. There were findings on the referring hospital CT abdomen for unilateral renal disease. A second read was requested here and identified unilateral left DON. The left flank pain is concerning for ischemic nephropathy given the previous findings and his fever today could be Manifestation of this as well. After discussion with Nephrology and Vascular Surgery on 11/27, obtained duplex study of the left kidney revealing no flow to the left kidney. Started him on heparin gtt and continued medical management with amlodipine and RN hydralazine for blood pressure. Obtained MRI Angiogram Abdomen wwo contrast on 11/28 per Nephrology, showing perfusion to lower pole of left kidney but severe stenosis of leftrenal artery. Discussed with Nephrology and Vascular Surgery. Vascular Surgery has weighed option of angioplasty and is considering taking him to the OR in the next day. Patient would like to have further discussion on the risks and benefits of such a procedure, requesting conversation with team tohash out details. This morning he asked to defer angiography pending this discussion. Prior to presentation, patient had received brief dosing of azithromycin for a possible bronchiolitis v PNA based off SOB and findings on CT chest. Given his clinical findings and presentation here, we believe it is unlikely that he has a pulmonary infection. 2nd read of CT chest suggests inflammatory v infectious process with a suggesting of follow up imaging in 6 weeks to 3 months. It is unclear why he is exhibiting unilateral DON and absent blood flow to left kidney. Will work up possible embolic disease or vasculitis. TTE with bubble study was unrevealing of an underlying etiology. DELON negative but ANCA studies still pending. # Renal failure, HTN 2/2 unilateral DON without flow to left kidney seen on duplex U/S # Fever of unknown origin likely 2/2 DON v. infection - amlodipine 5mg po qd - hydralazine IV prn - heparin gtt - Renal Artery Doppler - no flow through left renal artery - blood cx x2 - NGTD (redrew overnight with persistent fevers) - UA - unrevealing - w/u etiology - DELON negative - c-ANCA, p-ANCA - pending - C3 (109), C4 (35) - Hepatitis A Ab: positive, Hep B panel and C: negative, - TTE with bubble study - unrevealing - MRI abdomen/pelvis - critical stenosis of left renal artery - possible consult to Vascular IR - will contact today about utility of stenting - consult nephrology - consult vascular surgery - dilaudid 2mg q4 hr prn #Shortness of Breath likely 2/2 Atalectasis v PNA v malignancy - s/p 2 days of azithromycin prior to admission - exam/presentation suggests against active pulmonary infection - 2nd read of CT Chest (11/24) - possible inflammatory/infectious findings - suggest follow up CT in6 weeks - 3 months # Thrombocytopenia - peripheral smear - no signs of schistocytes #Constipation, Bloating - resolved #Hemorrhoid - d/c pericolace and miralax - simethicone PRN - Consider colonoscopy as outpatient - especially for hypercoaguable source #Housekeeping: - DVT PPx: Heparin gtt - GI PPx: none - Diet: NPO diet (Give Meds) - Level of care: med/surg - Vitals: q4 Discussed Advanced Directives and Code Status. The patient wishes to be full code. Aydin Hidalgo MD PGY1 Internal Medicine Medicine Green Team [id number] M2??Hospital Medicine Service Attending Documentation ?? I certify that I am a D-H credentialed attending provider with admitting privileges and that the patient meets or has met medical necessity to require an inpatient IPI level of care meeting a minimumof two midnights or is on the [facility] inpatient only procedure list (status C) due to??left flank pain with kidney infarction concerning for arterial thrombus and started on heparin gtt. ??Anticipated LOS >??48 hours. ?? Please see ??Rocky's??note for details of the patient history of presentation and data. ??I have discussed, reviewed and agree with the documented ??History, Physical findings, Assessment and Plan of care. ??I have examined the patient myself and personally reviewed all studies. ??Discussed plan with patient and he is in??agreement. ??Additions to the history, physical, assessment and plan include the following: ?? Appreciate Nephrology and Vascular Surgery input. Cont on heparin gtt for concern L renal artery stenosis with thrombotic component. MRI with some flow; ongoing discussion if possible role for stenting or revascularization. Tentative plan for angiogram and possible stent next Wednesday; will also obtain NM renal perfusion scan to assess current degree of viable renal tissue. Plan for AC for minimum 6 months; will need hypercoag w/u at that time to then determine if indication for longer process. BP control much improved. Hemorrhoidal bleeding on AC; consulting CRC for possible sclerosis. Re-read Ct chest likely prior scar RLL vs other; will need repeat CT in 2-3 months. Fevers likely 2/2 infarcting kidney. Blood cultures NGTD. HD stable off abx. Vasculitis panel pending, although DELON and complement neg. Remainder as above.? MANUEL MARTIN MD * Hayley Vazquez MD - 11/29/2018 4:48 PM EDT HYPERTENSION/ NEPHROLOGY CONSULT PATIENT: Levi Bravo : 1960 REASON FOR CONSULTATION:Non oliguric MUSA,suspected L renal artetry stenosis with HTN to assist in management ID: Levi Bravo is a 58 years old male with no known past medical history in the past transferred from [facility] for recently found left renal artery stenosis associated with flank pain for whom we are consulted for assist in management of Non oliguric MUSA, possible DON and HTN. S: still have flank pain and low grade fevers this morning,have a long discussion with him and the team about MRI report and benefits vs risks of any sort of procedure. PHYSICAL EXAM: Intake/Output Summary (Last 24 hours) at 11/29/2018 1648 Last data filed at 11/29/2018 0734 Gross per 24 hour Intake 1868 ml Output 600 ml Net 1268 ml Last value Range last 24 hrs Temperature Temp: 37.2 ??C (99 ??F) Temp: [37.2 ??C (99 ??F)-39.5 ??C (103.1 ??F)] Heart Rate Heart Rate: 66 Heart Rate: [58-66] Blood Pressure BP: 123/79 BP: (121-157)/(77-90) Respiratory Rate Resp: 20 Resp: [16-20] SpO2 SpO2: 94 % SpO2: [93 %-99 %] Appearance - Alert, Comfortable. Skin - No exanthem. HEENT - Sclera white. Mucous membranes moist. Chest: Lungs clear to ausculatation w/o wheezes/ rhonchi/ crackles. Heart - S1 and S2 clear w/o murmur, gallop, or rub. JVP not elevated. Abd - Soft. + BS. No bruit. Non tender,mild CVA tenderness on left flank. Ext - Warm. No cyanosis. Trace dependent edema. Neuro - No focal deficits on exam STUDIES: Labs: CBC: Recent Labs 11/29/18 0456 11/28/18 0508 11/27/18 0420 WBC 11.6* 11.4* 7.6 HGB 12.4* 12.1* 12.8* PLATELET 107* 108* 109* Chemistry: Recent Labs 11/29/18 0456 11/28/18 1137 11/28/18 0508 11/27/18 1140 11/26/18 2350 NA 137 -- 137 139 142 K 3.8 4.0 3.0* 3.4* 3.7 CL 102 -- 99 103 104 CO2 24 -- 22 24 BUN 12 -- 10 14 21* CREATININE 1.49 -- 1.46 1.51* 1.80* GLUCOSE -- -- -- -- 114 Recent Labs 11/29/18 0456 11/28/18 0508 11/27/18 1140 CALCIUM 7.8* 8.3* 8.5 MAGNESIUM 0.88 0.74 -- PHOS 2.0* 2.5 -- LFT's: Recent Labs 11/26/18 2350 BILITOT 0.6 BILIDIR 0.2 ALBUMIN 3.9 ALKPHOS 52 ALT 22 AST 34 RENAL DUPLEX:11/27/18: Right: Patent main renal artery with no evidence of hemodynamically significant stenosis. Left: There is no identifiable flow by duplex in what is suspected to be the main renal artery; suspect occlusion. No arterial flow identified within the kidney. Patent renal vein. ECHO 11/28: 1. The left ventricular chamber size is normal. Left ventricular wall thickness is normal. There is normal global left ventricular systolic Function-63% with no WMA.. 2. The right ventricle is probably normal in size. Right ventricular global systolic function is normal. The estimated pulmonary artery systolic pressure is 43 mmHg. The estimated right atrial pressure is 15 mmHg. The inferior vena cava appears dilated. 3. There is no evidence of a patent forame 4. There is no hemodynamically significant valve disease. ? IMPRESSION/ RECOMMENDATIONS: Levi Bravo is a 58 y/o with no known PMH is now with newly found L renal artery stenosis and elevated BP concerning for renovascular HTN,Non oliguric MUSA possibly from possible ischemic nephropathy secondary to L renal artery occlusion/stenosis.Not on chronic NSAIDs to contribute for MUSA 1,Non oliguric MUSA: -Mostly from ischemic injury from renal artery occlusion/stenosis.Possibly contributed by recent bradycardia leading to hemodynamic MUSA.Urine lytes consistent with intrinsic renal injury(U sodium of 111,FeNa>3).Urine microscopy showed bland sediment-no casts/dysmorphic RBCs suggesting glomerularpathology.UA also showed no protein and very trace heme not suggesting any glomerular pathology.Having good urine out put and clinically eu volemic. Plan: - Creatinine is stabilizing vs mild increase ,maintaining good UOP,expecting hypertrophy of the contralateral kidney and get to a new baseline. - Developing pain and fevers likely due to ongoing ischemia for the kidney - Echo did not show any thrombus or PFO ,need tele for evaluation for Afib for embolic source.So far infectious work up is negative,DELON ,complement levels are normal. - Avoid nephrotoxins,NSAIDs,contrast .Strict I and Os ,daily weights,renal dosing for medications 2,Unilateral L renal artery stenosis/occlusion: - Renal duplex showed no identifiable flow by duplex in L main Renal artery currently on heparin and will request vascular to decide on length of AC. - MRI showing part of kidney is viable ,discussed with vascular who mentioned there is no benefit to proceed with the procedure on the occluded vessel and risks will be high which is explained to patient in detail and vascular is waiting for his decision. - Will follow up with hyper coaguable testing and vasculitis testing.May need Holter to evaluate for paroxysmal AFib . - will continue with amlodipine and hydralazine as needed to help in Bp management ,will consider adding ACEI as out patient later. Thanks for letting us participate in the care of this patient. Seen and Discussed w/ Dr.Remillard Taylor Hardy MD Nephrology Fellow #[id number] * Ernie Garrett MD - 11/29/2018 12:19 PM EDT The patient was seen and examined with the nephrology fellow. Please see the nephrology fellow's note from today for details. I have reviewed the fellow's note including the exam, assessment and plan. My evaluation of the patient is as follows: Patient had an MRI study done yesterday which demonstrates a critical stenosis of the left renal artery. Vascular has reviewed the case in detail and feels that there is no intervention possible at this point. There does appear to be some perfusion to the lower pole perhaps consistent with an accessory renal artery. We will asked them to weigh in on how long we need to continue anticoagulation. The renal function appears to be stabilizing. We can expect some hypertrophy from the contralateral kidney over time. I had a long discussion with the patient about the implications of the ischemic left kidney. This should atrophy with time. He may have a couple weeks of low-grade fevers and mild abdominal pain and bloating as a consequence of the inflammation related to the necrosis. Otherwise agree with the plan as outlined today. * Manuel Martin MD - 11/29/2018 6:40 AM EDT Medicine Progress Note Patient Name: LEVI BRAVO Date of : 1960 Age: 58 y.o. Hospital Admit Date: 11/26/2018 Inpatient Attending: Dr. Martin PCP: Sonal Sorensen APRN Presenting Diagnosis/Chief Complaint: Left flank pain ID: Levi Bravo is a 58 y.o. male with no significant medical history who presents with a chief complaint of left flank pain found to have left-sided renal artery stenosis/occlusion 24 Hour Events: - continues on amlodipine 5mg qd and hydralazine 10mg q4h PRn SBP >180 - Duplex renal U/S - no flow to left kidney - no surgical intervention indicated - continues on on heparin gtt - TTE - unrevealing - MRI prelim read shows perfusion to lower pole of left kidney - discussed with Nephrology and Vascular Surgery - Vascular Surgery to discuss him at morning conference today - NAEO - febrile this AM - CXR, blood cultures redrawn - patient says pain has been controlled with tylenol with dilaudid available - Anxious about his condition - BM overnight without pain at known hemorrhoid PHYSICAL EXAM: Last value Range last 24 hrs Temperature Temp: (!) 38.4 ??C (101.1 ??F) Temp: [37.5 ??C (99.5 ??F)-39.5 ??C (103.1 ??F)] Heart Rate Heart Rate: 64 Heart Rate: [58-68] Blood Pressure BP: 141/78 BP: (121-184)/(77-94) Respiratory Rate Resp: 18 Resp: [16-18] SpO2 SpO2: 93 % SpO2: [93 %-99 %] Intake/Output Summary (Last 24 hours) at 11/29/2018 1159 Last data filed at 11/29/2018 0734 Gross per 24 hour Intake 1989 ml Output 800 ml Net 1189 ml Gen: Lying supine in bed, appears comfortable, NAD, pleasant and conversant ENT: EOMI, PERRL, MMM CV: regular rate and rhythm, no murmurs/rubs/gallops appreciated Pulm: Mild crackling to left lung base, other yanes clear to auscultation, unlabored without wheeze or cough on deep inspiration/expiration GI: Soft, ND, mild tenderness to palpation of LUQ, moderate tenderness to left flank to palpation and percussion Ext: 1+ pitting edema bilaterally in lower extremities Skin: no rashes or lesion noted Psych: Mood anxious, congruent affect LABS: Recent Labs 11/29/18 0456 11/28/18 0508 11/27/18 0420 WBC 11.6* 11.4* 7.6 HGB 12.4* 12.1* 12.8* HCT 36.2* 35.1* 37.6* PLATELET 107* 108* 109* Recent Labs 11/26/18 2350 INR 1.1 Recent Labs 11/29/18 0456 11/28/18 1137 11/28/18 0508 11/27/18 1140 NA 137 -- 137 139 K 3.8 4.0 3.0* 3.4* CL 102 -- 99 103 CO2 24 -- 26 22 BUN 12 -- 10 14 CREATININE 1.49 -- 1.46 1.51* Recent Labs 11/26/18 2350 AST 34 ALT 22 ALKPHOS 52 BILITOT 0.6 BILIDIR 0.2 Recent Labs 11/29/18 0456 11/28/18 0508 11/27/18 1140 CALCIUM 7.8* 8.3* 8.5 MAGNESIUM 0.88 0.74 -- PHOS 2.0* 2.5 -- Lab Results Component Value Date CHLPL 139 11/27/2018 HDL 41 11/27/2018 CHOLHDL 3.4 11/27/2018 LDLDIRECT 99 11/27/2018 CK 333 -> 239 Troponin: <0.01 x3 UA showed some blood but no RBCs Urine Na 111, Cr 43 Hepatits A Ab - positive Hep B panel and C Ab: negative Uric Acid: 3.1 LDH: ESR: 24 CRP: pending -DELON, c-ANCA, p-ANCA - pending -Complement C3 (109), C4 (35) Microbiology Results (Last 30 days) No results found for the last 720 hours. Imaging/Diagnostics: CXR 11/28 IMPRESSION Small left pleural effusion with associated left lower lobe opacities favored to represent compressive atelectasis. MRI Angiogram Abdomen wwo Contrast 11/28 IMPRESSION 1. Critical stenosis at the origin of the left renal artery, with segmental areas of decreased perfusion/nonenhancement predominantly involving the mid to upper pole as well as wedge-shaped segmental focus in the lower pole representing renal infarcts. 2. Small to moderate ascites. TTE with Bubble Study 11/28 SUMMARY: 1. The left ventricular chamber size is normal. Left ventricular wall thickness is normal. There is normal global left ventricular systolic function. The quantitative left ventricular ejection fraction by biplane Brown's method is 63%. There are no left ventricular segmental wall motion abnormalities. Doppler assessment is consistent with normal left sided filling pressure. 2. The right ventricle is probably normal in size. Right ventricular global systolic function is normal. The estimated pulmonary artery systolic pressure is 43 mmHg. The estimated right atrial pressure is 15 mmHg. The inferior vena cava appears dilated. 3. There is no evidence of a patent foramen ovale by either color Doppler or agitated saline injection. There is normal bi-atrial size. 4. There is no hemodynamically significant valve disease. 5. See report above for remainder of findings. Renal Duplex 11/27 Interpretation: Right: Patent main renal artery with no evidence of hemodynamically significant stenosis. ?? Left: There is no identifiable flow by duplex in what is suspected to be the main renal artery; suspect occlusion. No arterial flow identified within the kidney. Patent renal vein. ?? Comparison: ??No previous study in our vascular lab database for comparison. 2nd read CT ab/pelvis 11/27: 1. Delayed left nephrogram, secondary to renal artery stenosis, given focal severe narrowing at the origin of the left renal artery on recent comparison study. 2. Small to moderate volume low density ascites throughout the abdomen and pelvis. ASSESSMENT and PLAN: Levi Bravo is a 58 y.o. male with no significant PMH admitted with left flank pain, renal dysfunction, and HTN. Initially our differential was broad for the renal disease and included primarily intrinsic renal processes. A FENA was 3.3%. There were findings on the referring hospital CT abdomen for unilateral renal disease. A second read was requested here and identified unilateral left DON. The left flank pain is concerning for ischemic nephropathy given the previous findings and his fever today could be Manifestation of this as well. After discussion with Nephrology and Vascular Surgery on 11/27, obtained duplex study of the left kidney revealing no flow to the left kidney. Started him on heparin gtt and continued medical management with amlodipine and RN hydralazine for blood pressure. Obtained MRI Angiogram Abdomen wwo contrast on 11/28 per Nephrology, showing perfusion to lower pole of left kidney but severe stenosis of leftrenal artery. Discussed with Nephrology and Vascular Surgery who indicated no need for emergent surgery but will discuss at conference this AM. Ultimately decided that given timeline, he is not a candidate for surgical intervention at this time. Will discuss further with Nephrology today and consider utility of involving IR for possible stenting. Prior to presentation, patient had received brief dosing of azithromycin for a possible bronchiolitis v PNA based off SOB and findings on CT chest. Given his clinical findings and presentation here, we believe it is unlikely that he has a pulmonary infection. Will reach out to Radiology for 2nd read of pulmonary component of CT as there could be a component of imaging that might suggest vasculitis v malignancy v infection to help inform further management. It is unclear why he is exhibiting unilateral DON and absent blood flow to left kidney. Will work up possible embolic disease or vasculitis. TTE with bubble study was unrevealing of an underlying etiology. # Renal failure, HTN 2/2 unilateral DON without flow to left kidney seen on duplex U/S # Fever of unknown origin likely 2/2 DON v. infection - amlodipine 5mg po qd - hydralazine IV prn - heparin gtt - Renal Artery Doppler - no flow through left renal artery - blood cx x2 - NGTD (redrew overnight with persistent fevers) - UA - unrevealing - w/u etiology - DELON, c-ANCA, p-ANCA - pending - C3 (109), C4 (35) - Hepatitis A Ab: positive, Hep B panel and C: negative, - TTE with bubble study - unrevealing - MRI abdomen/pelvis - critical stenosis of left renal artery - possible consult to Vascular IR - will contact today about utility of stenting - consult nephrology - consult vascular surgery - dilaudid 2mg q4 hr prn - 2nd read of CT Chest (11/24) today # Thrombocytopenia - peripheral smear - no signs of schistocytes #Housekeeping: - DVT PPx: Heparin gtt - GI PPx: none - Diet: NPO diet (Give Meds) - Level of care: med/surg - Vitals: q4 Discussed Advanced Directives and Code Status. The patient wishes to be full code. Aydin Hidalgo MD PGY1 Internal Medicine Medicine Green Team [id number] M2??Hospital Medicine Service Attending Documentation ?? I certify that I am a D-H credentialed attending provider with admitting privileges and that the patient meets or has met medical necessity to require an inpatient IPI level of care meeting a minimumof two midnights or is on the [facility] inpatient only procedure list (status C) due to??left flank pain with kidney infarction concerning for arterial thrombus and started on heparin gtt. ??Anticipated LOS >??48 hours. ?? Please see Dr.??Rocky's note for details of the patient history of presentation and data. ??I havediscussed, reviewed and agree with the documented ??History, Physical findings, Assessment and Planof care. ??I have examined the patient myself and personally reviewed all studies. ??Discussed planwith patient and he is in??agreement. ??Additions to the history, physical, assessment and plan incl ude the following: ?? Appreciate Nephrology and Vascular Surgery input. Cont on heparin gtt for concern L renal artery stenosis with thrombotic component. MRI with some flow; ongoing discussion if possible role for stenting or revascularization. Improved BP control. Improved pain. Ultimately; will likely need min 3 month AC but not transition to coumadin pending possible above interventions. ?? No FMH clots, no prior clot. Can consider APLS, FactorV, prothrombin but unlikely given lack of prior clot and FMH. Cannot do full hypercoag eval until off therapeutic AC. TTE with normal LVEF. PASP 43. LA normal size. TTE, no clot, no PFO. ?? Fevers yesterday likely 2/2 infarcting kidney. Blood cultures NGTD. HD stable off abx. Vasculitis panel pending. Note: did complete 2 days azithro prior to admission for possible resp infection; CXR some RLL likely atelectasis, small effusion on left. Re-read of OSH chest CT w/ nodule in RLL. No other LAD and low uric acid; lymphoma unlikely. LDH likely 2/2 kidney infarction. High CRP noted. If spiking fevers and hemodynamically unstable would repeat blood cultures and start empiric abx (e.g. CTX +/- renal dose vanc) ?? Remainder as above.? MANUEL MARTIN MD * Mago Mena MD - 11/28/2018 9:27 PM EDT Vascular update note 58M with left flank pain x 6 days. Admitted yesterday to medicine service for MUSA and left renal artery occlusion. Duplex revealed no flow in left main renal artery. Pt was started on heparin drip aslikely source of renal occlusion was acute embolus vs in situ thrombosis (caused by arrhythmia or hy percoagulability). Etiology of thrombus remains unclear at this point. Pt has been in sinus rhythm and thus afib seems a less likely culprit, and pt has no significant calcific lesion at renal arteryorigin on CT (thus in situ thrombosis of existing lesion unlikely). Endocarditis remains within thedifferential; that said fevers are common after renal infarct and do not necessarily make endocarditis more likely. No atrial thrombus noted on TTE, EF wnl, elevated PA pressures. I was called by medicine resident Jonathan Young as pt underwent MRI tonight and prelim read is suggestive of delayed filling of the lower pole of the kidney. In the interim pt continues to make good urine, Cr is downtrending from 1.8 on admission to 1.46 currently; pt remains on heparin drip. I noted that often there is an accessory renal or small collaterals than can continue to supply a segment of the kidney. At this point main left renal has most likely been occluded for 6.5 days when sx began. Thus considering the time period, there is minimal chance that any attempts at lysis or percutaneous mechanicotherapy would be fruitful. Mainstay of treatment is anticoagulation and management of hypertension. We will discuss this case as it is somewhat complex at 7:15 am conference with the full group of vascular surgery attendings, and follow up again with the medicine team shortly thereafter. [facility] will cont to follow closely. Please have pt NPO at midnight in the event intervention is attempted. Mago Mena MD/HOSSEIN, PGY-5 Section of Vascular Surgery, Pager [phone] * Ernie Garrett MD - 11/28/2018 11:47 AM EDT The patient was seen and examined with the nephrology fellow. Please see the nephrology fellow's note from today for details. I have reviewed the fellow's note including the exam, assessment and plan. My evaluation of the patient is as follows: Patient is seen and examined in his room. He is having some bloating and abdominal pain. He does have flank pain and tenderness to palpation of the left costovertebral angle. The patient had no flow on his duplex however he did have contrast in the kidney. I think it would be reasonable to do an MRI with a sequence to look at renal perfusion. If the kidney has any collaterals or perfusion and we might consider further intervention. Otherwise the creatinine is slightly improved today. The etiology of the renal artery narrowing/occlusion is still unclear. He does not appear to have much atherosclerosis. I think vasculitis and/or embolism is still possibility. We will continue to work this up in the meantime. * Manuel Martin MD - 11/28/2018 6:30 AM EDT Medicine Progress Note Patient Name: LEVI BRAVO Date of : 1960 Age: 58 y.o. Hospital Admit Date: 11/26/2018 Inpatient Attending: Dr. Martin PCP: Sonal Sorensen APRN Presenting Diagnosis/Chief Complaint: Left flank pain ID: Levi Bravo is a 58 y.o. male with no significant medical history who presents with a chief complaint of left flank pain found to have left-sided renal artery stenosis. 24 Hour Events: - New admit - Unilateral renal Artery Stenosis - Vascular Surgery and Nephrology Consulted - Started on amlodipine 5mg qd and hydralazine 10mg q4h PRn SBP >180 - Duplex renal U/S - no flow to left kidney - no surgical intervention indicated - Started on heparin gtt - NAEO - febrile this AM - patient says pain has been controlled with tylenol with dilaudid available - Anxious about his condition - Ordering DELON, c-ANCA, p-ANCA, complement levels, and hepatitis panel PHYSICAL EXAM: Last value Range last 24 hrs Temperature Temp: (!) 38.7 ??C (101.7 ??F)(MD notified of temp) Temp: [37.3 ??C (99.1 ??F)-38.7 ??C(101.7 ??F)] Heart Rate Heart Rate: 66 Heart Rate: [55-66] Blood Pressure BP: 152/90 BP: (148-188)/(64-98) Respiratory Rate Resp: 18 Resp: [18-22] SpO2 SpO2: 93 % SpO2: [93 %-97 %] Gen: Lying supine in bed, appears comfortable, NAD ENT: MMM CV: Nl rate, regular rhythm, no murmurs Pulm: Nl resp effort, good air entry, no wheezing, mild inspiratory crackles at left base GI: Abdomen soft, ND, mild TTP in LLQ, no HSM; left flank without rash or ecchymosis and is mildly TTP in a band anterior to posterior at the lower lumbar level Ext: 1+ pitting edema bilaterally in lower extremities Psych: Mood good, congruent affect LABS: Recent Labs 11/28/18 0508 11/27/18 0420 11/26/18 2350 WBC 11.4* 7.6 7.9 HGB 12.1* 12.8* 12.3* HCT 35.1* 37.6* 36.7* PLATELET 108* 109* 119* Recent Labs 11/26/18 2350 INR 1.1 Recent Labs 11/28/18 0508 11/27/18 1140 11/26/18 2350 NA 137 139 142 K 3.0* 3.4* 3.7 CL 99 103 104 CO2 26 22 24 BUN 10 14 21* CREATININE 1.46 1.51* 1.80* Recent Labs 11/26/18 2350 AST 34 ALT 22 ALKPHOS 52 BILITOT 0.6 BILIDIR 0.2 Recent Labs 11/28/18 0508 11/27/18 1140 11/26/18 2350 CALCIUM 8.3* 8.5 8.7 MAGNESIUM 0.74 -- -- PHOS 2.5 -- -- Lab Results Component Value Date CHLPL 139 11/27/2018 HDL 41 11/27/2018 CHOLHDL 3.4 11/27/2018 LDLDIRECT 99 11/27/2018 CK 333 -> 239 Troponin: <0.01 x3 UA showed some blood but no RBCs Urine Na 111, Cr 43 Imaging/Diagnostics: Renal Duplex 11/27 Interpretation: ? Right: Patent main renal artery with no evidence of hemodynamically significant stenosis. ?? Left: There is no identifiable flow by duplex in what is suspected to be the main renal artery; suspect occlusion. No arterial flow identified within the kidney. Patent renal vein. ?? Comparison: ??No previous study in our vascular lab database for comparison. 2nd read CT ab/pelvis 11/27: 1. Delayed left nephrogram, secondary to renal artery stenosis, given focal severe narrowing at the origin of the left renal artery on recent comparison study. 2. Small to moderate volume low density ascites throughout the abdomen and pelvis. ASSESSMENT and PLAN: Levi Bravo is a 58 y.o. male with no significant PMH admitted with left flank pain, renal dysfunction, and HTN. Initially our differential was broad for the renal disease and included primarily intrinsic renal processes. A FENA was 3.3%. There were findings on the referring hospital CT abdomen for unilateral renal disease. A second read was requested here and identified unilateral left DON. The left flank pain is concerning for ischemic nephropathy given the previous findings and his fever today could be Manifestation of this as well. After discussion with Nephrology and Vascular Surgery on 11/27, obtained duplex study of the left kidney revealing no flow to the left kidney. Started him on heparin gtt and continued medical management with amlodipine and RN hydralazine for blood pressure. It is unclear why he is exhibiting unilateral DON and absent blood flow to left kidney. Will work up possible embolic disease or vasculitis with TTE with bubble and labs listed below. Will further assess kidney with MRI abdomen/pelvis today. Depending on findings, may need to involve Vascular IR for potential stenting of left renal artery. # Renal failure, HTN 2/2 unilateral DON without flow to left kidney seen on duplex U/S # Fever of unknown origin likely 2/2 DON v. infection - amlodipine 5mg po qd - hydralazine IV prn - heparin gtt - Renal Artery Doppler - no flow through left renal artery - blood cx x2 - pending - UA - unrevealing - w/u etiology - DELON, c-ANCA, p-ANCA, complement levels, and hepatitis panel - TTE with bubble study - MRI abdomen/pelvis today - possible consult to Vascular IR - consult nephrology - consult vascular surgery - dilaudid 2mg q4 hr prn # Thrombocytopenia - peripheral smear #Housekeeping: - DVT PPx: Heparin gtt - GI PPx: none - Diet: Regular diet - Level of care: med/surg - Vitals: q4 Discussed Advanced Directives and Code Status. The patient wishes to be full code. Aydin Hidalgo MD PGY1 Internal Medicine Medicine Green Team [id number] M2 Hospital Medicine Service Attending Documentation ?? I certify that I am a D-H credentialed attending provider with admitting privileges and that the patient meets or has met medical necessity to require an inpatient IPI level of care meeting a minimumof two midnights or is on the [facility] inpatient only procedure list (status C) due to left flank pain with kidney infarction concerning for arterial thrombus and started on heparin gtt. Anticipated LOS > 48 hours. ?? Please see Dr. Hidalgo's note for details of the patient history of presentation and data. I have discussed, reviewed and agree with the documented History, Physical findings, Assessment and Plan of care. I have examined the patient myself and personally reviewed all studies. Discussed plan with patient and he is in agreement. Additions to the history, physical, assessment and plan include the following: ?? Appreciate Nephrology and Vascular Surgery input. Started on heparin gtt for concern L renal arterystenosis; L flank pain slightly improved. MRI angiogram today, read pending. Pending on results will discuss with IR/Vascular surgery if role for potential stenting. Improved BP control. No FMH clots, no prior clot. Can consider APLS, FactorV, prothrombin but unlikely given lack of prior clot and FMH. Cannot do full hypercoag eval until off therapeutic AC. TTE with normal LVEF. PASP 43. LA normal size. No PFO noted. TTE not done with contrast; unclear if able to rule out clot; may need to repeat limited TTE with contrast to assess for clot. Fever yesterday unclear etiology. Blood culture pending. UA not c/w infection. ? Related to infarcting kidney. ? Vasculitis (was on steroids prior to admission for 2 days); sending vasculitis panel. Note: did complete 2 days azithro prior to admission for possible resp infection If spikes again will repeat cultures (blood, repeat UA with reflex culture, and check CXR). If spiking fevers and HD unstable would start empiric abx (e.g. CTX +/- renal dose vanc) ?? Remainder as above. ?? MANUEL MARTIN MD documented in this encounter H&P Notes * Manuel Martin MD - 11/27/2018 6:43 AM EDT Medicine Admission H&P Patient Name: LEVI BRAVO Date of : 1960 Age: 58 y.o. Hospital Admit Date: 11/26/2018 Inpatient Attending: Dr. Martin PCP: Sonal Sorensen APRN Presenting Diagnosis/Chief Complaint: Left flank pain History of Present Illness: Levi Bravo is a 58 y.o. male with no significant medical history who presents with a chief complaint of left flank pain. He was in his usual state of health until 5 days ago. He felt his abdomen was distended and uncomfortable. Tums did not help. This was associated with shortness of breath at rest. It was not associated with nausea or vomiting, change in bowel habits, difficulty with urination, hematuria, or pain with urination. He denies swelling in his legs at that time. The SOB has been intermittent and most recently today. It is characterized by tachypnea, no difficulty with inspiration or expiration, no wheezing or pleurisy. He has had a nonproductive cough. The next day, he felt his heart rate was low. The third day (two days ago), he found his blood pressure to be 180, which was high for him. This prompted him to go to his local ED for evaluation. He was diagnosed with MUSA as well as PNA based on imaging of the chest. He received IV fluids and was discharged on steroids and antibiotics. He developed swelling in the legs following discharge from theED as well as a 12 lb weight gain. He says his urine output was normal. He was prompted to seek medical attention again yesterday at his local ED because of bloating, generally not feeling well and left flank pain. The pain is dull in quality with onset in the afternoon.It had a sudden increase to 8/10 in severity later in the day. Radiates around the front. Waxed an waned in severity over time but since coming to the ED here it has been persistently intense. Flexion of the left leg improves the pain. Nothing makes the pain worse. Wanted to seek care at this hospital and so he had took private transportation. He denies any fevers, chills, sweats, chest pain/pressure, blurry or double vision, bruising or easy bleeding, or dark or tarry stools. He had a CHRISTIANSON at the onset of symptoms which resolved promptly with ibuprofen. Denies sick contacts. Lives with and children at home. Never smoker, has 1-2 drinks per day. 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 Family History: Family History Problem Relation Age of Onset ??? Myocardial Infarction Father 52 Allergies: Allergies Allergen Reactions ??? Pseudafen [Pseudoephedrine Hcl] Medications: No current facility-administered medications on file prior to encounter. Current Outpatient Medications on File Prior to Encounter Medication Sig Dispense Refill ??? azithromycin (ZITHROMAX) 250 mg Tablet take 1 tablet by mouth daily (START ON DAY 2 OF THERAPY 0 ??? predniSONE (DELTASONE) 20 mg Tablet take 2 tablets (40MG) by mouth daily 0 ??? ketoconazole (NIZORAL) 2 % cream Apply topically daily. ??? ibuprofen (ADVIL;MOTRIN) 400 mg tablet Take 400 mg by mouth every 6 hours as needed. PHYSICAL EXAM: Last value Range last 24 hrs Temperature Temp: 37.3 ??C (99.1 ??F) Temp: [37.2 ??C (99 ??F)-37.3 ??C (99.1 ??F)] Heart Rate Heart Rate: 70 Heart Rate: [49-70] Blood Pressure BP: (!) 151/92 BP: (151-185)/(78-102) Respiratory Rate Resp: 20 Resp: [13-21] SpO2 SpO2: 93 % SpO2: [92 %-99 %] Gen: Lying supine in bed, appears comfortable, NAD ENT: MMM CV: Nl rate, regular rhythm, no murmurs Pulm: Nl resp effort, good air entry, no wheezing, mild inspiratory crackles at left base GI: Abdomen soft, ND, mild TTP in LLQ, no HSM; left flank without rash or ecchymosis and is mildly TTP in a band anterior to posterior at the lower lumbar level Ext: 1+ pitting edema bilaterally in lower extremities Psych: Mood good, congruent affect LABS: Recent Labs 11/27/18 0420 11/26/18 235 WBC 7.6 7.9 HGB 12.8* 12.3* HCT 37.6* 36.7* PLATELET 109* 119* Recent Labs 11/26/18 235 INR 1.1 Recent Labs 11/26/18 2350 NA 142 K 3.7 CL 104 CO2 24 BUN 21* CREATININE 1.80* Recent Labs 11/26/18 235 AST 34 ALT 22 ALKPHOS 52 BILITOT 0.6 BILIDIR 0.2 Recent Labs 11/26/18 235 CALCIUM 8.7 CK 333 UA showed some blood but no RBCs Urine Na 111, Cr 43 Imaging/Diagnostics: 2nd read CT ab/pelvis: 1. Delayed left nephrogram, secondary to renal artery stenosis, given focal severe narrowing at the origin of the left renal artery on recent comparison study. 2. Small to moderate volume low density ascites throughout the abdomen and pelvis. ASSESSMENT and PLAN: Levi Bravo is a 58 y.o. male with no significant PMH admitted with left flank pain, renal dysfunction, and HTN. Initially our differential was broad for the renal disease and included primarily intrinsic renal processes. A FENA was 3.3%. There were findings on the referring hospital CT abdomen for unilateral renal disease. A second read was requested here and identified unilateral left DON. This could readily explain the patient's significant and unexpected HTN (for a 58 y/o M with no previous medical history). It is unclear if he has underlying atherosclerotic disease. The left flank painis concerning for ischemic nephropathy given the previous findings. Plan for medical management, which includes BP management with an AKUA-I, and consultation with nephrology and vascular surgery. # Renal failure, HTN 2/2 DON - start captopril 6.25mg q8 - hydralazine IV prn - consult nephrology - consult vascular surgery - oxycodone 10mg q4 hr prn # Thrombocytopenia - peripheral smear #Housekeeping: - DVT PPx: Heparin subq - GI PPx: none - Diet: NPO - Level of care: med/surg - Vitals: q4 Discussed Advanced Directives and Code Status. The patient wishes to be full code. Benigno Cnitron MD Medicine [facility], [id number] Assign to [facility] [id number] @ 0775 M2 Hospital Medicine Service Attending Documentation I certify that I am a D-H credentialed attending provider with admitting privileges and that the patient meets or has met medical necessity to require an inpatient IPI level of care meeting a minimumof two midnights or is on the [facility] inpatient only procedure list (status C) due to left flank pain with kidney infarction concerning for arterial thrombus and started on heparin gtt. Anticipated LOS > [address] Cintron's note for details of the patient history of presentation and data. I have discussed, reviewed and agree with the documented History, Physical findings, Assessment and Plan of care. I have examined the patient myself and personally reviewed all studies. Discussed plan with patient and he is in agreement. Additions to the history, physical, assessment and plan include the following: Worsening L flank pain past 72 hours and concern for L DON on CT and MUSA. Appreciate input from Vascular Surgery and Nephrology. Per nephro, managing BP with hydralazine and amlodipine, and holding on giving an acei at this time. Goal SBPs 150s for now. Some mild improvement in Cr with IVF. PO intake improving and TBB goal +1L and will continue NS at 75 cc/hr. Will follow-up formal nephro recs. US duplex today notable for likely L renal artery occlusion; starting on heparin gtt. Defer need for possible thrombectomy to Vascular Surgery. Not aware of prior bleeding issues (will confirm) nor FMH of clots or prior clots (will confirm). Will need TTE w/ contrast/bubble to assess for PFO and clot. Mild thrombocytopenia noted; etiology not clear. Monitor closely, smear pending. Will renal dose meds; change oxycodone/morphine to low dose dilaudid. No current indication for steroids (started 3 days ago for possible URI process) and agree with d/c. No current concern for infectious process, and also agree with stopping azithromycin. Low threshold to obtain blood cultures and repeat UA if spikes fever, and consider empiric abx in that setting. Remainder as above. MANUEL MARTIN MD documented in this encounter ED Notes * Lucia Krueger RN - 11/27/2018 2:18 AM EDT Friend Nazanin ([phone]) is available as first contact for patient, of [place] is out of the country. * Lucia Krueger RN - 11/27/2018 2:[address] Cardozo previously in to see patient. * Jp Cardozo - 11/27/2018 12:20 AM EDT ED Resident Note Levi Bravo is an 58 y.o. male who presents to the ED with: Chief Complaint Patient presents with ??? Flank Pain left I saw this patient on 11/27/2018. History is from patient. HPI Levi Bravo is a 58 y.o. male with no pertinent pmh who presents to the Emergency Department withLeft flank pain. Flank pain started this afternoon at roughly 6 PM. Located in the left flank with radiation to the left lower quadrant. Sharp constant pain no specific aggravating or alleviating factors. No other history of similar pain. no prior history of kidney stones. Patient having normal bowel movements. Passing flatus. No associated fevers, chills, nausea, vomiting, diarrhea, dysuria, hematuria, melena, hematochezia. of note, patient was previously seen and treated [facility] earlier today and was recommended admission.Patient initially presented 2 days ago for evaluation of shortness of breath and chest pain. Labs notable for elevated d-dimer, AK I. Due to concern for pulmonary embolism CTA obtained which showed no evidence of PE but did show questionable pulmonary nodule, atypical vasculature and atypical secondary pneumonia. Acute kidney injury was treated with 3 L normal saline and patient was discharged onp.o. azithromycin and prednisone. Patient presented to [facility] again today for reported abdominal pain, 12 pound weight gain, abdominal distention. Labs showed persistence of AK I (mean = 1.97, BUN = 25), elevated proBNP = 3000. CT abdomen pelvis Noncon was obtained. This showed evidence of trace pleural effusion, moderate ascites and retention of contrast in the left kidney concerning for kidney failure. Patient's case was discussed with [facility] nephrology. Reported concern for renal artery stenosis versus vasculitis versus infection. At that point, it was recommended the patient be admitted to the hospital for further management of AK I and further evaluation of his kidney. Patient was not having left flank pain at that time. Prior to current presentation patient had been previously healthy with no chronic health conditions. PMH: No past medical history on file. Review of Systems: Review of Systems 10 point review of systems negative other than stay in the HPI Physical Exam: Temp: [37.2 ??C (99 ??F)] Heart Rate: [49-57] Resp: [13-21] BP: (153-185)/(78-102) SpO2: [92 %-99 %] Heart Rate from SpO2: [49 bpm-57 bpm] General: AAOx4. Patient in obvious discomfort. HEENT: normocephalic/atraumatic, EOMI, PERRL, MMM. Oropharynx clear, pink, moist without erythema/exudates. Neck: supple, full range of motion Cardiovascular: Mildly bradycardic rate, regular rhythm, S1/2, no murmurs, rubs, gallops. peripheral pulses intact bilaterally. no LE edema Pulmonary: LCTAB Abdomen: soft, nondistended. Mild left flank and redness. Mild left CVA tenderness. Skin: no rashes, no bruising, no lesions MSK: no deformities. Neuro: CN II-XII grossly intact bilaterally. Psych: normal mood and thought pattern. ED Course: - Patient seen under the supervision of the attending physician. - Medications, allergies, and past medical history reviewed. Recent Results (from the past 24 hour(s)) Urinalysis with reflex Culture Result Value Ref Range Glucose UA Negative Negative mg/dL Protein UA Negative Negative mg/dL Bilirubin UA Negative Negative mg/dL Urobilinogen UA Normal Normal mg/dL pH UA 5.0 5.0 - 8.0 Blood UA Small (A) Negative mg/dL Ketones UA Negative Negative mg/dL Nitrite UA Negative Negative Leukocytes UA Negative Negative mcL Appearance UA Clear Clear Spec Prince UA 1.005 1.002 - 1.030 Color UA Straw Yellow Culture Reflexed No Urinalysis Microscopic Exam Result Value Ref Range RBC UA 0 0 - 3 /HPF WBC UA <1 0 - 3 /HPF Bacteria UA Rare (A) None /HPF Basic Metabolic Panel (non-fasting) Result Value Ref Range Glucose Lvl 114 65 - 199 mg/dL BUN 21 (H) 10 - 20 mg/dL Creatinine 1.80 (H) 0.80 - 1.50 mg/dL Sodium 142 135 - 145 mmol/L Potassium 3.7 3.5 - 5.0 mmol/L Chloride 104 98 - 107 mmol/L CO2 24 22 - 31 mmol/L Anion Gap 14 5 - 15 mmol/L Calcium 8.7 8.5 - 10.5 mg/dL eGFR 41 (L) >=60 mL/min/1.73 m?? eGFR 47 (L) >=60 mL/min/1.73 m?? Hepatic Function Panel Result Value Ref Range Total Protein 6.0 (L) 6.1 - 8.0 gm/dL Albumin 3.9 3.2 - 5.2 gm/dL AST 34 0 - 39 unit/L ALT 22 0 - 55 unit/L Alk Phos 52 40 - 120 unit/L Total Bilirubin 0.6 0.2 - 1.3 mg/dL Bili, Direct 0.2 0.0 - 0.3 mg/dL Prothrombin Time Result Value Ref Range PT 12.6 (H) 9.4 - 12.5 sec INR 1.1 APTT Result Value Ref Range PTT 23 (L) 25 - 37 sec Hemogram Result Value Ref Range WBC 7.9 4.0 - 9.5 x10(3)/mcL RBC 3.97 (L) 4.58 - 5.54 x10(6)/mcL Hemoglobin 12.3 (L) 13.7 - 16.5 gm/dL Hematocrit 36.7 (L) 40.5 - 48.5 % MCV 92.4 82.9 - 93.1 fL MCH 31.0 27.5 - 32.1 pg MCHC 33.5 32.0 - 35.7 gm/dL Platelets 119 (L) 145 - 357 x10(3)/mcL RDWSD 41.0 36.0 - 45.0 fL RDWCV 12.0 11.4 - 13.8 % MPV 12.6 7.6 - 12.9 fL nRBC % Auto 0.0 % nRBC Abs Auto 0.000 0.000 - 0.000 x10(3)/mcL Differential, Automated Result Value Ref Range Neutrophils % 74.0 % Neutr Abs (ANC) 5.83 1.70 - 6.10 x10(3)/mcL Lymphocytes % 12.2 % Lymphocytes Abs 1.0 0.9 - 3.2 x10(3)/mcL Monocytes % 12.6 % Monocyte Abs 1.0 (H) 0.3 - 0.9 x10(3)/mcL Eosinophils % 0.0 % Eosinophils Abs 0.0 0.0 - 0.4 x10(3)/mcL Basophils % 0.8 % Basophils Abs 0.1 0.0 - 0.1 x10(3)/mcL Immature Gran % 0.40 % [place] Gran Abs 0.03 0.00 - 0.04 x10(3)/mcL Medications given: Medications hydrALAZINE (APRESOLINE) injection 5 mg (not administered) morphine 2 mg/mL injection syringe 2 mg (2 mg Intravenous Given 11/26/18 0576) morphine 2 mg/mL injection syringe 2 mg (2 mg Intravenous Given 11/27/18 0058) hydrALAZINE (APRESOLINE) injection 5 mg (5 mg Intravenous Given 11/27/18 9672) Assessment and Plan: 58 y.o. male with history of atypical pneumonia, acute kidney injury presents with acute onset leftflank pain. Patient afebrile, hypertensive but otherwise HDS. Patient intermittently bradycardic. Physical exam notable for mild left flank and CVA tenderness and patient in obvious discomfort. Patient given morphine for analgesia. Workup included CBC, BMP, LFTs, UA, coags. Lab work notable for mild anemia, mild thrombocytopenia and persistence of AK I. Exact etiology of the patient's symptoms isunclear but current differential includes vasculitis (granulomatosis with polyangiitis), TTP, renalartery stenosis. Patient will be admitted to the hospital medicine team for further pain control and evaluation/management of symptoms. Signout given to overnight EM provider. relevant HPI/findings, vitals, and labs/results discussed. Currently planned disposition is: Admission to hospital medicine. Jp Cardozo MD Resident 11/27/18 0434 Associated attestation - Mariza Flanagan MD - 11/27/2018 4:36 AM EDT ED ATTENDING ATTESTATION NOTE The patient was seen in conjunction with Dr. Cardozo, the resident physician. I have independently performed the oneil portions of the history and physical exam. I have reviewed the nursing notes, vital signs, and all diagnostic studies personally including labs, imaging studies and EKGs. I have discussed the details of the case with the resident and agree with the assessment and plan as described in the resident note above unless noted otherwise below. * Lucia Krueger RN - 11/26/2018 11:[address] Cardozo previously at the bedside. * Jesi Huffman RN - 11/26/2018 10:11 PM EDT Friend up to nursing station asking about wait time. Stating increase in flank pain, no acute distress at this time * Jesi Huffman RN - 11/26/2018 9:30 PM EDT Pt asking about wait time. Educated to wait time. Ambulatory with steady gait, remains A&O times 4. Continues to complain flank pain documented in this encounter Miscellaneous Notes * Consult Note - Flaco Dubois MD - 12/01/2018 9:07 AM EDT [facility] Department of Surgery Inpatient Consult Note Consultation Requested by: Manuel Martin MD HPI: We are seeing Levi Bravo today at the request of Dr. Manuel Martin MD for evaluation and advice about bleeding hemorrhoid. Levi Bravo is a 58 y.o. male with no significant PMH who was admitted on Wednesday with 5 days of left flank pain and MUSA with CT scan and MRI suggesting severe stenosis of his left renal artery. At this time he is being managed by hospital medicine and vascular surgery with a continuous heparin drip and started to report rectal bleeding. Mr. Bravo reports having a long history of hemorrhoids that have always been reducible and caused minimal pain with no bleeding. He said he last noted having external hemorrhoids 10 days prior to admission. Reports having regular bowel movements and his lastcolonoscopy was at the age of 50 without any significant findings. Today he reports having two small bowel movements overnight without any bleeding. #BMs/day: 1-2/d, soft formed non-bloody Incontinence: never Colonoscopy Hx: Last colonoscopy at 50, in [facility], reports no abnormal findings or polyps PMH: No past medical history on file. PSH: No past surgical history on file. HOME MEDICATIONS: No current facility-administered medications on file prior to encounter. Current Outpatient Medications on File Prior to Encounter Medication Sig Dispense Refill ??? azithromycin (ZITHROMAX) 250 mg Tablet take 1 tablet by mouth daily (START ON DAY 2 OF THERAPY 0 ??? predniSONE (DELTASONE) 20 mg Tablet take 2 tablets (40MG) by mouth daily 0 ??? ketoconazole (NIZORAL) 2 % cream Apply topically daily. ??? ibuprofen (ADVIL;MOTRIN) 400 mg tablet Take 400 mg by mouth every 6 hours as needed. ACTIVE MEDICATIONS: Scheduled Meds: ??? potassium, sodium phosphates 3 g Oral Once ??? enoxaparin 70 mg Subcutaneous 2 times per day ??? sodium chloride 0.9 % 5 mL Intravenous BID ??? amLODIPine 5 mg Oral Daily ??? hydrocortisone 1 each Topical (Top) BID Continuous Infusions: PRN Meds:.docusate sodium, simethicone, sodium chloride 0.9 %, lidocaine, acetaminophen, hydrALAZINE, HYDROmorphone ALLERGIES: Allergies Allergen Reactions ??? Pseudafen [Pseudoephedrine Hcl] SOCIAL HISTORY: Social History Socioeconomic History ??? Marital status: [...] Sexual Activity ??? Alcohol use: Yes Alcohol/week: 8.4 oz [...] file Gets together: Not on file Attends gnosticist service: Not on file Active member of club or organization: Not on file Attends meetings of clubs or organizations: Not on file Relationship status: Not on file ??? Intimate partner violence: Fear of current or ex partner: Not on file Emotionally abused: Not on file Physically abused: Not on file Forced sexual activity: Not on file Other Topics Concern ??? Not on file Social History Narrative ??? Not on file ROS: As stated above, otherwise 10 systems negative PHYSICAL EXAM Temp: [37.3 ??C (99.1 ??F)-38.5 ??C (101.3 ??F)] Heart Rate: [56-84] Resp: [20-24] BP: (117-129)/(68-78) SpO2: [96 %-99 %] Heart Rate from SpO2: [54 bpm-84 bpm] Gen: NAD sitting upright in bed with guitar at bedside HEENT: atraumatic normocephalic CV: RRR Pulm: clear to auscultation b/l, no respiratory distress. Rectum: no evidence of hemorrhoid or active bleeding, normal sphincter tone, normal exam GI: soft, non-tender Ext: pulses 2+ Neuro: no focal deficits, conversant LABORATORY DATA Recent Labs 12/01/18 0600 11/30/18 0456 11/29/18 0456 WBC 8.2 10.9* 11.6* HGB 11.3* 11.4* 12.4* PLATELET 124* 104* 107* NA 140 138 137 K 3.8 3.7 3.8 CL 104 104 102 CO2 25 24 24 BUN 14 14 12 CREATININE 1.32 1.36 1.49 MAGNESIUM 0.86 0.84 0.88 PHOS 2.3* 1.9* 2.0* LFT's No results found for: ALKPHOS, AST, ALBUMIN, BILIDIR, BILITOT, ALT, PROT Coags No results found for: INR, PT, PTT IMPRESSION: Levi Bravo is a 58 y.o. male with severe left renal artery stenosis requiring therapeutic anticoagulation and has developed a bleeding hemorrhoid. Today ,Mr. Bravo reports having 2 bowel movements without evidence of bleeding. On examination there was no evidence of external hemorrhoid or active bleeding on JENNIFER. RECOMMENDATION: 1. At this time no indication for further management 2. If patient continues to have symptoms please call our office with any questions and we would be happy to schedule an appointment 3. Please schedule a future colonoscopy Thank you for this consult. If you have any questions regarding this consult, please page [phone] (Nights) if you have any further questions. - Consult service to Sign Off * Med Student Progress Note - Abby Stevens - 12/01/2018 6:56 AM EDT Inpatient Medicine Progress Note Patient Name: Levi Bravo Date of Admission: 11/26/2018 ( Hospital Day 4 days ) Service: [facility] - [place] team Attending: Manuel Martin ID: Levi Bravo is a 58 y.o. male with no significant past medical history here on hospital day 4for newly onset left renal artery stenosis and MUSA. Active Problems: Active Hospital Problems Diagnosis ??? Elevated serum creatinine ??? Flank pain ??? Renal artery stenosis Resolved Hospital Problems No resolved problems to display. 24 hr events/Subjective: Yesterday, we noticed a bleeding hemorrhoid. Per colorectal consult, since the bleeding is not emergent, if he continues to have significant bleeding, they would see him in clinic tomorrow and perform exam +/- anoscopy and sclerosing. Coloractal surgery stopped by and examined him, and they did not find a significant hemorrhoid hence did not recommend any intervention at this point. He had 2 loose BMs last night, which was uncomfortable. He was febrile overnight up to 38.9 which was very uncomfortable for him. the fever was responsive to acetaminophen. His systolic BP has been <150 yesterday, hence he received no PRNs for BP management. He reported that his left flank is continuing to improve. No chest pain, no SOB, no abdominalpain. Physical Exam: Last value Range last 24 hrs Temperature Temp: 37.6 ??C (99.6 ??F) Temp: [37.3 ??C (99.1 ??F)-38.5 ??C (101.3 ??F)] Heart Rate Heart Rate: 61 Heart Rate: [56-72] Blood Pressure BP: 129/76 BP: (119-141)/(71-92) Respiratory Rate Resp: 22 Resp: [20-24] SpO2 SpO2: 99 % SpO2: [96 %-99 %] Intake/Output Summary (Last 24 hours) at 12/01/2018 0656 Last data filed at 11/30/20182032 Gross per 24 hour Intake 5 ml Output 500 ml Net -495 ml cumulative I/O's since admission: Patient Vitals for the past 168 hrs: Weight 11/30/18 0721 68.5 kg (151 lb 1.6 oz) 11/29/18 0944 67.7 kg (149 lb 3.2 oz) 11/28/18 0430 66.3 kg (146 lb 1.6 oz) 11/26/182056 62.6 kg (138 lb) Admit wt: 62.6kg (note: this was a reported weight) Gen: pleasant male in NAD HEENT: MMM CV:RRR, s1/s2 of nl character and amplitude, no m/r/g, JVP <5cm Resp: CTAB Abd: nondistended, soft, nabs throughout. Mild tenderness to palpation in the left flank region. Ext: WWP, ++ dp/pt pulses, no pitting edema bilaterally in lower extremities. Neuro: alert and responsive. Without focal deficit Labs CBC: Recent Labs 12/01/18 0600 11/30/18 0456 11/29/18 0456 WBC 8.2 10.9* 11.6* HGB 11.3* 11.4* 12.4* HCT 33.8* 33.0* 36.2* PLATELET 124* 104* 107* BMP: Recent Labs 12/01/18 0611/30/18 0456 11/29/18 0456 NA 140 138 137 K 3.8 3.7 3.8 CL 104 104 102 CO2 25 24 24 BUN 14 14 12 CREATININE 1.32 1.36 1.49 Recent Labs 12/01/18 0600 11/30/18 0456 11/29/18 0456 CALCIUM 7.9* 7.9* 7.8* MAGNESIUM 0.86 0.84 0.88 PHOS 2.3* 1.9* 2.0* LFTs Recent Labs 11/26/18 2350 AST 34 ALT 22 ALKPHOS 52 BILITOT 0.6 BILIDIR 0.2 Coagulation: Recent Labs 11/26/18 2350 INR 1.1 PT 12.6* PTT 23* Cardiac: Recent Labs 11/27/18 2148 11/27/18 1140 11/27/18 0420 CK -- 239* 333* TROPONINT <0.01 <0.01 <0.01 CRP pending Sed rate 24 (H) C3, C4 normal LDH 381 (H) Hep A Ab positive DELON negative c-ANCA, p-ANCA still pending Imaging/Studies: Second read CT from 11/24/18 Subpleural parenchymal opacity in the right lower lobe on axial images is elongate and branching onsagittal reconstruction, likely an area of parenchymal scarring or organizing-type inflammatory/infectious change. Noncontrast chest CT follow-up in 6 weeks to 3 months is suggested to assess resolution/improvement versus persistence. Meds: ??? senna-docusate 1 tablet Oral Daily ??? sodium chloride 0.9 % 5 mL Intravenous BID ??? amLODIPine 5 mg Oral Daily ??? hydrocortisone 1 each Topical (Top) BID ??? heparin (porcine) 1,550 Units/hr (12/01/18 0645) Assessment: 58 y.o. male no significant past medical history presented with left flank pain, and was found to have non-oliguric acute kidney injury, left renal stenosis, and secondary hypertension. He is hemodynamically stable, with much improved pain and BP control with systolic consistently <150. Plan discharge today. ?? Yesterday, Mr. Bravo had lengthy discussion with Dr Castellano regarding risks benefits of renal angiogram and possible stenting. It was explained that considering the duration of ischemia to the left kidney recovery of renal function in that kidney from a stent is unlikely, though not impossible. In ad dition renal angiogram would provide information as to whether this is a severe stenosis of an occlusion. Risks of surgery include accesss site complication and embolization (both unlikely, though also possible). The acute elevation (presumed) of creatinine and current stabilization/normalizezation suggests that this was an acute process, likely embolic/thrombolic. The etiology for his arterial hypercoagulable state is still unclear: no atrial thrombus on TTE, negative blood culture, no A Fib on admission. We are working up an autoimmune panel for vasculitis (c-ANCA, p-ANCA still pending), but we have notruled out neoplasm especially in the context of elevated LDH and low platelets (though more likely due to renal necrosis). Plan: # Discharge recommendations - Follow up with nephrology and vascular surgery as an outpatent - consider a hypercoagulation workup - consider colonoscopy given his recent minor bleeding and per screening guideline. - continue monitoring the temperature. If the fever worsens and/or stop responding to acetaminophen, consider infection workup. - adjust bowel regimen and diet to keep the stools soft # Left renal artery stenosis # Left flank pain Diagnostics: - f/u autoimmune panel: c-ANCA, p-ANCA - schedule angiogram for next Wednesday w Dr Castellano at 7:30 am. Thus lovenox should last be taken on morning. Meds: -??amlodipine 5mg po qd - hydralazine IV prn - heparin gtt, will switch to oral prior to discharge - continue replenishing K (goal 3.5) and phos ?? # fever of unknown origin The pain is most likely due to systemic inflammatory response to the upper pole renal necrosis. If this does not improved in 3-5 days, we will consider a more thorough infection work up. - continue acetaminophen prn - f/u blood culture x2 # thrombocytopenia - continue following. # hemorrhoids No bleeding since yesterday. Rectal exam only revealed a small hemorrhoid that had trace blood. - Colorectal surgery did not recommend anoscopy and sclerosing - continue following CBC hemoglobin trend - will continue monitoring - stopped pericolace and miralax to decrease BM frequency. ?? # compressed atelectasis Improved on physical exam today. - continue intensive spirometer use. # Pulmonary hypertension Estimated PASP was found to be high with normal RV function and no symptoms. May indicate some pulmonary vascular pathology. No acute concerns at this point. # Misc - DVT ppx: ambulatory - GI ppx: simethicone, stopped miralax and Pericolace - Diet: NPO right now. - Access: PIV - Dispo: pending course - code status: Full Code Mouna Stevens, MS3 [facility] Medicine Green Team Pager [phone] 12/01/18 * Plan of Care - Raquel Santana RN - 12/01/2018 5:33 AM EDT Problem: Patient Care Overview Goal: Plan of Care Review Outcome: Ongoing (Interventions Implemented as Appropriate) 12/01/18 1457 Plan of Care Review Progress progress toward functional goals as expected Coping/Psychosocial Plan Of Care Reviewed With patient OUTCOME EVALUATION NOTE: OUTCOME SUMMARY: Pt A/O x4 VSS temp elevated at the beginning of the shift 38-38.4C. Pt denied pain but felt sweaty.PRN tylenol given for fever. Pt denied SOB, CP or nausea. Heparin gtt maintained. Gave 2200 unit bolus and increased the rate to 1550 units per policy d/t UFH subtherapeutic. At midnight UFH was 0.47. Pt tolerating well. Up to the BR independently. Had x2 BM around 2100. Voiding w/o difficulty concentrated prema urine. Pt sleeping between care PLAN MOVING FORWARD: Monitor temp, continue heparin gtt, encourage mobility, prepare for d/c when appropriate INDIVIDUALIZED FALL PREVENTION INTERVENTIONS: Patient-specific fall risk factors per assessment: [current deficits]: Medium fall risk Assistance [level of assistance required for transfers and ambulation]: Independent Supervision [direct monitoring required during toileting and ADLs]: Independent Surveillance [continuous indirect monitoring]: Hourly rounding, bed alarm Patient-specific fall prevention interventions for sensory deficits provided, if applicable: [X] No CPG GOAL OUTCOME EVALUATION: * Consult Note - Flaco Dubois MD - 11/30/2018 6:40 PM EDT [facility] Department of Surgery Inpatient Consult Note Consultation Requested by: Manuel Martin MD HPI: We are seeing Levi Bravo today at the request of Dr. Manuel Martin MD for evaluation and advice about bleeding hemorrhoid. Levi Bravo is a 58 y.o. male with no significant PMH who was admitted on Wednesday with 5 days of left flank pain and MUSA with CT scan and MRI suggesting severe stenosis of his left renal artery. At this time he is being managed by hospital medicine and vascular surgery with a continuous heparin drip and started to report rectal bleeding. Mr. Bravo reports having a long history of hemorrhoids that have always been reducible and caused minimal pain with no bleeding. He said he last noted having external hemorrhoids 10 days prior to admission. Reports having regular bowel movements and his lastcolonoscopy was at the age of 50 without any significant findings. Today he reports having a small bowel movement with small amounts of blood. #BMs/day: 1-2/d, soft formed non-bloody Incontinence: never Colonoscopy Hx: Last colonoscopy at 50, in [facility], reports no abnormal findings or polyps PMH: No past medical history on file. PSH: No past surgical history on file. HOME MEDICATIONS: No current facility-administered medications on file prior to encounter. Current Outpatient Medications on File Prior to Encounter Medication Sig Dispense Refill ??? azithromycin (ZITHROMAX) 250 mg Tablet take 1 tablet by mouth daily (START ON DAY 2 OF THERAPY 0 ??? predniSONE (DELTASONE) 20 mg Tablet take 2 tablets (40MG) by mouth daily 0 ??? ketoconazole (NIZORAL) 2 % cream Apply topically daily. ??? ibuprofen (ADVIL;MOTRIN) 400 mg tablet Take 400 mg by mouth every 6 hours as needed. ACTIVE MEDICATIONS: Scheduled Meds: ??? sodium chloride 0.9 % 5 mL Intravenous BID ??? amLODIPine 5 mg Oral Daily ??? hydrocortisone 1 each Topical (Top) BID Continuous Infusions: ??? heparin (porcine) 1,400 Units/hr (11/30/18 5944) PRN Meds:.simethicone, heparin (porcine) AND heparin (porcine), sodium chloride 0.9 %, lidocaine, acetaminophen, hydrALAZINE, HYDROmorphone ALLERGIES: Allergies Allergen Reactions ??? Pseudafen [Pseudoephedrine Hcl] SOCIAL HISTORY: Social History Socioeconomic History ??? Marital status: [...] Sexual Activity ??? Alcohol use: Yes Alcohol/week: 8.4 oz [...] file Gets together: Not on file Attends gnosticist service: Not on file Active member of club or organization: Not on file Attends meetings of clubs or organizations: Not on file Relationship status: Not on file ??? Intimate partner violence: Fear of current or ex partner: Not on file Emotionally abused: Not on file Physically abused: Not on file Forced sexual activity: Not on file Other Topics Concern ??? Not on file Social History Narrative ??? Not on file ROS: As stated above, otherwise 10 systems negative PHYSICAL EXAM Temp: [37.3 ??C (99.1 ??F)-38.9 ??C (102 ??F)] Heart Rate: [56-72] Resp: [18-24] BP: (119-150)/(71-92) SpO2: [96 %-100 %] Heart Rate from SpO2: [54 bpm-74 bpm] Gen: NAD sitting upright in bed with guitar at bedside HEENT: atraumatic normocephalic CV: RRR Pulm: clear to auscultation b/l, no respiratory distress. Rectum: small hemorrhoid at left lateral region with minimal spotting blood on exam, normal sphincter tone GI: soft, non-tender Ext: pulses 2+ Neuro: no focal deficits, conversant LABORATORY DATA Recent Labs 11/30/18 0456 11/29/18 0456 11/28/18 1137 11/28/18 0508 WBC 10.9* 11.6* -- 11.4* HGB 11.4* 12.4* -- 12.1* PLATELET 104* 107* -- 108* NA 138 137 -- 137 K 3.7 3.8 4.0 3.0* CL 104 102 -- 99 CO2 24 24 -- 26 BUN 14 12 -- 10 CREATININE 1.36 1.49 -- 1.46 MAGNESIUM 0.84 0.88 -- 0.74 PHOS 1.9* 2.0* -- 2.5 LFT's No results found for: ALKPHOS, AST, ALBUMIN, BILIDIR, BILITOT, ALT, PROT Coags No results found for: INR, PT, PTT IMPRESSION: Levi Bravo is a 58 y.o. male with severe left renal artery stenosis requiring therapeutic anticoagulation and has developed a bleeding hemorrhoid. RECOMMENDATION: 1. At this time his bleeding appears to be non-emergent and if patient continues to have significant bleeding we would be happy to see him in clinic tomorrow and perform an examination with possible anoscopy and sclerosing 2. Continue to follow CBC hemoglobin trend Thank you for this consult. If you have any questions regarding this consult, please page [phone]([phone] (Nights) if you have any further questions. - Consult service to continue to follow * Plan of Care - Saskia Cohen RN - 11/30/2018 4:09 PM EDT Problem: Patient Care Overview Goal: Plan of Care Review Outcome: Ongoing (Interventions Implemented as Appropriate) 11/30/18 0440 11/30/18 1000 Plan of Care Review Progress progress toward functional goals is gradual -- Coping/Psychosocial Plan Of Care Reviewed With -- patient OUTCOME EVALUATION NOTE: OUTCOME SUMMARY: Pt A&O 4x w/ c/o only minor flank discomfort intermittently, managed by Tylenol given 1x for temp 100.8. Heparin gtt maintained @ 1400U/hr per protocol - see MAR. LR d/c @ 1500. Pt declined IR arteriogram in am d/t pts feelings of lack of communication - MD aware and at bedside to speak w/ pt. Diet advanced to regular. Neutra-phos given for phos of 1.9 - see MAR/results review. Pt reported scant rectal bleeding - MD notified and at bedside to preform rectal exam, awaiting colo/rectal recs. Pt reported a new small bruise on back of L heel - MD notified, will continue to monitor. Pt ambulating around unit independently. Pt remains free from falls, bed in low position. Call cervantes remains inreach and pt encouraged to make needs known. Will continue to monitor and report any changes. PLAN MOVING FORWARD: Address hemorrhoid, Nuc Med Renal Perfusion Study INDIVIDUALIZED FALL PREVENTION INTERVENTIONS: Patient-specific fall risk factors per assessment: [current deficits]: IV sites, Masimo Assistance [level of assistance required for transfers and ambulation]: Independent Supervision [direct monitoring required during toileting and ADLs]: Independent Surveillance [continuous indirect monitoring]: Environmental Surveillance, Purposeful Rounding, Bedside Report, Bed near unit station. Patient-specific fall prevention interventions for sensory deficits provided, if applicable: [X] Yes CPG GOAL OUTCOME EVALUATION: * Consult Note - Shashank Castellano MD - 11/30/2018 12:42 PM EDT Patient Name: Levi Bravo Patient Age: 58 y.o. Birthdate: 1960 Admit date: 11/26/2018 Attending Physician: Manuel Martin MD Vascular Surgery Inpatient Consultation Date of Consultation: 11/30/2018 Consult Service: Vascular Surgery Place of Service: ( ) Emergency Department (X) Inpatient Unit ( ) Critical care Responsible Attending: Dr. Castellano Reason for Consult: We are seeing Levi Bravo at the request of Dr. Manuel Martin MD in consultation for left renal artery occlusion. I have reviewed the available records, interviewed and examinedthe patient. History of Present Illness: Levi Bravo is a 58 y.o. male non smoker who was admitted on Wednesday after 5 days left flank pain,MUSA and scans suggestive of occlusion vs severe stenosis of left renal artery. CT scan from 11/24 and MRI from 11/28 suggest severe stenosis in main left renal, though duplex on 11/27 showed no flow in the left renal. In the interim pt has remained on heparin drip. No atrial thrombus on echo. Cr down trending now 1.36. Interval Remains on heparin drip Discussed risks and benefits of attempted left renal artery angiogram and possible stent Main benefit would be definitive answer as to renal stenosis vs occlusion and there may be some improvement in left kidney function following stenting though that is unclear, main risks are ~5% risk access site complication and ~5% risk embolization Pt reviewed case in detail w Dr Castellano and continues to consider angiogram Continues to have episodic fevers Blood cultures neg to date Review of Systems: P/w left flank pain No chest pain No SOB No abd pain Past Medical History: MUSA/left renal artery occlusion vs stenosis GERD Past Surgical History: No past surgical history on file. 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 Myocardial Infarction Father 52 Home Medications: No current facility-administered medications on file prior to encounter. Current Outpatient Medications on File Prior to Encounter Medication Sig Dispense Refill ??? azithromycin (ZITHROMAX) 250 mg Tablet take 1 tablet by mouth daily (START ON DAY 2 OF THERAPY 0 ??? predniSONE (DELTASONE) 20 mg Tablet take 2 tablets (40MG) by mouth daily 0 ??? ketoconazole (NIZORAL) 2 % cream Apply topically daily. ??? ibuprofen (ADVIL;MOTRIN) 400 mg tablet Take 400 mg by mouth every 6 hours as needed. Allergies Allergies Allergen Reactions ??? Pseudafen [Pseudoephedrine Hcl] Physical Exam: Temp: [37.2 ??C (99 ??F)-38.9 ??C (102 ??F)] Heart Rate: [56-66] Resp: [18-24] BP: (121-150)/(77-92) SpO2: [94 %-100 %] Heart Rate from SpO2: [54 bpm-66 bpm] General: NAD, resting comfortably. HEENT: PERRL, anicteric sclerae. CVS: Regular. Abd: Mild tenderness L flank w deep palpation No abd tenderness Pulm: Normal work of breathing on room air. GI: Abdomen soft, non tender, non distended. MS: Legs warm Neuro: Grossly nonfocal, moving all extremities. Vascular Palpable femoral DP and radial pulses bilat Labs: Recent Labs 11/30/18 0456 11/29/18 0456 11/28/18 0508 WBC 10.9* 11.6* 11.4* HGB 11.4* 12.4* 12.1* HCT 33.0* 36.2* 35.1* PLATELET 104* 107* 108* Recent Labs 11/30/18 0456 11/29/18 0456 11/28/18 1137 11/28/18 0508 NA 138 137 -- 137 K 3.7 3.8 4.0 3.0* CL 104 102 -- 99 CO2 24 24 -- 26 BUN 14 12 -- 10 CREATININE 1.36 1.49 -- 1.46 PHOS 1.9* 2.0* -- 2.5 CALCIUM 7.9* 7.8* -- 8.3* Pertinent Radiographic/Diagnostic Results: MRI/MRA 11/28 1. Critical stenosis at the origin of the left renal artery, with segmental areas of decreased perfusion/nonenhancement predominantly involving the mid to upper pole as well as wedge-shaped segmental focus in the lower pole representing renal infarcts. 2. Small to moderate ascites. CT 11/24 Severe stenosis at proximal left renal, thereafter patent Duplex 11/27 There is no identifiable flow by duplex in what is suspected to be the main renal artery; suspect occlusion. No arterial flow identified within the kidney. Patent renal vein. Assessment/Recommendation: Levi Bravo is a 58 y.o. male who presents with spontaneous L renal artery occlusion, with symptom (left flank pain) present x 1 week. No clear etiology based on imaging to date - no atrial thrombus on echo, blood cx neg (thus no evidence of endocarditis), no episodes afib on admission. Pt had lengthy discussion midday with Dr Castellano regarding risks benefits of renal angiogram and possible stenting. It was explained that considering the duration of ischemia to the left kidney recovery of renal function in that kidney from a stent is unlikely, though not impossible. In addition renal angiogram would provide information as to whether this is a severe stenosis of an occlusion. Risks of surgery include accesss site complication and embolization (both unlikely, though also possible). Thus at this point pt would like to consider whether he would like the angiogram. It certainly is not essential, as the main treatment at this point is anticoagulation and BP control. We would like for pt to be anticoagulated 6 months. Should he be discharged and would like to pursue anticoagulation, he should be discharged on lovenox. Can schedule angiogram for next Wednesday w Dr Castellano at 7:30 am. Thus lovenox should last be taken on morning. We will cont to follow. Please page me at [phone] if any questions arise. Mago Mena MD/HOSSEIN, PGY-5 Section of Vascular Surgery, Pager [phone] Attending Addendum: I saw and evaluated Mr. Bravo. We had a long discussion about the indications, risks, and benefits of doing a renal angiogram. He understands that the procedure would serve to 1. Delineate whether the left renal artery is occluded or just stenosed, and 2. If it is stenosed, could potentially treat with stent. He wants to deliberate further about proceeding versus watching. Will follow along and await his decision. Shashank Castellano MD, MS Section of Vascular Surgery * Med Student Progress Note - Abby Stevens - 11/30/2018 6:46 AM EDT Inpatient Medicine Progress Note Patient Name: Levi Bravo Date of Admission: 11/26/2018 ( Hospital Day 3 days ) Service: [facility] - [place] team Attending: Manuel Martin ID: Levi Bravo is a 58 y.o. male with no significant past medical history here on hospital day 2for newly onset left renal artery stenosis, flank pain, and MUSA. Active Problems: Active Hospital Problems Diagnosis ??? Elevated serum creatinine ??? Flank pain ??? Renal artery stenosis Resolved Hospital Problems No resolved problems to display. 24 hr events/Subjective: Mr. Bravo expressed rustration about the frequent changes in plans and wants a group meeting to discuss the risks and benefits of this procedure and to hear the opinions from everyone involved in hiscare. He is not certain that he wants to the procedure. He had 3 loose BMs yesterday, which was uncomfortable. He also noticed some blood stain on the backside of his gown this morning, likely minor bleed from the hemorrhoids. He was mildly febrile for part of yesterday and color television console monitor today; the fever was responsive to acetaminophen. His systolic BP has been <150 yesterday, hence he received no PRNs for BP management. He reported that his left flank is continuing to improve. No chest pain, no SOB, no abdominal pain. Physical Exam: Last value Range last 24 hrs Temperature Temp: (!) 38.9 ??C (102 ??F)(MD aware) Temp: [37.2 ??C (99 ??F)-38.9 ??C (102 ??F)] Heart Rate Heart Rate: 64 Heart Rate: [56-66] Blood Pressure BP: 131/77 BP: (121-150)/(77-89) Respiratory Rate Resp: 22 Resp: [16-22] SpO2 SpO2: 100 % SpO2: [93 %-100 %] Intake/Output Summary (Last 24 hours) at 11/30/2018 0646 Last data filed at 11/30/2018 0548 Gross per 24 hour Intake 735 ml Output 1700 ml Net -965 ml cumulative I/O's since admission: Patient Vitals for the past 168 hrs: Weight 11/29/18 0944 67.7 kg (149 lb 3.2 oz) 11/28/18 043 66.3 kg (146 lb 1.6 oz) 11/26/182056 62.6 kg (138 lb) Admit wt: 62.6kg (note: this was a reported weight) Gen: pleasant male in NAD HEENT: MMM CV:RRR, s1/s2 of nl character and amplitude, no m/r/g, JVP <5cm Resp: CTAB Abd: nondistended, soft, nabs throughout. Mild tenderness to palpation in the left flank region. Ext: WWP, ++ dp/pt pulses, no pitting edema bilaterally in lower extremities. Neuro: alert and responsive. Without focal deficit Labs CBC: Recent Labs 11/30/18 04511/29/18 0456 11/28/18 0508 WBC 10.9* 11.6* 11.4* HGB 11.4* 12.4* 12.1* HCT 33.0* 36.2* 35.1* PLATELET 104* 107* 108* BMP: Recent Labs 11/30/18 0456 11/29/18 0456 11/28/18 1137 11/28/18 0508 NA 138 137 -- 137 K 3.7 3.8 4.0 3.0* CL 104 102 -- 99 CO2 24 24 -- 26 BUN 14 12 -- 10 CREATININE 1.36 1.49 -- 1.46 Recent Labs 11/30/18 0456 11/29/18 0456 11/28/18 0508 CALCIUM 7.9* 7.8* 8.3* MAGNESIUM 0.84 0.88 0.74 PHOS 1.9* 2.0* 2.5 LFTs Recent Labs 11/26/18 2350 AST 34 ALT 22 ALKPHOS 52 BILITOT 0.6 BILIDIR 0.2 Coagulation: Recent Labs 11/26/18 2350 INR 1.1 PT 12.6* PTT 23* Cardiac: Recent Labs 11/27/18 2148 11/27/18 1140 11/27/18 0420 CK -- 239* 333* TROPONINT <0.01 <0.01 <0.01 CRP pending Sed rate 24 (H) C3, C4 normal LDH 381 (H) Hep A Ab positive DELON negative c-ANCA, p-ANCA still pending Imaging/Studies: Second read CT from 11/24/18 Subpleural parenchymal opacity in the right lower lobe on axial images is elongate and branching onsagittal reconstruction, likely an area of parenchymal scarring or organizing-type inflammatory/infectious change. Noncontrast chest CT follow-up in 6 weeks to 3 months is suggested to assess resolution/improvement versus persistence. Meds: ??? potassium, sodium phosphates 3 g Oral Once ??? simethicone 40 mg Oral 4 Times Daily ??? senna-docusate 2 tablet Oral BID ??? sodium chloride 0.9 % 5 mL Intravenous BID ??? amLODIPine 5 mg Oral Daily ??? hydrocortisone 1 each Topical (Top) BID ??? lactated Ringers 75 mL/hr (11/30/18 0544) ??? heparin (porcine) 1,400 Units/hr (11/30/18 0556) Assessment: 58 y.o. male no significant past medical history presented with left flank pain, and was found to have non-oliguric acute kidney injury, left renal stenosis, and secondary hypertension. He is hemodynamically stable, with much improved pain and BP control with systolic consistently <150. Currently, he wants to have more discussion about the risks and benefits of the angioplasty thatwas proposed to them, with everyone on his care team in the same room, so that he could make a moreinformed decision regarding the next steps. ?? Yesterday, Vascular surgery commented that risk/benefit ratio in Mr. Bravo's case probably falls infavor of an elective attempt to cross and recanalize although scientific evidence indicates that most renal function is lost after the first hour of warm ischemia time. Given the recent change, we will work on getting everyone in the same room to talk to Mr. Bravo about the options and benefits/risks today. The acute elevation (presumed) of creatinine and current stabilization/normalizezation suggests that this was an acute process, likely embolic/thrombolic. The etiology for his arterial hypercoagulable state is still unclear, we are working up an autoimmune panel for vasculitis (c-ANCA, p-ANCA stillpending), but we have not ruled out neoplasm especially in the context of elevated LDH and low platelets (though more likely due to renal necrosis). Plan: # Left renal artery stenosis # Left flank pain Diagnostics: - f/u autoimmune panel: c-ANCA, p-ANCA Meds: -??amlodipine 5mg po qd - hydralazine IV prn - heparin gtt, will switch to oral prior to discharge - continue replenishing K (goal 3.5) and phos ?? # fever of unknown origin The pain is most likely due to systemic inflammatory response to the upper pole renal necrosis. If this does not improved in 3-5 days, we will consider a more thorough infection work up. - continue acetaminophen prn - f/u blood culture x2 # thrombocytopenia - continue following. # hemorrhoids Minor bleed this morning, not acutely concerning - will continue monitoring - stopped pericolace and miralax to decrease BM frequency. ?? # compressed atelectasis Improved on physical exam today. - continue intensive spirometer use. # Pulmonary hypertension Estimated PASP was found to be high with normal RV function and no symptoms. May indicate some pulmonary vascular pathology. No acute concerns at this point. # Misc - DVT ppx: heparin gtt - GI ppx: simethicone, stopped miralax and Pericolace - Diet: NPO right now. - Access: PIV - Dispo: pending course - code status: Full Code Mouna Stevens, MS3 [facility] Green Team Pager [phone] 11/30/18 * Plan of Care - Coral Corbin RN - 11/30/2018 4:52 AM EDT Problem: Patient Care Overview Goal: Plan of Care Review Outcome: Ongoing (Interventions Implemented as Appropriate) 11/29/18202611/30/18 0440 Plan of Care Review Progress -- progress toward functional goals is gradual Coping/Psychosocial Plan Of Care Reviewed With patient -- OUTCOME EVALUATION NOTE: OUTCOME SUMMARY: Pt is alert and oriented x4. BP and HR WNL on RA. Pt continued to have fevers overnight, tmax 38.9,MD aware. Tylenol given x2. Voided x3 with one BM. Ambulated in [place]. Slept most of night. UFH drawn this am (0.17). IV heparin bolus given and rate changed to 1400units/hr. LR started at 75ml/hr. Ptto be NPO for possible renal arteriogram if OR available. PLAN MOVING FORWARD: Monitor labs Monitor for signs of bleeding I & O 's NPO Renal arteriogram? INDIVIDUALIZED FALL PREVENTION INTERVENTIONS: Patient-specific fall risk factors per assessment: [current deficits]: Continuous gtt Assistance [level of assistance required for transfers and ambulation]: Independent Supervision [direct monitoring required during toileting and ADLs]: Independent Surveillance [continuous indirect monitoring]: Room near nurses station, call cervantes within reach, close observation Patient-specific fall prevention interventions for sensory deficits provided, if applicable: [X] Yes * Plan of Care - Coral Corbin RN - 11/30/2018 4:40 AM EDT Problem: Patient Care Overview Goal: Fall Prevention-Safe Patient Handling 11/29/18202611/30/18 0200 Lockhart Fall Risk History of Falling 0 -- Secondary Diagnosis 15 -- Ambulatory Aids 0 -- Intravenous Therapy/Heparin/Saline Lock 20 -- Gait/Transferring 0 -- Mental Status 0 -- Score 35 -- OTHER Lockhart Fall Risk Med -- Restraint Interventions Safety Promotion/Fall Prevention -- fall prevention program maintained Positioning Body Position -- independent Activity Activity Type -- activity adjusted per tolerance Activity Assistance Provided -- independent Assistive Device Utilized -- none * Plan of Care - Yen Hernandez RN - 11/29/2018 3:12 PM EDT Problem: Patient Care Overview Goal: Plan of Care Review Outcome: Ongoing (Interventions Implemented as Appropriate) 11/29/18 0334 11/29/18 0944 Plan of Care Review Progress progress towards functional goals is fair -- Coping/Psychosocial Plan Of Care Reviewed With -- patient OUTCOME EVALUATION NOTE: OUTCOME SUMMARY: Pt was calm and cooperative throughout shift. VSS. A&O X4. Fluids d/c'd. Diet advanced to regular. Heparin remained @ 1250 units/ hr, UFH recheck w/ AM labs. Will continue to monitor. PLAN MOVING FORWARD: Monitor labs Monitor for bleeding INDIVIDUALIZED FALL PREVENTION INTERVENTIONS: Patient-specific fall risk factors per assessment: [current deficits]: Masimo, IV sites Assistance [level of assistance required for transfers and ambulation]: IND Supervision [direct monitoring required during toileting and ADLs]: IND Surveillance [continuous indirect monitoring]: Purposeful rounding, cornel, room near nurses station, @ bedside Patient-specific fall prevention interventions for sensory deficits provided, if applicable: [X] Yes CPG GOAL OUTCOME EVALUATION: Goal: Fall Prevention-Safe Patient Handling Outcome: Ongoing (Interventions Implemented as Appropriate) 11/28/18211611/29/1894311/29/18 1109 Lockhart Fall Risk History of Falling -- 0 -- Secondary Diagnosis -- 15 -- Ambulatory Aids -- 0 -- Intravenous Therapy/Heparin/Saline Lock -- 20 -- Gait/Transferring -- 0 -- Mental Status -- 0 -- Score -- 35 -- OTHER Lockhart Fall Risk -- Med -- Restraint Interventions Safety Promotion/Fall Prevention -- -- fall prevention program maintained Positioning Body Position -- -- independent Activity Activity Type up ad akira;ambulated in room -- -- Activity Assistance Provided independent -- -- Assistive Device Utilized none -- -- Goal: Infection Control Outcome: Ongoing (Interventions Implemented as Appropriate) 11/29/1894311/29/18 1109 Safety Interventions Isolation Precautions -- standard precautions maintained Infection Prevention -- single patient room provided Coping Strategies Supportive Measures active listening utilized;decision-making supported;positive reinforcement provided;self-care encouraged;verbalization of feelings encouraged -- Goal: Discharge Needs Assessment Outcome: Ongoing (Interventions Implemented as Appropriate) 11/27/18 1510 Discharge Needs Assessment Concerns To Be Addressed no discharge needs identified Readmission Within The Last 30 Days no previous admission in last 30 days Equipment Needed After Discharge none Discharge Disposition home or self-care Current Health Anticipated Changes Related to Illness none Activity/Self Care Review of Systems Equipment Currently Used at Home none Living Environment Transportation Available family or friend will provide Goal: Interdisciplinary Rounds/Family Conf Outcome: Ongoing (Interventions Implemented as Appropriate) 11/27/18 1510 Interdisciplinary Rounds/Family Conf Participants nursing;family;patient;physician Problem: Anxiety (Adult) Goal: Identify Related Risk Factors and Signs and Symptoms Related risk factors and signs and symptoms are identified upon initiation of Human Response Clinical Practice Guideline (CPG) Outcome: Ongoing (Interventions Implemented as Appropriate) 11/28/18 0311 Anxiety Related Risk Factors (Anxiety) health status change;knowledge deficit;pain;procedure/treatment;prognosis/treatment plan Signs and Symptoms (Anxiety) apprehension/being worried;nervousness/tension/restlessness;sleep disturbance Goal: Reduction/Resolution Patient will demonstrate the desired outcomes by discharge/transition of care. Outcome: Ongoing (Interventions Implemented as Appropriate) 11/28/18 031 Anxiety (Adult) Reduction/Resolution making progress toward outcome * Consult Note - Fritz Sullivan MD - 11/29/2018 7:45 AM EDT [facility] Vascular Surgery Consult Service Progress Note Consultation Requested by: Manuel Martin MD HPI: We are seeing Levi Bravo today at the request of Dr. Manuel Martin MD for evaluation and advice about left renal artery stenosis. Levi Bravo is a 58 year old man with no significant known past medical history who presented [facility] with the chief complaint of left flank pain. He was transferred to [facility] after he was found to have left renal artery stenosis. He reports developing abdominal bloating about four days ago, with associated difficulty breathing.The next day he reports noticing his heart rate was low, and his difficulty breathing seemed worse.He presented to his [facility] ED where he was found to have pneumonia and MUSA. He was given IV fluid anddischarged on steroids and antibiotics. 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 That evening he noticed a 12 lb weight gain and leg swelling. He also at that time noticed a dull left flank pain. He presented yesterday to [facility] due to the weight gain. Yesterday evening around 6 PM he reports the pain became severe, still intermittent. He was transferred to [facility] and reports when he arrived here his left flank pain was still severe and is now constant and unrelenting. Interval Hx/Subjective TTE completed, no evidence of left atrial thrombus or PFO MRI angiogram completed, suggestive of delayed filling of lower pole of kidney Cr 1.49 from 1.8 PHYSICAL EXAM Temp: [37.5 ??C (99.5 ??F)-39.5 ??C (103.1 ??F)] Heart Rate: [58-75] Resp: [16-20] BP: (121-184)/(77-94) SpO2: [93 %-99 %] Heart Rate from SpO2: [57 bpm-77 bpm] Gen: resting in bed CV: regular rate Pulm: clear to auscultation GI: Soft, non distended, mild L CVA tenderness Ext: pulses 2+ Neuro: no focal deficits LABORATORY DATA Recent Labs 11/29/18 0456 11/28/18 1137 11/28/18 0508 11/27/18 1140 11/27/18 0420 11/26/18 2350 WBC 11.6* -- 11.4* -- 7.6 7.9 HGB 12.4* -- 12.1* -- 12.8* 12.3* PLATELET 107* -- 108* -- 109* 119* NA 137 -- 137 139 -- 142 K 3.8 4.0 3.0* 3.4* -- 3.7 CL 102 -- 99 103 -- 104 CO2 24 -- 26 22 -- 24 BUN 12 -- 10 14 -- 21* CREATININE 1.49 -- 1.46 1.51* -- 1.80* MAGNESIUM 0.88 -- 0.74 -- -- -- PHOS 2.0* -- 2.5 -- -- -- GLUCOSE -- -- -- -- -- 114 LFT's No results found for: ALKPHOS, AST, ALBUMIN, BILIDIR, BILITOT, ALT, PROT Coags No results found for: INR, PT, PTT MICRO: Microbiology Results (Last 30 days) No results found for the last 720 hours. IMAGING/Studies: TTE SUMMARY: ?? 1. The left ventricular chamber size is normal. Left ventricular wall thickness is normal. There is normal global left ventricular systolic function. The quantitative left ventricular ejection fraction by biplane Brown's method is 63%. There are no left ventricular segmental wall motion abnormalities. Doppler assessment is consistent with normal left sided filling pressure. 2. The right ventricle is probably normal in size. Right ventricular global systolic function is normal. The estimated pulmonary artery systolic pressure is 43 mmHg. The estimated right atrial pressure is 15 mmHg. The inferior vena cava appears dilated. 3. There is no evidence of a patent foramen ovale by either color Doppler or agitated saline injection. There is normal bi-atrial size. 4. There is no hemodynamically significant valve disease. MRI Angiogram IMPRESSION 1. Critical stenosis of the LEFT renal artery at the origin with downstream infarcts of the superior to third of the LEFT renal cortex. 2. Nonspecific small to moderate ascites. 3. Few scattered foci of T2 prolongation within the RIGHT lobe of liver likely representing hepatic cysts. CT Abdomen & Pelvis FINDINGS: The absence of intravenous contrast limits the evaluation of solid viscera and vasculature. ?? Lower chest: Minimal linear atelectasis. ?? Liver: Normal attenuation, no focal lesion. There is mild periportal edema. Bile ducts: No intra or extrahepatic bile [...] Normal unenhanced appearance of the right kidney. ?? Vasculature: Scattered calcified atherosclerosis of a mildly [...] No loculated fluid collection. No free air. ?? Urinary Bladder: Normal distention. No bladder wall thickening. Reproductive organs: Mild predominantly lower body wall edema. ?? Osseous structures: No suspicious lesions. Mild multilevel degenerative changes of the lower thoracic and lumbar spine most severe at L5-S1. Minimal retrolisthesis of L5 on S1. IMPRESSION 1. Delayed left nephrogram, secondary to renal artery stenosis, given focal severe narrowing at the origin of the left renal artery on recent comparison study. 2. Small to moderate volume low density ascites throughout the abdomen and Pelvis. Duplex Study Renal Arteries, Bilat Findings: ?? Malina Renal Aorta ?PSV (cm/s): 83 ?EDV (cm/s): 11 Renal Artery Ostium, Right ?PSV (cm/s): 100 ?EDV (cm/s): 15 Renal Artery Proximal, Right ?PSV (cm/s): 106 ?EDV (cm/s): 25 ?RAR: 1.3 ?RI: 0.76 Renal Artery Mid, Right ?PSV (cm/s): 87 ?EDV (cm/s): 21 ?RAR: 1.0 ?RI: 0.75 Renal Artery Distal, Right ?PSV (cm/s): 59 ?EDV (cm/s): 15 ?RAR: 0.7 ?RI: 0.74 Mid Pole Renal Parenchyma, Right ?PSV (cm/s): 29 ?EDV (cm/s): 9 ?RI: 0.68 ?AT (ms): 34 Renal Hilum, Right ?AT (ms): 34 Kidney Length, Right ?Length (cm): 10.8 Renal Vein, Right ?Patent: Patent Renal Artery??Proximal, Left ?PSV (cm/s): 0 ?RAR: 0.0 Kidney Length, Left ?Length (cm): 10.3 Renal Vein, Left ?Patent: Patent ? Interpretation: ? Right: Patent main renal artery with no evidence of hemodynamically significant stenosis. ?? Left: There is no identifiable flow by duplex in what is suspected to be the main renal artery; suspect occlusion. No arterial flow identified within the kidney. Patent renal vein. ?? Comparison: ??No previous study in our vascular lab database for comparison. IMPRESSION: Levi Bravo is a 58 y.o. male with no known past medical history who presented with new left flank pain, MUSA, and left renal artery stenosis. Renal artery duplex demonstrated no flow in left renal artery of arterial flow in left kidney. Thusfar workup to identify source of occlusion has been unrevealing. Discussed patient's case at vascular surgery faculty meeting this AM. Critical stenosis of L renal artery noted on CTA from 11/24, however no flow identified on duplex from 11/27. Nonetheless, will offer patient renal arteriogram with possible intervention. Will plan for IR on 12/01, please keep patient NPO @ [place] Wednesday night Recommend continued anticoagulation with hep gtt Yoni Hou MD Vascular Surgery Resident Vascular Attending An embolic source has not been identified, nor has any other intrinsic arterial disorder. Renal function has improved. There's a hint of perfusion at the lower pole. Duplex did not identify arterial flow, but MRI suggests critical stenosis. While I don't think there's a huge chance for major success, and despite science indicating most renal function is lost after the first hour of warm ischemia t molly, I think the risk/benefit ratio in Mr. Bravo's case probably falls in favor of an elective attempt to cross and recanalize. I reviewed risks (eg arterial injury, embolization, ARF, failure to cross lesion, failure to improve renal function even if technically successful) and potential benefits with the patient and his . I answered their questions. He didn't make a decision while we were with him, but we'll hold a spot on should he decide in favor. Fritz Sullivan M.D. Section of Vascular Surgery * Med Student Progress Note - Abby Steevns - 11/29/2018 7:02 AM EDT Inpatient Medicine Progress Note Patient Name: Levi Bravo Date of Admission: 11/26/2018 ( Hospital Day 2 days ) Service: Hospital Medicine - Green team Attending: Manuel Martin ID: Levi Bravo is a 58 y.o. male with no significant past medical history here on hospital day 2for newly onset left renal artery stenosis, flank pain, and MUSA. Active Problems: Active Hospital Problems Diagnosis ??? Elevated serum creatinine ??? Flank pain ??? Renal artery stenosis Resolved Hospital Problems No resolved problems to display. 24 hr events/Subjective: His Katrina came late last night and is at bedside. He was febrile to 39 today and received acetaminophen. His systolic BP has been <160 yesterday, hence he received no PRNs for BP management. He reported that his left flank is improving - he can sleep on his left side that he was not able to do before. We increased his bowel regimen yesterday, and he had a bowel movement around midnight last night, mostly liquid with isolated solid pieces, no straining. He continues to be followed by vascular surgery, who will discuss the case at their morning conference today. As of last night, they saw minimal chance that any attempts at lysis or percutaneous mechanicotherapy would be fruitful after 6/5 days of occlusion Physical Exam: Last value Range last 24 hrs Temperature Temp: (!) 38.4 ??C (101.1 ??F) Temp: [37.5 ??C (99.5 ??F)-39.5 ??C (103.1 ??F)] Heart Rate Heart Rate: 64 Heart Rate: [58-68] Blood Pressure BP: 141/78 BP: (121-157)/(77-90) Respiratory Rate Resp: 18 Resp: [16-18] SpO2 SpO2: 93 % SpO2: [93 %-99 %] Intake/Output Summary (Last 24 hours) at 11/29/2018 1212 Last data filed at 11/29/2018 0734 Gross per 24 hour Intake 1989 ml Output 800 ml Net 1189 ml cumulative I/O's since admission: Patient Vitals for the past 168 hrs: Weight 11/29/18 0944 67.7 kg (149 lb 3.2 oz) 11/28/18 0430 66.3 kg (146 lb 1.6 oz) 11/26/182056 62.6 kg (138 lb) Admit wt: 62.6kg (note: this was a reported weight) Gen: pleasant male in NAD HEENT: MMM CV:RRR, s1/s2 of nl character and amplitude, no m/r/g, JVP <5cm Resp: CTAB Abd: nondistended, soft, NT, nabs throughout Ext: WWP, ++ dp/pt pulses, no pitting edema bilaterally in lower extremities. Slight edema of the hands. Neuro: alert and responsive. Without focal deficit Labs CBC: Recent Labs 11/29/18 0456 11/28/18 0508 11/27/18 0420 WBC 11.6* 11.4* 7.6 HGB 12.4* 12.1* 12.8* HCT 36.2* 35.1* 37.6* PLATELET 107* 108* 109* BMP: Recent Labs 11/29/18 0456 11/28/18 1137 11/28/18 0508 11/27/18 1140 NA 137 -- 137 139 K 3.8 4.0 3.0* 3.4* CL 102 -- 99 103 CO2 24 -- 26 22 BUN 12 -- 10 14 CREATININE 1.49 -- 1.46 1.51* Recent Labs 11/29/18 0456 11/28/18 0508 11/27/18 1140 CALCIUM 7.8* 8.3* 8.5 MAGNESIUM 0.88 0.74 -- PHOS 2.0* 2.5 -- LFTs Recent Labs 11/26/18 2350 AST 34 ALT 22 ALKPHOS 52 BILITOT 0.6 BILIDIR 0.2 Coagulation: Recent Labs 11/26/18 2350 INR 1.1 PT 12.6* PTT 23* Cardiac: Recent Labs 11/27/18 2148 11/27/18 1140 11/27/18 0420 CK -- 239* 333* TROPONINT <0.01 <0.01 <0.01 CRP pending Sed rate 24 (H) C3, C4 normal LDH 381 (H) Hep A Ab positive DELON pending Imaging/Studies: TTE 11/28/18 SUMMARY: 1. The left ventricular chamber size is normal. Left ventricular wall thickness is normal. There is normal global left ventricular systolic function. The quantitative left ventricular ejection fraction by biplane Brown's method is 63%. There are no left ventricular segmental wall motion abnormalities. Doppler assessment is consistent with normal left sided filling pressure. 2. The right ventricle is probably normal in size. Right ventricular global systolic function is normal. The estimated pulmonary artery systolic pressure is 43 mmHg. The estimated right atrial pressure is 15 mmHg. The inferior vena cava appears dilated. 3. There is no evidence of a patent foramen ovale by either color Doppler or agitated saline injection. There is normal bi-atrial size. 4. There is no hemodynamically significant valve disease. ?? MRI abdomen 11/28/18 IMPRESSION 1. Critical stenosis of the LEFT renal artery at the origin with downstream infarcts of the superior to third of the LEFT renal cortex. 2. Nonspecific small to moderate ascites. 3. Few scattered foci of T2 prolongation within the RIGHT lobe of liver likely representing hepaticcysts. CXR 11/28/18 Small left pleural effusion with associated left lower lobe opacities favored to represent compressive atelectasis. Meds: ??? simethicone 40 mg Oral 4 Times Daily ??? senna-docusate 2 tablet Oral BID ??? sodium chloride 0.9 % 5 mL Intravenous BID ??? amLODIPine 5 mg Oral Daily ??? hydrocortisone 1 each Topical (Top) BID ??? heparin (porcine) 1,250 Units/hr (11/29/18 8438) ??? sodium chloride 0.9% 100 mL/hr (11/29/18 1175) Assessment: 58 y.o. male no significant past medical history presented with left flank pain, and was found to have non-oliguric acute kidney injury, left renal stenosis, and secondary hypertension. He is currently hemodynamically stable, with much improved pain and BP control with systolic consistently <160. ?? The acute elevation (presumed) of creatinine and current stabilization/normalizezation suggests that this was an acute process, likely embolic/thrombolic. The etiology for his arterial hypercoagulable state is still unclear, we are working up an autoimmune panel for vasculitis, but we have not ruled out neoplasm especially in the context of elevated LDH and low platelets (though more likely due to renal necrosis). Vascular surgery and IR did not recommend intervention this morning given the extent of renal damage. We will touch base with vascular surgery for the choice and duration of anticipated anticoagulation, likely 3-6 month.. Plan: # Left renal artery stenosis # Left flank pain Diagnostics: - f/u autoimmune panel: DELON, c-ANCA, p-ANCA, and Sed rate levels Meds: -??amlodipine 5mg po qd - hydralazine IV prn - heparin gtt, will switch to oral - continue replenishing K (goal 3.5) ?? # fever of unknown origin The pain is most likely due to systemic inflammatory response to the upper pole renal necrosis. If this does not improved in 3-5 days, we will consider a more thorough infection work up. - continue acetaminophen prn - f/u blood culture x2 # thrombocytopenia - continue following. ?? # compressed atelectasis Likely due to immobility and poor respiratory effort due to pain. - encourage intensive spirometer use. # Pulmonary hypertension Estimated PASP was found to be high with normal RV function and no symptoms. May indicate some pulmonary vascular pathology. No acute concerns at this point. # Misc - DVT ppx: heparin gtt - GI ppx: Pericolace, simethicone, miralax - Diet: regular diet (stop NS infusion once patient is back on oral intake.) - Access: PIV - Dispo: pending course - code status: Full Code Mouna Stevens, MS3 [facility] Medicine Green Team Pager [phone] 11/29/18 * Plan of Care - Coral Corbin RN - 11/29/2018 3:41 AM EDT Problem: Patient Care Overview Goal: Plan of Care Review Outcome: Ongoing (Interventions Implemented as Appropriate) 11/29/18 0334 Plan of Care Review Progress progress towards functional goals is fair Coping/Psychosocial Plan Of Care Reviewed With patient;spouse OUTCOME EVALUATION NOTE: OUTCOME SUMMARY: Pt was alert and oriented x4, remains anxious about his plan of care. BP and HR WNL on RA. Oral temp max 39.5, tylenol given x2, temp resolved to 37.5, MD aware. Blood cultures obtained x1. Chest xray performed. NPO after midnight. Pt's arrived at 0130 to spend night. All questions answered. PLAN MOVING FORWARD: Monitor UFH Monitor VS Pain management Possible IR intervention? INDIVIDUALIZED FALL PREVENTION INTERVENTIONS: Patient-specific fall risk factors per assessment: [current deficits]: Continuous IVF Assistance [level of assistance required for transfers and ambulation]: Independent Supervision [direct monitoring required during toileting and ADLs]: Independent Surveillance [continuous indirect monitoring]: Room near nurses station, close observation, call cervantes within reach Patient-specific fall prevention interventions for sensory deficits provided, if applicable: [X] No * Plan of Care - Coral Corbin RN - 11/29/2018 3:32 AM EDT Problem: Patient Care Overview Goal: Infection Control 11/28/18201811/28/182045 Safety Interventions Isolation Precautions -- standard precautions maintained Infection Prevention -- environmental surveillance performed;single patient room provided Coping Strategies Supportive Measures active listening utilized;positive reinforcement provided;relaxation techniquespromoted -- * Plan of Care - Yen Hernandez RN - 11/28/2018 3:18 PM EDT Problem: Patient Care Overview Goal: Plan of Care Review Outcome: Ongoing (Interventions Implemented as Appropriate) 11/28/18 0649 11/28/18 0830 Plan of Care Review Progress progress towards functional goals is fair -- Coping/Psychosocial Plan Of Care Reviewed With -- patient OUTCOME EVALUATION NOTE: OUTCOME SUMMARY: Pt was calm and cooperative throughout shift. VSS. A&O X4. UA sent. Pt received 2 g Mg IV, 40 mEq K+ IV, 40 mEq K+ PO, see MAR. NS increased to 100 mL/hr. New PIV placed (L 22). MRI of abd. Senna& simethicone ordered and given, see MAR. NPO (meds). Pt had TTE @ bedside. Heparin increased from 1100 to 1250 units/ hr, UFH recheck at 2300. Daily wts ordered. Will continue to monitor. PLAN MOVING FORWARD: Monitor labs IV fluids INDIVIDUALIZED FALL PREVENTION INTERVENTIONS: Patient-specific fall risk factors per assessment: [current deficits]: Masimo, IV tubing Assistance [level of assistance required for transfers and ambulation]: IND Supervision [direct monitoring required during toileting and ADLs]: IND Surveillance [continuous indirect monitoring]: Purposeful roundingCornel pt rings appropriately,room near nurses station Patient-specific fall prevention interventions for sensory deficits provided, if applicable: [X] Yes CPG GOAL OUTCOME EVALUATION: Goal: Fall Prevention-Safe Patient Handling Outcome: Ongoing (Interventions Implemented as Appropriate) 11/27/18213111/28/18 0830 11/28/18 1346 Lockhart Fall Risk History of Falling -- 0 -- Secondary Diagnosis -- 15 -- Ambulatory Aids -- 0 -- Intravenous Therapy/Heparin/Saline Lock -- 20 -- Gait/Transferring -- 0 -- Mental Status -- 0 -- Score -- 35 -- OTHER Lockhart Fall Risk -- Med -- Restraint Interventions Safety Promotion/Fall Prevention -- -- fall prevention program maintained;muscle strengthening facilitated;nonskid shoes/slippers when out of bed;safety round/check completed Positioning Body Position -- -- independent Activity Activity Type -- -- activity adjusted per tolerance;activity encouraged Activity Assistance Provided -- -- -- Assistive Device Utilized none -- -- 11/28/18 1500 Lockhart Fall Risk History of Falling -- Secondary Diagnosis -- Ambulatory Aids -- Intravenous Therapy/Heparin/Saline Lock -- Gait/Transferring -- Mental Status -- Score -- OTHER Lockhart Fall Risk -- Restraint Interventions Safety Promotion/Fall Prevention -- Positioning Body Position -- Activity Activity Type -- Activity Assistance Provided independent Assistive Device Utilized -- Goal: Infection Control Outcome: Ongoing (Interventions Implemented as Appropriate) 11/28/18 0811/28/18 0830 11/28/18 0928 Safety Interventions Isolation Precautions standard precautions maintained -- -- Infection Prevention -- -- environmental surveillance performed;personal protective equipment utilized;rest/sleep promoted;single patient room provided Coping Strategies Supportive Measures -- self-care encouraged -- Goal: Discharge Needs Assessment Outcome: Ongoing (Interventions Implemented as Appropriate) 11/27/18 1510 Discharge Needs Assessment Concerns To Be Addressed no discharge needs identified Readmission Within The Last 30 Days no previous admission in last 30 days Equipment Needed After Discharge none Discharge Disposition home or self-care Current Health Anticipated Changes Related to Illness none Activity/Self Care Review of Systems Equipment Currently Used at Home none Living Environment Transportation Available family or friend will provide Goal: Interdisciplinary Rounds/Family Conf Outcome: Ongoing (Interventions Implemented as Appropriate) 11/27/18 1510 Interdisciplinary Rounds/Family Conf Participants nursing;family;patient;physician Problem: Anxiety (Adult) Goal: Identify Related Risk Factors and Signs and Symptoms Related risk factors and signs and symptoms are identified upon initiation of Human Response Clinical Practice Guideline (CPG) Outcome: Ongoing (Interventions Implemented as Appropriate) 11/28/18310 Anxiety Related Risk Factors (Anxiety) health status change;knowledge deficit;pain;procedure/treatment;prognosis/treatment plan Signs and Symptoms (Anxiety) apprehension/being worried;nervousness/tension/restlessness;sleep disturbance Goal: Reduction/Resolution Patient will demonstrate the desired outcomes by discharge/transition of care. Outcome: Ongoing (Interventions Implemented as Appropriate) 11/28/18310 Anxiety (Adult) Reduction/Resolution making progress toward outcome * Med Student Progress Note - Abby Stevens - 11/28/2018 2:46 PM EDT Inpatient Medicine Progress Note Patient Name: Levi Bravo Date of Admission: 11/26/2018 ( Hospital Day 1 day ) Service: Hospital Medicine - [place] team Attending: Manuel Martin ID: Levi Bravo is a 58 y.o. male with no significant past medical history here on hospital day 2for newly onset left renal artery stenosis, flank pain, and MUSA. Active Problems: Active Hospital Problems Diagnosis ??? Elevated serum creatinine ??? Flank pain ??? Renal artery stenosis Resolved Hospital Problems No resolved problems to display. 24 hr events/Subjective: I saw the patient together with the team. He has been febrile up to 38.7 this morning. He mentionedthat the pain is better controlled now on acetaminophen and dilaudid. Changes from yesterday: - started amlodipine 5mg qd and hydralazine 10mg q4h PRN if systolic BP>180 His systolic BP remained in the 140-160 range for most of the day, hence did not require any hydralazine PRN. Physical Exam: Last value Range last 24 hrs Temperature Temp: (!) 38.1 ??C (100.5 ??F) Temp: [37.3 ??C (99.1 ??F)-38.8 ??C (101.9 ??F)] Heart Rate Heart Rate: 68 Heart Rate: [57-75] Blood Pressure BP: 145/83 BP: (143-184)/(64-95) Respiratory Rate Resp: 18 Resp: [18-20] SpO2 SpO2: 97 % SpO2: [93 %-97 %] Intake/Output Summary (Last 24 hours) at 11/28/2018 1516 Last data filed at 11/28/2018 1330 Gross per 24 hour Intake 1762 ml Output 650 ml Net 1112 ml cumulative I/O's since admission: Patient Vitals for the past 168 hrs: Weight 11/28/18 0430 66.3 kg (146 lb 1.6 oz) 11/26/182056 62.6 kg (138 lb) Admit wt: 62.6kg Gen: pleasant male in NAD HEENT: MMM CV:RRR, s1/s2 of nl character and amplitude, no m/r/g, JVP <5cm Resp: CTAB Abd: nondistended, soft, NT, nabs throughout Ext: WWP, ++ dp/pt pulses, 1+ pitting edema bilaterally in lower extremities Neuro: alert and responsive. Without focal deficit Labs: Recent Results (from the past 24 hour(s)) Troponin Result Value Ref Range Troponin-T <0.01 0.00 - 0.00 ng/mL Heparin (unfractionated) Level Result Value Ref Range Heparin UFH Level 0.25 IU/mL BMP w/fasting Glucose Result Value Ref Range Glucose Fasting 115 (H) 65 - 99 mg/dL BUN 10 10 - 20 mg/dL Creatinine 1.46 0.80 - 1.50 mg/dL Sodium 137 135 - 145 mmol/L Potassium 3.0 (CRIT) 3.5 - 5.0 mmol/L Chloride 99 98 - 107 mmol/L CO2 26 22 - 31 mmol/L Anion Gap 12 5 - 15 mmol/L Calcium 8.3 (L) 8.5 - 10.5 mg/dL eGFR 52 (L) >=60 mL/min/1.73 m?? eGFR 61 >=60 mL/min/1.73 m?? Magnesium Result Value Ref Range Magnesium 0.74 0.69 - 1.07 mmol/L Phosphorus Result Value Ref Range Phosphorus 2.5 2.5 - 4.5 mg/dL Hemogram Result Value Ref Range WBC 11.4 (H) 4.0 - 9.5 x10(3)/mcL RBC 3.84 (L) 4.58 - 5.54 x10(6)/mcL Hemoglobin 12.1 (L) 13.7 - 16.5 gm/dL Hematocrit 35.1 (L) 40.5 - 48.5 % MCV 91.4 82.9 - 93.1 fL MCH 31.5 27.5 - 32.1 pg MCHC 34.5 32.0 - 35.7 gm/dL Platelets 108 (L) 145 - 357 x10(3)/mcL RDWSD 40.0 36.0 - 45.0 fL RDWCV 12.0 11.4 - 13.8 % MPV 12.6 7.6 - 12.9 fL nRBC % Auto 0.0 % nRBC Abs Auto 0.000 0.000 - 0.000 x10(3)/mcL Differential, Automated Result Value Ref Range Neutrophils % 80.1 % Neutr Abs (ANC) 9.14 (H) 1.70 - 6.10 x10(3)/mcL Lymphocytes % 5.9 % Lymphocytes Abs 0.7 (L) 0.9 - 3.2 x10(3)/mcL Monocytes % 12.8 % Monocyte Abs 1.5 (H) 0.3 - 0.9 x10(3)/mcL Eosinophils % 0.0 % Eosinophils Abs 0.0 0.0 - 0.4 x10(3)/mcL Basophils % 0.3 % Basophils Abs 0.0 0.0 - 0.1 x10(3)/mcL Immature Gran % 0.90 % [place] Gran Abs 0.10 (H) 0.00 - 0.04 x10(3)/mcL Heparin (unfractionated) Level Result Value Ref Range Heparin UFH Level 0.41 IU/mL Lactate Dehydrogenase Result Value Ref Range LDH 581 (H) 110 - 220 unit/L C3 Complement Result Value Ref Range C3 Complement 109 90 - 180 mg/dL C4 Complement Result Value Ref Range C4 Complement 35 10 - 40 mg/dL Hepatitis A Antibody, Total Result Value Ref Range Hepatitis A Ab Positive (A) Negative Hepatitis B Core Antibody, IgM Result Value Ref Range Hep B Core IgM Negative Negative Hepatitis B Core Antibody, Total Result Value Ref Range Hep B Core Ab Negative Negative Hepatitis B Surface Antibody Result Value Ref Range HepB Surface Ab Quant <3.5 IU/L HepB Surface Ab Negative Hepatitis B Surface Antigen Result Value Ref Range HepB Surface Ag Negative Negative Hepatitis C Antibody Result Value Ref Range Hepatitis C Ab Negative Negative Urinalysis with reflex Culture Result Value Ref Range Glucose UA Negative Negative mg/dL Protein UA 100 (A) Negative mg/dL Bilirubin UA Negative Negative mg/dL Urobilinogen UA Normal Normal mg/dL pH UA 6.0 5.0 - 8.0 Blood UA Large (A) Negative mg/dL Ketones UA 5 (A) Negative mg/dL Nitrite UA Negative Negative Leukocytes UA Negative Negative mcL Appearance UA Clear Clear Spec Prince UA 1.020 1.002 - 1.030 Color UA Yellow Yellow Culture Reflexed No Urinalysis Microscopic Exam Result Value Ref Range RBC UA 2 0 - 3 /HPF WBC UA 1 0 - 3 /HPF Bacteria UA Rare (A) None /HPF Potassium Result Value Ref Range Potassium 4.0 3.5 - 5.0 mmol/L ABO/Rh Typing Result Value Ref Range ABORh Type O Pos Antibody screen Result Value Ref Range Ab Screen Interp Negative Expires at 2359 on: 12/01/2018 ABORH Recheck Status Result Value Ref Range ABORH Recheck Order Order Placed ABORH Type Recheck Complete Heparin (unfractionated) Level Result Value Ref Range Heparin UFH Level 0.29 IU/mL Imaging/Studies: TTE 11/28/18 SUMMARY: 1. The left ventricular chamber size is normal. Left ventricular wall thickness is normal. There is normal global left ventricular systolic function. The quantitative left ventricular ejection fraction by biplane Brown's method is 63%. There are no left ventricular segmental wall motion abnormalities. Doppler assessment is consistent with normal left sided filling pressure. 2. The right ventricle is probably normal in size. Right ventricular global systolic function is normal. The estimated pulmonary artery systolic pressure is 43 mmHg. The estimated right atrial pressure is 15 mmHg. The inferior vena cava appears dilated. 3. There is no evidence of a patent foramen ovale by either color Doppler or agitated saline injection. There is normal bi-atrial size. 4. There is no hemodynamically significant valve disease. 5. See report above for remainder of findings. Meds: ??? simethicone 40 mg Oral 4 Times Daily ??? sodium chloride 0.9 % 5 mL Intravenous BID ??? amLODIPine 5 mg Oral Daily ??? hydrocortisone 1 each Topical (Top) BID ??? heparin (porcine) 1,100 Units/hr (11/28/18 1448) ??? sodium chloride 0.9% 100 mL/hr (11/28/18 1321) Assessment: 58 y.o. male with no significant past medical history presented with left flank pain, and was found to have non-oliguric acute kidney injury, left renal stenosis, and secondary hypertension. He is currently hemodynamically stable, with much improved pain and BP control with systolic consistently <160. CT showed some flow to his left kidney while duplex did not show flow. Nephrology consult suggestedMRI of the kidney to look at renal perfusion to assess the need for further intervention. We will touch base with nephrology and vascular surgery after the MRI today. U/A today showed large blood, protein, and ketone, but no casts, concerning for glomerular damage, may be due to hypoperfusion. The DDX for his unilateral renal stenosis include atherosclerosis, an embolic event, and vasculitis. He does not have many risk factors for atherosclerosis (no DM, LDL = 99, total chol = 139). We don't yet have a clear source of an embolic event. He does not have any recollection of ever experiencing hemoptysis, but this could be a newly developed disease process. The steroids he got for his recent pneumonia might have masked the vasculitis symptoms temporarily. We will continue to follow the autoimmune panel (serum C3, C4 normal). The TTE with bubble study today ruled out PFO but found that he has elevated PA systolic and RA pressure (45 and 15) concerning for pulmonary hypertension and chronic embolic/thrombolic event vs. pulm vascular diseases may or may not be related to his renal pathology. Plan: # Left renal artery stenosis # Left flank pain Diagnostics: - MRI kidney with perfusion; touch base with nephrology and vascular surgery afterwards - f/u autoimmune panel: DELON, c-ANCA, p-ANCA, CRP and Sed rate levels Meds: - amlodipine 5mg po qd - hydralazine IV prn - heparin gtt - NS infusion 75ml/hr -> 100ml/hr to keep up with hydration while NPO - continue replenishing K (goal 3.5) - recommend HepB vaccination post discharge given his renal pathology. # fever of unknown origin - f/u blood culture x2 # thrombocytopenia - continue trending # Misc - DVT ppx: heparin gtt - GI ppx: - Diet: NPO pending vascular recommendations - Access: PIV - Dispo: pending course - code status: Full Code Mouna Stevens, MS3 [facility] Medicine Green Team Pager [phone] 11/28/18 * Consult Note - Hayley Vazquez MD - 11/28/2018 9:44 AM EDT HYPERTENSION/ NEPHROLOGY CONSULT PATIENT: Levi Bravo : 1960 REASON FOR CONSULTATION:Non oliguric MUSA,suspected L renal artetry stenosis with HTN to assist in management ID: Levi Bravo is a 58 years old male with no known past medical history in the past transferred from [facility] for recently found left renal artery stenosis associated with flank pain for whom we are consulted for assist in management of Non oliguric MUSA, possible DON and HTN. S: Have low grade fevers this morning and maintaining good UOP,creatinine mildly down trended . PHYSICAL EXAM: Intake/Output Summary (Last 24 hours) at 11/28/2018 1509 Last data filed at 11/28/2018 1330 Gross per 24 hour Intake 1762 ml Output 650 ml Net 1112 ml Last value Range last 24 hrs Temperature Temp: (!) 38.8 ??C (101.9 ??F) Temp: [37.3 ??C (99.1 ??F)-38.8 ??C (101.9 ??F)] Heart Rate Heart Rate: 75 Heart Rate: [57-75] Blood Pressure BP: 143/86 BP: (143-156)/(64-95) Respiratory Rate Resp: 20 Resp: [18-22] SpO2 SpO2: 94 % SpO2: [93 %-97 %] Appearance - Alert, Comfortable. Skin - No exanthem. HEENT - Sclera white. Mucous membranes moist. Chest: Lungs clear to ausculatation w/o wheezes/ rhonchi/ crackles. Heart - S1 and S2 clear w/o murmur, gallop, or rub. JVP not elevated. Abd - Soft. + BS. No bruit. Non tender,mild CVA tenderness on left flank. Ext - Warm. No cyanosis. Trace dependent edema. Neuro - No focal deficits on exam STUDIES: Labs: CBC: Recent Labs 11/28/18 0508 11/27/18 0420 11/26/18 2350 WBC 11.4* 7.6 7.9 HGB 12.1* 12.8* 12.3* PLATELET 108* 109* 119* Chemistry: Recent Labs 11/28/18 0508 11/27/18 1140 11/26/18 2350 NA 137 139 142 K 3.0* 3.4* 3.7 CL 99 103 104 CO2 26 22 24 BUN 10 14 21* CREATININE 1.46 1.51* 1.80* GLUCOSE -- -- 114 Recent Labs 11/28/18 0508 11/27/18 1140 11/26/18 2350 CALCIUM 8.3* 8.5 8.7 MAGNESIUM 0.74 -- -- PHOS 2.5 -- -- LFT's: Recent Labs 11/26/18 2350 BILITOT 0.6 BILIDIR 0.2 ALBUMIN 3.9 ALKPHOS 52 ALT 22 AST 34 RENAL DUPLEX:11/27/18: Right: Patent main renal artery with no evidence of hemodynamically significant stenosis. Left: There is no identifiable flow by duplex in what is suspected to be the main renal artery; suspect occlusion. No arterial flow identified within the kidney. Patent renal vein. IMPRESSION/ RECOMMENDATIONS: Levi Bravo is a 58 y/o with no known PMH is now with newly found L renal artery stenosis and elevated BP concerning for renovascular HTN,Non oliguric MUSA possibly from possible ischemic nephropathy secondary to L renal artery occlusion/stenosis.Not on chronic NSAIDs to contribute for MUSA 1,Non oliguric MUSA: -Mostly from ischemic injury from renal artery occlusion/stenosis.Possibly contributed by recent bradycardia leading to hemodynamic MUSA.Urine lytes consistent with intrinsic renal injury(U sodium of 111,FeNa>3).Urine microscopy showed bland sediment-no casts/dysmorphic RBCs suggesting glomerularpathology.UA also showed no protein and very trace heme not suggesting any glomerular pathology.Having good urine out put and clinically eu volemic. Plan: - Creatinine is stabilizing ,maintaining good UOP - Developing pain and fevers likely due to ongoing ischemia for the kidney - Awaiting Echo ,need tele for evaluation for Afib for embolic source ,hypercoaguable work up and vasculitis work up is pending. - Avoid nephrotoxins,NSAIDs,contrast .Strict I and Os ,daily weights,renal dosing for medications 2,Unilateral L renal artery stenosis/occlusion: - Renal duplex showed no identifiable flow by duplex in L main Renal artery will continue with heparin for now .Images reviewed with radiologist ,seems he does not have significant atherosclerosis likely obstruction is acute ?embolic source vs vasculitis vs hypercoagable .We also arranged for stat MRI to evaluate perfusion of the kidney so that we can do CTA and stent if still perfusing to prevent further injury. - Awaiting ECHO,vasculitis ,hypercoagable work up,complement levels and urine protein creatinine ratio. - will continue with amlodipine and hydralazine as needed to help in Bp management ,incase if we can not perfuse that kidney then ACEI is of help to control pressures. Thanks for letting us participate in the care of this patient. Seen and Discussed w/ Dr.Remillard Taylor Hardy MD Nephrology Fellow #[id number] * Initial Assessments - Earnestine Broussard RN - 11/28/2018 8:39 AM EDT Office of Care Management Initial Assessment Earnestine Broussard RN reviewed record and discussed patient with Care Team. Source of Information: Chart, Care team Reason for Hospitalization: left renal artery Occlusion/ MUSA No past medical history on file. Hospitalizations Within the Past 30 Days: No Anticipated Length Of Stay (If known): 3-4 days Current Decision-Making Capacity: alert and oriented X 4 Advance Care Planning: If AD's have not been completed would be surrogate decision maker per [place] surrogate decision making law. Any patient receiving care at [facility] must abide by [place] law. The hierarchy for surrogate decision making is: (a) Patient???s spouse, or civil union partner or common law spouse unless there is a divorce proceeding, separation agreement, or restraining order limiting that person???s relationship with the patient. (b) Any adult son or daughter of the patient. (c) Either parent of the patient. (d) Any adult brother or sister of the patient. (e) Any adult grandchild of the patient. (f) Any grandparent of the patient. (g) Any adult aunt, uncle, niece, or nephew of the patient. (h) A close friend of the patient. (i) The agent with financial power of pen tender or a conservator appointed in accordance with RSA 464-A. (j) The guardian of the patient???s estate. Current Coping/Education/Information Needs: not discussed Current Functional Ability: independent Functional Status Prior to Admission: Independent, works fulltime. No significant medical history. active Home Environment: Lives in own home with . No concerns with ability to do stairs. Social & Family Supports/Community Resources: /familly/[facility] History: not discussed Substance Use/Abuse: Social History Tobacco Use ??? Smoking status: Never Smoker ??? Smokeless tobacco: Never Used Substance Use Topics ??? Alcohol use: Yes Alcohol/week: 8.4 oz Types: 14 Cans of beer per week Frequency: 4 or more times a week Drinks per session: 1 or 2 ??? Drug use: Never Other Pertinent/Service Specific Information: N/A Health/Prescription Coverage: Primary Insurance: [employer] [facility] Secondary Insurance: N/A Prescription Coverage: Yes Preferred Pharmacy: None on file Other: n/a Primary Care Provider: Sonal Sorensen, MUSIC TE[employer]ER [phone] Patient/Caregiver Goals of Treatment: not discussed Potential Needs for Transition of Care: Rehab/SNF: n/a Home Health: n/a DME: n/a Dialysis: n/a Community Resources: n/a Transportation: Other: n/a Anticipated Barriers to Discharge/Special Considerations: None identified Assessment: 58 year old man with no significant known past medical history who presented toN withthe chief complaint of left flank pain. He was transferred to [facility] after he was found to have left renal artery stenosis. Vascular consulting Plan: DC to home/self care A member of the Care Management team will continue to monitor progress, follow for continuity of care and assist with transition of care planning. Earnestine Broussard RN Pager: [phone] * Plan of Care - Coral Corbin RN - 11/28/2018 7:02 AM EDT Problem: Patient Care Overview Goal: Plan of Care Review Outcome: Ongoing (Interventions Implemented as Appropriate) 11/27/18 2228 11/28/18 0649 Plan of Care Review Progress -- progress towards functional goals is fair Coping/Psychosocial Plan Of Care Reviewed With patient -- OUTCOME EVALUATION NOTE: OUTCOME SUMMARY: Pt is alert and oriented x4, very anxious and concerned about GIB. Educated about signs and symptoms. BP hypertensive, HR WNL. Last temperature was 38.7, MD aware, pt declined Tylenol or pain meds. Blood cultures drawn and mulitple labs, see MAR. Heparin dose changed x1 for UFH of .25, latest UFH .41, no changes made. Potassium and magnesium due to be replaced as soon as new PIV is placed. Pt wasup and ambulated around hallway x2. PLAN MOVING FORWARD: Place new PIV Monitor labs UFH lab draw at 1100 Pain management Collect UA Monitor VS INDIVIDUALIZED FALL PREVENTION INTERVENTIONS: Patient-specific fall risk factors per assessment: [current deficits]: IV's, flank pain Assistance [level of assistance required for transfers and ambulation]: Independent with standby for first 24hr Supervision [direct monitoring required during toileting and ADLs]: Independent with standby for first 24hr Surveillance [continuous indirect monitoring]: Room near nurses station, close observation, call cervantes within reach Patient-specific fall prevention interventions for sensory deficits provided, if applicable: [X] No * Plan of Care - Yen Hernandez RN - 11/27/2018 3:16 PM EDT Problem: Patient Care Overview Goal: Plan of Care Review Outcome: Ongoing (Interventions Implemented as Appropriate) 11/27/18 0915 Coping/Psychosocial Plan Of Care Reviewed With patient OUTCOME EVALUATION NOTE: OUTCOME SUMMARY: Pt was calm and cooperative throughout shift. VSS-intermittently HTN. PRN hydralazine 5 mg for BP of 177/96 per NSG comm. Hydralazine increased to 10 mg q4 PRN, see MAR. A&O X4. PRN Tylenol given w/ good effect. Duplex of renal arteries obtained. Pt started at heparin gtt @ 950 units/hr. NS @ 75 mL/hr started. Will continue to monitor. PLAN MOVING FORWARD: Monitor UFH levels Monitor for bleeding Monitor I&Os INDIVIDUALIZED FALL PREVENTION INTERVENTIONS: Patient-specific fall risk factors per assessment: [current deficits]: Masimo, IV sites Assistance [level of assistance required for transfers and ambulation]: SBA/IND Supervision [direct monitoring required during toileting and ADLs]: Eyes on Surveillance [continuous indirect monitoring]: Purposeful rounding, family at bedside, Masimo, bed alarm, room near nurses station Patient-specific fall prevention interventions for sensory deficits provided, if applicable: [X] Yes CPG GOAL OUTCOME EVALUATION: Goal: Fall Prevention-Safe Patient Handling Outcome: Ongoing (Interventions Implemented as Appropriate) 11/27/18 0452 11/27/18 0911/27/18 1100 Lockhart Fall Risk History of Falling -- 0 -- Secondary Diagnosis -- 15 -- Ambulatory Aids -- 0 -- Intravenous Therapy/Heparin/Saline Lock -- 20 -- Gait/Transferring -- 0 -- Mental Status -- 0 -- Score -- 35 -- OTHER Lockhart Fall Risk -- Med -- Restraint Interventions Safety Promotion/Fall Prevention -- -- fall prevention program maintained;muscle strengthening facilitated;nonskid shoes/slippers when out of bed;safety round/check completed Positioning Body Position -- -- independent Activity Activity Type -- -- activity adjusted per tolerance Activity Assistance Provided assistance, stand-by -- -- Assistive Device Utilized none -- -- Goal: Infection Control Outcome: Ongoing (Interventions Implemented as Appropriate) 11/27/1891411/27/18 1100 Safety Interventions Isolation Precautions standard precautions maintained -- Infection Prevention -- environmental surveillance performed;single patient room provided Coping Strategies Supportive Measures active listening utilized;decision-making supported;positive reinforcement provided;self-care encouraged;verbalization of feelings encouraged -- Goal: Discharge Needs Assessment Outcome: Ongoing (Interventions Implemented as Appropriate) 11/27/18 1510 Discharge Needs Assessment Concerns To Be Addressed no discharge needs identified Readmission Within The Last 30 Days no previous admission in last 30 days Equipment Needed After Discharge none Discharge Disposition home or self-care Current Health Anticipated Changes Related to Illness none Activity/Self Care Review of Systems Equipment Currently Used at Home none Living Environment Transportation Available family or friend will provide Goal: Interdisciplinary Rounds/Family Conf Outcome: Ongoing (Interventions Implemented as Appropriate) 11/27/18 1510 Interdisciplinary Rounds/Family Conf Participants nursing;family;patient;physician * Consult Note - Garry Dutta - 11/27/2018 12:05 PM EDT HYPERTENSION/ NEPHROLOGY CONSULT PATIENT: Levi Bravo : 1960 REASON FOR CONSULTATION:Non oliguric MUSA,suspected L renal artetry stenosis with HTN to assist in management HPI: Levi Bravo is a 58 years old male with no known past medical history in the past transferred from [facility] for recently found left renal artery stenosis associated with flank pain for whom we are consulted for assist in management of Non oliguric MUSA, possible DON and HTN. Levi initially started having abdominal bloating and distention associated with the shortness of breath and mild cough 5 days ago. 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 Was given steroids and azithromycin and was sent home. He noticed a weight gain of about 12 pounds after he was given IV fluids and was sent home. Continue to have a good urine output and improvement of his shortness of breath and abdominal discomfort. Yesterday he suddenly started having left flank pain which gradually worsened so went to ED for furtherevaluation. He is a urine analysis showed no evidence of for urinary tract infection/protein,showedtrace heme with rare RBCs.CT abdomen/pelvis w/o contrast done 11/26 which showed Contrast material in the L kidney form recent CT chest (11/24) and no hydronephrosis.Nephrology() was contacted by OSH physician and was recommended to get further w/u for possible vasculitis,renal artery sten osis,infectious w/u.Due to persistent ongoing Sx, transferred to [facility] for further management Denies any CP/SOB/headache/dizziness now.Flank pain is improving with pian meds.No fever/chills.Christianson dry cough.No hemoptysis.No dysurea/hematuria/N/V/Headache/visual changes/rash/mouth ulcers/joint pain s/change in bowel habits/plpitations/fatigue/loss of appetite. Uses Ibuprofen once/twice monthly and not on regular basis.NNot taking any herbal supplements.Neverhad elevated BP before.No h/o fluid overload/cradic issues in the past.His weight today back to hisusual weight of 138Lbs. Family History Problem Relation Age of Onset ??? Myocardial Infarction Father 52 No known family h/o chronic kidney problems Social History Social History Narrative Not on file No tobacco/illicit drug use.Drinks about 2 beers /day Outpatient medications: No current facility-administered medications on file prior to encounter. Current Outpatient Medications on File Prior to Encounter Medication Sig Dispense Refill ??? azithromycin (ZITHROMAX) 250 mg Tablet take 1 tablet by mouth daily (START ON DAY 2 OF THERAPY 0 ??? predniSONE (DELTASONE) 20 mg Tablet take 2 tablets (40MG) by mouth daily 0 ??? ketoconazole (NIZORAL) 2 % cream Apply topically daily. ??? ibuprofen (ADVIL;MOTRIN) 400 mg tablet Take 400 mg by mouth every 6 hours as needed. MEDICATIONS: ??? sodium chloride 0.9 % 5 mL Intravenous BID ??? amLODIPine 5 mg Oral Daily Allergies Allergen Reactions ??? Pseudafen [Pseudoephedrine Hcl] ROS: Constitutional - No fevers, chills, weight loss Skin - No rash or itchy skin HEENT - No headaches, visual changes Resp -+ cough, improved shortness of breath CV - No chest pain, leg swelling, difficulty breathing lying flat GI - No nausea, vomiting,change in bowel habits/abdominal pain - No change in urine output. No pain urinating or blood in urine. Neuro - No weakness. No numbness/ tingling in extremities. PHYSICAL EXAM: Last value Range last 24 hrs Temperature Temp: 37.6 ??C (99.7 ??F) Temp: [37.2 ??C (99 ??F)-37.8 ??C (100 ??F)] Heart Rate Heart Rate: 58 Heart Rate: [49-70] Blood Pressure BP: 148/64 BP: (148-188)/(64-102) Respiratory Rate Resp: 18 Resp: [13-22] SpO2 SpO2: 97 % SpO2: [92 %-99 %] Appearance - Alert, Comfortable. Skin - No exanthem. HEENT - Sclera white. Mucous membranes moist. Chest: Lungs clear to ausculatation w/o wheezes/ rhonchi/ crackles. Heart - S1 and S2 clear w/o murmur, gallop, or rub. JVP not elevated. Abd - Soft. + BS. No bruit. Non tender,no CVA tenderness bilaterally Ext - Warm. No cyanosis. No dependent edema. Neuro - No focal deficits on exam STUDIES: Labs: CBC: Recent Labs 11/27/18 0420 11/26/18 2350 WBC 7.6 7.9 HGB 12.8* 12.3* PLATELET 109* 119* Chemistry: Recent Labs 11/27/18 1140 11/26/18 2350 NA 139 142 K 3.4* 3.7 CL 103 104 CO2 22 24 BUN 14 21* CREATININE 1.51* 1.80* GLUCOSE -- 114 Recent Labs 11/27/18 1140 11/26/18 2350 CALCIUM 8.5 8.7 LFT's: Recent Labs 11/26/18 2350 BILITOT 0.6 BILIDIR 0.2 ALBUMIN 3.9 ALKPHOS 52 ALT 22 AST 34 RENAL DUPLEX:11/27/18: Right: Patent main renal artery with no evidence of hemodynamically significant stenosis. Left: There is no identifiable flow by duplex in what is suspected to be the main renal artery; suspect occlusion. No arterial flow identified within the kidney. Patent renal vein. IMPRESSION/ RECOMMENDATIONS: Levi Bravo is a 58 y/o with no known PMH is now with newly found L renal artery stenosis and elevated BP concerning for renovascular HTN,Non oliguric MUSA possibly from possible ischemic nephropathy secondary to L renal artery occlusion/stenosis.Not on chronic NSAIDs to contribute for MUSA Non oliguric MUSA: -Mostly from ischemic injury from renal artery occlusion/stenosis.Possibly contributed by recent bradycardia leading to hemodynamic MUSA.Urine lytes consistent with intrinsic renal injury(U sodium of 111,FeNa>3). -Less likely pulmonary renal syndrome as having no significant pulmonary symptoms and with stable hemodynamics but can not completely rule out -Urine microscopy showed bland sediment-no casts/dysmorphic RBCs suggesting glomerular pathology.UAalso showed no protein and very trace heme not suggesting any glomerular pathology. 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 -Need to evaluate for any thrombus leading to embolization.Check 2D Echo -Recommend to check DELON,C-ANCA,P-ANCA,complement levels,hepatitis panel to r/o vasculitis/infectious etiology.Possible renal atherosclerotic disease but usually chronic -Once relieve the obstruction/occlusion,might benefit from renal perfusion scan to evaluate for kidney function -For now recommend to manage BP medically with amlodipine and hydraazine and hold AKUA/ARB untl renal function is stable /down trending.Will benefit from AKUA/ARB chcf if renal function continues to improve -F/u with vascular for further recommendations/interventions Thanks for letting us participate in the care of this patient. Seen and Discussed w/ Dr.Remillard Garry Dutta MD Nephrology Fellow #[id number] Associated attestation - Ernie Garrett MD - 11/28/2018 7:14 AM EDT The patient was seen and examined with the nephrology fellow. Please see the nephrology fellow's note from today for details. I have reviewed the fellow's note including the exam, assessment and plan. My evaluation of the patient is as follows: Patient with one week history, initially seen at OSH with SOB/mild cough. Initial CT for PE, then noncontrast CT abd/pelvis with delayed left nephrogram/now with no flow on duplex to left kidney. Creatinine elevated compared to baseline. Etiology of occlusion unclear ? Embolism given initial cardiac symptoms noted by patient (hr 40's perhaps had tachy/cherelle/afib) however, the increase in creatinine to this degree is unusual in unilateral occlusion. Sometimes can see this by reflex vasospasm. Urinalysis bland in office, but would work up for possible vasculitis as a large vessel vasculitis could lead to occlusion. Might be worth getting a renal scan with to see if there is any viability to kidney via collaterals. Would get thrombosis screen also. Agree with vascular consult vis a vis anticoagulation. * Consult Note - Homer Brennan - 11/27/2018 7:24 AM EDT [facility] Department of Surgery Inpatient Consult Note Consultation Requested by: Kei Cerna MD HPI: We are seeing Levi Bravo today at the request of Dr. Kei Cerna MD for evaluation and advice about left renal artery stenosis. Levi Bravo is a 58 year old man with no significant known past medical history who [facility] with the chief complaint of left flank pain. He was transferred to [facility] after he was found to have left renal artery stenosis. He reports developing abdominal bloating about four days ago, with associated difficulty breathing.The next day he reports noticing his heart rate was low, and his difficulty breathing seemed worse.He presented to his [facility] ED where he was found to have pneumonia and MUSA. He was given IV fluid anddischarged on steroids and antibiotics. 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 That evening he noticed a 12 lb weight gain and leg swelling. He also at that time noticed a dull left flank pain. He presented yesterday to [facility] due to the weight gain. Yesterday evening around 6 PM he reports the pain became severe, still intermittent. He was transferred to [facility] and reports when he arrived here his left flank pain was still severe and is now constant and unrelenting. He denies abdominal pain, nausea, vomiting, fever, chills, and dysuria. PMH: No past medical history on file. PSH: No past surgical history on file. HOME MEDICATIONS: No current facility-administered medications on file prior to encounter. Current Outpatient Medications on File Prior to Encounter Medication Sig Dispense Refill ??? azithromycin (ZITHROMAX) 250 mg Tablet take 1 tablet by mouth daily (START ON DAY 2 OF THERAPY 0 ??? predniSONE (DELTASONE) 20 mg Tablet take 2 tablets (40MG) by mouth daily 0 ??? ketoconazole (NIZORAL) 2 % cream Apply topically daily. ??? ibuprofen (ADVIL;MOTRIN) 400 mg tablet Take 400 mg by mouth every 6 hours as needed. ACTIVE MEDICATIONS: Scheduled Meds: ??? sodium chloride 0.9 % 5 mL Intravenous BID ??? heparin (Porcine) 5,000 Units Subcutaneous 2 times per day ??? captopril 6.25 mg Oral Q8H SHELLI Continuous Infusions: PRN Meds:.sodium chloride 0.9 %, lidocaine, hydrALAZINE, oxyCODONE ALLERGIES: Allergies Allergen Reactions ??? Pseudafen [Pseudoephedrine Hcl] FAMILY HISTORY: Family History Problem Relation Age of Onset ??? Myocardial Infarction Father 52 SOCIAL HISTORY: Social History Socioeconomic History ??? Marital status: [...] Sexual Activity ??? Alcohol use: Yes Alcohol/week: 8.4 oz [...] file Gets together: Not on file Attends gnosticist service: Not on file Active member of club or organization: Not on file Attends meetings of clubs or organizations: Not on file Relationship status: Not on file ??? Intimate partner violence: Fear of current or ex partner: Not on file Emotionally abused: Not on file Physically abused: Not on file Forced sexual activity: Not on file Other Topics Concern ??? Not on file Social History Narrative ??? Not on file ROS: As stated above, otherwise 10 systems negative PHYSICAL EXAM Temp: [37.2 ??C (99 ??F)-37.3 ??C (99.1 ??F)] Heart Rate: [49-70] Resp: [13-21] BP: (151-185)/(78-102) SpO2: [92 %-99 %] Heart Rate from SpO2: [49 bpm-69 bpm] Gen: Mild distress, standing next to bed CV: RRR Pulm: clear to auscultation b/l GI: Soft, non distended, no tenderness to palpation, flank tender to palpation Ext: pulses 2+ Neuro: no focal deficits Vascular: R L Radial 2/2 2/2 Femoral 2/2 2/2 Popliteal 2/2 2/2 DP 2/2 2/2 PT 2/2 2/2 LABORATORY DATA Recent Labs 11/27/18 0420 11/26/18 2350 WBC 7.6 7.9 HGB 12.8* 12.3* PLATELET 109* 119* NA -- 142 K -- 3.7 CL -- 104 CO2 -- 24 BUN -- 21* CREATININE -- 1.80* GLUCOSE -- 114 LFT's Lab Results Component Value Date Alk Phos 52 11/26/2018 AST 34 11/26/2018 Albumin 3.9 11/26/2018 Bili, Direct 0.2 11/26/2018 Total Bilirubin 0.6 11/26/2018 ALT 22 11/26/2018 Total Protein 6.0 (L) 11/26/2018 Coags Lab Results Component Value Date INR 1.1 11/26/2018 PT 12.6 (H) 11/26/2018 PTT 23 (L) 11/26/2018 MICRO: Microbiology Results (Last 30 days) No results found for the last 720 hours. IMAGING: CT Abdomen & Pelvis FINDINGS: The absence of intravenous contrast limits the evaluation of solid viscera and vasculature. ?? Lower chest: Minimal linear atelectasis. ?? Liver: Normal attenuation, no focal lesion. There is mild periportal edema. Bile ducts: No intra or extrahepatic bile [...] Normal unenhanced appearance of the right kidney. ?? Vasculature: Scattered calcified atherosclerosis of a mildly [...] No loculated fluid collection. No free air. ?? Urinary Bladder: Normal distention. No bladder wall thickening. Reproductive organs: Mild predominantly lower body wall edema. ?? Osseous structures: No suspicious lesions. Mild multilevel degenerative changes of the lower thoracic and lumbar spine most severe at L5-S1. Minimal retrolisthesis of L5 on S1. Duplex Study Renal Arteries, Bilat Findings: ?? Malina Renal Aorta ?PSV (cm/s): 83 ?EDV (cm/s): 11 Renal Artery Ostium, Right ?PSV (cm/s): 100 ?EDV (cm/s): 15 Renal Artery Proximal, Right ?PSV (cm/s): 106 ?EDV (cm/s): 25 ?RAR: 1.3 ?RI: 0.76 Renal Artery Mid, Right ?PSV (cm/s): 87 ?EDV (cm/s): 21 ?RAR: 1.0 ?RI: 0.75 Renal Artery Distal, Right ?PSV (cm/s): 59 ?EDV (cm/s): 15 ?RAR: 0.7 ?RI: 0.74 Mid Pole Renal Parenchyma, Right ?PSV (cm/s): 29 ?EDV (cm/s): 9 ?RI: 0.68 ?AT (ms): 34 Renal Hilum, Right ?AT (ms): 34 Kidney Length, Right ?Length (cm): 10.8 Renal Vein, Right ?Patent: Patent Renal Artery??Proximal, Left ?PSV (cm/s): 0 ?RAR: 0.0 Kidney Length, Left ?Length (cm): 10.3 Renal Vein, Left ?Patent: Patent ? Interpretation: ? Right: Patent main renal artery with no evidence of hemodynamically significant stenosis. ?? Left: There is no identifiable flow by duplex in what is suspected to be the main renal artery; suspect occlusion. No arterial flow identified within the kidney. Patent renal vein. ?? Comparison: ??No previous study in our vascular lab database for comparison. ?? IMPRESSION 1. Delayed left nephrogram, secondary to renal artery stenosis, given focal severe narrowing at the origin of the left renal artery on recent comparison study. 2. Small to moderate volume low density ascites throughout the abdomen and Pelvis. IMPRESSION: Levi Bravo is a 58 y.o. male with no known past medical history who presented with new left flank pain, MUSA, and left renal artery stenosis. Per renal duplex, the left kidney has no flow. Given this, and the prolonged time frame, we can offer no surgical or endovascular intervention. Recommend work up for this potential embolic event (TTE with bubble study, etc.). Also recommend the patient should be on a therapeutic heparin infusion, at least until his workup returns. Vascular surgery will follow. RECOMMENDATION: - Workup for embolic event - Therapeutic heparin infusion - Vascular Surgery will follow the patient closely Homer Brennan MD Vascular Surgery documented in this encounter Plan of Treatment Upcoming Encounters Date Type Department Care Team (Late st Contact Info) Description 06/16/2024 4:00 PM EDT Office Visit [place] [address] Betzaida Cope, MUSIC TEACHER [facility] [place] [address] 06/23/2024 2:00 PM EDT Appointment Non-Invasive Cardiology Lab [facility] [place] [id number] Owen Correia MD [facility] [place] [address] Scheduled Orders Name Type Priority Associated Diagnoses Order Schedule Film Library- Storage Only CT Abdomen & Pelvis Imaging Storage Only STAT Once PRN (for Radiant use) for 1 Occurrences starting 11/27/2018 until 11/27/2018, 1 completed Film Library- Storage Only DX Chest Imaging Storage Only STAT Once PRN (for Radiant use) for 1 Occurrences starting 11/27/2018 until 11/27/2018, 1 completed Film Library- Storage Only CT Chest Imaging Storage Only STAT Once PRN (for Radiant use) for 1 Occurrences starting 11/27/2018 until 11/27/2018, 1 completed VS Arteriogram Renal Vascular Surgery Imaging Routine Once PRN (for Radiant use) for 1 Occurrences starting 11/30/2018 until 11/30/2018 NM Renal w Function Study Imaging Routine Once PRN (for Radiant use) for 1 Occurrences starting 12/01/2018 until 12/01/2018 documented as of this encounter Procedures Procedure Name Priority Date/Time Associated Diagnosis Comments HEPARIN (UNFRACTIONATED) LEVEL Routine 12/01/2018 6:00 AM EDT BMP W/FASTING GLUCOSE Routine 12/01/2018 6:00 AM EDT HEMOGRAM Routine 12/01/2018 6:00 AM EDT DIFFERENTIAL, AUTOMATED Routine 12/02/19 19 6:00 AM EDT CBC (WITH DIFF) Routine 12/01/2018 6:00 AM EDT PHOSPHORUS Routine 12/01/2018 6:00 AM EDT MAGNESIUM Routine 12/01/2018 6:00 AM EDT HEPARIN (UNFRACTIONATED) LEVEL Routine 12/01/2018 12:30 AM EDT HEPARIN (UNFRACTIONATED) LEVEL Routine 11/30/2018 6:52 PM EDT HEPARIN (UNFRACTIONATED) LEVEL STAT 11/30/2018 12:35 PM EDT PROTEIN/CREATININE RATIO, URINE Routine 11/30/2018 8:26 AM EDT HEPARIN (UNFRACTIONATED) LEVEL STAT 11/30/2018 4:56 AM EDT BMP W/FASTING GLUCOSE Routine 11/30/2018 4:56 AM EDT HEMOGRAM Routine 11/30/2018 4:56 AM EDT DIFFERENTIAL, AUTOMATED Routine 12/01/19 19 4:56 AM EDT CBC (WITH DIFF) Routine 11/30/2018 4:56 AM EDT PHOSPHORUS Routine 11/30/2018 4:56 AM EDT MAGNESIUM Routine 11/30/2018 4:56 AM EDT REQUEST FOR 2ND READ CT CHEST Routine 11/29/2018 2:02 PM EDT CRP, ACUTE INFLAMMATION Routine 11/30/19 19 4:56 AM EDT HEPARIN (UNFRACTIONATED) LEVEL STAT 11/29/2018 4:56 AM EDT BMP W/FASTING GLUCOSE Routine 11/29/2018 4:56 AM EDT HEMOGRAM Routine 11/29/2018 4:56 AM EDT DIFFERENTIAL, AUTOMATED Routine 11/30/19 19 4:56 AM EDT SEDIMENTATION RATE Routine 11/29/2018 4: 56 AM EDT CBC (WITH DIFF) Routine 11/29/2018 4:56 AM EDT PHOSPHORUS Routine 11/29/2018 4:56 AM EDT MAGNESIUM Routine 11/29/2018 4:56 AM EDT HEPARIN (UNFRACTIONATED) LEVEL STAT 11/28/2018 11:04 PM EDT BLOOD CULTURE STAT 11/28/2018 11:04 PM EDT URIC ACID Routine 11/28/2018 11:04 PM EDT XR CHEST PA AND LATERAL Routine 11/29/19 19 9:30 PM EDT MRI ANGIOGRAM ABDOMEN WWO CONTRAST STAT 11/28/2018 5:26 PM EDT ECHO COMPLETE Routine 11/28/2018 4:00 PM EDT Renal artery stenosis HEPARIN (UNFRACTIONATED) LEVEL STAT 11/28/2018 2:59 PM EDT ABORH RECHECK STATUS Routine 11/28/2018 12:21 PM EDT ABO/RH TYPING Routine 11/28/2018 12:21 PM EDT ANTIBODY SCREEN Routine 11/28/2018 12:21 PM EDT TYPE AND SCREEN (MC/CGP/YOUSUF) Routine 11/28/2018 12:21 PM EDT POTASSIUM Routine 11/28/2018 11:37 AM EDT URINALYSIS MICROSCOPIC EXAM Routine 11/28/2018 9:24 AM EDT URINALYSIS WITH REFLEX CULTURE Routine 11/28/2018 9:24 AM EDT BLOOD CULTURE STAT 11/28/2018 7:00 AM EDT CYTOPLASMIC NEUTROPHILIC AB Routine 11/28/2018 6:56 AM EDT PROTEINASE-3 ANTIBODY Routine 11/28/2018 6:56 AM EDT MYELOPEROXIDASE AB Routine 11/28/2018 6: 56 AM EDT COMPLEMENT ALTERNATE PATH Routine 11/28/2018 6:56 AM EDT HEPATITIS C ANTIBODY Routine 11/28/2018 6:56 AM EDT HEPATITIS A ANTIBODY, TOTAL Routine 11/28/2018 6:56 AM EDT HEPATITIS B CORE ANTIBODY, IGM Routine 11/28/2018 6:56 AM EDT HEPATITIS B CORE ANTIBODY, TOTAL Routine 11/28/2018 6:56 AM EDT HEPATITIS C RNA, QUANTITATIVE, PCR Routine 11/28/2018 6:56 AM EDT HEPATITIS B SURFACE ANTIBODY Routine 11/28/2018 6:56 AM EDT HEPATITIS B SURFACE ANTIGEN Routine 11/28/2018 6:56 AM EDT BLOOD CULTURE STAT 11/28/2018 6:56 AM EDT COMPLEMENT, TOTAL Routine 11/28/2018 6:5 6 AM EDT C3 COMPLEMENT Routine 11/28/2018 6:56 AM EDT C4 COMPLEMENT Routine 11/28/2018 6:56 AM EDT DELON ANTIBODY SCREEN Routine 11/28/2018 6 :56 AM EDT HEPARIN (UNFRACTIONATED) LEVEL STAT 11/28/2018 5:08 AM EDT BMP W/FASTING GLUCOSE Routine 11/28/2018 5:08 AM EDT HEMOGRAM Routine 11/28/2018 5:08 AM EDT DIFFERENTIAL, AUTOMATED Routine 11/29/19 19 5:08 AM EDT CBC (WITH DIFF) Routine 11/28/2018 5:08 AM EDT URIC ACID Routine 11/28/2018 5:08 AM EDT PHOSPHORUS Routine 11/28/2018 5:08 AM EDT MAGNESIUM Routine 11/28/2018 5:08 AM EDT LACTATE DEHYDROGENASE Routine 11/28/2018 5:08 AM EDT HEPARIN (UNFRACTIONATED) LEVEL STAT 11/27/2018 9:48 PM EDT TROPONIN STAT 11/27/2018 9:48 PM EDT HEPARIN (UNFRACTIONATED) LEVEL STAT 11/27/2018 2:25 PM EDT BMP W/FASTING GLUCOSE Routine 11/27/2018 11:40 AM EDT TROPONIN Routine 11/27/2018 11:40 AM EDT CK Routine 11/27/2018 11:40 AM EDT RENAL DUPLEX COMPLETE STAT 11/27/2018 9:12 AM EDT Renal artery stenosis CRP, ACUTE INFLAMMATION STAT 11/28/19 19 4:20 AM EDT PATHOLOGY SLIDE REVIEW STAT 9 4:20 AM EDT SCAN, PERIPHERAL BLOOD STAT 9 4:20 AM EDT HEMOGRAM STAT 11/27/2018 4:20 AM EDT DIFFERENTIAL, AUTOMATED STAT 11/28/19 19 4:20 AM EDT SEDIMENTATION RATE STAT 11/27/2018 4: 20 AM EDT TROPONIN STAT 11/27/2018 4:20 AM EDT OSMOLALITY STAT 11/27/2018 4:20 AM EDT LDL CHOLESTEROL, DIRECT STAT 11/28/19 19 4:20 AM EDT HDL/CHOL PROFILE STAT 11/27/2018 4:20 AM EDT CK STAT 11/27/2018 4:20 AM EDT REQUEST FOR 2ND READ CT ABDOMEN AND PELVIS Routine 11/27/2018 4:18 AM EDT SODIUM, URINE, RANDOM STAT 11/27/2018 4:00 AM EDT POTASSIUM, URINE, RANDOM STAT 11/27/2018 4:00 AM EDT CREATININE, URINE, RANDOM STAT 11/27/2018 4:00 AM EDT PATHOLOGY SLIDE REVIEW Routine 9 2:50 AM EDT EKG 12-LEAD STAT 11/27/2018 2:10 AM EDT HEMOGRAM STAT 11/26/2018 11:50 PM EDT DIFFERENTIAL, AUTOMATED STAT 11/27/19 11:50 PM EDT APTT STAT 11/26/2018 11:50 PM EDT PROTHROMBIN TIME STAT 11/26/2018 11:5 0 PM EDT CBC (WITH DIFF) STAT 11/26/2018 11:50 PM EDT HEPATIC FUNCTION PANEL STAT 9 11:50 PM EDT BASIC METABOLIC PANEL STAT 11/26/2018 11:50 PM EDT URINALYSIS MICROSCOPIC EXAM STAT 11/26/2018 9:06 PM EDT URINALYSIS WITH REFLEX CULTURE STAT 11/26/2018 9:06 PM EDT FILM LIBRARY STORAGE ONLY CT ABDOMEN AND PELVIS STAT 11/26/2018 12:00 AM EDT FILM LIBRARY STORAGE ONLY CT CHEST STAT 11/24/2018 12:05 AM EDT FILM LIBRARY STORAGE ONLY DX CHEST STAT 11/24/2018 12:00 AM EDT documented in this encounter Results * NM [...] the number below. ? Electronically signed by: Waldo Doherty [facility] ([phone]), at 12/05/2018 4:34 PM Narrative 12/05/2018 4:34 PM EDT EXAMINATION: NM [...] contact the number below. Electronically signed by: Waldo Doherty [facility]([phone]), at 12/05/2018 4:34 PM Manuel Martin MD [place] ORDERABLES * Heparin (unfractionated) Level (12/01/2018 6:00 AM EDT) UF Heparin 0.33 IU/mL [facility] Comment: Guidelines for therapeutic unfractionated heparin levels are summarized below. Heparin (Anti-Xa) levels should be determined in a plasma sample that has been drawn 6 hours after a dose change i.e., steady-state has been reached. DRUG ?Dosing Schedule ? Target Peak Steady-State ?Heparin (Anti-Xa) Levels (Units/mL) Unfractionated ?Continuous infusion ?0.3-0.7 Heparin ?0.3-0.6 for some neurology indications Blood specimen (specimen) 12/01/2018 6:00 AM EDT 12/01/2018 6:10 AM EDT Narrative Resulting Agency Comment Spec In Lab Manuel Martin MD HEMATOLOGY ORDERABLE S [facility] [place] [address] * (ABNORMAL) Differential, Automated (12/01/2018 6:00 AM EDT) Neutrophil % 76.7 % [facility] Neutrophil Absolute 6.26(H) 1.70 - 6.10 x10(3)/mc L [facility] Lymph % 9.7 % [facility] Lymphocytes Abs 0.8(L) 0.9 - 3.2 x10(3)/mc L [facility] Monocyte % 11.5 % [facility] Monocyte Abs 0.9 0.3 - 0.9 x10(3)/mc L [facility] Eos % 1.1 % [facility] Eosinophils Abs 0.1 0.0 - 0.4 x10(3)/mc L [facility] Basophil % 0.5 % [facility] Baso Absolute 0.0 0.0 - 0.1 x10(3)/mc L [facility] Immature Gran % 0.50 % [facility] Comment: Immature granulocytes(IG's)percentage and absolute count will include metamyelocytes, myelocytes, and promyelocytes. Blood smears from CBCs yielding IG's will be scanned manually for concordance. If this scan disagrees with the automated IG or if promyelocytes are noted, a manual differential will be performed. Immature Gran Absolute 0.04 0.00 - 0.04 x10(3)/mc L [facility] Blood specimen (specimen) 12/01/2018 6:00 AM EDT 12/01/2018 6:10 AM EDT Narrative Resulting Agency Comment Spec In Lab Ayidn Hidalgo MD HEMATOLOGY ORDERABLE S [facility] [place] [address] * (ABNORMAL) Hemogram (12/01/2018 6:00 AM EDT) White Blood Cell 8.2 4.0 - 9.5 x10(3)/mc L [facility] Red Blood Cell 3.64(L) 4.58 - 5.54 x10(6)/[facility] Hemoglobin 11.3(L) 13.7 - 16.5 gm/dL [facility] Hematocrit 33.8(L) 40.5 - 48.5 % [facility] Mean Cell Volume 92.9 82.9 - 93.1 fL [facility] Mean Cell Hemoglobin 31.0 27.5 - 32.1 pg [facility] Mean Cell Hemoglobin Concentration 33.4 32.0 - 35.7 gm/dL [facility] Platelet 124(L) 145 - 357 x10(3)/ L [facility] RDW Standard Deviation 41.8 36.0 - 45.0 [facility] RDW coefficient of variation 12.1 11.4 - 13.8 % [facility] Mean Platelet Volume 11.2 7.6 - 12.9 [facility] NRBC% auto 0.0 % [facility] NRBC Absolute 0.000 0.000 - 0.000 x10(3)/ L [facility] Blood specimen (specimen) 12/01/2018 6:00 AM EDT 12/01/2018 6:10 AM EDT Narrative Resulting Agency Comment Spec In Lab Aydin Hiadlgo MD HEMATOLOGY ORDERABLE S Performing Organization Address [facility] de Phone Number [facility] [place] [address] * (ABNORMAL) Phosphorus (12/01/2018 6:00 AM EDT) Phosphorus 2.3(L) 2.5 - 4.5 mg/dL [facility] Blood specimen (specimen) 12/01/2018 6:00 AM EDT 12/01/2018 6:10 AM EDT Narrative Resulting Agency Comment Spec In Lab Manuel Martin MD CHEMISTRY ORDERABLES Performing Organization Address [facility] de Phone Number [facility] [place] [address] * Magnesium (12/01/2018 6:00 AM EDT) Magnesium 0.86 0.69 - 1.07 mmol/L [facility] Blood specimen (specimen) 12/01/2018 6:00 AM EDT 12/01/2018 6:10 AM EDT Narrative Resulting Agency Comment Spec In Lab Manuel Martin MD CHEMISTRY ORDERABLES Performing Organization Address [facility] de Phone Number [facility] [place] [address] * (ABNORMAL) BMP w/fasting Glucose (12/01/2018 6:00 AM EDT) Glucose Fasting 111(H) 65 - 99 mg/dL [facility] Comment: ?Fasting* Glucose Interpretive Criteria Normal ?65-99 mg/dL Impaired Fasting glucose ?100-125 mg/dL Consistent with Diabetes Mellitus ? >or= 126 mg/dL *Fasting is defined as no caloric intake for at least 8 hours In the absence of unequivocal hyperglycemia a plasma glucose value of >or= 126 mg/dL should be repeated on a subsequent day. Diagnosis and Classification of Diabetes Mellitus, Position Statement from the [place] [employer]. ??Diabetes Care, Volume 33, Supplement 1, Sep 2009 Blood Urea Nitrogen 14 10 - 20 mg/dL [facility] Creatinine 1.32 0.80 - 1.50 mg/dL [facility] Sodium 140 135 - 145 mmol/L [facility] Potassium 3.8 3.5 - 5.0 mmol/L [facility] Comment: Please note: ??Patients with WBC >100,000 may have falsely elevated Potassium levels. ??For accurate Potassium quantification in these patients send serum separator tube (gold top) for subsequent determinations. ??Contact the Clinical Chemistry Laboratory if there are any questions. Chloride 104 98 - 107 mmol/L [facility] Carbon Dioxide 25 22 - 31 mmol/L [facility] Anion Gap 11 5 - 15 mmol/L [facility] Calcium 7.9(L) 8.5 - 10.5 mg/dL [facility] Est Glomerular Filtration Rate 59(L) >=60 mL/min/1. 73 m?? [facility] Comment: The eGFR was calculated using the CKD-EPI equation. As with all creatinine based estimates of kidney function, eGFR values calculated with the CKD-EPI equation are not accurate in patients with acute kidney failure, extremes of body mass or the acutely ill. [email or web address] eGFR 68 >=60 mL/min/1. 73 m?? [facility] Comment: The eGFR was calculated using the CKD-EPI equation. As with all creatinine based estimates of kidney function, eGFR values calculated with the CKD-EPI equation are not accurate in patients with acute kidney failure, extremes of body mass or the acutely ill. [email or web address] Blood specimen (specimen) 12/01/2018 6:00 AM EDT 12/01/2018 6:10 AM EDT Narrative Resulting Agency Comment Spec In Lab Manuel Martin MD CHEMISTRY ORDERABLES Performing Organization Address [facility] de Phone Number [facility] [place] [address] * Heparin (unfractionated) Level (12/01/2018 12:30 AM EDT) UF Heparin 0.47 IU/mL [facility] Comment: Guidelines for therapeutic unfractionated heparin levels are summarized below. Heparin (Anti-Xa) levels should be determined in a plasma sample that has been drawn 6 hours after a dose change i.e., steady-state has been reached. DRUG ?Dosing Schedule ? Target Peak Steady-State ?Heparin (Anti-Xa) Levels (Units/mL) Unfractionated ?Continuous infusion ?0.3-0.7 Heparin ?0.3-0.6 for some neurology indications Blood specimen (specimen) 12/01/2018 12:30 AM EDT 12/01/2018 12:56 AM EDT Narrative Resulting Agency Comment Spec In Lab Manuel Martin MD HEMATOLOGY ORDERABLE S Performing Organization Address [facility] Co de Phone Number [facility] [place] [address] * Heparin (unfractionated) Level (11/30/2018 6:52 PM EDT) UF Heparin 0.21 IU/mL [facility] Comment: Guidelines for therapeutic unfractionated heparin levels are summarized below. Heparin (Anti-Xa) levels should be determined in a plasma sample that has been drawn 6 hours after a dose change i.e., steady-state has been reached. DRUG ?Dosing Schedule ? Target Peak Steady-State ?Heparin (Anti-Xa) Levels (Units/mL) Unfractionated ?Continuous infusion ?0.3-0.7 Heparin ?0.3-0.6 for some neurology indications Blood specimen (specimen) 11/30/2018 6:52 PM EDT 11/30/2018 7:07 PM EDT Narrative Resulting Agency Comment Spec In Lab Manuel Martin MD HEMATOLOGY ORDERABLE S [facility] [place] [address] * Heparin (unfractionated) Level (11/30/2018 12:35 PM EDT) UF Heparin 0.31 IU/mL [facility] Comment: Guidelines for therapeutic unfractionated heparin levels are summarized below. Heparin (Anti-Xa) levels should be determined in a plasma sample that has been drawn 6 hours after a dose change i.e., steady-state has been reached. DRUG ?Dosing Schedule ? Target Peak Steady-State ?Heparin (Anti-Xa) Levels (Units/mL) Unfractionated ?Continuous infusion ?0.3-0.7 Heparin ?0.3-0.6 for some neurology indications Blood specimen (specimen) 11/30/2018 12:35 PM EDT 11/30/2018 12:55 PM EDT Narrative Resulting Agency Comment Spec In Lab Manuel Martin MD HEMATOLOGY ORDERABLE S Performing Organization Address [facility] de Phone Number [facility] [place] [address] * (ABNORMAL) Protein/Creatinine Ratio, urine (11/30/2018 8:26 AM EDT) Creatinine, Urine 70 mg/dL [facility] Protein, Urine 63(H) 0 - 12 mg/dL [facility] Protein / Creatinine Ratio, Urine 0.9 ratio [facility] Urine specimen (specimen) 11/30/2018 8:26 AM EDT 11/30/2018 8:41 AM EDT Narrative Resulting Agency Comment Spec In Lab Ernie Garrett MD URINE ORDERABLES Performing Organization Address [facility] de Phone Number [facility] [place] [address] * Heparin (unfractionated) Level (11/30/2018 4:56 AM EDT) UF Heparin 0.17 IU/mL [facility] Comment: Guidelines for therapeutic unfractionated heparin levels are summarized below. Heparin (Anti-Xa) levels should be determined in a plasma sample that has been drawn 6 hours after a dose change i.e., steady-state has been reached. DRUG ?Dosing Schedule ? Target Peak Steady-State ?Heparin (Anti-Xa) Levels (Units/mL) Unfractionated ?Continuous infusion ?0.3-0.7 Heparin ?0.3-0.6 for some neurology indications Blood specimen (specimen) 11/30/2018 4:56 AM EDT 11/30/2018 5:02 AM EDT Narrative Resulting Agency Comment Spec In Lab Manuel Martin MD HEMATOLOGY ORDERABLE S [facility] [place] [address] * (ABNORMAL) Differential, Automated (11/30/2018 4:56 AM EDT) Neutrophil % 80.9 % [facility] Neutrophil Absolute 8.80(H) 1.70 - 6.10 x10(3)/mc L [facility] Lymph % 6.7 % [facility] Lymphocytes Abs 0.7(L) 0.9 - 3.2 x10(3)/mc L [facility] Monocyte % 11.1 % [facility] Monocyte Abs 1.2(H) 0.3 - 0.9 x10(3)/mc L [facility] Eos % 0.4 % [facility] Eosinophils Abs 0.0 0.0 - 0.4 x10(3)/mc L [facility] Basophil % 0.3 % [facility] Baso Absolute 0.0 0.0 - 0.1 x10(3)/mc L [facility] Immature Gran % 0.60 % [facility] Comment: Immature granulocytes(IG's)percentage and absolute count will include metamyelocytes, myelocytes, and promyelocytes. Blood smears from CBCs yielding IG's will be scanned manually for concordance. If this scan disagrees with the automated IG or if promyelocytes are noted, a manual differential will be performed. Immature Gran Absolute 0.06(H) 0.00 - 0.04 x10(3)/mc L [facility] Blood specimen (specimen) 11/30/2018 4:56 AM EDT 11/30/2018 5:02 AM EDT Narrative Resulting Agency Comment Spec In Lab Aydin Hidalgo MD HEMATOLOGY ORDERABLE S [facility] [place] [address] * (ABNORMAL) Hemogram (11/30/2018 4:56 AM EDT) White Blood Cell 10.9(H) 4.0 - 9.5 x10(3)/ L [facility] Red Blood Cell 3.61(L) 4.58 - 5.54 x10(6)/ L [facility] Hemoglobin 11.4(L) 13.7 - 16.5 gm/dL [facility] Hematocrit 33.0(L) 40.5 - 48.5 % [facility] Mean Cell Volume 91.4 82.9 - 93.1 fL [facility] Mean Cell Hemoglobin 31.6 27.5 - 32.1 pg [facility] Mean Cell Hemoglobin Concentration 34.5 32.0 - 35.7 gm/dL [facility] Platelet 104(L) 145 - 357 x10(3)/[facility] RDW Standard Deviation 40.8 36.0 - 45.0 [facility] RDW coefficient of variation 12.2 11.4 - 13.8 % [facility] Mean Platelet Volume 11.5 7.6 - 12.9 [facility] NRBC% auto 0.0 % [facility] NRBC Absolute 0.000 0.000 - 0.000 x10(3)/ L [facility] Blood specimen (specimen) 11/30/2018 4:56 AM EDT 11/30/2018 5:02 AM EDT Narrative Resulting Agency Comment Spec In Lab Aydin Hidalgo MD HEMATOLOGY ORDERABLE S Performing Organization Address [facility] de Phone Number [facility] [place] [address] * (ABNORMAL) Phosphorus (11/30/2018 4:56 AM EDT) Phosphorus 1.9(L) 2.5 - 4.5 mg/dL [facility] Blood specimen (specimen) 11/30/2018 4:56 AM EDT 11/30/2018 5:02 AM EDT Narrative Resulting Agency Comment Spec In Lab Manuel Martin MD CHEMISTRY ORDERABLES Performing Organization Address [facility] de Phone Number [facility] [place] [address] * Magnesium (11/30/2018 4:56 AM EDT) Magnesium 0.84 0.69 - 1.07 mmol/L [facility] Blood specimen (specimen) 11/30/2018 4:56 AM EDT 11/30/2018 5:02 AM EDT Narrative Resulting Agency Comment Spec In Lab Manuel Martin MD CHEMISTRY ORDERABLES Performing Organization Address [facility] de Phone Number [facility] [place] [address] * (ABNORMAL) BMP w/fasting Glucose (11/30/2018 4:56 AM EDT) Glucose Fasting 118(H) 65 - 99 mg/dL [facility] Comment: ?Fasting* Glucose Interpretive Criteria Normal ?65-99 mg/dL Impaired Fasting glucose ?100-125 mg/dL Consistent with Diabetes Mellitus ? >or= 126 mg/dL *Fasting is defined as no caloric intake for at least 8 hours In the absence of unequivocal hyperglycemia a plasma glucose value of >or= 126 mg/dL should be repeated on a subsequent day. Diagnosis and Classification of Diabetes Mellitus, Position Statement from the [place] [employer]. ??Diabetes Care, Volume 33, Supplement 1, Sep 2009 Blood Urea Nitrogen 14 10 - 20 mg/dL [facility] Creatinine 1.36 0.80 - 1.50 mg/dL [facility] Sodium 138 135 - 145 mmol/L [facility] Potassium 3.7 3.5 - 5.0 mmol/L [facility] mmol/L [facility] Anion Gap 10 5 - 15 mmol/L [facility] Calcium 7.9(L) 8.5 - 10.5 mg/dL [facility] Est Glomerular Filtration Rate 57(L) >=60 mL/min/1. 73 m?? [facility] Comment: The eGFR was calculated using the CKD-EPI equation. As with all creatinine based estimates of kidney function, eGFR values calculated with the CKD-EPI equation are not accurate in patients with acute kidney failure, extremes of body mass or the acutely ill. [email or web address] eGFR 66 >=60 mL/min/1. 73 m?? [facility] Comment: The eGFR was calculated using the CKD-EPI equation. As with all creatinine based estimates of kidney function, eGFR values calculated with the CKD-EPI equation are not accurate in patients with acute kidney failure, extremes of body mass or the acutely ill. [email or web address] Blood specimen (specimen) 11/30/2018 4:56 AM EDT 11/30/2018 5:02 AM EDT Narrative Resulting Agency Comment Spec In Lab Manuel aMrtin MD CHEMISTRY ORDERABLES [facility] [place] [address] * Request For 2nd Read CT Chest [...] SOB and findings on CT chest at [facility] with concern for bronchioliitis. We are concerned for vasculitis v malignancy; What Modality is the exam? CT Scan; Body Part (please add comments as necessary): CT Chest; I believe a reinterpretation of this exam may alter care of Patient. Yes TECHNIQUE: Axial contiguous sections were obtained through the chest via helical acquisition after intravenous contrast administration on 11/24/2018 at . PE protocol was performed. Coronal and sagittal [...] withSOB and findings on CT chest at [facility] with concern for bronchioliitis. We areconcerned for vasculitis v malignancy; What Modality is the exam? CT Scan; BodyPart (please add comments as necessary): CT Chest; I believe a reinterpretationof this exam may alter care of Patient. Yes TECHNIQUE: Axial contiguous sections were obtained through the chest viahelical acquisition after intravenous contrast administration on 11/24/2018 at . PE protocol was performed. Coronaland sagittal reconstructions [...] this report, please contact the number below. Manuel Martin MD IMG OUTSIDE INTERPRE TATION ORDERABLES * Heparin (unfractionated) Level (11/29/2018 4:56 AM EDT) UF Heparin 0.34 IU/mL [facility] Comment: Guidelines for therapeutic unfractionated heparin levels are summarized below. Heparin (Anti-Xa) levels should be determined in a plasma sample that has been drawn 6 hours after a dose change i.e., steady-state has been reached. DRUG ?Dosing Schedule ? Target Peak Steady-State ?Heparin (Anti-Xa) Levels (Units/mL) Unfractionated ?Continuous infusion ?0.3-0.7 Heparin ?0.3-0.6 for some neurology indications Blood specimen (specimen) 11/29/2018 4:56 AM EDT 11/29/2018 5:52 AM EDT Narrative Resulting Agency Comment Spec In Lab Manuel Martin MD HEMATOLOGY ORDERABLE S [facility] [place] [address] * (ABNORMAL) Differential, Automated (11/29/2018 4:56 AM EDT) Neutrophil % 81.0 % [facility] Neutrophil Absolute 9.37(H) 1.70 - 6.10 x10(3)/mc L [facility] Lymph % 6.6 % [facility] Lymphocytes Abs 0.8(L) 0.9 - 3.2 x10(3)/mc L [facility] Monocyte % 11.6 % [facility] Monocyte Abs 1.3(H) 0.3 - 0.9 x10(3)/mc L [facility] Eos % 0.0 % [facility] Eosinophils Abs 0.0 0.0 - 0.4 x10(3)/mc L [facility] Basophil % 0.2 % [facility] Baso Absolute 0.0 0.0 - 0.1 x10(3)/mc L [facility] Immature Gran % 0.60 % [facility] Comment: Immature granulocytes(IG's)percentage and absolute count will include metamyelocytes, myelocytes, and promyelocytes. Blood smears from CBCs yielding IG's will be scanned manually for concordance. If this scan disagrees with the automated IG or if promyelocytes are noted, a manual differential will be performed. Immature Gran Absolute 0.07(H) 0.00 - 0.04 x10(3)/mc L [facility] Blood specimen (specimen) 11/29/2018 4:56 AM EDT 11/29/2018 5:52 AM EDT Narrative Resulting Agency Comment Spec In Lab Aydin Hidalgo MD HEMATOLOGY ORDERABLE S [facility] [place] [address] * (ABNORMAL) Hemogram (11/29/2018 4:56 AM EDT) White Blood Cell 11.6(H) 4.0 - 9.5 x10(3)/[facility] Red Blood Cell 3.95(L) 4.58 - 5.54 x10(6)/[facility] Hemoglobin 12.4(L) 13.7 - 16.5 gm/dL [facility] Hematocrit 36.2(L) 40.5 - 48.5 % [facility] Mean Cell Volume 91.6 82.9 - 93.1 fL [facility] Mean Cell Hemoglobin 31.4 27.5 - 32.1 pg [facility] Mean Cell Hemoglobin Concentration 34.3 32.0 - 35.7 gm/dL [facility] Platelet 107(L) 145 - 357 x10(3)/[facility] RDW Standard Deviation 41.1 36.0 - 45.0 [facility] RDW coefficient of variation 12.3 11.4 - 13.8 % [facility] Mean Platelet Volume 12.5 7.6 - 12.9 fL [facility] NRBC% auto 0.0 % [facility] NRBC Absolute 0.000 0.000 - 0.000 x10(3)/[facility] Blood specimen (specimen) 11/29/2018 4:56 AM EDT 11/29/2018 5:52 AM EDT Narrative Resulting Agency Comment Spec In Lab Aydin Hidalgo MD HEMATOLOGY ORDERABLE S Performing Organization Address [facility] Co de Phone Number [facility] [place] [address] * (ABNORMAL) Phosphorus (11/29/2018 4:56 AM EDT) Phosphorus 2.0(L) 2.5 - 4.5 mg/dL [facility] Blood specimen (specimen) 11/29/2018 4:56 AM EDT 11/29/2018 5:52 AM EDT Narrative Resulting Agency Comment Spec In Lab Manuel Martin MD CHEMISTRY ORDERABLES Performing Organization Address [facility] de Phone Number [facility] [place] [address] * Magnesium (11/29/2018 4:56 AM EDT) Magnesium 0.88 0.69 - 1.07 mmol/L [facility] Blood specimen (specimen) 11/29/2018 4:56 AM EDT 11/29/2018 5:52 AM EDT Narrative Resulting Agency Comment Spec In Lab Manuel Martin MD CHEMISTRY ORDERABLES Performing Organization Address [facility] de Phone Number [facility] [place] [address] * (ABNORMAL) BMP w/fasting Glucose (11/29/2018 4:56 AM EDT) Glucose Fasting 112(H) 65 - 99 mg/dL [facility] Comment: ?Fasting* Glucose Interpretive Criteria Normal ?65-99 mg/dL Impaired Fasting glucose ?100-125 mg/dL Consistent with Diabetes Mellitus ? >or= 126 mg/dL *Fasting is defined as no caloric intake for at least 8 hours In the absence of unequivocal hyperglycemia a plasma glucose value of >or= 126 mg/dL should be repeated on a subsequent day. Diagnosis and Classification of Diabetes Mellitus, Position Statement from the [place] [employer]. ??Diabetes Care, Volume 33, Supplement 1, Sep 2009 Blood Urea Nitrogen 12 10 - 20 mg/dL [facility] Creatinine 1.49 0.80 - 1.50 mg/dL [facility] Sodium 137 135 - 145 mmol/L [facility] Potassium 3.8 3.5 - 5.0 mmol/L [facility] [...] mmol/L [facility] Anion Gap 11 5 - 15 mmol/L [facility] Calcium 7.8(L) 8.5 - 10.5 mg/dL [facility] Est Glomerular Filtration Rate 51(L) >=60 mL/min/1. 73 m?? [facility] Comment: The eGFR was calculated using the CKD-EPI equation. As with all creatinine based estimates of kidney function, eGFR values calculated with the CKD-EPI equation are not accurate in patients with acute kidney failure, extremes of body mass or the acutely ill. [email or web address] eGFR 59(L) >=60 mL/min/1. 73 m?? [facility] Comment: The eGFR was calculated using the CKD-EPI equation. As with all creatinine based estimates of kidney function, eGFR values calculated with the CKD-EPI equation are not accurate in patients with acute kidney failure, extremes of body mass or the acutely ill. [email or web address] Blood specimen (specimen) 11/29/2018 4:56 AM EDT 11/29/2018 5:52 AM EDT Narrative Resulting Agency Comment Spec In Lab Manuel Martin MD CHEMISTRY ORDERABLES Performing Organization Address City/[facility]/ZIP Co de Phone Number [facility] [place] [address] * (ABNORMAL) CRP, acute inflammation (11/29/2018 4:56 AM EDT) C-Reactive Protein 118.1(H) <=4.9 mg/L [facility] Blood specimen (specimen) 11/29/2018 4:56 AM EDT 11/29/2018 5:52 AM EDT Narrative Resulting Agency Comment Spec In Lab Manuel Martin MD CHEMISTRY ORDERABLES Performing Organization Address [facility] Co de Phone Number [facility] [place] [address] * (ABNORMAL) Sedimentation rate (11/29/2018 4:56 AM EDT) Sedimentation Rate Automated 24(H) 0 - 15 mm/hr [facility] Blood specimen (specimen) 11/29/2018 4:56 AM EDT 11/29/2018 5:52 AM EDT Narrative Resulting Agency Comment Spec In Lab Manuel Martin MD HEMATOLOGY ORDERABLE S Performing Organization Address [facility] Co de Phone Number [facility] [place] [address] * (ABNORMAL) Uric acid (11/28/2018 11:04 PM EDT) Uric Acid 3.1(L) 3.5 - 8.5 mg/dL [facility] Blood specimen (specimen) 11/28/2018 11:04 PM EDT 11/28/2018 11:28 PM EDT Narrative Resulting Agency Comment Spec In Lab Manuel Martin MD CHEMISTRY ORDERABLES Performing Organization Address City/[facility]/ZIP Co de Phone Number [facility] [place] [address] * Heparin (unfractionated) Level (11/28/2018 11:04 PM EDT) UF Heparin 0.41 IU/mL [facility] Comment: Guidelines for therapeutic unfractionated heparin levels are summarized below. Heparin (Anti-Xa) levels should be determined in a plasma sample that has been drawn 6 hours after a dose change i.e., steady-state has been reached. DRUG ?Dosing Schedule ? Target Peak Steady-State ?Heparin (Anti-Xa) Levels (Units/mL) Unfractionated ?Continuous infusion ?0.3-0.7 Heparin ?0.3-0.6 for some neurology indications Blood specimen (specimen) 11/28/2018 11:04 PM EDT 11/28/2018 11:28 PM EDT Narrative Resulting Agency Comment Spec In Lab Manuel Martin MD HEMATOLOGY ORDERABLE S Performing Organization Address [facility] Co de Phone Number [facility] [place] [address] * Blood culture (11/28/2018 11:04 PM EDT) Pathologist [facility] Blood Culture No growth at 5 days. [facility] Blood specimen (specimen) 11/28/2018 11:04 PM EDT 11/29/2018 12:54 AM EDT Comment:R HAND Narrative Resulting Agency Comment Spec In Lab Manuel Martin MD MICROBIOLOGY - BLOOD ORDERABLES Performing Organization Address [facility] Co de Phone Number [facility] [place] [address] * XR Chest PA & Lateral (Generic) (11/28/2018 9:30 PM EDT) Anatomical Region Laterality Modality Chest N/A Digital Radiogra phy Impressions 11/28/2018 10:03 PM EDT Small left pleural effusion with associated left lower lobe opacities favored to represent compressive atelectasis. Thank you for letting us participate in the care of this patient. For questions regarding this report, please contact the number below. ? Electronically signed by: YASMIN Ryder [facility] ([phone]), at 11/28/2018 10:03 PM Narrative 11/28/2018 10:03 PM EDT EXAMINATION: XR CHEST PA AND LATERAL (GENERIC) CLINICAL HISTORY: 58 yr old male with new onset fever, was treated for PNA prior to this admission. TECHNIQUE: PA and lateral views of the chest COMPARISON: Chest CT from November 24, 2018 FINDINGS: Lung volumes are low. There is a small left effusion with adjacent left basilar opacity most compatible with associated atelectasis. Minimal right basilar atelectasis. Cardiac silhouette and pulmonary vasculature are normal. No interval osseous changes. Procedure Note Atiya Fan MD - 11/28/2018 EXAMINATION: XR CHEST PA AND LATERAL (GENERIC) CLINICAL HISTORY: 58 yr old male with new onset fever, was treated for PNAprior to this admission. TECHNIQUE: PA and lateral views of the chest COMPARISON: Chest CT from November 24, 2018 FINDINGS: Lung volumes are low. There is a small left effusion with adjacent leftbasilar opacity most compatible with associated atelectasis. Minimal rightbasilar atelectasis. Cardiac silhouette and pulmonary vasculature are normal. No interval osseous changes. IMPRESSION Small left pleural effusion with associated left lower lobe opacitiesfavored to represent compressive atelectasis. Thank you for letting us participate in the care of this patient. Forquestions regarding this report, please contact the number below. Electronically signed by: Atiya Fan [facility]([phone]), at 11/28/2018 10:03 PM Manuel Martin MD IMG DX ORDERABLES * MRI Angiogram Abdomen wwo Contrast (11/28/2018 5:26 PM EDT) Anatomical Region Laterality Modality Abdomen Magnetic Resonan ce Impressions 11/29/2018 8:10 AM EDT 1. ??Critical stenosis at the origin of the left renal artery, with segmental areas of decreased perfusion/nonenhancement predominantly involving the mid to upper pole as well as wedge-shaped segmental focus in the lower pole representing renal infarcts. 2. ??Small to moderate ascites. I have personally reviewed the image(s) and the residents interpretation and agree with the findings, Atiya Fan at 11/29/2018 8:10 AM Thank you for letting us participate in the care of this patient. For questions regarding this report, please contact the number below. ? Electronically signed by: Atiya Fan [facility] ([phone]), at 11/29/2018 8:10 AM Narrative 11/29/2018 8:10 AM EDT EXAMINATION: MRI ANGIOGRAM ABDOMEN WWO CONTRAST CLINICAL HISTORY: evaluation for renal perfusion TECHNIQUE: Multiplanar, multisequence MRA of the abdomen was performed with imaging obtained prior to and following intravenous administration of 13ml Dotarem. COMPARISON: CT abdomen and pelvis dated November 26, 2018. CT angiogram of pulmonary arteries dated November 24, 2018. FINDINGS: Vasculature: Abdominal aorta: Normal caliber abdominal aorta. No aneurysm or stenosis. Celiac axis: Patent. SMA: Patent. Right renal artery: Patent Left renal artery: Critical stenosis at the origin. ANT: Patent. Right Common iliac: Patent Right internal iliac: Patent Right external iliac: Patent Left common iliac: Patent Left internal iliac: Patent Left external iliac: Patent Lower chest: Bilateral lower lobe subsegmental atelectasis and trace effusions. Liver: Normal signal. Few punctate foci of T2 prolongation in the right hepatic lobe consistent with tiny hepatic cysts. Bile ducts: There is no hepatic bile duct dilation. CBD is normal. Images up to 5 mm. Gallbladder: Normal distention. No calcified gallstones. Normal caliber wall. Pancreas: Normal. No pancreatic duct dilation. Spleen: Normal. Adrenals: Normal. Kidneys: Decreased cortical enhancement of the superior two thirds of the left kidney on the delayed enhancement series consistent with parenchymal infarctions. Additional segmental area of low-attenuation at the lower pole of the left kidney. Normal signal characteristics of the right kidney. Lymph nodes: No enlarged lymph nodes. Bowel: No abnormal bowel dilation or enhancement. Peritoneum: Small to moderate volume ascites. Marrow Signal: Normal. Procedure Note Atiya Fan MD - 11/29/2018 EXAMINATION: MRI ANGIOGRAM ABDOMEN WWO CONTRAST CLINICAL HISTORY: evaluation for renal perfusion TECHNIQUE: Multiplanar, multisequence MRA of the abdomen was performedwith imaging obtained prior to and following intravenous administration of 13ml Dotarem. COMPARISON: CT abdomen and pelvis dated November 26, 2018. CT angiogram of pulmonary arteries dated November 24, 2018. FINDINGS: Vasculature: Abdominal aorta: Normal caliber abdominal aorta. No aneurysm orstenosis. Celiac axis: Patent. SMA: Patent. Right renal artery: Patent Left renal artery: Critical stenosis at the origin. ANT: Patent. Right Common iliac: Patent Right internal iliac: Patent Right external iliac: Patent Left common iliac: Patent Left internal iliac: Patent Left external iliac: Patent Lower chest: Bilateral lower lobe subsegmental atelectasis and traceeffusions. Liver: Normal signal. Few punctate foci of T2 prolongation in the righthepatic lobe consistent with tiny hepatic cysts. Bile ducts: There is no hepatic bile duct dilation. CBD is normal. Imagesup to 5 mm. Gallbladder: Normal distention. No calcified gallstones. Normal caliberwall. Pancreas: Normal. No pancreatic duct dilation. Spleen: Normal. Adrenals: Normal. Kidneys: Decreased cortical enhancement of the superior two thirds of theleft kidney on the delayed enhancement series consistent with parenchymal infarctions. Additional segmental area of low-attenuation at the lowerpole of the left kidney. Normal signal characteristics of the right kidney. Lymph nodes: No enlarged lymph nodes. Bowel: No abnormal bowel dilation or enhancement. Peritoneum: Small to moderate volume ascites. Marrow Signal: Normal. IMPRESSION 1. Critical stenosis at the origin of the left renal artery, withsegmental areas of decreased perfusion/nonenhancement predominantly involving themid to upper pole as well as wedge-shaped segmental focus in the lower pole representing renal infarcts. 2. Small to moderate ascites. I have personally reviewed the image(s) and the residents interpretationand agree with the findings, Atiya Fan at 11/29/2018 8:10 AM Thank you for letting us participate in the care of this patient. Forquestions regarding this report, please contact the number below. Electronically signed by: Atiya Fan [facility]([phone]), at 11/29/2018 8:10 AM Ernie Garrett MD IMG MRI ORDERABLES * ECHO COMPLETE (11/28/2018 4:00 PM EDT) EF 63 HEARTLAB SYSTEM Anatomical Region Laterality Modality Other 11/28/2018 Narrative 11/28/2018 4:16 PM EDT Procedure: ?Transthoracic Echocardiogram Patient: ?SHELLY Nino ? (Age): 1960(58y) Med Rec#: ? [id number] ?Sex: ?M ? Site Loc: ? [facility] ?Ht / Wt: ??170(cm)/66(kg) Pt. Loc: ?Adult Floor ? BSA: ?1.77 Study Date: ?? 11/28/2018 ?Pt. Type: Inpatient Tape: ? Referring: Manuel Martin Reading: Greg Causey ([id number]) Bottle Machine Operator: Iam Forman [facility] Bottle Machine Operator 2: Aydin Clark [facility] Diagnosis: *Atherosclerosis of renal artery (I70.1) BP: ? 145/83 SUMMARY: 1. The left ventricular chamber size is normal. Left ventricular wall thickness is normal. There is normal global left ventricular systolic function. The quantitative left ventricular ejection fraction by biplane Brown's method is 63%. There are no left ventricular segmental wall motion abnormalities. Doppler assessment is consistent with normal left sided filling pressure. 2. The right ventricle is probably normal in size. Right ventricular global systolic function is normal. The estimated pulmonary artery systolic pressure is 43 mmHg. The estimated right atrial pressure is 15 mmHg. The inferior vena cava appears dilated. 3. There is no evidence of a patent foramen ovale by either color Doppler or agitated saline injection. There is normal bi-atrial size. 4. There is no hemodynamically significant valve disease. 5. See report above for remainder of findings. Findings ? : Study Quality: ? Adequate Left Ventricle: ? The left ventricular chamber size is normal. ?Left ventricular wall thickness is normal. ?There is no evidence of LVOT obstruction. ?No ventricular septal defect is visualized. ?There is normal global left ventricular systolic function. ?The quantitative left ventricular ejection fraction by biplane Brown's method is 63%. ?There are no left ventricular segmental wall motion abnormalities. ?Left ventricular diastolic function is normal. Left Atrium: ? The left atrium is normal in size. ?There is no evidence of a patent foramen ovale by either color Doppler or agitated saline injection. Right Ventricle: ? The right ventricle is probably normal in size. ?Right ventricular global systolic function is normal. ?The estimated pulmonary artery systolic pressure is 43 mmHg. ?The estimated right atrial pressure is 15 mmHg. Right Atrium: ? The right atrium is normal in size. Aortic Valve: ? The aortic valve is tricuspid. ?The aortic valve leaflets are mildly thickened. ?Systolic excursion of the aortic valve is normal. ?There is no evidence of aortic valve stenosis. ?The calculated pressure half-time is 606 msec. ?Mild (1+/4+) aortic valve regurgitation is present. Mitral Valve: ? The mitral valve appears normal in structure and function. ?There is mild (1+/4+) mitral regurgitation present. Tricuspid Valve: ? The tricuspid valve appears normal in structure and function. ?There is mild (1+/4+) tricuspid regurgitation present. Pulmonic Valve: ? The pulmonic valve appears normal in structure and function. ?There is trace pulmonic regurgitation present. Pericardium: ? The pericardium appears normal and there is no evidence of a pericardial effusion. Aorta: ? The aortic root is normal in size. ?The ascending aorta is normal in size. Venous: ? The inferior vena cava appears dilated. ?There is less than 50% respiratory change in the inferior vena cava dimension consistent with elevated right atrial pressure. Misc: ? Two-dimensional echo, spectral Doppler and color Doppler performed. Chambers 2D ?Value ?Units (Range) ? IVSd (2D) ? 0.9 ?cm ? LVPWd (2D) ?1 ?cm ? IVS:LVPW ratio (2D) 0.9 ?ratio ? RWT (2D) ?0.4 ?ratio ? RWT PW (2D) ? 0.4 ?ratio ? LVIDd (2D) ?4.6 ?cm ? LVIDs (2D) ?3.5 ?cm ? LVIDd (2D) index ?2.6 ?cm/m2 ? LVIDs (2D) index ?2 ?cm/m2 ? LV FS (2D) ?24 ? % ? EF Teichholz (2D) ?? 47 ? % ? Ao root diameter (2D3.3 ?cm (2.1 - 3.6) ? Ascending Ao ?3.5 ?cm (2 - 3.5) ? Volumes/Mass ?Value ?Units (Range) ? LA Area 4 CH ?15.1 ? cm2 (<21) ? LA ESV BP (A/L) inde35 ? ml/m2 ? RA AREA 4CH ? 17.1 ? cm2 ? LV ESV SP 4CH (MOD) 33.1 ? ml ? LV ESV SP 2CH (MOD) 40.8 ? ml ? LV EDV BP ? 100.8 ?ml ? LV ESV BP ? 36.9 ? ml ? LV EDV BP index ? 56.9 ? ml/m2 ? LV ESV BP index ? 20.9 ? ml/m2 ? BP EF (MOD) ? 63 ? % ? LV mass (2D) ?142.9 ?g ? LV mass (2D) index ??80.7 ? g/m2 ? Diastolic/Systolic Function ?Value ?Units (Range) ? MV E-wave Vmax ?0.9 ?m/sec ? MV deceleration ouvr829.6 ?msec ? MV A-wave Vmax ?0.5 ?m/sec ? MV E:A ratio ?1.7 ?ratio ? LV septal e' Vmax ?? 0.1 ?m/sec ? LV lateral e' Vmax ??0.1 ?m/sec ? LV average e' Vmax ??0.1 ?m/sec ? LV E:e' septal ratio8.2 ?ratio ? LV E:e' lateral rati6.9 ?ratio ? LV average E:e' rati7.5 ?ratio ? Aortic Valve ?Value ?Units (Range) ? AR PHT ?606 ?msec ? AR peak gradient ?39.4 ? mmHg ? Tricuspid Valve ?Value ?Units (Range) ? TR Vmax ? 2.6 ?m/sec ? TR peak gradient ?27.9 ? mmHg ? RAP ? 15 ? mmHg ? RVSP ?43 ? mmHg ? Wall Motion: Segment Name ?Rest ? Base-Anteroseptal ?? Normal ? Base-Anterior ? Normal ? Base-Anterolateral ??Normal ? Base-Posterolateral Normal ? Base-Inferior ? Normal ? Base-Inferoseptal ?? Normal ? Mid-Anteroseptal ?Normal ? Mid-Anterior ?Normal ? Mid-Anterolateral ?? Normal ? Mid-Posterolateral ??Normal ? Mid-Inferior ?Normal ? Mid-Inferoseptal ?Normal ? [place]-Septal ? Normal ? [place]-Anterior ? Normal ? [place]-Lateral ?Normal ? [place]-Inferior ? Normal ? [place]-Tip ?Normal ? This report has been electronically signed by: Greg Causey MD ? 11/28/2018 16:15:06 Images reviewed and interpretation verified [facility] Cardiac Ultrasound Laboratory Procedure Note Greg Causey MD - 11/28/2018 Procedure: Transthoracic Echocardiogram Patient: SHELLY Nino (Age): 1960(58y) Med Rec#: [id number] Sex: M Site Loc: [facility] Ht / Wt: 170(cm)/66(kg) Pt. Loc: Adult Floor BSA: 1.77 Study Date: 11/28/2018 Pt. Type: Inpatient Tape: Referring: Manuel Martin Reading: Greg Causey ([id number]) Bottle Machine Operator: Iam Forman [facility] Bottle Machine Operator 2: Aydin Clark [facility] Diagnosis: *Atherosclerosis of renal artery (I70.1) BP: 145/83 SUMMARY: 1. The left ventricular chamber size is normal. Left ventricular wall thickness is normal. There is normal global left ventricular systolic function. The quantitative left ventricular ejection fraction by biplane Brown's method is 63%. There are no left ventricular segmental wall motion abnormalities. Doppler assessment is consistent with normal left sided filling pressure. 2. The right ventricle is probably normal in size. Right ventricular global systolic function is normal. The estimated pulmonary artery systolic pressure is 43 mmHg. The estimated right atrial pressure is 15 mmHg. The inferior vena cava appears dilated. 3. There is no evidence of a patent foramen ovale by either color Doppler or agitated saline injection. There is normal bi-atrial size. 4. There is no hemodynamically significant valve disease. 5. See report above for remainder of findings. Findings : Study Quality: Adequate Left Ventricle: The left ventricular chamber size is normal. Left ventricular wall thickness is normal. There is no evidence of LVOT obstruction. No ventricular septal defect is visualized. There is normal global left ventricular systolic function. The quantitative left ventricular ejection fraction by biplane Brown's method is 63%. There are no left ventricular segmental wall motion abnormalities. Left ventricular diastolic function is normal. Left Atrium: The left atrium is normal in size. There is no evidence of a patent foramen ovale by either color Doppler or agitated saline injection. Right Ventricle: The right ventricle is probably normal in size. Right ventricular global systolic function is normal. The estimated pulmonary artery systolic pressure is 43 mmHg. The estimated right atrial pressure is 15 mmHg. Right Atrium: The right atrium is normal in size. Aortic Valve: The aortic valve is tricuspid. The aortic valve leaflets are mildly thickened. Systolic excursion of the aortic valve is normal. There is no evidence of aortic valve stenosis. The calculated pressure half-time is 606 msec. Mild (1+/4+) aortic valve regurgitation is present. Mitral Valve: The mitral valve appears normal in structure and function. There is mild (1+/4+) mitral regurgitation present. Tricuspid Valve: The tricuspid valve appears normal in structure and function. There is mild (1+/4+) tricuspid regurgitation present. Pulmonic Valve: The pulmonic valve appears normal in structure and function. There is trace pulmonic regurgitation present. Pericardium: The pericardium appears normal and there is no evidence of a pericardial effusion. Aorta: The aortic root is normal in size. The ascending aorta is normal in size. Venous: The inferior vena cava appears dilated. There is less than 50% respiratory change in the inferior vena cava dimension consistent with elevated right atrial pressure. Misc: Two-dimensional echo, spectral Doppler and color Doppler performed. Chambers 2D Value Units (Range) IVSd (2D) 0.9 cm LVPWd (2D) 1 cm IVS:LVPW ratio (2D) 0.9 ratio RWT (2D) 0.4 ratio RWT PW (2D) 0.4 ratio LVIDd (2D) 4.6 cm LVIDs (2D) 3.5 cm LVIDd (2D) index 2.6 cm/m2 LVIDs (2D) index 2 cm/m2 LV FS (2D) 24 % EF Teichholz (2D) 47 % Ao root diameter (2D3.3 cm (2.1 - 3.6) Ascending Ao 3.5 cm (2 - 3.5) Volumes/Mass Value Units (Range) LA Area 4 CH 15.1 cm2 (<21) LA ESV BP (A/L) inde35 ml/m2 RA AREA 4CH 17.1 cm2 LV ESV SP 4CH (MOD) 33.1 ml LV ESV SP 2CH (MOD) 40.8 ml LV EDV BP 100.8 ml LV ESV BP 36.9 ml LV EDV BP index 56.9 ml/m2 LV ESV BP index 20.9 ml/m2 BP EF (MOD) 63 % LV mass (2D) 142.9 g LV mass (2D) index 80.7 g/m2 Diastolic/Systolic Function Value Units (Range) MV E-wave Vmax 0.9 m/sec MV deceleration hgna699.6 msec MV A-wave Vmax 0.5 m/sec MV E:A ratio 1.7 ratio LV septal e' Vmax 0.1 m/sec LV lateral e' Vmax 0.1 m/sec LV average e' Vmax 0.1 m/sec LV E:e' septal ratio8.2 ratio LV E:e' lateral rati6.9 ratio LV average E:e' rati7.5 ratio Aortic Valve Value Units (Range) AR PHT 606 msec AR peak gradient 39.4 mmHg Tricuspid Valve Value Units (Range) TR Vmax 2.6 m/sec TR peak gradient 27.9 mmHg RAP 15 mmHg RVSP 43 mmHg Wall Motion: Segment Name Rest Base-Anteroseptal Normal Base-Anterior Normal Base-Anterolateral Normal Base-Posterolateral Normal Base-Inferior Normal Base-Inferoseptal Normal Mid-Anteroseptal Normal Mid-Anterior Normal Mid-Anterolateral Normal Mid-Posterolateral Normal Mid-Inferior Normal Mid-Inferoseptal Normal [place]-Septal Normal [place]-Anterior Normal [place]-Lateral Normal [place]-Inferior Normal [place]-Tip Normal This report has been electronically signed by: Greg Causey MD 11/28/2018 16:15:06 Images reviewed and interpretation verified [facility] Cardiac Ultrasound Laboratory Manuel Martin MD ECHO ORDERABLES * Heparin (unfractionated) Level (11/28/2018 2:59 PM EDT) UF Heparin 0.29 IU/mL [facility] Comment: Guidelines for therapeutic unfractionated heparin levels are summarized below. Heparin (Anti-Xa) levels should be determined in a plasma sample that has been drawn 6 hours after a dose change i.e., steady-state has been reached. DRUG ?Dosing Schedule ? Target Peak Steady-State ?Heparin (Anti-Xa) Levels (Units/mL) Unfractionated ?Continuous infusion ?0.3-0.7 Heparin ?0.3-0.6 for some neurology indications Blood specimen (specimen) 11/28/2018 2:59 PM EDT 11/28/2018 3:31 PM EDT Narrative Resulting Agency Comment Spec In Lab Manuel Martin MD HEMATOLOGY ORDERABLE S [facility] [place] [address] * ABORH Recheck Status (11/28/2018 12:21 PM EDT) ABORH Recheck Order Order Placed [facility] ABORH Type Recheck Complete [facility] Blood specimen (specimen) 11/28/2018 12:21 PM EDT 11/28/2018 12:27 PM EDT Narrative Resulting Agency Comment Spec In Lab Aydin Hidalgo MD BLOOD BANK LAB ORDER MARLEEN [facility] [place] [address] * Antibody screen (11/28/2018 12:21 PM EDT) Ab Screen Interp Negative [facility] Expires at [id number] on: 12/01/2018 [facility] Blood specimen (specimen) 11/28/2018 12:21 PM EDT 11/28/2018 12:27 PM EDT Narrative Resulting Agency Comment Spec In Lab Aydin Hidalgo MD BLOOD BANK LAB ORDER MARLEEN [facility] [place] [address] * ABO/Rh Typing (11/28/2018 12:21 PM EDT) ABORH Type O Pos [facility] Blood specimen (specimen) 11/28/2018 12:21 PM EDT 11/28/2018 12:27 PM EDT Narrative Resulting Agency Comment Spec In Lab Aydin Hidalgo MD BLOOD BANK LAB ORDER MARLEEN [facility] [place] [address] * Potassium (11/28/2018 11:37 AM EDT) Potassium 4.0 3.5 - 5.0 mmol/L [facility] Comment: Please note: ??Patients with WBC >100,000 may have falsely elevated Potassium levels. ??For accurate Potassium quantification in these patients send serum separator tube (gold top) for subsequent determinations. ??Contact the Clinical Chemistry Laboratory if there are any questions. Blood specimen (specimen) 11/28/2018 11:37 AM EDT 11/28/2018 11:59 AM EDT Narrative Resulting Agency Comment Spec In Lab Manuel Martin MD CHEMISTRY ORDERABLES Performing Organization Address City/[facility]/ZIP Co de Phone Number [facility] [place] [address] * (ABNORMAL) Urinalysis Microscopic Exam (11/28/2018 9:24 AM EDT) RBC, Urine 2 0 - 3 /HPF [facility] WBC, Urine 1 0 - 3 /HPF [facility] Bacteria, Urine Rare(A) None /HPF [facility] Urine specimen obtained by clean catch procedure (specimen) 11/28/2018 9:24 AM EDT 11/28/2018 9:45 AM EDT Narrative Resulting Agency Comment Spec In Lab Aydin Hidalgo MD URINE ORDERABLES Performing Organization Address City/[facility]/ZIP Co de Phone Number [facility] [place] [address] * (ABNORMAL) Urinalysis with reflex Culture (11/28/2018 9:24 AM EDT) Glucose, Urine Dipstick Negative Negative mg/dL [facility] Protein, Urine Dipstick 100(A) Negative mg/dL [facility] Bilirubin, [...] [facility] pH, Urn (dipstick) 6.0 5.0 - 8.0 [facility] Blood, Urine Dipstick Large(A) Negative mg/dL [facility] Ketone, Urine Dipstick 5(A) Negative mg/dL [facility] Nitrite, Urine Dipstick Negative Negative [facility] Leukocytes, Urine Dipstick Negative Negative mcL [facility] Appearance, Urine Dipstick Clear Clear [facility] Specific Prince Urine Automated 1.020 1.002 - 1.030 [facility] Color, Urine Dipstick Yellow Yellow [facility] Reflex to Culture No [facility] Urine specimen obtained by clean catch procedure (specimen) 11/28/2018 9:24 AM EDT 11/28/2018 9:45 AM EDT Narrative Resulting Agency Comment Spec In Lab Manuel Martin MD URINE ORDERABLES Performing Organization Address [facility]/ZIP Co de Phone Number [facility] [place] [address] * Blood culture (11/28/2018 7:00 AM EDT) Blood Culture No growth at 5 days. [facility] Blood specimen (specimen) 11/28/2018 7:00 AM EDT 11/28/2018 7:43 AM EDT Narrative Resulting Agency Comment Spec In Lab Manuel Martin MD MICROBIOLOGY - BLOOD ORDERABLES Performing Organization Address City/[facility]/ZIP Co de Phone Number [facility] [place] [address] * Blood culture (11/28/2018 6:56 AM EDT) Blood Culture No growth at 5 days. [facility] Blood specimen (specimen) 11/28/2018 6:56 AM EDT 11/28/2018 7:43 AM EDT Narrative Resulting Agency Comment Spec In Lab Manuel Martin MD MICROBIOLOGY - BLOOD ORDERABLES Performing Organization Address City/[facility]/ZIP Co de Phone Number [facility] [place] [address] * Complement Alternate Path (11/28/2018 6:56 AM EDT) [facility] Complement Alt (JANUARY) 81 >=46 % normal [facility] Comment: ADDITIONAL INFORMATION This test was developed and its performance characteristics determined by [facility] in a manner consistent with CLIA requirements. This test has not been cleared or approved by the U.S. Food and Drug Administration. Test Performed by: [facility] - [address] [address] Blood specimen (specimen) 11/28/2018 6:56 AM EDT 11/28/2018 9:40 AM EDT Narrative Resulting Agency Comment Spec In Lab Manuel Martin MD LAB SEND OUT ORDERAB LES Performing Organization Address [facility]/ZIP Co de Phone Number [facility] [place] [address] * Complement, Total (11/28/2018 6:56 AM EDT) [facility] Complement, Total >75 30 - 75 unit/mL [facility] Comment: Test Performed by: [facility] - [address] [address] Blood specimen (specimen) 11/28/2018 6:56 AM EDT 11/28/2018 9:40 AM EDT Narrative Resulting Agency Comment Spec In Lab Manuel Martin MD CHEMISTRY ORDERABLES Performing Organization Address City/[facility]/ZIP Co de Phone Number [facility] [place] [address] * Cytoplasmic Neutrophilic Ab (11/28/2018 6:56 AM EDT) [facility] C-Anca (JANUARY) Negative Negative [facility] Comment: Test Performed by: [facility] - [address] [address] P-Anca (JANUARY) Negative Negative [facility] Comment: Negative for cANCA and pANCA patterns by immunofluorescence. ADDITIONAL INFORMATION This test was developed and its performance characteristics determined by [facility] in a manner consistent with CLIA requirements. This test has not been cleared or approved by the U.S. Food and Drug Administration. Test Performed by: [facility] - [facility] [address] [place] [address] Blood specimen (specimen) 11/28/2018 6:56 AM EDT 11/28/2018 8:58 AM EDT Narrative Resulting Agency Comment Spec In Lab Manuel Martin MD LAB SEND OUT ORDERAB LES Performing Organization Address [facility]/ZIP Co de Phone Number [facility] [place] [address] * Hepatitis C RNA, quantitative, PCR (11/28/2018 6:56 AM EDT) HCV Viral Load <12 IU/mL [facility] HCV Viral Load Result: <12 IU/mL(Target Not Detected) Indication for Study: Hepatitis C Infection Analysis: The [employer] RealTime HCV assay is an in vitro reverse preparing box tender polymerase chain reaction (RT-PCR)for the quantitation of hepatitis C viral (HCV) RNA in human serum or plasma (EDTA) from HCV-infected individuals. Sample: plasma (0.7 mL minimum volume) Method: [employer] RealTime HCV Assay Linear Range: 12 IU/mL - 100,000,000IU/mL Note: The [employer] RealTime HCV Assay has been approved by the U.S. Food and Drug Administration. [facility] Comment: [VERIFIED DATE]11.29.18 Verified By:Pam Boone (Electronic Signature) Blood specimen (specimen) 11/28/2018 6:56 AM EDT 11/28/2018 10:38 AM EDT Narrative Resulting Agency Comment Spec In Lab Manuel Martin MD MOLECULAR ORDERABLES Performing Organization Address City/[facility]/ZIP Co de Phone Number [facility] [place] [address] * Hepatitis C Antibody (11/28/2018 6:56 AM EDT) Hepatitis C Antibody Negative Negative [facility] Blood specimen (specimen) 11/28/2018 6:56 AM EDT 11/28/2018 7:11 AM EDT Narrative Resulting Agency Comment Spec In Lab Manuel Martin MD CHEMISTRY ORDERABLES [facility] [place] [address] * Hepatitis B Surface Antigen (11/28/2018 6:56 AM EDT) Hepatitis B Surface Antigen Negative Negative [facility] Blood specimen (specimen) 11/28/2018 6:56 AM EDT 11/28/2018 7:11 AM EDT Narrative Resulting Agency Comment Spec In Lab Manuel Martin MD CHEMISTRY ORDERABLES Performing Organization Address City/[facility]/ZIP Co de Phone Number [facility] [place] [address] * Hepatitis B Surface Antibody (11/28/2018 6:56 AM EDT) Hepatitis B Surface Antibody, Quantitative <3.5 IU/L [facility] Comment: HepB Surface Ab Quant: Unvaccinated: < 8.5 IU/L Vaccinated: > 11.5 IU/L Hepatitis B Surface Antibody Negative [facility] Comment: Patient is presumed to be not vaccinated or immune to HBV infection. Expected Results: Vaccinated: Positive Unvaccinated: Negative Blood specimen (specimen) 11/28/2018 6:56 AM EDT 11/28/2018 7:11 AM EDT Narrative Resulting Agency Comment Spec In Lab Manuel Martin MD CHEMISTRY ORDERABLES Performing Organization Address City/[facility]/ZIP Co de Phone Number [facility] [place] [address] * Hepatitis B Core Antibody, Total (11/28/2018 6:56 AM EDT) Hepatitis B Core Antibody Negative Negative [facility] Blood specimen (specimen) 11/28/2018 6:56 AM EDT 11/28/2018 7:11 AM EDT Narrative Resulting Agency Comment Spec In Lab Manuel Martin MD CHEMISTRY ORDERABLES [facility] [place] [address] * Hepatitis B Core Antibody, IgM (11/28/2018 6:56 AM EDT) Hepatitis B Core IgM Negative Negative [facility] Blood specimen (specimen) 11/28/2018 6:56 AM EDT 11/28/2018 7:11 AM EDT Narrative Resulting Agency Comment Spec In Lab Manuel Martin MD CHEMISTRY ORDERABLES Performing Organization Address City/[facility]/ZIP Co de Phone Number [facility] [place] [address] * (ABNORMAL) Hepatitis A Antibody, Total (11/28/2018 6:56 AM EDT) Hepatitis A ANTIBODY, TOTAL Positive(A ) Negative [facility] Blood specimen (specimen) 11/28/2018 6:56 AM EDT 11/28/2018 7:11 AM EDT Narrative Resulting Agency Comment Spec In Lab Manuel Martin MD CHEMISTRY ORDERABLES Performing Organization Address City/[facility]/ZIP Co de Phone Number [facility] [place] [address] * C4 Complement (11/28/2018 6:56 AM EDT) Complement C4 35 10 - 40 mg/dL [facility] Blood specimen (specimen) 11/28/2018 6:56 AM EDT 11/28/2018 7:11 AM EDT Narrative Resulting Agency Comment Spec In Lab Manuel Martin MD CHEMISTRY ORDERABLES Performing Organization Address City/[facility]/ZIP Co de Phone Number [facility] [place] [address] * C3 Complement (11/28/2018 6:56 AM EDT) Complement C3 109 90 - 180 mg/dL [facility] Blood specimen (specimen) 11/28/2018 6:56 AM EDT 11/28/2018 7:11 AM EDT Narrative Resulting Agency Comment Spec In Lab Manuel Martin MD CHEMISTRY ORDERABLES Performing Organization Address [facility] Co de Phone Number [facility] [place] [address] * Proteinase-3 Antibody (11/28/2018 6:56 AM EDT) Proteinase 3 Antibody 2.3 <=20.0 unit(s) [facility] Blood specimen (specimen) 11/28/2018 6:56 AM EDT 11/28/2018 11:20 AM EDT Narrative Resulting Agency Comment Spec In Lab Manuel Martin MD IMMUNOLOGY ORDERABLE S Performing Organization Address City/[facility] Co de Phone Number [facility] [place] [address] * Myeloperoxidase Ab (11/28/2018 6:56 AM EDT) Myeloperoxidase Antibody <2.0 <=20.0 unit(s) [facility] Blood specimen (specimen) 11/28/2018 6:56 AM EDT 11/28/2018 11:20 AM EDT Narrative Resulting Agency Comment Spec In Lab Manuel Martin MD IMMUNOLOGY ORDERABLE S Performing Organization Address City/[facility]/ZIP Co de Phone Number [facility] [place] [address] * DELON (LEB/CGP) (11/28/2018 6:56 AM EDT) DELON Neg Neg [facility] Blood specimen (specimen) 11/28/2018 6:56 AM EDT 11/28/2018 11:20 AM EDT Narrative Resulting Agency Comment Spec In Lab Manuel Martin MD LAB SEND OUT ORDERAB LES Performing Organization Address City/[facility]/ZIP Co de Phone Number [facility] [place] [address] * Uric acid (11/28/2018 5:08 AM EDT) Uric Acid 3.7 3.5 - 8.5 mg/dL [facility] Blood specimen (specimen) Venous Draw / Unknown 11/28/2018 5:08 AM EDT 11/28/2018 9:31 AM EDT Narrative Resulting Agency Comment Spec In Lab Manuel Martin MD CHEMISTRY ORDERABLES Performing Organization Address [facility]/ZIP Co de Phone Number [facility] [place] [address] * (ABNORMAL) Lactate Dehydrogenase (11/28/2018 5:08 AM EDT) Lactate Dehydrogenase 581(H) 110 - 220 unit/L [facility] Blood specimen (specimen) 11/28/2018 5:08 AM EDT 11/28/2018 6:53 AM EDT Narrative Resulting Agency Comment Spec In Lab Ernie Garrett MD CHEMISTRY ORDERABLE S Performing Organization Address [facility]/ZIP Co de Phone Number [facility] [place] [address] * Heparin (unfractionated) Level (11/28/2018 5:08 AM EDT) UF Heparin 0.41 IU/mL [facility] Comment: Guidelines for therapeutic unfractionated heparin levels are summarized below. Heparin (Anti-Xa) levels should be determined in a plasma sample that has been drawn 6 hours after a dose change i.e., steady-state has been reached. DRUG ?Dosing Schedule ? Target Peak Steady-State ?Heparin (Anti-Xa) Levels (Units/mL) Unfractionated ?Continuous infusion ?0.3-0.7 Heparin ?0.3-0.6 for some neurology indications Blood specimen (specimen) 11/28/2018 5:08 AM EDT 11/28/2018 5:38 AM EDT Narrative Resulting Agency Comment Spec In Lab Manuel Martin MD HEMATOLOGY ORDERABLE S Performing Organization Address City/State/[facility] Co de Phone Number [facility] [place] [address] * (ABNORMAL) Differential, Automated (11/28/2018 5:08 AM EDT) Neutrophil % 80.1 % [facility] Neutrophil Absolute 9.14(H) 1.70 - 6.10 x10(3)/mc L [facility] Lymph % 5.9 % [facility] Lymphocytes Abs 0.7(L) 0.9 - 3.2 x10(3)/mc L [facility] Monocyte % 12.8 % [facility] Monocyte Abs 1.5(H) 0.3 - 0.9 x10(3)/mc L [facility] Eos % 0.0 % [facility] Eosinophils Abs 0.0 0.0 - 0.4 x10(3)/mc L [facility] Basophil % 0.3 % [facility] Baso Absolute 0.0 0.0 - 0.1 x10(3)/ L [facility] Immature Gran % 0.90 % [facility] Comment: Immature granulocytes(IG's)percentage and absolute count will include metamyelocytes, myelocytes, and promyelocytes. Blood smears from CBCs yielding IG's will be scanned manually for concordance. If this scan disagrees with the automated IG or if promyelocytes are noted, a manual differential will be performed. Immature Gran Absolute 0.10(H) 0.00 - 0.04 x10(3)/ L [facility] Blood specimen (specimen) 11/28/2018 5:08 AM EDT 11/28/2018 5:38 AM EDT Narrative Resulting Agency Comment Spec In Lab Aydin Hidalgo MD HEMATOLOGY ORDERABLE S Performing Organization Address City/State/[facility] Co de Phone Number [facility] [place] [address] * (ABNORMAL) Hemogram (11/28/2018 5:08 AM EDT) White Blood Cell 11.4(H) 4.0 - 9.5 x10(3)/ L [facility] Red Blood Cell 3.84(L) 4.58 - 5.54 x10(6)/ L [facility] Hemoglobin 12.1(L) 13.7 - 16.5 gm/dL [facility] Hematocrit 35.1(L) 40.5 - 48.5 % [facility] Mean Cell Volume 91.4 82.9 - 93.1 fL [facility] Mean Cell Hemoglobin 31.5 27.5 - 32.1 pg [facility] Mean Cell Hemoglobin Concentration 34.5 32.0 - 35.7 gm/dL [facility] Platelet 108(L) 145 - 357 x10(3)/ L [facility] RDW Standard Deviation 40.0 36.0 - 45.0 fL [facility] RDW coefficient of variation 12.0 11.4 - 13.8 % [facility] Mean Platelet Volume 12.6 7.6 - 12.9 [facility] NRBC% auto 0.0 % [facility] NRBC Absolute 0.000 0.000 - 0.000 x10(3)/mc L [facility] Blood specimen (specimen) 11/28/2018 5:08 AM EDT 11/28/2018 5:38 AM EDT Narrative Resulting Agency Comment Spec In Lab Aydin Hidalgo MD HEMATOLOGY ORDERABLE S Performing Organization Address [facility] Co de Phone Number [facility] [place] [address] * Phosphorus (11/28/2018 5:08 AM EDT) Phosphorus 2.5 2.5 - 4.5 mg/dL [facility] Blood specimen (specimen) 11/28/2018 5:08 AM EDT 11/28/2018 5:38 AM EDT Narrative Resulting Agency Comment Spec In Lab Manuel Martin MD CHEMISTRY ORDERABLES Performing Organization Address [facility] Co de Phone Number [facility] [place] [address] * Magnesium (11/28/2018 5:08 AM EDT) Magnesium 0.74 0.69 - 1.07 mmol/L [facility] Blood specimen (specimen) 11/28/2018 5:08 AM EDT 11/28/2018 5:38 AM EDT Narrative Resulting Agency Comment Spec In Lab Manuel Martin MD CHEMISTRY ORDERABLES Performing Organization Address [facility] Co de Phone Number [facility] [place] [address] * (ABNORMAL) BMP w/fasting Glucose (11/28/2018 5:08 AM EDT) Glucose Fasting 115(H) 65 - 99 mg/dL [facility] Comment: ?Fasting* Glucose Interpretive Criteria Normal ?65-99 mg/dL Impaired Fasting glucose ?100-125 mg/dL Consistent with Diabetes Mellitus ? >or= 126 mg/dL *Fasting is defined as no caloric intake for at least 8 hours In the absence of unequivocal hyperglycemia a plasma glucose value of >or= 126 mg/dL should be repeated on a subsequent day. Diagnosis and Classification of Diabetes Mellitus, Position Statement from the [place] [employer]. ??Diabetes Care, Volume 33, Supplement 1, Sep 2009 Blood Urea Nitrogen 10 10 - 20 mg/dL [facility] Creatinine 1.46 0.80 - 1.50 mg/dL [facility] Sodium 137 135 - 145 mmol/L [facility] Potassium 3.0(Criti dave) 3.5 - 5.0 mmol/L [facility] Comment: Called by: jorge luis, Read back by: magnolia mancilla, Date/Time:11/28/18 06:38. Please note: ??Patients with WBC >100,000 may have falsely elevated Potassium levels. ??For accurate Potassium quantification in these patients send serum separator tube (gold top) for subsequent determinations. ??Contact the Clinical Chemistry Laboratory if there are any questions. Chloride 99 98 - 107 mmol/L [facility] Carbon Dioxide 26 22 - 31 mmol/L [facility] Anion Gap 12 5 - 15 mmol/L [facility] Calcium 8.3(L) 8.5 - 10.5 mg/dL [facility] Est Glomerular Filtration Rate 52(L) >=60 mL/min/1. 73 m?? [facility] Comment: The eGFR was calculated using the CKD-EPI equation. As with all creatinine based estimates of kidney function, eGFR values calculated with the CKD-EPI equation are not accurate in patients with acute kidney failure, extremes of body mass or the acutely ill. [email or web address] eGFR 61 >=60 mL/min/1. 73 m?? [facility] Comment: The eGFR was calculated using the CKD-EPI equation. As with all creatinine based estimates of kidney function, eGFR values calculated with the CKD-EPI equation are not accurate in patients with acute kidney failure, extremes of body mass or the acutely ill. [email or web address] Blood specimen (specimen) 11/28/2018 5:08 AM EDT 11/28/2018 5:38 AM EDT Narrative Resulting Agency Comment Spec In Lab Manuel Martin MD CHEMISTRY ORDERABLES [facility] [place] [address] * Heparin (unfractionated) Level (11/27/2018 9:48 PM EDT) UF Heparin 0.25 IU/mL [facility] Comment: Guidelines for therapeutic unfractionated heparin levels are summarized below. Heparin (Anti-Xa) levels should be determined in a plasma sample that has been drawn 6 hours after a dose change i.e., steady-state has been reached. DRUG ?Dosing Schedule ? Target Peak Steady-State ?Heparin (Anti-Xa) Levels (Units/mL) Unfractionated ?Continuous infusion ?0.3-0.7 Heparin ?0.3-0.6 for some neurology indications Blood specimen (specimen) 11/27/2018 9:48 PM EDT 11/27/2018 10:13 PM EDT Narrative Resulting Agency Comment Spec In Lab Manuel Martin MD HEMATOLOGY ORDERABLE S Performing Organization Address [facility] Co de Phone Number [facility] [place] [address] * Troponin (11/27/2018 9:48 PM EDT) Troponin-T <0.01 0.00 - 0.00 ng/mL [facility] Comment: The 99th percentile for Troponin T is less than 0.01 ng/mL, any detectable cTnT concentration using this assay should be considered elevated. According to the third universal definition of myocardial infarction the following criteria with a clinical presentation consistent with acute myocardial ischemia meets the diagnosis for a myocardial infarction (MA). Detection of a rise and/or fall of cTnT, with at least one value greater than the 99th percentile (> or = 0.01) and with at least one of the following ?? Symptoms of ischemia ?? New or presumed new significant UY-soescwa-H wave (ST-T) changes or new left bundle [...] additional sample may be indicated. Reference: Third [place] Definition of Myocardial Infarction. Journal of the [place] [employer] 2012;60:1581-98 Blood specimen (specimen) 11/27/2018 9:48 PM EDT 11/27/2018 10:13 PM EDT Narrative Resulting Agency Comment Spec In Lab Manuel Martin MD CHEMISTRY ORDERABLES Performing Organization Address [facility]/ZIP Co de Phone Number [facility] [place] [address] * Heparin (unfractionated) Level (11/27/2018 2:25 PM EDT) Pathologist [facility] UF Heparin 0.05 IU/mL [facility] Comment: Guidelines for therapeutic unfractionated heparin levels are summarized below. Heparin (Anti-Xa) levels should be determined in a plasma sample that has been drawn 6 hours after a dose change i.e., steady-state has been reached. DRUG ?Dosing Schedule ? Target Peak Steady-State ?Heparin (Anti-Xa) Levels (Units/mL) Unfractionated ?Continuous infusion ?0.3-0.7 Heparin ?0.3-0.6 for some neurology indications Blood specimen (specimen) 11/27/2018 2:25 PM EDT 11/27/2018 2:37 PM EDT Narrative Resulting Agency Comment Spec In Lab Manuel Martin MD HEMATOLOGY ORDERABLE S Performing Organization Address City/State/[facility] Co de Phone Number [facility] [place] [address] * Troponin (11/27/2018 11:40 AM EDT) Troponin-T <0.01 0.00 - 0.00 ng/mL [facility] Comment: The 99th percentile for Troponin T is less than 0.01 ng/mL, any detectable cTnT concentration using this assay should be considered elevated. According to the third universal definition of myocardial infarction the following criteria with a clinical presentation consistent with acute myocardial ischemia meets the diagnosis for a myocardial infarction (MA). Detection of a rise and/or fall of cTnT, with at least one value greater than the 99th percentile (> or = 0.01) and with at least one of the following ?? Symptoms of ischemia ?? New or presumed new significant BO-lqteows-W wave (ST-T) changes or new left bundle [...] additional sample may be indicated. Reference: Third [place] Definition of Myocardial Infarction. Journal of the [place] [employer] 2012;60:1581-98 Blood specimen (specimen) Venous Draw / Unknown 11/27/2018 11:40 AM EDT 11/27/2018 2:23 PM EDT Narrative Resulting Agency Comment Spec In Lab Manuel Martin MD CHEMISTRY ORDERABLES Performing Organization Address [facility] Co de Phone Number [facility] [place] [address] * (ABNORMAL) CK (11/27/2018 11:40 AM EDT) Creatine Kinase 239(H) 0 - 200 unit/L [facility] Blood specimen (specimen) 11/27/2018 11:40 AM EDT 11/27/2018 11:45 AM EDT Narrative Resulting Agency Comment Spec In Lab Manuel Martin MD CHEMISTRY ORDERABLES Performing Organization Address [facility] Co de Phone Number [facility] [place] [address] * (ABNORMAL) BMP w/fasting Glucose (11/27/2018 11:40 AM EDT) Glucose Fasting 142(H) 65 - 99 mg/dL [facility] Comment: ?Fasting* Glucose Interpretive Criteria Normal ?65-99 mg/dL Impaired Fasting glucose ?100-125 mg/dL Consistent with Diabetes Mellitus ? >or= 126 mg/dL *Fasting is defined as no caloric intake for at least 8 hours In the absence of unequivocal hyperglycemia a plasma glucose value of >or= 126 mg/dL should be repeated on a subsequent day. Diagnosis and Classification of Diabetes Mellitus, Position Statement from the [place] [employer]. ??Diabetes Care, Volume 33, Supplement 1, Sep 2009 Blood Urea Nitrogen 14 10 - 20 mg/dL [facility] Creatinine 1.51(H) 0.80 - 1.50 mg/dL [facility] Sodium 139 135 - 145 mmol/L [facility] Potassium 3.4(L) 3.5 - 5.0 mmol/L [facility] Comment: Please note: ??Patients with WBC >100,000 may have falsely elevated Potassium levels. ??For accurate Potassium quantification in these patients send serum separator tube (gold top) for subsequent determinations. ??Contact the Clinical Chemistry Laboratory if there are any questions. Chloride 103 98 - 107 mmol/L [facility] Carbon Dioxide 22 22 - 31 mmol/L [facility] Anion Gap 14 5 - 15 mmol/L [facility] Calcium 8.5 8.5 - 10.5 mg/dL [facility] Est Glomerular Filtration Rate 50(L) >=60 mL/min/1. 73 m?? [facility] Comment: The eGFR was calculated using the CKD-EPI equation. As with all creatinine based estimates of kidney function, eGFR values calculated with the CKD-EPI equation are not accurate in patients with acute kidney failure, extremes of body mass or the acutely ill. [email or web address] eGFR 58(L) >=60 mL/min/1. 73 m?? [facility] Comment: The eGFR was calculated using the CKD-EPI equation. As with all creatinine based estimates of kidney function, eGFR values calculated with the CKD-EPI equation are not accurate in patients with acute kidney failure, extremes of body mass or the acutely ill. [email or web address] Blood specimen (specimen) 11/27/2018 11:40 AM EDT 11/27/2018 11:45 AM EDT Narrative Resulting Agency Comment Spec In Lab Manuel Martin MD CHEMISTRY ORDERABLES [facility] [place] [address] * Duplex Study Renal Arteries, Bilat (11/27/2018 9:12 AM EDT) VB Text Report Department: Vascular Surgery Lab Patient: [id number] (LEVI BRAVO) CPT: 80911 ICD10: I70.1 Referring Physician: MANUEL MARTIN ?? Indications: ?? 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 patency of renal arteries ICD10 Diagnosis Code: I70.1 Findings: Malina Renal Aorta ? PSV (cm/s): 83 ? EDV (cm/s): 11 Renal Artery Ostium, Right ? PSV (cm/s): 100 ? EDV (cm/s): 15 Renal Artery Proximal, Right ? PSV (cm/s): 106 ? EDV (cm/s): 25 ? RAR: 1.3 ? RI: 0.76 Renal Artery Mid, Right ? PSV (cm/s): 87 ? EDV (cm/s): 21 ? RAR: 1.0 ? RI: 0.75 Renal Artery Distal, Right ? PSV (cm/s): 59 ? EDV (cm/s): 15 ? RAR: 0.7 ? RI: 0.74 Mid Pole Renal Parenchyma, Right ? PSV (cm/s): 29 ? EDV (cm/s): 9 ? RI: 0.68 ? AT (ms): 34 Renal Hilum, Right ? AT (ms): 34 Kidney Length, Right ? Length (cm): 10.8 Renal Vein, Right ? Patent: Patent Renal Artery Proximal, Left ? PSV (cm/s): 0 ? RAR: 0.0 Kidney Length, Left ? Length (cm): 10.3 Renal Vein, Left ? Patent: Patent Interpretation: Right: Patent main renal artery with no evidence of hemodynamically significant stenosis. Left: There is no identifiable flow by duplex in what is suspected to be the main renal artery; suspect occlusion. No arterial flow identified within the kidney. Patent renal vein. Comparison: ??No previous study in our vascular lab database for comparison. Notification: ??Dr. Lola Ribeiro was notified of the preliminary finding. Electronically Signed by: FRITZ SULLIVAN on 2018-12-05 07:35:03 AM V[facility] VB Text Report End of Report [facility] 11/27/2018 9:12 AM EDT Manuel Martin MD VASCULAR ORDERABLES [facility] * Troponin (11/27/2018 4:20 AM EDT) Troponin-T <0.01 0.00 - 0.00 ng/mL [facility] Comment: The 99th percentile for Troponin T is less than 0.01 ng/mL, any detectable cTnT concentration using this assay should be considered elevated. According to the third universal definition of myocardial infarction the following criteria with a clinical presentation consistent with acute myocardial ischemia meets the diagnosis for a myocardial infarction (MA). Detection of a rise and/or fall of cTnT, with at least one value greater than the 99th percentile (> or = 0.01) and with at least one of the following ?? Symptoms of ischemia ?? New or presumed new significant ZG-duecgbm-A wave (ST-T) changes or new left bundle [...] additional sample may be indicated. Reference: Third [place] Definition of Myocardial Infarction. Journal of the [place] [employer] 2012;60:1581-98 Blood specimen (specimen) Venous Draw / Unknown 11/27/2018 4:20 AM EDT 11/27/2018 6:02 AM EDT Narrative Resulting Agency Comment Spec In Lab Manuel Martin MD CHEMISTRY ORDERABLES Performing Organization Address City/[facility]/ZIP Co de Phone Number [facility] [place] [address] * LDL Cholesterol, Direct (11/27/2018 4:20 AM EDT) LDL Cholesterol, Direct 99 mg/dL [facility] Comment: Lowest Risk: <100 mg/dL Lower Risk: 100-129 mg/dL Borderline High Risk: 130-159 mg/dL High Risk: 160-189 mg/dL Very High Risk: >tj=351 mg/dL Blood specimen (specimen) Venous Draw / Unknown 11/27/2018 4:20 AM EDT 11/27/2018 6:02 AM EDT Narrative Resulting Agency Comment Spec In Lab Benigno Cintron MD CHEMISTRY ORDERABLES Performing Organization Address [facility]/ZIP Co de Phone Number [facility] [place] [address] * HDL/Cholesterol Profile (11/27/2018 4:20 AM EDT) Cholesterol, Total 139 mg/dL [facility] Comment: Lower Risk: <200 mg/dL Average Risk: 200-239 mg/dL Higher Risk: >bc=519 mg/dL HDL Cholesterol 41 mg/dL [facility] Comment: Males: ?? Higher Risk: <40 mg/dL Females: ?? HIgher Risk: <50 mg/dL Cholesterol/HDL Ratio 3.4 ratio [facility] Chol/HDL Interpretation See Note [facility] Comment: Lipid management should be guided by a patient? s ASCVD risk, goals and preferences. ACC/AHA Guidelines recommend high intensity statin if clinical ASCVD or LDL greater than or equal to 190 mg/dL. [email or web address]-[email or web address] Measure LDL if Total Cholesterol minus HDL Cholesterol is greater than 220 mg/dL. Adults aged 40-75 with LDL 70-189 mg/dL should have their 10 year ASCVD risk estimated with the ACC/AHA ASCVD risk jewelry estimator http://tools.acc.org/IBLWJ-Jxou-Nuhkvijgy/ Statin should be discussed if risk greater than or equal to 7.5% in non-diabetics. With diabetes, moderate intensity statin is recommended if risk less than 7.5%, high intensity if risk greater than or equal to 7.5%. Annual lipid monitoring on statins is not necessary. Lifestyle modification is a critical component of ASCVD risk reduction. Blood specimen (specimen) Venous Draw / Unknown 11/27/2018 4:20 AM EDT 11/27/2018 6:02 AM EDT Narrative Resulting Agency Comment Spec In Lab Benigno Cintron MD CHEMISTRY ORDERABLES Performing Organization Address City/[facility]/ZIP Co de Phone Number [facility] [place] [address] * Scan, Peripheral Blood (11/27/2018 4:20 AM EDT) Plat estimate Decreased [facility] RBC Morphology Normal [facility] Blood specimen (specimen) 11/27/2018 4:20 AM EDT 11/27/2018 4:36 AM EDT Narrative Resulting Agency Comment Spec In Lab Benigno Cintron MD HEMATOLOGY ORDERABLE S Performing Organization Address City/[facility]/ZIP Co de Phone Number [facility] [place] [address] * (ABNORMAL) Differential, Automated (11/27/2018 4:20 AM EDT) Neutrophil % 78.5 % [facility] Neutrophil Absolute 5.95 1.70 - 6.10 x10(3)/mc L [facility] Lymph % 8.3 % [facility] Lymphocytes Abs 0.6(L) 0.9 - 3.2 x10(3)/mc L [facility] Monocyte % 12.1 % [facility] Monocyte Abs 0.9 0.3 - 0.9 x10(3)/[facility] Eos % 0.1 % [facility] Eosinophils Abs 0.0 0.0 - 0.4 x10(3)/[facility] Basophil % 0.7 % [facility] Baso Absolute 0.0 0.0 - 0.1 x10(3)/[facility] Immature Gran % 0.30 % [facility] Comment: Immature granulocytes(IG's)percentage and absolute count will include metamyelocytes, myelocytes, and promyelocytes. Blood smears from CBCs yielding IG's will be scanned manually for concordance. If this scan disagrees with the automated IG or if promyelocytes are noted, a manual differential will be performed. Immature Gran Absolute 0.02 0.00 - 0.04 x10(3)/[facility] Blood specimen (specimen) 11/27/2018 4:20 AM EDT 11/27/2018 4:36 AM EDT Narrative Resulting Agency Comment Spec In Lab Benigno Cintron MD HEMATOLOGY ORDERABLE S [facility] [place] [address] * (ABNORMAL) Hemogram (11/27/2018 4:20 AM EDT) White Blood Cell 7.6 4.0 - 9.5 x10(3)/[facility] Red Blood Cell 4.11(L) 4.58 - 5.54 x10(6)/[facility] Hemoglobin 12.8(L) 13.7 - 16.5 gm/dL [facility] Hematocrit 37.6(L) 40.5 - 48.5 % [facility] Mean Cell Volume 91.5 82.9 - 93.1 fL [facility] Mean Cell Hemoglobin 31.1 27.5 - 32.1 pg [facility] Mean Cell Hemoglobin Concentration 34.0 32.0 - 35.7 gm/dL [facility] Platelet 109(L) 145 - 357 x10(3)/mc L [facility] RDW Standard Deviation 39.8 36.0 - 45.0 fL [facility] RDW coefficient of variation 12.0 11.4 - 13.8 % [facility] Mean Platelet Volume 12.3 7.6 - 12.9 fL [facility] NRBC% auto 0.0 % [facility] NRBC Absolute 0.000 0.000 - 0.000 x10(3)/mc L [facility] Blood specimen (specimen) 11/27/2018 4:20 AM EDT 11/27/2018 4:36 AM EDT Narrative Resulting Agency Comment Spec In Lab Benigno Cintron MD HEMATOLOGY ORDERABLE S [facility] [place] [address] * (ABNORMAL) CRP, acute inflammation (11/27/2018 4:20 AM EDT) C-Reactive Protein 5.4(H) <=4.9 mg/L [facility] Blood specimen (specimen) 11/27/2018 4:20 AM EDT 11/27/2018 4:36 AM EDT Narrative Resulting Agency Comment Spec In Lab Mariza Flanagan MD CHEMISTRY ORDERABLE S [facility] [place] [address] * Sedimentation rate (11/27/2018 4:20 AM EDT) Sedimentation Rate Automated 8 0 - 15 mm/hr [facility] Blood specimen (specimen) 11/27/2018 4:20 AM EDT 11/27/2018 4:36 AM EDT Narrative Resulting Agency Comment Spec In Lab Mariza Flanagan MD HEMATOLOGY ORDERABL ES Performing Organization Address [facility] Co de Phone Number [facility] [place] [address] * (ABNORMAL) CK (11/27/2018 4:20 AM EDT) Creatine Kinase 333(H) 0 - 200 unit/L [facility] Blood specimen (specimen) 11/27/2018 4:20 AM EDT 11/27/2018 4:36 AM EDT Narrative Resulting Agency Comment Spec In Lab Mariza Flanagan MD CHEMISTRY ORDERABLE S Performing Organization Address [facility] Co de Phone Number [facility] [place] [address] * Peripheral Smear Review (11/27/2018 4:20 AM EDT) Peripheral Smear Review See Comment [facility] Comment: When completed by the Pathologist, report [id number] will display under Hematopathology Reports. Blood specimen (specimen) 11/27/2018 4:20 AM EDT 11/27/2018 4:36 AM EDT Narrative Resulting Agency Comment Spec In Lab Mariza Flanagan MD HEMATOLOGY ORDERABL ES Performing Organization Address [facility] Co de Phone Number [facility] [place] [address] * Osmolality (11/27/2018 4:20 AM EDT) Osmolality 293 275 - 295 mOsm/kg [facility] Blood specimen (specimen) 11/27/2018 4:20 AM EDT 11/27/2018 4:36 AM EDT Narrative Resulting Agency Comment Spec In Lab Mariza Flanagan MD CHEMISTRY ORDERABLE S Performing Organization Address City/[facility]/ZIP [place] [address] * Request For 2nd Read CT Abdomen [...] performed without intravenous contrast. Study performed at [facility] at 1645 hours, November 26, 2018 [...] pelvisperformed without intravenous contrast. Study performed at [facility] at 1645 hours, November 26, 2018 [...] contact the number below. Electronically signed by: Atiya Fan [facility]([phone]), at 11/27/2018 6:18 AM Mariza Flanagan MD IMG OUTSIDE INTERPR ETATION ORDERABLES * Creatinine, urine, random (11/27/2018 4:00 AM EDT) Creatinine, Urine 43 mg/dL [facility] Urine specimen (specimen) 11/27/2018 4:00 AM EDT 11/27/2018 4:06 AM EDT Narrative Resulting Agency Comment Spec In Lab Mariza Flanagan MD URINE ORDERABLES [facility] [place] [address] * Potassium, urine, random (11/27/2018 4:00 AM EDT) Potassium, Urine 33 mmol/L [facility] Urine specimen (specimen) 11/27/2018 4:00 AM EDT 11/27/2018 4:06 AM EDT Narrative Resulting Agency Comment Spec In Lab Mairza Flanagan MD URINE ORDERABLES Performing Organization Address [facility] Co de Phone Number [facility] [place] [address] * Sodium, urine, random (11/27/2018 4:00 AM EDT) Sodium, Urine 111 mmol/L [facility] Urine specimen (specimen) 11/27/2018 4:00 AM EDT 11/27/2018 4:06 AM EDT Narrative Resulting Agency Comment Spec In Lab Mariza Flanagan MD URINE ORDERABLES Performing Organization Address [facility] Co de Phone Number [facility] [place] [address] * Smear Review Report (11/27/2018 2:50 AM EDT) Smear Review Report [id number] ? Location: [facility]; [facility]; The signing pathologist has (i) examined the relevant preparation(s) for the specimen(s) and (ii) rendered or confirmed the diagnosis(es). . ? Smear Review DIAGNOSIS PERIPHERAL BLOOD, SMEAR: ?? 1. ??Mild normochromic normocytic anemia and thrombocytopenia ?? 2. ??Mild absolute lymphopenia Electronically signed by: ??Owen Solorio MD Verified: ??11/28/2018 ?Hematopathologist Performed at: ??-[facility] Dept. of Pathology, [place], [place] DISCUSSION The morphologic findings are nonspecific, but no features of dyspoiesis or increase in schistocytes are appreciated. Factors which may contribute to the cytopenias could include blood loss, nutritional deficits, chronic inflammation/infect ion, or medication effect. Kidney disease may also contribute to anemia. ADDITIONAL STUDIES WBC ??7.24g742/uL, RBC 4.11x 106/uL, HGB 12.8g/dL, HCT 37.6%, MCV 91.5fL, MCHC 34.0g/dL, RDW-CV 12.0%, PLT 109x ?? 103/uL The peripheral smear shows a mild normochromic nomrocytic anemia. Anisocytosis and polychromasia are not increased, but a few elliptocytes and macie cells are seen. There is a mild thrombocytopenia, but platelet morphology is acceptable. The white cell count is normal. There is a mild absolute lymphopenia, but other relative and absolute leukocyte counts are within reference limits. The neutrophils are mostly mature and without significant left-shift. Remaining leukocyte morphology is generally unremarkable. CLINICAL INFORMATION A 58 year old man for whom smear review was requested to evaluate cytopenia. 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 [facility] 11/27/2018 2:50 AM EDT Benigno Cintron MD HEMATOLOGY ORDERABLE S [facility] [place] [address] * EKG 12 Lead (11/27/2018 2:10 AM EDT) Ventricular rate 60 BPM MUSE SYSTEM Atrial Rate 60 BPM MUSE SYSTEM P-R Interval 134 ms MUSE SYSTEM QRS Duration 88 ms MUSE SYSTEM Q-T Interval 454 ms MUSE SYSTEM QTC Calculated (Bezet) 454 ms MUSE SYSTEM Calculated P Harrold 69 degrees MUSE SYSTEM Calculated R Harro[place] 58 degrees MUSE SYSTEM Calculated T Harrold 29 degrees MUSE SYSTEM INTERPRETATION Normal sinus rhythm Possible Left atrial enlargement Nonspecific ST abnormality Abnormal ECG No previous ECGs available Confirmed by MD Lb, Brian ([id number]) on 11/27/2018 10:02:02 PM MUSE SYSTEM 11/27/2018 2:10 AM EDT 11/27/2018 10:02 PM EDT Mariza Flanagan MD ECG ORDERABLES MUSE SYSTEM * (ABNORMAL) Differential, Automated (11/26/2018 11:50 PM EDT) Neutrophil % 74.0 % [facility] Neutrophil Absolute 5.83 1.70 - 6.10 x10(3)/mc L [facility] Lymph % 12.2 % [facility] Lymphocytes Abs 1.0 0.9 - 3.2 x10(3)/ L [facility] Monocyte % 12.6 % [facility] Monocyte Abs 1.0(H) 0.3 - 0.9 x10(3)/[facility] Eos % 0.0 % [facility] Eosinophils Abs 0.0 0.0 - 0.4 x10(3)/[facility] Basophil % 0.8 % [facility] Baso Absolute 0.1 0.0 - 0.1 x10(3)/[facility] Immature Gran % 0.40 % [facility] Comment: Immature granulocytes(IG's)percentage and absolute count will include metamyelocytes, myelocytes, and promyelocytes. Blood smears from CBCs yielding IG's will be scanned manually for concordance. If this scan disagrees with the automated IG or if promyelocytes are noted, a manual differential will be performed. Immature Gran Absolute 0.03 0.00 - 0.04 x10(3)/ L [facility] Blood specimen (specimen) 11/26/2018 11:50 PM EDT 11/27/2018 12:01 AM EDT Narrative Resulting Agency Comment Spec In Lab Jp Cardozo MD HEMATOLOGY ORDERABLE S Performing Organization Address City/[facility]/ZIP Co de Phone Number [facility] [place] [address] * (ABNORMAL) Hemogram (11/26/2018 11:50 PM EDT) White Blood Cell 7.9 4.0 - 9.5 x10(3)/ L [facility] Red Blood Cell 3.97(L) 4.58 - 5.54 x10(6)/mc L [facility] Hemoglobin 12.3(L) 13.7 - 16.5 gm/dL [facility] Hematocrit 36.7(L) 40.5 - 48.5 % [facility] Mean Cell Volume 92.4 82.9 - 93.1 fL [facility] Mean Cell Hemoglobin 31.0 27.5 - 32.1 pg [facility] Mean Cell Hemoglobin Concentration 33.5 32.0 - 35.7 gm/dL [facility] Platelet 119(L) 145 - 357 x10(3)/[facility] RDW Standard Deviation 41.0 36.0 - 45.0 [facility] RDW coefficient of variation 12.0 11.4 - 13.8 % [facility] Mean Platelet Volume 12.6 7.6 - 12.9 [facility] NRBC% auto 0.0 % [facility] NRBC Absolute 0.000 0.000 - 0.000 x10(3)/[facility] Blood specimen (specimen) 11/26/2018 11:50 PM EDT 11/27/2018 12:01 AM EDT Narrative Resulting Agency Comment Spec In Lab Jp Cardozo MD HEMATOLOGY ORDERABLE S [facility] [place] [address] * (ABNORMAL) APTT (11/26/2018 11:50 PM EDT) Partial Thromboplastin Time 23(L) 25 - 37 sec [facility] Comment: The PTT is NOT appropriate for heparin monitoring. Use the Anti-Xa level for heparin monitoring (HEP UFH) or LMWH monitoring (HEP LMW). A PTT less than 37 seconds generally indicates adequate hemostasis. Blood specimen (specimen) 11/26/2018 11:50 PM EDT 11/27/2018 12:01 AM EDT Narrative Resulting Agency Comment Spec In Lab Mariza Flanagan MD HEMATOLOGY ORDERABL ES Performing Organization Address [facility] de Phone Number [facility] [place] [address] * (ABNORMAL) Prothrombin Time (11/26/2018 11:50 PM EDT) Prothrombin Time 12.6(H) 9.4 - 12.5 sec [facility] International Normalization Ratio 1.1 [facility] Comment: An INR <2.0 indicates adequate procoagulant activity for hemostasis in most patients without underlying bleeding disorders, though the INR may not adequately reflect hemostatic capacity in patients with liver disease and synthetic impairment. The recommended target INR range for therapeutic anticoagulation is 2.0 ? 3.0 for most applications, though lower and higher ranges may be appropriate depending on clinical circumstances. Blood specimen (specimen) 11/26/2018 11:50 PM EDT 11/27/2018 12:01 AM EDT Narrative Resulting Agency Comment Spec In Lab Mariza Flanagan MD HEMATOLOGY ORDERABL ES Performing Organization Address [facility] de Phone Number [facility] [place] [address] * (ABNORMAL) Hepatic Function Panel (11/26/2018 11:50 PM EDT) Protein, Total 6.0(L) 6.1 - 8.0 gm/dL [facility] Albumin 3.9 3.2 - 5.2 gm/dL [facility] Aspartate Aminotransferase 34 0 - 39 unit/L [facility] Alanine Aminotransferase 22 0 - 55 unit/L [facility] Alkaline Phosphatase 52 40 - 120 unit/L [facility] Bilirubin, Total 0.6 0.2 - 1.3 mg/dL [facility] Bilirubin, Direct 0.2 0.0 - 0.3 mg/dL [facility] Blood specimen (specimen) 11/26/2018 11:50 PM EDT 11/27/2018 12:01 AM EDT Narrative Resulting Agency Comment Spec In Lab Mariza Flanagan MD CHEMISTRY ORDERABLE S [facility] [place] [address] * (ABNORMAL) Basic Metabolic Panel (non-fasting) (11/26/2018 11:50 PM EDT) Glucose 114 65 - 199 mg/dL [facility] Comment:Diabetes: >=200 mg/d L plus symptoms Blood Urea Nitrogen 21(H) 10 - 20 mg/dL [facility] Creatinine 1.80(H) 0.80 - 1.50 mg/dL [facility] Sodium 142 135 - 145 mmol/L [facility] Potassium 3.7 3.5 - 5.0 mmol/L [facility] mmol/L [facility] Anion Gap 14 5 - 15 mmol/L [facility] Calcium 8.7 8.5 - 10.5 mg/dL [facility] Est Glomerular Filtration Rate 41(L) >=60 mL/min/1. 73 m?? [facility] Comment: The eGFR was calculated using the CKD-EPI equation. As with all creatinine based estimates of kidney function, eGFR values calculated with the CKD-EPI equation are not accurate in patients with acute kidney failure, extremes of body mass or the acutely ill. [email or web address] eGFR 47(L) >=60 mL/min/1. 73 m?? [facility] Comment: The eGFR was calculated using the CKD-EPI equation. As with all creatinine based estimates of kidney function, eGFR values calculated with the CKD-EPI equation are not accurate in patients with acute kidney failure, extremes of body mass or the acutely ill. [email or web address] Blood specimen (specimen) 11/26/2018 11:50 PM EDT 11/27/2018 12:01 AM EDT Narrative Resulting Agency Comment Spec In Lab Mariza Flanagan MD CHEMISTRY ORDERABLE S [facility] [place] [address] * (ABNORMAL) Urinalysis Microscopic Exam (11/26/2018 9:06 PM EDT) RBC, Urine 0 0 - 3 /HPF [facility] Comment: Collection date/time has been modified to: 04:00:00. ??Previous collection date/time: 21:06:00. Collection date/time has been modified to: 21:06:00. ??Previous collection date/time: 04:00:00. Corrected from 0 /HPF on 11/27/18 4:08:17 EDT by Kei Kim. Corrected from 0 /HPF on 11/27/18 4:06:53 EDT by Kei Kim. WBC, Urine <1 0 - 3 /HPF [facility] Comment: Collection date/time has been modified to: 04:00:00. ??Previous collection date/time: 21:06:00. Collection date/time has been modified to: 21:06:00. ??Previous collection date/time: 04:00:00. Corrected from <1 /HPF on 11/27/18 4:08:17 EDT by Kei Kim Corrected from <1 /HPF on 11/27/18 4:06:53 EDT by Kei Kim. Bacteria, Urine Rare(A) None /HPF [facility] Comment: Collection date/time has been modified to: 04:00:00. ??Previous collection date/time: 21:06:00. Collection date/time has been modified to: 21:06:00. ??Previous collection date/time: 04:00:00. Corrected from Rare /HPF [ABN] on 11/27/18 4:08:17 EDT by Kei Kim Corrected from Rare /HPF [ABN] on 11/27/18 4:06:53 EDT by Kei Kim Urine specimen (specimen) 11/26/2018 9:06 PM EDT 11/26/2018 9:14 PM EDT Narrative Resulting Agency Comment Spec In Lab Shabbir Chua MD URINE ORDERABLES [facility] [place] [address] * (ABNORMAL) Urinalysis with reflex Culture (11/26/2018 9:06 PM EDT) Glucose, Urine Dipstick Negative Negative mg/dL [facility] Comment: Collection date/time has been modified to: 04:00:00. ??Previous collection date/time: 21:06:00. Collection date/time has been modified to: 21:06:00. ??Previous collection date/time: 04:00:00. Corrected from Negative mg/dL on 11/27/18 4:08:17 EDT by Kei Kim Corrected from Negative mg/dL on 11/27/18 4:06:53 EDT by Kei Kim Protein, Urine Dipstick Negative Negative mg/dL [facility] Comment: Collection date/time has been modified to: 04:00:00. ??Previous collection date/time: 21:06:00. Collection date/time has been modified to: 21:06:00. ??Previous collection date/time: 04:00:00. Corrected from Negative mg/dL on 11/27/18 4:08:17 EDT by Kei Kim. Corrected from Negative mg/dL on 11/27/18 4:06:53 EDT by Kei Kim. Bilirubin, Urine Dipstick Negative Negative mg/dL [facility] Comment: Clinical correlation required for positive Urine Bilirubin results as false positive may occur with some drugs and drug related products. If a false positive is suspected a serum total bilirubin should be considered if clinically indicated. Collection date/time has been modified to: 04:00:00. ??Previous collection date/time: 21:06:00. Collection date/time has been modified to: 21:06:00. ??Previous collection date/time: 04:00:00. Clinical correlation required for positive Urine Bilirubin results as false positive may occur with some drugs and drug related products. If a false positive is suspected a serum total bilirubin should be considered if clinically indicated. Corrected from Negative mg/dL on 11/27/18 4:08:17 EDT by Kei Kim. Corrected from Negative mg/dL on 11/27/18 4:06:53 EDT by Kei Kim. Urobilinogen, Urine Dipstick Normal Normal mg/dL [facility] Comment: Collection date/time has been modified to: 04:00:00. ??Previous collection date/time: 21:06:00. Collection date/time has been modified to: 21:06:00. ??Previous collection date/time: 04:00:00. Corrected from Normal mg/dL on 11/27/18 4:08:17 EDT by Kei Kim Corrected from Normal mg/dL on 11/27/18 4:06:53 EDT by Kei Kim. pH, Urn (dipstick) 5.0 5.0 - 8.0 [facility] Comment: Collection date/time has been modified to: 04:00:00. ??Previous collection date/time: 21:06:00. Collection date/time has been modified to: 21:06:00. ??Previous collection date/time: 04:00:00. Corrected from 5.0 on 11/27/18 4:08:17 EDT by Kei Kim. Corrected from 5.0 on 11/27/18 4:06:53 EDT by Kei Kim Blood, Urine Dipstick Small(A) Negative mg/dL [facility] Comment: Collection date/time has been modified to: 04:00:00. ??Previous collection date/time: 21:06:00. Collection date/time has been modified to: 21:06:00. ??Previous collection date/time: 04:00:00. Corrected from Small mg/dL [ABN] on 11/27/18 4:08:17 EDT by Kei Kim Corrected from Small mg/dL [ABN] on 11/27/18 4:06:53 EDT by Kei Kim Ketone, Urine Dipstick Negative Negative mg/dL [facility] Comment: Collection date/time has been modified to: 04:00:00. ??Previous collection date/time: 21:06:00. Collection date/time has been modified to: 21:06:00. ??Previous collection date/time: 04:00:00. Corrected from Negative mg/dL on 11/27/18 4:08:17 EDT by Kei Kim Corrected from Negative mg/dL on 11/27/18 4:06:53 EDT by Kei Kim Nitrite, Urine Dipstick Negative Negative [facility] Comment: Collection date/time has been modified to: 04:00:00. ??Previous collection date/time: 21:06:00. Collection date/time has been modified to: 21:06:00. ??Previous collection date/time: 04:00:00. Corrected from Negative on 11/27/18 4:08:17 EDT by Kei Kim. Corrected from Negative on 11/27/18 4:06:53 EDT by Kei Kim Leukocytes, Urine Dipstick Negative Negative mcL [facility] Comment: Collection date/time has been modified to: 04:00:00. ??Previous collection date/time: 21:06:00. Collection date/time has been modified to: 21:06:00. ??Previous collection date/time: 04:00:00. Corrected from Negative mcL on 11/27/18 4:08:17 EDT by Kei Kim. Corrected from Negative mcL on 11/27/18 4:06:53 EDT by eKi Kim Appearance, Urine Dipstick Clear Clear [facility] Comment: Collection date/time has been modified to: 04:00:00. ??Previous collection date/time: 21:06:00. Collection date/time has been modified to: 21:06:00. ??Previous collection date/time: 04:00:00. Corrected from Clear on 11/27/18 4:08:17 EDT by Kei Kim. Corrected from Clear on 11/27/18 4:06:53 EDT by Kei Kim Specific [place] Urine Automated 1.005 1.002 - 1.030 [facility] Comment: Collection date/time has been modified to: 04:00:00. ??Previous collection date/time: 21:06:00. Collection date/time has been modified to: 21:06:00. ??Previous collection date/time: 04:00:00. Corrected from 1.005 on 11/27/18 4:08:17 EDT by Kei Kim. Corrected from 1.005 on 11/27/18 4:06:53 EDT by Kei Kim Color, Urine Dipstick Straw Yellow [facility] Comment: Collection date/time has been modified to: 04:00:00. ??Previous collection date/time: 21:06:00. Collection date/time has been modified to: 21:06:00. ??Previous collection date/time: 04:00:00. Corrected from Straw on 11/27/18 4:08:17 EDT by Kei Kim. Corrected from Straw on 11/27/18 4:06:53 EDT by Kei Kim. Reflex to Culture No [facility] Comment: Collection date/time has been modified to: 04:00:00. ??Previous collection date/time: 21:06:00. Collection date/time has been modified to: 21:06:00. ??Previous collection date/time: 04:00:00. Corrected from No [NA] on 11/27/18 4:08:17 EDT by Kei Kim. Corrected from No [NA] on 11/27/18 4:06:53 EDT by Kei Kim Urine specimen (specimen) 11/26/2018 9:06 PM EDT 11/26/2018 9:14 PM EDT Narrative Resulting Agency Comment Spec In Lab Mariza Flanagan MD URINE ORDERABLES [facility] [place] [address] * Film Library- Storage Only CT Abdomen & Pelvis (11/26/2018 12:00 AM EDT) Narrative [facility] - 11/27/2018 12:45 AM EDT This exam is auto-finalizing. It's purpose is for storage only. Mariza Flanagan MD IMG FILM LIBRARY OR DERABLES Performing Organization Address [facility] de Phone Number [place], [place] * Film Library- Storage Only CT Chest (11/24/2018 12:05 AM EDT) Narrative [facility] [place] - 11/27/2018 12:51 AM EDT This exam is auto-finalizing. It's purpose is for storage only. Mariza Flanagan MD IMG FILM LIBRARY OR DERABLES Performing Organization Address [facility] de Phone Number [place], [place] * Film Library- Storage Only DX Chest (11/24/2018 12:00 AM EDT) Narrative [facility] [place] - 11/27/2018 12:46 AM EDT This exam is auto-finalizing. It's purpose is for storage only. Mariza Flanagan MD [place] FILM LIBRARY OR DERABLES Performing Organization Address [facility] de Phone Number [place], [place] documented in this encounter Visit Diagnoses Diagnosis Elevated serum creatinine- Primary Other nonspecific findings on examination of blood Flank pain Abdominal pain, unspecified site Elevated serum creatinine Other nonspecific findings on examination of blood Renal artery stenosis Atherosclerosis of renal artery Flank pain Abdominal pain, unspecified site Renal artery stenosis Atherosclerosis of renal artery Renal artery stenosis Atherosclerosis of renal artery documented in this encounter Admitting Diagnoses Diagnosis Flank pain Abdominal pain, unspecified site documented in this encounter Administered Medications Inactive Administered Medications - up to 3 most recent administrations Medication Order MAR Action Action Date Dose Rate Site acetaminophen (TYLENOL) 650 mg/20.3 mL oral liquid 650 mg 650 mg, Oral, EVERY 4 HOURS PRN, Starting on 11/27/18 at 0900, Until Charlene 12/01/18 at 1706, Fever, Maximum dose of acetaminophen is 4000 mg from all sources in 24 hours. , Routine Given 11/30/2018 10:19 PM EDT 650 mg Given 11/30/2018 5:24 PM EDT 650 mg Given 11/30/2018 11:01 AM EDT 650 mg amLODIPine (NORVASC) tablet 5 mg 5 mg, Oral, DAILY, First dose on 11/27/18 at 0915, Until Discontinued, Routine Given 12/01/2018 8:45 AM EDT 5 mg Given 11/30/2018 9:56 AM EDT 5 mg Given 11/29/2018 9:45 AM EDT 5 mg docusate sodium (COLACE) capsule 100 mg 100 mg, Oral, 2 TIMES DAILY PRN, Starting on Charlene 12/01/18 at 0844, Until Wed12/01/18 at 1706, Constipation, Routine enoxaparin (LOVENOX) injection 70 mg 70 mg, Subcutaneous, EVERY 12 HOURS SCHEDULED (2 times per day), First dose on Charlene 12/01/18 at 0915, Until Discontinued, Routine Given 12/01/2018 9:27 AM EDT 70 mg gadoterate meglumine (DOTAREM) 0.5 mmol/mL (376.9 mg/mL) injection 0-100 mL 0-100 mL, Intravenous, ONCE PRN, 1 dose, Starting on 11/28/18 at 1726, Until Wed11/28/18 at 1727, Per Protocol, Radiology Contrast, Routine Given 11/28/2018 5:27 PM EDT 13 mLs heparin (porcine) injection 0-8,000 Units 0-8,000 Units, Intravenous, BOLUS PER HEPARIN PROTOCOL, Starting on Wed11/27/18 at 1408, Until Wed11/30/18 at 1407, Per Protocol, START ADJUSTMENT SCHEDULE 6 HOURS AFTER STARTING INFUSION Heparin UFH Level between 0.1 - 0.29 IU/mL: Bolus 2,200 units Heparin UFH Level less than 0.1 IU/mL: Bolus 4,400 units, Routine Given 11/30/2018 5:50 AM EDT 2,200 Units Given 11/28/2018 5:07 PM EDT 2,200 Units Given 11/27/2018 11:09 PM EDT 2,200 Units heparin (porcine) injection 0-8,000 Units 0-8,000 Units, Intravenous, BOLUS PER HEPARIN PROTOCOL, Starting on Wed11/30/18 at 1458, Until Wed12/01/18 at 0849, Per Protocol, START ADJUSTMENT SCHEDULE 6 HOURS AFTER STARTING INFUSION Heparin UFH Level between 0.1 - 0.29 IU/mL: Bolus 2,200 units Heparin UFH Level less than 0.1 IU/mL: Bolus 4,400 units, Routine Given 11/30/2018 8:27 PM EDT 2,200 Units heparin (Porcine) subcutaneous injection 5,000 Units 5,000 Units, Subcutaneous, EVERY 12 HOURS SCHEDULED (2 times per day), First dose on Wed11/27/18 at 0900, Until Discontinued, Routine Given 11/27/2018 9:41 AM EDT 5,000 Units heparin 25,000 units in dextrose 5% 500 mL infusion 0-5,000 Units/hr (0-100 mL/hr), Intravenous, CONTINUOUS, Starting on Wed11/27/18 at 1430, Until Wed11/30/18 at 1407, Begin infusion at 950 units per hr (15 units/kg/hr). MAX INITIAL infusion rate is 1,750 units/hr Target Heparin UFH Level (anti-Xa activity) = 0.3 - 0.7 IU/mL Start adjustment schedule 6 hours after starting infusion. If Heparin UFH Level is: - less than 0.1 IU/mL, administer PRN bolus and increase rate by 250 units per hr (4 units/kg/hr) - 0.1 - 0.29 IU/mL, administer PRN bolus and increase rate by 150 units per hr (2 units/kg/hr) - 0.3 - 0.7 IU/mL, No Change - 0.71 - 0.85 IU/mL, decrease rate by 50 units per hr (1 units/kg/hr) - 0.86 - 1.05 IU/mL, stop infusion for 30 minutes, then decrease rate by 150 units per hr (2 units/kg/hr) - Greater than 1.05 IU/mL, stop infusion for 60 minutes, then decrease rate by 200 units per hour (3 units/kg/hr) Repeat Heparin UFH Level 6 hours after initiating heparin. Then 6 hours after each dose adjustment. When 2 consecutive Heparin UFH Level within target range of 0.3 - 0.7 IU/mL, change Heparin UFH Level to once every 24 hours with A.M. labs while on heparin. RN to order required Heparin UFH Level - Per Protocol, Routine, Indication: Other (document in comments field):, Comments: Unilateral Renal Artery Stenosis - No flow on doppler - heparin gtt recommended by Vascular Surgery Rate/Dose Verify 11/30/2018 12:35 PM EDT 1,400 Units/hr 28 mL/hr New Bag 11/30/2018 5:56 AM EDT 1,400 Units/hr 28 mL/hr Rate/Dose Change 11/30/2018 5:52 AM EDT 1,400 Units/hr 28 mL/hr heparin 25,000 units in dextrose 5% 500 mL infusion 0-5,000 Units/hr (0-100 mL/hr), Intravenous, CONTINUOUS, Starting on 11/30/18 at 1515, Until Charlene 12/01/18 at 0849, Begin infusion at 950 units per hr (15 units/kg/hr). MAX INITIAL infusion rate is 1,750 units/hr Target Heparin UFH Level (anti-Xa activity) = 0.3 - 0.7 IU/mL Start adjustment schedule 6 hours after starting infusion. If Heparin UFH Level is: - less than 0.1 IU/mL, administer PRN bolus and increase rate by 250 units per hr (4 units/kg/hr) - 0.1 - 0.29 IU/mL, administer PRN bolus and increase rate by 150 units per hr (2 units/kg/hr) - 0.3 - 0.7 IU/mL, No Change - 0.71 - 0.85 IU/mL, decrease rate by 50 units per hr (1 units/kg/hr) - 0.86 - 1.05 IU/mL, stop infusion for 30 minutes, then decrease rate by 150 units per hr (2 units/kg/hr) - Greater than 1.05 IU/mL, stop infusion for 60 minutes, then decrease rate by 200 units per hour (3 units/kg/hr) Repeat Heparin UFH Level 6 hours after initiating heparin. Then 6 hours after each dose adjustment. When 2 consecutive Heparin UFH Level within target range of 0.3 - 0.7 IU/mL, change Heparin UFH Level to once every 24 hours with A.M. labs while on heparin. RN to order required Heparin UFH Level - Per Protocol, Routine, Indication: Other (document in comments field):, Comments: Unilateral Renal Artery Stenosis - No flow on doppler - heparin gtt recommended by Vascular Surgery Rate/Dose Verify 12/01/2018 6:45 AM EDT 1,550 Units/hr 31 mL/hr Rate/Dose Verify 12/01/2018 1:27 AM EDT 1,550 Units/hr 31 mL/hr New Bag 12/01/2018 12:51 AM EDT 1,550 Units/hr 31 mL/hr hydrALAZINE (APRESOLINE) injection 10 mg 10 mg, Intravenous, EVERY 4 HOURS PRN, Starting on Wed11/27/18 at 1230, Until Charlene 12/01/18 at 1706, High Blood Pressure, SBP >180 hydrALAZINE (APRESOLINE) injection 5 mg 5 mg, Intravenous, EVERY 6 HOURS PRN, Starting on Wed11/27/18 at 0415, Until Wed11/27/18 at 0957, High Blood Pressure, SBP >180 Given 11/27/2018 9:20 AM EDT 5 mg hydrALAZINE (APRESOLINE) injection 5 mg 5 mg, Intravenous, ONCE, 1 dose, On Wed11/27/18 at 0417 Given 11/27/2018 4:22 AM EDT 5 mg hydrocortisone 1 % cream 1 each 1 each, Topical (Top), 2 TIMES DAILY, First dose on Wed11/27/18 at 2100, Until Discontinued, Hemorrhoid Given 11/30/2018 8:34 PM EDT 1 each Given 11/30/2018 9:57 AM EDT 1 each Given 11/29/2018 9:15 PM EDT 1 each HYDROmorphone (DILAUDID) tablet 2 mg 2 mg, Oral, EVERY 4 HOURS PRN, Starting on Wed11/27/18 at 1609, Until Charlene 12/01/18 at 1706, Pain, Routine lactated ringers infusion 75 mL/hr, Intravenous, CONTINUOUS, Starting on Wed11/30/18 at 0530, Until Wed11/30/18 at 1531 New Bag 11/30/2018 5:44 AM EDT 75 mL/hr 75 mL/hr magnesium sulfate 2 g in sterile water 50 mL 2 g, Intravenous, ONCE, 1 dose, On Wed11/28/18 at 0700, Administer over 120 Minutes New Bag 11/28/2018 7:46 AM EDT 2 g 25 mL/hr morphine 2 mg/mL injection syringe 2 mg 2 mg, Intravenous, ONCE, 1 dose, On 11/26/18 at 2353, STAT Given 11/26/2018 11:58 PM EDT 2 mg morphine 2 mg/mL injection syringe 2 mg 2 mg, Intravenous, ONCE, 1 dose, On Wed11/27/18 at 0035, STAT Given 11/27/2018 12:58 AM EDT 2 mg oxyCODONE (ROXICODONE) immediate release tablet 10 mg 10 mg, Oral, EVERY 4 HOURS PRN, Starting on Wed11/27/18 at 0501, Until Wed11/27/18 at 1610, Pain Given 11/27/2018 5:16 AM EDT 10 mg polyethylene glycol (MIRALAX) packet 17 g 17 g, Oral, DAILY PRN, Starting on Wed11/27/18 at 1953, Until Wed11/30/18 at 1034, Constipation, Routine Given 11/27/2018 9:13 PM EDT 17 g potassium chloride (K-DUR/KLOR-CON) extended release tablet 40 mEq 40 mEq, Oral, ONCE, 1 dose, On Wed11/28/18 at 0700, 20 mEq tablet may be dissolved in water for administration, Routine Given 11/28/2018 7:46 AM EDT 40 mEq potassium chloride 10 mEq in 100 mL 10 mEq, Intravenous, EVERY 2 HOURS, 4 doses, First dose on Wed11/28/18 at 0700, Last dose on Wed11/28/18 at 1300, Administer over 60 Minutes, Warning Vesicant/Irritant Medication New Bag 11/28/2018 12:11 PM EDT 10 mEq 100 mL/hr New Bag 11/28/2018 11:01 AM EDT 10 mEq 100 mL/hr New Bag 11/28/2018 9:57 AM EDT 10 mEq 100 mL/hr potassium, sodium phosphates (NEUTRA-PHOS) 280-160-250 mg oral packet 3 g 3 g, Oral, ONCE, 1 dose, On Wed11/30/18 at 0700, Take with full glass of water, Routine Given 11/30/2018 3:35 PM EDT 3 g potassium, sodium phosphates (NEUTRA-PHOS) 280-160-250 mg oral packet 3 g 3 g, Oral, ONCE, 1 dose, On Wed12/01/18 at 0915, Take with full glass of water, Routine Given 12/01/2018 9:27 AM EDT 3 g senna-docusate (PERICOLACE) 8.6-50 mg per tablet 1 tablet 1 tablet, Oral, 2 TIMES DAILY PRN, Starting on Wed11/28/18 at 0858, Until Wed11/28/18 at 1609, Constipation, Routine Given 11/28/2018 9:24 AM EDT 1 tab let senna-docusate (PERICOLACE) 8.6-50 mg per tablet 2 tablet 2 tablet, Oral, 2 TIMES DAILY, First dose (after last modification) on Wed11/28/18 at 2100, Until Discontinued, Routine Given 11/28/2018 8:15 PM EDT 2 table ts simethicone (Mylicon) (40 mg/0.6mL) oral liquid 40 mg 40 mg, Oral, EVERY 6 HOURS PRN, Starting on Wed11/30/18 at 1045, Until Wed12/01/18 at 1706, Cramping, Routine Given 12/01/2018 8:46 AM EDT 40 mg Given 11/30/2018 8:26 PM EDT 40 mg simethicone (MYLICON) 40 mg/0.6 mL oral drops 40 mg 40 mg, Oral, 4 TIMES DAILY, First dose on Wed11/28/18 at 0915, Until Discontinued, Routine Given 11/30/2018 9:56 AM EDT 40 mg Given 11/29/2018 9:14 PM EDT 40 mg Given 11/29/2018 4:01 PM EDT 40 mg sodium chloride 0.9 % flush 5 mL 5 mL, Intravenous, 2 TIMES DAILY, First dose on Wed11/27/18 at 0900, Until Discontinued, Routine Given 12/01/2018 8:46 AM EDT 5 mLs Given 11/30/2018 8:33 PM EDT 5 mLs Given 11/29/2018 9:19 PM EDT 5 mLs sodium chloride 0.9% infusion 100 mL/hr, Intravenous, CONTINUOUS, Starting on Wed11/27/18 at 1700, Until Wed11/29/18 at 1335 New Bag 11/29/2018 5:48 AM EDT 100 mL/hr 100 mL/hr New Bag 11/28/2018 8:18 PM EDT 100 mL/hr 100 mL/hr Rate/Dose Change 11/28/2018 1:21 PM EDT 100 mL/hr 100 mL/ hr documented in this encounter Active and Recently Administered Medications Times are shown in EDT. Scheduled Medication Order 11/29/2018 11/30/2018 12/01/2018 amLODIPine (NORVASC) tablet 5 mg 5 mg, Oral, DAILY, First dose on Wed11/27/18 at 0915, Until Discontinued, Routine 0945 (Given - Provider: Yen Hernandez RN) 0956 (Given - Provider: Saskia Cohen, COLE) 0845 (Given - Provider: Katty Worthington, COLE) enoxaparin (LOVENOX) injection 70 mg 70 mg, Subcutaneous, EVERY 12 HOURS SCHEDULED (2 times per day), First dose on Charlene 12/01/18 at 0915, Until Discontinued, Routine 09 (Given - Provider: Saskia Cohen RN) hydrocortisone 1 % cream 1 each 1 each, Topical (Top), 2 TIMES DAILY, First dose on Wed11/27/18 at 2100, Until Discontinued, Hemorrhoid 0948 (Given - Provider: Yen Hernandez RN)2114 (Given - Provider: Coral Corbin, COLE) 0957 (Given - Provider: Saskia Cohen, COLE)203 (Given - Provider: Raquel Santana RN) 0900 (Not Given - Provider: Katty Worthington, COLE - Reason: Patient/family refused) potassium, sodium phosphates (NEUTRA-PHOS) 280-160-250 mg oral packet 3 g (COMPLETED) 3 g, Oral, ONCE, 1 dose, On Wed11/30/18 at 0700, Take with full glass of water, Routine 1535 (Given - Provider: Saskia Cohen RN) potassium, sodium phosphates (NEUTRA-PHOS) 280-160-250 mg oral packet 3 g (COMPLETED) 3 g, Oral, ONCE, 1 dose, On Charlene 12/01/18 at 0915, Take with full glass of water, Routine 09 (Given - Provider: Saskia Cohen RN) simethicone (MYLICON) 40 mg/0.6 mL oral drops 40 mg (CANCELED) 40 mg, Oral, 4 TIMES DAILY, First dose on 11/28/18 at 0915, Until Discontinued, Routine 0944 (Given - Provider: Yen Hernandez RN)1228 (Given - Provider: Yen Hernandez RN)1601 (Given - Provider: Yen Hernandez RN)211 (Given - Provider: Coral Corbin, COLE) 0956 (Given - Provider: Saskia Cohen RN) sodium chloride 0.9 % flush 5 mL 5 mL, Intravenous, 2 TIMES DAILY, First dose on Wed11/27/18 at 0900, Until Discontinued, Routine 09 (Given - Provider: Yen Hernandez RN)2118 (Given - Provider: Coral Corbin RN) 09 (Not Given - Provider: Saskia Cohen RN - Reason: See comment - Comment: infusing)2032 (Given - Provider: Raquel Santana RN) 08 (Given - Provider: Katty Worthington RN) Continuous Medication Order 11/29/2018 11/30/2018 12/01/2018 heparin 25,000 units in dextrose 5% 500 mL infusion (CANCELED)(Linked Group 1) 0-5,000 Units/hr (0-100 mL/hr), Intravenous, CONTINUOUS, Starting on Wed11/27/18 at 1430, Until Wed11/30/18 at 1407, Begin infusion at 950 units per hr (15 units/kg/hr). MAX INITIAL infusion rate is 1,750 units/hr Target Heparin UFH Level (anti-Xa activity) = 0.3 - 0.7 IU/mL Start adjustment schedule 6 hours after starting infusion. If Heparin UFH Level is: - less than 0.1 IU/mL, administer PRN bolus and increase rate by 250 units per hr (4 units/kg/hr) - 0.1 - 0.29 IU/mL, administer PRN bolus and increase rate by 150 units per hr (2 units/kg/hr) - 0.3 - 0.7 IU/mL, No Change - 0.71 - 0.85 IU/mL, decrease rate by 50 units per hr (1 units/kg/hr) - 0.86 - 1.05 IU/mL, stop infusion for 30 minutes, then decrease rate by 150 units per hr (2 units/kg/hr) - Greater than 1.05 IU/mL, stop infusion for 60 minutes, then decrease rate by 200 units per hour (3 units/kg/hr) Repeat Heparin UFH Level 6 hours after initiating heparin. Then 6 hours after each dose adjustment. When 2 consecutive Heparin UFH Level within target range of 0.3 - 0.7 IU/mL, change Heparin UFH Level to once every 24 hours with A.M. labs while on heparin. RN to order required Heparin UFH Level - Per Protocol, Routine, Indication: Other (document in comments field):, Comments: Unilateral Renal Artery Stenosis - No flow on doppler - heparin gtt recommended by Vascular Surgery 0000 (Rate/Dose Verify - Provider: Coral Corbin RN)0643 (Rate/Dose Verify - Provider: Coral Corbin RN)0942 (New Bag - Provider: Yen Hernandez RN) 0552 (Rate/Dose Change - Provider: Coral Corbin RN)0556 (New Bag - Provider: Coral Corbin RN)1235 (Rate/Dose Verify - Provider: Saskia Cohen RN)1400 (Stopped - Provider: Saskia Cohen RN - Comment: Continued to new order. Rate remains @ 1400U/hr. UFH due @ 1830.) heparin 25,000 units in dextrose 5% 500 mL infusion (CANCELED)(Linked Group 2) 0-5,000 Units/hr (0-100 mL/hr), Intravenous, CONTINUOUS, Starting on Wed11/30/18 at 1515, Until Charlene 12/01/18 at 0849, Begin infusion at 950 units per hr (15 units/kg/hr). MAX INITIAL infusion rate is 1,750 units/hr Target Heparin UFH Level (anti-Xa activity) = 0.3 - 0.7 IU/mL Start adjustment schedule 6 hours after starting infusion. If Heparin UFH Level is: - less than 0.1 IU/mL, administer PRN bolus and increase rate by 250 units per hr (4 units/kg/hr) - 0.1 - 0.29 IU/mL, administer PRN bolus and increase rate by 150 units per hr (2 units/kg/hr) - 0.3 - 0.7 IU/mL, No Change - 0.71 - 0.85 IU/mL, decrease rate by 50 units per hr (1 units/kg/hr) - 0.86 - 1.05 IU/mL, stop infusion for 30 minutes, then decrease rate by 150 units per hr (2 units/kg/hr) - Greater than 1.05 IU/mL, stop infusion for 60 minutes, then decrease rate by 200 units per hour (3 units/kg/hr) Repeat Heparin UFH Level 6 hours after initiating heparin. Then 6 hours after each dose adjustment. When 2 consecutive Heparin UFH Level within target range of 0.3 - 0.7 IU/mL, change Heparin UFH Level to once every 24 hours with A.M. labs while on heparin. RN to order required Heparin UFH Level - Per Protocol, Routine, Indication: Other (document in comments field):, Comments: Unilateral Renal Artery Stenosis - No flow on doppler - heparin gtt recommended by Vascular Surgery 1515 (Rate/Dose Verify - Provider: Saskia Cohen RN)2030 (Rate/Dose Change - Provider: Raquel Santana RN) 0051 (New Bag - Provider: Rauqel Santana RN)0127 (Rate/Dose Verify - Provider: Raquel Santana RN - Comment: UFH 0.47)0645 (Rate/Dose Verify - Provider: Raquel Santana RN - Comment: UFH 0.33)0927 (Stopped - Provider: Saskia Cohen RN) lactated ringers infusion (CANCELED) 75 mL/hr, Intravenous, CONTINUOUS, Starting on Wed11/30/18 at 0530, Until Wed11/30/18 at 1531 0544 (New Bag - Provider: Coral Corbin RN)1534 (Stopped - Provider: Saskia Cohen RN) sodium chloride 0.9% infusion (CANCELED) 100 mL/hr, Intravenous, CONTINUOUS, Starting on Wed11/27/18 at 1700, Until Tu11/29/18 at 1335 0548 (New Bag - Provider: Coral Corbin RN)1342 (Stopped - Provider: Yen Hernandez RN) PRN Medication Order 11/29/2018 11/30/2018 12/01/2018 acetaminophen (TYLENOL) 650 mg/20.3 mL oral liquid 650 mg 650 mg, Oral, EVERY 4 HOURS PRN, Starting on Wed11/27/18 at 0900, Until Charlene 12/01/18 at 1706, Fever, Maximum dose of acetaminophen is 4000 mg from all sources in 24 hours. , Routine 0517 (Given - Provider: Coral Corbin RN)1235 (Given - Provider: Yen Hernandez, COLE)1937 (Given - Provider: Kajal Gonsalez RN) 0302 (Given - Provider: Coral Corbin RN)1101 (Given - Provider: Saskia Cohen, RN)1724 (Given - Provider: Saskia Cohen, RN)2219 (Given - Provider: Raquel Santana, COLE) docusate sodium (COLACE) capsule 100 mg 100 mg, Oral, 2 TIMES DAILY PRN, Starting on Charlene 12/01/18 at 0844, Until Charlene 12/01/18 at 1706, Constipation, Routine heparin (porcine) injection 0-8,000 Units (CANCELED)(Linked Group 1) 0-8,000 Units, Intravenous, BOLUS PER HEPARIN PROTOCOL, Starting on Wed11/27/18 at 1408, Until Wed11/30/18 at 1407, Per Protocol, START ADJUSTMENT SCHEDULE 6 HOURS AFTER STARTING INFUSION Heparin UFH Level between 0.1 - 0.29 IU/mL: Bolus 2,200 units Heparin UFH Level less than 0.1 IU/mL: Bolus 4,400 units, Routine 0550 (Given - Provider: Coral Corbin RN) heparin (porcine) injection 0-8,000 Units (CANCELED)(Linked Group 2) 0-8,000 Units, Intravenous, BOLUS PER HEPARIN PROTOCOL, Starting on Wed11/30/18 at 1458, Until Charlene 12/01/18 at 0849, Per Protocol, START ADJUSTMENT SCHEDULE 6 HOURS AFTER STARTING INFUSION Heparin UFH Level between 0.1 - 0.29 IU/mL: Bolus 2,200 units Heparin UFH Level less than 0.1 IU/mL: Bolus 4,400 units, Routine 2026 (Given - Provider: Raquel Santana, COLE - Comment: UFH 0.21) hydrALAZINE (APRESOLINE) injection 10 mg 10 mg, Intravenous, EVERY 4 HOURS PRN, Starting on Wed11/27/18 at 1230, Until Charlene 12/01/18 at 1706, High Blood Pressure, SBP >180 HYDROmorphone (DILAUDID) tablet 2 mg 2 mg, Oral, EVERY 4 HOURS PRN, Starting on 11/27/18 at 1609, Until Charlene 12/01/18 at 1706, Pain, Routine lidocaine (XYLOCAINE) 10 mg/mL (1 %) injection 3 mg 3 mg (0.3 mL), Subcutaneous, ONCE PRN, 1 dose, Starting on Wed11/27/18 at 0448, Until Charlene 12/01/18 at 1706, for discomfort with PIV insertion, Routine simethicone (Mylicon) (40 mg/0.6mL) oral liquid 40 mg 40 mg, Oral, EVERY 6 HOURS PRN, Starting on Wed11/30/18 at 1045, Until Wed12/01/18 at 1706, Cramping, Routine 2025 (Given - Provider: Raquel Santana, COLE) 0846 (Given - Provider: Katty Worthington RN) sodium chloride 0.9 % flush 5-20 mL 5-20 mL, Intravenous, EVERY 1 MIN PRN, Starting on Wed11/27/18 at 0448, Until Charlene 12/01/18 at 1706, flush, Flush pertains to all indwelling lines. Flush per protocol found in the job aid using the link provided on this medication record., Routine Linked Groups Order Group 1: heparin (porcine) injection 0-8,000 Units (CANCELED)Jump to med 0-8,000 Units, Intravenous, BOLUS PER HEPARIN PROTOCOL, Starting on Wed11/27/18 at 1408, Until Wed11/30/18 at 1407, Per Protocol, START ADJUSTMENT SCHEDULE 6 HOURS AFTER STARTING INFUSION Heparin UFH Level between 0.1 - 0.29 IU/mL: Bolus 2,200 units Heparin UFH Level less than 0.1 IU/mL: Bolus 4,400 units, Routine And heparin 25,000 units in dextrose 5% 500 mL infusion (CANCELED)Jump to med 0-5,000 Units/hr (0-100 mL/hr), Intravenous, CONTINUOUS, Starting on Wed11/27/18 at 1430, Until Wed11/30/18 at 1407, Begin infusion at 950 units per hr (15 units/kg/hr). MAX INITIAL infusion rate is 1,750 units/hr Target Heparin UFH Level (anti-Xa activity) = 0.3 - 0.7 IU/mL Start adjustment schedule 6 hours after starting infusion. If Heparin UFH Level is: - less than 0.1 IU/mL, administer PRN bolus and increase rate by 250 units per hr (4 units/kg/hr) - 0.1 - 0.29 IU/mL, administer PRN bolus and increase rate by 150 units per hr (2 units/kg/hr) - 0.3 - 0.7 IU/mL, No Change - 0.71 - 0.85 IU/mL, decrease rate by 50 units per hr (1 units/kg/hr) - 0.86 - 1.05 IU/mL, stop infusion for 30 minutes, then decrease rate by 150 units per hr (2 units/kg/hr) - Greater than 1.05 IU/mL, stop infusion for 60 minutes, then decrease rate by 200 units per hour (3 units/kg/hr) Repeat Heparin UFH Level 6 hours after initiating heparin. Then 6 hours after each dose adjustment. When 2 consecutive Heparin UFH Level within target range of 0.3 - 0.7 IU/mL, change Heparin UFH Level to once every 24 hours with A.M. labs while on heparin. RN to order required Heparin UFH Level - Per Protocol, Routine, Indication: Other (document in comments field):, Comments: Unilateral Renal Artery Stenosis - No flow on doppler - heparin gtt recommended by Vascular Surgery Group 2: heparin (porcine) injection 0-8,000 Units (CANCELED)Jump to med 0-8,000 Units, Intravenous, BOLUS PER HEPARIN PROTOCOL, Starting on Wed11/30/18 at 1458, Until Charlene 12/01/18 at 0849, Per Protocol, START ADJUSTMENT SCHEDULE 6 HOURS AFTER STARTING INFUSION Heparin UFH Level between 0.1 - 0.29 IU/mL: Bolus 2,200 units Heparin UFH Level less than 0.1 IU/mL: Bolus 4,400 units, Routine And heparin 25,000 units in dextrose 5% 500 mL infusion (CANCELED)Jump to med 0-5,000 Units/hr (0-100 mL/hr), Intravenous, CONTINUOUS, Starting on Wed11/30/18 at 1515, Until Charlene 12/01/18 at 0849, Begin infusion at 950 units per hr (15 units/kg/hr). MAX INITIAL infusion rate is 1,750 units/hr Target Heparin UFH Level (anti-Xa activity) = 0.3 - 0.7 IU/mL Start adjustment schedule 6 hours after starting infusion. If Heparin UFH Level is: - less than 0.1 IU/mL, administer PRN bolus and increase rate by 250 units per hr (4 units/kg/hr) - 0.1 - 0.29 IU/mL, administer PRN bolus and increase rate by 150 units per hr (2 units/kg/hr) - 0.3 - 0.7 IU/mL, No Change - 0.71 - 0.85 IU/mL, decrease rate by 50 units per hr (1 units/kg/hr) - 0.86 - 1.05 IU/mL, stop infusion for 30 minutes, then decrease rate by 150 units per hr (2 units/kg/hr) - Greater than 1.05 IU/mL, stop infusion for 60 minutes, then decrease rate by 200 units per hour (3 units/kg/hr) Repeat Heparin UFH Level 6 hours after initiating heparin. Then 6 hours after each dose adjustment. When 2 consecutive Heparin UFH Level within target range of 0.3 - 0.7 IU/mL, change Heparin UFH Level to once every 24 hours with A.M. labs while on heparin. RN to order required Heparin UFH Level - Per Protocol, Routine, Indication: Other (document in comments field):, Comments: Unilateral Renal Artery Stenosis - No flow on doppler - heparin gtt recommended by Vascular Surgery documented in this encounter Care Teams District Wire Chief Relationship Specialty Start Date End Date Sonal Sorensen APRN PCP - General Family Medicine 02/21/18 12/17/18 documented as of this encounter
[2024-06-09 16:38] LABS: Abs Immature Grans 0.01 10^3/uL (0.0-0.06); Absolute Basophil Count 0.06 10^3/uL (0.0-0.2); Absolute Eosinophil Count 0.31 10^3/uL (0.0-0.7); Absolute Lymphocyte Count 1.36 10^3/uL (1.2-3.4); Absolute Monocyte Count 0.52 10^3/uL (0.1-0.8); Absolute Neutrophil Count 2.68 10^3/uL (1.2-6.7); Basophils % 1.2 %; Eosinophils % 6.3 %; HCT 43.6 % (40.0-50.0); HGB 14.5 g/dL (13.5-17.5); Immature Grans % 0.2 %; Lymphocytes % 27.5 %; MCH 31.5 pg (27.0-33.0); MCHC 33.3 % (32.0-36.0); MCV 95 fL (80-95); MPV 11.3 fL (8.0-11.0); Monocytes % 10.5 %; Neutrophils % 54.3 %; Platelet Count 149 10^3/uL (130-400); RDW 12.1 % (11.8-14.1); RDW-SD 42.4 fL; WBC 4.94 10^3/uL (4.4-10.8)
[2024-06-09 17:23] LABS: COMMENT (LAB VIEW ONLY) 41.38 mg/dL; PROTEIN < 6.0 mg/dL
[2024-06-09 17:26] LABS: Albumin 3.9 g/dL (3.4-5.0); Anion Gap 7.2 mmol/L (3-11); BUN 17 mg/dL (7-18); CO2 29.8 mmol/L (21.0-32.0); CREATININE 1.4 mg/dL (0.70-1.30); Calcium 9.2 mg/dL (8.5-10.1); Chloride 105 mmol/L (98-107); Estimated GFR 56.48 (mL/min/1.73m2); Glucose 105 mg/dL (74-106); PHOSPHORUS 4.1 mg/dL (2.6-4.7); Potassium 4.3 mmol/L (3.5-5.1); Sodium 142 mmol/L (136-145); Uric Acid 5.6 mg/dL (3.5-7.2)
[2024-06-09 17:27] LABS: Iron 89 ug/dL (65-175); Total Iron Binding Capacity 305 ug/dL (250-450); Transferrin Sat 29 % (20-55)
[2024-06-09 17:27] LABS: COMMENT (LAB VIEW ONLY) 39.76 mg/dL; Microalb ug/mg Crea 7.5 ug/mg Cr
[2024-06-09 18:05] LABS: Ferritin 67 ng/mL (26-388); Vitamin D 25 Total 39.6 ng/mL (30-100)
[2024-06-12 09:42] LABS: Parathyroid Hormone,Intact 93 pg/mL (19-88)
== END 2024-06-09 02:51 | disposition home or self-care (01) ==
PROVIDERS: Visit Provider Registered Nurse
DX: R79.89 Other specified abnormal findings of blood chemistry (principal); N18.31 Chronic kidney disease, stage 3a; I70.1 Atherosclerosis of renal artery
CPT/HCPCS: 36415; 80048; 82306; 82040; 82043; 82565; 82570; 82728; 83540; 83550; 83970; 84100; 84156; 84550; 85025

== ENCOUNTER 2025-01-22 04:15 | Outpatient (CLI) | payer BC, SELFPAY ==
[2025-01-22 16:37] LABS: Abs Immature Grans 0.03 10^3/uL (0.0-0.06); Absolute Basophil Count 0.07 10^3/uL (0.0-0.2); Absolute Eosinophil Count 0.31 10^3/uL (0.0-0.7); Absolute Lymphocyte Count 1.53 10^3/uL (1.2-3.4); Absolute Monocyte Count 0.74 10^3/uL (0.1-0.8); Absolute Neutrophil Count 2.46 10^3/uL (1.2-6.7); Basophils % 1.4 %; HCT 44.3 % (40.0-50.0); HGB 14.7 g/dL (13.5-17.5); Immature Grans % 0.6 %; Lymphocytes % 29.8 %; MCH 31.1 pg (27.0-33.0); MCHC 33.2 % (32.0-36.0); MCV 94 fL (80-95); MPV 11.8 fL (8.0-11.0); Monocytes % 14.4 %; Neutrophils % 47.8 %; Platelet Count 149 10^3/uL (130-400); RBC 4.72 10^6/uL (4.36-5.78); RDW 11.9 % (11.8-14.1); RDW-SD 41.6 fL; WBC 5.14 10^3/uL (4.4-10.8)
[2025-01-22 16:43] LABS: Bilirubin Negative (Negative); Blood Negative (Negative); Clarity Clear (Clear); Glucose Negative (Negative); Ketones Negative (Negative); Leukocyte Esterase Negative (Negative); Nitrite Negative (Negative); Urobilinogen 0.2 mg/dL (Up to 0.2); pH 6.5 (5-8)
[2025-01-22 17:41] LABS: COMMENT (LAB VIEW ONLY) 20.97 mg/dL; PROTEIN < 6.0 mg/dL
[2025-01-22 17:50] LABS: Albumin 4.2 g/dL (3.4-5.0); Anion Gap 7.3 mmol/L (3-11); BUN 25 mg/dL (7-18); CO2 29.7 mmol/L (21.0-32.0); CREATININE 1.5 mg/dL (0.70-1.30); Calcium 9.1 mg/dL (8.5-10.1); Chloride 104 mmol/L (98-107); Estimated GFR 51.67 (mL/min/1.73m2); Glucose 85 mg/dL (74-106); PHOSPHORUS 4.3 mg/dL (2.6-4.7); Potassium 4.3 mmol/L (3.5-5.1); Sodium 141 mmol/L (136-145)
[2025-01-22 18:05] LABS: Iron 103 ug/dL (65-175); Total Iron Binding Capacity 307 ug/dL (250-450); Transferrin Sat 34 % (20-55)
[2025-01-23 00:23] LABS: Ferritin 77 ng/mL (26-388); Vitamin D 25 Total 39 ng/mL (30-100)
[2025-01-23 19:22] LABS: Parathyroid Hormone,Intact 117 pg/mL (19-88)
== END 2025-01-22 04:16 | disposition home or self-care (01) ==
PROVIDERS: Visit Provider Nurse Practitioner
DX: N18.31 Chronic kidney disease, stage 3a (principal)
CPT/HCPCS: 36415; 80048; 82306; 81003; 82040; 82565; 82728; 83540; 83550; 83970; 84100; 84156; 85025